=== PATIENT | male | born 1950 | race Caucasian/White ===

== ENCOUNTER 2017-02-19 07:51 | Inpatient (IN) ==
[2017-02-19] MEDS ORDERED: 0.9 % Sodium Chloride 1,000 ML IVC ONE ×3 (08:03→11:12)
[2017-02-19] MEDS ORDERED: *HR* Morphine 2 MG/ML SYRINGE IVP ONE ×2 (08:03→11:12)
[2017-02-19] MEDS ORDERED: Ondansetron 4 MG/2 ML VIAL IVP ONE ×2 (08:03→11:12)
[2017-02-19] MEDS ORDERED: Verapamil 5 MG/2 ML VIAL IVP ONE (08:04)
--- NOTE | 2017-02-19 08:05 | Emergency Department Note ---
Disposition Clinical Impression: Pneumonitis, Leukocytosis, Acute exacerbation of chronic obstructive airways disease, Diarrhea Disposition: Admitted As Inpatient General Adult HPI - General Chief complaint: ED Shortness of Breath/Dyspnea Stated complaint: LAILA Time Seen by Provider: 02/19/17 07:52 Source: patient, EMS Limitations: no limitations - History of Present Illness Pain Scale: 8 - Related Data Home Medications Medication Instructions Recorded Confirmed Albuterol Neb [Proventil Neb] 2.5 mg IH TID 02/19/17 02/19/17 Albuterol Sulfate [Albuterol 2 puff IH Q6H PRN 02/19/17 02/19/17 Inhaler] Alendronate Sodium [Fosamax] 70 mg PO WE 02/19/17 02/19/17 Alprostadil [[place]] 500 mcg UR AD PRN 02/19/17 02/19/17 Atorvastatin [Lipitor] 40 mg PO HS 02/19/17 02/19/17 Budesonide/Formoterol 160/4.5 2 puff IH BIDR 02/19/17 02/19/17 [Symbicort 160/4.5] Cetirizine HCl [All Day Allergy] 10 mg PO DAILY 02/19/17 02/19/17 Diclofenac Sodium [Voltaren] 1 appl TP BID 02/19/17 02/19/17 Gabapentin [Neurontin] 900 mg PO TID 02/19/17 02/19/17 Melatonin 10 mg PO HS 02/19/17 02/19/17 Multivitamin [Multi-Day Vitamins] 1 each PO DAILY 02/19/17 02/19/17 Nicotine Patch [Nicoderm] 7 mg TD DAILY 02/19/17 02/19/17 Omeprazole [PriLOSEC] 20 mg PO DAILY 02/19/17 02/19/17 Oxycodone HCl/Acetaminophen 1 each PO 5XD PRN 02/19/17 02/19/17 [Percocet 10-325 mg Tablet] Potassium Chloride [K-Tab ER] 10 meq PO DAILY 02/19/17 02/19/17 Sertraline [Zoloft] 100 mg PO DAILY 02/19/17 02/19/17 Theophylline Anhydrous [Oliver-24] 200 mg PO DAILY 02/19/17 02/19/17 Verapamil HCl [Verapamil ER] 180 mg PO DAILY 02/19/17 02/19/17 Zolpidem [Ambien] 10 mg PO HS 02/19/17 02/19/17 predniSONE [PredniSONE] 10 mg PO DAILY 02/19/17 02/19/17 Allergies Allergy/AdvReac Type Severity Reaction Status Date / Time tiotropium Allergy Rash Verified 03/15/16 22:23 [From Spiriva with HandiHaler] bee stings AdvReac Anaphylaxis Uncoded 02/19/17 14:16 Past Medical History - Past Medical History Medical history: Reports: atrial fibrillation, COPD, coronary artery disease, fibromyalgia, GERD, hyperlipidemia, hypertension, valvular heart disease Surgical history: Reports: appendectomy, other Psychiatric history: Reports: anxiety, depression - Social History Smoking Status: Current every day smoker Smokeless Tobacco Status: No Alcohol use: Reports: none Drug use: Reports: none Physical Exam - General Limitations: no limitations General appearance: alert, in distress Course Vital Signs Temperature 97.8 F 02/19/17 07:52 Pulse Rate 132 02/19/17 07:52 Respiratory Rate 28 02/19/17 07:52 Blood Pressure 119/67 02/19/17 07:52 O2 Sat by Pulse Oximetry 99 02/19/17 07:52 Temperature 98.5 F 02/20/17 11:07 Pulse Rate 89 02/20/17 11:07 Respiratory Rate 18 02/20/17 11:07 Blood Pressure 121/82 02/20/17 11:07 O2 Sat by Pulse Oximetry 98 02/20/17 11:07 Oxygen Delivery Oxygen Delivery Nasal Cannula Medical Decision Making - Lab Data Result diagrams: 02/20/17 03:56 02/20/17 03:56 Lab Results 02/19/17 02/19/17 02/19/17 Range/Units 08:20 08:20 08:20 WBC 21.3 H (4.3-11.1) K/mcL RBC 5.12 (4.19-5.50) M/mcL Hgb 14.7 (12.9-16.9) g/dL Hct 45.3 (37.5-50.1) % MCV 88.5 (83.0-100.0) fL MCH 28.7 (28.0-33.3) pg MCHC 32.5 (31.6-35.5) g/dL RDW 14.0 (11.5-14.5) % Plt Count 332 (140-400) K/mcL MPV 8.9 L (9.4-12.4) fL Immature Gran % 0.9 (0-4) % Seg Neutrophils % 81.3 % Lymphocytes % 9.5 % Monocytes % 7.2 % Eosinophils % 0.8 % Basophils % 0.3 % Neutrophils # 17.3 H (1.6-8.9) K/mcL Lymphocytes # 2.0 (0.6-4.6) K/mcL Monocytes # 1.5 H (0.0-1.3) K/mcL Eosinophils # 0.2 (0.0-0.6) K/mcL Basophils # 0.1 (0.0-0.2) K/mcL D-Dimer (0-500) ng/mLFEU Sodium (136-145) mEq/L Potassium (3.5-4.5) mEq/L Chloride (98-109) mEq/L Carbon Dioxide (19-29) mEq/L BUN (8-26) mg/dL Creatinine (0.72-1.25) mg/dL Est GFR ( Amer) (> 60) Est GFR (Non-Af Amer) (> 60) BUN/Creatinine Ratio (6-26) Glucose (70-99) mg/dL Calculated Osmolality (280-300) Lactic Acid 1.0 (0.5-2.2) mmol/L Calcium (8.6-10.8) mg/dL Total Bilirubin (0.2-1.2) mg/dL Direct Bilirubin (0.0-0.5) mg/dL Indirect Bilirubin (0.0-1.2) mg/dL AST (5-34) Units/L ALT (0-55) Units/L Alkaline Phosphatase (38-126) Units/L Troponin I 0.02 (0-0.03) ng/mL B-Natriuretic Peptide (0-100) pg/mL Serum Total Protein (6.0-8.3) g/dL Albumin (3.5-5.0) g/dL Globulin (2.4-3.5) g/dL Albumin/Globulin Ratio (1.1-2.2) Lipase (8-78) Units/L Stl C. diff Tox B Gene (Negative) 02/19/17 02/19/17 02/19/17 Range/Units 08:20 08:20 11:27 WBC (4.3-11.1) K/mcL RBC (4.19-5.50) M/mcL Hgb (12.9-16.9) g/dL Hct (37.5-50.1) % MCV (83.0-100.0) fL MCH (28.0-33.3) pg MCHC (31.6-35.5) g/dL RDW (11.5-14.5) % Plt Count (140-400) K/mcL MPV (9.4-12.4) fL Immature Gran % (0-4) % Seg Neutrophils % % Lymphocytes % % Monocytes % % Eosinophils % % Basophils % % Neutrophils # (1.6-8.9) K/mcL Lymphocytes # (0.6-4.6) K/mcL Monocytes # (0.0-1.3) K/mcL Eosinophils # (0.0-0.6) K/mcL Basophils # (0.0-0.2) K/mcL D-Dimer (0-500) ng/mLFEU Sodium 136 (136-145) mEq/L Potassium 4.2 (3.5-4.5) mEq/L Chloride 101 (98-109) mEq/L Carbon Dioxide 25 (19-29) mEq/L BUN 16 (8-26) mg/dL Creatinine 0.78 (0.72-1.25) mg/dL Est GFR ( Amer) > 60 (> 60) Est GFR (Non-Af Amer) > 60 (> 60) BUN/Creatinine Ratio 21 (6-26) Glucose 99 (70-99) mg/dL Calculated Osmolality 283 (280-300) Lactic Acid (0.5-2.2) mmol/L Calcium 9.6 (8.6-10.8) mg/dL Total Bilirubin 0.6 (0.2-1.2) mg/dL Direct Bilirubin 0.3 (0.0-0.5) mg/dL Indirect Bilirubin 0.3 (0.0-1.2) mg/dL AST 20 (5-34) Units/L ALT 14 (0-55) Units/L Alkaline Phosphatase 66 (38-126) Units/L Troponin I (0-0.03) ng/mL B-Natriuretic Peptide 44 (0-100) pg/mL Serum Total Protein 8.0 (6.0-8.3) g/dL Albumin 2.7 L (3.5-5.0) g/dL Globulin 5.3 H (2.4-3.5) g/dL Albumin/Globulin Ratio 0.5 L (1.1-2.2) Lipase 10 (8-78) Units/L Stl C. diff Tox B Gene Negative (Negative) 02/19/17 02/19/17 02/19/17 Range/Units 13:34 14:42 14:42 WBC (4.3-11.1) K/mcL RBC (4.19-5.50) M/mcL Hgb (12.9-16.9) g/dL Hct (37.5-50.1) % MCV (83.0-100.0) fL MCH (28.0-33.3) pg MCHC (31.6-35.5) g/dL RDW (11.5-14.5) % Plt Count (140-400) K/mcL MPV (9.4-12.4) fL Immature Gran % (0-4) % Seg Neutrophils % % Lymphocytes % % Monocytes % % Eosinophils % % Basophils % % Neutrophils # (1.6-8.9) K/mcL Lymphocytes # (0.6-4.6) K/mcL Monocytes # (0.0-1.3) K/mcL Eosinophils # (0.0-0.6) K/mcL Basophils # (0.0-0.2) K/mcL D-Dimer 1183 H (0-500) ng/mLFEU Sodium (136-145) mEq/L Potassium (3.5-4.5) mEq/L Chloride (98-109) mEq/L Carbon Dioxide (19-29) mEq/L BUN (8-26) mg/dL Creatinine (0.72-1.25) mg/dL Est GFR ( Amer) (> 60) Est GFR (Non-Af Amer) (> 60) BUN/Creatinine Ratio (6-26) Glucose (70-99) mg/dL Calculated Osmolality (280-300) Lactic Acid 0.7 0.7 (0.5-2.2) mmol/L Calcium (8.6-10.8) mg/dL Total Bilirubin (0.2-1.2) mg/dL Direct Bilirubin (0.0-0.5) mg/dL Indirect Bilirubin (0.0-1.2) mg/dL AST (5-34) Units/L ALT (0-55) Units/L Alkaline Phosphatase (38-126) Units/L Troponin I (0-0.03) ng/mL B-Natriuretic Peptide (0-100) pg/mL Serum Total Protein (6.0-8.3) g/dL Albumin (3.5-5.0) g/dL Globulin (2.4-3.5) g/dL Albumin/Globulin Ratio (1.1-2.2) Lipase (8-78) Units/L Stl C. diff Tox B Gene (Negative) Attestation Statement - Attestation Attestation: For this encounter, I have reviewed the DRY MIXER or PA documentation, treatment plan, and medical decision making; and I have had face to face time with this patient. [id number] time provided Patient presents by EMS complaining of cough, dyspnea, centralized abdominal pain. Patient appears tachypneic and dyspneic on exam. Appears older than stated age. Tachycardic narrow complex rhythm reviewed on the ECG. Patient notes she has a history of atrial fibrillation but does not take blood thinners
[2017-02-19] MEDS ORDERED: Albuterol 2.5 MG/3 ML NEBULIZER IH ONE (08:07)
--- NOTE | 2017-02-19 08:22 | Emergency Department Note ---
Disposition Clinical Impression: Pneumonitis, Acute exacerbation of chronic obstructive airways disease Leukocytosis Qualifiers: Leukocytosis type: unspecified Qualified Code(s): D72.829 - Elevated white blood cell count, unspecified Diarrhea Qualifiers: Diarrhea type: presumed infectious Qualified Code(s): A09 - Infectious gastroenteritis and colitis, unspecified Disposition: Admitted As Inpatient Forms: ED Satisfaction Letter Abdominal Pain HPI - General Chief Complaint: ED Shortness of Breath/Dyspnea Stated Complaint: LAILA Time Seen by Provider: 02/19/17 07:52 Source: patient, family, EMS Mode of arrival: EMS Limitations: no limitations Nursing Notes Reviewed: Yes Vital Signs Reviewed: Yes - History of Present Illness Pt Subjective Complaint: abdominal pain, other (short of breath, cough, fever, sweating) Onset (ago): day(s) Consistency: constant, Worsening Location: epigastric Pain Severity: moderate Pain Scale: 8 Quality: fullness (like a knot) Radiation: none Migration to: no migration Improves with: nothing Worsens with: nothing Context: other ("sick for a few days and getting worse, now having diarrhea too. ") Associated symptoms: Reports: nausea, diarrhea, fever, chills. Denies: vomiting , constipation, dysuria, hematemesis, hematochezia, melena, hematuria, anorexia , syncope Treatments prior to arrival: none (patient states that he did not take his home meds - Verapamil - today) - Related Data Home Medications Medication Instructions Recorded Confirmed Albuterol Neb [Proventil Neb] 2.5 mg IH TID 02/19/17 02/19/17 Albuterol Sulfate [Albuterol 2 puff IH Q6H PRN 02/19/17 02/19/17 Inhaler] Alendronate Sodium [Fosamax] 70 mg PO WE 02/19/17 02/19/17 Alprostadil [[place]] 500 mcg UR AD PRN 02/19/17 02/19/17 Atorvastatin [Lipitor] 40 mg PO HS 02/19/17 02/19/17 Budesonide/Formoterol 160/4.5 2 puff IH BIDR 02/19/17 02/19/17 [Symbicort 160/4.5] Cetirizine HCl [All Day Allergy] 10 mg PO DAILY 02/19/17 02/19/17 Diclofenac Sodium [Voltaren] 1 appl TP BID 02/19/17 02/19/17 Gabapentin [Neurontin] 900 mg PO TID 02/19/17 02/19/17 Melatonin 10 mg PO HS 02/19/17 02/19/17 Multivitamin [Multi-Day Vitamins] 1 each PO DAILY 02/19/17 02/19/17 Nicotine Patch [Nicoderm] 7 mg TD DAILY 02/19/17 02/19/17 Omeprazole [PriLOSEC] 20 mg PO DAILY 02/19/17 02/19/17 Oxycodone HCl/Acetaminophen 1 each PO 5XD PRN 02/19/17 02/19/17 [Percocet 10-325 mg Tablet] Potassium Chloride [K-Tab ER] 10 meq PO DAILY 02/19/17 02/19/17 Sertraline [Zoloft] 100 mg PO DAILY 02/19/17 02/19/17 Theophylline Anhydrous [Oliver-24] 200 mg PO DAILY 02/19/17 02/19/17 Verapamil HCl [Verapamil ER] 180 mg PO DAILY 02/19/17 02/19/17 Zolpidem [Ambien] 10 mg PO HS 02/19/17 02/19/17 predniSONE [PredniSONE] 10 mg PO DAILY 02/19/17 02/19/17 Allergies Allergy/AdvReac Type Severity Reaction Status Date / Time tiotropium Allergy Rash Verified 03/15/16 22:23 [From Spiriva with HandiHaler] All systems ED: reviewed and negative except as stated. Review of Systems: As Per HPI Constitutional: Reports: fever, chills, weakness. Denies: weight change, night sweats Eyes: Denies: eye pain, eye discharge, vision change ENT ED: Denies: ear pain, throat pain, congestion, dysphagia Cardiovascular: Reports: dyspnea on exertion. Denies: chest pain, palpitations (Laboratory), orthopnea, edema, syncope Respiratory: Reports: cough ("different than usual"), dyspnea ("about as bad as usual"), wheezes, sputum production ("yellow, different than usual"). Denies: hemoptysis, stridor Gastrointestinal: Reports: as per HPI, abdominal pain, nausea, diarrhea. Denies : vomiting, constipation, hematemesis, melena, hematochezia Genitourinary: Denies: urgency, dysuria, frequency, hematuria Musculoskeletal: Reports: back pain ("Chronic, low back pain" "No worse than usual"), neck pain ("also chronic"). Denies: joint swelling, arthralgia Integumentary: Denies: rash, abrasion, lesions, pruritus Neurological: Reports: weakness ("all over"). Denies: headache, numbness, paresthesias, confusion, abnormal gait, vertigo Endocrine: Reports: fatigue Hematological/Lymphatic: Denies: easy bleeding, easy bruising Abdominal Pain PMH - Past Medical History Medical history: Reports: atrial fibrillation, COPD, coronary artery disease, fibromyalgia, GERD, hyperlipidemia, hypertension, valvular heart disease Male Surgical History: Reports: Adenoidectomy, Tonsillectomy Psychiatric history: Reports: anxiety, depression - Social History Smoking status: Current every day smoker Alcohol use: Reports: none Drug use: Reports: none Physical Exam - General Limitations: no limitations General appearance: alert, in distress - Head Head exam: atraumatic, normocephalic, normal inspection - Eye Eye exam: Present: normal appearance, PERRL, EOMI. Absent: scleral icterus, conjunctival injection, periorbital swelling - ENT ENT exam: mucous membranes dry - Neck Neck exam: Present: normal inspection, full ROM, trachea midline. Absent: meningismus, lymphadenopathy - Chest Chest inspection: Present: normal inspection, symmetric chest wall rise - Respiratory Respiratory exam: Present: respiratory distress, wheezes, prolonged expiratory phase, other (course rhonchi - bilateral lower). Absent: normal lung sounds bilaterally, stridor, accessory muscle use - Cardiovascular Cardiovascular exam: Present: tachycardia, irregular rhythm. Absent: systolic murmur, diastolic murmur - Abdominal Exam Abdominal exam: Present: soft, tenderness, hyperactive bowel sounds. Absent: distention, guarding, rebound, rigidity, organomegaly, Skinner's sign, tenderness at McBurney's Point, ascites, mass, pulsatile mass Abdominal tenderness: Present: epigastrium, moderate - Extremities Exam Extremities exam: Present: normal inspection, full ROM, normal capillary refill. Absent: tenderness, pedal edema - Back Exam Back exam: Present: normal inspection - Neurological Exam Neurological exam: Present: alert, oriented X3, CN II-XII intact - Psychiatric Psychiatric exam: Present: normal affect, normal mood - Skin Skin exam: Present: warm, dry, intact, normal color Course Course Narrative: Patient presents with his for evaluation of epigastric abdominal pain for the past several days. He states, "I am just really sick." He describes feeling feverish with episodes of diaphoresis. He has had the pain for 3-4 days and diarrhea that began last night. He is tachycardic and tachypneic. Will give fluids, pain meds, check labs and scan chest and belly Labs show an elevated white blood cell count and low albumin. Chest x-ray shows no acute abnormality. However, chest CT and CT of the abdomen and pelvis , both show basilar infiltrate along with some chronic changes to both lungs. Incidental findings include lung and liver nodules. Given the patient's fever, chills, leukocytosis, change in cough and change in sputum, I am concerned that the pneumonitis is from pneumonia. Antibiotics have been ordered. Patient will be admitted. Case was discussed with the hospitalist. She recommends Rocephin and azithromycin as opposed to the vancomycin and Zosyn, which had been ordered. Unfortunately, the nurse had already given the vancomycin and Zosyn, so I canceled the order for the other antibiotics. Patient was accepted for admission. - Reevaluation(s) Reevaluation #1: pain better, HR 90, Sat 98%, BP 108/62 Time: 08:39 Vital Signs Temperature 97.8 F 02/19/17 07:52 Pulse Rate 132 02/19/17 07:52 Respiratory Rate 28 02/19/17 07:52 Blood Pressure 119/67 02/19/17 07:52 O2 Sat by Pulse Oximetry 99 02/19/17 07:52 Temperature 97.8 F 02/19/17 07:52 Pulse Rate 132 02/19/17 07:52 Respiratory Rate 28 02/19/17 07:52 Blood Pressure 119/67 02/19/17 07:52 O2 Sat by Pulse Oximetry 99 02/19/17 07:52 Oxygen Delivery Oxygen Delivery Nasal Cannula Abdominal Pain - Medical Records Medical records reviewed: Yes I reviewed the patient's medical records. - Lab Data Lab results reviewed: Yes I reviewed the patient's lab results. Lab results narrative: Laboratory Last Values WBC 21.3 K/mcL (4.3-11.1) H 02/19/17 08:20 RBC 5.12 M/mcL (4.19-5.50) 02/19/17 08:20 Hgb 14.7 g/dL (12.9-16.9) 02/19/17 08:20 Hct 45.3 % (37.5-50.1) 02/19/17 08:20 MCV 88.5 fL (83.0-100.0) 02/19/17 08:20 MCH 28.7 pg (28.0-33.3) 02/19/17 08:20 MCHC 32.5 g/dL (31.6-35.5) 02/19/17 08:20 RDW 14.0 % (11.5-14.5) 02/19/17 08:20 Plt Count 332 K/mcL (140-400) 02/19/17 08:20 MPV 8.9 fL (9.4-12.4) L 02/19/17 08:20 Immature Gran % 0.9 % (0-4) 02/19/17 08:20 Seg Neutrophils % 81.3 % 02/19/17 08:20 Lymphocytes % 9.5 % 02/19/17 08:20 Monocytes % 7.2 % 02/19/17 08:20 Eosinophils % 0.8 % 02/19/17 08:20 Basophils % 0.3 % 02/19/17 08:20 Neutrophils # 17.3 K/mcL (1.6-8.9) H 02/19/17 08:20 Lymphocytes # 2.0 K/mcL (0.6-4.6) 02/19/17 08:20 Monocytes # 1.5 K/mcL (0.0-1.3) H 02/19/17 08:20 Eosinophils # 0.2 K/mcL (0.0-0.6) 02/19/17 08:20 Basophils # 0.1 K/mcL (0.0-0.2) 02/19/17 08:20 Sodium 136 mEq/L (136-145) 02/19/17 08:20 Potassium 4.2 mEq/L (3.5-4.5) 02/19/17 08:20 Chloride 101 mEq/L (98-109) 02/19/17 08:20 Carbon Dioxide 25 mEq/L (19-29) 02/19/17 08:20 BUN 16 mg/dL (8-26) 02/19/17 08:20 Creatinine 0.78 mg/dL (0.72-1.25) 02/19/17 08:20 Est GFR ( Amer) > 60 (> 60) 02/19/17 08:20 Est GFR (Non-Af Amer) > 60 (> 60) 02/19/17 08:20 BUN/Creatinine Ratio 21 (6-26) 02/19/17 08:20 Glucose 99 mg/dL (70-99) 02/19/17 08:20 Calculated Osmolality 283 (280-300) 02/19/17 08:20 Lactic Acid 1.0 mmol/L (0.5-2.2) 02/19/17 08:20 Calcium 9.6 mg/dL (8.6-10.8) 02/19/17 08:20 Total Bilirubin 0.6 mg/dL (0.2-1.2) 02/19/17 08:20 Direct Bilirubin 0.3 mg/dL (0.0-0.5) 02/19/17 08:20 Indirect Bilirubin 0.3 mg/dL (0.0-1.2) 02/19/17 08:20 AST 20 Units/L (5-34) 02/19/17 08:20 ALT 14 Units/L (0-55) 02/19/17 08:20 Alkaline Phosphatase 66 Units/L (38-126) 02/19/17 08:20 Troponin I 0.02 ng/mL (0-0.03) 02/19/17 08:20 B-Natriuretic Peptide 44 pg/mL (0-100) 02/19/17 08:20 Serum Total Protein 8.0 g/dL (6.0-8.3) 02/19/17 08:20 Albumin 2.7 g/dL (3.5-5.0) L 02/19/17 08:20 Globulin 5.3 g/dL (2.4-3.5) H 02/19/17 08:20 Albumin/Globulin Ratio 0.5 (1.1-2.2) L 02/19/17 08:20 Lipase 10 Units/L (8-78) 02/19/17 08:20 - Radiology Data Radiology results reviewed: Yes I reviewed the patient's radiology results. Chest X-Ray 02/19/17 08:02 IMPRESSION: Moderate to severe parenchymal scarring parahilar and upper lungs with emphysema and hilar retraction. This is unchanged. D/ / Blaise Bunch MD / Blaise Bunch MD Interpreting Provider: Blaise Bunch MD Abdomen/Pelvis CT 02/19/17 08:08 IMPRESSION: Liquefied stool is seen within the colon, in keeping with patient's history of diarrhea. Fluctuating heterogeneous and nodular infiltrate is seen at the lung bases, likely reflecting pneumonitis. A new 1.4 cm left lower lobe cavitary nodule is seen which may be infectious, though neoplasm cannot be excluded. Continued CT follow-up is recommended. 1.2 cm low-density lesion is seen within the right hepatic lobe, with density greater than simple cyst, technically indeterminate. Continued CT follow-up may be obtained as clinically warranted. D/ / Alvaro Juarez MD / Alvaro Juarez MD Interpreting Provider: Alvaro Juarez MD Chest CT 02/19/17 08:08 IMPRESSION: Extensive bullous and emphysematous change bilaterally with multifocal associated marginal thickening and pleural thickening. Multifocal ill-defined parenchymal airspace opacity and nodular densities are improved from the prior. There is also improvement of the mediastinal lymph nodes. These findings are indeterminate and may be related to a chronic inflammatory/ infectious process or granulomatous process that has improved. Recurrent inflammatory/ infectious or granulomatous process would be difficult to exclude given the long interval between the 2 exams. Neoplastic nodules less likely. D/ / Saeid Monterroso / Saeid Monterroso Interpreting Provider: Saeid Monterroso
[2017-02-19 08:27] LABS: Basophils # 0.1 K/mcL (0.0-0.2); Basophils % 0.3 %; Eosinophils # 0.2 K/mcL (0.0-0.6); Eosinophils % 0.8 %; Hematocrit 45.3 % (37.5-50.1); Hemoglobin 14.7 g/dL (12.9-16.9); Immature Granulocytes % 0.9 % (0-4); Lymphocytes % 9.5 %; Mean Corpuscular HGB Conc 32.5 g/dL (31.6-35.5); Mean Corpuscular Hemoglobin 28.7 pg (28.0-33.3); Mean Corpuscular Volume 88.5 fL (83.0-100.0); Mean Platelet Volume 8.9 fL (9.4-12.4); Monocytes # 1.5 K/mcL (0.0-1.3); Monocytes % 7.2 %; Neutrophils # 17.3 K/mcL (1.6-8.9); Platelet Count 332 K/mcL (140-400); Red Blood Count 5.12 M/mcL (4.19-5.50); Segmented Neutrophils % 81.3 %
[2017-02-19 08:43] LABS: Alanine Aminotransferase 14 Units/L (0-55); Albumin 2.7 g/dL (3.5-5.0); Albumin/Globulin Ratio 0.5 (1.1-2.2); Alkaline Phosphatase 66 Units/L (38-126); Aspartate Amino Transferase 20 Units/L (5-34); BUN/Creatinine Ratio 21 (6-26); Bilirubin,Direct 0.3 mg/dL (0.0-0.5); Bilirubin,Indirect 0.3 mg/dL (0.0-1.2); Bilirubin,Total 0.6 mg/dL (0.2-1.2); Blood Urea Nitrogen 16 mg/dL (8-26); Calcium 9.6 mg/dL (8.6-10.8); Carbon Dioxide 25 mEq/L (19-29); Chloride 101 mEq/L (98-109); Globulin 5.3 g/dL (2.4-3.5); Glucose 99 mg/dL (70-99); Lipase 10 Units/L (8-78); Osmolality,Calculated 283 (280-300); Potassium 4.2 mEq/L (3.5-4.5); Sodium 136 mEq/L (136-145); eGFR For African Americans > 60 (> 60); eGFR For Non-African Americans > 60 (> 60)
[2017-02-19] MEDS ORDERED: Piperacillin/Tazobactam 4.5 GM in D5% in Water (Mini-Bag+) 100 ML IVPB ONE ×2 (11:07→12:00)
[2017-02-19] MEDS ORDERED: Vancomycin 1,000 MG in D5% in Water 250 ML IVPB ONE ×2 (11:13→12:00)
[2017-02-19] MEDS ORDERED: methylPREDNISolone 125 MG/2 ML VIAL IVP ONE (11:14)
[2017-02-19] MEDS ORDERED: Azithromycin 500 MG in D5% in Water 250 ML IVPB ONE (11:40)
[2017-02-19] MEDS ORDERED: Naloxone 0.4 MG/ML INJ IVP PRN (13:56)
[2017-02-19] MEDS ORDERED: Ondansetron 4 MG/2 ML VIAL IVP PRN (13:59)
[2017-02-19] MEDS ORDERED: Acetaminophen 325 MG TABLET PO PRN (13:59)
[2017-02-19] MEDS ORDERED: ALPROSTADIL 500 MCG UR PRN (14:08)
[2017-02-19] MEDS ORDERED: *HR* Dextrose 50 % in Water (Syg) 50 ML SYRINGE IVP PRN (14:17)
[2017-02-19] MEDS ORDERED: Dextrose Gel 15 GM PO PRN ×2 (14:17)
[2017-02-19] MEDS ORDERED: D5% in Water 1,000 ML IVC PRN (14:17)
[2017-02-19] MEDS: 0.9 % Sodium Chloride 1,000 ML IVC SCH ×2 (14:30→23:56)
[2017-02-19] MEDS: Nicotine 14 MG PATCH.TD24 TD SCH (15:15)
[2017-02-19] MEDS: Azithromycin 500 MG in D5% in Water 250 ML IVPB SCH (15:15)
[2017-02-19] MEDS: Gabapentin 300 MG CAPSULE PO SCH ×2 (15:20→21:16)
[2017-02-19] MEDS: *HR* Morphine 2 MG/ML SYRINGE IVP PRN (15:20)
[2017-02-19] MEDS: Aspirin Enteric Coated 81 MG Tablet PO SCH (15:50)
--- NOTE | 2017-02-19 16:30 | Event Note ---
Date of Encounter: 02/19/17 Time of Encounter: 16:24 Patient is seen and examined independently on 02/19/17 66 M with medical history of emphysema, steroid dependent COPD on home oxygen. He has additional medical history of atrial fibrillation, coronary artery disease, fibromyalgia, GERD tobacco abuse. He smokes 1-2 He reports 4 days history of shortness of breath, nausea, epigastric pain, fever and chills. He also reports worsening cough productive of sputum. On presentation to the ER he was found to be tachycardic heart rate in the 130s , respiratory rate 24, and hypoxic. Work up showed Leukocytosis with a total white cell count of 21,800, his hemoglobin is normal. troponin negative, Chem WNL. Chest CT shows extensive bullous emphysema, and bilateral pneumonia. On physical exam, his heart rate is now within normal limits 88 bpm, his blood pressure is normal, his respiratory rate is 20, he is saturating 96% on 2 L of oxygen by nasal cannula, he is not in any form of respiratory distress, he speaks full sentences. His conjunctiva is not pale, sclerae anicteric. He is not cyanotic. He has bilateral rales and rhonchi on the lung bases. Heart sounds S1-S2 only, no murmurs gallops or rubs. Abdomen is soft and nontender no palpable organ enlargement. Extremities with no pedal edema. Labs and imaging reviewed as stated above. Assessment and plan. 1. Presumed sepsis secondary to bilateral pneumonia, community-acquired, patient has had no recent hospital hospitalizations. Continue ceftriaxone 2 g daily, azithromycin 500 mg daily IV. Send urine for Legionella and streptococcal antigen. Obtain sputum culture, obtain blood culture. Continue oxygen supplements. BP is WNL, lactate is normal. 2. COPD exacerbation continue Solu-Medrol, nebs every 4, and albuterol when necessary. 3. Atrial fibrillation-CHADS score is 1. Patient is not on anticoagulation at home. Continue home medications. 4. Coronary artery disease patient has no chest pain, continue home medications. Tobacco cessation counseling is done. Rest of details as in DONNA Marsh's documentation.
[2017-02-19] MEDS: Ipratropium/Albuterol Neb 3 ML IH SCH ×2 (17:26→21:04)
[2017-02-19 17:31] LABS: ABG Base Excess -2.2 mEq/L (-2.0 to 3.0); ABG HCO3 24 mEq/L (21-27); ABG Oxygen Saturation 96 % (95-98); ABG PCO2 47 mmHg (35-45); ABG PH 7.32 pH Units (7.32-7.45); ABG PO2 90 mmHg (85-104); ABG TCO2 25.6 mEq/L (20-26)
[2017-02-19 17:35] LABS: Blood Gas FiO2 28 %
[2017-02-19] MEDS: Insulin LISPRO 300 UNITS/3 ML VIAL SQ SCH (17:45)
[2017-02-19] MEDS ORDERED: Melatonin 3 MG TABLET PO SCH (21:00)
[2017-02-19] MEDS ORDERED: Insulin LISPRO 300 UNITS/3 ML VIAL SQ SCH (21:00)
[2017-02-19] MEDS: Pantoprazole 40 MG VIAL IVP SCH (21:15)
[2017-02-19] MEDS: *HR* Heparin 5,000 UNIT/ML VIAL SQ SCH (21:16)
[2017-02-19] MEDS: (Diclofenac Sodium [Voltaren] 1 APPL) TP SCH (21:24)
--- NOTE | 2017-02-19 22:20 | Internal Med History&Physical ---
<Manoj Perez - Last Filed: 02/19/17 23:28> Date of Encounter: 02/19/17 Time of Encounter: 14:00 Assessment and Plan (1) Sepsis Current visit: Yes Status: Acute Patient presents with sepsis criteria secondary to bilateral pneumonia which is suspected to be community-acquired due to patient not having any recent hospitalizations. Legionella antigen and streptococcal pneumoniae antigen ordered. Sputum culture ordered. Blood cultures 2 ordered. Will administer IV ceftriaxone 2 g daily and azithromycin 500 mg daily. Patient will be placed on continuous cardiac telemetry, supplemental O2 with SPO2 monitoring, and follow-up labs ordered. Currently BP is within normal limits in lactate is normal. Qualifiers: Sepsis type: sepsis due to unspecified organism Qualified Code(s): A41.9 - Sepsis, unspecified organism (2) Leukocytosis Current visit: Yes Status: Acute Patient presents with leukocytosis secondary to sepsis. Patient's WBC on admission to ED is 21.3. Will monitor patient's WBC through follow-up labs. Qualifiers: Leukocytosis type: unspecified Qualified Code(s): D72.829 - Elevated white blood cell count, unspecified (3) Acute exacerbation of chronic obstructive airways disease Current visit: Yes Status: Acute Patient presents with acute exacerbation of COPD. On examination, patient is extremely short of breath and reports he uses oxygen nightly at 2 L. He denies use of BiPAP or CPAP. We will continue patient's albuterol when necessary, administer Solu-Medrol, and order DuoNebs every 4 scheduled. (4) Afib Current visit: Yes Status: Chronic Patient presents with history of chronic atrial fibrillation. Patient currently denies any chest pain and initial troponin is negative. CHADS score = 1. Patient placed on continuous cardiac telemetry. We will repeat EKG. Qualifiers: Atrial fibrillation type: chronic Qualified Code(s): I48.2 - Chronic atrial fibrillation (5) CAD (coronary artery disease) Current visit: Yes Status: Chronic Patient presents with history of chronic coronary artery disease. Patient currently denies any chest pain and troponin is negative. We will continue patient's home medications. Patient placed on continuous cardiac telemetry to current sepsis infection and hx of atrial fibrillation. Qualifiers: Coronary Disease-Associated Artery/Lesion type: unspecified vessel or lesion type [place] vs. transplanted heart: [place] heart Associated angina: angina presence unspecified Qualified Code(s): I25.10 - Atherosclerotic heart disease of [place] coronary artery without angina pectoris (6) GERD (gastroesophageal reflux disease) Current visit: Yes Status: Chronic Patient reports with history of chronic gastroesophageal reflux disease. IVP Zofran every 6 when necessary an IVP Protonix 40 mg twice a day ordered. Qualifiers: Esophagitis presence: esophagitis presence not specified Qualified Code(s) : K21.9 - Gastro-esophageal reflux disease without esophagitis (7) HLD (hyperlipidemia) Current visit: Yes Status: Chronic Patient presents with history of chronic hyperlipidemia. Lipid panel ordered and will continue patient's Lipitor. Qualifiers: Hyperlipidemia type: pure hypercholesterolemia Qualified Code(s): E78.00 - Pure hypercholesterolemia, unspecified; E78.0 - Pure hypercholesterolemia (8) HTN (hypertension) Current visit: Yes Status: Chronic Patient presents with history of chronic hypertension. Will monitor patient and vital signs and continue patient's verapamil. Qualifiers: Hypertension type: essential hypertension Qualified Code(s): I10 - Essential (primary) hypertension (9) DVT prophylaxis Current visit: Yes Status: Acute Patient placed on DVT prophylaxis due to current admission protocol and current symptoms. Heparin 5000 units SQ every 8 ordered. Internal Medicine - H&P: HPI Chief complaint: SOB/Dyspnea Admitted From: Emergency Dept Plans for Post Hospital Care: Home History of present illness: Mr. Bai is a 66 year old male with medical history of atrial fibrillation COPD with steroid dependency, CAD, fibromyalgia from previous shingles, HLD, HTN, valvular heart disease, and GERD presents to the ED today with a four-day history of SOB, nausea, fever, chills, and epigastric pain area and he also reports cough with sputum production. On admission to ED, patient needs sepsis protocol based on tachycardia and heart rate in 130s, RR 24, hypoxia, and leukocytosis with WBC of 21.8. Troponin is negative and patient currently denies chest pain. Chest CT today shows extensive bullous emphysema and bilateral pneumonia. On physical examination the ED, patient's heart rate is now less than 90 bpm, BP of 119/67 and RR 19 with SPO2 of 96% on 2 L of oxygen via nasal cannula. Patient is hemodynamically stable and currently in no distress. Information taken from patient, chart review, and previous medical records. Mr. Plueckhahn is at high risk for further morbidity and infection based on sepsis criteria, current symptoms, and risk factors and will be placed as inpatient. Past Med Surg Social Fam HX - Past Medical History Source: patient, old records reviewed Medical history: atrial fibrillation, COPD, coronary artery disease, fibromyalgia, GERD, hyperlipidemia, hypertension, valvular heart disease Psychiatric history: anxiety, depression - Past Surgical History Surgical History: appendectomy, other - Social History Smoking Status: Current every day smoker Packs per day: 1 PPD Smokeless Tobacco Status: No Alcohol use: none Drug use: none Current living situation: Home, With Family Activity Level: Independent ambulation Recent Out of Country Travel Within the Last 8 Weeks: No Exposure or Possible Exposure to Illness During Travel: No - Family History Sister Race: Family Member Ethnicity: Non- Living Status: Still Living Hx Family Cardiac Disorders: Yes (HD) Hx Family Cancer: Yes (Breast) Brother History Unknown: Yes Race: Family Member Ethnicity: Non- Living Status: Still Living Mother History Unknown: Yes Race: Family Member Ethnicity: Non- Living Status: Father Race: Family Member Ethnicity: Non- Living Status: Cause of : Bladder cancer Hx Family Cancer: Yes (Bladder) Internal Medicine - H&P: Meds Albuterol Neb [Proventil Neb] 2.5 mg IH TID 02/19/17 [History] Albuterol Sulfate [Albuterol Inhaler] 2 puff IH Q6H PRN 02/19/17 [History] Alendronate Sodium [Fosamax] 70 mg PO WE 02/19/17 [History] Alprostadil [[place]] 500 mcg UR AD PRN 02/19/17 [History] Atorvastatin [Lipitor] 40 mg PO HS 02/19/17 [History] Budesonide/Formoterol 160/4.5 [Symbicort 160/4.5] 2 puff IH BIDR 02/19/17 [ History] Cetirizine HCl [All Day Allergy] 10 mg PO DAILY 02/19/17 [History] Diclofenac Sodium [Voltaren] 1 appl TP BID 02/19/17 [History] Gabapentin [Neurontin] 900 mg PO TID 02/19/17 [History] Melatonin 10 mg PO HS 02/19/17 [History] Multivitamin [Multi-Day Vitamins] 1 each PO DAILY 02/19/17 [History] Nicotine Patch [Nicoderm] 7 mg TD DAILY 02/19/17 [History] Omeprazole [PriLOSEC] 20 mg PO DAILY 02/19/17 [History] Oxycodone HCl/Acetaminophen [Percocet 10-325 mg Tablet] 1 each PO 5XD PRN [History] Potassium Chloride [K-Tab ER] 10 meq PO DAILY 02/19/17 [History] Sertraline [Zoloft] 100 mg PO DAILY 02/19/17 [History] Theophylline Anhydrous [[place]-24] 200 mg PO DAILY 02/19/17 [History] Verapamil HCl [Verapamil ER] 180 mg PO DAILY 02/19/17 [History] Zolpidem [Ambien] 10 mg PO HS 02/19/17 [History] predniSONE [PredniSONE] 10 mg PO DAILY 02/19/17 [History] 3 Allergy/AdvReac Type Severity Reaction Status Date / Time tiotropium Allergy Rash Verified 03/15/16 22:23 [From Spiriva with HandiHaler] bee stings AdvReac Anaphylaxis Uncoded 02/19/17 14:16 All Systems PM: A 10-system review of systems was performed and is negative for pertinent findings except as documented above in the HPI. - Constitutional Constitutional: as per HPI, chills, fever(s), no night sweats - EENT Eyes: no change in vision, no discharge, no pain, no photophobia Ears: no ear discharge, no ear pain, no tinnitus Nose, mouth and throat: no dysphagia, no nasal discharge, no neck pain, no sore throat - Breasts Breasts: as per HPI - Cardiovascular Cardiovascular ROS IM: as per HPI, dyspnea, dyspnea on exertion, irregular heart rhythm, no chest pain, no diaphoresis, no lightheadedness, no palpitations , no syncope - Respiratory Respiratory: as per HPI, dyspnea, dyspnea on exertion, wheezing - Gastrointestinal Gastrointestinal: as per HPI, abdominal pain (Epigastric), nausea, no diarrhea, no hematemesis, no hematochezia, no melena, no vomiting - Genitourinary Genitourinary ROS male: as per HPI - Musculoskeletal Musculoskeletal ROS IM: no numbness, no tingling - Integumentary Integumentary IM: no rash, no unusual bruising - Neurological Neurological ROS: no confusion, no convulsions, no focal weakness, no numbness, no tingling, no tremor(s) - Psychiatric Psychiatric: as per HPI - Endocrine Endocrine IM: as per HPI - Hematologic/Lymphatic Hematologic/Lymphatic: no easy bruising - Allergic/Immunologic Allergic/Immunologic: as per HPI - Constitutional Vitals: Temp Pulse Resp BP Pulse Ox 98.1 F 74 16 105/60 97 02/19/17 19:42 02/19/17 19:42 02/19/17 19:42 02/19/17 19:42 02/19/17 19:42 General appearance: Present: cooperative, A&O X 3, pleasant, severe distress ( Respiratory), answers questions appropriately - Head Head exam: Present: atraumatic, normocephalic - Eye Eye exam: Present: PERRL, conjuntiva pink, sclera anicteric Pupils: Present: PERRL - ENT ENT exam: Present: normal exam, normal external ear exam - Neck Neck exam general surgery: Present: normal inspection, supple, trachea midline. Absent: lymphadenopathy - Respiratory Respiratory exam: Present: accessory muscle use, respiratory distress, wheezes. Absent: rales, rhonchi - Cardiovascular Cardiovascular exam: Present: irregular rhythm - GI/Abdominal GI/Abdominal exam: Present: normal bowel sounds, soft, no peritoneal signs. Absent: distended, tenderness - Rectal Rectal exam: Present: deferred - Additional comments: exam deferred. - Extremities Exam Extremities exam: Present: warm, radial pulses palpable and symmetrical. Absent : calf tenderness, cyanotic, pedal edema - Back Exam Back exam: Present: normal inspection - Neurological Exam Neurological exam: Present: CN II-XII intact, oriented X3, no focal deficits. Absent: pronater drift, facial droop, speech deficit - Psychiatric Psychiatric exam: Present: normal affect, normal mood - Skin Skin exam: Present: dry, intact Internal Med - H&P Results - Labs CBC & Chem 7: 02/19/17 08:20 02/19/17 08:20 - ABG Interpretation ABG results: 02/19/17 17:22 ABG pH 7.32 ABG pCO2 47 H ABG pO2 90 ABG HCO3 24 ABG Total CO2 25.6 ABG O2 Saturation 96 ABG Base Excess -2.2 L - Diagnostic Studies Chest x-ray Additional comments: Impressions Chest X-Ray 02/19/17 08:02 IMPRESSION: Moderate to severe parenchymal scarring parahilar and upper lungs with emphysema and hilar retraction. This is unchanged. D/ / Blaise Bunch MD / Blaise Bunch MD Interpreting Provider: Blaise Bunch MD CT scan - abdomen Additional comments: Impressions Abdomen/Pelvis CT 02/19/17 08:08 IMPRESSION: Liquefied stool is seen within the colon, in keeping with patient's history of diarrhea. Fluctuating heterogeneous and nodular infiltrate is seen at the lung bases, likely reflecting pneumonitis. A new 1.4 cm left lower lobe cavitary nodule is seen which may be infectious, though neoplasm cannot be excluded. Continued CT follow-up is recommended. 1.2 cm low-density lesion is seen within the right hepatic lobe, with density greater than simple cyst, technically indeterminate. Continued CT follow-up may be obtained as clinically warranted. D/ / Alvaro Juarez MD / Alvaro Juarez MD Interpreting Provider: Alvaro Juarez MD CT scan - chest Additional comments: Impressions Chest CT 02/19/17 08:08 IMPRESSION: Extensive bullous and emphysematous change bilaterally with multifocal associated marginal thickening and pleural thickening. Multifocal ill-defined parenchymal airspace opacity and nodular densities are improved from the prior. There is also improvement of the mediastinal lymph nodes. These findings are indeterminate and may be related to a chronic inflammatory/ infectious process or granulomatous process that has improved. Recurrent inflammatory/ infectious or granulomatous process would be difficult to exclude given the long interval between the 2 exams. Neoplastic nodules less likely. D/ / Saeid Monterroso / Saeid Monterroso Interpreting Provider: Saeid Monterroso <Dash Hodge T - Last Filed: 02/20/17 05:49> Date of Encounter: 02/20/17 Internal Medicine - H&P: HPI History of present illness: Mr. Plueckhahn is a 66 year old male All Systems PM: A 10-system review of systems was performed and is negative for pertinent findings except as documented above in the HPI. - Constitutional Vitals: Temp Pulse Resp BP Pulse Ox 97.8 F 93 16 150/85 95 02/20/17 03:40 02/20/17 03:40 02/20/17 04:06 02/20/17 03:40 02/20/17 04:06 Internal Med - H&P Results - Labs CBC & Chem 7: 02/20/17 03:56 02/20/17 03:56 Labs: Short CBC 02/20/17 Range/Units 03:56 WBC 20.8 H (4.3-11.1) K/mcL Hgb 12.3 L D (12.9-16.9) g/dL Hct 38.8 (37.5-50.1) % Plt Count 297 (140-400) K/mcL Neutrophils # 17.9 H (1.6-8.9) K/mcL BMP 02/20/17 03:56 Sodium 138 Potassium 4.4 Chloride 110 H Carbon Dioxide 19 BUN 10 Creatinine 0.63 L Glucose 100 H Calcium 7.8 L D Urine 02/20/17 Range/Units 04:43 Urine Color Yellow (Yellow) Urine Clarity Clear (Clear) Urine pH 6.0 (5.0-8.0) pH Units Ur Specific [place] 1.027 H (1.010-1.025) Urine Protein 30 H (Neg-Trace) mg/dL Urine Glucose (UA) Normal (Normal) mg/dL - ABG Interpretation ABG results: 02/19/17 17:22 ABG pH 7.32 ABG pCO2 47 H ABG pO2 90 ABG HCO3 24 ABG Total CO2 25.6 ABG O2 Saturation 96 ABG Base Excess -2.2 L - Attending Attestation See event note of same day
[2017-02-20] MEDS: Ipratropium/Albuterol Neb 3 ML IH SCH ×6 (00:09→22:31)
[2017-02-20 04:22] LABS: Basophils % 0.1 %; Hematocrit 38.8 % (37.5-50.1); Immature Granulocytes % 1.8 % (0-4); Lymphocytes # 1.5 K/mcL (0.6-4.6); Lymphocytes % 7.2 %; Mean Corpuscular HGB Conc 31.7 g/dL (31.6-35.5); Mean Corpuscular Hemoglobin 28.5 pg (28.0-33.3); Mean Platelet Volume 9.4 fL (9.4-12.4); Neutrophils # 17.9 K/mcL (1.6-8.9); Platelet Count 297 K/mcL (140-400); Red Blood Count 4.31 M/mcL (4.19-5.50); Segmented Neutrophils % 85.9 %
[2017-02-20 04:23] LABS: Hemoglobin 12.3 g/dL (12.9-16.9)
[2017-02-20 04:26] LABS: Activated Partial Thrombo Time 27.9 Seconds (26.0-36.0)
[2017-02-20 04:28] LABS: INR 1.3; Prothrombin Time 13.7 Seconds (9.4-12.1)
[2017-02-20 04:34] LABS: BUN/Creatinine Ratio 16 (6-26); Blood Urea Nitrogen 10 mg/dL (8-26); Calcium 7.8 mg/dL (8.6-10.8); Carbon Dioxide 19 mEq/L (19-29); Chloride 110 mEq/L (98-109); Chol/HDL Ratio 6.9 (0-4.9); Cholesterol 208 mg/dL (< 200); Glucose 100 mg/dL (70-99); HDL Cholesterol 30 mg/dL (40-59); LDL Cholesterol,Calculated 155 mg/dL (0-99); Magnesium 1.5 mg/dL (1.6-2.6); Osmolality,Calculated 285 (280-300); Potassium 4.4 mEq/L (3.5-4.5); Sodium 138 mEq/L (136-145); Triglycerides 113 mg/dL (< 150); eGFR For African Americans > 60 (> 60); eGFR For Non-African Americans > 60 (> 60)
[2017-02-20 04:49] LABS: Bilirubin,Urine Negative (Negative); Blood,Urine Negative (Negative); Clarity,Urine Clear (Clear); Color,Urine Yellow (Yellow); Glucose,Urine (UA) Normal (Normal); Ketones,Urine Negative (Negative); Leukocyte Esterase,Urine Negative (Negative); Nitrite,Urine Negative (Negative); Protein,Urine 30 mg/dL (Neg-Trace); Specific Gravity,Urine 1.027 (1.010-1.025); Urobilinogen,Urine Normal (Normal)
[2017-02-20 04:52] LABS: Bacteria,Urine None Seen per hpf (None-Few); Hyaline Casts,Urine None Seen per lpf (None-Few); RBC,Urine 0-3 per hpf (0-3); Squamous Epithelial Cell,Urine Moderate per lpf (None-Few); WBC,Urine 0-3 per hpf (0-3)
[2017-02-20] MEDS: *HR* Heparin 5,000 UNIT/ML VIAL SQ SCH ×3 (06:40→20:04)
[2017-02-20] MEDS: 0.9 % Sodium Chloride 1,000 ML IVC SCH (08:20)
[2017-02-20] MEDS: Insulin LISPRO 300 UNITS/3 ML VIAL SQ SCH ×2 (08:25→19:53)
[2017-02-20] MEDS: *HR* Morphine 2 MG/ML SYRINGE IVP PRN ×2 (08:29→15:21)
[2017-02-20] MEDS: Gabapentin 300 MG CAPSULE PO SCH ×3 (08:31→20:03)
[2017-02-20] MEDS: Aspirin Enteric Coated 81 MG Tablet PO SCH (08:31)
[2017-02-20] MEDS: Pantoprazole 40 MG VIAL IVP SCH ×2 (08:31→20:03)
[2017-02-20] MEDS: (Diclofenac Sodium [Voltaren] 1 APPL) TP SCH ×2 (08:32→20:24)
[2017-02-20] MEDS: MethylPREDNISolone 40 MG/ML VIAL IVP SCH (08:32)
[2017-02-20] MEDS: Verapamil ER (24 HR) 180 MG TABLET.ER PO SCH (08:32)
[2017-02-20] MEDS: Loratadine 10 MG TABLET PO SCH (08:32)
[2017-02-20] MEDS: Nicotine 14 MG PATCH.TD24 TD SCH (08:41)
--- NOTE | 2017-02-20 09:45 | Internal Med Progress Note ---
<Antonia Warner - Last Filed: 02/20/17 16:38> Date of Encounter: 02/20/17 Time of Encounter: 09:43 - Assessment and plan (1) Sepsis Current Visit: Yes Status: Acute Assessment and plan: n presentation to the hospital pat, white count of 20.8, chest CT showed pneumonia, so patient met sepsis criteria. Patient started on IV fluids NS @ 125ml/hr and Ceftriaxone 2g and Azithromycin 500mg. Plan: - Continue Ceftriaxone 2g and Azithromycin 500mg started 02/19 - stop IV fluids Qualifiers: Sepsis type: sepsis due to unspecified organism Qualified Code(s): A41.9 - Sepsis, unspecified organism (2) Pneumonia Current Visit: Yes Status: Acute Assessment and plan: Patient's chest CT showed multiple air bronchograms in extensive emphysema and patient was diagnosed with CAP. 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 So patient was switched to ceftriaxone 2 mg and azithromycin 500mg QD. Sputum analysis showed: moderate WBC, Bacteria observed specifically gram positive cocci, gram positive rods, and gram negative rods. Sputum was unable to be analyzed for culture due to inadequate sample. Today patient is having trouble with expelling phlegm therefore will add Mucinex. Plan: - Ceftriaxone 2g and Azithromycine 500mg QD started 02/19 - Add Mucinex Qualifiers: Pneumonia type: due to unspecified organism Laterality: bilateral Lung location: unspecified part of lung Qualified Code(s): J18.9 - Pneumonia, unspecified organism (3) Acute exacerbation of chronic obstructive airways disease Current Visit: Yes Status: Acute Assessment and plan: patient has a history of COPD steroid dependent and is on prednisone 10 mg daily at home. Patient was placed on Solumedrol 40mg IV QD and Theophylline. Continue loratadine from home. Plan: - Solu-Medrol 40 mg IV daily - theophylline 200mg by mouth daily (4) Afib Current Visit: Yes Status: Chronic Assessment and plan: Patient has a history of A. fib and is currently rate controlled in heart is regular rate and rhythm. patient is on aspirin, verapamil, Lipitor at home and will be continued. Patient is on telemetry and will continue to monitor for a fib. Will do a repeat EKG after Mg replaced. Plan: - Aspirin 81mg by mouth daily - Verapamil 180 mg PO daily - lipitor 40 mg daily - repeat EKG after Mg replaced. Qualifiers: Atrial fibrillation type: chronic Qualified Code(s): I48.2 - Chronic atrial fibrillation (5) CAD (coronary artery disease) Current Visit: Yes Status: Chronic Assessment and plan: patient denies chest pain and no elevated troponin. Will continue on home medications. Plan: - Aspirin 81mg by mouth daily - Verapamil 180 mg PO daily - lipitor 40 mg daily Qualifiers: Coronary Disease-Associated Artery/Lesion type: unspecified vessel or lesion type [place] vs. transplanted heart: [place] heart Associated angina: angina presence unspecified Qualified Code(s): I25.10 - Atherosclerotic heart disease of [place] coronary artery without angina pectoris (6) HTN (hypertension) Current Visit: Yes Status: Chronic Assessment and plan: Patient is currently normotensive and well managed on home medications. Qualifiers: Hypertension type: essential hypertension Qualified Code(s): I10 - Essential (primary) hypertension (7) DVT prophylaxis Current Visit: Yes Status: Acute Assessment and plan: heparin (8) Hypomagnesemia Current Visit: Yes Status: Acute Assessment and plan: Mg= 1.5. Will give Mg IVPB 4mg. Continue to [facility] with repeat Mg tomorrow. - Subjective Interval history: patient is a 63-year-old male past medical history of A. fib, CAD, COPD steroid dependent and diabetes presenting to the ED complaining of shortness of breath with fevers and chills admitted for sepsis secondary to pneumonia and COPD exacerbation.today patient states that he feeling better than yesterday. e has been able to breathe better but has still been coughing a lot and has had trouble getting phlegm and it getting stuck. patient denies nausea, vomiting, chest pain. - Constitutional Vitals: Temp Pulse Resp BP Pulse Ox 98.0 F 90 20 122/67 96 02/20/17 07:46 02/20/17 07:46 02/20/17 07:46 02/20/17 07:46 02/20/17 07:46 General appearance: Present: cooperative, A&O X 3, pleasant, severe distress ( Respiratory), answers questions appropriately Exam: Constitutional: Alert, in no acute distress, well nourished, well developed. Head: Normocephalic, atraumatic, normal contour and symmetric, no masses, lesions or scars Heart: Normal, regular rate and rhythm, no murmurs Lungs: + expiratory wheeze, on 3L NC satting at 100%, no labored breathing or increase work or breath, full breath sounds bilaterally, Abdomen: Soft, nondistended, nontender, and no masses palpable, bowel sounds present and normal, no guarding or rigidity. Extremities: No clubbing, cyanosis, or edema, radial pulse +2/4, capillary refill <2sec. Skin: Skin warm and dry, no lesions, no rashes, no jaundice Neurologic: Cranial nerves II through XII grossly intact, no focal deficits, strength within normal limits in all extremities Psych: Cooperative with exam, good eye contact, cognitive function intact, judgment good insight good, speech clear, thought process logical, and goal directed Internal Medicine: Result - Labs CBC & Chem 7: 02/20/17 03:56 02/20/17 03:56 Labs: Short CBC 02/20/17 Range/Units 03:56 WBC 20.8 H (4.3-11.1) K/mcL Hgb 12.3 L D (12.9-16.9) g/dL Hct 38.8 (37.5-50.1) % Plt Count 297 (140-400) K/mcL Neutrophils # 17.9 H (1.6-8.9) K/mcL BMP 02/20/17 03:56 Sodium 138 Potassium 4.4 Chloride 110 H Carbon Dioxide 19 BUN 10 Creatinine 0.63 L Glucose 100 H Calcium 7.8 L D Urine 02/20/17 Range/Units 04:43 Urine Color Yellow (Yellow) Urine Clarity Clear (Clear) Urine pH 6.0 (5.0-8.0) pH Units Ur Specific [place] 1.027 H (1.010-1.025) Urine Protein 30 H (Neg-Trace) mg/dL Urine Glucose (UA) Normal (Normal) mg/dL - ABG Interpretation ABG results: ABG ABG pH 7.32 pH Units (7.32-7.45) 02/19/17 17:22 ABG pCO2 47 mmHg (35-45) H 02/19/17 17:22 ABG pO2 90 mmHg (85-104) 02/19/17 17:22 ABG O2 Saturation 96 % (95-98) 02/19/17 17:22 PT/INR, D-dimer PT 13.7 Seconds (9.4-12.1) H 02/20/17 03:56 D-Dimer 1183 ng/mLFEU (0-500) H 02/19/17 14:42 Consult Discharge Plan - Plan [facility]errals: [facility]Primary Care Provider[facility] - <Dash Hodge T - Last Filed: 02/20/17 16:51> Date of Encounter: 02/20/17 - Constitutional Vitals: Temp Pulse Resp BP Pulse Ox 98.4 F 82 18 110/65 98 02/20/17 16:03 02/20/17 16:03 02/20/17 16:03 02/20/17 16:03 02/20/17 16:03 Internal Medicine: Result - Labs CBC & Chem 7: 02/20/17 03:56 02/20/17 03:56 Labs: Short CBC 02/20/17 Range/Units 03:56 WBC 20.8 H (4.3-11.1) K/mcL Hgb 12.3 L D (12.9-16.9) g/dL Hct 38.8 (37.5-50.1) % Plt Count 297 (140-400) K/mcL Neutrophils # 17.9 H (1.6-8.9) K/mcL BMP 02/20/17 03:56 Sodium 138 Potassium 4.4 Chloride 110 H Carbon Dioxide 19 BUN 10 Creatinine 0.63 L Glucose 100 H Calcium 7.8 L D Urine 02/20/17 Range/Units 04:43 Urine Color Yellow (Yellow) Urine Clarity Clear (Clear) Urine pH 6.0 (5.0-8.0) pH Units Ur Specific [place] 1.027 H (1.010-1.025) Urine Protein 30 H (Neg-Trace) mg/dL Urine Glucose (UA) Normal (Normal) mg/dL - ABG Interpretation ABG results: ABG ABG pH 7.32 pH Units (7.32-7.45) 02/19/17 17:22 ABG pCO2 47 mmHg (35-45) H 02/19/17 17:22 ABG pO2 90 mmHg (85-104) 02/19/17 17:22 ABG O2 Saturation 96 % (95-98) 02/19/17 17:22 PT/INR, D-dimer PT 13.7 Seconds (9.4-12.1) H 02/20/17 03:56 D-Dimer 1183 ng/mLFEU (0-500) H 02/19/17 14:42 - Attending Attestation I have independently seen and examined this patient on 02/20/17, reviewed the EMR and discussed plan of care with the patient and resident physician 66 M with medical history of emphysema, steroid dependent COPD on home oxygen. He has additional medical history of atrial fibrillation, coronary artery disease, fibromyalgia, GERD tobacco abuse. He smokes 1-2 PPD Admitted and being managed for presumed sepsis secondary to community acquired pneumonia, acute on chronic hypoxic resp failure secondary to COPD exacerbation Seen at bedside, no new complains, still coughing Physical exam: VSS< on 2L O2 by NC, sitting up in bed, having breakfast, speaks full sentences, Moist oral mucosa, not cyanotic, He is not cyanotic. He has bilateral expiratory wheezing and rhonchi on the lung bases. Heart sounds S1- S2 only, no murmurs gallops or rubs. Abdomen is soft and non-tender no palpable organ enlargement. Extremities with no pedal edema. Labs and imaging reviewed: Leukocytosis, HB stable, chem,WNL, Hypomagnesemia. Legionella and Strep Ag negative, Sputum culture: not contributory. Assessment and plan. Presumed sepsis/COPDE/Acute on chronic resp failure/COPDE/Steroid-dependence/ Leukocytosis. Continue current care Replace magnessium Rest of details as in resident physicians documentation
[2017-02-20] MEDS ORDERED: Magnesium Sulfate 2 GM in D5% in Water 100 ML IVPB ONE ×2 (11:43→13:15)
[2017-02-20] MEDS: Azithromycin 500 MG in D5% in Water 250 ML IVPB SCH (15:48)
[2017-02-20] MEDS: *HR* HYDROcodone/Acet 5/325 mg TABLET PO PRN (22:44)
[2017-02-21] MEDS: Temazepam 15 MG CAPSULE PO PRN (00:38)
[2017-02-21] MEDS: Ipratropium/Albuterol Neb 3 ML IH SCH ×7 (01:02→23:30)
[2017-02-21] MEDS: *HR* Morphine 2 MG/ML SYRINGE IVP PRN ×3 (01:05→09:35)
[2017-02-21] MEDS: Insulin LISPRO 300 UNITS/3 ML VIAL SQ SCH ×3 (01:09→18:16)
[2017-02-21] MEDS: *HR* HYDROcodone/Acet 5/325 mg TABLET PO PRN ×2 (03:17→07:48)
[2017-02-21 03:47] LABS: Basophils % 0.2 %; Eosinophils % 0.2 %; Hematocrit 36.6 % (37.5-50.1); Hemoglobin 11.4 g/dL (12.9-16.9); Lymphocytes # 2.2 K/mcL (0.6-4.6); Lymphocytes % 11.4 %; Mean Corpuscular HGB Conc 31.1 g/dL (31.6-35.5); Mean Corpuscular Hemoglobin 27.9 pg (28.0-33.3); Mean Corpuscular Volume 89.7 fL (83.0-100.0); Mean Platelet Volume 9.1 fL (9.4-12.4); Monocytes # 1.2 K/mcL (0.0-1.3); Monocytes % 6.4 %; Neutrophils # 15.4 K/mcL (1.6-8.9); Platelet Count 316 K/mcL (140-400); Red Blood Count 4.08 M/mcL (4.19-5.50); Segmented Neutrophils % 80.8 %
[2017-02-21 04:05] LABS: BUN/Creatinine Ratio 16 (6-26); Blood Urea Nitrogen 11 mg/dL (8-26); Calcium 8.2 mg/dL (8.6-10.8); Carbon Dioxide 25 mEq/L (19-29); Chloride 107 mEq/L (98-109); Glucose 96 mg/dL (70-99); Magnesium 2.1 mg/dL (1.6-2.6); Osmolality,Calculated 285 (280-300); Potassium 3.7 mEq/L (3.5-4.5); Sodium 138 mEq/L (136-145); eGFR For African Americans > 60 (> 60); eGFR For Non-African Americans > 60 (> 60)
[2017-02-21] MEDS: *HR* Heparin 5,000 UNIT/ML VIAL SQ SCH ×3 (04:39→21:05)
[2017-02-21] MEDS: Nicotine 14 MG PATCH.TD24 TD SCH (07:46)
[2017-02-21] MEDS: (Diclofenac Sodium [Voltaren] 1 APPL) TP SCH (07:46)
[2017-02-21] MEDS: Loratadine 10 MG TABLET PO SCH (07:47)
[2017-02-21] MEDS: Aspirin Enteric Coated 81 MG Tablet PO SCH (07:47)
[2017-02-21] MEDS: Verapamil ER (24 HR) 180 MG TABLET.ER PO SCH (07:48)
[2017-02-21] MEDS: Gabapentin 300 MG CAPSULE PO SCH ×3 (07:48→21:05)
[2017-02-21] MEDS: Pantoprazole 40 MG VIAL IVP SCH ×2 (07:49→21:04)
[2017-02-21] MEDS: MethylPREDNISolone 40 MG/ML VIAL IVP SCH (07:49)
--- NOTE | 2017-02-21 08:17 | Electrocardiograph Report ---
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
--- NOTE | 2017-02-21 08:17 | Electrocardiograph Report ---
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
--- NOTE | 2017-02-21 10:04 | Internal Med Progress Note ---
Date of Encounter: 02/21/17 Time of Encounter: 09:30 - Assessment and plan (1) Sepsis Current Visit: Yes Status: Acute Qualifiers: Sepsis type: sepsis due to unspecified organism Qualified Code(s): A41.9 - Sepsis, unspecified organism (2) Pneumonia Current Visit: Yes Status: Acute Qualifiers: Pneumonia type: due to unspecified organism Laterality: bilateral Lung location: unspecified part of lung Qualified Code(s): J18.9 - Pneumonia, unspecified organism (3) Acute exacerbation of chronic obstructive airways disease Current Visit: Yes Status: Acute (4) Afib Current Visit: Yes Status: Chronic Qualifiers: Atrial fibrillation type: chronic Qualified Code(s): I48.2 - Chronic atrial fibrillation (5) CAD (coronary artery disease) Current Visit: Yes Status: Chronic Qualifiers: Coronary Disease-Associated Artery/Lesion type: unspecified vessel or lesion type [place] vs. transplanted heart: [place] heart Associated angina: angina presence unspecified Qualified Code(s): I25.10 - Atherosclerotic heart disease of [place] coronary artery without angina pectoris (6) HTN (hypertension) Current Visit: Yes Status: Chronic Qualifiers: Hypertension type: essential hypertension Qualified Code(s): I10 - Essential (primary) hypertension (7) DVT prophylaxis Current Visit: Yes Status: Acute (8) Hypomagnesemia Current Visit: Yes Status: Acute - Subjective Interval history: patient is a 63-year-old male past medical history of A. fib, CAD, COPD steroid dependent and diabetes presenting to the ED complaining of shortness of breath with fevers and chills admitted for sepsis secondary to pneumonia and COPD exacerbation.Today patient states that he feeling better than yesterday. Patient states that he is bruising himself on the mobile toilet and has requested to go to the normal bathroom. He denies feeling dizzy or light headed , or weak when he gets up. PT has not evaluated today. Patient denies nausea, vomiting, chest pain. - Constitutional Vitals: Temp Pulse Resp BP Pulse Ox 98.0 F 99 16 144/113 95 02/21/17 07:10 02/21/17 08:09 02/21/17 09:19 02/21/17 07:54 02/21/17 08:02 General appearance: Present: cooperative, A&O X 3, pleasant, severe distress ( Respiratory), answers questions appropriately Exam: Constitutional: Alert, in no acute distress, well nourished, well developed. Head: Normocephalic, atraumatic, normal contour and symmetric, no masses, lesions or scars Heart: Normal, regular rate and rhythm, no murmurs Lungs: end expiratory wheezing bilaterally diffusely, decrease breath sounds at apex Abdomen: Soft, nondistended, nontender, and no masses palpable, bowel sounds present and normal, no guarding or rigidity. Extremities: multiple bruises on arms bilaterally, No clubbing, cyanosis, or edema, radial pulse +2/4, capillary refill <2sec. Skin: Skin warm and dry, no lesions, no rashes, no jaundice Neurologic: Cranial nerves II through XII grossly intact, no focal deficits, strength within normal limits in all extremities Psych: Cooperative with exam, good eye contact, cognitive function intact, judgment good insight good, speech clear, thought process logical, and goal directed Internal Medicine: Result - Labs CBC & Chem 7: 02/21/17 03:09 02/21/17 03:09 Labs: Short CBC 02/21/17 Range/Units 03:09 WBC 19.1 H (4.3-11.1) K/mcL Hgb 11.4 L (12.9-16.9) g/dL Hct 36.6 L (37.5-50.1) % Plt Count 316 (140-400) K/mcL Neutrophils # 15.4 H (1.6-8.9) K/mcL BMP 02/21/17 03:09 Sodium 138 Potassium 3.7 Chloride 107 Carbon Dioxide 25 BUN 11 Creatinine 0.69 L Glucose 96 Calcium 8.2 L - ABG Interpretation ABG results: ABG ABG pH 7.32 pH Units (7.32-7.45) 02/19/17 17:22 ABG pCO2 47 mmHg (35-45) H 02/19/17 17:22 ABG pO2 90 mmHg (85-104) 02/19/17 17:22 ABG O2 Saturation 96 % (95-98) 02/19/17 17:22 PT/INR, D-dimer PT 13.7 Seconds (9.4-12.1) H 02/20/17 03:56 D-Dimer 1183 ng/mLFEU (0-500) H 02/19/17 14:42 Consult Discharge Plan - Plan [facility]errals: [facility] [Primary Care Provider] -
[2017-02-21] MEDS: *HR* OxyCODONE/APAP 10/325 TABLET PO PRN ×2 (12:11→18:14)
--- NOTE | 2017-02-21 13:35 | Internal Med Progress Note ---
<Antonia Warner - Last Filed: 02/21/17 15:06> Date of Encounter: 02/21/17 Time of Encounter: 09:15 - Assessment and plan (1) Sepsis Current Visit: Yes Status: Acute Assessment and plan: n presentation to the hospital pat, white count of 20.8, chest CT showed pneumonia, so patient met sepsis criteria. Patient started on IV fluids NS @ 125ml/hr and Ceftriaxone 2g and Azithromycin 500mg. Fluids stopped 02/20. Plan: - Continue Ceftriaxone 2g and Azithromycin 500mg started 02/19 Qualifiers: Sepsis type: sepsis due to unspecified organism Qualified Code(s): A41.9 - Sepsis, unspecified organism (2) Pneumonia Current Visit: Yes Status: Acute Assessment and plan: Patient's chest CT showed multiple air bronchograms in extensive emphysema and patient was diagnosed with CAP. 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 So patient was switched to ceftriaxone 2 mg and azithromycin 500mg QD. Sputum analysis showed: moderate WBC, Bacteria observed specifically gram positive cocci, gram positive rods, and gram negative rods. Sputum was unable to be analyzed for culture due to inadequate sample. Today patient is having trouble with expelling phlegm therefore will added Mucinex. Plan: - Ceftriaxone 2g and Azithromycine 500mg QD started 02/19 - Mucinex Qualifiers: Pneumonia type: due to unspecified organism Laterality: bilateral Lung location: unspecified part of lung Qualified Code(s): J18.9 - Pneumonia, unspecified organism (3) Acute exacerbation of chronic obstructive airways disease Current Visit: Yes Status: Acute Assessment and plan: patient has a history of COPD steroid dependent and is on prednisone 10 mg daily at home. Patient was placed on Solumedrol 40mg IV QD and Theophylline. Continue loratadine from home. Switch and begin to wean steroids and switch to PO on 02/22. Plan: - switched from IV to PO and wean : Prednisone 60 mg PO daily - theophylline 200mg by mouth daily (4) Afib Current Visit: Yes Status: Chronic Assessment and plan: Patient has a history of A. fib and is currently rate controlled in heart is regular rate and rhythm. patient is on aspirin, verapamil, Lipitor at home and will be continued. Patient is on telemetry and will continue to monitor for a fib. Patient has been rate controlled and stable. Patient is able to be transfered to the Med surg floor 02/21. Plan: - Aspirin 81mg by mouth daily - Verapamil 180 mg PO daily - lipitor 40 mg daily - . Qualifiers: Atrial fibrillation type: chronic Qualified Code(s): I48.2 - Chronic atrial fibrillation (5) CAD (coronary artery disease) Current Visit: Yes Status: Chronic Assessment and plan: patient denies chest pain and no elevated troponin. Will continue on home medications. Plan: - Aspirin 81mg by mouth daily - Verapamil 180 mg PO daily - lipitor 40 mg daily Qualifiers: Coronary Disease-Associated Artery/Lesion type: unspecified vessel or lesion type [place] vs. transplanted heart: [place] heart Associated angina: angina presence unspecified Qualified Code(s): I25.10 - Atherosclerotic heart disease of [place] coronary artery without angina pectoris (6) HTN (hypertension) Current Visit: Yes Status: Chronic Assessment and plan: Patient's BP has been rising but he chronic pain was elevating. Home pain medication of Percocet 10-325 given 5 times a day was added. Will continue to monitor. Qualifiers: Hypertension type: essential hypertension Qualified Code(s): I10 - Essential (primary) hypertension (7) DVT prophylaxis Current Visit: Yes Status: Acute Assessment and plan: heparin (8) Hypomagnesemia Current Visit: Yes Status: Acute Assessment and plan: Mg= 2.1 Corrected from yesterday. Will redraw tomorrow. (9) Elevated d-dimer Current Visit: Yes Status: Acute Assessment and plan: Elevated d-dimer most likely 2/2 sepsis/Afib, breathing improving each day therefore unlikely PE. - Subjective Interval history: patient is a 63-year-old male past medical history of A. fib, CAD, COPD steroid dependent and diabetes presenting to the ED complaining of shortness of breath with fevers and chills admitted for sepsis secondary to pneumonia and COPD exacerbation. Today patient states that he feeling better than yesterday. He denies dizziness or lightheadedness when getting up and moving around. PT will see him later today as they stopped by earlier and he was eating. patient denies nausea, vomiting, chest pain. - Constitutional Vitals: Temp Pulse Resp BP Pulse Ox 97.7 F 88 24 119/66 90 02/21/17 11:23 02/21/17 11:23 02/21/17 11:23 02/21/17 11:23 02/21/17 11:23 General appearance: Present: cooperative, A&O X 3, pleasant, severe distress ( Respiratory), answers questions appropriately Exam: Constitutional: Alert, in no acute distress, well nourished, well developed. Head: Normocephalic, atraumatic, normal contour and symmetric, no masses, lesions or scars Heart: Normal, regular rate and rhythm, no murmurs Lungs: + expiratory wheeze, on 2L NC satting 94%, no labored breathing or increase work or breath, full breath sounds bilaterally, Abdomen: Soft, nondistended, nontender, and no masses palpable, bowel sounds present and normal, no guarding or rigidity. Extremities: No clubbing, cyanosis, or edema, radial pulse +2/4, capillary refill <2sec. Skin: Skin warm and dry, no lesions, no rashes, no jaundice Neurologic: Cranial nerves II through XII grossly intact, no focal deficits, strength within normal limits in all extremities Psych: Cooperative with exam, good eye contact, cognitive function intact, judgment good insight good, speech clear, thought process logical, and goal directed Internal Medicine: Result - Labs CBC & Chem 7: 02/21/17 03:09 02/21/17 03:09 Labs: Short CBC 02/21/17 Range/Units 03:09 WBC 19.1 H (4.3-11.1) K/mcL Hgb 11.4 L (12.9-16.9) g/dL Hct 36.6 L (37.5-50.1) % Plt Count 316 (140-400) K/mcL Neutrophils # 15.4 H (1.6-8.9) K/mcL BMP 02/21/17 03:09 Sodium 138 Potassium 3.7 Chloride 107 Carbon Dioxide 25 BUN 11 Creatinine 0.69 L Glucose 96 Calcium 8.2 L - ABG Interpretation ABG results: ABG ABG pH 7.32 pH Units (7.32-7.45) 02/19/17 17:22 ABG pCO2 47 mmHg (35-45) H 02/19/17 17:22 ABG pO2 90 mmHg (85-104) 02/19/17 17:22 ABG O2 Saturation 96 % (95-98) 02/19/17 17:22 PT/INR, D-dimer PT 13.7 Seconds (9.4-12.1) H 02/20/17 03:56 D-Dimer 1183 ng/mLFEU (0-500) H 02/19/17 14:42 Consult Discharge Plan - Plan Referrals: Roz Thomas MD [Partnered Physician] - (CARDIOLOGY WILL CALL THE PATIENT AT HOME WITH A FOLLOW UP APPOINTMENT) [facility],PCP [Primary Care Provider] - 03/03/17 9:00 am <Dash Hodge - Last Filed: 02/21/17 15:52> Date of Encounter: 02/21/17 - Constitutional Vitals: Temp Pulse Resp BP Pulse Ox 97.7 F 88 24 119/66 90 02/21/17 11:23 02/21/17 11:23 02/21/17 11:23 02/21/17 11:23 02/21/17 11:23 Internal Medicine: Result - Labs CBC & Chem 7: 02/21/17 03:09 02/21/17 03:09 Labs: Short CBC 02/21/17 Range/Units 03:09 WBC 19.1 H (4.3-11.1) K/mcL Hgb 11.4 L (12.9-16.9) g/dL Hct 36.6 L (37.5-50.1) % Plt Count 316 (140-400) K/mcL Neutrophils # 15.4 H (1.6-8.9) K/mcL BMP 02/21/17 03:09 Sodium 138 Potassium 3.7 Chloride 107 Carbon Dioxide 25 BUN 11 Creatinine 0.69 L Glucose 96 Calcium 8.2 L - ABG Interpretation ABG results: ABG ABG pH 7.32 pH Units (7.32-7.45) 02/19/17 17:22 ABG pCO2 47 mmHg (35-45) H 02/19/17 17:22 ABG pO2 90 mmHg (85-104) 02/19/17 17:22 ABG O2 Saturation 96 % (95-98) 02/19/17 17:22 PT/INR, D-dimer PT 13.7 Seconds (9.4-12.1) H 02/20/17 03:56 D-Dimer 1183 ng/mLFEU (0-500) H 02/19/17 14:42 - Attending Attestation I have independently seen and examined this patient on 03/05, reviewed the EMR and discussed plan of care with the patient and resident physician 66 M with medical history of emphysema, steroid dependent COPD on home oxygen. He has additional medical history of atrial fibrillation, coronary artery disease, fibromyalgia, GERD tobacco abuse. He smokes 1-2 PPD Admitted and being managed for presumed sepsis secondary to community acquired pneumonia, acute on chronic hypoxic resp failure secondary to COPD exacerbation Seen at bedside, no new complains, he reports improvement, a time of review, he was comfortable at rest and saturating 89-90% on room air Physical exam: VSS< on 2L O2 by NC, sitting up in bed, having breakfast, speaks full sentences, Moist oral mucosa, not cyanotic, He is not cyanotic. He has few expiratory wheezing and rhonchi is very much improved. . Heart sounds S1- S2 only, no murmurs gallops or rubs. Abdomen is soft and non-tender no palpable organ enlargement. Extremities with no pedal edema. Labs and imaging reviewed: Leukocytosis improving, HB stable, chem,WNL, Hypomagnesemia. Legionella and Strep Ag negative, Sputum culture: not contributory. Assessment and plan. Presumed sepsis/COPDE/Acute on chronic resp failure/COPDE/Steroid-dependence/ Leukocytosis. Continue current care Uncontrolled BP possibly due to pain, resume patient's own pain meds Change solmedrol tp prednisone po a.m Stable to transfer out of Rest of details as in resident physicians documentation
[2017-02-21] MEDS: Azithromycin 500 MG in D5% in Water 250 ML IVPB SCH (15:32)
[2017-02-21] MEDS: Methyl Salicylate/Menthol 28 GM TUBE TP SCH (21:07)
[2017-02-22] MEDS: Insulin LISPRO 300 UNITS/3 ML VIAL SQ SCH ×2 (00:32→11:39)
[2017-02-22] MEDS: Temazepam 15 MG CAPSULE PO PRN (01:12)
[2017-02-22] MEDS: *HR* OxyCODONE/APAP 10/325 TABLET PO PRN ×2 (01:12→08:03)
[2017-02-22] MEDS: Ipratropium/Albuterol Neb 3 ML IH SCH ×3 (03:49→11:25)
[2017-02-22] MEDS: *HR* Heparin 5,000 UNIT/ML VIAL SQ SCH (05:51)
[2017-02-22 06:48] LABS: Basophils % 0.3 %; Eosinophils # 0.1 K/mcL (0.0-0.6); Eosinophils % 0.6 %; Hematocrit 39.1 % (37.5-50.1); Hemoglobin 12.5 g/dL (12.9-16.9); Immature Granulocytes % 0.8 % (0-4); Lymphocytes # 2.7 K/mcL (0.6-4.6); Lymphocytes % 17.2 %; Mean Corpuscular Hemoglobin 29.2 pg (28.0-33.3); Mean Corpuscular Volume 91.4 fL (83.0-100.0); Mean Platelet Volume 9.1 fL (9.4-12.4); Monocytes # 1.3 K/mcL (0.0-1.3); Monocytes % 8.4 %; Neutrophils # 11.4 K/mcL (1.6-8.9); Platelet Count 308 K/mcL (140-400); Red Blood Count 4.28 M/mcL (4.19-5.50); Red Cell Distribution Width 14.2 % (11.5-14.5); Segmented Neutrophils % 72.7 %
[2017-02-22 07:02] LABS: BUN/Creatinine Ratio 10 (6-26); Blood Urea Nitrogen 7 mg/dL (8-26); Calcium 8.8 mg/dL (8.6-10.8); Carbon Dioxide 31 mEq/L (19-29); Chloride 104 mEq/L (98-109); Glucose 77 mg/dL (70-99); Magnesium 1.8 mg/dL (1.6-2.6); Osmolality,Calculated 291 (280-300); Potassium 4.1 mEq/L (3.5-4.5); Sodium 142 mEq/L (136-145); eGFR For African Americans > 60 (> 60); eGFR For Non-African Americans > 60 (> 60)
[2017-02-22] MEDS: Gabapentin 300 MG CAPSULE PO SCH (08:00)
[2017-02-22] MEDS: Pantoprazole 40 MG VIAL IVP SCH (08:00)
[2017-02-22] MEDS: Loratadine 10 MG TABLET PO SCH (08:00)
[2017-02-22] MEDS: Verapamil ER (24 HR) 180 MG TABLET.ER PO SCH (08:00)
[2017-02-22] MEDS: Aspirin Enteric Coated 81 MG Tablet PO SCH (08:00)
[2017-02-22] MEDS: Nicotine 14 MG PATCH.TD24 TD SCH (08:08)
[2017-02-22] MEDS: Methyl Salicylate/Menthol 28 GM TUBE TP SCH (08:09)
[2017-02-22] MEDS ORDERED: predniSONE 20 MG TABLET PO SCH (09:00)
--- NOTE | 2017-02-22 09:45 | Discharge Summary ---
<Dash Hodge T - Last Filed: 02/22/17 13:38> Date of Encounter: 02/22/17 - Discharge Medications Prescriptions: Azithromycin [Zithromax] 500 mg PO DAILY #5 tablet Cefdinir [Omnicef] 300 mg PO BID #9 capsule predniSONE [PredniSONE] 20 mg PO DAILY #10 tab Home Medications: Albuterol Neb [Proventil Neb] 2.5 mg IH TID 02/19/17 [History] Albuterol Sulfate [Albuterol Inhaler] 2 puff IH Q6H PRN 02/19/17 [History] Alendronate Sodium [Fosamax] 70 mg PO WE 02/19/17 [History] Alprostadil [[place]] 500 mcg UR AD PRN 02/19/17 [History] Atorvastatin [Lipitor] 40 mg PO HS 02/19/17 [History] Budesonide/Formoterol 160/4.5 [Symbicort 160/4.5] 2 puff IH BIDR 02/19/17 [ History] Cetirizine HCl [All Day Allergy] 10 mg PO DAILY 02/19/17 [History] Diclofenac Sodium [Voltaren] 1 appl TP BID 02/19/17 [History] Gabapentin [Neurontin] 900 mg PO TID 02/19/17 [History] Melatonin 10 mg PO HS 02/19/17 [History] Multivitamin [Multi-Day Vitamins] 1 each PO DAILY 02/19/17 [History] Nicotine Patch [Nicoderm] 7 mg TD DAILY 02/19/17 [History] Omeprazole [PriLOSEC] 20 mg PO DAILY 02/19/17 [History] Oxycodone HCl/Acetaminophen [Percocet 10-325 mg Tablet] 1 each PO 5XD PRN [History] Potassium Chloride [K-Tab ER] 10 meq PO DAILY 02/19/17 [History] Sertraline [Zoloft] 100 mg PO DAILY 02/19/17 [History] Theophylline Anhydrous [[place]-24] 200 mg PO DAILY 02/19/17 [History] Verapamil HCl [Verapamil ER] 180 mg PO DAILY 02/19/17 [History] Zolpidem [Ambien] 10 mg PO HS 02/19/17 [History] Azithromycin [Zithromax] 500 mg PO DAILY #5 tablet 02/22/17 [Rx] Cefdinir [Omnicef] 300 mg PO BID #9 capsule 02/22/17 [Rx] predniSONE [PredniSONE] 10 mg PO DAILY #0 02/22/17 [Rx] predniSONE [PredniSONE] 20 mg PO DAILY #10 tab 02/22/17 [Rx] Allergies/Adverse Reactions: 3 Allergy/AdvReac Type Severity Reaction Status Date / Time tiotropium Allergy Rash Verified 03/15/16 22:23 [From Spiriva with HandiHaler] bee stings AdvReac Anaphylaxis Uncoded 02/19/17 14:16 Procedures/tests Complete & Pending: Procedures Performed prior 72 hours Category Date Time Status ECG 12 lead ECG [ECG] Routine Y 02/21/17 01:01 Completed Date of admission: 02/19/17 16:03 [facility] care physician: [facility] - Patient Status Disposition: Home, Self-Care Condition: Good - Discharge Instructions Instructions: Prednisone (By mouth), Azithromycin (By mouth), Chronic Obstructive Pulmonary Disease (DC), Community-acquired Pneumonia (DC), How to Stop Smoking, [employer] (GEN) Follow Up With: Roz Thomas MD [Partnered Physician] - (CARDIOLOGY WILL CALL THE PATIENT AT HOME WITH A FOLLOW UP APPOINTMENT) [place],PCP [Primary Care Provider] - 03/03/17 9:00 am Additional Instructions: Follow-up with your primary care physician in 1-2 weeks. Return to the ED if symptoms worsen or new symptoms arise. Hospital course: Mr. Bai is a 66 year old male - Time Spent with Patient Total time spent providing and/or coordinating discharge services: Greater than 30 minutes - Constitutional Vitals: Temp Pulse Resp BP Pulse Ox 97.6 F 91 18 106/80 96 02/22/17 11:15 02/22/17 11:15 02/22/17 11:25 02/22/17 11:15 02/22/17 11:25 - Attending Attestation I have independently seen and examined this patient on 02/22/17, reviewed the EMR and discussed plan of care with the patient and resident physician 66 M with medical history of emphysema, steroid dependent COPD on home oxygen. He has additional medical history of atrial fibrillation, coronary artery disease, fibromyalgia, GERD tobacco abuse. He smokes 1-2 PPD He was managed for sepsis secondary to community acquired pneumonia, acute on chronic hypoxic resp failure secondary to COPD exacerbation Today he has made remarkable improvement, he is able to sit out of bed and saturating 94% on room air. he denies new complains Physical exam: VSS, sitting out of bed in chair, chest is CTAB, no wheezes, HS S1, S2 only, no m/g/r, Abdomen is soft and not tender, extremities with no edema Labs and imaging reviewed: Leukocytosis improving, 15.6-21 on admission, HB stable, chem,WNL, Hypomagnesemia. Legionella and Strep Ag negative, Sputum culture no growth Assessment and plan. Sepsis secondary to Pneumonia, Acute on chronic hypoxic respiratory failure, COPDE-improved Stable for discharge home on prednisone taper, antibiotics. Continue home medications Follow up with PCP and Pulmonology Home health per OT Rest of details as in resident physicians documentation <TimmyAntonia - Last Filed: 02/22/17 19:01> Date of Encounter: 02/22/17 Time of Encounter: 10:30 - Discharge Diagnosis (1) Sepsis Priority: Primary Status: Acute Qualifiers: Sepsis type: sepsis due to unspecified organism Qualified Code(s): A41.9 - Sepsis, unspecified organism (2) Pneumonia Priority: Primary Status: Acute Qualifiers: Pneumonia type: due to unspecified organism Laterality: bilateral Lung location: unspecified part of lung Qualified Code(s): J18.9 - Pneumonia, unspecified organism (3) Acute exacerbation of chronic obstructive airways disease Priority: Primary Status: Acute (4) Afib Priority: Primary Status: Acute Qualifiers: Atrial fibrillation type: chronic Qualified Code(s): I48.2 - Chronic atrial fibrillation (5) CAD (coronary artery disease) Priority: Secondary Status: Chronic Qualifiers: Coronary Disease-Associated Artery/Lesion type: unspecified vessel or lesion type [place] vs. transplanted heart: [place] heart Associated angina: angina presence unspecified Qualified Code(s): I25.10 - Atherosclerotic heart disease of [place] coronary artery without angina pectoris (6) HTN (hypertension) Priority: Secondary Status: Chronic Qualifiers: Hypertension type: essential hypertension Qualified Code(s): I10 - Essential (primary) hypertension (7) DVT prophylaxis Priority: Primary Status: Acute (8) Hypomagnesemia Priority: Primary Status: Acute (9) Elevated d-dimer Priority: Primary Status: Acute Procedures/tests Complete & Pending: Procedures Performed prior 72 hours Category Date Time Status ECG 12 lead ECG [ECG] Routine Y 02/21/17 01:01 Completed Date of admission: 02/19/17 16:03 Primary care physician: PCP [facility] - Patient Status Functional capacity at discharge: independent ambulation Overall status at discharge: patient is progressing back to baseline - Diet and Activity Activity: as per physical therapy Diet: other (cardiac diet) Hospital course: Mr. Bai is a 66 year old male past medical history of A. fib, CAD, COPD steroid dependent and diabetes presenting to the ED complaining of shortness of breath with fevers and chills admitted for COPD exacerbation and sepsis secondary to pneumonia. Patient was found to be tachycardic in the ED but patient was rate controlled with Verapamil 1.25mg. Patient admitted on continuous telemetry with no further HR problems throughout hospital stay. Patient place on Rocephin and Azithromycin (started 02/19) and Solumedrol 40mg IV daily. BC were negative. Patient progressed from 3L NC at initial admission to RA during the day and 2L at night which is his baseline. Patient did not require home oxygen. OT wanted a safety evaluation at home, shower chair, and bar handles for the toilet of which referal and prescriptions were written. Patient given Omnicef and Azithromycin for 5 days and Prednisone taper starting at 40mg to wean every 3 days back down to his home dose of Predinsone 10mg. Patient instructed to f/u with his PCP in 1-2 weeks. - Time Spent with Patient Total time spent providing and/or coordinating discharge services: - Constitutional Vitals: Temp Pulse Resp BP Pulse Ox 98.0 F 87 17 164/97 94 02/22/17 06:55 02/22/17 08:18 02/22/17 06:55 02/22/17 06:55 02/22/17 06:55 General appearance: Present: cooperative, A&O X 3, pleasant, answers questions appropriately Exam: Constitutional: Alert, in no acute distress, well nourished, well developed. Head: Normocephalic, atraumatic, normal contour and symmetric, no masses, lesions or scars Heart: Normal, regular rate and rhythm, no murmurs Lungs: + expiratory wheeze less than previous days, on RA satting at 90% while excerting himself, no labored breathing or increase work or breath, full breath sounds bilaterally, Abdomen: Soft, nondistended, nontender, and no masses palpable, bowel sounds present and normal, no guarding or rigidity. Extremities: multiple bruises on arms, No clubbing, cyanosis, or edema, radial pulse +2/4, capillary refill <2sec. Skin: Skin warm and dry, no lesions, no rashes, no jaundice Neurologic: Cranial nerves II through XII grossly intact, no focal deficits, strength within normal limits in all extremities Psych: Cooperative with exam, good eye contact, cognitive function intact, judgment good insight good, speech clear, thought process logical, and goal directed
--- NOTE | 2017-02-22 09:49 | Physician Discharge Referral ---
Home Health/Hosp Referral Info Transfer to: Home Health Attending Provider: Dr. Hodge Provider in Charge Post Discharge: PCP - Diagnosis (1) Sepsis Priority: Primary Status: Acute (2) Pneumonia Priority: Primary Status: Acute (3) Acute exacerbation of chronic obstructive airways disease Priority: Primary Status: Acute (4) Afib Priority: Primary Status: Acute (5) CAD (coronary artery disease) Priority: Secondary Status: Chronic (6) HTN (hypertension) Priority: Secondary Status: Chronic (7) DVT prophylaxis Priority: Secondary Status: Acute (8) Hypomagnesemia Priority: Primary Status: Acute (9) Elevated d-dimer Priority: Primary Status: Acute - Respiratory Orders Smoking Cessation: Smoking cessation has been advised. For more information, call the [facility] Tobacco Quit Line at 5-946-MUIW-NOW. - Activity Activity Orders: Up ad regan (Need shower chair and grab bars at toilet) - Services Needed Following services are medically necessary services: Occupational Therapy Home Care Orders: Need shower chair and grab bars to toilet. Patient does state that he renting, so he might not be able to install grab bars. - Transfer Medications Prescriptions: Cefdinir [Omnicef] 300 mg PO BID #9 capsule Home Medications: Albuterol Neb [Proventil Neb] 2.5 mg IH TID 02/19/17 [History] Albuterol Sulfate [Albuterol Inhaler] 2 puff IH Q6H PRN 02/19/17 [History] Alendronate Sodium [Fosamax] 70 mg PO WE 02/19/17 [History] Alprostadil [[place]] 500 mcg UR AD PRN 02/19/17 [History] Atorvastatin [Lipitor] 40 mg PO HS 02/19/17 [History] Budesonide/Formoterol 160/4.5 [Symbicort 160/4.5] 2 puff IH BIDR 02/19/17 [ History] Cetirizine HCl [All Day Allergy] 10 mg PO DAILY 02/19/17 [History] Diclofenac Sodium [Voltaren] 1 appl TP BID 02/19/17 [History] Gabapentin [Neurontin] 900 mg PO TID 02/19/17 [History] Melatonin 10 mg PO HS 02/19/17 [History] Multivitamin [Multi-Day Vitamins] 1 each PO DAILY 02/19/17 [History] Nicotine Patch [Nicoderm] 7 mg TD DAILY 02/19/17 [History] Omeprazole [PriLOSEC] 20 mg PO DAILY 02/19/17 [History] Oxycodone HCl/Acetaminophen [Percocet 10-325 mg Tablet] 1 each PO 5XD PRN [History] Potassium Chloride [K-Tab ER] 10 meq PO DAILY 02/19/17 [History] Sertraline [Zoloft] 100 mg PO DAILY 02/19/17 [History] Theophylline Anhydrous [Oliver-24] 200 mg PO DAILY 02/19/17 [History] Verapamil HCl [Verapamil ER] 180 mg PO DAILY 02/19/17 [History] Zolpidem [Ambien] 10 mg PO HS 02/19/17 [History] predniSONE [PredniSONE] 10 mg PO DAILY 02/19/17 [History] Cefdinir [Omnicef] 300 mg PO BID #9 capsule 02/22/17 [Rx] Allergies/Adverse Reactions: 3 Allergy/AdvReac Type Severity Reaction Status Date / Time tiotropium Allergy Rash Verified 03/15/16 22:23 [From Spiriva with HandiHaler] bee stings AdvReac Anaphylaxis Uncoded 02/19/17 14:16 Certification: Further, I certify that my clinical findings support that this patient is homebound (i.e. absences from home require considerable and taxing effort and are for medical reasons or alevism services or infrequently or short duration when for other reasons) because: Homebound Reason: Leaving home requires considerable and taxing effort due to condition Attestation: My signature below is to certify that this patient is under my care and that I, or nurse practitioner, or a physician's field technical assistant working with me, has a face-to -face encounter with this patient.
[2017-02-22 11:19] VITALS: BP 106/80
[2017-02-22] MEDS ORDERED: NON-FORMULARY MEDICATION 1 EACH EACH (Alendronate Sodium [Fosamax] 70 MG) PO SCH (14:08)
--- NOTE | 2017-02-22 14:39 | Electrocardiograph Report ---
[place] [id number] Test Date: 2017-02-21 Pat Name: Emmanuel Bai Department: 110 Room: 2N08 Gender: M [employer]: LETA : 1950 Requested By: Dash Hodge Order Number: [id number] Reading MD: Roz Thomas Measurements Intervals [place] Rate: 90 P: VT: 0 QRS: 83 QRSD: 100 T: 55 QT: 358 QTc: 406 Interpretive Statements ATRIAL FIBRILLATION POSSIBLE RIGHT VENTRICULAR CONDUCTION DELAY MODERATE ST DEPRESSION Electronically Signed On 02-22-2017 14:37:18 EDT by Roz Thomas
[2017-02-22] MEDS ORDERED: Azithromycin 250 MG TABLET PO SCH (15:00)
== END 2017-02-22 14:13 | disposition home or self-care (01) | DRG 871 ==
LOC: EMEROO 07:51 → 2NNU 07:51 → SUATTDRO 11:59 → 2NNU 13:28
PROVIDERS: ADMIT Nurse Practitioner Family; ATTEND Internal Medicine

== ENCOUNTER 2017-03-12 22:22 | Inpatient (IN) ==
[2017-03-12 22:49] LABS: Basophils # 0.1 K/mcL (0.0-0.2); Basophils % 0.3 %; Eosinophils # 0.2 K/mcL (0.0-0.6); Hematocrit 43.8 % (37.5-50.1); Hemoglobin 13.5 g/dL (12.9-16.9); Immature Granulocytes % 0.9 % (0-4); Lymphocytes # 3.2 K/mcL (0.6-4.6); Lymphocytes % 18.9 %; Mean Corpuscular HGB Conc 30.8 g/dL (31.6-35.5); Mean Corpuscular Hemoglobin 27.9 pg (28.0-33.3); Mean Corpuscular Volume 90.5 fL (83.0-100.0); Mean Platelet Volume 8.8 fL (9.4-12.4); Monocytes % 5.8 %; Neutrophils # 12.2 K/mcL (1.6-8.9); Platelet Count 389 K/mcL (140-400); Red Blood Count 4.84 M/mcL (4.19-5.50); Red Cell Distribution Width 15.3 % (11.5-14.5); Segmented Neutrophils % 73.1 %
[2017-03-12 22:59] LABS: INR 1.1; Prothrombin Time 12.1 Seconds (9.4-12.1)
[2017-03-12 23:02] LABS: Activated Partial Thrombo Time 31.8 Seconds (26.0-36.0)
[2017-03-12 23:04] LABS: BUN/Creatinine Ratio 13 (6-26); Blood Urea Nitrogen 13 mg/dL (8-26); Calcium 9.9 mg/dL (8.6-10.8); Carbon Dioxide 27 mEq/L (19-29); Chloride 99 mEq/L (98-109); Glucose 122 mg/dL (70-99); Osmolality,Calculated 289 (280-300); Sodium 139 mEq/L (136-145); eGFR For African Americans > 60 (> 60); eGFR For Non-African Americans > 60 (> 60)
[2017-03-12 23:05] LABS: Alanine Aminotransferase 13 Units/L (0-55); Albumin 3.2 g/dL (3.5-5.0); Albumin/Globulin Ratio 0.5 (1.1-2.2); Alkaline Phosphatase 74 Units/L (38-126); Aspartate Amino Transferase 13 Units/L (5-34); Bilirubin,Direct 0.2 mg/dL (0.0-0.5); Bilirubin,Indirect 0.2 mg/dL (0.0-1.2); Bilirubin,Total 0.4 mg/dL (0.2-1.2); Globulin 5.9 g/dL (2.4-3.5); Total Protein 9.1 g/dL (6.0-8.3)
[2017-03-12 23:06] LABS: Lipase < 10 Units/L (8-78)
[2017-03-12] MEDS ORDERED: Levofloxacin 750 MG/150 ML 750 MG/150 ML BAG IVPB ONE (23:36)
--- NOTE | 2017-03-12 23:40 | Emergency Department Note ---
Disposition Clinical Impression: Pneumonia Qualifiers: Pneumonia type: due to unspecified organism Laterality: left Lung location: lower lobe of lung Qualified Code(s): J18.1 - Lobar pneumonia, unspecified organism Atrial fibrillation Qualifiers: Atrial fibrillation type: paroxysmal Qualified Code(s): I48.0 - Paroxysmal atrial fibrillation Disposition: Admitted As Inpatient Condition: Good [facility]Primary Care Provider[facility] - Forms: ED Satisfaction Letter Time of Disposition: 01:40 Arrhythmia/Palpitations HPI - General Chief Complaint: ED Arrhythmia/Palpitations Stated Complaint: [facility]-Fib per [facility] Time Seen by Provider: 03/12/17 22:27 Source: patient, family Mode of arrival: ambulatory Limitations: no limitations Nursing Notes Reviewed: Yes Vital Signs Reviewed: Yes - History of Present Illness HPI Narrative: 66 year old male presents to the ED from the [facility] for complaints of atrial fibrillation. PAtient has a history of paroxsymal atrial fibrillation he has takes verampil for therapy. PAtient states that he has had a productive cough and a history of emphysema at home and that he has had sbujective fever with chills. Patinet state the last time this happened he had pneumonia. Whenever patinet has any type of exertion he displays atrial fib with RVR into the 130s, but at rest he is 90-100s. PAtient states is also hypotensiv although he states that he is typically hypotensive due to the mediation that he is on for the atrial fibrillation. Experincing midsternal chest pain without radiation anywhere - Related Data Home Medications Medication Instructions Recorded Confirmed Albuterol Neb [Proventil Neb] 2.5 mg IH TID 02/19/17 02/19/17 Albuterol Sulfate [Albuterol 2 puff IH Q6H PRN 02/19/17 02/19/17 Inhaler] Alendronate Sodium [Fosamax] 70 mg PO WE 02/19/17 02/19/17 Alprostadil [[place]] 500 mcg UR AD PRN 02/19/17 02/19/17 Atorvastatin [Lipitor] 40 mg PO HS 02/19/17 02/19/17 Budesonide/Formoterol 160/4.5 2 puff IH BIDR 02/19/17 02/19/17 [Symbicort 160/4.5] Cetirizine HCl [All Day Allergy] 10 mg PO DAILY 02/19/17 02/19/17 Diclofenac Sodium [Voltaren] 1 appl TP BID 02/19/17 02/19/17 Gabapentin [Neurontin] 900 mg PO TID 02/19/17 02/19/17 Melatonin 10 mg PO HS 02/19/17 02/19/17 Multivitamin [Multi-Day Vitamins] 1 each PO DAILY 02/19/17 02/19/17 Nicotine Patch [Nicoderm] 7 mg TD DAILY 02/19/17 02/19/17 Omeprazole [PriLOSEC] 20 mg PO DAILY 02/19/17 02/19/17 Oxycodone HCl/Acetaminophen 1 each PO 5XD PRN 02/19/17 02/19/17 [Percocet 10-325 mg Tablet] Potassium Chloride [K-Tab ER] 10 meq PO DAILY 02/19/17 02/19/17 Sertraline [Zoloft] 100 mg PO DAILY 02/19/17 02/19/17 Theophylline Anhydrous [Oliver-24] 200 mg PO DAILY 02/19/17 02/19/17 Verapamil HCl [Verapamil ER] 180 mg PO DAILY 02/19/17 02/19/17 Zolpidem [Ambien] 10 mg PO HS 02/19/17 02/19/17 Previous Rx's Medication Instructions Recorded Azithromycin [Zithromax] 500 mg PO DAILY #5 tablet 02/22/17 Cefdinir [Omnicef] 300 mg PO BID #9 capsule 02/22/17 predniSONE [PredniSONE] 10 mg PO DAILY #0 02/22/17 predniSONE [PredniSONE] 20 mg PO DAILY #10 tab 02/22/17 Allergies Allergy/AdvReac Type Severity Reaction Status Date / Time tiotropium Allergy Rash Verified 03/15/16 22:23 [From Spiriva with HandiHaler] bee stings AdvReac Anaphylaxis Uncoded 02/19/17 14:16 Constitutional: Denies: fever, chills, weakness, weight change Eyes: Denies: eye pain, eye discharge, vision change ENT ED: Denies: ear pain, throat pain, dental pain, hearing loss, epistaxis, congestion, dysphagia Cardiovascular: Reports: chest pain, palpitations, dyspnea on exertion. Denies : edema, syncope Respiratory: Reports: cough. Denies: dyspnea, wheezes, hemoptysis, stridor Gastrointestinal: Denies: abdominal pain, nausea, vomiting, diarrhea, constipation, hematemesis, melena, hematochezia Genitourinary: Denies: urgency, dysuria, frequency, hematuria Musculoskeletal: Denies: back pain, neck pain, arthralgia, myalgia Integumentary: Denies: rash, abrasion, lesions Neurological: Denies: headache, weakness, numbness, paresthesias, confusion, abnormal gait, vertigo Psychiatric: Denies: anxiety, depression, suicidal thoughts, homicidal thoughts , auditory hallucinations, visual hallucinations Endocrine: Denies: fatigue Hematological/Lymphatic: Denies: easy bleeding, easy bruising Allergic/Immunologic: Denies: facial swelling, urticaria Past Medical History - Past Medical History Medical history: Reports: atrial fibrillation, COPD, coronary artery disease, fibromyalgia, GERD, hyperlipidemia, hypertension, valvular heart disease Surgical history: Reports: appendectomy, other Psychiatric history: Reports: anxiety, depression - Social History Smoking Status: Current every day smoker Smokeless Tobacco Status: No Alcohol use: Reports: none Drug use: Reports: none Physical Exam - General Limitations: no limitations General appearance: alert, in distress - Head Head exam: atraumatic, normocephalic, normal inspection - Eye Eye exam: Present: normal appearance, PERRL, EOMI - Expanded Eye Exam Pupils: Left: reactive - ENT ENT exam: normal exam, normal oropharynx, mucous membranes moist - Expanded ENT Exam External ear exam: Present: normal external inspection Mouth exam: Present: normal external inspection Teeth exam: Present: normal inspection Throat exam: Present: normal inspection - Neck Neck exam: Present: normal inspection, full ROM, trachea midline - Chest Chest inspection: Present: normal inspection, symmetric chest wall rise - Respiratory Respiratory exam: Present: wheezes - Cardiovascular Cardiovascular exam: Present: normal rhythm, tachycardia, normal heart sounds - Abdominal Exam Abdominal exam: Present: soft, Non-Tender. Absent: tenderness, distention, guarding, rebound, rigidity - Extremities Exam Extremities exam: Present: normal inspection, full ROM. Absent: tenderness, pedal edema - Expanded Upper Extremity Exam Shoulder exam: Present: normal inspection, full ROM Arm exam: Present: normal inspection, full ROM Elbow exam: Present: normal inspection, full ROM Forearm/Wrist exam: Present: normal inspection, full ROM Hand exam: Present: normal inspection, full ROM Vascular exam: Normal: capillary refill, radial pulse - Expanded Lower Extremity Exam Hip/Pelvis exam: Present: normal inspection, full ROM Upper leg exam: Present: normal inspection, full ROM Knee exam: Present: normal inspection, full ROM Lower leg exam: Present: normal inspection, full ROM Ankle exam: Present: normal inspection, full ROM Foot/toe exam: Present: normal inspection, full ROM Neurovascular/Tendon exam: Absent: motor deficit, sensory deficit, tendon deficit - Back Exam Back exam: Present: normal inspection, full ROM. Absent: tenderness - Neurological Exam Neurological exam: Present: alert, oriented X3 - Expanded Neurological Exam Patient oriented to: Present: person, place, time Coma Scale Eye Opening: Spontaneous Coma Scale Motor Response: Obeys Commands Coma Scale Verbal Response: Oriented Coma Scale Total: 15 - Psychiatric Psychiatric exam: Present: normal affect, normal mood - Skin Skin exam: Present: warm, dry, intact, normal color Course Course Narrative: we will do a cardiac workup with CTA chest to rule out PE - Reevaluation(s) Reevaluation #1: update patient results, he is agreeable to admission to the hospital today. Time: 01:39 - Consultations Consultation #1: discussed case with Dr. Hodge and she accepts patinet for admission. Time: 01:39 Vital Signs Temperature 98.3 F 03/12/17 22:30 Pulse Rate 100 03/12/17 22:30 Respiratory Rate 20 03/12/17 22:30 Blood Pressure 116/68 03/12/17 22:30 O2 Sat by Pulse Oximetry 97 03/12/17 22:30 Temperature 98.3 F 03/12/17 22:30 Pulse Rate 110 03/12/17 23:53 Respiratory Rate 16 03/13/17 00:14 Blood Pressure 101/64 03/12/17 23:53 O2 Sat by Pulse Oximetry 96 03/13/17 00:14 Oxygen Delivery Oxygen Delivery Room Air Arrhythmia/Palpitations - Medical Records Medical records reviewed: Yes I reviewed the patient's medical records. - Lab Data Lab results reviewed: Yes I reviewed the patient's lab results. Result diagrams: 03/12/17 22:35 03/12/17 22:35 Lab Results 03/12/17 03/12/17 03/12/17 Range/Units 22:35 22:35 22:35 WBC (4.3-11.1) K/mcL RBC (4.19-5.50) M/mcL Hgb (12.9-16.9) g/dL Hct (37.5-50.1) % MCV (83.0-100.0) fL MCH (28.0-33.3) pg MCHC (31.6-35.5) g/dL RDW (11.5-14.5) % Plt Count (140-400) K/mcL MPV (9.4-12.4) fL Immature Gran % (0-4) % Seg Neutrophils % % Lymphocytes % % Monocytes % % Eosinophils % % Basophils % % Neutrophils # (1.6-8.9) K/mcL Lymphocytes # (0.6-4.6) K/mcL Monocytes # (0.0-1.3) K/mcL Eosinophils # (0.0-0.6) K/mcL Basophils # (0.0-0.2) K/mcL PT 12.1 (9.4-12.1) Seconds INR 1.1 APTT 31.8 (26.0-36.0) Seconds Sodium (136-145) mEq/L Potassium (3.5-4.5) mEq/L Chloride (98-109) mEq/L Carbon Dioxide (19-29) mEq/L BUN (8-26) mg/dL Creatinine (0.72-1.25) mg/dL Est GFR ( Amer) (> 60) Est GFR (Non-Af Amer) (> 60) BUN/Creatinine Ratio (6-26) Glucose (70-99) mg/dL Calculated Osmolality (280-300) Calcium (8.6-10.8) mg/dL Total Bilirubin 0.4 (0.2-1.2) mg/dL Direct Bilirubin 0.2 (0.0-0.5) mg/dL Indirect Bilirubin 0.2 (0.0-1.2) mg/dL AST 13 (5-34) Units/L ALT 13 (0-55) Units/L Alkaline Phosphatase 74 (38-126) Units/L Troponin I (0-0.03) ng/mL B-Natriuretic Peptide 151 H (0-100) pg/mL Serum Total Protein 9.1 H (6.0-8.3) g/dL Albumin 3.2 L (3.5-5.0) g/dL Globulin 5.9 H (2.4-3.5) g/dL Albumin/Globulin Ratio 0.5 L (1.1-2.2) Lipase < 10 (8-78) Units/L 03/12/17 03/12/17 03/12/17 Range/Units 22:35 22:35 22:49 WBC 16.7 H (4.3-11.1) K/mcL RBC 4.84 (4.19-5.50) M/mcL Hgb 13.5 (12.9-16.9) g/dL Hct 43.8 (37.5-50.1) % MCV 90.5 (83.0-100.0) fL MCH 27.9 L (28.0-33.3) pg MCHC 30.8 L (31.6-35.5) g/dL RDW 15.3 H (11.5-14.5) % Plt Count 389 (140-400) K/mcL MPV 8.8 L (9.4-12.4) fL Immature Gran % 0.9 (0-4) % Seg Neutrophils % 73.1 % Lymphocytes % 18.9 % Monocytes % 5.8 % Eosinophils % 1.0 % Basophils % 0.3 % Neutrophils # 12.2 H (1.6-8.9) K/mcL Lymphocytes # 3.2 (0.6-4.6) K/mcL Monocytes # 1.0 (0.0-1.3) K/mcL Eosinophils # 0.2 (0.0-0.6) K/mcL Basophils # 0.1 (0.0-0.2) K/mcL PT (9.4-12.1) Seconds INR APTT (26.0-36.0) Seconds Sodium 139 (136-145) mEq/L Potassium 4.0 (3.5-4.5) mEq/L Chloride 99 (98-109) mEq/L Carbon Dioxide 27 (19-29) mEq/L BUN 13 (8-26) mg/dL Creatinine 0.99 (0.72-1.25) mg/dL Est GFR ( Amer) > 60 (> 60) Est GFR (Non-Af Amer) > 60 (> 60) BUN/Creatinine Ratio 13 (6-26) Glucose 122 H (70-99) mg/dL Calculated Osmolality 289 (280-300) Calcium 9.9 (8.6-10.8) mg/dL Total Bilirubin (0.2-1.2) mg/dL Direct Bilirubin (0.0-0.5) mg/dL Indirect Bilirubin (0.0-1.2) mg/dL AST (5-34) Units/L ALT (0-55) Units/L Alkaline Phosphatase (38-126) Units/L Troponin I 0.01 (0-0.03) ng/mL B-Natriuretic Peptide (0-100) pg/mL Serum Total Protein (6.0-8.3) g/dL Albumin (3.5-5.0) g/dL Globulin (2.4-3.5) g/dL Albumin/Globulin Ratio (1.1-2.2) Lipase (8-78) Units/L - Radiology Data Radiology results reviewed: Yes I reviewed the patient's radiology results. - EKG Data EKG attestation: Yes I reviewed and interpreted this EKG. EKG results narrative: sinus tachycardia with rate of 100. NO STEMI. normal intervals.no change from 02/21/17. [id number]
[2017-03-12] MEDS ORDERED: methylPREDNISolone 125 MG/2 ML VIAL IVP ONE (23:41)
[2017-03-12] MEDS ORDERED: Ipratropium/Albuterol Neb 3 ML IH ONE (23:41)
[2017-03-13] MEDS ORDERED: 0.9 % Sodium Chloride 1,000 ML IVC SCH ×2 (01:00→02:15)
[2017-03-13] MEDS ORDERED: Naloxone 0.4 MG/ML INJ IVP PRN (02:14)
[2017-03-13] MEDS ORDERED: Acetaminophen 325 MG TABLET PO PRN (02:14)
--- NOTE | 2017-03-13 02:29 | Internal Med History&Physical ---
Date of Encounter: 03/13/17 Time of Encounter: 03:19 Assessment and Plan (1) Abdominal pain Current visit: Yes Status: Acute Abdominal pain beyond proportion of abdominal exam Lactate STAT IVF hydration Abdomen and Pelvis CTA STAT Patient is high risk for bowel ischemia/mesenteric ischemia due to hx of afib Qualifiers: Abdominal location: unspecified location Qualified Code(s): R10.9 - Unspecified abdominal pain (2) Sepsis Current visit: Yes Status: Acute Presumed, due to tachycardia, hypotension, leukocytosis and chest CT finding of resolving pneumonia Patient is on chronic steroid therapy and this may explain his leukocytosis He has no fever Lactate level is pending Presumed source for now is Pneumonia Add Cefepime and Vancomycin to Levoflox due to recent hospitalization Qualifiers: Sepsis type: sepsis due to unspecified organism Qualified Code(s): A41.9 - Sepsis, unspecified organism (3) Pneumonia Current visit: Yes Status: Acute As above Send respiratory panel Qualifiers: Pneumonia type: due to unspecified organism Laterality: left Lung location: lower lobe of lung Qualified Code(s): J18.1 - Lobar pneumonia, unspecified organism (4) Leukocytosis Current visit: Yes Status: Acute Multifactorial: Stress from abdominal event, chronic steroid therapy, possible sepsis Qualifiers: Leukocytosis type: unspecified Qualified Code(s): D72.829 - Elevated white blood cell count, unspecified (5) Afib Current visit: Yes Status: Chronic In RVR at time of presentation RVR possibly from pain, sepsis, Continue home medications for now Patient is not on anticoagulation due to CHADs score of 0 May initiate ASA after abdominal imaging is resulted and r/o hge Qualifiers: Atrial fibrillation type: paroxysmal Qualified Code(s): I48.0 - Paroxysmal atrial fibrillation (6) CAD (coronary artery disease) Current visit: Yes Status: Chronic Cycle troponin Patient has epigastric pain EKG is unchanged No recent ECHHO Obtain ECHO Qualifiers: Coronary Disease-Associated Artery/Lesion type: [place] artery [place] vs. transplanted heart: [place] heart Associated angina: without angina Qualified Code(s): I25.10 - Atherosclerotic heart disease of [place] coronary artery without angina pectoris (7) GERD (gastroesophageal reflux disease) Current visit: Yes Status: Chronic Qualifiers: Esophagitis presence: esophagitis presence not specified Qualified Code(s) : K21.9 - Gastro-esophageal reflux disease without esophagitis (8) HLD (hyperlipidemia) Current visit: Yes Status: Chronic Qualifiers: Hyperlipidemia type: unspecified Qualified Code(s): E78.5 - Hyperlipidemia , unspecified (9) HTN (hypertension) Current visit: Yes Status: Chronic Hypotensive at this time, received one dose diltiazem in ER Hold medications for now Qualifiers: Hypertension type: essential hypertension Qualified Code(s): I10 - Essential (primary) hypertension (10) Tobacco abuse Current visit: Yes Status: Chronic Internal Medicine - H&P: HPI Chief complaint: Chest pain Admitted From: Home Plans for Post Hospital Care: Home History of present illness: Mr. Bai is a 66 year old male with medical history of atrial fibrillation COPD with steroid dependency, CAD, fibromyalgia from previous shingles, HLD, HTN, valvular heart disease, and GERD Patient presented to the ER with abdominal pain, epigastric in location, severe , 10/10 with associated diaphoresis. Per ER tram, [facility] At time of review, patient is curled up complaining of severe abdominal pain, said to be sharp and radiating from his epigastrium to his chest Patient was hypotensive in the ER and is still in pain and hypotensive at my time of review He denies nausea, vomiting, diarrhea, HE denies shortness of breath above his baseline, he is on prednisone for severe bullous emphysema, he denies chest pain He is diaphoretic from his abdominal pain but his abdomen is soft and not tender He has extensive smoking history Past Med Surg Social Fam HX - Past Medical History Medical history: atrial fibrillation, COPD, coronary artery disease, fibromyalgia, GERD, hyperlipidemia, hypertension, valvular heart disease Psychiatric history: anxiety, depression - Past Surgical History Surgical History: appendectomy, other - Social History Smoking Status: Current every day smoker Smokeless Tobacco Status: No Alcohol use: none Drug use: none - Family History Sister Family Member Ethnicity: Non- Living Status: Still Living Hx Family Cardiac Disorders: Yes (HD) Hx Family Respiratory Disorders: No Hx Family Cancer: Yes (Breast) Hx Family GI Disorders: No Hx Family Endocrine Disorder: No Hx Family Neuromuscular Disorders: No Hx Family Neurologic Disorders: No Hx Family HEENT Disorders: No Hx Family Autoimmune Disorders: No Brother Family Member Ethnicity: Non- Living Status: Still Living Mother Family Member Ethnicity: Non- Living Status: Father Family Member Ethnicity: Non- Living Status: Hx Family Cancer: Yes (Bladder) Internal Medicine - H&P: Meds Albuterol Neb [Proventil Neb] 2.5 mg IH TID 02/19/17 [History] Albuterol Sulfate [Albuterol Inhaler] 2 puff IH Q6H PRN 02/19/17 [History] Alendronate Sodium [Fosamax] 70 mg PO WE 02/19/17 [History] Alprostadil [[place]] 500 mcg UR AD PRN 02/19/17 [History] Atorvastatin [Lipitor] 40 mg PO HS 02/19/17 [History] Budesonide/Formoterol 160/4.5 [Symbicort 160/4.5] 2 puff IH BIDR 02/19/17 [ History] Cetirizine HCl [All Day Allergy] 10 mg PO DAILY 02/19/17 [History] Diclofenac Sodium [Voltaren] 1 appl TP BID 02/19/17 [History] Gabapentin [Neurontin] 900 mg PO TID 02/19/17 [History] Melatonin 10 mg PO HS 02/19/17 [History] Multivitamin [Multi-Day Vitamins] 1 each PO DAILY 02/19/17 [History] Nicotine Patch [Nicoderm] 7 mg TD DAILY 02/19/17 [History] Omeprazole [PriLOSEC] 20 mg PO DAILY 02/19/17 [History] Oxycodone HCl/Acetaminophen [Percocet 10-325 mg Tablet] 1 each PO 5XD PRN [History] Potassium Chloride [K-Tab ER] 10 meq PO DAILY 02/19/17 [History] Sertraline [Zoloft] 100 mg PO DAILY 02/19/17 [History] Theophylline Anhydrous [Oliver-24] 200 mg PO DAILY 02/19/17 [History] Verapamil HCl [Verapamil ER] 180 mg PO DAILY 02/19/17 [History] Zolpidem [Ambien] 10 mg PO HS 02/19/17 [History] Azithromycin [Zithromax] 500 mg PO DAILY #5 tablet 02/22/17 [Rx] Cefdinir [Omnicef] 300 mg PO BID #9 capsule 02/22/17 [Rx] predniSONE [PredniSONE] 10 mg PO DAILY #0 02/22/17 [Rx] predniSONE [PredniSONE] 20 mg PO DAILY #10 tab 02/22/17 [Rx] 3 Allergy/AdvReac Type Severity Reaction Status Date / Time tiotropium Allergy Rash Verified 03/15/16 22:23 [From Spiriva with HandiHaler] bee stings AdvReac Anaphylaxis Uncoded 02/19/17 14:16 All Systems PM: A 10-system review of systems was performed and is negative for pertinent findings except as documented above in the HPI. - Constitutional Constitutional: no chills, no fever(s), no night sweats - EENT Eyes: no change in vision, no discharge, no pain, no photophobia Ears: no ear discharge, no ear pain, no tinnitus Nose, mouth and throat: no dysphagia, no nasal discharge, no neck pain, no sore throat - Cardiovascular Cardiovascular ROS IM: as per HPI - Respiratory Respiratory: as per HPI - Gastrointestinal Gastrointestinal: as per HPI - Musculoskeletal Musculoskeletal ROS IM: no numbness, no tingling - Integumentary Integumentary IM: no rash, no unusual bruising - Neurological Neurological ROS: no confusion, no convulsions, no focal weakness, no numbness, no tingling, no tremor(s) - Hematologic/Lymphatic Hematologic/Lymphatic: no easy bruising - Constitutional Vitals: Temp Pulse Resp BP Pulse Ox 98.3 F 137 20 91/81 98 03/12/17 22:30 03/13/17 02:15 03/13/17 02:24 03/13/17 02:24 03/13/17 02:15 General appearance: Present: A&O X 3, pleasant, severe distress (10/10 abdominal pain) - Head Head exam: Present: atraumatic, normocephalic - Eye Eye exam: Present: PERRL, conjuntiva pink, sclera anicteric Pupils: Present: PERRL - Neck Neck exam general surgery: Present: supple, trachea midline. Absent: lymphadenopathy - Respiratory Respiratory exam: Present: CTAB (Diminished air entry with no wheezing or crackles, no rales). Absent: accessory muscle use, rales, rhonchi, wheezes - Cardiovascular Cardiovascular exam: Present: RRR, +S1, +S2. Absent: diastolic murmur, gallop, rubs, systolic murmur - GI/Abdominal GI/Abdominal exam: Present: normal bowel sounds, soft, no peritoneal signs. Absent: distended, tenderness - Extremities Exam Extremities exam: Present: warm, radial pulses palpable and symmetrical. Absent : calf tenderness, cyanotic, pedal edema - Neurological Exam Neurological exam: Present: alert, CN II-XII intact, oriented X3, no focal deficits. Absent: pronater drift, facial droop, speech deficit - Skin Skin exam: Present: dry, intact Internal Med - H&P Results - Labs CBC & Chem 7: 03/12/17 22:35 03/12/17 22:35
[2017-03-13 02:47] LABS: Bilirubin,Urine Negative (Negative); Blood,Urine Negative (Negative); Clarity,Urine Clear (Clear); Color,Urine Yellow (Yellow); Glucose,Urine (UA) Normal (Normal); Ketones,Urine Negative (Negative); Leukocyte Esterase,Urine Negative (Negative); Nitrite,Urine Negative (Negative); Protein,Urine Negative (Neg-Trace); Specific Gravity,Urine > 1.030 (1.010-1.025); Urobilinogen,Urine Normal (Normal)
[2017-03-13] MEDS: *HR* HYDROmorphone (PF) 1 MG/ML SYRINGE IVP PRN (03:19)
[2017-03-13] MEDS ORDERED: Vancomycin 1,000 MG in D5% in Water 250 ML IVPB ONE (03:30)
[2017-03-13 03:37] LABS: Basophils % 0.1 %; Eosinophils % 0.1 %; Hematocrit 36.4 % (37.5-50.1); Lymphocytes # 0.5 K/mcL (0.6-4.6); Mean Corpuscular Hemoglobin 28.3 pg (28.0-33.3); Mean Corpuscular Volume 91.2 fL (83.0-100.0); Mean Platelet Volume 8.7 fL (9.4-12.4); Monocytes # 0.1 K/mcL (0.0-1.3); Monocytes % 0.7 %; Neutrophils # 14.7 K/mcL (1.6-8.9); Platelet Count 290 K/mcL (140-400); Red Blood Count 3.99 M/mcL (4.19-5.50); Red Cell Distribution Width 15.3 % (11.5-14.5); Segmented Neutrophils % 95.1 %
[2017-03-13 04:03] LABS: Hemoglobin 11.3 g/dL (12.9-16.9)
[2017-03-13 04:11] LABS: BUN/Creatinine Ratio 13 (6-26); Blood Urea Nitrogen 11 mg/dL (8-26); Carbon Dioxide 24 mEq/L (19-29); Chloride 106 mEq/L (98-109); Glucose 156 mg/dL (70-99); Osmolality,Calculated 293 (280-300); Potassium 3.7 mEq/L (3.5-4.5); Sodium 140 mEq/L (136-145); eGFR For African Americans > 60 (> 60); eGFR For Non-African Americans > 60 (> 60)
[2017-03-13 04:17] LABS: Calcium 8.2 mg/dL (8.6-10.8)
[2017-03-13] MEDS: Albuterol 2.5 MG/3 ML NEBULIZER IH SCH ×3 (04:51→11:16)
[2017-03-13] MEDS: Ipratropium/Albuterol Neb 3 ML IH SCH ×6 (04:51→20:38)
[2017-03-13 05:15] LABS: Adenovirus Not Detected (Not Detect); Bordetella Pertussis Not Detected (Not Detect); Chlamydophila pneumoniae Not Detected (Not Detect); Coronavirus 229E Not Detected (Not Detect); Coronavirus HKU1 Not Detected (Not Detect); Coronavirus NL63 Not Detected (Not Detect); Coronavirus OC43 Not Detected (Not Detect); Human Metapneumovirus Not Detected (Not Detect); Human Rhinovirus/Enterovirus Not Detected (Not Detect); Influenza A Subtype 2009 H1 Not Detected (Not Detect); Influenza A Untypeable Not Detected (Not Detect); Influenza B Not Detected (Not Detect); Mycoplasma pneumoniae Not Detected (Not Detect); Parainfluenza Virus 1 Not Detected (Not Detect); Parainfluenza Virus 2 Not Detected (Not Detect); Parainfluenza Virus 3 Not Detected (Not Detect); Parainfluenza Virus 4 Not Detected (Not Detect); Respiratory Syncytial Virus Not Detected (Not Detect)
[2017-03-13] MEDS: Vancomycin 1,000 MG in D5% in Water 250 ML IVPB SCH ×2 (05:15→16:25)
[2017-03-13] MEDS ORDERED: *HR* Enoxaparin 40 MG/0.4 ML SYRINGE SQ SCH (06:00)
[2017-03-13] MEDS: Cefepime HCl 1,000 MG in D5% in Water (Mini-Bag+) 100 ML IVPB SCH ×2 (08:41→16:24)
[2017-03-13] MEDS: *HR* HYDROcodone/Acet 5/325 mg TABLET PO PRN ×2 (08:41→16:24)
[2017-03-13] MEDS: Gabapentin 300 MG CAPSULE PO SCH ×3 (08:41→21:48)
--- NOTE | 2017-03-13 12:12 | Electrocardiograph Report ---
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
--- NOTE | 2017-03-13 12:17 | Electrocardiograph Report ---
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
--- NOTE | 2017-03-13 15:31 | Internal Med Progress Note ---
<Bozena Banuelos - Last Filed: 03/13/17 16:49> Date of Encounter: 03/13/17 Time of Encounter: 10:00 - Assessment and plan (1) Abdominal pain Current Visit: Yes Status: Acute Assessment and plan: Patient presented to the emergency department with abdominal pain beyond proportion of exam. Lactic acid is within normal limits. CT of the abdomen and pelvis shows no acute abnormality. While patient was at risk for bowel ischemia or mesenteric ischemia due to his history of atrial fibrillation, we are minimally concerned at this time. Patient is resting comfortably. Qualifiers: Abdominal location: epigastric Qualified Code(s): R10.13 - Epigastric pain (2) Sepsis Current Visit: Yes Status: Acute Assessment and plan: Patient was admitted for presumed sepsis secondary to tachycardia, hypotension, leukocysotis, and chest CT finding of resolving PNA. Leukocytosis may be explained by chronic steroid therapy. Patient has been afebrile with normal lactate. Patient has resolving PNA which is being treated with cefepime and vanc due to recent hospitalization. Qualifiers: Sepsis type: sepsis due to unspecified organism Qualified Code(s): A41.9 - Sepsis, unspecified organism (3) Pneumonia Current Visit: Yes Status: Acute Assessment and plan: As per above sepsis. CT shows resolving PNA of lower lobes. Will treat as healthcare associated PNA due to recent hospitalization. Qualifiers: Pneumonia type: due to unspecified organism Laterality: left Lung location: lower lobe of lung Qualified Code(s): J18.1 - Lobar pneumonia, unspecified organism (4) Leukocytosis Current Visit: Yes Status: Acute Assessment and plan: Most likely due to chronic steroid therapy as patient is afebrile and well- appearing. Could be part of resolution of healthcare-associated PNA Qualifiers: Leukocytosis type: unspecified Qualified Code(s): D72.829 - Elevated white blood cell count, unspecified (5) Afib Current Visit: Yes Status: Chronic Assessment and plan: Patient in RVR at time of presentation. RVR could be from pain or secondary to infection/sepsis. We will continue home medications for now. Patient in not on anticoagulation due to CHADs score of 0. Will consider started ASA tomorrow as abdominal imaging reveals no hemorrhage. Qualifiers: Atrial fibrillation type: paroxysmal Qualified Code(s): I48.0 - Paroxysmal atrial fibrillation (6) CAD (coronary artery disease) Current Visit: Yes Status: Chronic Assessment and plan: Will monitor troponin. Patient had epigastric pain upon admission, no longer in distress. EKG shows no changes. Will consider ordering or trying to obtain ECHO. Qualifiers: Coronary Disease-Associated Artery/Lesion type: [place] artery [place] vs. transplanted heart: [place] heart Associated angina: without angina Qualified Code(s): I25.10 - Atherosclerotic heart disease of [place] coronary artery without angina pectoris (7) GERD (gastroesophageal reflux disease) Current Visit: Yes Status: Chronic Assessment and plan: Will start patient on pepcid as he was having abdominal pain yesterday with no clear etiology. As he is being treated with antibiotics, we will do pepcid over protonix. Qualifiers: Esophagitis presence: esophagitis presence not specified Qualified Code(s) : K21.9 - Gastro-esophageal reflux disease without esophagitis (8) HLD (hyperlipidemia) Current Visit: Yes Status: Chronic Qualifiers: Hyperlipidemia type: unspecified Qualified Code(s): E78.5 - Hyperlipidemia , unspecified (9) HTN (hypertension) Current Visit: Yes Status: Chronic Assessment and plan: Patient hypotensive in the ER. He received one dose of diltiazem in the ER. Will consider resuming home medications tomorrow. Qualifiers: Hypertension type: essential hypertension Qualified Code(s): I10 - Essential (primary) hypertension (10) Tobacco abuse Current Visit: Yes Status: Chronic - Subjective Interval history: 66 yo male with PMHx of atrial fibrillation, COPD with steroid dependency, CAD, HLD, HTN, valvular heart disease and GERD. Patient presented to ER with severe epigastric pain [facility]. Patient was hypotensive with an elevated WBC. He was admitted for abdominal pain, sepsis, PNA, leukocytosis, and afib. Upon examination this morning, patient is resting comfortably. He does complain that he takes oxycodone at home, yet he was given hydrocodone today. He denies any abdominal pain, chest pain or shortness of air. He has not had any diarrhea, constipation, hematochezia, melana, hematuria , or dysuria. - Constitutional Vitals: Temp Pulse Resp BP Pulse Ox 98.0 F 87 17 138/81 95 03/13/17 07:47 03/13/17 08:52 03/13/17 07:47 03/13/17 07:47 03/13/17 08:52 General appearance: Present: cooperative, A&O X 3, pleasant - Head Head exam: Present: atraumatic, normal inspection, normocephalic - Respiratory Respiratory exam: Present: CTAB. Absent: rales, rhonchi, stridor, wheezes - Cardiovascular Cardiovascular exam: Present: RRR. Absent: diastolic murmur, systolic murmur - GI/Abdominal GI/Abdominal exam: Present: soft. Absent: distended, guarding, tenderness - Extremities Exam Extremities exam: Present: warm, radial pulses palpable and symmetrical. Absent : calf tenderness, pedal edema - Neurological Exam Neurological exam: Present: alert, altered, normal gait Internal Medicine: Result - Labs CBC & Chem 7: 03/13/17 03:21 03/13/17 03:21 Labs: Short CBC 03/13/17 Range/Units 03:21 WBC 15.4 H (4.3-11.1) K/mcL Hgb 11.3 L D (12.9-16.9) g/dL Hct 36.4 L (37.5-50.1) % Plt Count 290 (140-400) K/mcL Neutrophils # 14.7 H (1.6-8.9) K/mcL BMP 03/13/17 03:21 Sodium 140 Potassium 3.7 Chloride 106 Carbon Dioxide 24 BUN 11 Creatinine 0.82 Glucose 156 H Calcium 8.2 L D Cardiac Enzymes 03/13/17 Range/Units Unknown Troponin I 0.03 (0-0.03) ng/mL Urine 03/13/17 Range/Units 02:40 Urine Color Yellow (Yellow) Urine Clarity Clear (Clear) Urine pH 7.0 (5.0-8.0) pH Units Ur Specific [place] > 1.030 H (1.010-1.025) Urine Protein Negative (Neg-Trace) mg/dL Urine Glucose (UA) Normal (Normal) mg/dL - ABG Interpretation ABG results: PT/INR, D-dimer PT 12.1 Seconds (9.4-12.1) 03/12/17 22:35 - Impressions Impressions Abdomen/Pelvis CTA 03/13/17 03:17 IMPRESSION: No acute abnormality with chronic findings as detailed above. D/ / Starr Klein MD / Starr Klein MD Interpreting Provider: Starr Klein MD Consult Discharge Plan - Plan [facility] Care Provider[facility] - <Edy Bach - Last Filed: 03/13/17 19:35> Date of Encounter: 03/13/17 - Constitutional Vitals: Temp Pulse Resp BP Pulse Ox 98.0 F 87 16 138/81 97 03/13/17 07:47 03/13/17 08:52 03/13/17 16:01 03/13/17 07:47 03/13/17 16:01 Internal Medicine: Result - Labs CBC & Chem 7: 03/13/17 03:21 03/13/17 03:21 Labs: Short CBC 03/13/17 Range/Units 03:21 WBC 15.4 H (4.3-11.1) K/mcL Hgb 11.3 L D (12.9-16.9) g/dL Hct 36.4 L (37.5-50.1) % Plt Count 290 (140-400) K/mcL Neutrophils # 14.7 H (1.6-8.9) K/mcL BMP 03/13/17 03:21 Sodium 140 Potassium 3.7 Chloride 106 Carbon Dioxide 24 BUN 11 Creatinine 0.82 Glucose 156 H Calcium 8.2 L D Cardiac Enzymes 03/13/17 03/13/17 Range/Units 16:52 Unknown Troponin I 0.01 0.03 (0-0.03) ng/mL Urine 03/13/17 Range/Units 02:40 Urine Color Yellow (Yellow) Urine Clarity Clear (Clear) Urine pH 7.0 (5.0-8.0) pH Units Ur Specific [place] > 1.030 H (1.010-1.025) Urine Protein Negative (Neg-Trace) mg/dL Urine Glucose (UA) Normal (Normal) mg/dL - ABG Interpretation ABG results: PT/INR, D-dimer PT 12.1 Seconds (9.4-12.1) 03/12/17 22:35 - Impressions Impressions Abdomen/Pelvis CTA 03/13/17 03:17 IMPRESSION: No acute abnormality with chronic findings as detailed above. D/ / Starr Klein MD / Starr Klein MD Interpreting Provider: Starr Klein MD - Attending Attestation I examined this patient and my medical decision-making was reviewed with the Resident Physician, Dr. Banuelos. I agree with the documented findings, disposition and treatment plan as described except to the extent set forth below. My findings are summarized below: Patient was transferred to our hospital from the [place] due to concern for sepsis. He is being treated for pneumonia. Lung exam reveals bilateral rails and wheezes. Plan continue with broad-spectrum IV antibiotics. Obtain Quantiferon t-test to rule out TB due to bilateral apical cavitary lesions. Overall problems are new to me today.
[2017-03-13] MEDS ORDERED: Albuterol 2.5 MG/3 ML NEBULIZER IH PRN (16:00)
[2017-03-13] MEDS: MethylPREDNISolone 40 MG/ML VIAL IVP SCH (16:25)
[2017-03-13] MEDS: Famotidine 20 MG TABLET PO SCH ×2 (18:40→19:10)
[2017-03-13] MEDS: Aspirin 81 MG TAB.CHEW PO SCH (18:40)
[2017-03-13] MEDS: *HR* OxyCODONE/APAP 10/325 TABLET PO PRN (19:16)
[2017-03-13] MEDS ORDERED: Famotidine 20 MG TABLET PO SCH (21:00)
[2017-03-13] MEDS: Levofloxacin 750 MG/150 ML 750 MG/150 ML BAG IVPB SCH (21:48)
[2017-03-13] MEDS: Melatonin 3 MG TABLET PO SCH (21:48)
[2017-03-13] MEDS ORDERED: *HR* Heparin 5,000 UNIT/ML VIAL IVP ONE (23:05)
[2017-03-13] MEDS ORDERED: *HR* Heparin 5,000 UNIT/ML VIAL IVP PRN (23:05)
--- NOTE | 2017-03-13 23:09 | Event Note ---
Date of Encounter: 03/13/17 Time of Encounter: 23:07 This patient is admitted and being managed for sepsis. he had developed abdominal pain on admission with Afib with RVR and also said to have had chest pain/indigestion at 1640. His EKG was unremarkable His troponin resulted now and is 0.28. He has been started on heparin drip, low dose ACS protocol His ECHO has just been done and not reported yet Cardiology has been consulted , patient is currently chest pain free.
[2017-03-14] MEDS: Ipratropium/Albuterol Neb 3 ML IH SCH ×6 (00:01→21:03)
[2017-03-14] MEDS: MethylPREDNISolone 40 MG/ML VIAL IVP SCH ×3 (00:31→16:06)
[2017-03-14] MEDS: Cefepime HCl 1,000 MG in D5% in Water (Mini-Bag+) 100 ML IVPB SCH ×3 (00:31→16:08)
[2017-03-14 01:26] LABS: Hematocrit 34.5 % (37.5-50.1); Hemoglobin 10.9 g/dL (12.9-16.9); Mean Corpuscular HGB Conc 31.6 g/dL (31.6-35.5); Mean Corpuscular Hemoglobin 28.5 pg (28.0-33.3); Mean Corpuscular Volume 90.3 fL (83.0-100.0); Mean Platelet Volume 9.1 fL (9.4-12.4); Platelet Count 292 K/mcL (140-400); Red Blood Count 3.82 M/mcL (4.19-5.50); Red Cell Distribution Width 15.5 % (11.5-14.5)
[2017-03-14 01:33] LABS: INR 1.1
[2017-03-14 01:35] LABS: Activated Partial Thrombo Time 28.8 Seconds (26.0-36.0)
[2017-03-14] MEDS: Heparin 25,000 UNIT/500 ML D5W 25,000 UNIT/500 ML MLS IVC SCH (01:43)
[2017-03-14] MEDS: Vancomycin 1,000 MG in D5% in Water 250 ML IVPB SCH ×2 (03:48→17:08)
[2017-03-14] MEDS: *HR* OxyCODONE/APAP 10/325 TABLET PO PRN ×3 (03:56→22:08)
[2017-03-14 06:57] LABS: Basophils % 0.1 %; Hemoglobin 11.7 g/dL (12.9-16.9); Immature Granulocytes % 0.7 % (0-4); Lymphocytes # 0.8 K/mcL (0.6-4.6); Lymphocytes % 4.4 %; Mean Corpuscular HGB Conc 31.6 g/dL (31.6-35.5); Mean Corpuscular Hemoglobin 28.9 pg (28.0-33.3); Mean Corpuscular Volume 91.4 fL (83.0-100.0); Mean Platelet Volume 9.1 fL (9.4-12.4); Monocytes # 0.6 K/mcL (0.0-1.3); Neutrophils # 16.8 K/mcL (1.6-8.9); Platelet Count 318 K/mcL (140-400); Red Blood Count 4.05 M/mcL (4.19-5.50); Red Cell Distribution Width 15.6 % (11.5-14.5); Segmented Neutrophils % 91.8 %
[2017-03-14 06:59] LABS: Alanine Aminotransferase 16 Units/L (0-55); Albumin/Globulin Ratio 0.5 (1.1-2.2); Alkaline Phosphatase 58 Units/L (38-126); Aspartate Amino Transferase 20 Units/L (5-34); BUN/Creatinine Ratio 12 (6-26); Bilirubin,Total 0.2 mg/dL (0.2-1.2); Blood Urea Nitrogen 10 mg/dL (8-26); Calcium 8.9 mg/dL (8.6-10.8); Carbon Dioxide 25 mEq/L (19-29); Chloride 107 mEq/L (98-109); Globulin 4.9 g/dL (2.4-3.5); Glucose 172 mg/dL (70-99); Osmolality,Calculated 293 (280-300); Sodium 140 mEq/L (136-145); Total Protein 7.4 g/dL (6.0-8.3); eGFR For African Americans > 60 (> 60); eGFR For Non-African Americans > 60 (> 60)
[2017-03-14 07:01] LABS: Albumin 2.5 g/dL (3.5-5.0); Potassium 5.2 mEq/L (3.5-4.5)
[2017-03-14] MEDS: Famotidine 20 MG TABLET PO SCH (08:06)
[2017-03-14] MEDS: Gabapentin 300 MG CAPSULE PO SCH ×3 (08:07→22:08)
[2017-03-14] MEDS: Aspirin 81 MG TAB.CHEW PO SCH (08:07)
--- NOTE | 2017-03-14 08:26 | Internal Med Progress Note ---
<Bozena Banuelos - Last Filed: 03/14/17 14:06> Date of Encounter: 03/14/17 Time of Encounter: 08:22 - Assessment and plan (1) Elevated troponin Current Visit: Yes Status: Acute Assessment and plan: Patient with single episode of chest pain and discomfort yesterday evening. Patient describes the pain as heaviness and tightness. Serial troponins ordered last night show elevated of troponin to 1.2. Cardiology saw patient this morning and is calling this possible demand ischemia secondary to sepsis and PNA as patient's pain totally relieved after receiving his home GERD medications. Cardiology is following patient, we will follow their recommendations including the addition of a beta lily and inpatient workup for cardiac ischemia. (2) Anemia Current Visit: Yes Status: Acute Assessment and plan: Patients hemoglobin trending down to 10.9 from 13.5 on admission. We will recheck hemoglobin at 1pm. Qualifiers: Anemia type: unspecified type Qualified Code(s): D64.9 - Anemia, unspecified (3) Sepsis Current Visit: Yes Status: Acute Assessment and plan: Patient was admitted for presumed sepsis secondary to tachycardia, hypotension, leukocysotis, and chest CT finding of resolving PNA. Leukocytosis may be explained by chronic steroid therapy. Patient has been afebrile with normal lactate. Patient has resolving PNA which is being treated with cefepime and vanc due to recent hospitalization. Qualifiers: Sepsis type: sepsis due to unspecified organism Qualified Code(s): A41.9 - Sepsis, unspecified organism (4) Abdominal pain Current Visit: Yes Status: Acute Assessment and plan: Patient presented to the emergency department with abdominal pain beyond proportion of exam. Lactic acid is within normal limits. CT of the abdomen and pelvis shows no acute abnormality. While patient was at risk for bowel ischemia or mesenteric ischemia due to his history of atrial fibrillation, we are minimally concerned at this time. Patient is resting comfortably. Qualifiers: Abdominal location: epigastric Qualified Code(s): R10.13 - Epigastric pain (5) Pneumonia Current Visit: Yes Status: Acute Assessment and plan: As per above sepsis. CT shows resolving PNA of lower lobes. Will treat as healthcare associated PNA due to recent hospitalization. Qualifiers: Pneumonia type: due to unspecified organism Laterality: left Lung location: lower lobe of lung Qualified Code(s): J18.1 - Lobar pneumonia, unspecified organism (6) Leukocytosis Current Visit: Yes Status: Acute Assessment and plan: Most likely due to chronic steroid therapy as patient is afebrile and well- appearing. Could be part of resolution of healthcare-associated PNA. WBC elevated but stable. Qualifiers: Leukocytosis type: unspecified Qualified Code(s): D72.829 - Elevated white blood cell count, unspecified (7) Afib Current Visit: Yes Status: Chronic Assessment and plan: Patient in RVR at time of presentation. RVR could be from pain or secondary to infection/sepsis. We will continue home medications for now. Patient in not on anticoagulation due to CHADs score of 0. Cardiology now stating patient must be a CHADS of 2 as he has been hypertensive during his hospital course. They are treating tachycardia with a beta lily. We will follow their recommendations. Qualifiers: Atrial fibrillation type: paroxysmal Qualified Code(s): I48.0 - Paroxysmal atrial fibrillation (8) CAD (coronary artery disease) Current Visit: Yes Status: Chronic Assessment and plan: Will monitor troponin. Patient had epigastric pain upon admission, no longer in distress. EKG shows no changes. ECHO shows normal ejection fraction, yet LVH. Cardiology will order stress testing prior to discharge, and after resolution of patient's sepsis and PNA. Qualifiers: Coronary Disease-Associated Artery/Lesion type: [place] artery [place] vs. transplanted heart: [place] heart Associated angina: without angina Qualified Code(s): I25.10 - Atherosclerotic heart disease of [place] coronary artery without angina pectoris (9) GERD (gastroesophageal reflux disease) Current Visit: Yes Status: Chronic Assessment and plan: Will start patient on pepcid as he was having abdominal pain yesterday with no clear etiology. As he is being treated with antibiotics, we will do pepcid over protonix. Qualifiers: Esophagitis presence: esophagitis presence not specified Qualified Code(s) : K21.9 - Gastro-esophageal reflux disease without esophagitis (10) HLD (hyperlipidemia) Current Visit: Yes Status: Chronic Qualifiers: Hyperlipidemia type: unspecified Qualified Code(s): E78.5 - Hyperlipidemia , unspecified (11) HTN (hypertension) Current Visit: Yes Status: Chronic Assessment and plan: Patient hypotensive in the ER. He received one dose of diltiazem in the ER. Will consider resuming home medications tomorrow. Although patient does not have history of HTN, he has been hypertensive in hospital, and he shows LVH on echo. Will follow cardiology recommendations which include starting a beta lily. Qualifiers: Hypertension type: essential hypertension Qualified Code(s): I10 - Essential (primary) hypertension (12) Tobacco abuse Current Visit: Yes Status: Chronic - Subjective Interval history: 66 yo male with PMHx of atrial fibrillation, COPD with steroid dependency, CAD, HLD, HTN, valvular heart disease and GERD. Patient presented to ER with severe epigastric pain after being referred from [place] for afib with RVR. Patient was hypotensive with an elevated WBC. He was admitted for abdominal pain, sepsis, PNA, leukocytosis, and afib. Overnight, patient had an elevated troponin that continued to trend up to 1.1. He was started on a low dose heparin drip. Patient states his chest pain yesterday felt like a tightness in his chest that thumped. He said it felt like his chest was being squeezed. Coughing made it worse, so he said he has been trying not to cough. He said his chest pain has resolved since then. He denies any abdominal pain, chest pain, or shortness of air currently, however, he does complain of orthopnea during ECG examination. He has not had any diarrhea, constipation, hematochezia, melana, hematuria, or dysuria. - Constitutional Vitals: Temp Pulse Resp BP Pulse Ox 97.9 F 89 16 146/88 97 03/14/17 07:55 03/14/17 08:15 03/14/17 07:55 03/14/17 07:55 03/14/17 07:55 General appearance: Present: cooperative, A&O X 3, pleasant - Head Head exam: Present: atraumatic, normal inspection, normocephalic - Respiratory Respiratory exam: Present: CTAB. Absent: rales, rhonchi, wheezes - Cardiovascular Cardiovascular exam: Present: RRR. Absent: diastolic murmur, distant heart sounds, gallop, JVD, systolic murmur - GI/Abdominal GI/Abdominal exam: Present: soft. Absent: firm, guarding, tenderness - Extremities Exam Extremities exam: Present: normal capillary refill, radial pulses palpable and symmetrical. Absent: calf tenderness, pedal edema, tenderness - Skin Skin exam: Present: dry, warm Internal Medicine: Result - Labs CBC & Chem 7: 03/14/17 13:00 03/14/17 06:25 Labs: Short CBC 03/14/17 03/14/17 Range/Units 00:31 06:25 WBC 16.7 H 18.3 H (4.3-11.1) K/mcL Hgb 10.9 L 11.7 L (12.9-16.9) g/dL Hct 34.5 L 37.0 L (37.5-50.1) % Plt Count 292 318 (140-400) K/mcL Neutrophils # 16.8 H (1.6-8.9) K/mcL BMP 03/14/17 06:25 Sodium 140 Potassium 5.2 H D Chloride 107 Carbon Dioxide 25 BUN 10 Creatinine 0.82 Glucose 172 H Calcium 8.9 Cardiac Enzymes 03/13/17 03/13/17 03/14/17 Range/Units 16:52 22:24 06:25 Troponin I 0.01 0.28 H* 1.10 H* (0-0.03) ng/mL Liver Function 03/14/17 Range/Units 06:25 Total Bilirubin 0.2 (0.2-1.2) mg/dL AST 20 (5-34) Units/L ALT 16 (0-55) Units/L Alkaline Phosphatase 58 (38-126) Units/L Albumin 2.5 L D (3.5-5.0) g/dL - ABG Interpretation ABG results: PT/INR, D-dimer PT 12.0 Seconds (9.4-12.1) 03/14/17 00:31 Consult Discharge Plan - Plan [facility]Primary Care Provider[facility] - 03/24/17 1:30 pm <Edy Bach - Last Filed: 03/15/17 07:55> Date of Encounter: 03/14/17 - Constitutional Vitals: Temp Pulse Resp BP Pulse Ox 97.8 F 75 19 155/80 95 03/15/17 04:06 03/15/17 04:06 03/15/17 04:06 03/15/17 04:06 03/15/17 04:06 Internal Medicine: Result - Labs CBC & Chem 7: 03/15/17 04:40 03/15/17 04:40 Labs: Short CBC 03/14/17 03/15/17 Range/Units 13:00 04:40 WBC 19.0 H 20.8 H (4.3-11.1) K/mcL Hgb 11.4 L 12.4 L (12.9-16.9) g/dL Hct 35.8 L 40.7 (37.5-50.1) % Plt Count 303 390 (140-400) K/mcL Neutrophils # 17.6 H 19.2 H (1.6-8.9) K/mcL BMP 03/15/17 04:40 Sodium 139 Potassium 4.4 Chloride 103 Carbon Dioxide 26 BUN 14 Creatinine 0.82 Glucose 126 H Calcium 9.3 Cardiac Enzymes 03/14/17 03/14/17 Range/Units 08:14 14:37 Troponin I 1.31 H* 1.55 H* (0-0.03) ng/mL - ABG Interpretation ABG results: PT/INR, D-dimer PT 12.0 Seconds (9.4-12.1) 03/14/17 00:31 - Impressions Impressions Echocardiogram 03/13/17 03:35 Impressions: LVEF 60%. Normal left ventricular size and systolic function. There is evidence of mild diastolic dysfunction of the left ventricle. Normal right ventricular size and function. No significant valvular dysfunction. Lack of TR signal to estimate RVSP. IVC lacks respiratory collapse suggesting mild elevation of RA pressure. Left Ventricular Wall Motion: Rest Echo Findings All wall segments showed normal motion. Findings: Study Quality * Technically adequate exam. ECG Findings * Normal sinus rhythm. Left Ventricle * LVEF 60%. * Normal LV chamber size, wall thickness and function. * Mild left ventricular diastolic dysfunction. Aorta * Normally sized aortic root. Aortic Valve * No aortic regurgitation. * Aortic valve not well visualized. * No aortic stenosis. Mitral Valve * Normal mitral valve structure. * No mitral regurgitation. * No mitral stenosis. Tricuspid Valve * No tricuspid regurgitation. * Normal tricuspid valve structure. * Estimated RA pressure is 8 mmHg. Pulmonic Valve * Pulmonic valve is not well visualized. * No pulmonic stenosis. * No pulmonic regurgitation. Pulmonary Artery * Pulmonary artery not well visualized. Right Ventricle * Normal right ventricular structure and function. Left Atrium * Normal left atrial size. Right Atrium * Normal right atrial size. Pericardium * There is no pericardial effusion present. Interatrial Septum * No evidence of PFO by color Doppler. IVC * The IVC is not dilated. * < 50% respiratory change. - Attending Attestation I examined this patient and my medical decision-making was reviewed with the Resident Physician, Dr. Banuelos. I agree with the documented findings, disposition and treatment plan as described except to the extent set forth below. I have independently obtained history and examined the patient and my findings are summarized below: The patient's chest pain has resolved. He has been afebrile and normotensive. Lung exam reveals fine expiratory wheezes and rhonchi. Plan: Continue with IV antibiotics for pneumonia. Follow-up with cardiology regarding and basic ischemic workup for non-ST elevation CA. Continue with heparin drip per ACS protocol. He is at high risk for morbidity, mortality and complications due to continuous intravenous heparin infusion which requires intensive monitoring of coagulation parameters.
[2017-03-14] MEDS: *HR* Heparin 5,000 UNIT/ML VIAL IVP PRN ×2 (09:13→16:36)
--- NOTE | 2017-03-14 09:22 | Cardiology Consult Note ---
<Jose David Wong R - Last Filed: 03/14/17 09:51> Date of Encounter: 03/14/17 Time of Encounter: 09:22 Assessment and Plan (1) Elevated troponin Current Visit: Yes Status: Acute Troponin negative x 2, then 0.28, 0.03, 1.10, 1.31. This is in the setting of sepsis, resolving PNA on chest CT, possible fungal infection (ruling out TB), A- Fib RVR on presentation. Will trend another troponin since still uptrending. At this time, suspect demand ischemia secondary to above. Nondiagnostic for ACS. Pt reports single episode of chest tightness yesterday that he attributes to not receiving reflux meds. Once meds were given, pain resolved without recurrence. Risk factors for CAD include tobacco abuse, family hx (sister with PCI age 50), HLD, HTN as evidenced by BP while inpt and LVH on EKG. Pt denies any hx of CAD or any prior LHC. Echo shows EF 60%, normal wall motion, no significant valvular dysfunction. Await TB rule out. If negative, will recommend stress test while inpt for ischemic evaluation. Continue heparin gtt for now. On ASA and statin. Will start low dose BB. (2) PAF (paroxysmal atrial fibrillation) Current Visit: Yes Status: Chronic Known hx of PAF, not on anticoagulation due to low CHADSVASC. However, CHADSVASC is likely a 2 (Age, HTN). Per pt, no hx of HTN, but evidence of LVH on EKG and BP has been as high as 160/87 during inpt stay. Currently SR. Add low dose BB. Echo EF preserved with no significant valvular dysfunction. Currently on heparin gtt. Will need to determine long term care phlebotomist anticoagulation once TB issue is resolved/ruled out and once ischemic evaluatioon is completed (plan for stress test). Discussion w patient/family: The assessment and plan as outlined above was discussed with the patient and/or family members who expressed understanding and agreement. All questions were answered. Thank you for involving us in the care of your patient. Please call with any questions. I will discuss all the above with Dr. Floyd and make changes as necessary. History of Present Illness Consult date: 03/14/17 Requesting physician: Dash Hodge Consult reason: Elevated troponin Chief complaint: abdominal pain History of present illness: Mr. Bai is a 66 year old male with PMH of PAF, COPD, GERD, HLD, tobacco abuse that presented to the ER with abdominal pain, epigastric in location, severe, 10/10 with associated diaphoresis. [facility] Yesterday, pt reported chest tightness. Per pt, he had not had his reflux meds in 24 hours. He tells me the chest tightness felt like his GERD symptoms and resolved after his reflex meds were given. No recurrence. He is currently being treated for sepsis and TB is being ruled out. Troponins negative x 2, then 0.28, 0.03, 1.10, 1.31. Pt denies any history of CAD, has never had a LHC. Pt also denies hx of valvular heart disease which is listed in hx. Pt denies HTN, was not on any antihypertensives at home, but BP as high as 160/87 during stay. Echo reviewed that was completed 03/13/17--EF 60%, mild LVDD , no significant valvular dysfunction. Normal wall motion. Past Med Surg Social Fam HX - Past Medical History Medical history: atrial fibrillation, COPD, fibromyalgia, GERD, hyperlipidemia, hypertension Psychiatric history: anxiety, depression - Past Surgical History Surgical History: appendectomy, other - Social History Smoking Status: Current every day smoker Packs per day: 0.5 Smokeless Tobacco Status: No Alcohol use: none Drug use: none - Family History Sister Family Member Ethnicity: Non- Living Status: Still Living Hx Family Cardiac Disorders: Yes (HD) Hx Family Respiratory Disorders: No Hx Family Cancer: Yes (Breast) Hx Family GI Disorders: No Hx Family Endocrine Disorder: No Hx Family Neuromuscular Disorders: No Hx Family Neurologic Disorders: No Hx Family HEENT Disorders: No Hx Family Autoimmune Disorders: No Brother Family Member Ethnicity: Non- Living Status: Still Living Mother Family Member Ethnicity: Non- Living Status: Father Family Member Ethnicity: Non- Living Status: Hx Family Cancer: Yes (Bladder) Medications and Allergies Albuterol Neb [Proventil Neb] 2.5 mg IH TID 02/19/17 [History] Albuterol Sulfate [Albuterol Inhaler] 2 puff IH Q6H PRN 02/19/17 [History] Alendronate Sodium [Fosamax] 70 mg PO WE 02/19/17 [History] Alprostadil [[place]] 500 mcg UR AD PRN 02/19/17 [History] Atorvastatin [Lipitor] 40 mg PO HS 02/19/17 [History] Budesonide/Formoterol 160/4.5 [Symbicort 160/4.5] 2 puff IH BIDR 02/19/17 [ History] Cetirizine HCl [All Day Allergy] 10 mg PO DAILY 02/19/17 [History] Diclofenac Sodium [Voltaren] 1 appl TP BID 02/19/17 [History] Gabapentin [Neurontin] 900 mg PO TID 02/19/17 [History] Melatonin 10 mg PO HS PRN 02/19/17 [History] Omeprazole [PriLOSEC] 20 mg PO DAILY 02/19/17 [History] Oxycodone HCl/Acetaminophen [Percocet 10-325 mg Tablet] 1 each PO 5XD PRN [History] Potassium Chloride [K-Tab ER] 10 meq PO DAILY 02/19/17 [History] Theophylline Anhydrous [Oliver-24] 200 mg PO DAILY 02/19/17 [History] Verapamil HCl [Verapamil ER] 180 mg PO DAILY 02/19/17 [History] predniSONE [PredniSONE] 10 mg PO DAILY #0 02/22/17 [Rx] Nicotine Polacrilex [Nicotine Lozenge] 2 mg BC Q2H PRN 03/13/17 [History] 3 Allergy/AdvReac Type Severity Reaction Status Date / Time tiotropium Allergy Rash Verified 03/15/16 22:23 [From Spiriva with HandiHaler] bee stings AdvReac Anaphylaxis Uncoded 02/19/17 14:16 All Systems Review: A 10-system review of systems was performed and is negative for pertinent findings except as documented above in the HPI. - Cardiovascular Cardiovascular: as per HPI, chest pain at rest, dyspnea on exertion - Respiratory Respiratory: cough, dyspnea Physical Examination Vital Signs, Last 4 Hours Temp Pulse Resp BP Pulse Ox 03/14/17 08:15 89 03/14/17 07:55 97.9 F 83 16 146/88 97 Vital Signs Temp Pulse Resp BP Pulse Ox 03/14/17 08:15 89 03/14/17 07:55 97.9 F 83 16 146/88 97 03/14/17 04:08 12 98 03/14/17 03:57 98.0 F 87 16 140/77 94 03/14/17 00:02 12 95 03/13/17 23:34 97.8 F 83 19 143/82 95 03/13/17 20:40 16 94 03/13/17 20:05 98.0 F 86 20 160/87 95 03/13/17 16:25 98.1 F 104 22 140/72 96 03/13/17 16:01 16 97 03/13/17 13:40 85 Intake and Output 03/13/17 03/14/17 03/14/17 23:59 07:59 15:59 Intake Total 350 / 350 250 / 250 200 / 200 Output Total 500 / 500 675 / 675 Balance -150 / -150 -425 / -425 200 / 200 Intake: IV Fluids 350 / 350 250 / 250 200 / 200 Heparin 25,000 UNIT/500 ML D5W 100 / 100 25,000 unit In 500 ml @ 12 UNIT /KG/HR 16.512 mls/hr IVC .Q24H NATALYA Rx#:[id number] Maxipime 1,000 MG In Dextrose 5 100 / 100 100 / 100 100 / 100 % (Minibag+) 100 ML 100 ML @ 200 mls/hr IVPB Q8HR NATALYA Rx#: [id number] Levaquin Premix 750mg/150 mL 150 / 150 750 mg In 150 ml @ 100 mls/hr IVPB Q24H NATALYA Rx#:[id number] Vancocin 1,000 MG In Dextrose 5 250 / 250 % 250 ML @ 166.667 mls/hr IVPB Q12H NATALYA Rx#:[id number] Output: Urine 500 / 500 675 / 675 Other: Meal Dinner Percent of Meal Consumed 10% Weight 69.6 kg Patient Weight 03/14/17 23:59 Weight 69.6 kg General: Conversant, No Apparent Distress HEENT: Atraumatic, Normocephaly, Mucus Membranes Moist Neck: No JVD, Normal carotid pulses Cardiac: Reg Rate and Rhythm, Normal S1 and S2, No Murmur Lungs: Other (coarse, rhonchi) Neuro: Alert and responsive, No focal deficits noted Abdomen: Soft, Non-Tender Skin: No rashes noted on visualized skin Musculoskeletal: No Chest Wall Tenderness Extremities: No Clubbing, No Cyanosis, No Edema, Normal Pulses Results 03/14/17 06:25 03/14/17 06:25 Lab Results 03/13/17 03/13/17 03/14/17 16:52 22:24 00:31 WBC 16.7 H Hgb 10.9 L Hct 34.5 L Plt Count 292 INR APTT Sodium Potassium Chloride Carbon Dioxide BUN Creatinine Glucose Calcium Total Bilirubin AST ALT Alkaline Phosphatase Troponin I 0.01 0.28 H* 03/14/17 03/14/17 03/14/17 00:31 06:25 06:25 WBC 18.3 H Hgb 11.7 L Hct 37.0 L Plt Count 318 INR 1.1 APTT 28.8 Sodium 140 Potassium 5.2 H D Chloride 107 Carbon Dioxide 25 BUN 10 Creatinine 0.82 Glucose 172 H Calcium 8.9 Total Bilirubin 0.2 AST 20 ALT 16 Alkaline Phosphatase 58 Troponin I 03/14/17 03/14/17 03/14/17 06:25 07:59 08:14 WBC Hgb Hct Plt Count INR APTT 50.1 H D Sodium Potassium Chloride Carbon Dioxide BUN Creatinine Glucose Calcium Total Bilirubin AST ALT Alkaline Phosphatase Troponin I 1.10 H* 1.31 H* Short CBC 03/14/17 03/14/17 Range/Units 06:25 00:31 WBC 18.3 H 16.7 H (4.3-11.1) K/mcL Hgb 11.7 L 10.9 L (12.9-16.9) g/dL Hct 37.0 L 34.5 L (37.5-50.1) % Plt Count 318 292 (140-400) K/mcL Neutrophils # 16.8 H (1.6-8.9) K/mcL BMP 03/14/17 Range/Units 06:25 Sodium 140 (136-145) mEq/L Potassium 5.2 H D (3.5-4.5) mEq/L Chloride 107 (98-109) mEq/L Carbon Dioxide 25 (19-29) mEq/L BUN 10 (8-26) mg/dL Creatinine 0.82 (0.72-1.25) mg/dL Glucose 172 H (70-99) mg/dL Calcium 8.9 (8.6-10.8) mg/dL Cardiac Enzymes 0903/14/17 03/13/17 Range/Units 08:14 06:25 22:24 Troponin I 1.31 H* 1.10 H* 0.28 H* (0-0.03) ng/mL 03/13/17 Range/Units 16:52 Troponin I 0.01 (0-0.03) ng/mL Liver Function 03/14/17 Range/Units 06:25 Total Bilirubin 0.2 (0.2-1.2) mg/dL AST 20 (5-34) Units/L ALT 16 (0-55) Units/L Alkaline Phosphatase 58 (38-126) Units/L Albumin 2.5 L D (3.5-5.0) g/dL Impressions Echocardiogram 03/13/17 03:35 Impressions: LVEF 60%. Normal left ventricular size and systolic function. There is evidence of mild diastolic dysfunction of the left ventricle. Normal right ventricular size and function. No significant valvular dysfunction. Lack of TR signal to estimate RVSP. IVC lacks respiratory collapse suggesting mild elevation of RA pressure. Left Ventricular Wall Motion: Rest Echo Findings All wall segments showed normal motion. Findings: Study Quality * Technically adequate exam. ECG Findings * Normal sinus rhythm. Left Ventricle * LVEF 60%. * Normal LV chamber size, wall thickness and function. * Mild left ventricular diastolic dysfunction. Aorta * Normally sized aortic root. Aortic Valve * No aortic regurgitation. * Aortic valve not well visualized. * No aortic stenosis. Mitral Valve * Normal mitral valve structure. * No mitral regurgitation. * No mitral stenosis. Tricuspid Valve * No tricuspid regurgitation. * Normal tricuspid valve structure. * Estimated RA pressure is 8 mmHg. Pulmonic Valve * Pulmonic valve is not well visualized. * No pulmonic stenosis. * No pulmonic regurgitation. Pulmonary Artery * Pulmonary artery not well visualized. Right Ventricle * Normal right ventricular structure and function. Left Atrium * Normal left atrial size. Right Atrium * Normal right atrial size. Pericardium * There is no pericardial effusion present. Interatrial Septum * No evidence of PFO by color Doppler. IVC * The IVC is not dilated. * < 50% respiratory change. Active Medications Acetaminophen (Tylenol) 650 mg PO Q6HR PRN PRN Reason: Mild Pain (1-3) Stop: 09/12/17 02:15 Albuterol Sulfate (Proventil Neb) 2.5 mg IH Q2H PRN; Protocol PRN Reason: SOB/WHEEZING Stop: 09/12/17 04:01 Albuterol/Ipratropium (Duoneb) 3 ml IH [id number] [facility] Stop: 09/12/17 04:01 Last Admin: 03/14/17 08:02 Dose: 3 ml Aspirin (Aspirin) 81 mg PO DAILY [facility] Stop: 09/12/17 16:46 Last Admin: 03/14/17 08:07 Dose: 81 mg Atorvastatin Calcium (Lipitor) 40 mg PO HS [facility] Stop: 09/12/17 21:01 Last Admin: 03/13/17 21:48 Dose: 40 mg Famotidine (Pepcid) 20 mg PO BID [facility]ALYA PRN Reason: Protocol Stop: 09/12/17 17:28 Last Admin: 03/14/17 08:06 Dose: 20 mg Gabapentin (Neurontin) 300 mg PO TID [facility] Stop: 09/12/17 09:01 Last Admin: 03/14/17 08:07 Dose: 300 mg Heparin Sodium (Porcine) (Heparin) 4,000 unit IVP Q6HR PRN PRN Reason: SEE COMMENTS Stop: 09/12/17 23:06 Heparin Sodium (Porcine) (Heparin) 2,000 unit IVP Q6H PRN PRN Reason: SEE COMMENTS Stop: 09/12/17 23:06 Last Admin: 03/14/17 09:13 Dose: 2,000 unit Hydromorphone HCl (Dilaudid) 0.5 mg IVP Q4HR PRN PRN Reason: Severe Pain (7-10) Stop: 09/12/17 02:15 Last Admin: 03/13/17 03:19 Dose: 0.5 mg Levofloxacin/Dextrose (Levaquin Premix 750mg/150 Ml) 750 mg in 150 mls @ 100 mls/hr IVPB Q24H [facility]ALYA PRN Reason: Protocol Stop: 09/12/17 22:01 Last Infusion: 03/14/17 03:46 Dose: Infused Cefepime HCl 1,000 mg/ (Dextrose) 100 mls @ 200 mls/hr IVPB Q8HR [facility] Stop: 09/12/17 08:01 Last Infusion: 03/14/17 09:01 Dose: Infused Vancomycin HCl 1,000 mg/ (Dextrose) 250 mls @ 166.667 mls/hr IVPB Q12H [facility] Stop: 09/12/17 04:01 Last Admin: 03/14/17 03:48 Dose: 166.7 mls/hr Heparin Sodium/Dextrose (Heparin 25,000 Unit/500 Ml D5w) 25,000 unit in 500 mls @ 16.512 mls/hr IVC .Q24H NATALYA; 12 UNIT/KG/HR PRN Reason: Protocol Stop: 09/12/17 23:16 Last Titration: 03/14/17 09:09 Dose: 14 unit/kg/hr, 19.264 mls/hr Melatonin (Melatonin) 9 mg PO HS [facility] Stop: 09/12/17 21:01 Last Admin: 03/13/17 21:48 Dose: 9 mg Methylprednisolone (Solu-Medrol) 40 mg IVP Q8H [facility] Stop: 09/12/17 16:01 Last Admin: 03/14/17 08:07 Dose: 40 mg Naloxone HCl (Narcan) 0.4 mg IVP Q2MIN PRN PRN Reason: Opioid Reversal Stop: 09/12/17 02:15 Oxycodone/Acetaminophen (Percocet 10/325) 1 each PO 5XD PRN PRN Reason: Pain Stop: 09/12/17 18:03 Last Admin: 03/14/17 03:56 Dose: 1 each - Imaging and Cardiology Echo: report reviewed - EKG Interpretation EKG results cardiology: personally reviewed, other (12 hr tele AVG HR 88, currently SR.) Consult Discharge Plan - Plan [facility] Provider[facility] - 03/24/17 1:30 pm <Marcos Floyd - Last Filed: 03/14/17 11:09> Date of Encounter: 03/14/17 Assessment and Plan Discussion w patient/family: The assessment and plan as outlined above was discussed with the patient and/or family members who expressed understanding and agreement. All questions were answered. Thank you for involving us in the care of your patient. Please call with any questions. History of Present Illness History of present illness: Mr. Bai is a 66 year old male All Systems Review: A 10-system review of systems was performed and is negative for pertinent findings except as documented above in the HPI. Physical Examination Vital Signs, Last 4 Hours Temp Pulse Resp BP Pulse Ox 03/14/17 08:15 89 03/14/17 07:55 97.9 F 83 16 146/88 97 Results 03/14/17 06:25 03/14/17 06:25 Lab Results 03/13/17 03/13/17 03/14/17 16:52 22:24 00:31 WBC 16.7 H Hgb 10.9 L Hct 34.5 L Plt Count 292 INR APTT Sodium Potassium Chloride Carbon Dioxide BUN Creatinine Glucose Calcium Total Bilirubin AST ALT Alkaline Phosphatase Troponin I 0.01 0.28 H* 03/14/17 03/14/17 03/14/17 00:31 06:25 06:25 WBC 18.3 H Hgb 11.7 L Hct 37.0 L Plt Count 318 INR 1.1 APTT 28.8 Sodium 140 Potassium 5.2 H D Chloride 107 Carbon Dioxide 25 BUN 10 Creatinine 0.82 Glucose 172 H Calcium 8.9 Total Bilirubin 0.2 AST 20 ALT 16 Alkaline Phosphatase 58 Troponin I 03/14/17 03/14/17 03/14/17 06:25 07:59 08:14 WBC Hgb Hct Plt Count INR APTT 50.1 H D Sodium Potassium Chloride Carbon Dioxide BUN Creatinine Glucose Calcium Total Bilirubin AST ALT Alkaline Phosphatase Troponin I 1.10 H* 1.31 H* - Attending Attestation Pt seen and examined independently, chart reviewed, essentially agree with above, my evaluation as follows: CC: Shortness of breath Pt reports three month history of recurrent episodes of shortness of breath, productive cough on and off, with three hospitalizations in [facility] two months. He has been through at least three courses of antibiotics, which improve cough and reduce shortness of breath , but symptoms come back when he finishes the course of Ab. He also complains of heart racing and skipping, worsens with coughing and shortness of breath, lasts several miniutes, resolves with rest. He has an extensive hx of PAF with RVR, has not been on systemic anticoagulation due to low [id number] score. He denies symptoms of chest pain or pressure with exertion. He is resting comfortably at present. PE: Agree with above IMP/Plan 1. Elevated troponin of unclear significance, will schedule stress imaging when TB is ruled out, probably Wed. Would continue systemic anticoagulation with heparin for now. 2. PAF - maintaining NSR on current meds. 3. COPD, improved, off cigs x 48 hours, continue to encourage smoking cessation at hospital discharge, was able to decrease tobacco usage on Wellbutrin, may be candidate to resume at discharge. 4. RICARDA - untreated, has [facility], after initial screening study at home was positive.
[2017-03-14 13:57] LABS: Basophils % 0.1 %; Hematocrit 35.8 % (37.5-50.1); Hemoglobin 11.4 g/dL (12.9-16.9); Immature Granulocytes % 0.5 % (0-4); Lymphocytes # 0.7 K/mcL (0.6-4.6); Lymphocytes % 3.7 %; Mean Corpuscular HGB Conc 31.8 g/dL (31.6-35.5); Mean Corpuscular Hemoglobin 29.2 pg (28.0-33.3); Mean Corpuscular Volume 91.6 fL (83.0-100.0); Mean Platelet Volume 9.3 fL (9.4-12.4); Monocytes # 0.5 K/mcL (0.0-1.3); Monocytes % 2.6 %; Neutrophils # 17.6 K/mcL (1.6-8.9); Platelet Count 303 K/mcL (140-400); Red Blood Count 3.91 M/mcL (4.19-5.50); Red Cell Distribution Width 15.7 % (11.5-14.5); Segmented Neutrophils % 93.1 %
--- NOTE | 2017-03-14 19:16 | Electrocardiograph Report ---
[address] [address] Test Date: 2017-03-13 Pat Name: Emmanuel Bai Department: 110 Room: 2N09 Gender: M Management Manager: [id number] : 1950 Requested By: Edy Bach Order Number: [id number] Reading MD: Roz Thomas Measurements Intervals [place] Rate: 96 P: 78 ME: 177 QRS: 92 QRSD: 102 T: 89 QT: 339 QTc: 392 Interpretive Statements SINUS RHYTHM LEFT ATRIAL ENLARGEMENT BORDERLINE RIGHT AXIS DEVIATION INCOMPLETE RIGHT BUNDLE BRANCH BLOCK NONSPECIFIC ST & T-WAVE ABNORMALITY Electronically Signed On 03-14-2017 19:15:24 EDT by Roz Thomas
--- NOTE | 2017-03-14 20:27 | Electrocardiograph Report ---
[place] [address] Test Date: 2017-03-14 Pat Name: Emmanuel Bai Department: 110 Room: 2N09 Gender: M Design Lead: : 1950 Requested By: Edy Bach Order Number: [id number] Reading MD: Roz Thomas Measurements Intervals [place] Rate: 87 P: 81 GA: 139 QRS: 87 QRSD: 98 T: 74 QT: 367 QTc: 412 Interpretive Statements SINUS RHYTHM POSSIBLE RIGHT VENTRICULAR CONDUCTION DELAY Electronically Signed On 03-14-2017 20:26:15 EDT by Roz Thomas
[2017-03-14] MEDS: Levofloxacin 750 MG/150 ML 750 MG/150 ML BAG IVPB SCH (22:08)
[2017-03-14] MEDS: Melatonin 3 MG TABLET PO SCH (22:08)
[2017-03-15] MEDS: Cefepime HCl 1,000 MG in D5% in Water (Mini-Bag+) 100 ML IVPB SCH ×3 (00:35→15:20)
[2017-03-15] MEDS: MethylPREDNISolone 40 MG/ML VIAL IVP SCH ×2 (00:36→07:47)
[2017-03-15] MEDS: Ipratropium/Albuterol Neb 3 ML IH SCH ×8 (00:43→23:24)
[2017-03-15] MEDS: Vancomycin 1,000 MG in D5% in Water 250 ML IVPB SCH ×2 (04:22→16:41)
[2017-03-15] MEDS: *HR* OxyCODONE/APAP 10/325 TABLET PO PRN ×2 (04:23→18:37)
[2017-03-15] MEDS: Heparin 25,000 UNIT/500 ML D5W 25,000 UNIT/500 ML MLS IVC SCH (04:24)
[2017-03-15 05:05] LABS: Basophils % 0.1 %; Hematocrit 40.7 % (37.5-50.1); Hemoglobin 12.4 g/dL (12.9-16.9); Immature Granulocytes % 1.1 % (0-4); Lymphocytes % 4.6 %; Mean Corpuscular HGB Conc 30.5 g/dL (31.6-35.5); Mean Corpuscular Hemoglobin 27.8 pg (28.0-33.3); Mean Corpuscular Volume 91.3 fL (83.0-100.0); Monocytes # 0.4 K/mcL (0.0-1.3); Neutrophils # 19.2 K/mcL (1.6-8.9); Platelet Count 390 K/mcL (140-400); Red Blood Count 4.46 M/mcL (4.19-5.50); Red Cell Distribution Width 15.7 % (11.5-14.5); Segmented Neutrophils % 92.2 %
[2017-03-15 05:18] LABS: BUN/Creatinine Ratio 17 (6-26); Blood Urea Nitrogen 14 mg/dL (8-26); Calcium 9.3 mg/dL (8.6-10.8); Carbon Dioxide 26 mEq/L (19-29); Chloride 103 mEq/L (98-109); Glucose 126 mg/dL (70-99); Osmolality,Calculated 290 (280-300); Potassium 4.4 mEq/L (3.5-4.5); Sodium 139 mEq/L (136-145); eGFR For African Americans > 60 (> 60); eGFR For Non-African Americans > 60 (> 60)
[2017-03-15] MEDS: Aspirin 81 MG TAB.CHEW PO SCH (07:45)
[2017-03-15] MEDS: Gabapentin 300 MG CAPSULE PO SCH ×3 (07:45→21:25)
[2017-03-15] MEDS ORDERED: Tuberculin Skin Test (PPD) 5 TUB/0.1 ML VIAL ID ONE (10:04)
--- NOTE | 2017-03-15 10:31 | Event Note ---
Date of Encounter: 03/15/17 Time of Encounter: 10:28 - Cardiology Event Note Troponin uptrending--peak 1.55. Will check another troponin since continuing to uptrend. This is in setting of resolving PNA, sepsis, possible TB. Demand ischemia vs. NSTEMI. Continue heparin gtt for 24-48 hours, ASA, Statin, BB. TB still being ruled out, but given that troponin is uptrending, will continue to follow peripherally. If TB is ruled out (should know or Monday), then recommend proceed with [facility] given the elevated troponin and multiple risk factors for CAD--HTN, HLD, tobacco abuse, premature family hx. Continue to follow. Not a candidate for cardiac rehab currently given that TB is a differential. If ruled out, then will order cardiac rehab.
[2017-03-15] MEDS: hydroCHLOROthiazide 25 MG TABLET PO SCH (11:01)
[2017-03-15] MEDS: *HR* LORazepam 2 MG/ML VIAL IVP PRN (11:02)
[2017-03-15] MEDS: Nicotine 21 MG PATCH.TD24 TD SCH (11:02)
--- NOTE | 2017-03-15 17:36 | Internal Med Progress Note ---
<Bozena Banuelos - Last Filed: 03/15/17 17:46> Date of Encounter: 03/15/17 Time of Encounter: 10:00 - Assessment and plan (1) Elevated troponin Current Visit: Yes Status: Acute Assessment and plan: Demand ischemia vs NSTEMI. Heparin drip, ASA, statin, and BB. Will await TB testing results. If ruled out, then we will proceed with [facility]. (2) Sepsis Current Visit: Yes Status: Acute Assessment and plan: Patient was admitted for presumed sepsis secondary to tachycardia, hypotension, leukocysotis, and chest CT finding of resolving PNA. Leukocytosis may be explained by chronic steroid therapy. Patient has been afebrile with normal lactate. Day 3 of cefepime and vancomycin. Qualifiers: Sepsis type: sepsis due to unspecified organism Qualified Code(s): A41.9 - Sepsis, unspecified organism (3) Anemia Current Visit: Yes Status: Acute Assessment and plan: Patient's hemoglobin stable. Qualifiers: Anemia type: unspecified type Qualified Code(s): D64.9 - Anemia, unspecified (4) Abdominal pain Current Visit: Yes Status: Acute Assessment and plan: Abdominal pain has resolved with pepcid. Qualifiers: Abdominal location: epigastric Qualified Code(s): R10.13 - Epigastric pain (5) Pneumonia Current Visit: Yes Status: Acute Assessment and plan: As per above sepsis. CT shows resolving PNA of lower lobes. Will treat as healthcare associated PNA due to recent hospitalization. Qualifiers: Pneumonia type: due to unspecified organism Laterality: left Lung location: lower lobe of lung Qualified Code(s): J18.1 - Lobar pneumonia, unspecified organism (6) Leukocytosis Current Visit: Yes Status: Acute Assessment and plan: Most likely due to chronic steroid therapy as patient is afebrile and well- appearing. Could be part of resolution of healthcare-associated PNA. WBC elevated but stable. Qualifiers: Leukocytosis type: unspecified Qualified Code(s): D72.829 - Elevated white blood cell count, unspecified (7) HTN (hypertension) Current Visit: Yes Status: Chronic Assessment and plan: Patient now receiving a beta lily for HTN per cardiology. We started 25mg HCTZ today as well to bring pressures down. Qualifiers: Hypertension type: essential hypertension Qualified Code(s): I10 - Essential (primary) hypertension (8) CAD (coronary artery disease) Current Visit: Yes Status: Chronic Assessment and plan: Patient has multiple risk factors for CAD. Will proceed with [facility] after TB testing returns. Qualifiers: Coronary Disease-Associated Artery/Lesion type: [place] artery [place] vs. transplanted heart: [place] heart Associated angina: without angina Qualified Code(s): I25.10 - Atherosclerotic heart disease of [place] coronary artery without angina pectoris (9) Afib Current Visit: Yes Status: Chronic Assessment and plan: Patient in RVR at time of presentation. RVR could be from pain or secondary to infection/sepsis. We will continue home medications for now. Patient in not on anticoagulation due to CHADs score of 0. Cardiology now stating patient must be a CHADS of 2 as he has been hypertensive during his hospital course. They are treating tachycardia with a beta lily. We will follow their recommendations. Qualifiers: Atrial fibrillation type: paroxysmal Qualified Code(s): I48.0 - Paroxysmal atrial fibrillation (10) GERD (gastroesophageal reflux disease) Current Visit: Yes Status: Chronic Assessment and plan: Patient now receiving omeprazole. Qualifiers: Esophagitis presence: esophagitis presence not specified Qualified Code(s) : K21.9 - Gastro-esophageal reflux disease without esophagitis (11) HLD (hyperlipidemia) Current Visit: Yes Status: Chronic Qualifiers: Hyperlipidemia type: unspecified Qualified Code(s): E78.5 - Hyperlipidemia , unspecified (12) Tobacco abuse Current Visit: Yes Status: Chronic - Subjective Interval history: 66 yo male with PMHx of atrial fibrillation, COPD with steroid dependency, CAD, HLD, HTN, valvular heart disease and GERD. Patient presented to ER with severe epigastric pain after being referred from [place] for afib with RVR. Patient was hypotensive with an elevated WBC. He was admitted for abdominal pain, sepsis, PNA, leukocytosis, and afib. Patient is frustrated by the TB testing. He was irritable this morning and desired to go home. He denies any abdominal pain, chest pain, or shortness of air currently, however, he does complain of orthopnea. He has not had any diarrhea, constipation, hematochezia, melana, hematuria, or dysuria. - Constitutional Vitals: Temp Pulse Resp BP Pulse Ox 98.6 F 89 16 152/86 94 03/15/17 12:07 03/15/17 15:15 03/15/17 16:20 03/15/17 12:07 03/15/17 16:20 General appearance: Present: cooperative, A&O X 3 - Respiratory Respiratory exam: Present: CTAB. Absent: rales, rhonchi, stridor, wheezes - Cardiovascular Cardiovascular exam: Present: RRR. Absent: diastolic murmur, gallop, rubs, systolic murmur - GI/Abdominal GI/Abdominal exam: Present: soft. Absent: distended, firm, pulsatile mass, rigid - Extremities Exam Extremities exam: Absent: calf tenderness, pedal edema, tenderness - Skin Skin exam: Present: dry, rash, warm Internal Medicine: Result - Labs CBC & Chem 7: 03/15/17 04:40 03/15/17 04:40 Labs: Short CBC 03/15/17 Range/Units 04:40 WBC 20.8 H (4.3-11.1) K/mcL Hgb 12.4 L (12.9-16.9) g/dL Hct 40.7 (37.5-50.1) % Plt Count 390 (140-400) K/mcL Neutrophils # 19.2 H (1.6-8.9) K/mcL BMP 03/15/17 04:40 Sodium 139 Potassium 4.4 Chloride 103 Carbon Dioxide 26 BUN 14 Creatinine 0.82 Glucose 126 H Calcium 9.3 Cardiac Enzymes 03/15/17 Range/Units 12:12 Troponin I 0.76 H* (0-0.03) ng/mL - ABG Interpretation ABG results: PT/INR, D-dimer PT 12.0 Seconds (9.4-12.1) 03/14/17 00:31 Consult Discharge Plan - Plan [facility] - 03/24/17 1:30 pm <Edy Bach - Last Filed: 03/15/17 18:23> Date of Encounter: 03/15/17 - Constitutional Vitals: Temp Pulse Resp BP Pulse Ox 98.6 F 81 18 161/96 95 03/15/17 17:39 03/15/17 17:39 03/15/17 17:39 03/15/17 17:39 03/15/17 17:39 Internal Medicine: Result - Labs CBC & Chem 7: 03/15/17 04:40 03/15/17 04:40 Labs: Short CBC 03/15/17 Range/Units 04:40 WBC 20.8 H (4.3-11.1) K/mcL Hgb 12.4 L (12.9-16.9) g/dL Hct 40.7 (37.5-50.1) % Plt Count 390 (140-400) K/mcL Neutrophils # 19.2 H (1.6-8.9) K/mcL BMP 03/15/17 04:40 Sodium 139 Potassium 4.4 Chloride 103 Carbon Dioxide 26 BUN 14 Creatinine 0.82 Glucose 126 H Calcium 9.3 Cardiac Enzymes 03/15/17 Range/Units 12:12 Troponin I 0.76 H* (0-0.03) ng/mL - ABG Interpretation ABG results: PT/INR, D-dimer PT 12.0 Seconds (9.4-12.1) 03/14/17 00:31 - Attending Attestation I examined this patient and my medical decision-making was reviewed with the Resident Physician, Dr. Banuelos. I agree with the documented findings, disposition and treatment plan as described except to the extent set forth below. I have independently obtained history and examined the patient and my findings are summarized below: Patient is in no acute distress. Lung exam with bilateral wheezes and rhonchi. Heart is regular. Plan: Continue broad-spectrum IV antibiotics. Rule out TB due to bilateral apical cavitary lesions. Follow-up with cardiology regarding elevated troponin.
[2017-03-15] MEDS: Levofloxacin 750 MG/150 ML 750 MG/150 ML BAG IVPB SCH (21:22)
[2017-03-15] MEDS: Melatonin 3 MG TABLET PO SCH (21:24)
[2017-03-16] MEDS: Cefepime HCl 1,000 MG in D5% in Water (Mini-Bag+) 100 ML IVPB SCH ×3 (00:10→16:17)
[2017-03-16] MEDS: Heparin 25,000 UNIT/500 ML D5W 25,000 UNIT/500 ML MLS IVC SCH ×2 (00:45→21:06)
[2017-03-16] MEDS: Ipratropium/Albuterol Neb 3 ML IH SCH ×6 (03:25→22:18)
[2017-03-16] MEDS: Vancomycin 1,000 MG in D5% in Water 250 ML IVPB SCH (04:15)
[2017-03-16] MEDS: *HR* OxyCODONE/APAP 10/325 TABLET PO PRN ×4 (04:15→21:05)
[2017-03-16 06:01] LABS: Basophils % 0.2 %; Eosinophils # 0.1 K/mcL (0.0-0.6); Eosinophils % 0.7 %; Hematocrit 43.8 % (37.5-50.1); Hemoglobin 13.6 g/dL (12.9-16.9); Lymphocytes # 4.1 K/mcL (0.6-4.6); Lymphocytes % 25.7 %; Mean Corpuscular HGB Conc 31.1 g/dL (31.6-35.5); Mean Corpuscular Hemoglobin 27.9 pg (28.0-33.3); Mean Corpuscular Volume 89.9 fL (83.0-100.0); Mean Platelet Volume 9.1 fL (9.4-12.4); Monocytes # 1.4 K/mcL (0.0-1.3); Monocytes % 8.6 %; Neutrophils # 10.2 K/mcL (1.6-8.9); Platelet Count 370 K/mcL (140-400); Red Blood Count 4.87 M/mcL (4.19-5.50); Red Cell Distribution Width 15.6 % (11.5-14.5); Segmented Neutrophils % 63.8 %
[2017-03-16 06:07] LABS: BUN/Creatinine Ratio 17 (6-26); Blood Urea Nitrogen 17 mg/dL (8-26); Calcium 9.6 mg/dL (8.6-10.8); Carbon Dioxide 29 mEq/L (19-29); Chloride 102 mEq/L (98-109); Glucose 108 mg/dL (70-99); Osmolality,Calculated 292 (280-300); Potassium 3.9 mEq/L (3.5-4.5); Sodium 140 mEq/L (136-145); eGFR For African Americans > 60 (> 60); eGFR For Non-African Americans > 60 (> 60)
[2017-03-16] MEDS: Gabapentin 300 MG CAPSULE PO SCH ×3 (08:11→21:05)
[2017-03-16] MEDS: Aspirin 81 MG TAB.CHEW PO SCH (08:11)
[2017-03-16] MEDS: predniSONE 20 MG TABLET PO SCH (08:11)
[2017-03-16] MEDS: hydroCHLOROthiazide 25 MG TABLET PO SCH (08:11)
[2017-03-16] MEDS: Nicotine 21 MG PATCH.TD24 TD SCH (08:13)
--- NOTE | 2017-03-16 09:37 | Event Note ---
Date of Encounter: 03/16/17 Time of Encounter: 09:00 - Cardiology Event Note Cardiology awaiting TB results, not available at this time. Telemetry reviewed with average HR 89, atrial fibrillation. PVCs noted. BP 100-120s systolic. Troponins now down trending, most recent 0.76. Plan for possible LHC pending TB results. Will continue to follow peripherally until TB results available.
[2017-03-16] MEDS ORDERED: Aminoglycoside Consult 1 EACH MC ONE (13:42)
--- NOTE | 2017-03-16 15:06 | Internal Med Progress Note ---
<Bozena Banuelos - Last Filed: 03/16/17 15:11> Date of Encounter: 03/16/17 Time of Encounter: 15:04 - Assessment and plan (1) Elevated troponin Status: Acute Assessment and plan: Demand ischemia vs NSTEMI. Heparin drip, ASA, statin, and BB. -Spoke to lab. They expect TB quantiferon results tonight. - If TB ruled out, then we will proceed with LHC tomorrow. -Patient NPO after midnight for potential LHC tomorrow. (2) Afib Status: Chronic Assessment and plan: Patient in RVR at time of presentation. RVR could be from pain or secondary to infection/sepsis. -We restarted home medication of verapamil today to attempt better rate control. -Patient received metoprolol this morning for a run of tachycardia. Patients HR now below 100. Qualifiers: Atrial fibrillation type: paroxysmal Qualified Code(s): I48.0 - Paroxysmal atrial fibrillation (3) Sepsis Status: Acute Assessment and plan: Patient was admitted for presumed sepsis secondary to tachycardia, hypotension, leukocysotis, and chest CT finding of resolving PNA. Leukocytosis may be explained by chronic steroid therapy. Patient has been afebrile with normal lactate. -Day 4 of cefepime and vancomycin. Qualifiers: Sepsis type: sepsis due to unspecified organism Qualified Code(s): A41.9 - Sepsis, unspecified organism (4) HTN (hypertension) Status: Chronic Assessment and plan: Patient now receiving a beta lily for HTN per cardiology. We started 25mg HCTZ today as well to bring pressures down. Qualifiers: Hypertension type: essential hypertension Qualified Code(s): I10 - Essential (primary) hypertension (5) Anemia Status: Acute Assessment and plan: Patient's hemoglobin stable. Qualifiers: Anemia type: unspecified type Qualified Code(s): D64.9 - Anemia, unspecified (6) Abdominal pain Status: Acute Assessment and plan: Abdominal pain has resolved with pepcid. Qualifiers: Abdominal location: epigastric Qualified Code(s): R10.13 - Epigastric pain (7) Pneumonia Status: Acute Assessment and plan: As per above sepsis. CT shows resolving PNA of lower lobes. Will treat as healthcare associated PNA due to recent hospitalization. Qualifiers: Pneumonia type: due to unspecified organism Laterality: left Lung location: lower lobe of lung Qualified Code(s): J18.1 - Lobar pneumonia, unspecified organism (8) Leukocytosis Status: Acute Assessment and plan: Most likely due to chronic steroid therapy as patient is afebrile and well- appearing. Could be part of resolution of healthcare-associated PNA. WBC elevated but stable. Qualifiers: Leukocytosis type: unspecified Qualified Code(s): D72.829 - Elevated white blood cell count, unspecified (9) CAD (coronary artery disease) Status: Chronic Assessment and plan: Patient has multiple risk factors for CAD. Will proceed with [facility] after TB testing returns. Qualifiers: Coronary Disease-Associated Artery/Lesion type: [place] artery [place] vs. transplanted heart: [place] heart Associated angina: without angina Qualified Code(s): I25.10 - Atherosclerotic heart disease of [place] coronary artery without angina pectoris (10) GERD (gastroesophageal reflux disease) Status: Chronic Assessment and plan: Patient now receiving omeprazole. Qualifiers: Esophagitis presence: esophagitis presence not specified Qualified Code(s) : K21.9 - Gastro-esophageal reflux disease without esophagitis (11) HLD (hyperlipidemia) Status: Chronic Qualifiers: Hyperlipidemia type: unspecified Qualified Code(s): E78.5 - Hyperlipidemia , unspecified (12) Tobacco abuse Status: Chronic - Subjective Interval history: 66 yo male with PMHx of atrial fibrillation, COPD with steroid dependency, CAD, HLD, HTN, valvular heart disease and GERD. Patient presented to ER with severe epigastric pain after [facility] with R[facility]. Patient was hyatiepotensive with an elevated WBC. He was admitted for abdominal pain, sepsis , PNA, leukocytosis, and afib. Patient is very comfortable this morning. He says he is much more comfortable with waiting for the results of the TB testing. He denies any abdominal pain, chest pain, or shortness of air. He has not had any diarrhea, constipation, hematochezia, melana, hematuria, or dysuria. - Constitutional Vitals: Temp Pulse Resp BP Pulse Ox 97.9 F 101 18 102/69 96 03/16/17 11:12 03/16/17 11:12 03/16/17 11:12 03/16/17 11:12 03/16/17 11:12 General appearance: Present: cooperative, A&O X 3 - Respiratory Respiratory exam: Present: CTAB, rhonchi. Absent: rales, stridor, wheezes - Cardiovascular Cardiovascular exam: Present: tachycardia. Absent: diastolic murmur, systolic murmur - Extremities Exam Extremities exam: Present: normal capillary refill, radial pulses palpable and symmetrical. Absent: calf tenderness, mottling, pedal edema, tenderness - Psychiatric Psychiatric exam: Present: normal affect, normal mood - Skin Skin exam: Present: dry, intact, warm Internal Medicine: Result - Labs CBC & Chem 7: 03/16/17 05:28 03/16/17 05:28 Labs: Short CBC 03/16/17 Range/Units 05:28 WBC 16.0 H (4.3-11.1) K/mcL Hgb 13.6 (12.9-16.9) g/dL Hct 43.8 (37.5-50.1) % Plt Count 370 (140-400) K/mcL Neutrophils # 10.2 H (1.6-8.9) K/mcL BMP 03/16/17 05:28 Sodium 140 Potassium 3.9 Chloride 102 Carbon Dioxide 29 BUN 17 Creatinine 0.99 Glucose 108 H Calcium 9.6 - ABG Interpretation ABG results: PT/INR, D-dimer PT 12.0 Seconds (9.4-12.1) 03/14/17 00:31 Consult Discharge Plan - Plan Instructions: Sulfamethoxazole/Trimethoprim (By mouth), Metoprolol (By mouth), Hydrochlorothiazide (By mouth), Aspirin (By mouth), Nicotine (Absorbed through the skin), Sertraline (By mouth), Ticagrelor (By mouth), Apixaban (By mouth), Atrial Fibrillation (DC), Left Heart Catheterization (DC), How to Stop Smoking ( GEN), Coronary Intravascular Stent Placement (DC), Pneumonia (DC), Pneumonia ( GEN) Additional Instructions: RISK FACTORS: STOP SMOKING: If you smoke, STOP. Smoking or tobacco use significantly increases your risk of heart disease because nicotine causes the arteries to narrow or constrict. It also causes fats to stick to the artery. Your chances of having a heart attack are greatly increased if you continue to smoke. For more information, call the education line for smoking cessation [id number] EAT A LOW FAT/CHOLESTEROL/SODIUM DIET: This diet may help reduce your chances of having a heart attack. LIFTING: Avoid lifting anything more than 10 pounds for 5-7 days Prior to straining, laughing, sneezing and/or coughing, apply manual pressure directly over insertion site. ACTIVITY: You may walk or climb stairs as tolerated You can resume sexual activity as tolerated In general, you are encouraged to engage in a minimum of 30 minutes or more of moderate intensity physical activity, such as brisk walking, daily or at least 3 -4 times weekly BATHING Do not submerge the site into water (bath tub, hot tub, swimming pool) for 1 week. This can be a source for infection into the blood stream. You may shower after 24 hours SITE CARE: After 24 hours, you may remove the dressing and leave the site open to air. Keep the site clean and dry. Clean gently and pat dry. You can expect bruising and tenderness that gradually resolve within a week or two. Return to work as instructed per your physician Resume driving as instructed per physician Keep all scheduled follow up appointments Resume medications as instructed IMPORTANT: If prescribed a Platelet Aggregation Inhibitor such as, Plavix, Brilinta or Effient: Duration of therapy is minimum one year These medications are often used in combination with Aspirin in prevention of future heart attacks Never discontinue unless consult with your [employer] STROKE (CVA) Risk factors for a stroke are: Age, cigarette smoking, diabetes, excessive alcohol consumption, family history, high blood pressure, overweight, physical inactivity, prior stroke, heart attack, diagnosis of carotid artery stenosis or other artery disease. Warning signs: Sudden numbness or weakness of the face, arm or leg; especially on one side of the body, sudden confusion, trouble speaking or understanding, sudden trouble seeing in one or both eyes, sudden trouble walking, dizziness, loss of balance or coordination, sudden severe headache with no cause. Call 911 or go to the Emergency Room. CONGESTIVE HEART FAILURE: If you have been diagnosed with Congestive Heart Failure (CHF) and your symptoms return, make an appointment with your physician Weigh yourself daily. Notify your physician if you have a weight gain of two or more pounds in one day or five or more pounds in one week. If you experience any difficulty breathing, please call 911 BLEEDING: Although the risk of bleeding is minimal, it can happen. If you have any bleeding from the site, apply firm pressure above the puncture site for 10-15 minutes. If the bleeding does not stop, continue manual pressure and call 911 Contact your physician if: You develop a fever greater than 101 degrees Fahrenheit Your site becomes reddened or has any drainage You have an increase in pain or burning at the site or if a large knot forms at the site. If you experience chest pain, shortness of breath, dizziness, or extreme tiredness, stop the activity and rest. Please notify your physicians office if you experience any of these symptoms and they are not relieved by rest please call 911!finish antibiotcs as prescribed. Please take all medications as prescribed. follow up with PCP within one week of discharge follow up with cardiology please return to emergency department if you develop increasing shortness of breath, chest pain, fever, chills Referrals: Evans Soriano, [employer]ING [employer]ER [Advanced Practice Nurse] - (Cardiology office will call patient at home with follow up appointment) MARIANA,PCP [Primary Care Provider] - 03/24/17 1:30 pm Prescriptions: Apixaban [Eliquis] 5 mg PO BID #60 tablet Aspirin 81 mg PO DAILY #30 tab.chew hydroCHLOROthiazide [Hydrochlorothiazide] 12.5 mg PO DAILY 30 Days #30 tablet Metoprolol [Lopressor] 25 mg PO BID #60 tablet Nicotine Patch [Nicoderm] 21 mg TD DAILY #30 patch.[id number] Sertraline [Zoloft] 100 mg PO DAILY #30 tablet Sulfamethoxazole/Trimeth DS [Bactrim DS] 1 each PO BID #16 tablet Ticagrelor [Brilinta] 90 mg PO BID #60 tablet <Edy Bach - Last Filed: 03/19/17 18:46> Date of Encounter: 03/16/17 - Constitutional Vitals: Temp Pulse Resp BP Pulse Ox 97.6 F 61 13 112/66 96 03/18/17 11:14 03/18/17 11:14 03/18/17 11:14 03/18/17 11:14 03/18/17 11:14 Internal Medicine: Result - Labs CBC & Chem 7: 03/18/17 02:37 03/18/17 02:37 - ABG Interpretation ABG results: PT/INR, D-dimer PT 12.0 Seconds (9.4-12.1) 03/14/17 00:31 - Attending Attestation I examined this patient and my medical decision-making was reviewed with the Resident Physician, Dr. Banuelos. I agree with the documented findings, disposition and treatment plan as described except to the extent set forth below. My findings are summarized below: Lung exam reveals improved aeration bilaterally from yesterday. Faint wheezes. Plan: Continue broad-spectrum IV antibiotics. Awaiting quantiferon and PPD test results. If he rules out for TB he will undergo cardiac catheterization.
[2017-03-16] MEDS: *HR* LORazepam 2 MG/ML VIAL IVP PRN (15:21)
[2017-03-16 18:19] LABS: QuantiFERON Mitogen minus NIL 7.68 IU/mL
[2017-03-16] MEDS: Melatonin 3 MG TABLET PO SCH (21:05)
[2017-03-17] MEDS: Cefepime HCl 1,000 MG in D5% in Water (Mini-Bag+) 100 ML IVPB SCH ×4 (00:08→22:55)
[2017-03-17] MEDS: *HR* LORazepam 2 MG/ML VIAL IVP PRN ×3 (00:08→22:54)
[2017-03-17] MEDS: Ipratropium/Albuterol Neb 3 ML IH SCH ×7 (03:56→23:07)
[2017-03-17 04:59] LABS: Basophils # 0.1 K/mcL (0.0-0.2); Basophils % 0.4 %; Eosinophils # 0.2 K/mcL (0.0-0.6); Eosinophils % 1.4 %; Hematocrit 38.1 % (37.5-50.1); Immature Granulocytes % 2.3 % (0-4); Lymphocytes # 3.8 K/mcL (0.6-4.6); Lymphocytes % 25.7 %; Mean Corpuscular HGB Conc 31.2 g/dL (31.6-35.5); Mean Corpuscular Hemoglobin 27.6 pg (28.0-33.3); Mean Corpuscular Volume 88.4 fL (83.0-100.0); Mean Platelet Volume 8.8 fL (9.4-12.4); Monocytes # 1.1 K/mcL (0.0-1.3); Monocytes % 7.6 %; Neutrophils # 9.3 K/mcL (1.6-8.9); Platelet Count 320 K/mcL (140-400); Red Blood Count 4.31 M/mcL (4.19-5.50); Red Cell Distribution Width 15.3 % (11.5-14.5); Segmented Neutrophils % 62.6 %
[2017-03-17 05:00] LABS: Hemoglobin 11.9 g/dL (12.9-16.9)
[2017-03-17 05:13] LABS: BUN/Creatinine Ratio 20 (6-26); Blood Urea Nitrogen 21 mg/dL (8-26); Calcium 9.2 mg/dL (8.6-10.8); Carbon Dioxide 27 mEq/L (19-29); Chloride 101 mEq/L (98-109); Glucose 82 mg/dL (70-99); Osmolality,Calculated 284 (280-300); Potassium 3.9 mEq/L (3.5-4.5); Sodium 136 mEq/L (136-145); eGFR For African Americans > 60 (> 60); eGFR For Non-African Americans > 60 (> 60)
[2017-03-17 07:41] LABS: QuantiFERON NIL 0.03 IU/mL; QuantiFERON-TB Gold In-Tube NEGATIVE (Negative)
[2017-03-17] MEDS: *HR* HYDROmorphone (PF) 1 MG/ML SYRINGE IVP PRN (08:20)
[2017-03-17] MEDS ORDERED: *HR* Midazolam HCl 2 MG/2 ML VIAL ONE (09:32)
[2017-03-17] MEDS ORDERED: *HR* FentaNYL (PF) 100 MCG/2 ML VIAL ONE (09:32)
[2017-03-17] MEDS ORDERED: 0.9 % Sodium Chloride 1,000 ML ONE ×2 (09:38→11:49)
--- NOTE | 2017-03-17 09:41 | Pre-Sedation Evaluation ---
Pre-sedation evaluation - Pre-sedation checklist Date of procedure: 03/17/17 Procedure: Left heart cath Recent Vitals: Last Vital Signs Temp 98.3 F 03/17/17 06:53 Pulse 73 03/17/17 07:58 Resp 16 03/17/17 06:53 BP 144/85 03/17/17 06:53 Pulse Ox 96 03/17/17 07:58 H&P (including ROS) documented in medical record: Yes Previous reaction to sedatives/anesthetics: No Dietary Status: NPO after Midnight Dentition: dentures removed Possible difficult airway: No ASA Classification *see protocol: CLASS II-Mild systemic disease Plan of Care: Pt appropriate candidate for procedure/moderate/conscious sedation , Risks/benefits of procedure/sedation discussed w/ patient/family
--- NOTE | 2017-03-17 10:04 | Event Note ---
Date of Encounter: 03/17/17 Time of Encounter: 08:00 - Cardiology Event Note TB test negative. PLan for LHC today. RIsks versus benefits of LHC explained to patient. Patient states understanding and agreeable to proceed with LHC. Will address detention anticoagulation pending LHC results. and updated on elevated WBC of 14,8 today, appears to have chronically elevated WBC. Further recommendations pending LHC.
--- NOTE | 2017-03-17 10:05 | Internal Med Progress Note ---
<Bozena Banuelos - Last Filed: 03/17/17 16:23> Date of Encounter: 03/17/17 Time of Encounter: 09:30 - Assessment and plan (1) Elevated troponin Current Visit: Yes Status: Acute Assessment and plan: Heart Catheterization showed occulsion in RCA and LAD. Patient received 1 stent. Continue brillinta, ASA, statin, and BB. (2) Afib Current Visit: Yes Status: Chronic Assessment and plan: Patient in RVR at time of presentation. RVR could be from pain or secondary to infection/sepsis. -tachycardia well controlled on home medication of verapamil. Qualifiers: Atrial fibrillation type: paroxysmal Qualified Code(s): I48.0 - Paroxysmal atrial fibrillation (3) Sepsis Current Visit: Yes Status: Acute Assessment and plan: Patient was admitted for presumed sepsis secondary to tachycardia, hypotension, leukocysotis, and chest CT finding of resolving PNA. Leukocytosis may be explained by chronic steroid therapy. Patient has been afebrile with normal lactate. -Patient's sputum culture shows gram negative rods and alcaligenes denitrficans. -Day 5 of cefepime, DC'd vancomycin yesterday. -Day 3 of levaquin. -We will discharge him home once his official sensitivity results is back for gram negative rods. Qualifiers: Sepsis type: sepsis due to unspecified organism Qualified Code(s): A41.9 - Sepsis, unspecified organism (4) HTN (hypertension) Current Visit: Yes Status: Chronic Assessment and plan: Patient now receiving a beta lily for HTN per cardiology. We started 25mg HCTZ two days ago as well to bring pressures down. Qualifiers: Hypertension type: essential hypertension Qualified Code(s): I10 - Essential (primary) hypertension (5) Anemia Current Visit: Yes Status: Acute Assessment and plan: Patient's hemoglobin stable. Qualifiers: Anemia type: unspecified type Qualified Code(s): D64.9 - Anemia, unspecified (6) Abdominal pain Current Visit: Yes Status: Acute Assessment and plan: Abdominal pain has resolved with pepcid. Qualifiers: Abdominal location: epigastric Qualified Code(s): R10.13 - Epigastric pain (7) Pneumonia Current Visit: Yes Status: Acute Assessment and plan: As per above sepsis. CT shows resolving PNA of lower lobes. Will treat as healthcare associated PNA due to recent hospitalization. Qualifiers: Pneumonia type: due to unspecified organism Laterality: left Lung location: lower lobe of lung Qualified Code(s): J18.1 - Lobar pneumonia, unspecified organism (8) Leukocytosis Current Visit: Yes Status: Acute Assessment and plan: Most likely due to chronic steroid therapy as patient is afebrile and well- appearing. Could be part of resolution of healthcare-associated PNA. WBC elevated but stable. Qualifiers: Leukocytosis type: unspecified Qualified Code(s): D72.829 - Elevated white blood cell count, unspecified (9) CAD (coronary artery disease) Current Visit: Yes Status: Chronic Assessment and plan: Patient has multiple risk factors for CAD. -LHC this morning Qualifiers: Coronary Disease-Associated Artery/Lesion type: [place] artery [place] vs. transplanted heart: [place] heart Associated angina: without angina Qualified Code(s): I25.10 - Atherosclerotic heart disease of [place] coronary artery without angina pectoris (10) GERD (gastroesophageal reflux disease) Current Visit: Yes Status: Chronic Assessment and plan: See above abdominal pain. Qualifiers: Esophagitis presence: esophagitis presence not specified Qualified Code(s) : K21.9 - Gastro-esophageal reflux disease without esophagitis (11) HLD (hyperlipidemia) Current Visit: Yes Status: Chronic Qualifiers: Hyperlipidemia type: unspecified Qualified Code(s): E78.5 - Hyperlipidemia , unspecified (12) Tobacco abuse Current Visit: Yes Status: Chronic Assessment and plan: Nicotine replacement therapy. - Subjective Interval history: 66 yo male with PMHx of atrial fibrillation, COPD with steroid dependency, CAD, HLD, HTN, valvular heart disease and GERD. Patient presented to ER with severe epigastric pain [facility]. Patient was hyatiepotensive with an elevated WBC. He was admitted for abdominal pain, sepsis , PNA, leukocytosis, and afib. Patient is very comfortable this morning. TB testing results came back and are negative. Patient is relieved and inquisitive about LHC> He denies any abdominal pain, chest pain, or shortness of air. He has not had any diarrhea, constipation, hematochezia, melana, hematuria, or dysuria. - Constitutional Vitals: Temp Pulse Resp BP Pulse Ox 98.3 F 73 16 144/85 96 03/17/17 06:53 03/17/17 07:58 03/17/17 06:53 03/17/17 06:53 03/17/17 07:58 General appearance: Present: cooperative, A&O X 3 - Respiratory Respiratory exam: Present: CTAB. Absent: accessory muscle use, rales, rhonchi, wheezes - Cardiovascular Cardiovascular exam: Present: RRR, +S1, +S2. Absent: diastolic murmur, gallop, rubs, systolic murmur - GI/Abdominal GI/Abdominal exam: Present: normal bowel sounds, soft, no peritoneal signs. Absent: distended, tenderness - Extremities Exam Extremities exam: Present: warm, radial pulses palpable and symmetrical. Absent : calf tenderness, cyanotic, pedal edema - Skin Skin exam: Present: dry, intact Internal Medicine: Result - Labs CBC & Chem 7: 03/17/17 04:44 03/17/17 04:44 Labs: Short CBC 03/17/17 Range/Units 04:44 WBC 14.8 H (4.3-11.1) K/mcL Hgb 11.9 L D (12.9-16.9) g/dL Hct 38.1 (37.5-50.1) % Plt Count 320 (140-400) K/mcL Neutrophils # 9.3 H (1.6-8.9) K/mcL BMP 03/17/17 04:44 Sodium 136 Potassium 3.9 Chloride 101 Carbon Dioxide 27 BUN 21 Creatinine 1.03 Glucose 82 Calcium 9.2 - ABG Interpretation ABG results: PT/INR, D-dimer PT 12.0 Seconds (9.4-12.1) 03/14/17 00:31 Consult Discharge Plan - Plan Referrals: Evans Soriano, [employer] [Advanced Practice Nurse] - (Cardiology office will call patient at home with follow up appointment) [place],PCP [Primary Care Provider] - 03/24/17 1:30 pm <Patrick Alaniz H - Last Filed: 03/17/17 17:05> Date of Encounter: 03/17/17 - Constitutional Vitals: Temp Pulse Resp BP Pulse Ox 97.8 F 75 18 124/65 98 03/17/17 16:13 03/17/17 16:13 03/17/17 16:13 03/17/17 16:13 03/17/17 16:13 Internal Medicine: Result - Labs CBC & Chem 7: 03/17/17 04:44 03/17/17 04:44 Labs: Short CBC 03/17/17 Range/Units 04:44 WBC 14.8 H (4.3-11.1) K/mcL Hgb 11.9 L D (12.9-16.9) g/dL Hct 38.1 (37.5-50.1) % Plt Count 320 (140-400) K/mcL Neutrophils # 9.3 H (1.6-8.9) K/mcL BMP 03/17/17 04:44 Sodium 136 Potassium 3.9 Chloride 101 Carbon Dioxide 27 BUN 21 Creatinine 1.03 Glucose 82 Calcium 9.2 - ABG Interpretation ABG results: PT/INR, D-dimer PT 12.0 Seconds (9.4-12.1) 03/14/17 00:31 - Attending Attestation Await final sputum culture report. Continue vancomycin and cefepime Continue Brilinta, aspirin, beta lily, statin I examined this patient and my medical decision-making was reviewed with the Resident Physician. I agree with the documented findings, disposition and treatment plan as described except to the extent set forth below.
[2017-03-17] MEDS ORDERED: Tirofiban 12.5 MG/250ML 12.5 MG/250 ML BAG ONE (11:00)
[2017-03-17] MEDS ORDERED: *HR* Ticagrelor 90 MG TABLET ONE (11:19)
[2017-03-17] MEDS ORDERED: Tirofiban 12.5 MG/250ML 12.5 MG/250 ML BAG IVC SCH (11:45)
--- NOTE | 2017-03-17 11:47 | Invasive Diagnostic Lab Proc ---
Name: Emmanuel Bai Date of Study: 03/17/2017 Date: 1950 Ht: 72.0in Medical Record#: [id number] Age: 66 Wt: 147.49lb Gender: Male BSA: 1.87 Order #: [id number] BMI: 19.98 Physicians Procedure Physician: Travis Gonzalez MD Referring MD: Referring MD: Staff Name Position Time In Loretta Boland RN Monitor 09:42 AM Dillan Carrera RN Frame Catcher 09:42 AM Vero Avery RT (R) RT 09:42 AM Cat Benitez RT (R) Scrub 09:42 AM Indications Indication Non-Stemi Procedures Performed Procedure L HRT ARTERY/VENTRICLE ANGIO IV Doppler BLD Flow 1st Vessel IV Doppler BLD Flow Ad'l Vessel PRQ CARD CHENG STENT W/ANGIO 1 VSL Pre-Procedure Checklist Informed consent is complete signed and on chart. H&P is on chart. ID band is on and ID verified with patient. Patient NPO for procedure The procedure was described for the patient and questions were answered. Blood Pressure: 145/81 ECG is on chart. Rhythm: NSR Plan of Care Patient will tolerate the procedure without complications. Adequate level of comfort will be maintained. Hemodynamics will remain stable Patient will recover from procedure without complications. Respiratory function will be maintained. Cardiac rhythm will remain stable. Patient temperature will be maintained. Patient and/or family have verbalized understanding of the procedure. Patient Education Chief Complaint/Reason for Test: Cardiac Cath Developmental Category: Geriatric (65+ years) Developmentally Appropriate for Age: Yes Learning Barriers: None Education Needs: Procedure Education Method: Verbal Information Taught: Cardiac Cath Educational Evaluation: Able to repeat information Intravenous Access Time IV Size Location DC'd Fluid/Drip Rate Units RN 09:46 AM 20g 1 1/4" Patent On Arrival Rt Arm 0.9NaCl 25 ml/hr Loretta Boland RN 09:48 AM 20g 1 1/4" Patent On Arrival Rt Arm 0.9NaCl Allergies bee stings tiotropium Bee Venom Vital Signs Time BP (mmHg) HR (bpm) O2 Sat. RR (bpm) LOC 09:43 AM / % 5 = Fully awake and oriented or at pre-proc level 09:43 AM / % 4 = Oriented but drowsy 09:58 AM / % 4 = Oriented but drowsy 09:43 AM 145 / 81 65 % 8 09:48 AM 136 / 85 62 99 % 17 09:53 AM 122 / 68 62 98 % 11 09:58 AM 130 / 70 63 99 % 13 10:03 AM 133 / 72 65 99 % 13 10:08 AM 137 / 76 64 99 % 12 10:13 AM 141 / 76 66 99 % 10 10:18 AM 148 / 72 66 99 % 12 10:23 AM 146 / 71 64 99 % 12 10:28 AM 145 / 74 64 99 % 11 10:33 AM 153 / 80 64 99 % 11 10:38 AM 149 / 79 63 99 % 11 10:43 AM 148 / 73 65 99 % 13 10:48 AM 149 / 73 66 98 % 14 10:53 AM 158 / 79 67 97 % 15 10:58 AM 142 / 76 71 98 % 14 11:03 AM 147 / 83 69 95 % 14 11:08 AM 135 / 90 95 95 % 15 11:13 AM 144 / 76 69 96 % 15 11:18 AM 150 / 80 69 97 % 12 11:23 AM 154 / 86 71 97 % 8 Procedural Medications Time Medication Dose Units Method Given By 09:43 AM Versed 0.5 mg Intravenous Dillan Carrera RN 09:43 AM Fentanyl 25 mcg Intravenous Dillan Carrera RN 09:53 AM Lidocaine 2% 10 ml Subcutaneous Travis Gonzalez MD 10:11 AM Heparin 3500 units Intravenous Dillan Carrera RN 10:47 AM Adenosine 562 mg/min Intracoronary Travis Gonzalez MD 10:56 AM Adenosine 562.8 mcg/min Intracoronary Travis Gonzalez MD 11:03 AM Aggrastat Bolus: 33 ml Intravenous Dillan Carrera RN 11:03 AM Aggrastat 12.5mg/250ml 12 ml Intravenous Dillan Carrera RN 11:03 AM Heparin 500 units Intravenous Dillan Carrera RN 11:18 AM Lidocaine 2% 5 ml Subcutaneous Travis Gonzalez MD 11:18 AM Brilinta 180 mg Orally Dillan Carrera RN ASA Classification: CLASS II- Mild systemic disease (i.e. well-controlled diabetes, hypertension, asthma, cigarette smoking) Oj Score Preprocedure Postprocedure Activity 2- Moves 4 extremities sustained head lift Activity 2- Moves 4 extremities sustained head lift Circulation 2- SBP +/= 20 points of pre-anesthetic level Circulation 2- SBP +/= 20 points of pre-anesthetic level Consciousness 2- Awake and alert oriented x 3 Consciousness 2- Awake and alert oriented x 3 O2 Saturation 2- Able to maintain O2 satruation of 92% on room air O2 Saturation 2- Able to maintain O2 satruation of 92% on room air Respiratory 2- Able to deep breathe and cough well Respiratory 2- Able to deep breathe and cough well Total Score 10 Total Score 10 Contrast Agent: Isovue Diagnostic Contrast: 2 ml Total Contrast: 2 ml Fluoro Dose: 956 mGy Activated Clotting Time Time Seconds to Clot 10:09 AM 106 10:35 AM 229 11:03 AM 227 Procedure Log Time Note Enter By 09:31 AM Pt arrived to slab tripper 2 at 09:31 scoates 09:33 AM Physician arrived 09:33 scoates 09:34 AM Meet and greet completed scoates 09:35 AM Procedure start 09:35 scoates 09:42 AM Patient charges- Angio tray pack, Navilyst 3mm J, Pulse Oximetry and ACIST tubing and transducer scoates 09:42 AM Case Delayed No, inpatient scoates 09:42 AM Hair removed from procedure site in procedure lab using clippers. Bilateral groin prepped with Chloraprep by Vero Avery (R), safety strap applied then patient was draped. Skin intact. scoates 09:42 AM Loretta Boland RN Position: Monitor Time in: 09:42 scoates 09:42 AM Vitals capture started with the following parameters, Patient=Adult, Interval=5 min, Initial Bueumqkq=039 mmHg, Deflation Rate=5 mmHg, Cuff placed on Left Arm 09:42 AM Dillan Carrera RN Position: Frame Catcher Time in: 09:42 scoates 09:42 AM Vero Avery RT (R) Position: RT Time in: 09:42 scoates 09:42 AM Cat Benitez RT (R) Position: Scrub Time in: :42 scoates 09:43 AM HR=65 bpm, BPIF=576/81 mmhg, Resp=8 B/min 09:43 AM Time: :43 Patient comfortable and pain free: Yes scoates :43 AM Time: 43LOC: 5 = Fully awake and oriented or at pre-proc level scoates 09:43 AM Time: 09:43 Versed 0.5 mg Intravenous Given by Dillan Carrera RN scoates 09:43 AM Time: :43 Fentanyl 25 mcg Intravenous Given by Dillan Carrera RN scoates 09:44 AM ASA Class CLASS II- Mild systemic disease (i.e. well-controlled diabetes, hypertension, asthma, cigarette smoking) scoates 09:48 AM HR=62 bpm, PQJZ=211/85 mmhg, SpO2=99.0 %, Resp=17 B/min 09:52 AM Time out performed according to hospital policy scoates 09:52 AM Clinical Presentation: Non-STEMI scoates 09:53 AM HR=62 bpm, HHEA=173/68 mmhg, SpO2=98.0 %, Resp=11 B/min, Comment=nsr 09:53 AM Time: :53 10 ml Lidocaine 2% to right groin Subcutaneous Given by Travis Gonzalez MD scoates 09:54 AM Access obtained by percutaneous puncture. 6Fr 11cm [place] sheath placed in right Femoral artery. [id number] scoates 09:54 AM 5Fr FR 4 catheter inserted over the wire DNC scoates 09:56 AM Recorded Pressure: Ao, HR=63, Condition=Condition 1 (Aorta) Ao 125/55/85 09:56 AM Recorded Pressure: LV, HR=65, Condition=Condition 1 (Left Ventricle) LV 132/-1/3 09:57 AM Recorded Pressure: LV, Ao, HR=63, Condition=Condition 1 (Left Ventricle) LV 135/-1/5, (Aorta) Ao 144/54/91 09:57 AM Catheter selectively placed in left ventricle scoates 09:58 AM HR=63 bpm, YMQS=649/70 mmhg, SpO2=99.0 %, Resp=13 B/min, Comment=nsr 09:58 AM RCA angiography performed in multiple views. scoates 09:58 AM Catheter removed scoates 09:58 AM Time: 09:43 Patient comfortable and pain free: Yes scoates 09:58 AM Time: 09:43LOC: 4 = Oriented but drowsy scoates 09:59 AM 5Fr FL 4 catheter inserted over the wire DNC scoates 09:59 AM Recorded Pressure: Ao, HR=67, Condition=Condition 1 (Aorta) Ao 131/61/87 10:00 AM LCA angiography performed in multiple views. scoates 10:01 AM Recorded Pressure: Ao, HR=64, Condition=Condition 1 (Aorta) Ao 125/52/77 10:03 AM HR=65 bpm, TVKO=584/72 mmhg, SpO2=99.0 %, Resp=13 B/min 10:04 AM Recorded Pressure: Ao, HR=65, Condition=Condition 1 (Aorta) Ao 142/60/94 10:05 AM Physician reviewing films scoates 10:07 AM wire reinserted catheter removed scoates 10:07 AM ACT drawn scoates 10:08 AM HR=64 bpm, ZFVM=127/76 mmhg, SpO2=99.0 %, Resp=12 B/min 10:09 AM At 10:09 the ACT was 106 seconds. scoates 10:11 AM Time: 10:11 Heparin 3500 units Intravenous Given by Dillan Carrera RN scoates 10:12 AM 6Fr XB LAD 3.5 [place] Bright-Tip guide catheter was used to cannulate the PCI vessel successfully. reused? No scoates 10:12 AM Inflation device was opened. scoates 10:13 AM HR=66 bpm, GZMQ=297/76 mmhg, SpO2=99.0 %, Resp=10 B/min 10:13 AM Time: 09:58 Patient comfortable and pain free: Yes scoates 10:13 AM Time: 09:58LOC: 4 = Oriented but drowsy scoates 10:16 AM Pressure channel 1 zeroed. 10:18 AM HR=66 bpm, GTDK=955/72 mmhg, SpO2=99 %, Resp=12 B/min 10:23 AM HR=64 bpm, IUYC=673/71 mmhg, SpO2=99 %, Resp=12 B/min 10:25 AM Pressure channel 1 equalization failed. 10:25 AM Pressure channel 1 equalization failed. 10:25 AM Pressure channel 1 equalization failed. 10:25 AM Pressure channel 1 equalization failed. 10:25 AM Pressure channel 1 equalization failed. 10:26 AM Pressure channel 1 equalization failed. 10:26 AM Pressure channel 1 equalization failed. 10:26 AM Pressure channel 1 equalization failed. 10:28 AM HR=64 bpm, VKKP=157/74 mmhg, SpO2=99 %, Resp=11 B/min 10:33 AM HR=64 bpm, VQYF=289/80 mmhg, SpO2=99 %, Resp=11 B/min 10:35 AM wire reinserted catheter removed scoates 10:35 AM At 10:35 the ACT was 229 seconds. scoates 10:38 AM HR=63 bpm, YHAO=392/79 mmhg, SpO2=99 %, Resp=11 B/min 10:40 AM 6Fr XB3.0 [place] guide catheter was used to cannulate the PCI vessel successfully. reused? No scoates 10:43 AM HR=65 bpm, RMJU=777/73 mmhg, SpO2=99 %, Resp=13 B/min 10:45 AM Pressure channel 1 equalized to channel 2. 10:47 AM [place] Wire advanced to target lesion. scoates 10:47 AM FFR: Value=0.97, Condition=Condition 1, Device=VOLCANO PRIME WIRE 10:47 AM Recorded Pressure: PV1, Ao, FFR=0.97, HR=82, Condition=Condition 1 (Portal Vein) PV1 131/149/102, (Aorta) Ao 148/65/104 10:48 AM HR=66 bpm, FHUR=094/73 mmhg, SpO2=98 %, Resp=14 B/min 10:50 AM Time: 10:47 Adenosine 562 mg/min administered Intracoronary by Travis Gonzalez MD scoates 10:51 AM FFR Measurement: 0.97 circ scoates 10:51 AM adenosine dc'd scoates 10:53 AM HR=67 bpm, BRXM=060/79 mmhg, SpO2=97 %, Resp=15 B/min 10:55 AM FFR: Value=0.72, Condition=Condition 1, Device=VOLCANO PRIME WIRE 10:55 AM Recorded Pressure: PV1, Ao, FFR=0.72, HR=70, Condition=Condition 1 (Portal Vein) PV1 ?/?/?, (Aorta) Ao ?/?/? 10:56 AM [ Start FFR sample ] 10:56 AM Time: 10:56 Adenosine 562.8 mcg/min administered Intracoronary by Travis Gonzalez MD scoates 10:56 AM FFR Measurement: 0.72 lad scoates 10:57 AM wire reinserted catheter removed scoates 10:58 AM HR=71 bpm, XPBD=109/76 mmhg, SpO2=98.0 %, Resp=14 B/min 10:59 AM 6Fr JR 4 [place] Bright-Tip guide catheter was used to cannulate the PCI vessel successfully. reused? No scoates 11:00 AM .014 [employer] [place] 190cm guide wire across target lesion- successful. reused? No scoates 11:01 AM ACT drawn scoates 11:03 AM HR=69 bpm, QRSN=727/83 mmhg, SpO2=95 %, Resp=14 B/min 11:03 AM Time: 11:03 Aggrastat Bolus: 33 ml Intravenous Given by Dillan Carrera RN [place] pump scoates 11:03 AM Time: 11:03 Aggrastat 12.5mg/250ml 12 ml Intravenous Given by Dillan Carrera RN [place] pump scoates 11:03 AM At 11:03 the ACT was 227 seconds. scoates 11:03 AM Time: 11:03 Heparin 500 units Intravenous Given by Dillan Carrera RN scoates 11:04 AM 2.0 mm x 8 mm Emerge Monorail balloon across target lesion- successful. reused? No scoates 11:05 AM Balloon inflated @ 6 thomas for 15 seconds scoates 11:06 AM Balloon inflated @ 8 thomas for 16 seconds scoates 11:08 AM HR=95 bpm, EETJ=641/90 mmhg, SpO2=95.0 %, Resp=15 B/min 11:08 AM Balloon inflated @ 7 thomas for 15 seconds scoates 11:09 AM Balloon inflated @ 7 thomas for 16 seconds scoates 11:11 AM Balloon catheter removed intact. scoates 11:11 AM 3.0mm x 16mm Synergy drug-eluting stent across target lesion- successful Lot #[id number] scoates 11:12 AM Stent deployed @ 11 thomas for 13 seconds scoates 11:12 AM Stent balloon reinflated @ 16 thomas for 9 seconds scoates 11:13 AM HR=69 bpm, GJKW=949/76 mmhg, SpO2=96 %, Resp=15 B/min 11:16 AM Stent delivery system removed intact. scoates 11:16 AM Guide wire removed intact. scoates 11:16 AM Guide catheter removed intact. scoates 11:18 AM hand injection of right groin scoates 11:18 AM HR=69 bpm, OSMI=763/80 mmhg, SpO2=97 %, Resp=12 B/min 11:18 AM Time: 11:18 5 ml Lidocaine 2% to right groin Subcutaneous Given by Travis Gonzalez MD scoates 11:19 AM Time: 11:18 Brilinta 180 mg Orally Given by Dillan Carrera RN scoates 11:19 AM Procedure completed at 11:19 scoates 11:20 AM Sign out completed: Radiation Dose 956 mGy Fluoro Time: 17.3 Isovue 370 - 200ml contrast 2 ml given by Travis Gonzalez MD. Complications: NoneCardiac Rehab Consult needed: YesConfirmed administered medications: Yes scoates 11:20 AM Isovue 370 - 200ml,2 Bottle(s) used. scoates 11:20 AM Arterial sheath pulled, Angio-seal closure device used and was Successful S/N. scoates 11:21 AM Post ECG NSR scoates 11:22 AM Post Blood Pressure 150/80 scoates 11:22 AM 11:22 Post Pulses Bilateral DP & PT 1+ scoates 11:22 AM Information taught Cardiac Cath, PCI, IVUS/Flowire, and Angioseal scoates 11:22 AM Education needs Procedure, Plan of Care, and Responsibilities of Patient in Care scoates 11:22 AM Learning barriers :None scoates 11:22 AM Education Methods Verbal scoates 11:22 AM Education evaluation Able to repeat information scoates 11:22 AM Site status No bleeding/hematoma - Rt Groin as reported by Cat Bneitez RT (R) at 11:22 scoates 11:22 AM Opsite applied scoates 11:22 AM Plavix, Effient or Brilinta given Yes scoates 11:22 AM Delay to floor No scoates 11:22 AM Patient out of room: 11:22 scoates 11:22 AM Family placed in consult room. scoates 11:23 AM Report given to jared CARTER Pt taken to 2N Room #9. 11:22 scoates 11:23 AM Coronary Dominance: right scoates 11:23 AM Lesion found in Proximal RCA. Pre Stenosis: 99 Pre SUSHIL Flow: 3: Complete and Brisk Flow/Perfusion scoates 11:23 AM HR=71 bpm, RQBI=744/86 mmhg, SpO2=97 %, Resp=8 B/min 11:28 AM Lesion found in Mid RCA. Pre Stenosis: 60 Pre SUSHIL Flow: scoates 11:28 AM Lesion found in LMCA. Pre Stenosis: 40 Pre SUSHIL Flow: scoates 11:28 AM Lesion found in Proximal LAD. Pre Stenosis: 75 Pre SUSHIL Flow: scoates 11:28 AM Lesion found in Mid LAD. Pre Stenosis: 70 Pre SUSHIL Flow: scoates 11:29 AM Lesion found in Distal Circumflex. Pre Stenosis: 50 Pre SUSHIL Flow: scoates 11:29 AM Lesion found in 2nd Marginal. Pre Stenosis: 65 Pre SUSHIL Flow: scoates 11:29 AM Lesion found in Distal LAD. Pre Stenosis: 60 Pre SUSHIL Flow: scoates 11:29 AM Left Main Coronary Artery with 40% stenosis scoates 11:30 AM Proximal Left Anterior Descending Coronary Artery with 75% stenosis. If graft is supplying this territory, 0 % stenosis. scoates 11:30 AM Mid/Distal Left Anterior Descending Coronary Artery and diagonal branches with 70% stenosis. If graft is supplying this area, 0 % stenosis scoates 11:30 AM Circumflex, Obtuse Marginal, Left Posterior Descending, and Left Posterolateral Coronary Arteries with 65 % stenosis. If graft is supplying this area, 0 % stenosis scoates 11:30 AM Right Coronary, Right Posterior Descending Arteries with Right Posterolateral and Acute Marginal branches with 99 % stenosis. If graft is supplying this area, 0 % stenosis scoates 11:40 AM Report given to juanita CARTER Pt taken to 2N Room #9. 11:39 scoates Complications Complication None Hemodynamics Pressures Site Systolic/A Wave Diastolic/V Wave Mean AO 125 55 85 LV 132 -1 3 LV 135 -1 5 AO 144 54 91 AO 131 61 87 AO 125 52 77 AO 142 60 94 PV1 131 149 102 AO 148 65 104 PV1 AO Post Procedure Information Blood Pressure: 150/80 mmHg Rhythm: NSR Post procedural instructions were given Closure Device Time Device Success/Fail 03/17/2017 11:24:00 AM Angio-Seal VIP Successful Site Checks Time Location Status Staff Sheath In? Note 11:22 AM Rt Groin No bleeding/hematoma Cat Benitez RT (R) Pulses Time Site Pre-Procedure Post-Procedure Note 03/17/2017 9:46:00 AM Bilateral DP & PT 2+ 03/17/2017 9:46:00 AM Bilateral radial 2+ 11:22:00 AM Bilateral DP & PT 1+ Updated by Loretta Byrd RN on 03/17/2017 11:41:05 AM electronically signed on 03/17/2017 11:41:58 AM with status of Final
[2017-03-17] MEDS ORDERED: Heparin 1,000 UNITS/500 mL NS 500 ML ONE (11:49)
[2017-03-17] MEDS ORDERED: Nitroglycerin 1,000 MCG/10 ML VIAL IV ONE (11:49)
[2017-03-17] MEDS ORDERED: *HR* Heparin 10,000 UNIT/10 ML VIAL ONE (11:49)
[2017-03-17] MEDS ORDERED: Ondansetron 4 MG/2 ML VIAL IVP PRN (11:49)
[2017-03-17] MEDS: Aspirin 81 MG TAB.CHEW PO SCH (12:21)
[2017-03-17] MEDS: predniSONE 20 MG TABLET PO SCH (12:21)
[2017-03-17] MEDS: hydroCHLOROthiazide 25 MG TABLET PO SCH (12:21)
[2017-03-17] MEDS: Nicotine 21 MG PATCH.TD24 TD SCH (12:22)
[2017-03-17] MEDS: *HR* OxyCODONE/APAP 10/325 TABLET PO PRN ×2 (12:22→20:34)
[2017-03-17] MEDS: Gabapentin 300 MG CAPSULE PO SCH ×3 (12:32→20:17)
--- NOTE | 2017-03-17 18:15 | Electrocardiograph Report ---
[place] [id number] Test Date: 2017-03-17 Pat Name: Emmanuel Bai Department: 110 Room: 2N09 Gender: M Audiology Technician: TESSA : 1950 Requested By: David Gonzalez Order Number: [id number] Reading MD: Roz Thomas Measurements Intervals [place] Rate: 68 P: 78 [place]: 160 QRS: 87 QRSD: 96 T: 68 QT: 380 QTc: 397 Interpretive Statements SINUS RHYTHM WITH OCCASIONAL SUPRAVENTRICULAR PREMATURE COMPLEXES POSSIBLE RIGHT VENTRICULAR CONDUCTION DELAY Electronically Signed On 03-17-2017 18:14:17 EDT by Roz Thomas
[2017-03-17] MEDS: Melatonin 3 MG TABLET PO SCH (20:16)
[2017-03-18 02:48] LABS: Basophils # 0.1 K/mcL (0.0-0.2); Basophils % 0.3 %; Eosinophils # 0.1 K/mcL (0.0-0.6); Eosinophils % 0.6 %; Hematocrit 35.2 % (37.5-50.1); Hemoglobin 11.3 g/dL (12.9-16.9); Immature Granulocytes % 1.9 % (0-4); Lymphocytes % 10.9 %; Mean Corpuscular HGB Conc 32.1 g/dL (31.6-35.5); Mean Corpuscular Hemoglobin 28.4 pg (28.0-33.3); Mean Corpuscular Volume 88.4 fL (83.0-100.0); Mean Platelet Volume 8.9 fL (9.4-12.4); Monocytes # 1.1 K/mcL (0.0-1.3); Monocytes % 5.7 %; Neutrophils # 14.8 K/mcL (1.6-8.9); Platelet Count 310 K/mcL (140-400); Red Blood Count 3.98 M/mcL (4.19-5.50); Red Cell Distribution Width 15.4 % (11.5-14.5); Segmented Neutrophils % 80.6 %
[2017-03-18 02:59] LABS: BUN/Creatinine Ratio 18 (6-26); Blood Urea Nitrogen 18 mg/dL (8-26); Carbon Dioxide 28 mEq/L (19-29); Chloride 100 mEq/L (98-109); Glucose 86 mg/dL (70-99); Osmolality,Calculated 281 (280-300); Potassium 4.3 mEq/L (3.5-4.5); Sodium 135 mEq/L (136-145); eGFR For African Americans > 60 (> 60); eGFR For Non-African Americans > 60 (> 60)
[2017-03-18] MEDS: Ipratropium/Albuterol Neb 3 ML IH SCH ×3 (03:24→11:16)
[2017-03-18] MEDS: hydroCHLOROthiazide 25 MG TABLET PO SCH (08:10)
[2017-03-18] MEDS: predniSONE 20 MG TABLET PO SCH (08:11)
[2017-03-18] MEDS: Gabapentin 300 MG CAPSULE PO SCH ×2 (08:12→13:04)
[2017-03-18] MEDS: Cefepime HCl 1,000 MG in D5% in Water (Mini-Bag+) 100 ML IVPB SCH (08:12)
[2017-03-18] MEDS: Aspirin 81 MG TAB.CHEW PO SCH (08:12)
[2017-03-18] MEDS: Nicotine 21 MG PATCH.TD24 TD SCH (08:14)
[2017-03-18] MEDS: *HR* OxyCODONE/APAP 10/325 TABLET PO PRN (08:15)
[2017-03-18] MEDS ORDERED: *HR* Ticagrelor 90 MG TABLET PO SCH (09:00)
[2017-03-18] MEDS ORDERED: APIXABAN 5 MG TABLET PO SCH (09:15)
--- NOTE | 2017-03-18 10:37 | Cardiology Progress Note ---
Date of Encounter: 03/18/17 Time of Encounter: 08:30 Assessment and Plan (1) Pneumonia Current Visit: Yes Status: Acute Per cardiology: -Admitted with pneumonia. -Management per primary service. Qualifiers: Pneumonia type: due to unspecified organism Laterality: left Lung location: lower lobe of lung Qualified Code(s): J18.1 - Lobar pneumonia, unspecified organism (2) PAF (paroxysmal atrial fibrillation) Current Visit: Yes Status: Chronic Per cardiology: -Known hx of PAF, not on anticoagulation due to low CHADSVASC. However, CHADSVASC is likely a 2 (Age, HTN). -Currently SR, average HR 69. -Echo EF preserved with no significant valvular dysfunction. -On beta lily. -Started on eliquis per recommendations. Of note, is on triple therapy with asa, brilinta, and eliquis. Free 30 day card for eliquis given to patient. Will assess affordability of eliquis in outpatient setting. -Will continue to monitor in outpatient setting. (3) Elevated troponin Current Visit: Yes Status: Acute Per cardiology: -Elevated troponin with peak 1.55. -LHC yesterday with left main 40%, proximal LAD 75%, 70% mid LAD, 60% distal LAD , distal circumflex 50%, OM2 65%. proximal RCA 99% with CHENG placed, 60% mid. Will need staged outpatient procedure for LAD. -ON asa, statin, beta blokcer, and brilinta. Brilinta assistance card given to patient -Patient educated on importance of dual anti-platelet therapy uniterrupted for at least one year. Patient states understanding. -Sudarshan chest pain. -Right groin access site without ecchymosis or hematoma. -Right groin site education given to patient. Patient states understanding. -Cadiology will sign off and will follow in outpatient setting. Follow up set. Discussion w patient/family: The assessment and plan as outlined above was discussed with the patient who expressed understanding and agreement. All questions were answered. Thank you for involving us in the care of your patient. Please call with any questions. Discussed and reviewed with . Subjective Principal diagnosis: pneumonia Interval history: Patient underwent LHC yesterday with 1 CHENG placed. Patient states he feels great this morning. Patient denies issues using right leg or walking. Objective Vital Signs, Last 4 Hours Temp Pulse Resp BP Pulse Ox 03/18/17 09:07 86 03/18/17 07:59 22 97 03/18/17 06:53 98.1 F 83 16 133/84 96 General: Conversant, No Apparent Distress HEENT: Atraumatic, Normocephaly, Mucus Membranes Moist Neck: No JVD, Normal carotid pulses Cardiac: Reg Rate and Rhythm, Normal S1 and S2, No Murmur Lungs: Normal Breath Sounds, No Wheeze, Rales, Rhonchi Neuro: Alert and responsive, No focal deficits noted Abdomen: Soft, Non-Tender Skin: No rashes noted on visualized skin, Other (Right groin access site without hematoma or ecchymosis. ) Musculoskeletal: No Chest Wall Tenderness Extremities: No Clubbing, No Cyanosis, No Edema, Normal Pulses Results 03/18/17 02:37 03/18/17 02:37 Lab Results Active Medications Acetaminophen (Tylenol) 650 mg PO Q6HR PRN PRN Reason: Mild Pain (1-3) Stop: 09/12/17 02:15 Albuterol Sulfate (Proventil Neb) 2.5 mg IH Q2H PRN; Protocol PRN Reason: SOB/WHEEZING Stop: 09/12/17 04:01 Albuterol/Ipratropium (Duoneb) 3 ml IH [id number] [facility] Stop: 09/12/17 04:01 Last Admin: 03/18/17 07:56 Dose: 3 ml Apixaban (Eliquis) 5 mg PO BID [facility] Stop: 09/17/17 09:16 Last Admin: 03/18/17 10:27 Dose: 5 mg Aspirin (Aspirin) 81 mg PO DAILY [facility] Stop: 09/12/17 16:46 Last Admin: 03/18/17 08:12 Dose: 81 mg Atorvastatin Calcium (Lipitor) 40 mg PO HS [facility] Stop: 09/12/17 21:01 Last Admin: 03/17/17 20:17 Dose: 40 mg Gabapentin (Neurontin) 300 mg PO TID NATALYA Stop: 09/12/17 09:01 Last Admin: 03/18/17 08:12 Dose: 300 mg Hydrochlorothiazide (Hydrochlorothiazide) 12.5 mg PO DAILY [facility] PRN Reason: Protocol Stop: 09/14/17 09:31 Last Admin: 03/18/17 08:10 Dose: 12.5 mg Hydromorphone HCl (Dilaudid) 0.5 mg IVP Q4HR PRN PRN Reason: Severe Pain (7-10) Stop: 09/12/17 02:15 Last Admin: 03/17/17 08:20 Dose: 0.5 mg Cefepime HCl 1,000 mg/ (Dextrose) 100 mls @ 200 mls/hr IVPB Q8HR [facility] Stop: 09/12/17 08:01 Last Admin: 03/18/17 08:12 Dose: 200 mls/hr Lorazepam (Ativan) 0.5 mg IVP Q6HR PRN PRN Reason: Agitation Stop: 09/14/17 09:25 Last Admin: 03/17/17 22:54 Dose: 0.5 mg Melatonin (Melatonin) 9 mg PO HS [facility] Stop: 09/12/17 21:01 Last Admin: 03/17/17 20:16 Dose: 9 mg Metoprolol Tartrate (Lopressor) 25 mg PO BID [facility] Stop: 09/13/17 10:16 Last Admin: 03/18/17 08:11 Dose: 25 mg Naloxone HCl (Narcan) 0.4 mg IVP Q2MIN PRN PRN Reason: Opioid Reversal Stop: 09/12/17 02:15 Nicotine (Nicoderm) 21 mg TD DAILY [facility] PRN Reason: Protocol Stop: 09/14/17 09:31 Last Admin: 03/18/17 08:14 Dose: 21 mg Omeprazole (Prilosec) 20 mg PO DAILY@0730 [facility] Stop: 09/13/17 16:01 Last Admin: 03/18/17 08:11 Dose: 20 mg Ondansetron HCl (Zofran) 4 mg IVP Q6HR PRN; Protocol PRN Reason: Nausea And Vomiting Stop: 09/16/17 11:50 Oxycodone/Acetaminophen (Percocet 10/325) 1 each PO 5XD PRN PRN Reason: Pain Stop: 09/12/17 18:03 Last Admin: 03/18/17 08:15 Dose: 1 each Prednisone (Prednisone) 40 mg PO DAILY [facility] Stop: 09/15/17 09:01 Last Admin: 03/18/17 08:11 Dose: 40 mg Sertraline HCl (Zoloft) 100 mg PO DAILY [facility] Stop: 09/13/17 16:01 Last Admin: 03/18/17 08:10 Dose: 100 mg Ticagrelor (Brilinta) 90 mg PO BID [facility] Stop: 09/17/17 09:01 Last Admin: 03/18/17 08:12 Dose: 90 mg Verapamil HCl (Isoptin) 40 mg PO Q8H [facility] Stop: 09/15/17 16:01 Last Admin: 03/18/17 08:11 Dose: 40 mg Laboratory Tests 03/18/17 03/18/17 02:37 02:37 Hgb 11.3 L Creatinine 0.99 - Imaging and Cardiology Chest Xray: report reviewed Echo: report reviewed Cardiac cath: report reviewed - EKG Interpretation EKG results cardiology: other (Telemetry reviewed with average HR 69, sinus rhythm. PVCs and PACs noted.) Consult Discharge Plan - Plan Referrals: Evans Soriano, PRODUCTION PATTERN MAKER [Advanced Practice Nurse] - (Cardiology office will call patient at home with follow up appointment) MARIANA,PCP [Primary Care Provider] - 03/24/17 1:30 pm
[2017-03-18] MEDS: *HR* LORazepam 2 MG/ML VIAL IVP PRN (10:38)
[2017-03-18 11:19] VITALS: BP 112/66
--- NOTE | 2017-03-18 11:59 | Discharge Summary ---
<SloanTalat raymundo - Last Filed: 03/18/17 11:35> Date of Encounter: 03/18/17 Time of Encounter: 11:35 - Discharge Diagnosis (1) Pneumonia Priority: Primary Status: Acute Qualifiers: Pneumonia type: due to unspecified organism Laterality: left Lung location: lower lobe of lung Qualified Code(s): J18.1 - Lobar pneumonia, unspecified organism (2) Elevated troponin Priority: Secondary Status: Acute (3) PAF (paroxysmal atrial fibrillation) Priority: Secondary Status: Chronic (4) Sepsis Priority: Secondary Status: Acute Qualifiers: Sepsis type: sepsis due to unspecified organism Qualified Code(s): A41.9 - Sepsis, unspecified organism (5) HTN (hypertension) Priority: Secondary Status: Chronic Qualifiers: Hypertension type: essential hypertension Qualified Code(s): I10 - Essential (primary) hypertension (6) Anemia Priority: Secondary Status: Acute Qualifiers: Anemia type: unspecified type Qualified Code(s): D64.9 - Anemia, unspecified (7) Leukocytosis Priority: Secondary Status: Acute Qualifiers: Leukocytosis type: unspecified Qualified Code(s): D72.829 - Elevated white blood cell count, unspecified (8) CAD (coronary artery disease) Priority: Secondary Status: Chronic Qualifiers: Coronary Disease-Associated Artery/Lesion type: [place] artery [place] vs. transplanted heart: [place] heart Associated angina: without angina Qualified Code(s): I25.10 - Atherosclerotic heart disease of [place] coronary artery without angina pectoris (9) GERD (gastroesophageal reflux disease) Priority: Secondary Status: Chronic Qualifiers: Esophagitis presence: esophagitis presence not specified Qualified Code(s) : K21.9 - Gastro-esophageal reflux disease without esophagitis (10) HLD (hyperlipidemia) Priority: Secondary Status: Chronic Qualifiers: Hyperlipidemia type: unspecified Qualified Code(s): E78.5 - Hyperlipidemia , unspecified (11) Tobacco abuse Priority: Secondary Status: Chronic - Discharge Medications Prescriptions: Apixaban [Eliquis] 5 mg PO BID #60 tablet Aspirin 81 mg PO DAILY #30 tab.chew hydroCHLOROthiazide [Hydrochlorothiazide] 12.5 mg PO DAILY 30 Days #30 tablet Metoprolol [Lopressor] 25 mg PO BID #60 tablet Nicotine Patch [Nicoderm] 21 mg TD DAILY #30 patch.td24 Sertraline [Zoloft] 100 mg PO DAILY #30 tablet Sulfamethoxazole/Trimeth DS [Bactrim DS] 1 each PO BID #16 tablet Ticagrelor [Brilinta] 90 mg PO BID #60 tablet Home Medications: Albuterol Neb [Proventil Neb] 2.5 mg IH TID 02/19/17 [History] Albuterol Sulfate [Albuterol Inhaler] 2 puff IH Q6H PRN 02/19/17 [History] Alendronate Sodium [Fosamax] 70 mg PO WE 02/19/17 [History] Alprostadil [[place]] 500 mcg UR AD PRN 02/19/17 [History] Atorvastatin [Lipitor] 40 mg PO HS 02/19/17 [History] Budesonide/Formoterol 160/4.5 [Symbicort 160/4.5] 2 puff IH BIDR 02/19/17 [ History] Cetirizine HCl [All Day Allergy] 10 mg PO DAILY 02/19/17 [History] Diclofenac Sodium [Voltaren] 1 appl TP BID 02/19/17 [History] Gabapentin [Neurontin] 900 mg PO TID 02/19/17 [History] Melatonin 10 mg PO HS PRN 02/19/17 [History] Omeprazole [PriLOSEC] 20 mg PO DAILY 02/19/17 [History] Oxycodone HCl/Acetaminophen [Percocet 10-325 mg Tablet] 1 each PO 5XD PRN [History] Potassium Chloride [K-Tab ER] 10 meq PO DAILY 02/19/17 [History] Theophylline Anhydrous [Oliver-24] 200 mg PO DAILY 02/19/17 [History] Verapamil HCl [Verapamil ER] 180 mg PO DAILY 02/19/17 [History] predniSONE [PredniSONE] 10 mg PO DAILY #0 02/22/17 [Rx] Nicotine Polacrilex [Nicotine Lozenge] 2 mg BC Q2H PRN 03/13/17 [History] Acetaminophen [Tylenol] 650 mg PO Q6HR PRN tablet 03/18/17 [Rx] Apixaban [Eliquis] 5 mg PO BID #60 tablet 03/18/17 [Rx] Aspirin 81 mg PO DAILY #30 tab.chew 03/18/17 [Rx] Metoprolol [Lopressor] 25 mg PO BID #60 tablet 03/18/17 [Rx] Nicotine Patch [Nicoderm] 21 mg TD DAILY #30 patch.td24 03/18/17 [Rx] Sertraline [Zoloft] 100 mg PO DAILY #30 tablet 03/18/17 [Rx] Sulfamethoxazole/Trimeth DS [Bactrim DS] 1 each PO BID #16 tablet 03/18/17 [Rx] Ticagrelor [Brilinta] 90 mg PO BID #60 tablet 03/18/17 [Rx] hydroCHLOROthiazide [Hydrochlorothiazide] 12.5 mg PO DAILY 30 Days #30 tablet [Rx] Allergies/Adverse Reactions: 3 Allergy/AdvReac Type Severity Reaction Status Date / Time tiotropium Allergy Rash Verified 03/15/16 22:23 [From Spiriva with HandiHaler] bee stings AdvReac Anaphylaxis Uncoded 02/19/17 14:16 Procedures/tests Complete & Pending: Procedures Performed prior 72 hours Category Date Time Status CL Cardiac Catheterization [CL] Routine Presentation Designer 03/17/17 09:04 Completed ECG 12 lead ECG [ECG] Stat Y 03/17/17 11:45 Completed Date of admission: 03/13/17 01:44 [facility] care physician[facility] Consults: 03/13/17 03:40 Consult to Butcher Scullion [CONS] Routine Reason for SW Consult: Possible need for home services. 03/13/17 23:09 Consult to Cardiology [CONS] Routine Comment: Consulting Provider: Cardiology [place] Reason for Consult: Chest pain, Sepsis, Elevated troponin Call Completed: No 03/17/17 11:51 Consult to Cardiac Rehabilitation-Phase1 [CONS] Routine Comment: Reason for Consult: post op cath Call Completed: Yes - Patient Status Disposition: Home, Self-Care Condition: Good Functional capacity at discharge: independent ambulation Overall status at discharge: patient is progressing back to baseline - Discharge Instructions Instructions: Sulfamethoxazole/Trimethoprim (By mouth), Metoprolol (By mouth), Hydrochlorothiazide (By mouth), Aspirin (By mouth), Nicotine (Absorbed through the skin), Sertraline (By mouth), Ticagrelor (By mouth), Apixaban (By mouth), Atrial Fibrillation (DC), Left Heart Catheterization (DC), How to Stop Smoking ( GEN), Coronary Intravascular Stent Placement (DC), Pneumonia (DC), Pneumonia ( GEN) Follow Up With: Evans Soriano HAND BINDERY ASSEMBLY WORKER [Advanced Practice Nurse] - (Cardiology office will call patient at home with follow up appointment) MARIANA,PCP [Primary Care Provider] - 03/24/17 1:30 pm Additional Instructions: RISK FACTORS: STOP SMOKING: If you smoke, STOP. Smoking or tobacco use significantly increases your risk of heart disease because nicotine causes the arteries to narrow or constrict. It also causes fats to stick to the artery. Your chances of having a heart attack are greatly increased if you continue to smoke. For more information, call the education line for smoking cessation 1-559-RNVNWDU EAT A LOW FAT/CHOLESTEROL/SODIUM DIET: This diet may help reduce your chances of having a heart attack. LIFTING: Avoid lifting anything more than 10 pounds for 5-7 days Prior to straining, laughing, sneezing and/or coughing, apply manual pressure directly over insertion site. ACTIVITY: You may walk or climb stairs as tolerated You can resume sexual activity as tolerated In general, you are encouraged to engage in a minimum of 30 minutes or more of moderate intensity physical activity, such as brisk walking, daily or at least 3 -4 times weekly BATHING Do not submerge the site into water (bath tub, hot tub, swimming pool) for 1 week. This can be a source for infection into the blood stream. You may shower after 24 hours SITE CARE: After 24 hours, you may remove the dressing and leave the site open to air. Keep the site clean and dry. Clean gently and pat dry. You can expect bruising and tenderness that gradually resolve within a week or two. Return to work as instructed per your physician Resume driving as instructed per physician Keep all scheduled follow up appointments Resume medications as instructed IMPORTANT: If prescribed a Platelet Aggregation Inhibitor such as, Plavix, Brilinta or Effient: Duration of therapy is minimum one year These medications are often used in combination with Aspirin in prevention of future heart attacks Never discontinue unless consult with your Table Cut Off Saw Operator STROKE (CVA) Risk factors for a stroke are: Age, cigarette smoking, diabetes, excessive alcohol consumption, family history, high blood pressure, overweight, physical inactivity, prior stroke, heart attack, diagnosis of carotid artery stenosis or other artery disease. Warning signs: Sudden numbness or weakness of the face, arm or leg; especially on one side of the body, sudden confusion, trouble speaking or understanding, sudden trouble seeing in one or both eyes, sudden trouble walking, dizziness, loss of balance or coordination, sudden severe headache with no cause. Call 911 or go to the Emergency Room. CONGESTIVE HEART FAILURE: If you have been diagnosed with Congestive Heart Failure (CHF) and your symptoms return, make an appointment with your physician Weigh yourself daily. Notify your physician if you have a weight gain of two or more pounds in one day or five or more pounds in one week. If you experience any difficulty breathing, please call 911 BLEEDING: Although the risk of bleeding is minimal, it can happen. If you have any bleeding from the site, apply firm pressure above the puncture site for 10-15 minutes. If the bleeding does not stop, continue manual pressure and call 911 Contact your physician if: You develop a fever greater than 101 degrees Fahrenheit Your site becomes reddened or has any drainage You have an increase in pain or burning at the site or if a large knot forms at the site. If you experience chest pain, shortness of breath, dizziness, or extreme tiredness, stop the activity and rest. Please notify your physicians office if you experience any of these symptoms and they are not relieved by rest please call 911!finish antibiotcs as prescribed. Please take all medications as prescribed. follow up with PCP within one week of discharge follow up with cardiology please return to emergency department if you develop increasing shortness of breath, chest pain, fever, chills - Diet and Activity Activity: increase activity as tolerated Diet: low fat, low cholesterol Hospital course: Mr. Bai is a 66 year old male of Afib, COPD (steroid dependent), CAD, fibromyalgia, HLD, HTN, valvular heart disease, GERD. Patient arrived to [facility] on 03/13/15 with Chief complaint of epigastric abdominal pain with diaphoresis, and [facility] Afib [facility]. Patient was septic secondary to pneumonia. chest CTA showed no evidence of PE, stable severe chronic cavitry changes of the upper lungs with lunderlying cystic bronchiectasis and hilar retraction consistent qith sequela of chronic infection or inflammation. There was concern for TB so patient was immediately placed on contact precautions. several days later, quanteferon test came back negative. Patient was initially placed on broad spectrum antibiotics that were later de escalated based upon blood cultures. Patient was in Afib RVR likely secondary to sepsis. He was not on anticoagulation prior due to low CHADS/VASC score, but was started on ELiquis by cardiology during his hospitalization. He eventually converted back to sinus rhythm. patient's hospital course was complicated by NSTEMI. He had cardiac catheterization on 03/17/17, showing severe two vessel coronary artery disease. Patient had successful PTCA/Drug eluting stent placed in the proximal RCA. He was started on Brilllinta afterwards. Patient did well after his left heart catheterization. He was transitioned to oral antibiotics based on sensitivities from blood cultures, and was discharged home in stable condition. He was counseled on smoking cessation during his hospital stay. Plan: finish antibiotcs as prescribed. Please take all medications as prescribed. follow up with PCP within one week of discharge follow up with cardiology please return to emergency department if you develop increasing shortness of breath, chest pain, fever, chills - Time Spent with Patient Total time spent providing and/or coordinating discharge services: - Constitutional Vitals: Temp Pulse Resp BP Pulse Ox 97.6 F 61 13 112/66 96 03/18/17 11:14 03/18/17 11:14 03/18/17 11:14 03/18/17 11:14 03/18/17 11:14 General appearance: Present: cooperative, A&O X 3, no acute distress, answers questions appropriately - Head Head exam: Present: atraumatic, normocephalic - Neck Neck exam general surgery: Present: supple, trachea midline - Respiratory Additional comments: diffuse rales and rhonchi - Cardiovascular Cardiovascular exam: Present: RRR, +S1, +S2 - GI/Abdominal GI/Abdominal exam: Present: normal bowel sounds, soft. Absent: distended, tenderness - Extremities Exam Extremities exam: Present: pedal edema. Absent: cyanotic - Neurological Exam Neurological exam: Present: alert, oriented X3, no focal deficits - Psychiatric Psychiatric exam: Present: normal affect, normal mood <Patrick Alaniz - Last Filed: 03/18/17 13:05> Date of Encounter: 03/18/17 Procedures/tests Complete & Pending: Procedures Performed prior 72 hours Category Date Time Status CL Cardiac Catheterization [CL] Routine Presentation Designer 03/17/17 09:04 Completed ECG 12 lead ECG [ECG] Stat Y 03/17/17 11:45 Completed Date of admission: 03/13/17 01:44 Primary care physician: [facility] Consults: 03/13/17 03:40 Consult to Butcher Scullion [CONS] Routine Reason for SW Consult: Possible need for home services. 03/13/17 23:09 Consult to Cardiology [CONS] Routine Comment: Consulting Provider: Cardiology [place] Reason for Consult: Chest pain, Sepsis, Elevated troponin Call Completed: No 03/17/17 11:51 Consult to Cardiac Rehabilitation-Phase1 [CONS] Routine Comment: Reason for Consult: post op cath Call Completed: Yes Hospital course: Mr. Bai is a 66 year old male - Time Spent with Patient Total time spent providing and/or coordinating discharge services: - Constitutional Vitals: Temp Pulse Resp BP Pulse Ox 97.6 F 61 13 112/66 96 03/18/17 11:14 03/18/17 11:14 03/18/17 11:14 03/18/17 11:14 03/18/17 11:14 - Attending Attestation - Sepsis 2ry to gram negative pneumonia ( Alcaligenes denitrificans) complete treatment with Bactrim - NSTEMI I examined this patient and my medical decision-making was reviewed with the Resident Physician. I agree with the documented findings, disposition and treatment plan as described except to the extent set forth below.
[2017-03-18] MEDS ORDERED: FLUARIX QUAD 2017-18 36MOS UP/PF 0.5 ML SYRINGE IM ONE (13:00)
== END 2017-03-18 13:43 | disposition home or self-care (01) | DRG 853 ==
LOC: EMEROO 22:22 → 2NNU 03-13 01:44 → SUATTDRO 03-13 01:44 → 2NNU 03-13 02:29
PROVIDERS: ADMIT Internal Medicine; ATTEND Internal Medicine

== ENCOUNTER 2017-06-06 06:41 | Inpatient (IN) ==
--- NOTE | 2017-06-06 06:57 | Emergency Department Note ---
Disposition Clinical Impression: HCAP (healthcare-associated pneumonia), Atrial fibrillation with RVR, NSTEMI ( non-ST elevated myocardial infarction) Sepsis Qualifiers: Sepsis type: sepsis due to unspecified organism Qualified Code(s): A41.9 - Sepsis, unspecified organism Disposition: Admitted As Inpatient Condition: Serious Time of Disposition: 08:48 Arrhythmia/Palpitations HPI - General Chief Complaint: ED Arrhythmia/Palpitations Stated Complaint: A. fib RVR Time Seen by Provider: 06/06/17 06:57 Source: patient, family, EMS Limitations: no limitations Nursing Notes Reviewed: Yes Vital Signs Reviewed: Yes - History of Present Illness HPI Narrative: 66-year-old male with history of CAD, COPD, on Eliquis for anticoagulation for paroxysmal atrial fibrillation, presents with rapid heart rate, shortness of breath. Patient states that he woke up feeling shortness of breath and dizziness. His states that he has been symptomatically last 3 days with chest pain 6 out of 10 in his mid chest making him more short of breath. She finally was able to get him to come into the ED. He has had wheezing and productive cough. The patient also had a recent right coronary artery stent placed during hospitalization in February as, kidney by pneumonia. The patient at this time denies hemoptysis, he has been compliant on Eliquis however he did miss one dose yesterday. Patient reports intermittent low-grade fevers, denies abdominal pain nausea vomiting diarrhea constipation. Denies hematochezia or melena Pt Subjective Complaint: "heart racing", palpitations, atrial fibrillation Onset (ago): day(s) (3) Duration: intermittent Severity: moderate Arrhythmia History: atrial fibrillation, on anti-coagulants Associated symptoms: Reports: chest pain, shortness of breath, nausea. Denies: vomiting, anxiety - Related Data Home Medications Medication Instructions Recorded Confirmed Albuterol Neb [Proventil Neb] 2.5 mg IH TID 02/19/17 06/06/17 Albuterol Sulfate [Albuterol 2 puff IH Q6H PRN 02/19/17 06/06/17 Inhaler] Alendronate Sodium [Fosamax] 70 mg PO WE 02/19/17 06/06/17 Atorvastatin [Lipitor] 40 mg PO HS 02/19/17 06/06/17 Budesonide/Formoterol 160/4.5 2 puff IH BIDR 02/19/17 06/06/17 [Symbicort 160/4.5] Cetirizine HCl [All Day Allergy] 10 mg PO DAILY 02/19/17 06/06/17 Gabapentin [Neurontin] 900 mg PO TID 02/19/17 06/06/17 Melatonin 10 mg PO HS PRN 02/19/17 06/06/17 Omeprazole [PriLOSEC] 20 mg PO DAILY 02/19/17 06/06/17 Oxycodone HCl/Acetaminophen 1 each PO 5XD PRN 02/19/17 06/06/17 [Percocet 10-325 mg Tablet] Theophylline Anhydrous [Oliver-24] 200 mg PO DAILY 02/19/17 06/06/17 Verapamil HCl [Verapamil ER] 180 mg PO DAILY 02/19/17 06/06/17 Sertraline [Zoloft] 150 mg PO DAILY 06/06/17 06/06/17 Previous Rx's Medication Instructions Recorded predniSONE [PredniSONE] 10 mg PO DAILY #0 02/22/17 Acetaminophen [Tylenol] 650 mg PO Q6HR PRN tablet 03/18/17 Apixaban [Eliquis] 5 mg PO BID #60 tablet 03/18/17 Aspirin 81 mg PO DAILY #30 tab.chew 03/18/17 Metoprolol [Lopressor] 25 mg PO BID #60 tablet 03/18/17 Nicotine Patch [Nicoderm] 21 mg TD DAILY #30 patch.td24 03/18/17 hydroCHLOROthiazide 12.5 mg PO DAILY 30 Days #30 tablet 03/18/17 [Hydrochlorothiazide] Allergies Allergy/AdvReac Type Severity Reaction Status Date / Time tiotropium Allergy Rash Verified 03/15/16 22:23 [From Spiriva with HandiHaler] bee stings AdvReac Anaphylaxis Uncoded 02/19/17 14:16 All systems ED: reviewed and negative except as stated. Constitutional: Reports: fever Eyes: Denies: eye pain ENT ED: Denies: ear pain Cardiovascular: Reports: as per HPI, chest pain, palpitations, dyspnea on exertion. Denies: paroxysmal nocturnal dyspnea Respiratory: Reports: cough, dyspnea, wheezes. Denies: hemoptysis Gastrointestinal: Denies: abdominal pain, nausea, hematemesis, melena Genitourinary: Denies: urgency Musculoskeletal: Denies: back pain Integumentary: Denies: rash Past Medical History - Past Medical History Attestation: Yes The following information was validated with the patient. Source: patient Medical history: Reports: atrial fibrillation, COPD, fibromyalgia, GERD, hyperlipidemia, hypertension Surgical history: Reports: appendectomy, other Psychiatric history: Reports: anxiety, depression - Social History Smoking Status: Current every day smoker Smokeless Tobacco Status: No Alcohol use: Reports: none Drug use: Reports: none Physical Exam Constitutional: She appears in moderate respiratory distress, tachycardic irregular in the 160s. Eyes: PERRLA, sclera anicteric ENT & Mouth: MM dry Neck: normal inspection, neck is supple Resp: Coarse respiratory sounds bilaterally, expiratory wheezes pursed lip breathing. CV: Irregularly irregular rhythm no pedal edema. GI: normal inspection, soft, no guarding or rigidity Neuro: A&O3, CNII-XII grossly intact, NGUYEN Skin: on limited exam, skin intact with no rashes or lesions - General Limitations: no limitations General appearance: alert, anxious Course Course Narrative: 66-year-old male A. fib with RVR, we will try Cardizem bolus and drip, the patient will get stat labs CBC BMP troponin PT/INR VBG, will talk with cardiology patient reporting analyst to discuss that he has some likely rate-related ischemic changes with ST segment depressions and borderline ST segment elevations in aVR - Reevaluation(s) Reevaluation #1: Plan will be for admission to the inpatient hospitalist service with cardiology consult. Patient started on broad-spectrum antibiotics with Zosyn, plan is for admission currently on amiodarone drip of 1 mg/m, Cardizem up to 20, 1 L fluid bolus given, broad-spectrum antibiotics started heparinization started aspirin given patient hemodynamically stable and serious condition prior to transfer Time: 08:52 Reevaluation #2: Spoke with the lamp inspector Dr. Verduzco, she still recommends against activation states this is not clear-cut STEMI, however given his worsening ischemic changes she does recommend transfer to the Bartender Manager at this time, the Bartender Manager is on their way to chart picker the patient, he is hemodynamically stable satting 100 % laying somewhat supine, pressure with 118/61, 88 sinus rhythm, 5 EKGs were obtained on the patient, recommendation persistently from cardiology was against Activation, They Did Recommend BiPAP As Well with Pulmonology, However the Patient ABG Showed No Evidence of Hypoxemia, or Acidemia, Is 7.34 with a PCO2 40 and a PaO2 of 21. Plan is for Cath and then ICU after cath, Sepsis, NSTEMI, Afib RVR now rate controlled Time: 10:16 - Consultations Consultation #1: With relocation services specialist on-call doctor Carlos talavera, he stated that given the patient had a rate of 180 down to 150, likely this was rate dependent ischemic changes and he recommended against activation of STEMI alert, however I discussed that I did want him to evaluate the EKG if at all possible to verify that this was not meet criteria given that there is elevation in aVR and aVL. With diffuse ischemic changes in the inferior and precordial leads. He reached reviewed EKG he recommended Xopenex and amiodarone bolus of the patient's unstable cardioversion. Time: 07:50 Consultation #2: The lamp inspector called back at 07:56 after reviewing the EKG he did say there was some concern for given the ischemic changes, that you could activate the catheter lab in order to immobilize Bartender Manager team, but not clearcut about STEMI , we are trying rate control strategies at this time Cardizem is up to 10, will increase, patient tolerated this with his blood pressure he still having chest pain with some dizziness with the pads on the patient at this time, ordering fluid bolus amiodarone bolus Xopenex treatment, at this point. Repeated an EKG at 07 56, this EKG shows no STEMI criteria continued ischemic changes in V4 V5 V6 less than 1 mm elevations in aVR and aVL. Time: 07:56 Consultation #3: Evans Soriano CNP evaluated the patient at bedside, I did speak with Dr. lama as well, given the repeat EKG shows no ischemic ST elevations, however does have diffuse ischemic changes with a heart rate of 136, there is no indication for Active or Activation, Agrees with Amiodarone Bolus and Drip, Plan Is for Admission to Hospitalist Service, Dr. Holm also evaluated the patient at bedside , he does not white count of 18 but does not meet criteria for septic shock is lactate 1.5, he likely has sepsis with pneumonia, COPD exacerbation, respiratory failure A. fib with RVR, treated with Zosyn azacitidine coverage from his previous sputum culture oral beck, cardiology consult urgent, plan for urgent catheter heparinization, but no operations label clerk activation Time: 08:30 Additional Consultation(s): 9:20 we performed cardioversion 200 J biphasic, for heart rate of the 180s, the patient was dyspneic, short of breath starting to get worsening chest pain, felt like he was burning all over, he was given anxiolysis and analgesia prior to cardioversion. Cardioversion his rate went from 180s down to 120s, his blood pressure is 125/80 patient remained hemodynamically stable placed on nasal cannula, satting 100%, we did repeat draw ABG, I discussed with the fish salter on-call who came down and evaluated the patient as well as cardiology Dr. Verduzco who came down to evaluate the patient. The repeat EKG showed concerning ST segment elevations in V1 and V2. Vital Signs Temperature 99.6 F 06/06/17 06:43 Pulse Rate 178 06/06/17 06:43 Respiratory Rate 20 06/06/17 06:43 Blood Pressure 137/88 06/06/17 06:43 O2 Sat by Pulse Oximetry 99 06/06/17 06:43 Temperature 98.5 F 06/07/17 20:10 Pulse Rate 90 06/07/17 20:10 Respiratory Rate 18 06/07/17 20:10 Blood Pressure 140/77 06/07/17 20:10 O2 Sat by Pulse Oximetry 93 06/07/17 20:10 Oxygen Delivery Oxygen Delivery Nasal Cannula Arrhythmia/Palpitations - Differential Diagnosis Differential Diagnosis: Likely: sinus tachycardia, artial arrhythmia, metabolic/ electrolyte disturbance - Medical Records Medical records reviewed: Yes I reviewed the patient's medical records. - Lab Data Lab results reviewed: Yes I reviewed the patient's lab results. Result diagrams: 06/07/17 04:28 06/07/17 04:28 Lab Results 06/06/17 06/06/17 06/06/17 Range/Units 07:23 07:23 07:23 WBC 18.7 H (4.3-11.1) K/mcL RBC 4.84 (4.19-5.50) M/mcL Hgb 13.2 (12.9-16.9) g/dL Hct 41.4 (37.5-50.1) % MCV 85.5 (83.0-100.0) fL MCH 27.3 L (28.0-33.3) pg MCHC 31.9 (31.6-35.5) g/dL RDW 15.9 H (11.5-14.5) % Plt Count 268 (140-400) K/mcL MPV 9.0 L (9.4-12.4) fL Immature Gran % 0.8 (0-4) % Seg Neutrophils % 81.4 % Lymphocytes % 9.2 % Monocytes % 7.8 % Eosinophils % 0.5 % Basophils % 0.3 % Neutrophils # 15.3 H (1.6-8.9) K/mcL Lymphocytes # 1.7 (0.6-4.6) K/mcL Monocytes # 1.5 H (0.0-1.3) K/mcL Eosinophils # 0.1 (0.0-0.6) K/mcL Basophils # 0.1 (0.0-0.2) K/mcL PT 15.1 H (9.4-12.1) Seconds INR 1.4 APTT 35.6 (26.0-36.0) Seconds ABG pH (7.32-7.45) pH Units ABG pCO2 (35-45) mmHg ABG pO2 (85-104) mmHg ABG HCO3 (21-27) mEq/L ABG Total CO2 (20-26) mEq/L ABG O2 Saturation (95-98) % ABG Base Excess (-2 to 3) mEq/L VBG pH (7.32-7.42) pH Units VBG pCO2 (41-51) mmHg VBG pO2 (25-50) mmHg VBG HCO3 (21-27) mEq/L Sodium 134 L (136-145) mEq/L Potassium 3.6 (3.5-4.5) mEq/L Chloride 94 L (98-109) mEq/L Carbon Dioxide 27 (19-29) mEq/L BUN 20 (8-26) mg/dL Creatinine 0.82 (0.72-1.25) mg/dL Est GFR ( Amer) > 60 (> 60) Est GFR (Non-Af Amer) > 60 (> 60) BUN/Creatinine Ratio 24 (6-26) Glucose 98 (70-99) mg/dL Calculated Osmolality 281 (280-300) Lactic Acid (0.5-2.2) mmol/L Calcium 9.2 (8.6-10.8) mg/dL Troponin I (0-0.03) ng/mL TSH 1.869 (0.340-5.600) mcIU/mL 06/06/17 06/06/17 06/06/17 Range/Units 07:23 07:23 07:44 WBC (4.3-11.1) K/mcL RBC (4.19-5.50) M/mcL Hgb (12.9-16.9) g/dL Hct (37.5-50.1) % MCV (83.0-100.0) fL MCH (28.0-33.3) pg MCHC (31.6-35.5) g/dL RDW (11.5-14.5) % Plt Count (140-400) K/mcL MPV (9.4-12.4) fL Immature Gran % (0-4) % Seg Neutrophils % % Lymphocytes % % Monocytes % % Eosinophils % % Basophils % % Neutrophils # (1.6-8.9) K/mcL Lymphocytes # (0.6-4.6) K/mcL Monocytes # (0.0-1.3) K/mcL Eosinophils # (0.0-0.6) K/mcL Basophils # (0.0-0.2) K/mcL PT (9.4-12.1) Seconds INR APTT (26.0-36.0) Seconds ABG pH (7.32-7.45) pH Units ABG pCO2 (35-45) mmHg ABG pO2 (85-104) mmHg ABG HCO3 (21-27) mEq/L ABG Total CO2 (20-26) mEq/L ABG O2 Saturation (95-98) % ABG Base Excess (-2 to 3) mEq/L VBG pH 7.38 (7.32-7.42) pH Units VBG pCO2 50 (41-51) mmHg VBG pO2 28 (25-50) mmHg VBG HCO3 30 H (21-27) mEq/L Sodium (136-145) mEq/L Potassium (3.5-4.5) mEq/L Chloride (98-109) mEq/L Carbon Dioxide (19-29) mEq/L BUN (8-26) mg/dL Creatinine (0.72-1.25) mg/dL Est GFR ( Amer) (> 60) Est GFR (Non-Af Amer) (> 60) BUN/Creatinine Ratio (6-26) Glucose (70-99) mg/dL Calculated Osmolality (280-300) Lactic Acid 1.5 (0.5-2.2) mmol/L Calcium (8.6-10.8) mg/dL Troponin I 0.09 H* (0-0.03) ng/mL TSH (0.340-5.600) mcIU/mL 06/06/17 Range/Units 09:54 WBC (4.3-11.1) K/mcL RBC (4.19-5.50) M/mcL Hgb (12.9-16.9) g/dL Hct (37.5-50.1) % MCV (83.0-100.0) fL MCH (28.0-33.3) pg MCHC (31.6-35.5) g/dL RDW (11.5-14.5) % Plt Count (140-400) K/mcL MPV (9.4-12.4) fL Immature Gran % (0-4) % Seg Neutrophils % % Lymphocytes % % Monocytes % % Eosinophils % % Basophils % % Neutrophils # (1.6-8.9) K/mcL Lymphocytes # (0.6-4.6) K/mcL Monocytes # (0.0-1.3) K/mcL Eosinophils # (0.0-0.6) K/mcL Basophils # (0.0-0.2) K/mcL PT (9.4-12.1) Seconds INR APTT (26.0-36.0) Seconds ABG pH 7.34 (7.32-7.45) pH Units ABG pCO2 44 (35-45) mmHg ABG pO2 211 H (85-104) mmHg ABG HCO3 24 (21-27) mEq/L ABG Total CO2 25 (20-26) mEq/L ABG O2 Saturation 100 H (95-98) % ABG Base Excess -2 (-2 to 3) mEq/L VBG pH (7.32-7.42) pH Units VBG pCO2 (41-51) mmHg VBG pO2 (25-50) mmHg VBG HCO3 (21-27) mEq/L Sodium (136-145) mEq/L Potassium (3.5-4.5) mEq/L Chloride (98-109) mEq/L Carbon Dioxide (19-29) mEq/L BUN (8-26) mg/dL Creatinine (0.72-1.25) mg/dL Est GFR ( Amer) (> 60) Est GFR (Non-Af Amer) (> 60) BUN/Creatinine Ratio (6-26) Glucose (70-99) mg/dL Calculated Osmolality (280-300) Lactic Acid (0.5-2.2) mmol/L Calcium (8.6-10.8) mg/dL Troponin I (0-0.03) ng/mL TSH (0.340-5.600) mcIU/mL - Radiology Data Radiology results reviewed: Yes I reviewed the patient's radiology results. Chest X-Ray 06/06/17 06:55 IMPRESSION: Chronic lung changes including COPD with biapical bulla/blebs and adjacent scarring. The left upper lobe opacity appears worsened since February 2017. Superimposed infection would be difficult to exclude. D/ / 06/06/2017 07:39:02 [facility] Interpre[facility] Provider: Loretta Gao MD - EKG Data EKG attestation: Yes I reviewed and interpreted this EKG. Rate: tachycardia Rhythm: A.Fib (179 QRS98 Qtc 353) ST segment elevation in: aVR ST segment depression in: II, III, aVF, v3, v4, v5, v6 QTc: shortened When compared to previous EKG there are: changes noted Interpretation: nonspecific ST-T wave changes, other (Repeat EKG at 657 shows persistent AFib 139 ischemic changes in the precordial and inferior leads ST segment depressions, borderline ST segment elevation less than 1 mm in aVR and aVL repeat EKG at [address] segment elevations inferior depressions in V4 through V6 continued atrial fibrillation rate of 136) - Core Measures AMI Core Measures Followed: Yes Critical Care Time Critical Care Time: Yes Total Critical Care Time: 60 Attestation: The high probability of a clinically significant, sudden or life threatening deterioration of the [CV/RESP] system(s) required my full and direct attention, intervention and personal management. The aggregate critical care time was [60] minutes. This time is in addition to time spent performing reported procedures but includes the following: [x] Data Review and interpretation [x] Patient assessment and monitoring of vital signs [x] Documentation [x] Medication orders and management Attestation Statement - Attestation Attestation: I examined this patient and my medical decision-making was reviewed with the Resident Physician, Dr. Villalta. I agree with the documented findings, disposition and treatment plan as described except to the extent set forth below. He is a 66-year-old white male with multiple medical problems including severe COPD, CAD with recent heart catheterization, recent VA, who presents to the emergency department by EMS this morning and was actually signed out to us on arrival to our shift this morning for A. fib with RVR. According to patient's he has been feeling bad complaining of increasing chest pain for the past 2 -3 days, and woke up this morning and states he seemed a little confused was complaining of dizziness and shortness of breath as well as worsening substernal chest pain. He is on 2 L nasal cannula oxygen at home at all times and the cnc machinist 2nd shift team with Dr. Chacko did an initial assessment, had him attempt to monitor and pulse ox IV was established and he been given 10 mg of Cardizem IV and a Cardizem drip had been ordered prior to my taking over his care. On my assessment the patient did not respond to the initial Cardizem bolus, and heart rate was ranging 140s to 150s with a stable blood pressure and pulse ox was 100% on 2 L nasal cannula with no respiratory distress. Patient does have some slight pursed lip breathing and tachypnea but doing fairly well considering his rate. Patient's main complaint is some substernal heaviness that he is having as well as some dizziness. After our initial assessment we asked for a repeat Cardizem bolus, initiation of the Cardizem drip and we will reevaluate. His EKG on arrival was A. fib with RVR with significant ST depression in the inferolateral leads and ST elevation in aVR which was concerning for possible STEMI criteria although felt this was rate related as his heart rate at the time was in the 170s. We did go ahead and consult cardiology immediately upon review of the EKG, sent pictures of the EKG and discussed his course at this time. Cardiology recommended repeat bolus of Cardizem, Cardizem drip and attempting amiodarone with possible cardioversion if there is no response. Continue to watch the patient closely his blood pressures remain stable throughout his ED course. His respiratory status is not changed and he is receiving a Xopenex breathing treatment at this time. Patient's portal chest x- ray showed some worsening of a left upper lobe infiltrate, upon review his old records patient was hospitalized recently for sepsis related to pneumonia. Based on his culture results he should be placed on Zosyn, we are holding off on fluid boluses at this time based on his cardiac status, and lactate is within normal limits. Patient did not respond to the second bolus of Cardizem as well as increasing the drip. We initiated an amiodarone bolus which seemed to finally get his heart rate into the 110's with a stable blood pressure. Troponin is elevated at 0.09. We did call the morning lamp inspector he is on to give them an update of patient's status. Repeat EKG shows persistent ST depression but improvement in aVR and does not meet STEMI criteria this time although I think patient would benefit from a heart catheter today as my suspicion is that his COPD and pulmonary infection may have contributed to his onset of A. fib with RVR which is creating a demand ischemia. We will continue to monitor the patient closely , cardiology has been down to bedside to see the patient and agree with admission with catheter later today. He missed his recent Holquist dose we will start him on heparin and he has received aspirin. We have covered him with antibiotics for questionable pulmonary infection as well. We discussed the case with the hospitalist who accepted the patient for admission to intermediate level bed. Pt developed return to rapid a fib rhythm, with XK=835's and symptomatic. Pt ultimately required electrical cardioversion. Please see procedure note. Pt tolerated well, and return to SR. Repeat EKG shows ST elev, V1/V2, which is new compared to prior EKG's. Notified Cardio, who came to ED to re-evaluate pt,a nd took him to operations label clerk. Updated medicine service. Pt admitted to ICU from operations label clerk.
[2017-06-06] MEDS ORDERED: Aspirin 325 MG TABLET PO ONE (07:02)
[2017-06-06] MEDS: dilTIAZem HCl 100 MG in D5% in Water 50 ML IVC SCH ×2 (07:12→18:15)
[2017-06-06] MEDS ORDERED: Adenosine 90 MG/30 ML MLS IV ONE (07:36)
[2017-06-06 07:41] LABS: Basophils # 0.1 K/mcL (0.0-0.2); Basophils % 0.3 %; Eosinophils # 0.1 K/mcL (0.0-0.6); Eosinophils % 0.5 %; Hematocrit 41.4 % (37.5-50.1); Hemoglobin 13.2 g/dL (12.9-16.9); Immature Granulocytes % 0.8 % (0-4); Lymphocytes # 1.7 K/mcL (0.6-4.6); Lymphocytes % 9.2 %; Mean Corpuscular HGB Conc 31.9 g/dL (31.6-35.5); Mean Corpuscular Hemoglobin 27.3 pg (28.0-33.3); Mean Corpuscular Volume 85.5 fL (83.0-100.0); Monocytes # 1.5 K/mcL (0.0-1.3); Monocytes % 7.8 %; Neutrophils # 15.3 K/mcL (1.6-8.9); Platelet Count 268 K/mcL (140-400); Red Blood Count 4.84 M/mcL (4.19-5.50); Red Cell Distribution Width 15.9 % (11.5-14.5); Segmented Neutrophils % 81.4 %
[2017-06-06] MEDS ORDERED: Amiodarone Premix 150 MG/100 ML BAG IVPB ONE (07:44)
[2017-06-06] MEDS ORDERED: Amiodarone Premix 360 MG/200 ML BAG IVC ONE ×2 (07:44→08:16)
[2017-06-06 07:46] LABS: INR 1.4; Prothrombin Time 15.1 Seconds (9.4-12.1)
[2017-06-06 07:48] LABS: VBG HCO3 30 mEq/L (21-27); VBG PCO2 50 mmHg (41-51); VBG PH 7.38 pH Units (7.32-7.42); VBG PO2 28 mmHg (25-50)
[2017-06-06 07:49] LABS: Activated Partial Thrombo Time 35.6 Seconds (26.0-36.0)
[2017-06-06 07:52] LABS: BUN/Creatinine Ratio 24 (6-26); Blood Urea Nitrogen 20 mg/dL (8-26); Calcium 9.2 mg/dL (8.6-10.8); Carbon Dioxide 27 mEq/L (19-29); Chloride 94 mEq/L (98-109); Glucose 98 mg/dL (70-99); Osmolality,Calculated 281 (280-300); Potassium 3.6 mEq/L (3.5-4.5); Sodium 134 mEq/L (136-145); eGFR For African Americans > 60 (> 60); eGFR For Non-African Americans > 60 (> 60)
[2017-06-06] MEDS ORDERED: 0.9 % Sodium Chloride 500 ML IVC ONE ×2 (08:03→08:49)
[2017-06-06] MEDS: Levalbuterol Neb 1.25 MG/3 ML IH SCH ×2 (08:12→10:30)
[2017-06-06] MEDS ORDERED: Piperacillin/Tazobactam 3.375 GM in D5% in Water (Mini-Bag+) 100 ML IVPB ONE (08:17)
[2017-06-06] MEDS ORDERED: Levofloxacin 750 MG/150 ML 750 MG/150 ML BAG IVPB ONE ×2 (08:17→09:25)
[2017-06-06] MEDS ORDERED: Vancomycin 1,000 MG in D5% in Water 250 ML IVPB ONE ×2 (08:17→09:24)
[2017-06-06] MEDS ORDERED: Heparin 25,000 UNIT/500 ML D5W 25,000 UNIT/500 ML BAG IVC SCH (08:30)
[2017-06-06] MEDS ORDERED: Piperacillin/Tazobactam 3.375 GM in Water for inj. (sterile) 20 ML 20 ML IVP ONE (08:46)
[2017-06-06] MEDS ORDERED: *HR* Midazolam HCl 2 MG/2 ML VIAL IVP ONE (09:09)
[2017-06-06] MEDS ORDERED: *HR* FentaNYL (PF) 100 MCG/2 ML VIAL IVP ONE (09:09)
[2017-06-06] MEDS ORDERED: 0.9 % Sodium Chloride 1,000 ML ONE ×4 (09:18→10:38)
[2017-06-06] MEDS ORDERED: 0.9 % Sodium Chloride 1,000 ML IVC ONE (09:25)
[2017-06-06 09:57] LABS: ABG Base Excess -2 mEq/L (-2 to 3); ABG HCO3 24 mEq/L (21-27); ABG Oxygen Saturation 100 % (95-98); ABG PCO2 44 mmHg (35-45); ABG PH 7.34 pH Units (7.32-7.45); ABG PO2 211 mmHg (85-104); ABG TCO2 25 mEq/L (20-26)
[2017-06-06] MEDS ORDERED: methylPREDNISolone 125 MG/2 ML VIAL IVP ONE (09:59)
[2017-06-06] MEDS ORDERED: *HR* Midazolam HCl 5 MG/5 ML VIAL IVP ONE (10:16)
[2017-06-06] MEDS ORDERED: *HR* FentaNYL (PF) 250 MCG/5 ML VIAL ONE (10:16)
[2017-06-06] MEDS ORDERED: *HR* Heparin 10,000 UNIT/10 ML VIAL ONE (10:38)
[2017-06-06] MEDS ORDERED: Nitroglycerin 1,000 MCG/10 ML VIAL IV ONE (10:39)
--- NOTE | 2017-06-06 10:39 | Pre-Sedation Evaluation ---
Pre-sedation evaluation - Pre-sedation checklist Date of procedure: 06/06/17 Procedure: Left heart cath Recent Vitals: Last Vital Signs Temp 99.6 F 06/06/17 06:43 Pulse 94 06/06/17 10:12 Resp 18 06/06/17 10:12 BP 118/61 06/06/17 10:12 Pulse Ox 100 06/06/17 10:12 H&P (including ROS) documented in medical record: Yes Previous reaction to sedatives/anesthetics: No Dietary Status: NPO after Midnight Airway Assessment: Patient can open mouth completely, TMJ function normal, Micrognathia (under-bite, receding chin) absent, Neck with adequate range of motion Dentition: dentures removed Possible difficult airway: No ASA Classification *see protocol: [id number] to any of the above to indicate emergent Plan of Care: Pt appropriate candidate for procedure/moderate/conscious sedation , Risks/benefits of procedure/sedation discussed w/ patient/family
[2017-06-06] MEDS ORDERED: D5% in Water 100 ML ONE (10:45)
--- NOTE | 2017-06-06 10:55 | Cardiology Consult Note ---
<Evans Soriano - Last Filed: 06/06/17 15:04> Date of Encounter: 06/06/17 Time of Encounter: 07:40 (seen again with Dr. Verduzco around 0945) Assessment and Plan (1) Acute exacerbation of chronic obstructive airways disease Current Visit: No Status: Acute Per Cardiology: Seen in ER with suspected acute on chronic COPD exac. Has severe COPD. Pulm seeing. (2) Atrial fibrillation with RVR Current Visit: Yes Status: Acute Per Cardiology: Known history of paroxysmal atrial fibrillation. Noted to be A. fib RVR in the 160s to 180s. On IV Cardizem drip and status post amiodarone bolus with heart rate fluctuating 110s to 130s. Patient reevaluated on amiodarone drip status post DC clinic version per ER with conversion to sinus tachycardia. Remains on amiodarone and Cardizem drip. Recommendations to initiate IV heparin drip. Patient reportedly missed Eliquis yesterday. Can evaluate resuming during this hospital stay after catheterization. (3) NSTEMI (non-ST elevated myocardial infarction) Current Visit: Yes Status: Acute Per Cardiology: Trop only 0.09 in setting of acute on chronic COPD exac and afib RVR. ECG reviewed with ST depressions throughout and elevations in aVL and aVR. Reviewed and discussed with Dr. Diana Thomas, no STEMI alert warranted. Repeat ECGs reviewed after DC cardioversion which shows sinus tachycardia and ST elevations in V1, V2 comparable to baseline. General ST depressions slightly improved. Patient was taken to laboratory aide urgently for eval of known LAD lesion. No STEMI again activated-- was no warranted per Dr. Verduzco and Dr. Diana Thomas. Further recs after [facility]. Discussion w patient/family: The assessment and plan as outlined above was discussed with the patient and/or family members who expressed understanding and agreement. All questions were answered. Thank you for involving us in the care of your patient. Please call with any questions. History of Present Illness Consult date: 06/06/17 Requesting physician: David Villalta Consult reason: Afib RVR, ECG changes, SOB Chief complaint: SOB History of present illness: Mr. Bai is a 66 year old male with a relevant past medical history of CAD , COPD (steroid dependent), paroxysmal atrial fibrillation, fibromyalgia, hyperlipidemia, hypertension, GERD, and nicotine abuse. Patient previosuly seen by Cardiology and was being monitored for potential staged PCI of LAD. At last visit 03/2017 appeared clinically stable. Cardiology consult for concerns of A. fib with RVR and ECG changes in ER. Patient seen with at bedside. Reports over the past 3 days increased shortness breath at rest and palpitations. He reports mid epigastric pain and discomfort intermittently, reports similar to his previous [place]. He reports compliance with Plavix and Eliquis other than missed doses yesterday. He denies any active bleeding or blood loss. Denies any chest pain currently. Report recent chills and cough. Denies any nausea, vomiting, diarrhea. Reports continues to smoke. Upon initial eval, SOB improved with breathing treatment and heart rate better controlled with amiodarone bolus with amiodarone being started. On IV Cardizem gtt. ECGs reviewed and discussed with Dr. Diana Thomas, no acute STEMI criteria warranted, supected demand ischemia on ECG with afib RVR and acute on chronic COPD exac. Patient re-evaluated in ER with Dr. Verduzco, s/p DCCV by ER for recurrent afib RVR despite amio and cardizem gtts with conversion to ST. V1 with ST elevations , no changes from baseline V2. ST depression throughout slightly improved. No acute STEMI criteria warranted, however plan for urgent [facility]. He did report some mid inspiratory chest tightness with worsening SOB. Resp. at bedside with ABG pending and eval for need for BiPap. Past Med Surg Social Fam HX - Past Medical History Attestation: Yes The following information was validated with the patient. Source: patient, old records reviewed, obtained from family Medical history: atrial fibrillation, COPD, fibromyalgia, GERD, hyperlipidemia, hypertension Psychiatric history: anxiety, depression - Past Surgical History Surgical History: appendectomy, other - Social History Smoking Status: Current every day smoker Smokeless Tobacco Status: No Alcohol use: none Drug use: none - Family History Sister Family Member Ethnicity: Non- Living Status: Still Living Hx Family Cardiac Disorders: Yes (HD) Hx Family Respiratory Disorders: No Hx Family Cancer: Yes (Breast) Hx Family GI Disorders: No Hx Family Endocrine Disorder: No Hx Family Neuromuscular Disorders: No Hx Family Neurologic Disorders: No Hx Family HEENT Disorders: No Hx Family Autoimmune Disorders: No Brother Family Member Ethnicity: Non- Living Status: Still Living Mother Family Member Ethnicity: Non- Living Status: Father Family Member Ethnicity: Non- Living Status: Hx Family Cancer: Yes (Bladder) Medications and Allergies Albuterol Neb [Proventil Neb] 2.5 mg IH TID 02/19/17 [History] Albuterol Sulfate [Albuterol Inhaler] 2 puff IH Q6H PRN 02/19/17 [History] Alendronate Sodium [Fosamax] 70 mg PO WE 02/19/17 [History] Atorvastatin [Lipitor] 40 mg PO HS 02/19/17 [History] Budesonide/Formoterol 160/4.5 [Symbicort 160/4.5] 2 puff IH BIDR 02/19/17 [ History] Cetirizine HCl [All Day Allergy] 10 mg PO DAILY 02/19/17 [History] Gabapentin [Neurontin] 900 mg PO TID 02/19/17 [History] Melatonin 10 mg PO HS PRN 02/19/17 [History] Omeprazole [PriLOSEC] 20 mg PO DAILY 02/19/17 [History] Oxycodone HCl/Acetaminophen [Percocet 10-325 mg Tablet] 1 each PO 5XD PRN [History] Theophylline Anhydrous [Oliver-24] 200 mg PO DAILY 02/19/17 [History] Verapamil HCl [Verapamil ER] 180 mg PO DAILY 02/19/17 [History] predniSONE [PredniSONE] 10 mg PO DAILY #0 02/22/17 [Rx] Acetaminophen [Tylenol] 650 mg PO Q6HR PRN tablet 03/18/17 [Rx] Apixaban [Eliquis] 5 mg PO BID #60 tablet 03/18/17 [Rx] Aspirin 81 mg PO DAILY #30 tab.chew 03/18/17 [Rx] Metoprolol [Lopressor] 25 mg PO BID #60 tablet 03/18/17 [Rx] Nicotine Patch [Nicoderm] 21 mg TD DAILY #30 patch.td24 03/18/17 [Rx] hydroCHLOROthiazide [Hydrochlorothiazide] 12.5 mg PO DAILY 30 Days #30 tablet [Rx] Sertraline [Zoloft] 150 mg PO DAILY 06/06/17 [History] 3 Allergy/AdvReac Type Severity Reaction Status Date / Time tiotropium Allergy Rash Verified 03/15/16 22:23 [From Spiriva with HandiHaler] bee stings AdvReac Anaphylaxis Uncoded 02/19/17 14:16 All Systems Review: A 10-system review of systems was performed and is negative for pertinent findings except as documented above in the HPI. - Cardiovascular Cardiovascular: as per HPI, chest pain at rest, dyspnea at rest, dyspnea on exertion, irregular heart rhythm, lightheadedness, palpitations, rapid heart rate - Gastrointestinal Gastrointestinal: abdominal pain Physical Examination Selected Entries 06/06/17 10:12 06/06/17 11:45 06/06/17 12:07 Temperature 98.2 F Pulse Rate 85 Blood Pressure 118/61 O2 Sat by Pulse Oximetry 100 Oxygen Flow Rate (LPM) 6 General: Conversant HEENT: Atraumatic, Normocephaly Neck: No JVD, Normal carotid pulses Cardiac: No Murmur, Other (Irregularly irregular, tachycardic) Lungs: Other (Respirations moderately labored at rest, diminished breath sounds throughout) Neuro: Alert and responsive, No focal deficits noted Abdomen: Soft, Non-Tender Skin: No rashes noted on visualized skin Musculoskeletal: No Chest Wall Tenderness Extremities: No Edema, Normal Pulses Results 06/06/17 07:23 06/06/17 07:23 Laboratory Tests 06/06/17 06/06/17 06/06/17 07:23 07:23 07:23 WBC 18.7 H Hgb 13.2 Hct 41.4 INR 1.4 Creatinine 0.82 Est GFR (Non-Af Amer) > 60 Troponin I TSH 1.869 06/06/17 07:23 WBC Hgb Hct INR Creatinine Est GFR (Non-Af Amer) Troponin I 0.09 H* TSH ITS Impressions Chest X-Ray 06/06/17 06:55 IMPRESSION: Chronic lung changes including COPD with biapical bulla/blebs and adjacent scarring. The left upper lobe opacity appears worsened since February 2017. Superimposed infection would be difficult to exclude. D/ / 06/06/2017 07:39:02 Loretta Gao MD / earnold Interpreting Provider: Loretta Gao MD Active Medications Acetaminophen (Tylenol) 650 mg PO Q6HR PRN PRN Reason: Mild Pain (1-3) Stop: 12/06/17 11:23 Al Hydrox/Mg Hydrox/Simethicone (Maalox) 30 ml PO Q4H PRN; Protocol PRN Reason: Heartburn Stop: 12/06/17 12:42 Last Admin: 06/06/17 12:50 Dose: 30 ml Albuterol Sulfate (Proventil Neb) 2.5 mg IH TID NATALYA PRN Reason: Protocol Stop: 12/06/17 15:01 Albuterol Sulfate (Albuterol Inhaler) 2 puff IH Q6H PRN PRN Reason: Shortness Of Breath Stop: 12/06/17 11:23 Apixaban (Eliquis) 5 mg PO BID [facility] Stop: 12/06/17 21:01 Aspirin (Aspirin) 81 mg PO DAILY [facility] Stop: 12/07/17 09:01 Atorvastatin Calcium (Lipitor) 40 mg PO HS [facility] Stop: 12/06/17 21:01 Budesonide/Formoterol Fumarate (Symbicort) 2 puff IH BIDR NATALYA PRN Reason: Protocol Stop: 12/06/17 22:01 Clopidogrel Bisulfate (Plavix) 75 mg PO DAILY [facility] Stop: 12/07/17 09:01 Docusate Sodium (Colace) 100 mg PO BID [facility] Stop: 12/06/17 21:01 Gabapentin (Neurontin) 900 mg PO TID [facility] Stop: 12/06/17 15:01 Last Admin: 06/06/17 14:57 Dose: 900 mg Hydrochlorothiazide (Hydrochlorothiazide) 12.5 mg PO DAILY [facility] PRN Reason: Protocol Stop: 12/07/17 09:01 Diltiazem HCl 100 mg/ Dextrose 50 mls @ 2.5 mls/hr IVC .Q20H NATALYA PRN Reason: 5 MG/HR Stop: 12/06/17 07:01 Last Infusion: 06/06/17 08:47 Dose: 20 mg/hr, 10 mls/hr Loratadine (Claritin) 10 mg PO DAILY [facility] Stop: 12/07/17 09:01 Melatonin (Melatonin) 9 mg PO HS PRN PRN Reason: Sleep Methylprednisolone (Solu-Medrol) 40 mg IVP Q8HR [facility] Stop: 06/07/17 00:01 Last Admin: 06/06/17 14:58 Dose: 40 mg Metoprolol Tartrate (Lopressor) 25 mg PO BID NATALYA Stop: 12/06/17 21:01 Naloxone HCl (Narcan) 0.4 mg IVP Q2MIN PRN PRN Reason: Opioid Reversal Stop: 12/06/17 11:35 Nicotine (Nicoderm) 21 mg TD DAILY NATALYA PRN Reason: Protocol Stop: 12/07/17 09:01 Nitroglycerin (Nitroglycerin) 0.4 mg SL Q5MIN PRN PRN Reason: Chest Pain Stop: 12/06/17 11:25 Oxycodone/Acetaminophen (Percocet 10/325) 1 each PO 5XD PRN PRN Reason: Pain Stop: 12/06/17 11:23 Last Admin: 06/06/17 13:35 Dose: 1 each Pantoprazole Sodium (Protonix) 40 mg IVPB DAILY NATALYA Stop: 12/07/17 09:01 Prednisone (Prednisone) 10 mg PO DAILY NATALYA Stop: 12/07/17 09:01 Sertraline HCl (Zoloft) 150 mg PO DAILY NATALYA Stop: 12/07/17 09:01 Theophylline (Oliver-24) 200 mg PO DAILY NATALYA Stop: 12/07/17 09:01 - Imaging and Cardiology Cardiac cath: pending - EKG Interpretation EKG results cardiology: personally reviewed (reviewed with Dr. Diana Thomas and Dr. Verduzco) Consult Discharge Plan - Plan Referrals: Tano Das DO [Primary Care Provider] - <Bettye Verduzco - Last Filed: 06/06/17 16:18> Date of Encounter: 06/06/17 - Attending Attestation I have personally performed a face to face evaluation on this patient. I have reviewed and agree with the care plan with [employer]: Mr. Bai presented with atrial fibrillation and rapid heart rates presumably secondary to significant underlying COPD for which he is steroid dependent. While in the emergency room, he was started on a Cardizem drip and amiodarone and ultimately was cardioverted at some point. EKG in the setting of atrial fibrillation with RVR demonstrated diffuse ST depressions suggesting subendocardial ischemia in the setting of rapid heart rate. After sabianist of normal sinus rhythm, there were nondiagnostic ST changes in lead V1 and to some extent V2 although V2 is abnormal on baseline EKG. Patient is known to have CAD having recently undergone PCI in February 2017 with a residual LAD lesion. During an outpatient follow-up, he was not symptomatic and therefore was decided not to intervene. Given presence symptoms of chest tightness, elevated troponin and EKG findings, we discussed proceeding with left heart catheterization. The R/B/A of the procedure were discussed with the patient. His was at the bedside. Patient agreed to proceed. Assessment and Plan Discussion w patient/family: The assessment and plan as outlined above was discussed with the patient and/or family members who expressed understanding and agreement. All questions were answered. Thank you for involving us in the care of your patient. Please call with any questions. History of Present Illness History of present illness: Mr. Bai is a 66 year old male All Systems Review: A 10-system review of systems was performed and is negative for pertinent findings except as documented above in the HPI. Physical Examination Vital Signs, Last 4 Hours Temp Pulse Pulse Resp BP Pulse Ox 06/06/17 15:37 16 98 06/06/17 15:30 76 06/06/17 15:15 77 120/65 06/06/17 15:10 79 126/69 06/06/17 15:05 80 68 97/70 98 06/06/17 12:07 98.2 F Results 06/06/17 07:23 06/06/17 07:23
[2017-06-06] MEDS ORDERED: *HR* Bivalirudin 250 MG VIAL IVC ONE (10:56)
[2017-06-06] MEDS ORDERED: Acetaminophen 325 MG TABLET PO PRN (11:22)
[2017-06-06] MEDS ORDERED: Melatonin 3 MG TABLET PO PRN (11:22)
[2017-06-06] MEDS ORDERED: Nitroglycerin 0.4 MG TAB.SUBL SL PRN (11:24)
[2017-06-06 11:30] LABS: Thyroid Stimulating Hormone 1.869 mcIU/mL (0.340-5.600)
[2017-06-06] MEDS ORDERED: Naloxone 0.4 MG/ML INJ IVP PRN (11:34)
--- NOTE | 2017-06-06 11:38 | Pulmonology History & Physical ---
Date of Encounter: 06/06/17 Time of Encounter: 09:30 History of Present Illness Chief complaint: Chest pain HPI: Mr. Bai is a 66 year old male Past Med Surg Social Fam HX - Past Medical History Medical history: atrial fibrillation, COPD, fibromyalgia, GERD, hyperlipidemia, hypertension Psychiatric history: anxiety, depression - Past Surgical History Surgical History: appendectomy, other - Social History Smoking Status: Current every day smoker Smokeless Tobacco Status: No Alcohol use: none Drug use: none - Family History Sister Family Member Ethnicity: Non- Living Status: Still Living Hx Family Cardiac Disorders: Yes (HD) Hx Family Respiratory Disorders: No Hx Family Cancer: Yes (Breast) Hx Family GI Disorders: No Hx Family Endocrine Disorder: No Hx Family Neuromuscular Disorders: No Hx Family Neurologic Disorders: No Hx Family HEENT Disorders: No Hx Family Autoimmune Disorders: No Brother Family Member Ethnicity: Non- Living Status: Still Living Mother Family Member Ethnicity: Non- Living Status: Father Family Member Ethnicity: Non- Living Status: Hx Family Cancer: Yes (Bladder) Medications and Allergies Albuterol Neb [Proventil Neb] 2.5 mg IH TID 02/19/17 [History] Albuterol Sulfate [Albuterol Inhaler] 2 puff IH Q6H PRN 02/19/17 [History] Alendronate Sodium [Fosamax] 70 mg PO WE 02/19/17 [History] Atorvastatin [Lipitor] 40 mg PO HS 02/19/17 [History] Budesonide/Formoterol 160/4.5 [Symbicort 160/4.5] 2 puff IH BIDR 02/19/17 [ History] Cetirizine HCl [All Day Allergy] 10 mg PO DAILY 02/19/17 [History] Gabapentin [Neurontin] 900 mg PO TID 02/19/17 [History] Melatonin 10 mg PO HS PRN 02/19/17 [History] Omeprazole [PriLOSEC] 20 mg PO DAILY 02/19/17 [History] Oxycodone HCl/Acetaminophen [Percocet 10-325 mg Tablet] 1 each PO 5XD PRN [History] Theophylline Anhydrous [Oliver-24] 200 mg PO DAILY 02/19/17 [History] Verapamil HCl [Verapamil ER] 180 mg PO DAILY 02/19/17 [History] predniSONE [PredniSONE] 10 mg PO DAILY #0 02/22/17 [Rx] Acetaminophen [Tylenol] 650 mg PO Q6HR PRN tablet 03/18/17 [Rx] Apixaban [Eliquis] 5 mg PO BID #60 tablet 03/18/17 [Rx] Aspirin 81 mg PO DAILY #30 tab.chew 03/18/17 [Rx] Metoprolol [Lopressor] 25 mg PO BID #60 tablet 03/18/17 [Rx] Nicotine Patch [Nicoderm] 21 mg TD DAILY #30 patch.td24 03/18/17 [Rx] hydroCHLOROthiazide [Hydrochlorothiazide] 12.5 mg PO DAILY 30 Days #30 tablet [Rx] Sertraline [Zoloft] 150 mg PO DAILY 06/06/17 [History] 3 Allergy/AdvReac Type Severity Reaction Status Date / Time tiotropium Allergy Rash Verified 03/15/16 22:23 [From Spiriva with HandiHaler] bee stings AdvReac Anaphylaxis Uncoded 02/19/17 14:16 All Systems: A 10-system review of systems was performed and is negative for pertinent findings except as documented above in the HPI. Results - Laboratory Findings CBC and BMP: 06/06/17 07:23 06/06/17 07:23 ABG ABG pH 7.34 pH Units (7.32-7.45) 06/06/17 09:54 ABG pCO2 44 mmHg (35-45) 06/06/17 09:54 ABG pO2 211 mmHg (85-104) H 06/06/17 09:54 ABG O2 Saturation 100 % (95-98) H 06/06/17 09:54 PT/INR, D-dimer PT 15.1 Seconds (9.4-12.1) H 06/06/17 07:23 Abnormal lab findings: Abnormal lab results WBC 18.7 K/mcL (4.3-11.1) H 06/06/17 07:23 MCH 27.3 pg (28.0-33.3) L 06/06/17 07:23 RDW 15.9 % (11.5-14.5) H 06/06/17 07:23 MPV 9.0 fL (9.4-12.4) L 06/06/17 07:23 Neutrophils # 15.3 K/mcL (1.6-8.9) H 06/06/17 07:23 Monocytes # 1.5 K/mcL (0.0-1.3) H 06/06/17 07:23 PT 15.1 Seconds (9.4-12.1) H 06/06/17 07:23 ABG pO2 211 mmHg (85-104) H 06/06/17 09:54 ABG O2 Saturation 100 % (95-98) H 06/06/17 09:54 VBG HCO3 30 mEq/L (21-27) H 06/06/17 07:44 Sodium 134 mEq/L (136-145) L 06/06/17 07:23 Chloride 94 mEq/L (98-109) L 06/06/17 07:23 Troponin I 0.09 ng/mL (0-0.03) H* 06/06/17 07:23
--- NOTE | 2017-06-06 11:44 | Invasive Diagnostic Lab Proc ---
Name: Emmanuel Bai Date of Study: 06/06/2017 Date: 1950 Ht: 70.9in Medical Record#: [id number] Age: 66 Wt: 149.91lb Gender: Male BSA: 1.86 Order #: [id number] BMI: 20.99 Physicians Procedure Physician: Roz Thomas MD, FACC Referring MD: Referring MD: Staff Name Position Time In Nabila Betancourt RN Monitor 10:40 AM Carmen Shukla RN Parquetry Floor Layer 10:40 AM Nneka Orellana RT (R) Scrub 10:40 AM Indications Indication Non-Stemi Procedures Performed Procedure L HRT ARTERY/VENTRICLE ANGIO IV Doppler BLD Flow 1st Vessel PRQ CARD CHENG STENT W/ANGIO 1 VSL Pre-Procedure Checklist Informed consent is complete signed and on chart. H&P is on chart. ID band is on and ID verified with patient. Patient NPO for procedure The procedure was described for the patient and questions were answered. Blood Pressure: 118/72 ECG is on chart. Rhythm: NSR Plan of Care Patient will tolerate the procedure without complications. Adequate level of comfort will be maintained. Hemodynamics will remain stable Patient will recover from procedure without complications. Respiratory function will be maintained. Cardiac rhythm will remain stable. Patient temperature will be maintained. Patient and/or family have verbalized understanding of the procedure. Patient Education Chief Complaint/Reason for Test: Cardiac Cath Developmental Category: Geriatric (65+ years) Developmentally Appropriate for Age: Yes Learning Barriers: None Education Needs: Responsibilities of Patient in Care Education Method: Verbal Information Taught: Cardiac Cath Educational Evaluation: Able to repeat information Intravenous Access Time IV Size Location DC'd Fluid/Drip Rate Units RN 10:06 AM 18g 1 1/4" Patent On Arrival Rt Antecubital Cardizem 20 mg/hr Carmen Shukla RN 10:07 AM 18g 1 1/4" Patent On Arrival Lt Antecubital Carmen Shukla RN Allergies bee stings tiotropium Bee Venom Vital Signs Time BP (mmHg) HR (bpm) O2 Sat. RR (bpm) LOC 10:07 AM 118 / 72 111 97 % 5 = Fully awake and oriented or at pre-proc level 10:43 AM / % 5 = Fully awake and oriented or at pre-proc level 10:43 AM / % 4 = Oriented but drowsy 10:58 AM / % 4 = Oriented but drowsy 10:40 AM 115 / 81 300 96 % 25 10:45 AM 112 / 66 97 92 % 18 10:50 AM 108 / 61 84 93 % 32 10:55 AM 118 / 57 85 97 % 26 11:00 AM 122 / 59 84 100 % 27 11:05 AM 122 / 63 86 100 % 27 11:10 AM 124 / 67 85 99 % 27 11:15 AM 132 / 68 90 100 % 27 11:20 AM 99 / 64 89 98 % 27 11:26 AM 121 / 62 % Procedural Medications Time Medication Dose Units Method Given By 10:38 AM Cardizem 20 mg/hr Intravenous 10:39 AM Amiodarone 1 mg/min Intravenous 10:41 AM Oxygen 3 L/min nasal cannula Carmen Shukla RN 10:41 AM Versed 2 mg Intravenous Carmen Shukla RN 10:41 AM Fentanyl 50 mcg Intravenous Carmen Shukla RN 10:44 AM Lidocaine 2% 11 ml Subcutaneous Roz Thomas MD, FACC 10:47 AM Oxygen 4 L/min nasal cannula Carmen Shukla RN 10:49 AM Oxygen 4 L/min Oxy Mask Carmen Shukla RN 10:54 AM Angiomax 0.75mg/kg bolus: 10.5 ml Intravenous Carmen Shukla RN 10:54 AM Angiomax 1.75mg/kg/hr: 24.5 ml/hr Intravenous Carmen Shukla RN 11:06 AM Adenosine 150 mcg/kg/min Intravenous Carmen Shukla RN 11:16 AM Nitroglycerin 200 mcg Intracoronary Roz Thomas MD, FACC 11:24 AM Plavix 600 mg Orally Carmen Shukla RN ASA Classification: Emergent Procedure: ASA score is assumed Oj Score Preprocedure Postprocedure Activity 2- Moves 4 extremities sustained head lift Activity 2- Moves 4 extremities sustained head lift Circulation 2- SBP +/= 20 points of pre-anesthetic level Circulation 2- SBP +/= 20 points of pre-anesthetic level Consciousness 2- Awake and alert oriented x 3 Consciousness 2- Awake and alert oriented x 3 O2 Saturation 2- Able to maintain O2 satruation of 92% on room air O2 Saturation 2- Able to maintain O2 satruation of 92% on room air Respiratory 2- Able to deep breathe and cough well Respiratory 2- Able to deep breathe and cough well Total Score 10 Total Score 10 Contrast Agent: Isovue Diagnostic Contrast: 157 ml Total Contrast: 157 ml Fluoro Dose: 354 mGy Procedure Log Time Note Enter By 10:38 AM Pt arrived to bundle tier and labeler 2 at 10:38 tsoummers 10:39 AM CathStat 10:39 AM Vitals capture started with the following parameters, Patient=Adult, Interval=5 min, Initial [place]=705 mmHg, Deflation Rate=5 mmHg, Cuff placed on Left Arm 10:39 AM Patient arrived at 10:38 with Cardizem Intravenous drip @ 20 mg/hr tsoummers 10:39 AM Recorded ECG: LA=977 Condition=Condition 1 10:40 AM Recorded ECG: UI=913 Condition=Condition 1 10:40 AM Patient arrived at 10:39 with Amiodarone Intravenous drip @ 1 mg/min tsoummers 10:40 AM Nabila Betancourt RN Position: Monitor Time in: 10:40 tsoummers 10:40 AM Carmen Shukla RN Position: Parquetry Floor Layer Time in: 10:40 tsoummers 10:40 AM GO=534 bpm, ZFZE=032/81 mmhg, SpO2=96.0 %, Resp=25 B/min, Comment=afib 10:40 AM Nneka Orellana RT (R) Position: Scrub Time in: 10:40 tsoummers 10:40 AM Patient charges- Angio tray pack, Navilyst 3mm J, Pulse Oximetry and ACIST tubing and transducer tsoummers 10:40 AM Case Delayed No tsoummers 10:40 AM Hair removed from procedure site in procedure lab using clippers. Bilateral groin prepped with Chloraprep by Carmen Shukla RN, safety strap applied then patient was draped. Skin intact. tsoummers 10:40 AM Physican paged/called 10:40. tsoummers 10:40 AM Physican responded and notified patient is ready 10:40 tsoummers 10:40 AM Physician arrived 10:40 tsmmers 10:40 AM Meet and greet completed tsoummers 10:40 AM Sign in performed according to hospital policy. tsoummers 10:40 AM Procedure start 10:40 tsoummers 10:41 AM Time: 10:41 Oxygen on at 3 L/min per nasal cannula by Carmen Shukla RN tsoummers 10:41 AM Time: 10: Versed 2 mg Intravenous Given by [facility]: AM Time: 10:41 Fentanyl 50 mcg Intravenous Given by Carmen Shukla RN [facility] 10:42 AM Case Start 10:43 AM Time: 10:43 Patient comfortable and pain free: Yes tsoummers 10:43 AM Time: 10:43LOC: 5 = Fully awake and oriented or at pre-proc [facility] 10:44 AM Clinical Presentation: Non-STEMI tsmmers 10:44 AM Time out performed according [facility] policy [facility] 10:45 AM Time: :44 11 ml Lidocaine 2% to right groin Subcutaneous Given by Roz Thomas MD, [facility] 10:45 AM HR=97 bpm, RPRY=917/66 mmhg, SpO2=92.0 %, Resp=18 B/min, Comment=afib 10:45 AM Access obtained by percutaneous puncture. 6Fr 10cm Terumo [place] sheath placed in right Femoral artery. [id number] [facility] 10:45 AM 0.035 145cm Navilyst 3mmJ wire [id number] [facility] 10:45 AM 5Fr FL 4 catheter inserted over the wire [facility] 10:46 AM LCA angiography performed in multiple views. [facility] 10:46 AM Pressure channel 1 zeroed. 10:46 AM Recorded Pressure: Ao, HR=98, Condition=Condition 1 (Aorta) Ao 94/52/68 10:47 AM Time: 10:47 Oxygen on at 4 L/min per nasal cannula by Carmen Shukla RN [facility] 10:49 AM Catheter removed [facility] 10:49 AM 5Fr FR 4 catheter inserted over the wire [facility] 10:49 AM RCA angiography performed in multiple views. [facility] 10:50 AM Recorded Pressure: Ao, HR=86, Condition=Condition 1 (Aorta) Ao 94/59/75 10:50 AM HR=84 bpm, ALBR=133/61 mmhg, SpO2=93.0 %, Resp=32 B/min, Comment=afib 10:50 AM Time: 10:49 Oxygen on at 4 L/min per Oxy Mask by Carmen Shukla RN [facility] 10:50 AM Catheter removed [facility] 10:51 AM 5Fr Pigtail catheter inserted over the wire [facility] mm 10:51 AM Catheter selectively placed in left ventricle tsoumm 10:51 AM Bolus angiogram of left Ventricle complete: 8 ml/sec for a total of 24 mls oumm 10:52 AM Pressure channel 1 zero failed. 10:52 AM Recorded Pressure: LV, HR=89, Condition=Condition 1 (Left Ventricle) LV 86/9/11 10:52 AM Recorded Pressure: LV, Ao, HR=89, Condition=Condition 1 (Left Ventricle) LV 83/20/21, (Aorta) Ao 92/58/75 10:53 AM Catheter removed mm 10:[address] [facility] 10:54 AM Time: 10:54 Angiomax 0.75mg/kg bolus: 10.5 ml Intravenous Given by Carmen Shukla RN [place] pump [facility] 10:55 AM Time: 10:54 Angiomax 1.75mg/kg/hr: 24.5 ml/hr Intravenous Given by Carmen Shukla RN [place] pump [facility] 10:55 AM Inflation device was opened. tsoummers 10:55 AM HR=85 bpm, SIRX=669/57 mmhg, SpO2=97.0 %, Resp=26 B/min, Comment=afib 10:55 AM 6Fr XB LAD 3.5 [place] Bright-Tip guide catheter was used to cannulate the PCI vessel successfully. reused? No tsoummers 10:55 AM .014 Prowater 180cm guide wire across target lesion- successful. reused? No tsoummers 10:56 AM Lesion found in Proximal LAD. Pre Stenosis: 80 Pre SUSHIL Flow: 3: Complete and Brisk Flow/Perfusion tsoummers 10:56 AM Proximal Left Anterior Descending Coronary Artery with 80% stenosis. tsoummers 10:58 AM ACIST FFR advanced to target lesion. tsoummers 10:58 AM Time: 10:43 Patient comfortable and pain free: Yes tsoummers 10:58 AM Time: 10:43LOC: 4 = Oriented but drowsy tsoummers 11:00 AM HR=84 bpm, ASYE=528/59 mmhg, FfY7=564.0 %, Resp=27 B/min, Comment=afib 11:00 AM Pressure channel 1 zeroed. 11:05 AM HR=86 bpm, ADBB=494/63 mmhg, CnD8=974.0 %, Resp=27 B/min, Comment=afib 11:06 AM Time: 11:06 Adenosine 150 mcg/kg/min administered Intravenous by Carmen Shukla RN [facility] 11:08 AM adenosine off. 11:08 AM FFR Measurement: 0.81 [facility] 11:09 AM Flow Wire removed intact [facility] 11:09 AM 2.5 mm x 15 mm Emerge Monorail balloon across target lesion- successful. reused? No [facility] 11:10 AM HR=85 bpm, YHQK=314/67 mmhg, SpO2=99.0 %, Resp=27 B/min, Comment=afib 11:10 AM Lesion found in LMCA. Pre Stenosis: 50 Pre SUSHIL Flow: [facility] 11:11 AM Balloon inflated @ [address] [facility] 11:11 AM Left Main Coronary Artery with 50% stenosis [facility] 11:11 AM Balloon inflated @ [address] [facility] 11:12 AM Balloon inflated @ 8 thomas for 20 seconds [facility] 11:13 AM Balloon catheter removed intact. [facility] 11:13 AM 3.0mm x 38mm Synergy drug-eluting stent across target lesion- successful Lot #[id number] [facility] 11:13 AM Time: 10:58LOC: 4 = Oriented but drowsy 11:14 AM Time: 10:58 Patient comfortable and pain free: Yes [facility] 11:14 AM Stent deployed @ [address] [facility] 11:15 AM HR=90 bpm, ULOJ=861/68 mmhg, AaI3=459.0 %, Resp=27 B/min, Comment=afib 11:15 AM Stent delivery system removed intact. 11:16 AM Time: 11:16 Nitroglycerin 200 mcg Intracoronary Given by Roz Thomas MD, [facility] 11:16 AM Recorded Pressure: Ao, HR=86, Condition=Condition 1 (Aorta) Ao 107/33/64 11:16 AM Guide wire removed intact. 11:17 AM Guide catheter removed intact. [facility] 11:18 AM Bolus angiogram of right Femoral complete: 2 ml/sec for a total of 4 mls tsoumm 11:19 AM Procedure completed [facility] 11:[facility] 11:19 AM Sign out completed: Radiation Dose 354.10 mGy Fluoro Time: 7.5 Isovue 370 - 200ml contrast 157 ml given by Roz Thomas MD, FAC. Complications: NoneCardiac Rehab Consult needed: YesConfirmed administered medications: Yes oummers 11:20 AM HR=89 bpm, NIBP=99/64 mmhg, SpO2=98.0 %, Resp=27 B/min, Comment=afib 11:21 AM Isovue 370 - 200ml,1 Bottle(s) used. tsmm 11:21 AM Sheath left in place to be pulled on floor/holding area tsmmers 11:21 AM Estimated Blood Loss: minimal tsoumm 11:21 AM Post ECG Atrial Fibrillation tsoummers 11:21 AM Post Blood Pressure 132/68 tsoummers 11:21 AM Information taught IVUS/Flowire, PCI, and Cardiac Cath [facility] 11:21 AM Education needs Procedure, Plan of Care, and Responsibilities of Patient in Care [facility] 11:22 AM Learning barriers :None [facility] 11:22 AM Education Methods Verbal [facility] 11:22 AM Education evaluation Able to repeat information [facility] 11:22 AM Site status No bleeding/hematoma - Rt Groin as reported by Nneka Orellana RT (R) at 11:22 tsoummmarivel 11:22 AM Opsite applied [facility] 11:22 AM Plavix, Effient or Brilinta given Yes oummers 11:22 AM Delay to floor No tsoummers 11:22 AM No family present at this time. tsoummers 11:22 AM Complications: None tsoummers 11:22 AM Fluoro Time: 7.5 tsoummers 11:22 AM Isovue 370 - 200ml contrast 157 ml given by Roz Thomas MD, FACC. tsoummers 11:22 AM Radiation Dose 354.10 mGy tsoummmarivel 11:23 AM 11:23 Post Pulses Bilateral DP 2+ tsoummers 11:23 AM 11:23 Post Pulses Bilateral PT 1+ tsoummers 11:24 AM Time: 11:24 Plavix 600 mg Orally Given by Carmen Shukla RN 11:26 AM TOKJ=700/62 mmhg 11:26 AM Vitals capture stopped. 11:31 AM Lesion found in Proximal RCA. Pre Stenosis: 15 Pre SUSHIL Flow: tsoummers 11:31 AM Lesion found in Mid RCA. Pre Stenosis: 40 Pre SUSHIL Flow: tsoummers 11:31 AM Lesion found in Mid LAD. Pre Stenosis: 30 Pre SUSHIL Flow: tsoummers 11:32 AM Lesion found in Proximal Circumflex. Pre Stenosis: 30 Pre SUSHIL Flow: tsoummers 11:32 AM Lesion found in 1st Marginal. Pre Stenosis: 30 Pre SUSHIL Flow: tsoummers 11:32 AM Right Coronary, Right Posterior Descending Arteries with Right Posterolateral and Acute Marginal branches with 40 % stenosis. If graft is supplying this area, 0 % stenosis tsouers 11:32 AM Mid/Distal Left Anterior Descending Coronary Artery and diagonal branches with 30% stenosis. If graft is supplying this area, 0 % stenosis tsoummers 11:32 AM Circumflex, Obtuse Marginal, Left Posterior Descending, and Left Posterolateral Coronary Arteries with 30 % stenosis. If graft is supplying this area, 0 % stenosis [facility] 11:33 AM Report given to Aretha CARTER Pt taken to Room #07. 11:32 [facility] 11:33 AM Patient out of room: 11:33 clifford Complications Complication None None Hemodynamics Pressures Site Systolic/A Wave Diastolic/V Wave Mean AO 94 52 68 AO 94 59 75 LV 86 9 11 LV 83 20 21 AO 92 58 75 AO 107 33 64 Post Procedure Information Blood Pressure: 99/64 mmHg Rhythm: Atrial Fibrillation Post procedural instructions were given Closure Device Time Device Success/Fail 06/06/2017 11:27:00 AM Manual Compression Site Checks Time Location Status Staff Sheath In? Note 11:22 AM Rt Groin No bleeding/hematoma Nneka Orellana RT (R) Pulses Time Site Pre-Procedure Post-Procedure Note 11:23:00 AM Bilateral DP 2+ 11:23:00 AM Bilateral PT 1+ Updated by Nabila Betancourt RN on 06/06/2017 11:35:54 AM electronically signed on 06/06/2017 11:36:30 AM with status of Final
[2017-06-06] MEDS: Mag Hydrox/Al Hydrox/Simeth 30 ML UDC PO PRN (12:50)
--- NOTE | 2017-06-06 13:10 | Pulmonology Consult Note ---
<Manoj Amaya - Last Filed: 06/06/17 14:28> Date of Encounter: 06/06/17 Time of Encounter: 09:30 Assessment and Plan (1) NSTEMI (non-ST elevated myocardial infarction) Current Visit: Yes Status: Acute 66-year-old male presented with chest pain, atrial fibrillation rapid ventricular rate, mild ST elevation and a troponin of 0.09. SUSHIL score: 7 - Seen by cardiology recommended for emergent cardiac catheterization. Cardiac Hx from 02/2017: -LHC yesterday with left main 40%, proximal LAD 75%, 70% mid LAD, 60% distal LAD , distal circumflex 50%, OM2 65%. proximal RCA 99% with CHENG placed, 60% mid. Will need staged outpatient procedure for LAD. -Echo EF preserved with no significant valvular dysfunction. Plan: - Management per cardiology - Recommend echocardiogram - Continue with optimization of antiplatelet therapy post cardiac catheterization, beta lily, statin, Lisinopril tolerated. (2) COPD (chronic obstructive pulmonary disease) Current Visit: Yes Status: Acute Known history of COPD, oxygen dependent on 3 L at home. Last PFT performed January 2016 with spirometry demonstrating moderate obstructive ventilatory impairment with an FEV1 55% predicted. Lung volumes SVC reduced flow volume loop obstructive. Patient takes 10 mg prednisone by mouth daily at baseline. - Currently greater than 90% oxygen saturation on 3 L nasal cannula - Chest x-ray demonstrates stable bilateral apical bullous emphysema with emphysematous changes throughout his lungs. - Patient diffuse wheezing on auscultation. Plan: - Solu-Medrol 40 mg IV twice a day - 1 dose stat IV Solu-Medrol 125 mg once. - Continue theophylline 200 mg by mouth daily - Continue albuterol nebulizers 2.5 mg inhaled 3 times a day scheduled and when necessary Qualifiers: Qualified Code(s): J44.9 - Chronic obstructive pulmonary disease, unspecified (3) Atrial fibrillation with RVR Current Visit: Yes Status: Acute Patient presented with atrial fibrillation rapid ventricular rate with known history of proximal atrial fibrillation. In the emergency department his heart rate was around 180, he was symptomatic and underwent cardioversion. - Likely secondary to cardiac supply demand dysfunction. Plan: - Continue Cardizem and amiodarone drip management per cardiology and primary team. (4) CAD (coronary artery disease) Current Visit: No Status: Chronic As discussed above. Qualifiers: Coronary Disease-Associated Artery/Lesion type: [place] artery [place] vs. transplanted heart: [place] heart Associated angina: without angina Qualified Code(s): I25.10 - Atherosclerotic heart disease of [place] coronary artery without angina pectoris (5) GERD (gastroesophageal reflux disease) Current Visit: No Status: Chronic Continue 40 mg IV Protonix. Qualifiers: Esophagitis presence: esophagitis presence not specified Qualified Code(s) : K21.9 - Gastro-esophageal reflux disease without esophagitis (6) HLD (hyperlipidemia) Current Visit: No Status: Chronic Known Hx. - Continue statin Qualifiers: Hyperlipidemia type: unspecified Qualified Code(s): E78.5 - Hyperlipidemia , unspecified (7) HTN (hypertension) Current Visit: No Status: Chronic Continue management per primary team. Qualifiers: Hypertension type: essential hypertension Qualified Code(s): I10 - Essential (primary) hypertension (8) Tobacco abuse Current Visit: No Status: Chronic Daily smoker for 40+ years. Continues to smoke pack per day. - Smoking education needed. History of Present Illness Consult date: 06/06/17 Requesting physician: David Villalta Reason for consult: pneumonia Chief complaint: chest pain History of present illness: Mr. Bai is a 66 year old male with medical history of atrial fibrillation COPD with steroid dependency, CAD -CHENG to prox RCA, fibromyalgia, HLD, HTN, valvular heart disease, and GERD presents with rapid heart rate, shortness of breath. He awoke this morning with shortness of breath and dizziness. He states that he is not having chest pain for roughly 2-3 days located substernally and epigastric. He denies radiation to the jaw or the arm. He states that this chest pain is very similar to the last time he had cardiac event. He has been taking his regular medications and only missed a dose of antiplatelet therapy yesterday. He admits to be recurrent every day smoker smoking a pack per day and known history of severe emphysema which she wears 3 L nasal cannula oxygen at home. He takes 10 mg prednisone by mouth daily with severe COPD. He has known bullous emphysema and states that he had seen a cardiothoracic surgeon the past to stay that he was not a candidate for surgery for lung reduction. Upon initial evaluation in emergency department he was on 15 L high flow oxygen on oxygen mask just post cardioversion. His oxygen saturations were 100% and after reduction of his oxygen to 4 L nasal cannula he maintain oxygen saturations greater than 95%. Past Med Surg Social Fam HX - Past Medical History Medical history: atrial fibrillation, COPD, fibromyalgia, GERD, hyperlipidemia, hypertension Psychiatric history: anxiety, depression - Past Surgical History Surgical History: appendectomy, other - Social History Smoking Status: Current every day smoker Smokeless Tobacco Status: No Alcohol use: none Drug use: none - Family History Sister Family Member Ethnicity: Non- Living Status: Still Living Hx Family Cardiac Disorders: Yes (HD) Hx Family Respiratory Disorders: No Hx Family Cancer: Yes (Breast) Hx Family GI Disorders: No Hx Family Endocrine Disorder: No Hx Family Neuromuscular Disorders: No Hx Family Neurologic Disorders: No Hx Family HEENT Disorders: No Hx Family Autoimmune Disorders: No Brother Family Member Ethnicity: Non- Living Status: Still Living Mother Family Member Ethnicity: Non- Living Status: Father Family Member Ethnicity: Non- Living Status: Hx Family Cancer: Yes (Bladder) Medications and Allergies Albuterol Neb [Proventil Neb] 2.5 mg IH TID 02/19/17 [History] Albuterol Sulfate [Albuterol Inhaler] 2 puff IH Q6H PRN 02/19/17 [History] Alendronate Sodium [Fosamax] 70 mg PO WE 02/19/17 [History] Atorvastatin [Lipitor] 40 mg PO HS 02/19/17 [History] Budesonide/Formoterol 160/4.5 [Symbicort 160/4.5] 2 puff IH BIDR 02/19/17 [ History] Cetirizine HCl [All Day Allergy] 10 mg PO DAILY 02/19/17 [History] Gabapentin [Neurontin] 900 mg PO TID 02/19/17 [History] Melatonin 10 mg PO HS PRN 02/19/17 [History] Omeprazole [PriLOSEC] 20 mg PO DAILY 02/19/17 [History] Oxycodone HCl/Acetaminophen [Percocet 10-325 mg Tablet] 1 each PO 5XD PRN [History] Theophylline Anhydrous [Oliver-24] 200 mg PO DAILY 02/19/17 [History] Verapamil HCl [Verapamil ER] 180 mg PO DAILY 02/19/17 [History] predniSONE [PredniSONE] 10 mg PO DAILY #0 02/22/17 [Rx] Acetaminophen [Tylenol] 650 mg PO Q6HR PRN tablet 03/18/17 [Rx] Apixaban [Eliquis] 5 mg PO BID #60 tablet 03/18/17 [Rx] Aspirin 81 mg PO DAILY #30 tab.chew 03/18/17 [Rx] Metoprolol [Lopressor] 25 mg PO BID #60 tablet 03/18/17 [Rx] Nicotine Patch [Nicoderm] 21 mg TD DAILY #30 patch.td24 03/18/17 [Rx] hydroCHLOROthiazide [Hydrochlorothiazide] 12.5 mg PO DAILY 30 Days #30 tablet [Rx] Sertraline [Zoloft] 150 mg PO DAILY 06/06/17 [History] 3 Allergy/AdvReac Type Severity Reaction Status Date / Time tiotropium Allergy Rash Verified 03/15/16 22:23 [From Spiriva with HandiHaler] bee stings AdvReac Anaphylaxis Uncoded 02/19/17 14:16 All Systems: A 10-system review of systems was performed and is negative for pertinent findings except as documented above in the HPI. - Constitutional Constitutional: no chills, no excessive sweating, no fever(s), no headache(s) - EENT Nose, mouth and throat: no dizziness, no sore throat - Cardiovascular Cardiovascular: chest pain, chest pain at rest, dyspnea on exertion, palpitations, rapid heart rate, no radiating jaw, neck or arm pain, no slow heart rate - Respiratory Respiratory: dyspnea, dyspnea on exertion, wheezing, no hemoptysis - Gastrointestinal Gastrointestinal: abdominal pain (Epigastric discomfort), no cramping, no diarrhea, no loose stools, no nausea, no vomiting - Genitourinary Genitourinary: no hematuria - Musculoskeletal Musculoskeletal: no weakness, no muscle weakness, no neck pain - Neurological Neurological: no confusion - Psychiatric Psychiatric: no anxiety, no depression - Hematologic/Lymphatic Hematologic/Lymphatic: no easy bleeding Physical Examination Vital Signs: Vital Signs, Last 4 Hours Temp Pulse Resp BP Pulse Ox 06/06/17 12:07 98.2 F 06/06/17 11:45 98.5 F 85 18 138/77 99 General appearance: alert, other (mild distress, Very thin male with poor muscle distribution.) Eyes: nonicteric ENT: oropharynx moist Neck: supple Effort: mildly labored Auscultation: bilateral: diminished breath sounds, wheezes Cardiovascular: regular rate and rhythm Gastrointestinal: normoactive bowel sounds, soft, non-tender, non-distended Integumentary: normal Extremities: no cyanosis Musculoskeletal: no deformities normal mental status, non-focal exam mood appropriate, affect normal Results - Laboratory Findings CBC and BMP: 06/06/17 07:23 06/06/17 07:23 ABG ABG pH 7.34 pH Units (7.32-7.45) 06/06/17 09:54 ABG pCO2 44 mmHg (35-45) 06/06/17 09:54 ABG pO2 211 mmHg (85-104) H 06/06/17 09:54 ABG O2 Saturation 100 % (95-98) H 06/06/17 09:54 PT/INR, D-dimer PT 15.1 Seconds (9.4-12.1) H 06/06/17 07:23 Abnormal lab findings: Abnormal lab results WBC 18.7 K/mcL (4.3-11.1) H 06/06/17 07:23 MCH 27.3 pg (28.0-33.3) L 06/06/17 07:23 RDW 15.9 % (11.5-14.5) H 06/06/17 07:23 MPV 9.0 fL (9.4-12.4) L 06/06/17 07:23 Neutrophils # 15.3 K/mcL (1.6-8.9) H 06/06/17 07:23 Monocytes # 1.5 K/mcL (0.0-1.3) H 06/06/17 07:23 PT 15.1 Seconds (9.4-12.1) H 06/06/17 07:23 ABG pO2 211 mmHg (85-104) H 06/06/17 09:54 ABG O2 Saturation 100 % (95-98) H 06/06/17 09:54 VBG HCO3 30 mEq/L (21-27) H 06/06/17 07:44 Sodium 134 mEq/L (136-145) L 06/06/17 07:23 Chloride 94 mEq/L (98-109) L 06/06/17 07:23 Troponin I 0.09 ng/mL (0-0.03) H* 06/06/17 07:23 Consult Discharge Plan - Plan Referrals: Tano Das DO [Primary Care Provider] - <Alma Nuñez - Last Filed: 06/06/17 18:56> Date of Encounter: 06/06/17 All Systems: A 10-system review of systems was performed and is negative for pertinent findings except as documented above in the HPI. Physical Examination Vital Signs: Vital Signs, Last 4 Hours Temp Pulse Pulse Resp BP Pulse Ox 06/06/17 18:36 98.5 F 74 18 126/60 95 06/06/17 15:37 16 98 06/06/17 15:30 76 06/06/17 15:15 77 120/65 06/06/17 15:10 79 126/69 06/06/17 15:05 80 68 97/70 98 Results - Laboratory Findings CBC and BMP: 06/06/17 07:23 06/06/17 07:23 ABG ABG pH 7.34 pH Units (7.32-7.45) 06/06/17 09:54 ABG pCO2 44 mmHg (35-45) 06/06/17 09:54 ABG pO2 211 mmHg (85-104) H 06/06/17 09:54 ABG O2 Saturation 100 % (95-98) H 06/06/17 09:54 PT/INR, D-dimer PT 15.1 Seconds (9.4-12.1) H 06/06/17 07:23 Abnormal lab findings: Abnormal lab results WBC 18.7 K/mcL (4.3-11.1) H 06/06/17 07:23 MCH 27.3 pg (28.0-33.3) L 06/06/17 07:23 RDW 15.9 % (11.5-14.5) H 06/06/17 07:23 MPV 9.0 fL (9.4-12.4) L 06/06/17 07:23 Neutrophils # 15.3 K/mcL (1.6-8.9) H 06/06/17 07:23 Monocytes # 1.5 K/mcL (0.0-1.3) H 06/06/17 07:23 PT 15.1 Seconds (9.4-12.1) H 06/06/17 07:23 ABG pO2 211 mmHg (85-104) H 06/06/17 09:54 ABG O2 Saturation 100 % (95-98) H 06/06/17 09:54 VBG HCO3 30 mEq/L (21-27) H 06/06/17 07:44 Sodium 134 mEq/L (136-145) L 06/06/17 07:23 Chloride 94 mEq/L (98-109) L 06/06/17 07:23 Troponin I 0.09 ng/mL (0-0.03) H* 06/06/17 07:23 - Clinical Findings Intake & Output: Intake & Output 06/06/17 06/06/17 06/06/17 07:59 15:59 23:59 Intake Total 200 / 840 110 / 110 Output Total 200 / 200 150 / 150 Balance 0 / 640 -40 / -40 - Attending Attestation I saw the patient with the resident agree with History and Physical exam findings. 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 oriented x3 following commands, much better as compared when i saw him in the ER NECK : No JVD appreciated Pulmonary : Patient has hypoxic respiratory failure patient has chronic severe emphysema with bilateral apical bullous diease there is some increased opacities in the left apical bullae very low probability for infected bullae , patient history more of a cardiac presentation , will empirically treat him with broad spectrum antibiotics patient had severe bronchospam initially in the ER will treat him with steroids , will CT chest w/o contrast to better delineate for underlying pneumonia or infected bullae as the duration of therapy and the follow up varies if it is a infected bullae . To continue bronchodilators Cardiac : NSTEMI and A fib with RVR management according to cardiology . Renal : Labs and out put reviewed Rest of the management according to primary team. Spoke with Primary team about the recommendations.
[2017-06-06] MEDS: *HR* OxyCODONE/APAP 10/325 TABLET PO PRN ×2 (13:35→19:59)
[2017-06-06] MEDS ORDERED: *HR* Atropine Sulfate 1 MG/10 ML SYRINGE ONE (14:36)
[2017-06-06] MEDS: Gabapentin 300 MG CAPSULE PO SCH ×2 (14:57→19:59)
[2017-06-06] MEDS: MethylPREDNISolone 40 MG/ML VIAL IVP SCH ×2 (14:58→23:32)
--- NOTE | 2017-06-06 15:10 | Event Note ---
Date of Encounter: 06/06/17 Time of Encounter: 15:00 - Cardiology Event Note S/p LHC and stent to LAD per discussion with Dr. Diana Thomas. Amio gtt and Hep. gtt appears d/c'd and Eliquis resumed. Will check echo.
[2017-06-06] MEDS: Albuterol 2.5 MG/3 ML NEBULIZER IH SCH ×2 (15:34→22:26)
--- NOTE | 2017-06-06 15:55 | Internal Med History&Physical ---
Date of Encounter: 06/12/17 Time of Encounter: 15:54 Assessment and Plan (1) Acute exacerbation of chronic obstructive airways disease Status: Acute Patient is a exacerbation of COPD. Patient does have a bilateral upper lobe bullous disease. Patient has stage IV Gold COPD. Plan: Antibiotics/bronchodilators/steroids. Noninvasive ventilation management as per pulmonology. Pulmonology on the board and we will follow their recommendations. (2) Sepsis Status: Acute Likely source for sepsis is lung/pneumonia. Patient is presently on appropriate antibiotics. We will continue the same and wait for outcome. Qualifiers: Sepsis type: sepsis due to unspecified organism Qualified Code(s): A41.9 - Sepsis, unspecified organism (3) Afib Status: Chronic Patient is known to have paroxysmal A. fib. patient is admitted with A. fib with rapid ventricular rate. At this point etiology for rapid ventricular rate is multifactorial. Patient underwent cardiac catheterization. Cardiology on the board. We will follow the recommendations from cardiology. Qualifiers: Atrial fibrillation type: paroxysmal Qualified Code(s): I48.0 - Paroxysmal atrial fibrillation (4) CAD (coronary artery disease) Status: Chronic Qualifiers: Coronary Disease-Associated Artery/Lesion type: [place] artery [place] vs. transplanted heart: [place] heart Associated angina: without angina Qualified Code(s): I25.10 - Atherosclerotic heart disease of [place] coronary artery without angina pectoris (5) GERD (gastroesophageal reflux disease) Status: Chronic Stable Qualifiers: Esophagitis presence: esophagitis presence not specified Qualified Code(s) : K21.9 - Gastro-esophageal reflux disease without esophagitis (6) Elevated troponin Status: Acute he underwent cardiac catheterization. Medical decision making: This patient is a moderate to severe risk of worsening in spite of being on appropriate medication to the underlying complex comorbid conditions Internal Medicine - H&P: HPI Chief complaint: Palpitations. Admitted From: Emergency Dept Plans for Post Hospital Care: Home History of present illness: PCP: Dr Das Brief PMH: Coronary artery disease, steroid dependent COPD, paroxysmal atrial fibrillation, fibromyalgia, hyperlipidemia, hypertension, gastroesophageal reflux disease, History of present medical illness: Patient was complaining of worsening shortness of breath along with cough and mucopurulent expectoration. Patient's symptoms dramatically worsened in the last 24 hours. Patient was not able to walk even 5 steps in home and that is the reason he called squad to get him to the emergency room for further evaluation. Patient denies chest pain, dizziness , abdominal pain, nausea, diarrhea or dizziness. Workup in the emergency room: This patient had a very stormy course in the emergency room. Upon arrival patient's heart rate was in 150s and he was in atrial fibrillation with a rapid ventricular rate. Cardiology was consult. Cardiology recommended amiodarone drip. Patient was started on amiodarone drip and he developed hot flashes and his heart rate went to 180. Noted that emergency room physician decided to cardioversion. In spite of being cardioversion patient's heart rate was still in the 140s. Pulmonology was consulted and they recommended noninvasive ventilation along with antibiotics steroids and bronchodilators. Cardiology was again on the board and now they decided to take patient for cardiac catheterization. Reason for hospitalization: Atrial fibrillation with a rapid ventricular rate likely secondary to the COPD exacerbation Family history: Noncontributory Past Med Surg Social Fam HX - Past Medical History Medical history: atrial fibrillation, COPD, fibromyalgia, GERD, hyperlipidemia, hypertension Psychiatric history: anxiety, depression - Past Surgical History Surgical History: appendectomy, other - Social History Smoking Status: Current every day smoker Smokeless Tobacco Status: No Alcohol use: none Drug use: none - Family History Sister Family Member Ethnicity: Non- Living Status: Still Living Hx Family Cardiac Disorders: Yes (HD) Hx Family Respiratory Disorders: No Hx Family Cancer: Yes (Breast) Hx Family GI Disorders: No Hx Family Endocrine Disorder: No Hx Family Neuromuscular Disorders: No Hx Family Neurologic Disorders: No Hx Family HEENT Disorders: No Hx Family Autoimmune Disorders: No Brother Family Member Ethnicity: Non- Living Status: Still Living Mother Family Member Ethnicity: Non- Living Status: Father Family Member Ethnicity: Non- Living Status: Hx Family Cancer: Yes (Bladder) Internal Medicine - H&P: Meds Albuterol Neb [Proventil Neb] 2.5 mg IH TID 02/19/17 [History] Albuterol Sulfate [Albuterol Inhaler] 2 puff IH Q6H PRN 02/19/17 [History] Alendronate Sodium [Fosamax] 70 mg PO WE 02/19/17 [History] Atorvastatin [Lipitor] 40 mg PO HS 02/19/17 [History] Budesonide/Formoterol 160/4.5 [Symbicort 160/4.5] 2 puff IH BIDR 02/19/17 [ History] Cetirizine HCl [All Day Allergy] 10 mg PO DAILY 02/19/17 [History] Gabapentin [Neurontin] 900 mg PO TID 02/19/17 [History] Melatonin 10 mg PO HS PRN 02/19/17 [History] Omeprazole [PriLOSEC] 20 mg PO DAILY 02/19/17 [History] Oxycodone HCl/Acetaminophen [Percocet 10-325 mg Tablet] 1 each PO 5XD PRN [History] Theophylline Anhydrous [Oliver-24] 200 mg PO DAILY 02/19/17 [History] Verapamil HCl [Verapamil ER] 180 mg PO DAILY 02/19/17 [History] Acetaminophen [Tylenol] 650 mg PO Q6HR PRN tablet 03/18/17 [Rx] Apixaban [Eliquis] 5 mg PO BID #60 tablet 03/18/17 [Rx] Aspirin 81 mg PO DAILY #30 tab.chew 03/18/17 [Rx] Nicotine Patch [Nicoderm] 21 mg TD DAILY #30 patch.td24 03/18/17 [Rx] hydroCHLOROthiazide [Hydrochlorothiazide] 12.5 mg PO DAILY 30 Days #30 tablet [Rx] Sertraline [Zoloft] 150 mg PO DAILY 06/06/17 [History] Clopidogrel [Plavix] 75 mg PO DAILY #30 tablet 06/10/17 [Rx] Metoprolol [Lopressor] 50 mg PO BID #120 tablet 06/10/17 [Rx] Psyllium [Metamucil Fiber Singles Packet] 1 packet PO TID #21 powd.pack [Rx] Sucralfate [Carafate] 1 gm PO TIDWM #21 udc 06/10/17 [Rx] Temazepam [Restoril] 15 mg PO HS PRN #7 capsule 06/10/17 [Rx] levoFLOXacin [Levofloxacin] 750 mg PO DAILY #1 tablet 06/10/17 [Rx] predniSONE [PredniSONE] See Taper PO DAILY #20 tablet 06/10/17 [Rx] 3 Allergy/AdvReac Type Severity Reaction Status Date / Time tiotropium Allergy Rash Verified 03/15/16 22:23 [From Spiriva with HandiHaler] bee stings AdvReac Anaphylaxis Uncoded 02/19/17 14:16 All Systems PM: A 10-system review of systems was performed and is negative for pertinent findings except as documented above in the HPI. - Constitutional Constitutional: no chills, no fever(s), no night sweats - EENT Eyes: no change in vision, no discharge, no pain, no photophobia Ears: no ear discharge, no ear pain, no tinnitus Nose, mouth and throat: no dysphagia, no nasal discharge, no neck pain, no sore throat - Cardiovascular Cardiovascular ROS IM: no chest pain, no diaphoresis, no dyspnea, no lightheadedness, no palpitations, no syncope - Respiratory Respiratory: cough, dyspnea, wheezing, excessive phlegm production, change in phlegm color, pain with cough - Gastrointestinal Gastrointestinal: no abdominal pain, no diarrhea, no hematemesis, no hematochezia, no melena, no nausea, no vomiting - Musculoskeletal Musculoskeletal ROS IM: no numbness, no tingling - Integumentary Integumentary IM: no rash, no unusual bruising - Neurological Neurological ROS: no confusion, no convulsions, no focal weakness, no numbness, no tingling, no tremor(s) - Hematologic/Lymphatic Hematologic/Lymphatic: no easy bruising - Constitutional Vitals: Temp Pulse Resp BP Pulse Ox 98.2 F 76 16 120/65 98 06/06/17 12:07 06/06/17 15:30 06/06/17 15:37 06/06/17 15:15 06/06/17 15:37 General appearance: Present: A&O X 3, pleasant, no acute distress, answers questions appropriately - Head Head exam: Present: atraumatic, normocephalic - Eye Eye exam: Present: PERRL, conjuntiva pink, sclera anicteric Pupils: Present: PERRL - Neck Neck exam general surgery: Present: supple, trachea midline. Absent: lymphadenopathy - Respiratory Respiratory exam: Present: accessory muscle use, CTAB, rales, rhonchi, wheezes - Cardiovascular Cardiovascular exam: Present: RRR, +S1, +S2. Absent: diastolic murmur, gallop, rubs, systolic murmur - GI/Abdominal GI/Abdominal exam: Present: normal bowel sounds, soft, no peritoneal signs. Absent: distended, tenderness - Extremities Exam Extremities exam: Present: warm, radial pulses palpable and symmetrical. Absent : calf tenderness, cyanotic, pedal edema - Neurological Exam Neurological exam: Present: CN II-XII intact, oriented X3, no focal deficits. Absent: pronater drift, facial droop, speech deficit - Skin Skin exam: Present: dry, intact Internal Med - H&P Results - Labs CBC & Chem 7: 06/10/17 02:08 06/10/17 02:08
--- NOTE | 2017-06-06 16:35 | Event Note ---
Date of Encounter: 06/06/17 Time of Encounter: 16:35 - Cardiology Event Note Currently SR 70's.
[2017-06-06] MEDS: Cefepime HCl 2,000 MG in Water for inj. (sterile) 20 ML 20 ML IVP SCH (17:35)
[2017-06-06] MEDS: APIXABAN 5 MG TABLET PO SCH (19:58)
[2017-06-06] MEDS: Vancomycin 1,000 MG in D5% in Water 250 ML IVPB SCH (19:59)
[2017-06-06] MEDS: Budesonide/Formoterol 160/4.5 MDI IH SCH (22:26)
[2017-06-07] MEDS: Cefepime HCl 2,000 MG in Water for inj. (sterile) 20 ML 20 ML IVP SCH ×3 (01:45→15:58)
[2017-06-07 04:59] LABS: Basophils % 0.1 %; Hematocrit 36.3 % (37.5-50.1); Immature Granulocytes % 0.6 % (0-4); Lymphocytes # 1.1 K/mcL (0.6-4.6); Lymphocytes % 7.7 %; Mean Corpuscular HGB Conc 31.7 g/dL (31.6-35.5); Mean Corpuscular Volume 85.2 fL (83.0-100.0); Mean Platelet Volume 9.1 fL (9.4-12.4); Monocytes # 0.3 K/mcL (0.0-1.3); Monocytes % 2.2 %; Neutrophils # 12.7 K/mcL (1.6-8.9); Platelet Count 252 K/mcL (140-400); Red Blood Count 4.26 M/mcL (4.19-5.50); Red Cell Distribution Width 15.9 % (11.5-14.5); Segmented Neutrophils % 89.4 %
[2017-06-07 05:29] LABS: BUN/Creatinine Ratio 23 (6-26); Blood Urea Nitrogen 23 mg/dL (8-23); Calcium 7.8 mg/dL (8.6-10.3); Carbon Dioxide 26 mEq/L (23-29); Chloride 102 mEq/L (98-107); Glucose 192 mg/dL (70-105); Osmolality,Calculated 287 (280-300); Potassium 4.1 mEq/L (3.5-5.1); Sodium 134 mEq/L (136-145); eGFR For African Americans > 60 (> 60); eGFR For Non-African Americans > 60 (> 60)
[2017-06-07 05:30] LABS: Hemoglobin 11.5 g/dL (12.9-16.9)
[2017-06-07] MEDS: Nicotine 21 MG PATCH.TD24 TD SCH (08:27)
[2017-06-07] MEDS: Gabapentin 300 MG CAPSULE PO SCH ×3 (08:28→21:18)
[2017-06-07] MEDS: APIXABAN 5 MG TABLET PO SCH ×2 (08:28→21:18)
[2017-06-07] MEDS: Loratadine 10 MG TABLET PO SCH (08:28)
[2017-06-07] MEDS: hydroCHLOROthiazide 25 MG TABLET PO SCH (08:29)
[2017-06-07] MEDS: Aspirin 81 MG TAB.CHEW PO SCH (08:29)
[2017-06-07] MEDS: Pantoprazole 40 MG VIAL IVPB SCH (08:29)
[2017-06-07] MEDS: Levofloxacin 750 MG/150 ML 750 MG/150 ML BAG IVPB SCH (08:31)
[2017-06-07] MEDS ORDERED: predniSONE 10 MG TABLET PO SCH (09:00)
--- NOTE | 2017-06-07 09:07 | Internal Med Progress Note ---
<Anh Monahan - Last Filed: 06/07/17 13:32> Date of Encounter: 06/07/17 Time of Encounter: 08:30 - Assessment and plan (1) Sepsis Current Visit: Yes Status: Acute Assessment and plan: - 3 SIRS criteria (tachycardia, tachypnea and leukocytosis) with lactic acid 1.5 on admission. - Likely secondary to suspected RADHA pneumonia as seen on CXR. - Blood cultures pending. Will obtain sputum culture if possible. - Improves as leukocytosis decreased and tachycardia & tachypnea resolved. - Continue hydration with IV fluid. - Continue IV vancomycin, cefepime and levofloxacin for now. Further de- escalation based on clinical picture and culture result. - Continue to monitor closely. Qualifiers: Sepsis type: sepsis due to unspecified organism Qualified Code(s): A41.9 - Sepsis, unspecified organism (2) Pneumonia Current Visit: No Status: Suspected Assessment and plan: - Significant leukocytosis with worsened left upper lobe opacity on CXR suspicious of pneumonia. - Patient reports respiratory status back to baseline. - Continue IV vancomycin, cefepime and levofloxacin for now. Further de- escalation based on clinical picture and culture result. Qualifiers: Pneumonia type: due to unspecified organism Laterality: left Lung location: upper lobe of lung Qualified Code(s): J18.1 - Lobar pneumonia, unspecified organism (3) Afib Current Visit: No Status: Chronic Assessment and plan: - Known history of paroxysmal atrial fibrillation. - Was noted to have A-fib RVR in the 160s to 180s in ED. Had Cardizem drip, amiodarone bolus and DC cardioversion in ED. - Was on Cardizem drip overnight but discontinued this morning. - Currently rate controlled at rate of 70s. - Continue Metoprolol for rate control and Eliquis for anticoagulation. - Cardiology thinks patient's A-fib RVR in ED is precipitated by missing metoprolol at home. Per cardiology, no other rate-control medication needed at this time but patient will need outpatient follow up with EP after discharge for the juanjose-tachy problem. - Continue telemetry monitoring. Qualifiers: Atrial fibrillation type: paroxysmal Qualified Code(s): I48.0 - Paroxysmal atrial fibrillation (4) NSTEMI (non-ST elevated myocardial infarction) Current Visit: Yes Status: Acute Assessment and plan: - With chest pain and elevated troponin 0.09 on admission. - Initial ECG showed ST depressions throughout and elevations in aVL and aVR. No STEMI alert warranted per cardiology at that time. 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 - LHC on 06/06/17 found 2-vessel CAD, LVEF 65% and a CHENG placed in the proximal LAD. FFR mresurement: 0.81 of the LMCA. - Continue aspirin, Plavix, Lipitor, metoprolol, nitroglycerin prn. (5) CAD (coronary artery disease) Current Visit: No Status: Chronic Assessment and plan: - See above. Qualifiers: Coronary Disease-Associated Artery/Lesion type: [place] artery [place] vs. transplanted heart: [place] heart Associated angina: without angina Qualified Code(s): I25.10 - Atherosclerotic heart disease of [place] coronary artery without angina pectoris (6) COPD (chronic obstructive pulmonary disease) Current Visit: Yes Status: Acute Assessment and plan: - Continue bronchodilators, Symbicort and supplemental oxygen. Qualifiers: COPD type: emphysema Emphysema type: unspecified Qualified Code(s): J43.9 - Emphysema, unspecified (7) HTN (hypertension) Current Visit: No Status: Chronic Assessment and plan: - BP within normal range. - Continue current hypertensive regimen. Qualifiers: Hypertension type: essential hypertension Qualified Code(s): I10 - Essential (primary) hypertension (8) HLD (hyperlipidemia) Current Visit: No Status: Chronic Assessment and plan: - Continue Lipitor. Qualifiers: Hyperlipidemia type: unspecified Qualified Code(s): E78.5 - Hyperlipidemia , unspecified (9) Tobacco abuse Current Visit: No Status: Chronic Assessment and plan: - Known smoking history for more than 40 years. - Smoking cessation counseling. - Continue nicotine patch. (10) DVT prophylaxis Current Visit: No Status: Acute Assessment and plan: - Continue Eliquis - Subjective Interval history: Patient was seen and examined this morning. Patient reports breathing back to his baseline and denies chest pain/discomfort, fever, chills. Patient still has some cough but it's mostly dry cough. - Constitutional Vitals: Temp Pulse Resp BP Pulse Ox 98.0 F 72 20 135/77 95 06/07/17 07:09 06/07/17 07:42 06/07/17 07:40 06/07/17 07:09 06/07/17 07:40 General appearance: Present: A&O X 3, pleasant, no acute distress, answers questions appropriately - Head Head exam: Present: atraumatic, normocephalic - Eye Eye exam: Present: EOMI, conjuntiva pink, sclera anicteric - Neck Neck exam general surgery: Present: supple, trachea midline. Absent: lymphadenopathy - Respiratory Respiratory exam: Present: decreased breath sounds, wheezes (occasional). Absent: accessory muscle use - Cardiovascular Cardiovascular exam: Present: RRR, +S1, +S2 - GI/Abdominal GI/Abdominal exam: Present: normal bowel sounds, soft, no peritoneal signs. Absent: distended, tenderness - Extremities Exam Extremities exam: Present: warm. Absent: cyanotic, pedal edema - Neurological Exam Neurological exam: Present: oriented X3, no focal deficits. Absent: facial droop, speech deficit - Skin Skin exam: Present: dry, warm Internal Medicine: Result - Labs CBC & Chem 7: 06/07/17 04:28 06/07/17 04:28 Labs: Short CBC 06/07/17 Range/Units 04:28 WBC 14.2 H (4.3-11.1) K/mcL Hgb 11.5 L D (12.9-16.9) g/dL Hct 36.3 L (37.5-50.1) % Plt Count 252 (140-400) K/mcL Neutrophils # 12.7 H (1.6-8.9) K/mcL BMP 06/07/17 04:28 Sodium 134 L Potassium 4.1 Chloride 102 Carbon Dioxide 26 BUN 23 Creatinine 0.99 Glucose 192 H Calcium 7.8 L - ABG Interpretation ABG results: ABG ABG pH 7.34 pH Units (7.32-7.45) 06/06/17 09:54 ABG pCO2 44 mmHg (35-45) 06/06/17 09:54 ABG pO2 211 mmHg (85-104) H 06/06/17 09:54 ABG O2 Saturation 100 % (95-98) H 06/06/17 09:54 PT/INR, D-dimer PT 15.1 Seconds (9.4-12.1) H 06/06/17 07:23 Consult Discharge Plan - Plan [facility] Provider[facility] - 06/14/17 2:30 pm <Edy Bach - Last Filed: 06/07/17 18:26> Date of Encounter: 06/07/17 - Constitutional Vitals: Temp Pulse Resp BP Pulse Ox 97.8 F 82 15 134/70 89 06/07/17 17:09 06/07/17 17:09 06/07/17 17:09 06/07/17 17:09 06/07/17 17:09 Internal Medicine: Result - Labs CBC & Chem 7: 06/07/17 04:28 06/07/17 04:28 Labs: Short CBC 06/07/17 Range/Units 04:28 WBC 14.2 H (4.3-11.1) K/mcL Hgb 11.5 L D (12.9-16.9) g/dL Hct 36.3 L (37.5-50.1) % Plt Count 252 (140-400) K/mcL Neutrophils # 12.7 H (1.6-8.9) K/mcL BMP 06/07/17 04:28 Sodium 134 L Potassium 4.1 Chloride 102 Carbon Dioxide 26 BUN 23 Creatinine 0.99 Glucose 192 H Calcium 7.8 L - ABG Interpretation ABG results: ABG ABG pH 7.34 pH Units (7.32-7.45) 06/06/17 09:54 ABG pCO2 44 mmHg (35-45) 06/06/17 09:54 ABG pO2 211 mmHg (85-104) H 06/06/17 09:54 ABG O2 Saturation 100 % (95-98) H 06/06/17 09:54 PT/INR, D-dimer PT 15.1 Seconds (9.4-12.1) H 06/06/17 07:23 - Impressions Impressions Echocardiogram Limited Views 06/06/17 15:10 Impressions: LVEF 55-60%. Normal LV chamber size, wall thickness and function. Left Ventricular Wall Motion: Rest Echo Findings All wall segments showed normal motion. Findings: Study Quality * Technically adequate exam. ECG Findings * Normal sinus rhythm. Left Ventricle * LVEF 55-60%. * Normal LV chamber size, wall thickness and function. * Atypical septal motion noted. Right Ventricle * Normal right ventricular structure and function. IVC * Normal IVC dimensions and inspiratory collapse. Pericardium * The pericardium appears normal. Aorta * Normally sized aortic root. Chest CT 06/07/17 09:00 IMPRESSION: 1. No finding in the chest to account for the history of acute respiratory failure. 2. Chronic appearing changes in the lungs, with large cavitary lesions in the bilateral upper lobes, with cystic bronchiectasis and hilar retraction. Findings are likely sequelae of prior infection/inflammation, including fungal/TB or sarcoidosis. Of note is a small amount of nodular debris within the cavitary left upper lobe lesion, new from the previous exam. A developing aspergilloma (fungal disease), is a consideration. 3. Scattered predominantly subcentimeter pulmonary nodules, not significantly changed from previous examinations. Continued yearly surveillance should be considered. 4. Moderate emphysema. D/ / 06/07/2017 10:10:15 Narayan Galvan MD / michael Interpreting Provider: Narayan Galvan MD - Attending Attestation I conducted a face to face diagnostic evaluation of this patient and my medical decision-making was reviewed with the Resident Physician, Dr Anh Monahan. I agree with the documented findings, disposition and treatment plan as described except to the extent set forth below: We will continue with broad-spectrum antibiotic coverage with cefepime and vancomycin and Levaquin. On exam he has notable expiratory wheezes. There is no lower extremity edema. I provided 5 minutes of smoking cessation counseling to this patient today. Edy Bach MD
--- NOTE | 2017-06-07 09:35 | Cardiology Progress Note ---
Date of Encounter: 06/07/17 Time of Encounter: 09:00 Assessment and Plan (1) Acute exacerbation of chronic obstructive airways disease Current Visit: No Status: Acute Per Cardiology: -acute on chronic COPD exac. -Has severe COPD. Pulm seeing. -States breathing improved today. -Management per primary and pulmonary services. (2) Atrial fibrillation with RVR Current Visit: Yes Status: Acute Per Cardiology: -Known history of paroxysmal atrial fibrillation. -Noted to be A. fib RVR in the 160s to 180s on admisison. -Previously on cardizem drip and amio bolus. -Underwent DCCV in ER. -Currently off cardizem drip. -Average HR overnight noted to be 60, sinus rhythm, Off of cardizem. -On beta lily. -On eliquis for anticoagulation. -Unable to further titrate medications due to average HR 60. -Can consider outpatient evaluation by EP. (3) NSTEMI (non-ST elevated myocardial infarction) Current Visit: Yes Status: Acute Per Cardiology: -S/p LHC yesterday with CHENG to proximal LAD. -On asa, statin, beta lily, and plavix. -Educated on importance of dual anti-platelet therapy uninterrupted for at least 30 days, will re-evaluate in outpatient setting regarding stopping ASA due to triple therapy. Patient states understanding. -Denies chest pain. -Right groin site with mild ecchymosis, no hematoma noted. Right groin site management education explained to patient. Patient states understanding. -LImited TTE pending. -IF not significant findings on TTE, anticipate cardiology sign off. -Will set up outpatient follow up. Discussion w patient/family: The assessment and plan as outlined above was discussed with the patient who expressed understanding and agreement. All questions were answered. Thank you for involving us in the care of your patient. Please call with any questions. Discussed and reviewed with . Subjective Principal diagnosis: a.fib RVR, COPD exacerbation, AMI. Interval history: Patient states he feels much better this morning. Denies chest pain. States shortness of breath is much improved. Objective Vital Signs, Last 4 Hours Temp Pulse Resp BP Pulse Ox 06/07/17 07:42 72 06/07/17 07:40 71 20 95 06/07/17 07:09 98.0 F 68 20 135/77 97 General: Conversant, No Apparent Distress HEENT: Atraumatic, Normocephaly, Mucus Membranes Moist Neck: No JVD, Normal carotid pulses Cardiac: Reg Rate and Rhythm, Normal S1 and S2, No Murmur Lungs: Other (Lung sounds diminished throughout. ) Neuro: Alert and responsive, No focal deficits noted Abdomen: Soft, Non-Tender Skin: No rashes noted on visualized skin, Other (Right groin access site without hematoma, mild ecchymosis. ) Musculoskeletal: No Chest Wall Tenderness Extremities: No Clubbing, No Cyanosis, No Edema, Normal Pulses Results 06/07/17 04:28 06/07/17 04:28 Lab Results Active Medications Acetaminophen (Tylenol) 650 mg PO Q6HR PRN PRN Reason: Mild Pain (1-3) Stop: 12/06/17 11:23 Al Hydrox/Mg Hydrox/Simethicone (Maalox) 30 ml PO Q4H PRN; Protocol PRN Reason: Heartburn Stop: 12/06/17 12:42 Last Admin: 06/06/17 12:50 Dose: 30 ml Albuterol Sulfate (Proventil Neb) 2.5 mg IH TID NATALYA PRN Reason: Protocol Stop: 12/06/17 15:01 Last Admin: 06/06/17 22:26 Dose: 2.5 mg Albuterol Sulfate (Albuterol Inhaler) 2 puff IH Q6H PRN PRN Reason: Shortness Of Breath Stop: 12/06/17 11:23 Apixaban (Eliquis) 5 mg PO BID [facility] Stop: 12/06/17 21:01 Last Admin: 06/07/17 08:28 Dose: 5 mg Aspirin (Aspirin) 81 mg PO DAILY [facility] Stop: 12/07/17 09:01 Last Admin: 06/07/17 08:29 Dose: 81 mg Atorvastatin Calcium (Lipitor) 40 mg PO HS [facility] Stop: 12/06/17 21:01 Last Admin: 06/06/17 19:58 Dose: 40 mg Budesonide/Formoterol Fumarate (Symbicort) 2 puff IH BIDR NATALYA PRN Reason: Protocol Stop: 12/06/17 22:01 Last Admin: 06/06/17 22:26 Dose: 2 puff Clopidogrel Bisulfate (Plavix) 75 mg PO DAILY [facility] Stop: 12/07/17 09:01 Last Admin: 06/07/17 08:28 Dose: 75 mg Docusate Sodium (Colace) 100 mg PO BID [facility] Stop: 12/06/17 21:01 Last Admin: 06/07/17 08:28 Dose: 100 mg Gabapentin (Neurontin) 900 mg PO TID [facility] Stop: 12/06/17 15:01 Last Admin: 06/07/17 08:28 Dose: 900 mg Hydrochlorothiazide (Hydrochlorothiazide) 12.5 mg PO DAILY [facility] PRN Reason: Protocol Stop: 12/07/17 09:01 Last Admin: 06/07/17 08:29 Dose: 12.5 mg Cefepime HCl 2,000 mg/ Sterile (Water) 20 mls @ 300 mls/hr IVP Q8H [facility] Stop: 12/06/17 17:01 Last Admin: 06/07/17 08:31 Dose: 300 mls/hr Levofloxacin/Dextrose (Levaquin Premix 750mg/150 Ml) 750 mg in 150 mls @ 100 mls/hr IVPB DAILY [facility] PRN Reason: Protocol Stop: 12/07/17 09:01 Last Admin: 06/07/17 08:31 Dose: 100 mls/hr Vancomycin HCl 1,000 mg/ (Dextrose) 250 mls @ 167 mls/hr IVPB Q12H [facility] PRN Reason: Protocol Stop: 12/06/17 21:01 Last Infusion: 06/06/17 22:00 Dose: Infused Loratadine (Claritin) 10 mg PO DAILY [facility] Stop: 12/07/17 09:01 Last Admin: 06/07/17 08:28 Dose: 10 mg Melatonin (Melatonin) 9 mg PO HS PRN PRN Reason: Sleep Metoprolol Tartrate (Lopressor) 25 mg PO BID [facility] Stop: 12/06/17 21:01 Last Admin: 06/07/17 08:28 Dose: 25 mg Naloxone HCl (Narcan) 0.4 mg IVP Q2MIN PRN PRN Reason: Opioid Reversal Stop: 12/06/17 11:35 Nicotine (Nicoderm) 21 mg TD DAILY [facility] PRN Reason: Protocol Stop: 12/07/17 09:01 Last Admin: 06/07/17 08:27 Dose: 21 mg Nitroglycerin (Nitroglycerin) 0.4 mg SL Q5MIN PRN PRN Reason: Chest Pain Stop: 12/06/17 11:25 Oxycodone/Acetaminophen (Percocet 10/325) 1 each PO 5XD PRN PRN Reason: Pain Stop: 12/06/17 11:23 Last Admin: 06/06/17 19:59 Dose: 1 each Pantoprazole Sodium (Protonix) 40 mg IVPB DAILY NATALYA Stop: 12/07/17 09:01 Last Admin: 06/07/17 08:29 Dose: 40 mg Sertraline HCl (Zoloft) 150 mg PO DAILY NATALYA Stop: 12/07/17 09:01 Last Admin: 06/07/17 08:29 Dose: 150 mg Theophylline (Oliver-24) 200 mg PO DAILY NATALYA Stop: 12/07/17 09:01 Last Admin: 06/07/17 08:28 Dose: 200 mg Laboratory Tests 06/07/17 06/07/17 04:28 04:28 WBC 14.2 H Hgb 11.5 L D Potassium 4.1 Creatinine 0.99 - Imaging and Cardiology Chest Xray: report reviewed Echo: report reviewed Cardiac cath: report reviewed - EKG Interpretation EKG results cardiology: other (Telemetry reviewed with average HR previous 12 hours noted to be 60, sinus rhythm. PACs noted.) Consult Discharge Plan - Plan Referrals: Tano Das DO [Primary Care Provider] -
[2017-06-07] MEDS: *HR* OxyCODONE/APAP 10/325 TABLET PO PRN ×3 (09:48→21:18)
[2017-06-07] MEDS: Vancomycin 1,000 MG in D5% in Water 250 ML IVPB SCH ×2 (09:49→21:17)
[2017-06-07] MEDS: Albuterol 2.5 MG/3 ML NEBULIZER IH SCH ×3 (10:06→22:42)
[2017-06-07] MEDS: Budesonide/Formoterol 160/4.5 MDI IH SCH ×2 (10:40→22:42)
--- NOTE | 2017-06-07 11:02 | Pulmonology Progress Note ---
Date of Encounter: 06/07/17 Time of Encounter: 11:00 Assessment and Plan (1) Acute exacerbation of chronic obstructive airways disease Current Visit: No Status: Acute Patient presented with most likely viral exacerbation of COPD which probably has triggered A fib with RVR which led to NSTEMI , to continue steroids and antibiotics . 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 Interval history: Patient symptoms are better Objective PUL Vital signs: Last Vital Signs Temp 98.0 F 06/07/17 07:09 Pulse 78 06/07/17 09:58 Resp 22 06/07/17 09:58 BP 135/77 06/07/17 07:09 Pulse Ox 95 06/07/17 09:58 Auscultation: bilateral: other (scattered crackles ) Results - Laboratory Findings CBC and BMP: 06/07/17 04:28 06/07/17 04:28 ABG ABG pH 7.34 pH Units (7.32-7.45) 06/06/17 09:54 ABG pCO2 44 mmHg (35-45) 06/06/17 09:54 ABG pO2 211 mmHg (85-104) H 06/06/17 09:54 ABG O2 Saturation 100 % (95-98) H 06/06/17 09:54 PT/INR, D-dimer PT 15.1 Seconds (9.4-12.1) H 06/06/17 07:23 Abnormal lab findings: Abnormal lab results WBC 14.2 K/mcL (4.3-11.1) H 06/07/17 04:28 Hgb 11.5 g/dL (12.9-16.9) L D 06/07/17 04:28 Hct 36.3 % (37.5-50.1) L 06/07/17 04:28 MCH 27.0 pg (28.0-33.3) L 06/07/17 04:28 RDW 15.9 % (11.5-14.5) H 06/07/17 04:28 MPV 9.1 fL (9.4-12.4) L 06/07/17 04:28 Neutrophils # 12.7 K/mcL (1.6-8.9) H 06/07/17 04:28 PT 15.1 Seconds (9.4-12.1) H 06/06/17 07:23 ABG pO2 211 mmHg (85-104) H 06/06/17 09:54 ABG O2 Saturation 100 % (95-98) H 06/06/17 09:54 VBG HCO3 30 mEq/L (21-27) H 06/06/17 07:44 Sodium 134 mEq/L (136-145) L 06/07/17 04:28 Glucose 192 mg/dL (70-105) H 06/07/17 04:28 POC Glucose 137 (58-89) H 06/06/17 12:10 Calcium 7.8 mg/dL (8.6-10.3) L 06/07/17 04:28 Troponin I 0.09 ng/mL (0-0.03) H* 06/06/17 07:23 - Clinical Findings Intake & Output: Intake & Output 06/06/17 06/07/17 06/07/17 23:59 07:59 15:59 Intake Total 397.0 / 397.0 24.2 / 24.2 480 / 480 Output Total 150 / 150 325 / 325 Balance 247.0 / 247.0 -300.8 / -300.8 480 / 480 Weight 62.2 kg Consult Discharge Plan - Plan [facility]errals: [facility] Care Provider[facility] - 06/14/17 2:30 pm
--- NOTE | 2017-06-07 11:05 | Event Note ---
Date of Encounter: 06/07/17 Time of Encounter: 11:04 - Cardiology Event Note Limited TTE with LVEF 55-60%, no segmental wall motion abnormalities. Cardiology will sign off and will follow in outpatient setting. Follow up set.
[2017-06-07] MEDS ORDERED: Aminoglycoside Consult 1 EACH MC ONE (12:17)
--- NOTE | 2017-06-07 13:13 | Electrocardiograph Report ---
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
--- NOTE | 2017-06-07 13:14 | Electrocardiograph Report ---
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
--- NOTE | 2017-06-07 17:59 | Electrocardiograph Report ---
[address] [address] Test Date: 2017-06-06 Pat Name: Emmanuel Bai Department: 104 Room: 2N07 Gender: M Human Intelligence: RENALDO : 1950 Requested By: David Villalta Order Number: [id number] Reading MD: Vinayak Summers MD Measurements Intervals [place] Rate: 122 P: 85 FL: 162 QRS: 89 QRSD: 94 T: -69 QT: 337 QTc: 410 Interpretive Statements SINUS TACHYCARDIA WITH FREQUENT SUPRAVENTRICULAR PREMATURE COMPLEXES DIFFUSE ISCHEMIC CHANGES Electronically Signed On 06-07-2017 17:57:33 EST by Vinayak Summers MD
--- NOTE | 2017-06-07 17:59 | Electrocardiograph Report ---
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
[2017-06-08] MEDS: Cefepime HCl 2,000 MG in Water for inj. (sterile) 20 ML 20 ML IVP SCH ×2 (00:36→08:08)
[2017-06-08 04:07] LABS: Basophils % 0.1 %; Hemoglobin 10.8 g/dL (12.9-16.9)
[2017-06-08 04:09] LABS: Lymphocytes # 1.7 K/mcL (0.6-4.6); Mean Corpuscular HGB Conc 31.8 g/dL (31.6-35.5); Mean Corpuscular Hemoglobin 27.5 pg (28.0-33.3); Mean Corpuscular Volume 86.5 fL (83.0-100.0); Mean Platelet Volume 9.4 fL (9.4-12.4); Platelet Count 276 K/mcL (140-400); Red Blood Count 3.93 M/mcL (4.19-5.50); Segmented Neutrophils % 84.9 %
[2017-06-08 04:22] LABS: BUN/Creatinine Ratio 21 (6-26); Blood Urea Nitrogen 19 mg/dL (8-23); Calcium 8.4 mg/dL (8.6-10.3); Carbon Dioxide 27 mEq/L (23-29); Chloride 101 mEq/L (98-107); Glucose 119 mg/dL (70-105); Osmolality,Calculated 287 (280-300); Potassium 3.7 mEq/L (3.5-5.1); Sodium 137 mEq/L (136-145); eGFR For African Americans > 60 (> 60); eGFR For Non-African Americans > 60 (> 60)
[2017-06-08 04:27] LABS: Neutrophils # 24.4 K/mcL (1.6-8.9)
[2017-06-08 04:30] LABS: Anisocytosis 1+ (Not Present); Platelet Estimate Normal (Normal)
[2017-06-08] MEDS: hydroCHLOROthiazide 25 MG TABLET PO SCH (08:05)
[2017-06-08] MEDS: Aspirin 81 MG TAB.CHEW PO SCH (08:05)
[2017-06-08] MEDS: Nicotine 21 MG PATCH.TD24 TD SCH (08:05)
[2017-06-08] MEDS: Pantoprazole 40 MG VIAL IVPB SCH (08:05)
[2017-06-08] MEDS: *HR* OxyCODONE/APAP 10/325 TABLET PO PRN ×3 (08:06→20:05)
[2017-06-08] MEDS: Gabapentin 300 MG CAPSULE PO SCH ×3 (08:06→20:05)
[2017-06-08] MEDS: Loratadine 10 MG TABLET PO SCH (08:06)
[2017-06-08] MEDS: APIXABAN 5 MG TABLET PO SCH ×2 (08:07→20:05)
[2017-06-08] MEDS: Levofloxacin 750 MG/150 ML 750 MG/150 ML BAG IVPB SCH ×2 (08:07→17:55)
[2017-06-08] MEDS: Vancomycin 1,000 MG in D5% in Water 250 ML IVPB SCH (08:08)
--- NOTE | 2017-06-08 09:05 | Internal Med Progress Note ---
Addendum entered and electronically signed by Anh Monahan DO 06/08/17 16:25: Stool test negative for C. difficile. Case was discussed with Dr. Bach. Will continue IV levofloxacin for now and NOT start PO vancomycin. Original Note: <Anh Monahan - Last Filed: 06/08/17 15:01> Date of Encounter: 06/08/17 Time of Encounter: 07:30 - Assessment and plan (1) Sepsis Current Visit: Yes Status: Acute Assessment and plan: - 3 SIRS criteria (tachycardia, tachypnea and leukocytosis) with lactic acid 1.5 on admission. - Likely related to suspected C. difficile diarrhea at this time. - Sputum gram stain from no bacteria with culture pending. - Blood cultures NGTD. - Continue hydration with PO fluid. - Discontinue IV vancomycin, cefepime and levofloxacin. - Start PO vancomycin for suspected C. difficile diarrhea. - Continue to monitor closely. Qualifiers: Sepsis type: sepsis due to unspecified organism Qualified Code(s): A41.9 - Sepsis, unspecified organism (2) Diarrhea Current Visit: No Status: Acute Assessment and plan: - Reported 5-6 black watery bowel movements starting last night. - Concern of C. difficile diarrhea, especially given patient is on multiple antibiotics and WBC doubles compared to yesterday. - Stool C. difficile test result pending. - Will start PO vancomycin 125 gram PO QID. 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 - Per pulmonology, patient has bilateral apical giant bullae and no imaging evidence of infected bullae. Patient has severe emphysema with chronic scarring but no new consolidative opacity on CT chest. There is minimal nodular debris which can be fungus growing but no evidence of chronic cavitatory aspergillosis. Pulmonology recommends follow up imaging as outpatient if patient has sudden worsening of respiratory symptoms - Patient reports respiratory status remains at baseline. - Will discontinue IV vancomycin, cefepime and levofloxacin for now, especially given the concern of C. difficile diarrhea. (4) Afib Current Visit: No Status: Chronic Assessment and plan: - Known history of paroxysmal atrial fibrillation. - Was noted to have A-fib RVR in the 160s to 180s in ED. Had Cardizem drip, amiodarone bolus and DC cardioversion in ED. - Was on Cardizem drip overnight but discontinued this morning. - Was in A-fib at rate to 110s but then self-converted to sinus rhythm. - Continue Eliquis for anticoagulation but will increase metoprolol to 50 mg PO BID for better rate control. - Cardiology thinks patient's A-fib RVR in ED is precipitated by missing metoprolol at home. Per cardiology, no other rate-control medication needed at this time but patient will need outpatient follow up with EP after discharge for the juanjose-tachy problem. - Continue telemetry monitoring. Qualifiers: Atrial fibrillation type: paroxysmal Qualified Code(s): I48.0 - Paroxysmal atrial fibrillation (5) NSTEMI (non-ST elevated myocardial infarction) Current Visit: Yes Status: Acute Assessment and plan: - With chest pain and elevated troponin 0.09 on admission. - Initial ECG showed ST depressions throughout and elevations in aVL and aVR. No STEMI alert warranted per cardiology at that time. But repeat ECG after DC cardioversion showed sinus tachycardia and ST elevations in V1 and V2 so patient was taken to director of cath lab urgently for evaluate of known LAD lesion. - LHC on 06/06/17 found 2-vessel CAD, LVEF 65% and a CHENG placed in the proximal LAD. FFR measurement: 0.81 of the LMCA. - Continue aspirin, Plavix, Lipitor, metoprolol, nitroglycerin prn. (6) CAD (coronary artery disease) Current Visit: No Status: Chronic Assessment and plan: - See above. Qualifiers: Coronary Disease-Associated Artery/Lesion type: [place] artery [place] vs. transplanted heart: [place] heart Associated angina: without angina Qualified Code(s): I25.10 - Atherosclerotic heart disease of [place] coronary artery without angina pectoris (7) COPD (chronic obstructive pulmonary disease) Current Visit: Yes Status: Acute Assessment and plan: - Continue bronchodilators, Symbicort and supplemental oxygen. Qualifiers: COPD type: emphysema Emphysema type: unspecified Qualified Code(s): J43.9 - Emphysema, unspecified (8) HTN (hypertension) Current Visit: No Status: Chronic Assessment and plan: - BP within normal range. - Continue current hypertensive regimen. Qualifiers: Hypertension type: essential hypertension Qualified Code(s): I10 - Essential (primary) hypertension (9) HLD (hyperlipidemia) Current Visit: No Status: Chronic Assessment and plan: - Continue Lipitor. Qualifiers: Hyperlipidemia type: unspecified Qualified Code(s): E78.5 - Hyperlipidemia , unspecified (10) Tobacco abuse Current Visit: No Status: Chronic Assessment and plan: - Known smoking history for more than 40 years. - Smoking cessation counseling. - Continue nicotine patch. (11) DVT prophylaxis Current Visit: No Status: Acute Assessment and plan: - Continue Eliquis - Subjective Interval history: Patient was noted to have A-fib at rate of 110s earlier this morning but then self-convert back to sinus rhythm. Patient was seen and examined this morning. Patient reports breathing remains at his baseline and denies chest pain/ discomfort, fever, chills. Patient does have 5-6 bowel movements since last night which patient describes as black water stool. Patient reports no known diagnosis of C. difficile infection - Constitutional Vitals: Temp Pulse Resp BP Pulse Ox 98.9 F 118 20 125/82 92 06/08/17 07:55 06/08/17 07:55 06/08/17 07:55 06/08/17 07:55 06/08/17 07:55 General appearance: Present: A&O X 3, pleasant, no acute distress, answers questions appropriately - Head Head exam: Present: atraumatic, normocephalic - Eye Eye exam: Present: EOMI, conjuntiva pink, sclera anicteric - Neck Neck exam general surgery: Present: supple, trachea midline. Absent: lymphadenopathy - Respiratory Respiratory exam: Present: wheezes. Absent: accessory muscle use, rales, rhonchi - Cardiovascular Cardiovascular exam: Present: tachycardia - GI/Abdominal GI/Abdominal exam: Present: normal bowel sounds, soft, no peritoneal signs. Absent: distended, tenderness - Extremities Exam Extremities exam: Present: warm. Absent: calf tenderness, cyanotic, pedal edema - Neurological Exam Neurological exam: Present: alert, oriented X3, no focal deficits. Absent: facial droop, speech deficit - Skin Skin exam: Present: dry, warm Internal Medicine: Result - Labs CBC & Chem 7: 06/08/17 03:32 06/08/17 03:32 Labs: Short CBC 06/08/17 Range/Units 03:32 WBC 28.7 H D (4.3-11.1) K/mcL Hgb 10.8 L (12.9-16.9) g/dL Hct 34.0 L (37.5-50.1) % Plt Count 276 (140-400) K/mcL Neutrophils # 24.4 H (1.6-8.9) K/mcL BMP 06/08/17 03:32 Sodium 137 Potassium 3.7 Chloride 101 Carbon Dioxide 27 BUN 19 Creatinine 0.91 Glucose 119 H Calcium 8.4 L - ABG Interpretation ABG results: ABG ABG pH 7.34 pH Units (7.32-7.45) 06/06/17 09:54 ABG pCO2 44 mmHg (35-45) 06/06/17 09:54 ABG pO2 211 mmHg (85-104) H 06/06/17 09:54 ABG O2 Saturation 100 % (95-98) H 06/06/17 09:54 PT/INR, D-dimer PT 15.1 Seconds (9.4-12.1) H 06/06/17 07:23 - Impressions Impressions Echocardiogram Limited Views 06/06/17 15:10 Impressions: LVEF 55-60%. Normal LV chamber size, wall thickness and function. Left Ventricular Wall Motion: Rest Echo Findings All wall segments showed normal motion. Findings: Study Quality * Technically adequate exam. ECG Findings * Normal sinus rhythm. Left Ventricle * LVEF 55-60%. * Normal LV chamber size, wall thickness and function. * Atypical septal motion noted. Right Ventricle * Normal right ventricular structure and function. IVC * Normal IVC dimensions and inspiratory collapse. Pericardium * The pericardium appears normal. Aorta * Normally sized aortic root. Chest CT 06/07/17 09:00 IMPRESSION: 1. No finding in the chest to account for the history of acute respiratory failure. 2. Chronic appearing changes in the lungs, with large cavitary lesions in the bilateral upper lobes, with cystic bronchiectasis and hilar retraction. Findings are likely sequelae of prior infection/inflammation, including fungal/TB or sarcoidosis. Of note is a small amount of nodular debris within the cavitary left upper lobe lesion, new from the previous exam. A developing aspergilloma (fungal disease), is a consideration. 3. Scattered predominantly subcentimeter pulmonary nodules, not significantly changed from previous examinations. Continued yearly surveillance should be considered. 4. Moderate emphysema. D/ / 06/07/2017 10:10:15 Narayan Galvan MD / dagmar Interpreting Provider: Narayan Galvan MD Consult Discharge Plan - Plan [facility]errals: [facility]Primary Care Provider[facility] - 06/14/17 2:30 pm <Edy Bach - Last Filed: 06/09/17 08:03> Date of Encounter: 06/08/17 - Constitutional Vitals: Temp Pulse Resp BP Pulse Ox 98.8 F 95 20 105/69 95 06/09/17 07:49 06/09/17 07:49 06/09/17 07:49 06/09/17 07:49 06/09/17 07:49 Internal Medicine: Result - Labs CBC & Chem 7: 06/09/17 04:17 06/09/17 04:17 Labs: Short CBC 06/09/17 Range/Units 04:17 WBC 15.8 H (4.3-11.1) K/mcL Hgb 11.6 L (12.9-16.9) g/dL Hct 36.6 L (37.5-50.1) % Plt Count 302 (140-400) K/mcL Neutrophils # 10.6 H (1.6-8.9) K/mcL BMP 06/09/17 04:17 Sodium 138 Potassium 3.8 Chloride 102 Carbon Dioxide 33 H BUN 15 Creatinine 0.86 Glucose 80 Calcium 8.6 - ABG Interpretation ABG results: ABG ABG pH 7.34 pH Units (7.32-7.45) 06/06/17 09:54 ABG pCO2 44 mmHg (35-45) 06/06/17 09:54 ABG pO2 211 mmHg (85-104) H 06/06/17 09:54 ABG O2 Saturation 100 % (95-98) H 06/06/17 09:54 PT/INR, D-dimer PT 15.1 Seconds (9.4-12.1) H 06/06/17 07:23 - Attending Attestation I conducted a face to face diagnostic evaluation of this patient and my medical decision-making was reviewed with the Resident Physician, Dr Anh Monahan. I agree with the documented findings, disposition and treatment plan as described except to the extent set forth below: Patient reports shortness of breath today, moderate at rest, worse with ambulation. His oxygen saturation is 91-94% on room air. He does report having diarrhea today. Abdomen is soft and nontender. We will continue with antibiotics, steroids. Check C. difficile toxin. Edy Bach MD
--- NOTE | 2017-06-08 10:51 | Pulmonology Progress Note ---
Date of Encounter: 06/08/17 Time of Encounter: 10:30 Assessment and Plan (1) Acute exacerbation of chronic obstructive airways disease Current Visit: No Status: Acute Patient presented with most likely exacerbation of COPD which probably has triggered A fib with RVR which led to NSTEMI , to continue steroids and antibiotics . To continue the current regimen of bronchodilators . (2) NSTEMI (non-ST elevated myocardial infarction) Current Visit: Yes Status: Acute Patient doesnt have any chest pain to continue management according to cardiology , his episodic shortness of breadth correlates with A fib with RVR . 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 Subjective Principal diagnosis: a.fib RVR, COPD exacerbation, AMI. 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 Now he is back to baseline Objective PUL Vital signs: Last Vital Signs Temp 98.9 F 06/08/17 07:55 Pulse 96 06/08/17 10:01 Resp 20 06/08/17 07:55 BP 125/82 06/08/17 07:55 Pulse Ox 92 06/08/17 07:55 Auscultation: bilateral: wheezes Results - Laboratory Findings CBC and BMP: 06/08/17 03:32 06/08/17 03:32 ABG ABG pH 7.34 pH Units (7.32-7.45) 06/06/17 09:54 ABG pCO2 44 mmHg (35-45) 06/06/17 09:54 ABG pO2 211 mmHg (85-104) H 06/06/17 09:54 ABG O2 Saturation 100 % (95-98) H 06/06/17 09:54 PT/INR, D-dimer PT 15.1 Seconds (9.4-12.1) H 06/06/17 07:23 Abnormal lab findings: Abnormal lab results WBC 28.7 K/mcL (4.3-11.1) H D 06/08/17 03:32 RBC 3.93 M/mcL (4.19-5.50) L 06/08/17 03:32 Hgb 10.8 g/dL (12.9-16.9) L 06/08/17 03:32 Hct 34.0 % (37.5-50.1) L 06/08/17 03:32 MCH 27.5 pg (28.0-33.3) L 06/08/17 03:32 RDW 16.0 % (11.5-14.5) H 06/08/17 03:32 Neutrophils # 24.4 K/mcL (1.6-8.9) H 06/08/17 03:32 Monocytes # 2.0 K/mcL (0.0-1.3) H 06/08/17 03:32 Anisocytosis 1+ (Not Present) A 06/08/17 03:32 PT 15.1 Seconds (9.4-12.1) H 06/06/17 07:23 ABG pO2 211 mmHg (85-104) H 06/06/17 09:54 ABG O2 Saturation 100 % (95-98) H 06/06/17 09:54 VBG HCO3 30 mEq/L (21-27) H 06/06/17 07:44 Glucose 119 mg/dL (70-105) H 06/08/17 03:32 POC Glucose 137 (58-89) H 06/06/17 12:10 Calcium 8.4 mg/dL (8.6-10.3) L 06/08/17 03:32 Troponin I 0.09 ng/mL (0-0.03) H* 06/06/17 07:23 - Microbiology Findings Microbiology Findings: Microbiology, Last 48 Hours 06/07/17 15:00 Sputum Culture - Final Sputum - Clinical Findings Intake & Output: Intake & Output 06/07/17 06/08/17 06/08/17 23:59 07:59 15:59 Intake Total 1070 / 1070 Output Total 350 / 350 200 / 200 Balance 720 / 720 -180 / -180 Weight 64.7 kg Consult Discharge Plan - Plan [facility]errals: [facility] [Primary Care Provider[facility] - 06/14/17 2:30 pm
[2017-06-08] MEDS: Albuterol 2.5 MG/3 ML NEBULIZER IH SCH ×3 (11:03→22:05)
[2017-06-08] MEDS: Budesonide/Formoterol 160/4.5 MDI IH SCH ×2 (11:03→22:05)
[2017-06-08] MEDS ORDERED: Furosemide 40 MG/4 ML VIAL IVP ONE (12:36)
[2017-06-08] MEDS ORDERED: Vancomycin Oral Soln 250 MG/5 ML UDC PO SCH (17:00)
[2017-06-09 05:02] LABS: Basophils % 0.2 %; Eosinophils # 0.3 K/mcL (0.0-0.6); Hematocrit 36.6 % (37.5-50.1); Hemoglobin 11.6 g/dL (12.9-16.9); Lymphocytes # 2.9 K/mcL (0.6-4.6); Lymphocytes % 18.4 %; Mean Corpuscular HGB Conc 31.7 g/dL (31.6-35.5); Mean Corpuscular Hemoglobin 27.6 pg (28.0-33.3); Mean Corpuscular Volume 86.9 fL (83.0-100.0); Mean Platelet Volume 9.5 fL (9.4-12.4); Monocytes # 1.7 K/mcL (0.0-1.3); Monocytes % 10.9 %; Neutrophils # 10.6 K/mcL (1.6-8.9); Platelet Count 302 K/mcL (140-400); Red Blood Count 4.21 M/mcL (4.19-5.50); Red Cell Distribution Width 16.1 % (11.5-14.5); Segmented Neutrophils % 67.5 %
[2017-06-09 05:06] LABS: BUN/Creatinine Ratio 17 (6-26); Blood Urea Nitrogen 15 mg/dL (8-23); Calcium 8.6 mg/dL (8.6-10.3); Carbon Dioxide 33 mEq/L (23-29); Chloride 102 mEq/L (98-107); Glucose 80 mg/dL (70-105); Osmolality,Calculated 286 (280-300); Potassium 3.8 mEq/L (3.5-5.1); Sodium 138 mEq/L (136-145); eGFR For African Americans > 60 (> 60); eGFR For Non-African Americans > 60 (> 60)
[2017-06-09] MEDS: APIXABAN 5 MG TABLET PO SCH ×2 (07:56→21:23)
[2017-06-09] MEDS: hydroCHLOROthiazide 25 MG TABLET PO SCH (07:56)
[2017-06-09] MEDS: Gabapentin 300 MG CAPSULE PO SCH ×3 (07:56→21:23)
[2017-06-09] MEDS: Mag Hydrox/Al Hydrox/Simeth 30 ML UDC PO PRN (07:56)
[2017-06-09] MEDS: Nicotine 21 MG PATCH.TD24 TD SCH (07:56)
[2017-06-09] MEDS: Aspirin 81 MG TAB.CHEW PO SCH (07:57)
[2017-06-09] MEDS: Loratadine 10 MG TABLET PO SCH (07:57)
[2017-06-09] MEDS: Levofloxacin 750 MG/150 ML 750 MG/150 ML BAG IVPB SCH (07:57)
[2017-06-09] MEDS: *HR* OxyCODONE/APAP 10/325 TABLET PO PRN ×4 (08:04→22:03)
[2017-06-09] MEDS: Albuterol 2.5 MG/3 ML NEBULIZER IH SCH ×3 (08:14→21:33)
[2017-06-09] MEDS: Budesonide/Formoterol 160/4.5 MDI IH SCH ×2 (08:17→21:34)
--- NOTE | 2017-06-09 08:55 | Internal Med Progress Note ---
<Anh Monahan - Last Filed: 06/09/17 09:51> Date of Encounter: 06/09/17 Time of Encounter: 08:00 - Assessment and plan (1) Diarrhea Current Visit: No Status: Acute Assessment and plan: - Reported 5-6 black watery bowel movements starting 06/07/17 night. - Stool test for C. difficile negative. - Likely viral gastroenteritis and will check GI infection panel. - Patient still reports having 5 water bowel movements overnight.. - Continue supportive care. Qualifiers: Diarrhea type: presumed infectious Qualified Code(s): A09 - Infectious gastroenteritis and colitis, unspecified (2) Sepsis Current Visit: Yes Status: Acute Assessment and plan: - 3 SIRS criteria (tachycardia, tachypnea and leukocytosis) with lactic acid 1.5 on admission. - Likely related to suspected pneumonia. Current diarrhea likely from viral gastroenteritis likely also plays some role. - Sputum gram stain from no bacteria with culture pending. - Blood cultures NGTD. - Improves as tachycardia and tachypnea resolved along with decrease in leukocytosis. - Continue hydration with PO fluid. - Continue IV levofloxacin (since 06/07/17) for suspected pneumonia. 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 - Per pulmonology, patient has bilateral apical giant bullae and no imaging evidence of infected bullae. Patient has severe emphysema with chronic scarring but no new consolidative opacity on CT chest. There is minimal nodular debris which can be fungus growing but no evidence of chronic cavitatory aspergillosis. Pulmonology recommends follow up imaging as outpatient if patient has sudden worsening of respiratory symptoms - Patient reports respiratory status remains at baseline. - Continue IV levofloxacin (since 06/07/17) for suspected pneumonia (4) Afib Current Visit: No Status: Chronic Assessment and plan: - Known history of paroxysmal atrial fibrillation. - Was noted to have A-fib RVR in the 160s to 180s in ED. Had Cardizem drip, amiodarone bolus and DC cardioversion in ED. - Was on Cardizem drip overnight but discontinued this morning. - Currently rate controlled. - Continue metoprolol for rate control and Eliquis for anticoagulation. - Cardiology thinks patient's A-fib RVR in ED is precipitated by missing metoprolol at home. Per cardiology, no other rate-control medication needed at this time but patient will need outpatient follow up with EP after discharge for the juanjose-tachy problem. - Continue telemetry monitoring. Qualifiers: Atrial fibrillation type: paroxysmal Qualified Code(s): I48.0 - Paroxysmal atrial fibrillation (5) NSTEMI (non-ST elevated myocardial infarction) Current Visit: Yes Status: Acute Assessment and plan: - With chest pain and elevated troponin 0.09 on admission. - Initial ECG showed ST depressions throughout and elevations in aVL and aVR. No STEMI alert warranted per cardiology at that time. But repeat ECG after DC cardioversion showed sinus tachycardia and ST elevations in V1 and V2 so patient was taken to clinical laboratory director urgently for evaluate of known LAD lesion. - LHC on 06/06/17 found 2-vessel CAD, LVEF 65% and a CHENG placed in the proximal LAD. FFR measurement: 0.81 of the LMCA. - Continue aspirin, Plavix, Lipitor, metoprolol, nitroglycerin prn. (6) CAD (coronary artery disease) Current Visit: No Status: Chronic Assessment and plan: - See above. Qualifiers: Coronary Disease-Associated Artery/Lesion type: [place] artery [place] vs. transplanted heart: [place] heart Associated angina: without angina Qualified Code(s): I25.10 - Atherosclerotic heart disease of [place] coronary artery without angina pectoris (7) COPD (chronic obstructive pulmonary disease) Current Visit: Yes Status: Acute Assessment and plan: - Continue bronchodilators, Symbicort and supplemental oxygen. Qualifiers: COPD type: emphysema Emphysema type: unspecified Qualified Code(s): J43.9 - Emphysema, unspecified (8) HTN (hypertension) Current Visit: No Status: Chronic Assessment and plan: - BP within normal range. - Continue current hypertensive regimen. Qualifiers: Hypertension type: essential hypertension Qualified Code(s): I10 - Essential (primary) hypertension (9) HLD (hyperlipidemia) Current Visit: No Status: Chronic Assessment and plan: - Continue Lipitor. Qualifiers: Hyperlipidemia type: unspecified Qualified Code(s): E78.5 - Hyperlipidemia , unspecified (10) Tobacco abuse Current Visit: No Status: Chronic Assessment and plan: - Known smoking history for more than 40 years. - Smoking cessation counseling. - Continue nicotine patch. (11) DVT prophylaxis Current Visit: No Status: Acute Assessment and plan: - Continue Eliquis - Subjective Interval history: Patient was seen and examined this morning. Patient reports feeling weak today and still has 5 dark brown watery bowel movements overnight. Patient denies chest pain/discomfort, shortness of breath, fever, chills. - Constitutional Vitals: Temp Pulse Resp BP Pulse Ox 98.8 F 99 20 105/69 95 06/09/17 07:49 06/09/17 08:15 06/09/17 07:49 06/09/17 07:49 06/09/17 07:49 General appearance: Present: mild distress, A&O X 3, answers questions appropriately - Head Head exam: Present: atraumatic, normocephalic - Eye Eye exam: Present: EOMI, sclera anicteric - Neck Neck exam general surgery: Present: supple, trachea midline - Respiratory Respiratory exam: Present: wheezes. Absent: accessory muscle use, rales, rhonchi - Cardiovascular Cardiovascular exam: Present: RRR, +S1, +S2 - GI/Abdominal GI/Abdominal exam: Present: normal bowel sounds, soft, no peritoneal signs. Absent: distended, tenderness - Extremities Exam Extremities exam: Present: warm. Absent: cyanotic, pedal edema - Neurological Exam Neurological exam: Present: alert, oriented X3. Absent: facial droop, speech deficit - Skin Skin exam: Present: dry, intact, warm Internal Medicine: Result - Labs CBC & Chem 7: 06/09/17 04:17 06/09/17 04:17 Labs: Short CBC 06/09/17 Range/Units 04:17 WBC 15.8 H (4.3-11.1) K/mcL Hgb 11.6 L (12.9-16.9) g/dL Hct 36.6 L (37.5-50.1) % Plt Count 302 (140-400) K/mcL Neutrophils # 10.6 H (1.6-8.9) K/mcL BMP 06/09/17 04:17 Sodium 138 Potassium 3.8 Chloride 102 Carbon Dioxide 33 H BUN 15 Creatinine 0.86 Glucose 80 Calcium 8.6 - ABG Interpretation ABG results: ABG ABG pH 7.34 pH Units (7.32-7.45) 06/06/17 09:54 ABG pCO2 44 mmHg (35-45) 06/06/17 09:54 ABG pO2 211 mmHg (85-104) H 06/06/17 09:54 ABG O2 Saturation 100 % (95-98) H 06/06/17 09:54 PT/INR, D-dimer PT 15.1 Seconds (9.4-12.1) H 06/06/17 07:23 Consult Discharge Plan - Plan [facility]errals: [facility] [Primary Care Provider[facility] - 06/14/17 2:30 pm <Edy Bach - Last Filed: 06/09/17 18:15> Date of Encounter: 06/09/17 - Constitutional Vitals: Temp Pulse Resp BP Pulse Ox 99.5 F 91 20 120/73 98 06/09/17 16:24 06/09/17 16:24 06/09/17 16:24 06/09/17 16:24 06/09/17 16:24 Internal Medicine: Result - Labs CBC & Chem 7: 06/09/17 04:17 06/09/17 04:17 Labs: Short CBC 06/09/17 Range/Units 04:17 WBC 15.8 H (4.3-11.1) K/mcL Hgb 11.6 L (12.9-16.9) g/dL Hct 36.6 L (37.5-50.1) % Plt Count 302 (140-400) K/mcL Neutrophils # 10.6 H (1.6-8.9) K/mcL BMP 06/09/17 04:17 Sodium 138 Potassium 3.8 Chloride 102 Carbon Dioxide 33 H BUN 15 Creatinine 0.86 Glucose 80 Calcium 8.6 - ABG Interpretation ABG results: ABG ABG pH 7.34 pH Units (7.32-7.45) 06/06/17 09:54 ABG pCO2 44 mmHg (35-45) 06/06/17 09:54 ABG pO2 211 mmHg (85-104) H 06/06/17 09:54 ABG O2 Saturation 100 % (95-98) H 06/06/17 09:54 PT/INR, D-dimer PT 15.1 Seconds (9.4-12.1) H 06/06/17 07:23 - Attending Attestation I conducted a face to face diagnostic evaluation of this patient and my medical decision-making was reviewed with the Resident Physician. I agree with the documented findings, disposition and treatment plan as described except to the extent set forth below: Continue with steroids, inhaled bronchodilators and Levaquin. Add Restoril for sleeping aid. Continue PT OT. Add incentive spirometry. Patient continues to have diarrhea. C. difficile was negative. GI infectious panel was negative. I will add Imodium. Edy Bach MD
--- NOTE | 2017-06-09 12:59 | Pulmonology Progress Note ---
Date of Encounter: 06/09/17 Time of Encounter: 13:00 Assessment and Plan (1) Acute exacerbation of chronic obstructive airways disease Current Visit: No Status: Acute Patient presented with most likely exacerbation of COPD which probably has triggered A fib with RVR which led to NSTEMI , to continue prednisone 40 mg po .and antibiotics .He is on chronic prednisone 10 mg OD he should tapered to that dose . To continue the current regimen of bronchodilators . (2) NSTEMI (non-ST elevated myocardial infarction) Current Visit: Yes Status: Acute Patient doesnt have any chest pain to continue management according to cardiology , his episodic shortness of breadth correlates with A fib with RVR . 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 Subjective Principal diagnosis: a.fib RVR, COPD exacerbation, AMI. 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 Now he is back to baseline Objective PUL Vital signs: Last Vital Signs Temp 99.3 F 06/09/17 12:24 Pulse 87 06/09/17 12:24 Resp 20 06/09/17 12:24 BP 123/81 06/09/17 12:24 Pulse Ox 98 06/09/17 12:24 General appearance: no acute distress Auscultation: bilateral: wheezes Cardiovascular: irregular rhythm Results - Laboratory Findings CBC and BMP: 06/09/17 04:17 06/09/17 04:17 ABG ABG pH 7.34 pH Units (7.32-7.45) 06/06/17 09:54 ABG pCO2 44 mmHg (35-45) 06/06/17 09:54 ABG pO2 211 mmHg (85-104) H 06/06/17 09:54 ABG O2 Saturation 100 % (95-98) H 06/06/17 09:54 PT/INR, D-dimer PT 15.1 Seconds (9.4-12.1) H 06/06/17 07:23 Abnormal lab findings: Abnormal lab results WBC 15.8 K/mcL (4.3-11.1) H 06/09/17 04:17 Hgb 11.6 g/dL (12.9-16.9) L 06/09/17 04:17 Hct 36.6 % (37.5-50.1) L 06/09/17 04:17 MCH 27.6 pg (28.0-33.3) L 06/09/17 04:17 RDW 16.1 % (11.5-14.5) H 06/09/17 04:17 Neutrophils # 10.6 K/mcL (1.6-8.9) H 06/09/17 04:17 Monocytes # 1.7 K/mcL (0.0-1.3) H 06/09/17 04:17 Anisocytosis 1+ (Not Present) A 06/08/17 03:32 PT 15.1 Seconds (9.4-12.1) H 06/06/17 07:23 ABG pO2 211 mmHg (85-104) H 06/06/17 09:54 ABG O2 Saturation 100 % (95-98) H 06/06/17 09:54 VBG HCO3 30 mEq/L (21-27) H 06/06/17 07:44 Carbon Dioxide 33 mEq/L (23-29) H 06/09/17 04:17 POC Glucose 137 (58-89) H 06/06/17 12:10 Troponin I 0.09 ng/mL (0-0.03) H* 06/06/17 07:23 - Microbiology Findings Microbiology Findings: Microbiology, Last 48 Hours 06/07/17 15:00 Sputum Culture - Final Sputum - Clinical Findings Intake & Output: Intake & Output 06/08/17 06/09/17 06/09/17 23:59 07:59 15:59 Intake Total 790 / 790 360 / 360 Output Total 400 / 400 220 / 220 Balance 390 / 390 -220 / -220 360 / 360 Weight 62.9 kg Consult Discharge Plan - Plan [facility]: [facility] Care Provider[facility] - 06/14/17 2:30 pm
[2017-06-09 16:13] LABS: Adenovirus F 40/41 PCR Not detected (Not detect); Astrovirus PCR Not detected (Not detect); C.difficile Toxin A/B by PCR Not detected (Not detect); Campylobacter by PCR Not detected (Not detect); Cryptosporidium by PCR Not detected (Not detect); Cyclospora cayetanensis PCR Not detected (Not detect); E. coli O157 by PCR Not detected (Not detect); Entamoeba histolytica PCR Not detected (Not detect); Enteroaggregative E.coli(EAEC) Not detected (Not detect); Enteropathogenic E.coli(EPEC) Not detected (Not detect); Enterotoxigenic E.coli (ETEC) Not detected (Not detect); Giardia lamblia PCR Not detected (Not detect); Norovirus GI/GII PCR Not detected (Not detect); Plesiomonas shigelloides PCR Not detected (Not detect); Rotavirus A PCR Not detected (Not detect); Salmonella PCR Not detected (Not detect); Sapovirus PCR Not detected (Not detect); Shig/EnteroinvasiveE coli EIEC Not detected (Not detect); Shigalike tox-prod E coli STEC Not detected (Not detect); Vibrio PCR Not detected (Not detect); Vibrio cholerae PCR Not detected (Not detect); Yersinia enterocolitica PCR Not detected (Not detect)
[2017-06-09] MEDS: Psyllium 1 PACKET POWD.PACK PO SCH ×2 (17:53→20:07)
[2017-06-09] MEDS ORDERED: Temazepam 15 MG CAPSULE PO PRN (18:12)
[2017-06-10 04:08] LABS: Basophils # 0.1 K/mcL (0.0-0.2); Basophils % 0.6 %; Eosinophils # 0.5 K/mcL (0.0-0.6); Eosinophils % 3.3 %; Hematocrit 36.8 % (37.5-50.1); Hemoglobin 11.1 g/dL (12.9-16.9); Immature Granulocytes % 3.4 % (0-4); Lymphocytes # 2.9 K/mcL (0.6-4.6); Lymphocytes % 18.9 %; Mean Corpuscular HGB Conc 30.2 g/dL (31.6-35.5); Mean Corpuscular Hemoglobin 26.5 pg (28.0-33.3); Mean Corpuscular Volume 87.8 fL (83.0-100.0); Mean Platelet Volume 9.6 fL (9.4-12.4); Monocytes # 1.6 K/mcL (0.0-1.3); Monocytes % 10.5 %; Neutrophils # 9.8 K/mcL (1.6-8.9); Platelet Count 353 K/mcL (140-400); Red Blood Count 4.19 M/mcL (4.19-5.50); Red Cell Distribution Width 16.1 % (11.5-14.5); Segmented Neutrophils % 63.3 %
[2017-06-10 04:27] LABS: BUN/Creatinine Ratio 18 (6-26); Blood Urea Nitrogen 15 mg/dL (8-23); Calcium 8.6 mg/dL (8.6-10.3); Carbon Dioxide 31 mEq/L (23-29); Chloride 100 mEq/L (98-107); Glucose 77 mg/dL (70-105); Osmolality,Calculated 282 (280-300); Sodium 136 mEq/L (136-145); eGFR For African Americans > 60 (> 60); eGFR For Non-African Americans > 60 (> 60)
--- NOTE | 2017-06-10 07:45 | Pulmonology Progress Note ---
Date of Encounter: 06/10/17 Time of Encounter: 07:40 Assessment and Plan (1) Acute exacerbation of chronic obstructive airways disease Status: Acute Patient presented with most likely exacerbation of COPD which probably has triggered A fib with RVR which led to NSTEMI , to continue prednisone 40 mg po .and antibiotics .He is on chronic prednisone 10 mg OD he should tapered to that dose .Send home on 5 days of oral antibiotics To continue the current regimen of bronchodilators . (2) NSTEMI (non-ST elevated myocardial infarction) Status: Acute Patient doesnt have any chest pain to continue management according to cardiology , his episodic shortness of breadth correlates with A fib with RVR . (3) Bulla of lung Status: Chronic Patient has bilateral apical giant bullae , there is no imaging evidence of infected bullae , patient has severe emphysema CT scan chronic scarring no new consolidative opacity , there is minimal nodular debris which can be fungus growing , no evidence of chronic cavitatory aspergillosis to do follow up imaging as outpatient if he has sudden worsening of his COPD symptoms . Subjective Principal diagnosis: a.fib RVR, COPD exacerbation, AMI. 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 Objective PUL Vital signs: Last Vital Signs Temp 99.2 F 06/10/17 07:34 Pulse 89 06/10/17 07:34 Resp 18 06/10/17 07:34 BP 117/72 06/10/17 07:34 Pulse Ox 97 06/10/17 07:34 Auscultation: bilateral: rhonchi (scattered rhonchi) Results - Laboratory Findings CBC and BMP: 06/10/17 02:08 06/10/17 02:08 ABG ABG pH 7.34 pH Units (7.32-7.45) 06/06/17 09:54 ABG pCO2 44 mmHg (35-45) 06/06/17 09:54 ABG pO2 211 mmHg (85-104) H 06/06/17 09:54 ABG O2 Saturation 100 % (95-98) H 06/06/17 09:54 PT/INR, D-dimer PT 15.1 Seconds (9.4-12.1) H 06/06/17 07:23 Abnormal lab findings: Abnormal lab results WBC 15.4 K/mcL (4.3-11.1) H 06/10/17 02:08 Hgb 11.1 g/dL (12.9-16.9) L 06/10/17 02:08 Hct 36.8 % (37.5-50.1) L 06/10/17 02:08 MCH 26.5 pg (28.0-33.3) L 06/10/17 02:08 MCHC 30.2 g/dL (31.6-35.5) L 06/10/17 02:08 RDW 16.1 % (11.5-14.5) H 06/10/17 02:08 Neutrophils # 9.8 K/mcL (1.6-8.9) H 06/10/17 02:08 Monocytes # 1.6 K/mcL (0.0-1.3) H 06/10/17 02:08 Anisocytosis 1+ (Not Present) A 06/08/17 03:32 PT 15.1 Seconds (9.4-12.1) H 06/06/17 07:23 ABG pO2 211 mmHg (85-104) H 06/06/17 09:54 ABG O2 Saturation 100 % (95-98) H 06/06/17 09:54 VBG HCO3 30 mEq/L (21-27) H 06/06/17 07:44 Carbon Dioxide 31 mEq/L (23-29) H 06/10/17 02:08 POC Glucose 137 (58-89) H 06/06/17 12:10 Troponin I 0.09 ng/mL (0-0.03) H* 06/06/17 07:23 - Microbiology Findings Microbiology Findings: Microbiology, Last 48 Hours 06/07/17 15:00 Sputum Culture - Final Sputum - Clinical Findings Intake & Output: Intake & Output 06/09/17 06/09/17 06/10/17 15:59 23:59 07:59 Intake Total 480 / 480 240 / 240 0 / 0 Output Total 200 / 200 Balance 480 / 480 40 / 40 0 / 0 Weight 62.9 kg Consult Discharge Plan - Plan Instructions: Myocardial Infarction (DC), Atrial Fibrillation (DC), Chronic Obstructive Pulmonary Disease (DC), Pneumonia (DC) Additional Instructions: Please take prednisone taper using 10-mg tablets: 4 tablets daily x 2 days, then 3 tablets daily x 2 days, followed by 2 tablets daily x 2 days and finally 1 tablets (10 mg) daily. Please take one more day of prescribed levofloxacin 750 mg by mouth daily to finish 5-day course of antibiotic therapy. Please take prescribed Plavix 75 mg daily. Please note that your metoprolol (Lopressor) has been increased to 50 mg twice a day. You can use prescribed sucralfate for abdominal discomfort and psyllium as needed for your diarrhea. Please follow up with your primary care provider [facility] within a week regarding your hospitalization and the need of referral to cardiology/electrophysiology regarding your juanjose-tachy problem. Referrals: [facility],PCP [Primary Care Provider] - 06/14/17 2:30 pm Prescriptions: Clopidogrel [Plavix] 75 mg PO DAILY #30 tablet levoFLOXacin [Levofloxacin] 750 mg PO DAILY #1 tablet Metoprolol [Lopressor] 50 mg PO BID #120 tablet predniSONE [PredniSONE] See Taper PO DAILY #20 tablet Psyllium [Metamucil Fiber Singles Packet] 1 packet PO TID #21 powd.pack Sucralfate [Carafate] 1 gm PO TIDWM #21 udc Temazepam [Restoril] 15 mg PO HS PRN #7 capsule PRN Reason: Insomnia
[2017-06-10] MEDS: Levofloxacin 750 MG/150 ML 750 MG/150 ML BAG IVPB SCH (08:09)
[2017-06-10] MEDS: Nicotine 21 MG PATCH.TD24 TD SCH (08:10)
[2017-06-10] MEDS: Psyllium 1 PACKET POWD.PACK PO SCH (08:10)
[2017-06-10] MEDS: Loratadine 10 MG TABLET PO SCH (08:11)
[2017-06-10] MEDS: Gabapentin 300 MG CAPSULE PO SCH (08:11)
[2017-06-10] MEDS: APIXABAN 5 MG TABLET PO SCH (08:11)
[2017-06-10] MEDS: Albuterol 2.5 MG/3 ML NEBULIZER IH SCH (08:12)
[2017-06-10] MEDS: Aspirin 81 MG TAB.CHEW PO SCH (08:12)
[2017-06-10] MEDS: hydroCHLOROthiazide 25 MG TABLET PO SCH (08:13)
[2017-06-10] MEDS: Budesonide/Formoterol 160/4.5 MDI IH SCH (08:13)
[2017-06-10] MEDS: *HR* OxyCODONE/APAP 10/325 TABLET PO PRN (08:13)
--- NOTE | 2017-06-10 08:59 | Discharge Summary ---
<Anh Monahan - Last Filed: 06/10/17 10:38> Date of Encounter: 06/10/17 Time of Encounter: 07:45 - Discharge Diagnosis (1) Sepsis Priority: Primary Status: Acute Qualifiers: Sepsis type: sepsis due to unspecified organism Qualified Code(s): A41.9 - Sepsis, unspecified organism (2) Acute and chronic respiratory failure Priority: Secondary Status: Acute Qualifiers: Respiratory failure complication: unspecified whether with hypoxia or hypercapnia Qualified Code(s): J96.20 - Acute and chronic respiratory failure , unspecified whether with hypoxia or hypercapnia (3) Diarrhea Priority: Secondary Status: Acute Qualifiers: Diarrhea type: presumed infectious Qualified Code(s): A09 - Infectious gastroenteritis and colitis, unspecified (4) Bulla of lung Priority: Secondary Status: Chronic (5) Afib Priority: Secondary Status: Chronic Qualifiers: Atrial fibrillation type: paroxysmal Qualified Code(s): I48.0 - Paroxysmal atrial fibrillation (6) NSTEMI (non-ST elevated myocardial infarction) Priority: Secondary Status: Acute (7) CAD (coronary artery disease) Priority: Secondary Status: Chronic Qualifiers: Coronary Disease-Associated Artery/Lesion type: [place] artery [place] vs. transplanted heart: [place] heart Associated angina: without angina Qualified Code(s): I25.10 - Atherosclerotic heart disease of [place] coronary artery without angina pectoris (8) COPD (chronic obstructive pulmonary disease) Priority: Secondary Status: Acute Qualifiers: COPD type: emphysema Emphysema type: unspecified Qualified Code(s): J43.9 - Emphysema, unspecified (9) HTN (hypertension) Priority: Secondary Status: Chronic Qualifiers: Hypertension type: essential hypertension Qualified Code(s): I10 - Essential (primary) hypertension (10) HLD (hyperlipidemia) Priority: Secondary Status: Chronic Qualifiers: Hyperlipidemia type: unspecified Qualified Code(s): E78.5 - Hyperlipidemia , unspecified (11) Tobacco abuse Priority: Secondary Status: Chronic - Discharge Medications Prescriptions: Clopidogrel [Plavix] 75 mg PO DAILY #30 tablet levoFLOXacin [Levofloxacin] 750 mg PO DAILY #1 tablet Metoprolol [Lopressor] 50 mg PO BID #120 tablet predniSONE [PredniSONE] See Taper PO DAILY #20 tablet Psyllium [Metamucil Fiber Singles Packet] 1 packet PO TID #21 powd.pack Sucralfate [Carafate] 1 gm PO TIDWM #21 udc Temazepam [Restoril] 15 mg PO HS PRN #7 capsule PRN Reason: Insomnia Home Medications: Albuterol Neb [Proventil Neb] 2.5 mg IH TID 02/19/17 [History] Albuterol Sulfate [Albuterol Inhaler] 2 puff IH Q6H PRN 02/19/17 [History] Alendronate Sodium [Fosamax] 70 mg PO WE 02/19/17 [History] Atorvastatin [Lipitor] 40 mg PO HS 02/19/17 [History] Budesonide/Formoterol 160/4.5 [Symbicort 160/4.5] 2 puff IH BIDR 02/19/17 [ History] Cetirizine HCl [All Day Allergy] 10 mg PO DAILY 02/19/17 [History] Gabapentin [Neurontin] 900 mg PO TID 02/19/17 [History] Melatonin 10 mg PO HS PRN 02/19/17 [History] Omeprazole [PriLOSEC] 20 mg PO DAILY 02/19/17 [History] Oxycodone HCl/Acetaminophen [Percocet 10-325 mg Tablet] 1 each PO 5XD PRN [History] Theophylline Anhydrous [Oliver-24] 200 mg PO DAILY 02/19/17 [History] Verapamil HCl [Verapamil ER] 180 mg PO DAILY 02/19/17 [History] Acetaminophen [Tylenol] 650 mg PO Q6HR PRN tablet 03/18/17 [Rx] Apixaban [Eliquis] 5 mg PO BID #60 tablet 03/18/17 [Rx] Aspirin 81 mg PO DAILY #30 tab.chew 03/18/17 [Rx] Nicotine Patch [Nicoderm] 21 mg TD DAILY #30 patch.td24 03/18/17 [Rx] hydroCHLOROthiazide [Hydrochlorothiazide] 12.5 mg PO DAILY 30 Days #30 tablet [Rx] Sertraline [Zoloft] 150 mg PO DAILY 06/06/17 [History] Clopidogrel [Plavix] 75 mg PO DAILY #30 tablet 06/10/17 [Rx] Metoprolol [Lopressor] 50 mg PO BID #120 tablet 06/10/17 [Rx] Psyllium [Metamucil Fiber Singles Packet] 1 packet PO TID #21 powd.pack [Rx] Sucralfate [Carafate] 1 gm PO TIDWM #21 udc 06/10/17 [Rx] Temazepam [Restoril] 15 mg PO HS PRN #7 capsule 06/10/17 [Rx] levoFLOXacin [Levofloxacin] 750 mg PO DAILY #1 tablet 06/10/17 [Rx] predniSONE [PredniSONE] See Taper PO DAILY #20 tablet 06/10/17 [Rx] Allergies/Adverse Reactions: 3 Allergy/AdvReac Type Severity Reaction Status Date / Time tiotropium Allergy Rash Verified 03/15/16 22:23 [From Spiriva with [employer]] bee stings AdvReac Anaphylaxis Uncoded 02/19/17 14:16 Procedures/tests Complete & Pending: Procedures Performed prior 72 hours Category Date Time Status CT chest wo con [CT] Routine Cat Scan 06/07/17 09:00 Completed Date of admission: 06/06/17 10:46 [facility] care physician: [facility] Consults: 06/06/17 11:26 Consult to Cardiac Rehabilitation-Phase1 [CONS] Routine Comment: Reason for Consult: CAD s/p PCI Call Completed: Yes 06/06/17 18:37 Consult to Pulmonology [CONS] Routine Consulting Provider: Pulm Crit Care [facility] Sleep Jadyn Reason for Consult: COPD, half-way steroid use Call Completed: Yes Discharging clinician: Anh Monahan Anticipated date of discharge: 06/10/17 - Patient Status Disposition: Home Health Service Condition: Good Functional capacity at discharge: independent ambulation Overall status at discharge: patient is progressing back to baseline - Discharge Instructions Instructions: Myocardial Infarction (DC), Atrial Fibrillation (DC), Chronic Obstructive Pulmonary Disease (DC), Pneumonia (DC) Follow Up With: [facility] [Primary Care Provider[facility] - 06/14/17 2:30 pm Additional Instructions: Please take prednisone taper using 10-mg tablets: 4 tablets daily x 2 days, then 3 tablets daily x 2 days, followed by 2 tablets daily x 2 days and finally 1 tablets (10 mg) daily. Please take one more day of prescribed levofloxacin 750 mg by mouth daily to finish 5-day course of antibiotic therapy. Please take prescribed Plavix 75 mg daily. Please note that your metoprolol (Lopressor) has been increased to 50 mg twice a day. You can use prescribed sucralfate for abdominal discomfort and psyllium as needed for your diarrhea. Please follow up with your primary care provider [facility] within a week regarding your hospitalization and the need of referral to cardiology/electrophysiology regarding your juanjose-tachy problem. - Diet and Activity Activity: increase activity as tolerated Diet: low fat, low cholesterol Hospital course: Mr. Bai is a 66 year-old male with PMH of A-fib, COPD on home steroid, CAD with CHENG to prox RCA, HLD, HTN who presented to [facility] ED with rapid heart rate and shortness of breath. Patient was noted to have A-fib RVR in the 160s to 180s and got Cardizem drip, amiodarone bolus and DC cardioversion in ED. Repeat ECG after DC cardioversion showed sinus tachycardia and ST elevations in V1 and V2 so patient was taken to cath lab technologist urgently for evaluate of known LAD lesion. LHC on 06/06/17 found 2-vessel CAD, LVEF 65% and a CHENG placed in the proximal LAD. FFR measurement: 0.81 of the LMCA. Patient was admitted on for sepsis likely secondary to suspected RADHA pneumonia as CXR showed worsened left upper lobe opacity and started on IV vancomycin, cefepime and levofloxacin. Patient's respiratory status significantly improves since admission. Cardiology thinks patient's A-fib RVR in ED is precipitated by missing metoprolol at home. Per cardiology, no other rate-control medication needed at this time but patient will need outpatient follow up with EP after discharge for the juanjose-tachy problem. Patient started to have watery diarrhea 5 -6 times a day starting 06/07/17 night and IV vancomycin and cefepime was discontinued for the concern of C. difficile. Stool test for C. difficile and GI infection panel are all negative. On 06/10/17, patient reports feeling much better and the stool is still loosen but becomes more formed. Given patient improves clinically and remains hemodynamically stable, patient can be discharge home with home health. Patient is instructed to take prednisone taper using 10-mg tablets: 4 tablets daily x 2 days, then 3 tablets daily x 2 days, followed by 2 tablets daily x 2 days and finally 1 tablets (10 mg) daily. Patient also needs to take one more day of prescribed levofloxacin 750 mg by mouth daily to finish 5-day course of antibiotic therapy. Patient will continue Plavix 75 mg daily and increase of metoprolol (Lopressor) to 50 mg twice a day. Patient can use prescribed sucralfate for abdominal discomfort and psyllium as needed for your diarrhea. Patient will need follow-up with his primary care provider [facility] within a week regarding your hospitalization and the need of referral to cardiology/electrophysiology regarding his juanjose-tachy problem. Patient expressed his understanding and agreement with the plan. All questions were answered. - Time Spent with Patient Total time spent providing and/or coordinating discharge services: Greater than 30 minutes (46 minutes) - Constitutional Vitals: Temp Pulse Resp BP Pulse Ox 99.2 F 89 18 117/72 92 06/10/17 07:34 06/10/17 07:41 06/10/17 08:16 06/10/17 07:34 06/10/17 08:16 General appearance: Present: mild distress, A&O X 3, answers questions appropriately - Head Head exam: Present: atraumatic, normocephalic - Eye Eye exam: Present: EOMI, conjuntiva pink, sclera anicteric - Neck Neck exam general surgery: Present: normal inspection, supple, trachea midline - Respiratory Respiratory exam: Present: wheezes (few). Absent: accessory muscle use, rales, rhonchi - Cardiovascular Cardiovascular exam: Present: RRR, +S1, +S2 - GI/Abdominal GI/Abdominal exam: Present: normal bowel sounds, soft, no peritoneal signs. Absent: distended, tenderness - Extremities Exam Extremities exam: Present: warm. Absent: cyanotic, pedal edema - Neurological Exam Neurological exam: Present: alert, oriented X3, no focal deficits. 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 Bai is a 66 year old male - Time Spent with Patient Total time spent providing and/or coordinating discharge services: - Constitutional Vitals: Temp Pulse Resp BP Pulse Ox 98.2 F 68 20 108/59 96 06/10/17 11:09 06/10/17 11:09 06/10/17 11:09 06/10/17 11:09 06/10/17 11:09 - Attending Attestation I conducted a face to face diagnostic evaluation of this patient and my medical decision-making was reviewed with the Resident Physician, Dr Anh Monahan. I agree with the documented findings, disposition and treatment plan as described except to the extent set forth below: Patient is in no acute distress. Heart is regular. Lungs are clear bilaterally. There is no lower extremity edema. I counseled the patient extensively regarding smoking cessation emphasizing the benefits of quitting smoking. The patient is medically stable for discharge home. Edy Bach MD
[2017-06-10] MEDS ORDERED: predniSONE 20 MG TABLET PO SCH (09:00)
[2017-06-10 11:13] VITALS: BP 108/59
== END 2017-06-10 12:18 | disposition home health service (06) | DRG 853 ==
LOC: EMEROO 06:41 → SUATTDRO 10:46 → 2NNU 10:46
PROVIDERS: ADMIT Internal Medicine; ATTEND Internal Medicine

== ENCOUNTER 2017-07-12 14:16 | Observation (INO) ==
[2017-07-12] MEDS ORDERED: 0.9 % Sodium Chloride 1,000 ML IVC ONE ×2 (14:28→15:05)
[2017-07-12] MEDS ORDERED: 0.9 % Sodium Chloride 1,000 ML ONE (14:30)
--- NOTE | 2017-07-12 14:39 | Emergency Department Note ---
START Narrative - START START: I examined this patient and my medical decision-making was reviewed with the Resident Physician. I agree with the documented findings, disposition and treatment plan as described except to the extent set forth below. 66 yo M presented to the ER for sob, rapid heart racing. hx of A fib requiring cardioversion despite cardizem, amiodarone. he was having some chest pressure. he's doing much better now after cardizem bolus and gtt and 2L of NS. wbc count is up from steroids. had this recent pneumonia that was treated. Patient is looking and feeling much better after the Cardizem and fluids. His heart rate now has dropped down to the 80s. His blood pressure is stabilized. He is on blood thinners all the time at home. We will admit to the hospitalist. His chest x-ray did not reveal any new findings as compared to previous. Total critical care time of 40 minutes spent in medically resuscitating as well as chemically cardioverting this patient back into normal sinus rhythm. See previous hospital course note below. from previous visit to hospital May 2017: Hospital course: Mr. Bai is a 66 year-old male with PMH of A-fib, COPD on home steroid, CAD with CHENG to prox RCA, HLD, HTN who presented to [facility] ED with rapid heart rate and shortness of breath. Patient was noted to have A-fib RVR in the 160s to 180s and got Cardizem drip, amiodarone bolus and DC cardioversion in ED. Repeat ECG after DC cardioversion showed sinus tachycardia and ST elevations in V1 and V2 so patient was taken to chemical laboratory scientist urgently for evaluate of known LAD lesion. LHC on 06/06/17 found 2-vessel CAD, LVEF 65% and a CHENG placed in the proximal LAD. FFR measurement: 0.81 of the LMCA. Patient was admitted on for sepsis likely secondary to suspected RADHA pneumonia as CXR showed worsened left upper lobe opacity and started on IV vancomycin, cefepime and levofloxacin. Patient's respiratory status significantly improves since admission. Cardiology thinks patient's A-fib RVR in ED is precipitated by missing metoprolol at home. Per cardiology, no other rate-control medication needed at this time but patient will need outpatient follow up with EP after discharge for the juanjose-tachy problem. Patient started to have watery diarrhea 5 -6 times a day starting 06/07/17 night and IV vancomycin and cefepime was discontinued for the concern of C. difficile. Stool test for C. difficile and GI infection panel are all negative. On 06/10/17, patient reports feeling much better and the stool is still loosen but becomes more formed. Given patient improves clinically and remains hemodynamically stable, patient can be discharge home with home health. Patient is instructed to take prednisone taper using 10-mg tablets: 4 tablets daily x 2 days, then 3 tablets daily x 2 days, followed by 2 tablets daily x 2 days and finally 1 tablets (10 mg) daily. Patient also needs to take one more day of prescribed levofloxacin 750 mg by mouth daily to finish 5-day course of antibiotic therapy. Patient will continue Plavix 75 mg daily and increase of metoprolol (Lopressor) to 50 mg twice a day. Patient can use prescribed sucralfate for abdominal discomfort and psyllium as needed for your diarrhea. Patient will need follow-up with his primary care provider [facility] within a week regarding your hospitalization and the need of referral to cardiology/electrophysiology regarding his juanjose-tachy problem.
[2017-07-12 14:44] LABS: Hematocrit 36.9 % (37.5-50.1); Hemoglobin 11.6 g/dL (12.9-16.9); Mean Corpuscular HGB Conc 31.4 g/dL (31.6-35.5); Mean Corpuscular Hemoglobin 26.1 pg (28.0-33.3); Mean Corpuscular Volume 82.9 fL (83.0-100.0); Mean Platelet Volume 9.1 fL (9.4-12.4); Platelet Count 428 K/mcL (140-400); Red Blood Count 4.45 M/mcL (4.19-5.50); Red Cell Distribution Width 16.2 % (11.5-14.5); Segmented Neutrophils % 76.1 %
[2017-07-12 14:45] LABS: Basophils # 0.1 K/mcL (0.0-0.2); Basophils % 0.2 %; Eosinophils # 0.2 K/mcL (0.0-0.6); Eosinophils % 0.7 %; Immature Granulocytes % 0.9 % (0-4); Lymphocytes % 13.9 %; Monocytes # 1.8 K/mcL (0.0-1.3); Monocytes % 8.2 %; Neutrophils # 16.2 K/mcL (1.6-8.9)
[2017-07-12 14:48] LABS: INR 1.3; Prothrombin Time 14.3 Seconds (9.4-12.1)
[2017-07-12 14:51] LABS: Activated Partial Thrombo Time 32.7 Seconds (26.0-36.0)
[2017-07-12] MEDS ORDERED: methylPREDNISolone 125 MG/2 ML VIAL IVP ONE (14:54)
[2017-07-12 14:57] LABS: Calcium 9.4 mg/dL (8.6-10.3); Carbon Dioxide 25 mEq/L (23-29); Chloride 102 mEq/L (98-107); Potassium 3.7 mEq/L (3.5-5.1); Sodium 135 mEq/L (136-145)
--- NOTE | 2017-07-12 15:00 | Emergency Department Note ---
Disposition Clinical Impression: Atrial fibrillation with RVR, COPD exacerbation Disposition: Admitted As Inpatient Condition: Fair SOB HPI - General Chief Complaint: ED Shortness of Breath/Dyspnea Stated Complaint: afib/LAILA Time Seen by Provider: 07/12/17 14:27 Source: patient, EMS Limitations: no limitations Nursing Notes Reviewed: Yes Vital Signs Reviewed: Yes - History of Present Illness Patient presents today for shortness of breath and "A. fib acting up". He should has been having shortness of breath chest pain and palpitations. Patient 's initial heart rate was A. fib RVR with a ventricular rate of 172. The patient is on L Santiago and aspirin, Lopressor for rate control, prednisone albuterol Symbicort and theophylline for COPD. He has other medications for pain as well as blood pressure. Patient states he started feeling bad yesterday. He is unable to take his medications do have that he was feeling. Symptoms have just gotten progressively worsened to the point that he had to return to the emergency department. Patient states chest pain is in the left lower chest near the epigastrium. Described as just a sharp pain. The patient is uncomfortable in bed and will undergo fluid bolus as well as Cardizem. Cardizem bolus will be given followed by drip. - Related Data Home Medications Medication Instructions Recorded Confirmed Albuterol Neb [Proventil Neb] 2.5 mg IH TID 02/19/17 07/12/17 Albuterol Sulfate [Albuterol 2 puff IH Q6H PRN 02/19/17 07/12/17 Inhaler] Alendronate Sodium [Fosamax] 70 mg PO WE 02/19/17 07/12/17 Atorvastatin [Lipitor] 40 mg PO HS 02/19/17 07/12/17 Budesonide/Formoterol 160/4.5 2 puff IH BIDR 02/19/17 07/12/17 [Symbicort 160/4.5] Cetirizine HCl [All Day Allergy] 10 mg PO DAILY 02/19/17 07/12/17 Gabapentin [Neurontin] 900 mg PO TID 02/19/17 07/12/17 Melatonin 10 mg PO HS PRN 02/19/17 07/12/17 Omeprazole [PriLOSEC] 20 mg PO DAILY 02/19/17 07/12/17 Oxycodone HCl/Acetaminophen 1 each PO 5XD PRN 02/19/17 07/12/17 [Percocet 10-325 mg Tablet] Theophylline Anhydrous [Oliver-24] 200 mg PO DAILY 02/19/17 07/12/17 Verapamil HCl [Verapamil ER] 180 mg PO DAILY 02/19/17 07/12/17 Sertraline [Zoloft] 150 mg PO DAILY 06/06/17 07/12/17 Diclofenac Sodium [Voltaren] 2 gm TP BID 07/12/17 07/12/17 Nicotine Polacrilex [Nicotine 2 mg BC Q2H PRN 07/12/17 07/12/17 Lozenge] hydroCHLOROthiazide 12.5 mg PO DAILY 07/12/17 07/12/17 [Hydrochlorothiazide] predniSONE [PredniSONE] 10 mg PO DAILY 07/12/17 07/12/17 Previous Rx's Medication Instructions Recorded Apixaban [Eliquis] 5 mg PO BID #60 tablet 03/18/17 Clopidogrel [Plavix] 75 mg PO DAILY #30 tablet 06/10/17 Metoprolol [Lopressor] 50 mg PO BID #120 tablet 06/10/17 Sucralfate [Carafate] 1 gm PO TIDWM #21 udc 06/10/17 Allergies Allergy/AdvReac Type Severity Reaction Status Date / Time tiotropium Allergy Rash Verified 03/15/16 22:23 [From Spiriva with HandiHaler] bee stings AdvReac Anaphylaxis Uncoded 02/19/17 14:16 Review of Systems: CONSTITUTIONAL: No weight loss, fever, chills, weakness or fatigue. HEENT: Eyes: No visual changes. Ears, Nose, Throat: No hearing loss, difficulty talking or unable to swallow. SKIN: No rash or itching. CARDIOVASCULAR: Chest pain RESPIRATORY: Shortness of breath GASTROINTESTINAL: Nausea; epigastric discomfort GENITOURINARY: No burning on urination or hematuria. NEUROLOGICAL: No headache, dizziness, syncope, paralysis, ataxia, numbness or tingling in the extremities. No change in bowel or bladder control. MUSCULOSKELETAL: No muscle pain, back pain, joint pain or stiffness. Past Medical History - Past Medical History Medical history: Reports: atrial fibrillation, COPD, fibromyalgia, GERD, hyperlipidemia, hypertension Surgical history: Reports: appendectomy, other Psychiatric history: Reports: anxiety, depression - Social History Smoking Status: Current every day smoker Smokeless Tobacco Status: No Alcohol use: Reports: none Drug use: Reports: none Physical Exam General: Patient with difficulty breathing as well as chest pain, patient uncomfortable in bed. Head: Normocephalic Atraumatic Eyes: PERRL, EOMI ENT: Airway patent, no stridor Neck: supple, no meningismus Chest: Diffuse wheezing Cardiac: Tachycardic Abdomen: soft, nontender, nondistended; no guarding, rebound, or tenderness to percussion Musculoskeletal: Calves symmetric, nontender, no palpable cord Skin: No rash, normal skin tone Neuro: Alert and Oriented to person, place, and time; No focal deficit - General Limitations: no limitations General appearance: alert, in distress Course - Reevaluation(s) Reevaluation #1: Patient initially responded really well with Cardizem bolus and fluids. Cardizem drip has been placed and it was increased to 15. Patient's heart rate is now 123. The patient's chest pain and epigastric pain have resolved. - Consultations Consultation #1: Discussed with hospitalist. Patient accepted for admission. Vital Signs Temperature 98.1 F 07/12/17 14:19 Pulse Rate 169 07/12/17 14:19 Respiratory Rate 12 07/12/17 14:19 Blood Pressure 92/73 07/12/17 14:19 O2 Sat by Pulse Oximetry 99 07/12/17 14:19 Temperature 98.7 F 07/12/17 23:32 Pulse Rate 60 07/12/17 23:32 Respiratory Rate 16 07/12/17 23:32 Blood Pressure 114/55 07/12/17 23:32 O2 Sat by Pulse Oximetry 99 07/12/17 23:32 Oxygen Delivery Oxygen Delivery Room Air Shortness of Breath/Dyspnea - Lab Data Result diagrams: 07/12/17 14:34 07/12/17 14:34 Lab Results 07/12/17 07/12/17 07/12/17 Range/Units 14:34 14:34 14:34 WBC 21.3 H (4.3-11.1) K/mcL RBC 4.45 (4.19-5.50) M/mcL Hgb 11.6 L (12.9-16.9) g/dL Hct 36.9 L (37.5-50.1) % MCV 82.9 L (83.0-100.0) fL MCH 26.1 L (28.0-33.3) pg MCHC 31.4 L (31.6-35.5) g/dL RDW 16.2 H (11.5-14.5) % Plt Count 428 H (140-400) K/mcL MPV 9.1 L (9.4-12.4) fL Immature Gran % 0.9 (0-4) % Seg Neutrophils % 76.1 % Lymphocytes % 13.9 % Monocytes % 8.2 % Eosinophils % 0.7 % Basophils % 0.2 % Neutrophils # 16.2 H (1.6-8.9) K/mcL Lymphocytes # 3.0 (0.6-4.6) K/mcL Monocytes # 1.8 H (0.0-1.3) K/mcL Eosinophils # 0.2 (0.0-0.6) K/mcL Basophils # 0.1 (0.0-0.2) K/mcL PT 14.3 H (9.4-12.1) Seconds INR 1.3 APTT 32.7 (26.0-36.0) Seconds Sodium 135 L (136-145) mEq/L Potassium 3.7 (3.5-5.1) mEq/L Chloride 102 (98-107) mEq/L Carbon Dioxide 25 (23-29) mEq/L BUN 20 (8-23) mg/dL Creatinine 0.87 (0.70-1.30) mg/dL Est GFR ( Amer) > 60 (> 60) Est GFR (Non-Af Amer) > 60 (> 60) BUN/Creatinine Ratio 23 (6-26) Glucose 101 (70-105) mg/dL Calculated Osmolality 283 (280-300) Calcium 9.4 (8.6-10.3) mg/dL Magnesium 1.9 (1.6-2.6) mg/dL Troponin I (< 0.04) ng/mL B-Natriuretic Peptide (Less than 100) pg/mL Chlamy pneumoniae PCR (Not Detect) Adenovirus (PCR) (Not Detect) B. pertussis DNA (PCR) (Not Detect) B.parapertussis DNA PCR (Not Detect) Coronavirus OC43 (PCR) (Not Detect) Coronavirus HKU1 (PCR) (Not Detect) Coronavirus 229E (PCR) (Not Detect) Coronavirus NL63 (PCR) (Not Detect) Human Metapneumovir PCR (Not Detect) Influenza A (H1) PCR (Not Detect) Influ A (H1N1/09) PCR (Not Detect) Influenza A (H3) PCR (Not Detect) Influenza A Untype (PCR) (Not Detect) Influenza Type B (PCR) (Not Detect) M.pneumoniae DNA (PCR) (Not Detect) Parainfluenza 1 (PCR) (Not Detect) Parainfluenza 2 (PCR) (Not Detect) Parainfluenza 3 (PCR) (Not Detect) Parainfluenza 4 (PCR) (Not Detect) RSV (PCR) (Not Detect) Entero/Rhino (PCR) (Not Detect) 07/12/17 07/12/17 07/12/17 Range/Units 14:34 14:34 18:09 WBC (4.3-11.1) K/mcL RBC (4.19-5.50) M/mcL Hgb (12.9-16.9) g/dL Hct (37.5-50.1) % MCV (83.0-100.0) fL MCH (28.0-33.3) pg MCHC (31.6-35.5) g/dL RDW (11.5-14.5) % Plt Count (140-400) K/mcL MPV (9.4-12.4) fL Immature Gran % (0-4) % Seg Neutrophils % % Lymphocytes % % Monocytes % % Eosinophils % % Basophils % % Neutrophils # (1.6-8.9) K/mcL Lymphocytes # (0.6-4.6) K/mcL Monocytes # (0.0-1.3) K/mcL Eosinophils # (0.0-0.6) K/mcL Basophils # (0.0-0.2) K/mcL PT (9.4-12.1) Seconds INR APTT (26.0-36.0) Seconds Sodium (136-145) mEq/L Potassium (3.5-5.1) mEq/L Chloride (98-107) mEq/L Carbon Dioxide (23-29) mEq/L BUN (8-23) mg/dL Creatinine (0.70-1.30) mg/dL Est GFR ( Amer) (> 60) Est GFR (Non-Af Amer) (> 60) BUN/Creatinine Ratio (6-26) Glucose (70-105) mg/dL Calculated Osmolality (280-300) Calcium (8.6-10.3) mg/dL Magnesium (1.6-2.6) mg/dL Troponin I 0.03 (< 0.04) ng/mL B-Natriuretic Peptide 147 H (Less than 100) pg/mL Chlamy pneumoniae PCR Not Detected (Not Detect) Adenovirus (PCR) Not Detected (Not Detect) B. pertussis DNA (PCR) Not Detected (Not Detect) B.parapertussis DNA PCR Not Detected (Not Detect) Coronavirus OC43 (PCR) Not Detected (Not Detect) Coronavirus HKU1 (PCR) Not Detected (Not Detect) Coronavirus 229E (PCR) Not Detected (Not Detect) Coronavirus NL63 (PCR) Not Detected (Not Detect) Human Metapneumovir PCR Not Detected (Not Detect) Influenza A (H1) PCR Not Detected (Not Detect) Influ A (H1N1/09) PCR Not Detected (Not Detect) Influenza A (H3) PCR Not Detected (Not Detect) Influenza A Untype (PCR) Not Detected (Not Detect) Influenza Type B (PCR) Not Detected (Not Detect) M.pneumoniae DNA (PCR) Not Detected (Not Detect) Parainfluenza 1 (PCR) Not Detected (Not Detect) Parainfluenza 2 (PCR) Not Detected (Not Detect) Parainfluenza 3 (PCR) Not Detected (Not Detect) Parainfluenza 4 (PCR) Not Detected (Not Detect) RSV (PCR) Not Detected (Not Detect) Entero/Rhino (PCR) Not Detected (Not Detect)
[2017-07-12 15:02] LABS: BUN/Creatinine Ratio 23 (6-26); Blood Urea Nitrogen 20 mg/dL (8-23); Glucose 101 mg/dL (70-105); Osmolality,Calculated 283 (280-300); eGFR For African Americans > 60 (> 60); eGFR For Non-African Americans > 60 (> 60)
[2017-07-12 15:49] LABS: Magnesium 1.9 mg/dL (1.6-2.6)
[2017-07-12] MEDS ORDERED: Melatonin 3 MG TABLET PO PRN (18:09)
[2017-07-12] MEDS ORDERED: NON-FORMULARY MEDICATION 1 EACH EACH (Alendronate Sodium [Fosamax] 70 MG) PO SCH (18:15)
[2017-07-12] MEDS ORDERED: Naloxone 0.4 MG/ML INJ IVP PRN (18:23)
--- NOTE | 2017-07-12 18:40 | Event Note ---
Date of Encounter: 07/12/17 Time of Encounter: 18:38 1. A. fib with rapid ventricular response likely secondary to acute COPD exacerbation due to acute bacterial bronchitis Continue Cardizem drip, Solu-Medrol, Xopenex, oxygen therapy, Rocephin Continue Eliquis 2. GERD, omeprazole 3. Hypertension, stable 4. Hyperlipidemia, stable 5. Chronic respiratory failure Omeprazole for GI prophylaxis and Eliquis for DVT prophylaxis. The patient will be admitted for observation. Full code. Time spent on this admission 40 minutes H&P will be completed by Wilman Lee NP
--- NOTE | 2017-07-12 18:48 | Internal Med History&Physical ---
<Wilman Lee J - Last Filed: 07/12/17 18:46> Date of Encounter: 07/12/17 Time of Encounter: 18:46 Assessment and Plan (1) Atrial fibrillation with RVR Current visit: Yes Status: Acute A-fib RVR, secondary to acute exacerbation of COPD due to acute bacterial bronchitis Continue Cardizem drip cold to titrate heart rate less than 100 and conversion normal sinus rhythm may discontinue Solu-Medrol, Xopenex and O2 therapy Rocephin CBC D and BMP in the morning (2) Acute exacerbation of chronic obstructive airways disease Current visit: Yes Status: Acute Acute exacerbation of COPD. 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 His chronic respiratory failure has had multiple admissions for acute exacerbation of COPD. Additionally, he has many lung problems including biapical giant bullae, bronchiectasis and COPD and emphysema. He reports he has had an increase and inhaler use due to increased shortness of breath and wheezing. Additionally, he has been reporting URI symptoms and chills as well as night sweats. There is some concern for fluids well. Initial rapid influenza negative. We will obtain respiratory infectious panel. -xopenex -Solumedrol -spo2 monitoring -O2 per nasal canula titrate to maintain spo2 greater than 92% (3) Chronic respiratory failure Current visit: Yes Status: Acute Qualifiers: Respiratory failure complication: hypoxia Qualified Code(s): J96.11 - Chronic respiratory failure with hypoxia (4) HLD (hyperlipidemia) Current visit: Yes Status: Chronic Continue statin Qualifiers: Hyperlipidemia type: unspecified Qualified Code(s): E78.5 - Hyperlipidemia , unspecified (5) HTN (hypertension) Current visit: Yes Status: Chronic h/o HTN. Stable, continue antihypertensives Qualifiers: Hypertension type: essential hypertension Qualified Code(s): I10 - Essential (primary) hypertension (6) DVT prophylaxis Current visit: Yes Status: [facility] Internal Medicine - H&P: HPI Chief complaint: SOB, URI SYMPTOMS, A-fib RVR Admitted From: Home Plans for Post Hospital Care: Home History of present illness: Mr. Bai is a 66 year old male Patient presents today for shortness of breath and "A. fib acting up". He should has been having shortness of breath chest pain and palpitations. Patient 's initial heart rate was A. fib RVR with a ventricular rate of 172. The patient is on L Santiago and aspirin, Lopressor for rate control, prednisone albuterol Symbicort and theophylline for COPD. He has other medications for pain as well as blood pressure. Patient states he started feeling bad yesterday. He is unable to take his medications do have that he was feeling. Symptoms have just gotten progressively worsened to the point that he had to return to the emergency department. Patient states chest pain is in the left lower chest near the epigastrium. Described as just a sharp pain. The patient is uncomfortable in bed and will undergo fluid bolus as well as Cardizem. Cardizem bolus will be given followed by drip. Past Med Surg Social Fam HX - Past Medical History Medical history: atrial fibrillation, COPD, fibromyalgia, GERD, hyperlipidemia, hypertension Psychiatric history: anxiety, depression - Past Surgical History Surgical History: appendectomy, other - Social History Smoking Status: Current every day smoker Packs per day: 1/2 Smokeless Tobacco Status: No Alcohol use: none Drug use: none - Family History Sister Family Member Ethnicity: Non- Living Status: Still Living Hx Family Cardiac Disorders: Yes (HD) Hx Family Respiratory Disorders: No Hx Family Cancer: Yes (Breast) Hx Family GI Disorders: No Hx Family Endocrine Disorder: No Hx Family Neuromuscular Disorders: No Hx Family Neurologic Disorders: No Hx Family HEENT Disorders: No Hx Family Autoimmune Disorders: No Brother Family Member Ethnicity: Non- Living Status: Still Living Mother Family Member Ethnicity: Non- Living Status: Father Family Member Ethnicity: Non- Living Status: Age at : 83 Cause of : bladder cancer Hx Family Cancer: Yes (Bladder) Internal Medicine - H&P: Meds Albuterol Neb [Proventil Neb] 2.5 mg IH TID 02/19/17 [History] Albuterol Sulfate [Albuterol Inhaler] 2 puff IH Q6H PRN 02/19/17 [History] Alendronate Sodium [Fosamax] 70 mg PO WE 02/19/17 [History] Atorvastatin [Lipitor] 40 mg PO HS 02/19/17 [History] Budesonide/Formoterol 160/4.5 [Symbicort 160/4.5] 2 puff IH BIDR 02/19/17 [ History] Cetirizine HCl [All Day Allergy] 10 mg PO DAILY 02/19/17 [History] Gabapentin [Neurontin] 900 mg PO TID 02/19/17 [History] Melatonin 10 mg PO HS PRN 02/19/17 [History] Omeprazole [PriLOSEC] 20 mg PO DAILY 02/19/17 [History] Oxycodone HCl/Acetaminophen [Percocet 10-325 mg Tablet] 1 each PO 5XD PRN [History] Theophylline Anhydrous [Oliver-24] 200 mg PO DAILY 02/19/17 [History] Verapamil HCl [Verapamil ER] 180 mg PO DAILY 02/19/17 [History] Apixaban [Eliquis] 5 mg PO BID #60 tablet 03/18/17 [Rx] Sertraline [Zoloft] 150 mg PO DAILY 06/06/17 [History] Clopidogrel [Plavix] 75 mg PO DAILY #30 tablet 06/10/17 [Rx] Metoprolol [Lopressor] 50 mg PO BID #120 tablet 06/10/17 [Rx] Sucralfate [Carafate] 1 gm PO TIDWM #21 udc 06/10/17 [Rx] Diclofenac Sodium [Voltaren] 2 gm TP BID 07/12/17 [History] Nicotine Polacrilex [Nicotine Lozenge] 2 mg BC Q2H PRN 07/12/17 [History] hydroCHLOROthiazide [Hydrochlorothiazide] 12.5 mg PO DAILY 07/12/17 [History] predniSONE [PredniSONE] 10 mg PO DAILY 07/12/17 [History] 3 Allergy/AdvReac Type Severity Reaction Status Date / Time tiotropium Allergy Rash Verified 03/15/16 22:23 [From Spiriva with HandiHaler] bee stings AdvReac Anaphylaxis Uncoded 02/19/17 14:16 All Systems PM: A 10-system review of systems was performed and is negative for pertinent findings except as documented above in the HPI. - Constitutional Constitutional: as per HPI - EENT Eyes: as per HPI Ears: as per HPI Nose, mouth and throat: as per HPI - Cardiovascular Cardiovascular ROS IM: as per HPI - Respiratory Respiratory: as per HPI - Gastrointestinal Gastrointestinal: no abdominal pain, no diarrhea, no hematemesis, no hematochezia, no melena, no nausea, no vomiting - Musculoskeletal Musculoskeletal ROS IM: no numbness, no tingling - Integumentary Integumentary IM: no rash, no unusual bruising - Neurological Neurological ROS: no confusion, no convulsions, no focal weakness, no numbness, no tingling, no tremor(s) - Hematologic/Lymphatic Hematologic/Lymphatic: no easy bruising - Constitutional Vitals: Temp Pulse Resp BP Pulse Ox 98.3 F 84 19 131/63 99 07/12/17 18:38 07/12/17 18:38 07/12/17 18:38 07/12/17 18:38 07/12/17 18:38 General appearance: Present: cooperative, mild distress, A&O X 3, answers questions appropriately - Head Head exam: Present: atraumatic, normocephalic - Eye Eye exam: Present: PERRL, conjuntiva pink, sclera anicteric Pupils: Present: PERRL - Neck Neck exam general surgery: Present: supple, trachea midline. Absent: lymphadenopathy - Respiratory Respiratory exam: Present: decreased breath sounds, prolonged expiratory phase, respiratory distress, wheezes (EXPIRATORY BL), tachypnea. Absent: accessory muscle use, chest wall tenderness, rales, rhonchi, stridor - Cardiovascular Cardiovascular exam: Present: RRR, +S1, +S2 - GI/Abdominal GI/Abdominal exam: Present: normal bowel sounds, soft, no peritoneal signs. Absent: distended, tenderness - Extremities Exam Extremities exam: Present: warm, radial pulses palpable and symmetrical. Absent : calf tenderness, cyanotic, pedal edema - Neurological Exam Neurological exam: Present: alert. Absent: facial droop, speech deficit - Skin Skin exam: Present: dry, intact Internal Med - H&P Results - Labs CBC & Chem 7: 07/12/17 14:34 07/12/17 14:34 - EKG Data -: EKG Interpreted by Myself Rate: tachycardia - EKG Data EKG comments: A-fib with RVR 07/12/17 18:49 - Impressions Impressions Chest X-Ray 07/12/17 14:28 IMPRESSION: 1. No acute process. 2. Unchanged exam with chronic changes in the upper lobes. D/ / Titi Oliveira MD / Titi Oliveira MD Interpreting Provider: Titi Oliveira MD <Patrick Alaniz H - Last Filed: 07/12/17 21:34> Date of Encounter: 07/12/17 Internal Medicine - H&P: HPI History of present illness: Mr. Bai is a 66 year old male All Systems PM: A 10-system review of systems was performed and is negative for pertinent findings except as documented above in the HPI. - Constitutional Vitals: Temp Pulse Resp BP Pulse Ox 98.3 F 84 19 131/63 99 07/12/17 18:38 07/12/17 18:38 07/12/17 18:38 07/12/17 18:38 07/12/17 18:38 Internal Med - H&P Results - Labs CBC & Chem 7: 07/12/17 14:34 07/12/17 14:34 Labs: Cardiac Enzymes 07/12/17 Range/Units 19:20 Troponin I < 0.03 (< 0.04) ng/mL - Attending Attestation 1. A. fib with rapid ventricular response likely secondary to acute COPD exacerbation due to acute bacterial bronchitis Continue Cardizem drip, Solu-Medrol, Xopenex, oxygen therapy, Rocephin Continue Eliquis 2. GERD, omeprazole 3. Hypertension, stable 4. Hyperlipidemia, stable 5. Chronic respiratory failure Omeprazole for GI prophylaxis and Eliquis for DVT prophylaxis. The patient will be admitted for observation. Full code. Time spent on this admission 40 minutes I have personally performed a face to face evaluation on this patient. I have reviewed and agree with the care plan. History and Exam by me shows:
[2017-07-12 19:18] LABS: Adenovirus Not Detected (Not Detect); Bordetella Pertussis Not Detected (Not Detect); Chlamydophila pneumoniae Not Detected (Not Detect); Coronavirus 229E Not Detected (Not Detect); Coronavirus HKU1 Not Detected (Not Detect); Coronavirus NL63 Not Detected (Not Detect); Coronavirus OC43 Not Detected (Not Detect); Human Metapneumovirus Not Detected (Not Detect); Human Rhinovirus/Enterovirus Not Detected (Not Detect); Influenza A Subtype 2009 H1 Not Detected (Not Detect); Influenza A Untypeable Not Detected (Not Detect); Influenza B Not Detected (Not Detect); Mycoplasma pneumoniae Not Detected (Not Detect); Parainfluenza Virus 1 Not Detected (Not Detect); Parainfluenza Virus 2 Not Detected (Not Detect); Parainfluenza Virus 3 Not Detected (Not Detect); Parainfluenza Virus 4 Not Detected (Not Detect); Respiratory Syncytial Virus Not Detected (Not Detect)
[2017-07-12] MEDS: cefTRIAXone 1,000 MG in Water for inj. (sterile) 10 ML IVP SCH (20:56)
[2017-07-12] MEDS: Nicotine 14 MG PATCH.TD24 TD SCH (22:35)
[2017-07-12] MEDS: Gabapentin 300 MG CAPSULE PO SCH (22:36)
[2017-07-12] MEDS: Apixaban 5 MG TABLET PO SCH (22:36)
[2017-07-12] MEDS: Verapamil ER (24 HR) 180 MG TABLET.ER PO SCH (22:36)
[2017-07-12] MEDS: Diclofenac Sodium [Voltaren] 2 GM TP SCH (22:47)
[2017-07-12] MEDS: Levalbuterol Neb 1.25 MG/3 ML IH SCH (22:50)
[2017-07-13] MEDS: MethylPREDNISolone 40 MG/ML VIAL IVP SCH ×5 (00:13→23:41)
[2017-07-13] MEDS: Levalbuterol Neb 1.25 MG/3 ML IH SCH ×4 (04:09→22:08)
[2017-07-13 05:01] LABS: Basophils % 0.2 %; Hemoglobin 11.1 g/dL (12.9-16.9); Immature Granulocytes % 0.7 % (0-4); Lymphocytes # 1.4 K/mcL (0.6-4.6); Lymphocytes % 12.1 %; Mean Corpuscular HGB Conc 31.7 g/dL (31.6-35.5); Mean Corpuscular Hemoglobin 26.2 pg (28.0-33.3); Mean Corpuscular Volume 82.5 fL (83.0-100.0); Mean Platelet Volume 9.3 fL (9.4-12.4); Monocytes # 0.1 K/mcL (0.0-1.3); Monocytes % 1.2 %; Neutrophils # 9.9 K/mcL (1.6-8.9); Platelet Count 387 K/mcL (140-400); Red Blood Count 4.24 M/mcL (4.19-5.50); Red Cell Distribution Width 16.1 % (11.5-14.5); Segmented Neutrophils % 85.8 %
[2017-07-13 05:44] LABS: BUN/Creatinine Ratio 33 (6-26); Blood Urea Nitrogen 20 mg/dL (8-23); Calcium 8.3 mg/dL (8.6-10.3); Carbon Dioxide 24 mEq/L (23-29); Chloride 108 mEq/L (98-107); Glucose 131 mg/dL (70-105); Osmolality,Calculated 288 (280-300); Potassium 4.2 mEq/L (3.5-5.1); Sodium 137 mEq/L (136-145); eGFR For African Americans > 60 (> 60); eGFR For Non-African Americans > 60 (> 60)
[2017-07-13] MEDS ORDERED: *HR* Heparin 5,000 UNIT/ML VIAL SQ SCH (06:00)
--- NOTE | 2017-07-13 08:55 | Internal Med Progress Note ---
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 Patient has multiple admission for COPD exacerbation. CT chest shows continued biapical giant bullae, bronchiectasis, and severe emphysema. -xopenex -continue required respiratory support -spo2 monitoring -O2 per nasal canula titrate to maintain spo2 between 88-92% - continue ceftriaxone (2) Atrial fibrillation with RVR Current Visit: Yes Status: Acute Assessment and plan: afib most likely secondary to acute exacerbation of COPD. received cardizem drip. currently cardizem is d/c due to sinus rhythm. see above (3) Chronic respiratory failure Current Visit: Yes Status: Acute Assessment and plan: chronic Qualifiers: Respiratory failure complication: hypoxia Qualified Code(s): J96.11 - Chronic respiratory failure with hypoxia (4) DVT prophylaxis Current Visit: Yes Status: Acute Assessment and plan: eliquis (5) HLD (hyperlipidemia) Current Visit: Yes Status: Chronic Assessment and plan: continue statin Qualifiers: Hyperlipidemia type: unspecified Qualified Code(s): E78.5 - Hyperlipidemia , unspecified (6) HTN (hypertension) Current Visit: Yes Status: Chronic Assessment and plan: currently stable, continue home HTN meds Qualifiers: Hypertension type: essential hypertension Qualified Code(s): I10 - Essential (primary) hypertension (7) Abdominal pain Current Visit: No Status: Acute Assessment and plan: reported abd pain this AM. most likely due to not receiving opioids since yesterday AM. - restarted percocet 10. - started pepto. - increased omeprazole to 40qd. - hold carbonated or caffeinated beverages. - if progresses, will consider EGD. Qualifiers: Abdominal location: epigastric Qualified Code(s): R10.13 - Epigastric pain - Subjective Interval history: Mr Bai is 66 yo M w/ hx of afib, copd, fibromyalgia, GERD, hld, htn presented to ED SOB and palpitations presented with SOB, and afib. No events overnight, no new complaints. Patient denies chest fluttering, chest pain, numbness/tingling, nausea/vomiting - Constitutional Vitals: Temp Pulse Resp BP Pulse Ox 98.1 F 64 16 129/62 100 07/13/17 07:04 07/13/17 07:04 07/13/17 07:04 07/13/17 07:04 07/13/17 07:04 General appearance: Present: cooperative, mild distress, A&O X 3, answers questions appropriately - Respiratory Respiratory exam: Present: prolonged expiratory phase, wheezes, tachypnea. Absent: accessory muscle use, chest wall tenderness, rales, respiratory distress , rhonchi, stridor - Cardiovascular Cardiovascular exam: Present: RRR, +S1, +S2. Absent: diastolic murmur, gallop, rubs, systolic murmur - GI/Abdominal GI/Abdominal exam: Present: normal bowel sounds, soft, no peritoneal signs. Absent: distended, tenderness - Extremities Exam Extremities exam: Present: warm, radial pulses palpable and symmetrical. Absent : calf tenderness, cyanotic, pedal edema - Psychiatric Psychiatric exam: Present: normal affect, normal mood Internal Medicine: Result - Labs CBC & Chem 7: 07/13/17 04:20 07/13/17 04:20 Labs: Short CBC 07/13/17 Range/Units 04:20 WBC 11.6 H (4.3-11.1) K/mcL Hgb 11.1 L (12.9-16.9) g/dL Hct 35.0 L (37.5-50.1) % Plt Count 387 (140-400) K/mcL Neutrophils # 9.9 H (1.6-8.9) K/mcL BMP 07/13/17 04:20 Sodium 137 Potassium 4.2 Chloride 108 H Carbon Dioxide 24 BUN 20 Creatinine 0.61 L Glucose 131 H Calcium 8.3 L Cardiac Enzymes 07/12/17 Range/Units 19:20 Troponin I < 0.03 (< 0.04) ng/mL - ABG Interpretation ABG results: PT/INR, D-dimer PT 14.3 Seconds (9.4-12.1) H 07/12/17 14:34 Consult Discharge Plan - Plan [facility] Provider[facility] - <Bo Tellez - Last Filed: 07/13/17 19:25> Date of Encounter: 07/13/17 - Assessment and plan (1) Acute exacerbation of chronic obstructive airways disease Current Visit: Yes Status: Acute (2) Chronic respiratory failure Current Visit: Yes Status: Acute Qualifiers: Respiratory failure complication: hypoxia Qualified Code(s): J96.11 - Chronic respiratory failure with hypoxia (3) HLD (hyperlipidemia) Current Visit: Yes Status: Chronic Qualifiers: Hyperlipidemia type: mixed hyperlipidemia Qualified Code(s): E78.2 - Mixed hyperlipidemia (4) HTN (hypertension) Current Visit: Yes Status: Chronic Qualifiers: Hypertension type: essential hypertension Qualified Code(s): I10 - Essential (primary) hypertension (5) Afib Current Visit: No Status: Chronic Qualifiers: Atrial fibrillation type: paroxysmal Qualified Code(s): I48.0 - Paroxysmal atrial fibrillation (6) Tobacco abuse Current Visit: Yes Status: Chronic - Constitutional Vitals: Temp Pulse Resp BP Pulse Ox 97.9 F 82 15 152/80 94 07/13/17 16:00 07/13/17 16:00 07/13/17 16:00 07/13/17 16:00 07/13/17 16:00 Internal Medicine: Result - Labs CBC & Chem 7: 07/13/17 04:20 07/13/17 04:20 Labs: Short CBC 07/13/17 Range/Units 04:20 WBC 11.6 H (4.3-11.1) K/mcL Hgb 11.1 L (12.9-16.9) g/dL Hct 35.0 L (37.5-50.1) % Plt Count 387 (140-400) K/mcL Neutrophils # 9.9 H (1.6-8.9) K/mcL BMP 07/13/17 04:20 Sodium 137 Potassium 4.2 Chloride 108 H Carbon Dioxide 24 BUN 20 Creatinine 0.61 L Glucose 131 H Calcium 8.3 L Cardiac Enzymes 07/12/17 Range/Units 19:20 Troponin I < 0.03 (< 0.04) ng/mL - ABG Interpretation ABG results: PT/INR, D-dimer PT 14.3 Seconds (9.4-12.1) H 07/12/17 14:34 - Attending Attestation I examined this patient and my medical decision-making was reviewed with the Resident Physician on 07/13/17. I agree with the documented findings, disposition and treatment plan as described except to the extent set forth below. Mr Bai has been admitted for acute exac COPD and parox a fib. He remains moderate to high risk due to potential for worsening clinical status. Mr Jacques feels OK at this time. Breathing is somewhat better. In sinus rhythm now. No fever. Exam Alert. Comfortable Mucus membranes dry Heart reg Wheeze present No edema I/P 1. Exac COPD 2. Parox a fib Further diagnoses and plan as above
[2017-07-13] MEDS: Loratadine 10 MG TABLET PO SCH (08:58)
[2017-07-13] MEDS: hydroCHLOROthiazide 25 MG TABLET PO SCH (08:59)
[2017-07-13] MEDS ORDERED: predniSONE 10 MG TABLET PO SCH (09:00)
[2017-07-13] MEDS ORDERED: VERAPAMIL HCL 180 MG PO SCH (09:00)
[2017-07-13] MEDS: Apixaban 5 MG TABLET PO SCH ×2 (09:00→21:03)
[2017-07-13] MEDS: Gabapentin 300 MG CAPSULE PO SCH ×3 (09:01→21:03)
[2017-07-13] MEDS: Nicotine 14 MG PATCH.TD24 TD SCH (09:02)
[2017-07-13] MEDS: Diclofenac Sodium [Voltaren] 2 GM TP SCH (09:06)
[2017-07-13] MEDS ORDERED: Bismuth Subsalicylate 120 ML ORAL SUSPENSION PO PRN (10:09)
[2017-07-13] MEDS: *HR* OxyCODONE/APAP 10/325 TABLET PO PRN ×2 (10:29→21:08)
--- NOTE | 2017-07-13 16:20 | Electrocardiograph Report ---
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
--- NOTE | 2017-07-13 16:22 | Electrocardiograph Report ---
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
[2017-07-13] MEDS: Mag Hydrox/Al Hydrox/Simeth 30 ML UDC PO SCH ×2 (18:36→21:03)
[2017-07-13] MEDS: cefTRIAXone 1,000 MG in Water for inj. (sterile) 10 ML IVP SCH (18:36)
[2017-07-13] MEDS: Verapamil ER (24 HR) 180 MG TABLET.ER PO SCH (18:37)
[2017-07-13] MEDS ORDERED: Temazepam 15 MG CAPSULE PO PRN (18:44)
[2017-07-14] MEDS: Levalbuterol Neb 1.25 MG/3 ML IH SCH ×2 (03:40→10:36)
[2017-07-14 04:23] LABS: Mean Platelet Volume 9.2 fL (9.4-12.4)
[2017-07-14 04:24] LABS: Hematocrit 31.2 % (37.5-50.1); Hemoglobin 9.7 g/dL (12.9-16.9); Mean Corpuscular HGB Conc 31.1 g/dL (31.6-35.5); Mean Corpuscular Hemoglobin 25.9 pg (28.0-33.3); Mean Corpuscular Volume 83.4 fL (83.0-100.0); Platelet Count 392 K/mcL (140-400); Red Blood Count 3.74 M/mcL (4.19-5.50); Red Cell Distribution Width 16.2 % (11.5-14.5)
[2017-07-14 04:48] LABS: BUN/Creatinine Ratio 30 (6-26); Blood Urea Nitrogen 26 mg/dL (8-23); Calcium 8.3 mg/dL (8.6-10.3); Carbon Dioxide 26 mEq/L (23-29); Chloride 106 mEq/L (98-107); Glucose 162 mg/dL (70-105); Osmolality,Calculated 290 (280-300); Potassium 3.8 mEq/L (3.5-5.1); Sodium 136 mEq/L (136-145); eGFR For African Americans > 60 (> 60); eGFR For Non-African Americans > 60 (> 60)
[2017-07-14] MEDS: MethylPREDNISolone 40 MG/ML VIAL IVP SCH ×2 (06:24→11:49)
[2017-07-14] MEDS: Mag Hydrox/Al Hydrox/Simeth 30 ML UDC PO SCH ×2 (08:46→11:49)
[2017-07-14] MEDS: Gabapentin 300 MG CAPSULE PO SCH ×2 (08:47→15:53)
[2017-07-14] MEDS: Apixaban 5 MG TABLET PO SCH (08:48)
[2017-07-14] MEDS: hydroCHLOROthiazide 25 MG TABLET PO SCH (08:48)
[2017-07-14] MEDS: *HR* OxyCODONE/APAP 10/325 TABLET PO PRN (08:48)
[2017-07-14] MEDS: Loratadine 10 MG TABLET PO SCH (08:48)
[2017-07-14] MEDS: Nicotine 14 MG PATCH.TD24 TD SCH (08:49)
[2017-07-14] MEDS ORDERED: Megestrol Acetate 400 MG/10 ML UDC PO SCH (09:00)
[2017-07-14 09:21] LABS: Basophils % 0.1 %; Hematocrit 37.1 % (37.5-50.1); Immature Granulocytes % 0.9 % (0-4); Lymphocytes % 4.3 %; Mean Corpuscular HGB Conc 29.6 g/dL (31.6-35.5); Mean Corpuscular Volume 87.7 fL (83.0-100.0); Monocytes # 0.5 K/mcL (0.0-1.3); Monocytes % 2.2 %; Platelet Count 352 K/mcL (140-400); Red Blood Count 4.23 M/mcL (4.19-5.50); Red Cell Distribution Width 16.4 % (11.5-14.5); Segmented Neutrophils % 92.5 %
[2017-07-14 09:57] LABS: Platelet Estimate Normal (Normal); Target Cells 1+ (Not Present)
--- NOTE | 2017-07-14 11:41 | Discharge Summary ---
<Singh Man - Last Filed: 07/14/17 15:07> Date of Encounter: 07/14/17 Time of Encounter: 11:35 - Discharge Diagnosis (1) Acute exacerbation of chronic obstructive airways disease Priority: Primary Status: Acute (2) Atrial fibrillation with RVR Priority: Secondary Status: Acute (3) Chronic respiratory failure Priority: Secondary Status: Acute Qualifiers: Respiratory failure complication: hypoxia Qualified Code(s): J96.11 - Chronic respiratory failure with hypoxia (4) DVT prophylaxis Priority: Secondary Status: Acute (5) HLD (hyperlipidemia) Priority: Secondary Status: Chronic Qualifiers: Hyperlipidemia type: mixed hyperlipidemia Qualified Code(s): E78.2 - Mixed hyperlipidemia (6) HTN (hypertension) Priority: Secondary Status: Chronic Qualifiers: Hypertension type: essential hypertension Qualified Code(s): I10 - Essential (primary) hypertension (7) Abdominal pain Priority: Secondary Status: Acute Qualifiers: Abdominal location: epigastric Qualified Code(s): R10.13 - Epigastric pain - Discharge Medications Prescriptions: Levofloxacin [Levaquin] 500 mg PO DAILY 5 Days #5 tablet Megestrol Acetate [Megace] 40 mg PO DAILY 30 Days #30 tablet predniSONE [PredniSONE] 40 mg PO DAILY #6 tablet Home Medications: Albuterol Neb [Proventil Neb] 2.5 mg IH TID 02/19/17 [History] Albuterol Sulfate [Albuterol Inhaler] 2 puff IH Q6H PRN 02/19/17 [History] Alendronate Sodium [Fosamax] 70 mg PO WE 02/19/17 [History] Atorvastatin [Lipitor] 40 mg PO HS 02/19/17 [History] Budesonide/Formoterol 160/4.5 [Symbicort 160/4.5] 2 puff IH BIDR 02/19/17 [ History] Cetirizine HCl [All Day Allergy] 10 mg PO DAILY 02/19/17 [History] Gabapentin [Neurontin] 900 mg PO TID 02/19/17 [History] Melatonin 10 mg PO HS PRN 02/19/17 [History] Omeprazole [PriLOSEC] 20 mg PO DAILY 02/19/17 [History] Oxycodone HCl/Acetaminophen [Percocet 10-325 mg Tablet] 1 each PO 5XD PRN [History] Theophylline Anhydrous [Oliver-24] 200 mg PO DAILY 02/19/17 [History] Verapamil HCl [Verapamil ER] 180 mg PO DAILY 02/19/17 [History] Apixaban [Eliquis] 5 mg PO BID #60 tablet 03/18/17 [Rx] Sertraline [Zoloft] 150 mg PO DAILY 06/06/17 [History] Clopidogrel [Plavix] 75 mg PO DAILY #30 tablet 06/10/17 [Rx] Metoprolol [Lopressor] 50 mg PO BID #120 tablet 06/10/17 [Rx] Sucralfate [Carafate] 1 gm PO TIDWM #21 udc 06/10/17 [Rx] Diclofenac Sodium [Voltaren] 2 gm TP BID 07/12/17 [History] Nicotine Polacrilex [Nicotine Lozenge] 2 mg BC Q2H PRN 07/12/17 [History] hydroCHLOROthiazide [Hydrochlorothiazide] 12.5 mg PO DAILY 07/12/17 [History] predniSONE [PredniSONE] 10 mg PO DAILY 07/12/17 [History] Levofloxacin [Levaquin] 500 mg PO DAILY 5 Days #5 tablet 07/14/17 [Rx] Megestrol Acetate [Megace] 40 mg PO DAILY 30 Days #30 tablet 07/14/17 [Rx] predniSONE [PredniSONE] 40 mg PO DAILY #6 tablet 07/14/17 [Rx] Allergies/Adverse Reactions: 3 Allergy/AdvReac Type Severity Reaction Status Date / Time tiotropium Allergy Rash Verified 03/15/16 22:23 [From Spiriva with HandiHaler] bee stings AdvReac Anaphylaxis Uncoded 02/19/17 14:16 Procedures/tests Complete & Pending: Procedures Performed prior 72 hours Category Date Time Status ECG 12 lead ECG [ECG] Routine Y 07/12/17 15:35 Completed Date of admission: 07/12/17 18:23 [facility] care physician: [facility] Consults: 07/12/17 18:43 Consult to Nutrition [CONS] Routine Comment: Consulting Provider: NUTRITION Reason for Dietary Consult: MST Score Consult to Costuming Supervisor [CONS] Routine Reason for SW Consult: meals on wheels, possible HH set up - Patient Status Disposition: Home Health Service Condition: Good Functional capacity at discharge: independent ambulation Overall status at discharge: patient is progressing back to baseline - Discharge Instructions Instructions: Prednisone (By mouth), Levofloxacin (By mouth), Atrial Fibrillation (DC), How to Stop Smoking (DC), Chronic Obstructive Pulmonary Disease (DC), Chronic Hypertension (DC) Follow Up With: Tano Das DO [Partnered Physician] - 07/20/17 9:30 am [facility] [Primary Care Provider[facility] - Additional Instructions: Patient to hold home dose of prednisone, and take the taper dose of 40 mg prednisone for 5 days, then continue on his home dose. Patient to finish course of levaquin for 5 days. - Diet and Activity Activity: increase activity as tolerated Diet: low salt diet Interval History: Mr Bai is a 66 yo M w/ pmh of afib, copd, fibromyalgia, GERD,HLD, HTN presented to Ed on the 07/12/17 with SOB and palpitations. On admission patient was found to be in Afib w/ RVR which was believed to be from his exacerbation of COPD. He was started on cardizem drip. EKG confirmed his afib. For his COPD exacerbation, he received supportive care including solumederol and ceftriaxone. CXR saw no acute process. By his first morning, his symptoms had resolved, and he was hemodynamically stable. Patient is discharged on day 3 of admission with a taper dose of steroids and levaquin for 5 days. To have follow up with PCP within 1 week. Hospital course: Mr. Bai is a 66 year old male Time spent discussing smoking cessation with patient: more than 10 minutes - Time Spent with Patient Total time spent providing and/or coordinating discharge services: Greater than 30 minutes - Constitutional Vitals: Temp Pulse Resp BP Pulse Ox 98.8 F 70 16 136/76 98 07/14/17 04:19 07/14/17 04:19 07/14/17 10:36 07/14/17 04:19 07/14/17 10:36 General appearance: Present: cooperative, mild distress, A&O X 3, answers questions appropriately - Respiratory Respiratory exam: Present: prolonged expiratory phase, wheezes. Absent: accessory muscle use, chest wall tenderness, decreased breath sounds, CTAB, rales, respiratory distress, rhonchi, stridor, tachypnea - Cardiovascular Cardiovascular exam: Present: RRR, +S1, +S2. Absent: diastolic murmur, gallop, rubs, systolic murmur - GI/Abdominal GI/Abdominal exam: Present: normal bowel sounds, soft, no peritoneal signs. Absent: distended, tenderness - Extremities Exam Extremities exam: Present: warm, radial pulses palpable and symmetrical. Absent : calf tenderness, cyanotic, pedal edema - Psychiatric Psychiatric exam: Present: normal affect, normal mood <Bo Tellez - Last Filed: 07/14/17 17:00> Date of Encounter: 07/14/17 - Discharge Diagnosis (1) Chronic respiratory failure Priority: Primary Status: Resolved Qualifiers: Respiratory failure complication: hypoxia Qualified Code(s): J96.11 - Chronic respiratory failure with hypoxia (2) Acute exacerbation of chronic obstructive airways disease Status: Resolved (3) HLD (hyperlipidemia) Status: Chronic Qualifiers: Hyperlipidemia type: mixed hyperlipidemia Qualified Code(s): E78.2 - Mixed hyperlipidemia (4) HTN (hypertension) Status: Chronic Qualifiers: Hypertension type: essential hypertension Qualified Code(s): I10 - Essential (primary) hypertension (5) Afib Priority: Secondary Status: Chronic Qualifiers: Atrial fibrillation type: paroxysmal Qualified Code(s): I48.0 - Paroxysmal atrial fibrillation (6) Tobacco abuse Priority: Secondary Status: Chronic Procedures/tests Complete & Pending: Procedures Performed prior 72 hours Category Date Time Status ECG 12 lead ECG [ECG] Routine Y 07/12/17 15:35 Completed Date of admission: 07/12/17 17:25 [facility] care physician: [facility] Consults: 07/12/17 18:43 Consult to Nutrition [CONS] Routine Comment: Consulting Provider: NUTRITION Reason for Dietary Consult: MST Score Consult to Costuming Supervisor [CONS] Routine Reason for SW Consult: meals on wheels, possible HH set up Hospital course: Mr. Bai is a 66 year old male - Time Spent with Patient Total time spent providing and/or coordinating discharge services: 39min - Constitutional Vitals: Temp Pulse Resp BP Pulse Ox 98.2 F 73 16 144/59 95 07/14/17 16:03 07/14/17 16:03 07/14/17 16:03 07/14/17 16:03 07/14/17 16:03 - Attending Attestation I examined this patient and my medical decision-making was reviewed with the Resident Physician on 1/26/18. I agree with the documented findings, disposition and treatment plan as described except to the extent set forth below. Mr Georgie has been admitted for acute exac COPD and parox a fib. Today he feels well and feels he is at baseline. He is afebrile with stable vitals. His WBC has elevated and he says this happens when he is on steroids. Recheck of labs reveals slight improvement in WBC with predomiant mature neutrophils. He feels ready for discharge home with outpatient follow up. Exam alert. Comfortable Mucus membranes moist Heart reg Lungs diminished and clear Abd soft Plan D/C to home Follow WBC as outpatient Complete abx and steroids Follow with cardiology as arranged.
--- NOTE | 2017-07-14 15:06 | Physician Discharge Referral ---
Home Health/Hosp Referral Info Transfer to: Home Health Provider in Charge Post Discharge: PCP - Diagnosis (1) Acute exacerbation of chronic obstructive airways disease Priority: Primary Status: Acute (2) Atrial fibrillation with RVR Priority: Secondary Status: Acute (3) Chronic respiratory failure Priority: Secondary Status: Acute (4) DVT prophylaxis Priority: Secondary Status: Acute (5) HLD (hyperlipidemia) Priority: Secondary Status: Chronic (6) HTN (hypertension) Priority: Secondary Status: Chronic (7) Abdominal pain Priority: Secondary Status: Acute - Respiratory Orders Smoking Cessation: Smoking cessation has been advised. For more information, call the [place] Tobacco Quit Line at 4-896-SLHB-NOW. - Diet/Nutrition Diet/Nutrition Orders: Cardiac - Activity Activity Orders: Up ad regan - Services Needed Following services are medically necessary services: Nursing, Home Health Aide, Physical Therapy, Occupational Therapy - Transfer Medications Prescriptions: Levofloxacin [Levaquin] 500 mg PO DAILY 5 Days #5 tablet predniSONE [PredniSONE] 40 mg PO DAILY 3 Days #3 tablet Home Medications: Albuterol Neb [Proventil Neb] 2.5 mg IH TID 02/19/17 [History] Albuterol Sulfate [Albuterol Inhaler] 2 puff IH Q6H PRN 02/19/17 [History] Alendronate Sodium [Fosamax] 70 mg PO WE 02/19/17 [History] Atorvastatin [Lipitor] 40 mg PO HS 02/19/17 [History] Budesonide/Formoterol 160/4.5 [Symbicort 160/4.5] 2 puff IH BIDR 02/19/17 [ History] Cetirizine HCl [All Day Allergy] 10 mg PO DAILY 02/19/17 [History] Gabapentin [Neurontin] 900 mg PO TID 02/19/17 [History] Melatonin 10 mg PO HS PRN 02/19/17 [History] Omeprazole [PriLOSEC] 20 mg PO DAILY 02/19/17 [History] Oxycodone HCl/Acetaminophen [Percocet 10-325 mg Tablet] 1 each PO 5XD PRN [History] Theophylline Anhydrous [Oliver-24] 200 mg PO DAILY 02/19/17 [History] Verapamil HCl [Verapamil ER] 180 mg PO DAILY 02/19/17 [History] Apixaban [Eliquis] 5 mg PO BID #60 tablet 03/18/17 [Rx] Sertraline [Zoloft] 150 mg PO DAILY 06/06/17 [History] Clopidogrel [Plavix] 75 mg PO DAILY #30 tablet 06/10/17 [Rx] Metoprolol [Lopressor] 50 mg PO BID #120 tablet 06/10/17 [Rx] Sucralfate [Carafate] 1 gm PO TIDWM #21 udc 06/10/17 [Rx] Diclofenac Sodium [Voltaren] 2 gm TP BID 07/12/17 [History] Nicotine Polacrilex [Nicotine Lozenge] 2 mg BC Q2H PRN 07/12/17 [History] hydroCHLOROthiazide [Hydrochlorothiazide] 12.5 mg PO DAILY 07/12/17 [History] predniSONE [PredniSONE] 10 mg PO DAILY 07/12/17 [History] Levofloxacin [Levaquin] 500 mg PO DAILY 5 Days #5 tablet 07/14/17 [Rx] predniSONE [PredniSONE] 40 mg PO DAILY 3 Days #3 tablet 07/14/17 [Rx] Allergies/Adverse Reactions: 3 Allergy/AdvReac Type Severity Reaction Status Date / Time tiotropium Allergy Rash Verified 03/15/16 22:23 [From Spiriva with HandiHaler] bee stings AdvReac Anaphylaxis Uncoded 02/19/17 14:16 Certification: Further, I certify that my clinical findings support that this patient is homebound (i.e. absences from home require considerable and taxing effort and are for medical reasons or synagogue services or infrequently or short duration when for other reasons) because: Homebound Reason: Severity of cardiac or pulmonary status limits activity tolerance Attestation: My signature below is to certify that this patient is under my care and that I, or nurse practitioner, or a physician's events administrative assistant working with me, has a face-to -face encounter with this patient.
[2017-07-14 16:20] VITALS: BP 142/72
== END 2017-07-14 16:44 | disposition home health service (06) ==
LOC: EMEROO 14:16 → 2NENU 14:16
PROVIDERS: ADMIT Internal Medicine; ATTEND Internal Medicine

== ENCOUNTER 2017-07-22 11:16 | Observation (INO) ==
[2017-07-22] MEDS ORDERED: methylPREDNISolone 125 MG/2 ML VIAL IVP ONE (11:25)
[2017-07-22] MEDS ORDERED: Ipratropium/Albuterol Neb 3 ML IH ONE (11:25)
--- NOTE | 2017-07-22 11:33 | Emergency Department Note ---
Disposition Clinical Impression: Acute exacerbation of chronic obstructive airways disease Congestive heart failure Qualifiers: Congestive heart failure type: unspecified Congestive heart failure chronicity : unspecified Qualified Code(s): I50.9 - Heart failure, unspecified Disposition: Admitted As Inpatient Condition: Fair SOB HPI - General Chief Complaint: ED Shortness of Breath/Dyspnea Stated Complaint: ed dyspnea Time Seen by Provider: 07/22/17 11:18 Nursing Notes Reviewed: Yes Vital Signs Reviewed: Yes - History of Present Illness Mr. Bai, a 66 yo male, presents from home via EMS for evaluation of dyspnea. Onset last night and progressive. Patient notes he was recently discharged from this facility for the same thing. His notes he has a history of going into A. fib with exacerbations of his COPD. Patient notes he has had chills as well as chest pain with deep inspiration and with cough located in the midsternal line; this is nonradiating and not associated with unusual back pains, nausea, or diaphoresis. His cough is nonproductive. Per EMS: Patient was tripoding and to Make to a respiratory rate of 27 on arrival. They say he was A. fib RVR. His breathing improved with albuterol Atrovent nebs in route. PMH: Paroxysmal A. fib with RVR, emphysema, COPD dependent on 2 L oxygen at night, hypertension, hyperlipidemia, protein calorie malnutrition, CAD with stent 2 Habits: Current every day [id number] per day; [id number]-[id number] history smoking Antiplatelet: aspirin, plavix Anticoagulant: eliquis Rate control: lopressor ROS: Positive: As above Negative: Headache, fever, palpitations, unusual back pains, diaphoresis, abdominal pain, lightheadedness or vertigo, changes in bowel or bladder - Related Data Home Medications Medication Instructions Recorded Confirmed Albuterol Neb [Proventil Neb] 2.5 mg IH TID 02/19/17 07/22/17 Albuterol Sulfate [Albuterol 2 puff IH Q6H PRN 02/19/17 07/22/17 Inhaler] Alendronate Sodium [Fosamax] 70 mg PO WE 02/19/17 07/22/17 Atorvastatin [Lipitor] 40 mg PO HS 02/19/17 07/22/17 Budesonide/Formoterol 160/4.5 2 puff IH BIDR 02/19/17 07/22/17 [Symbicort 160/4.5] Cetirizine HCl [All Day Allergy] 10 mg PO DAILY 02/19/17 07/22/17 Gabapentin [Neurontin] 900 mg PO TID 02/19/17 07/22/17 Melatonin 10 mg PO HS PRN 02/19/17 07/22/17 Omeprazole [PriLOSEC] 20 mg PO DAILY 02/19/17 07/22/17 Oxycodone HCl/Acetaminophen 1 tab PO 5XD PRN 02/19/17 07/22/17 [Percocet 10-325 mg Tablet] Theophylline Anhydrous [Oliver-24] 200 mg PO DAILY 02/19/17 07/22/17 Verapamil HCl [Verapamil ER] 180 mg PO DAILY 02/19/17 07/22/17 Sertraline [Zoloft] 150 mg PO DAILY 06/06/17 07/22/17 Diclofenac Sodium [Voltaren] 2 gm TP BID 07/12/17 07/22/17 Nicotine Polacrilex [Nicotine 2 mg BC Q2H PRN 07/12/17 07/22/17 Lozenge] hydroCHLOROthiazide 12.5 mg PO DAILY 07/12/17 07/22/17 [Hydrochlorothiazide] Previous Rx's Medication Instructions Recorded Apixaban [Eliquis] 5 mg PO BID #60 tablet 03/18/17 Clopidogrel [Plavix] 75 mg PO DAILY #30 tablet 06/10/17 Metoprolol [Lopressor] 50 mg PO BID #120 tablet 06/10/17 Sucralfate [Carafate] 1 gm PO TIDWM #21 udc 06/10/17 Megestrol Acetate [Megace] 40 mg PO DAILY 30 Days #30 tablet 07/14/17 predniSONE [PredniSONE] 40 mg PO DAILY #6 tablet 07/14/17 Allergies Allergy/AdvReac Type Severity Reaction Status Date / Time tiotropium Allergy Rash Verified 03/15/16 22:23 [From Spiriva with HandiHaler] bee stings Allergy Anaphylaxis Uncoded 07/22/17 12:51 All systems ED: reviewed and negative except as stated. Review of Systems: As Per HPI Past Medical History - Past Medical History Medical history: Reports: atrial fibrillation, COPD, fibromyalgia, GERD, hyperlipidemia, hypertension Surgical history: Reports: appendectomy, other Psychiatric history: Reports: anxiety, depression - Social History Smoking Status: Current every day smoker Smokeless Tobacco Status: Yes Alcohol use: Reports: none Drug use: Reports: none Physical Exam - General General appearance: alert - Head Head exam: atraumatic, normocephalic - Eye Eye exam: Present: normal appearance, PERRL, EOMI. Absent: scleral icterus, conjunctival injection - ENT ENT exam: mucous membranes moist, normal external ear exam - Neck Neck exam: Present: normal inspection, full ROM, trachea midline - Chest Chest inspection: Present: symmetric chest wall rise - Expanded Chest Exam Trauma: Absent: crepitus - Respiratory Respiratory exam: Present: wheezes, accessory muscle use, prolonged expiratory phase. Absent: stridor - Expanded Respiratory Exam Location: wheezes: Left, Right, decreased breath sounds: Left, Right - Cardiovascular Cardiovascular exam: Present: regular rate, normal rhythm, normal heart sounds - Abdominal Exam Abdominal exam: Present: soft, Non-Tender, normal bowel sounds. Absent: distention, guarding, rebound, rigidity - Extremities Exam Extremities exam: Present: normal inspection, normal capillary refill. Absent: tenderness, pedal edema - Back Exam Back exam: Present: normal inspection. Absent: tenderness - Neurological Exam Neurological exam: Present: alert, oriented X3. Absent: motor sensory deficit - Psychiatric Psychiatric exam: Present: normal affect, normal mood - Skin Skin exam: Present: warm, dry, intact, normal color. Absent: rash, cyanosis, diaphoresis Course Course Narrative: Chart check shows patient was admitted a 07/12 and discharged 07/14. Diagnoses: A. fib with RVR secondary to acute exacerbation of COPD due to acute bacterial bronchitis, chronic respiratory failure with hypoxia, moderate non-severe protein calorie malnutrition due to chronic illness Cardiac cath 06/06/17 showed 80% stenosis proximal LAD with CHENG placement. 30% stenosis of mid LAD. 30% stenosis prox circumflex & 30% 1st marginal. 15% instent stenosis in prox RCA, 40% stenosis mid RCS. No thrombus presents. Echocardiogram 06/06/17 showed LVEF 55-60% with normal LV size/thickness/ function. Patient has marked leukocytosis at 26.5. Anemia with hemoglobin 10.5; at the lower end of his normal range. Mild hyponatremia with normal renal function. Elevated BNP at 222. We will give him a small dose of Lasix and carefully watch his blood pressure. Troponin below upper limit of normal. Will recommend the hospitalist trend. Chest x-ray is not concerning for pneumonia. I discussed the above with the patient and at bedside. They are agreeable to admission for continued evaluation and management both for his acute exacerbation of COPD as well as possible new diagnosis of congestive heart failure. I discussed the patient with the admitting hospitalist who agrees to accept the patient for continued evaluation and management. Chest X-Ray 07/22/17 11:40 IMPRESSION: Stable appearing chest with chronic findings as detailed above. D/ / Starr Klein MD / Starr Klein MD Interpreting Provider: Starr Klein MD Vital Signs Temperature 98.9 F 07/22/17 11:20 Pulse Rate 82 07/22/17 11:20 Respiratory Rate 20 07/22/17 11:20 Blood Pressure 99/58 07/22/17 11:20 O2 Sat by Pulse Oximetry 96 07/22/17 11:20 Temperature 98.9 F 07/22/17 11:33 Pulse Rate 126 07/22/17 13:17 Respiratory Rate 14 07/22/17 13:17 Blood Pressure 105/79 07/22/17 13:17 O2 Sat by Pulse Oximetry 97 07/22/17 13:17 Oxygen Delivery Oxygen Delivery Nasal Cannula Shortness of Breath/Dyspnea - Medical Records Medical records reviewed: Yes I reviewed the patient's medical records. - Lab Data Result diagrams: 07/22/17 11:46 07/22/17 11:46 Lab Results 07/22/17 07/22/17 07/22/17 Range/Units 11:46 11:46 11:46 WBC 26.5 H (4.3-11.1) K/mcL RBC 3.99 L (4.19-5.50) M/mcL Hgb 10.5 L (12.9-16.9) g/dL Hct 32.7 L (37.5-50.1) % MCV 82.0 L (83.0-100.0) fL MCH 26.3 L (28.0-33.3) pg MCHC 32.1 (31.6-35.5) g/dL RDW 17.5 H (11.5-14.5) % Plt Count 391 (140-400) K/mcL MPV 9.1 L (9.4-12.4) fL Immature Gran % 1.6 (0-4) % Seg Neutrophils % 80.5 % Lymphocytes % 8.9 % Monocytes % 7.9 % Eosinophils % 0.9 % Basophils % 0.2 % Neutrophils # 21.3 H (1.6-8.9) K/mcL Lymphocytes # 2.4 (0.6-4.6) K/mcL Monocytes # 2.1 H (0.0-1.3) K/mcL Eosinophils # 0.2 (0.0-0.6) K/mcL Basophils # 0.1 (0.0-0.2) K/mcL Platelet Estimate Normal (Normal) Target Cells 1+ A (Not Present) Sodium 132 L (136-145) mEq/L Potassium 4.4 (3.5-5.1) mEq/L Chloride 98 (98-107) mEq/L Carbon Dioxide 30 H (23-29) mEq/L BUN 16 (8-23) mg/dL Creatinine 0.82 (0.70-1.30) mg/dL Est GFR ( Amer) > 60 (> 60) Est GFR (Non-Af Amer) > 60 (> 60) BUN/Creatinine Ratio 20 (6-26) Glucose 78 (70-105) mg/dL Calculated Osmolality 274 L (280-300) Lactic Acid 0.8 (0.5-2.2) mmol/L Calcium 8.9 (8.6-10.3) mg/dL Total Bilirubin 0.7 (0.3-1.0) mg/dL Direct Bilirubin 0.1 (0.0-0.2) mg/dL Indirect Bilirubin 0.6 (0.0-1.2) mg/dL AST 16 (13-39) Units/L ALT 34 (7-52) Units/L Alkaline Phosphatase 45 (34-104) Units/L Troponin I (< 0.04) ng/mL B-Natriuretic Peptide (Less than 100) pg/mL Serum Total Protein 7.1 (6.4-8.9) g/dL Albumin 3.0 L (3.5-5.7) g/dL Globulin 4.1 H (2.4-3.5) g/dL Albumin/Globulin Ratio 0.7 L (1.1-2.2) Urine Color (Yellow) Urine Clarity (Clear) Urine pH (5.0-8.0) pH Units Ur Specific [place] (1.010-1.025) Urine Protein (Neg-Trace) mg/dL Urine Glucose (UA) (Normal) mg/dL Urine Ketones (Negative) mg/dL Urine Blood (Negative) Urine Nitrite (Negative) Urine Bilirubin (Negative) Urine Urobilinogen (Normal) mg/dL Ur Leukocyte Esterase (Negative) 07/22/17 07/22/17 07/22/17 Range/Units 11:46 11:46 12:30 WBC (4.3-11.1) K/mcL RBC (4.19-5.50) M/mcL Hgb (12.9-16.9) g/dL Hct (37.5-50.1) % MCV (83.0-100.0) fL MCH (28.0-33.3) pg MCHC (31.6-35.5) g/dL RDW (11.5-14.5) % Plt Count (140-400) K/mcL MPV (9.4-12.4) fL Immature Gran % (0-4) % Seg Neutrophils % % Lymphocytes % % Monocytes % % Eosinophils % % Basophils % % Neutrophils # (1.6-8.9) K/mcL Lymphocytes # (0.6-4.6) K/mcL Monocytes # (0.0-1.3) K/mcL Eosinophils # (0.0-0.6) K/mcL Basophils # (0.0-0.2) K/mcL Platelet Estimate (Normal) Target Cells (Not Present) Sodium (136-145) mEq/L Potassium (3.5-5.1) mEq/L Chloride (98-107) mEq/L Carbon Dioxide (23-29) mEq/L BUN (8-23) mg/dL Creatinine (0.70-1.30) mg/dL Est GFR ( Amer) (> 60) Est GFR (Non-Af Amer) (> 60) BUN/Creatinine Ratio (6-26) Glucose (70-105) mg/dL Calculated Osmolality (280-300) Lactic Acid (0.5-2.2) mmol/L Calcium (8.6-10.3) mg/dL Total Bilirubin (0.3-1.0) mg/dL Direct Bilirubin (0.0-0.2) mg/dL Indirect Bilirubin (0.0-1.2) mg/dL AST (13-39) Units/L ALT (7-52) Units/L Alkaline Phosphatase (34-104) Units/L Troponin I < 0.03 (< 0.04) ng/mL B-Natriuretic Peptide 222 H (Less than 100) pg/mL Serum Total Protein (6.4-8.9) g/dL Albumin (3.5-5.7) g/dL Globulin (2.4-3.5) g/dL Albumin/Globulin Ratio (1.1-2.2) Urine Color Yellow (Yellow) Urine Clarity Clear (Clear) Urine pH 8.0 (5.0-8.0) pH Units Ur Specific [place] 1.016 (1.010-1.025) Urine Protein 30 H (Neg-Trace) mg/dL Urine Glucose (UA) Normal (Normal) mg/dL Urine Ketones Trace H (Negative) mg/dL Urine Blood Moderate H (Negative) Urine Nitrite Negative (Negative) Urine Bilirubin Negative (Negative) Urine Urobilinogen Normal (Normal) mg/dL Ur Leukocyte Esterase Negative (Negative) - EKG Data EKG attestation: Yes I reviewed and interpreted this EKG. EKG results narrative: EKG dated 22 July 2017 at 11:21 interpreted as sinus rhythm with rate of 81. Normal intervals. Normal axis. ST depression in precordial leads present on comparison EKG. [address] elevation isolated in lead V2. Compared to previous EKG dated 11/11/2014 showing no acute ischemic changes. It is concerning for cardiac strain. Critical Care Time Critical Care Time: Yes Total Critical Care Time: 35 Attestation: Critical care time is 35 minutes managing patient's chest pain and shortness of breath. Attestation Statement - Attestation Attestation: Patient was seen with resident physician. I reviewed the history, physical, assessment and plan, and agree with the findings. I also personally evaluated this patient and had [id number] time with this patient. 66-year-old male presents emergency Department with onset of shortness of breath since chest ray. Patient says it feels like his COPD or pneumonia which he gets with some frequency. Patient states that this feels more like his COPD and pneumonia issues. He did have some chest pain last night but he said only with deep inspiration or with cough. Described more of a chest wall pain. He does not cardiac history however. Patient's on 2 L of oxygen at home and he said he still feels short of breath despite his usual oxygen regimen. He has not had fevers or chills no swelling of the lower extremities. No increase in weight. On examination vital signs mildly hypotensive but otherwise okay. Pulse ox was 95% on his 2 L. ENT unremarkable. Heart regular rhythm and rate. Lungs diffuse wheezing throughout barrel chested. Abdomen soft nontender. Extremities no swelling largely unremarkable. Neurologically intact. Psych patient appears appropriate. Skin no obvious rashes. ED course we will do workup for pneumonia influenza COPD and potential cardiac chest pain. His initial EKG demonstrates some ST segment depression which is seen in prior EKGs. He does have 1-lead with a little bit of elevation that was not seen previously but seems to be consistent more with cardiac strain and acute NM. He is not actively having chest pain. Once workup is complete I anticipate will admit the patient to the hospitalist service for chest pain and difficulty breathing. Patient had a markedly elevated white cell count, but no source of infection. His workup revealed a more of a CHF picture with some COPD. Patient was treated with nebulizer treatments. We spoke with the hospitalist service to arrange for admission. Critical care time 35 minutes. Agree with resident physician assessment and plan.
[2017-07-22] MEDS ORDERED: 0.9 % Sodium Chloride 500 ML IVC ONE (11:39)
[2017-07-22 11:58] LABS: Basophils % 0.2 %
[2017-07-22 11:59] LABS: Basophils # 0.1 K/mcL (0.0-0.2); Eosinophils % 0.9 %; Hematocrit 32.7 % (37.5-50.1); Hemoglobin 10.5 g/dL (12.9-16.9); Immature Granulocytes % 1.6 % (0-4); Lymphocytes # 2.4 K/mcL (0.6-4.6); Lymphocytes % 8.9 %; Mean Corpuscular HGB Conc 32.1 g/dL (31.6-35.5); Mean Corpuscular Hemoglobin 26.3 pg (28.0-33.3); Mean Platelet Volume 9.1 fL (9.4-12.4); Monocytes # 2.1 K/mcL (0.0-1.3); Monocytes % 7.9 %; Neutrophils # 21.3 K/mcL (1.6-8.9); Platelet Count 391 K/mcL (140-400); Red Blood Count 3.99 M/mcL (4.19-5.50); Red Cell Distribution Width 17.5 % (11.5-14.5); Segmented Neutrophils % 80.5 %
[2017-07-22 12:02] LABS: Eosinophils # 0.2 K/mcL (0.0-0.6)
[2017-07-22 12:12] LABS: Alanine Aminotransferase 34 Units/L (7-52); Albumin/Globulin Ratio 0.7 (1.1-2.2); Alkaline Phosphatase 45 Units/L (34-104); Aspartate Amino Transferase 16 Units/L (13-39); BUN/Creatinine Ratio 20 (6-26); Bilirubin,Direct 0.1 mg/dL (0.0-0.2); Bilirubin,Indirect 0.6 mg/dL (0.0-1.2); Bilirubin,Total 0.7 mg/dL (0.3-1.0); Blood Urea Nitrogen 16 mg/dL (8-23); Calcium 8.9 mg/dL (8.6-10.3); Carbon Dioxide 30 mEq/L (23-29); Chloride 98 mEq/L (98-107); Globulin 4.1 g/dL (2.4-3.5); Glucose 78 mg/dL (70-105); Osmolality,Calculated 274 (280-300); Potassium 4.4 mEq/L (3.5-5.1); Sodium 132 mEq/L (136-145); Total Protein 7.1 g/dL (6.4-8.9); eGFR For African Americans > 60 (> 60); eGFR For Non-African Americans > 60 (> 60)
[2017-07-22 12:38] LABS: Platelet Estimate Normal (Normal); Target Cells 1+ (Not Present)
[2017-07-22 12:53] LABS: Bilirubin,Urine Negative (Negative); Blood,Urine Moderate (Negative); Clarity,Urine Clear (Clear); Color,Urine Yellow (Yellow); Glucose,Urine (UA) Normal (Normal); Ketones,Urine Trace mg/dL (Negative); Leukocyte Esterase,Urine Negative (Negative); Nitrite,Urine Negative (Negative); Protein,Urine 30 mg/dL (Neg-Trace); Specific Gravity,Urine 1.016 (1.010-1.025); Urobilinogen,Urine Normal (Normal)
[2017-07-22 12:58] LABS: Bacteria,Urine None Seen per hpf (None-Few); Hyaline Casts,Urine None Seen per lpf (None-Few); Squamous Epithelial Cell,Urine Many per lpf (None-Few); WBC,Urine 0-3 per hpf (0-3)
[2017-07-22] MEDS ORDERED: Furosemide 20 MG/2 ML VIAL IVP ONE (13:19)
--- NOTE | 2017-07-22 16:44 | Internal Med History&Physical ---
Date of Encounter: 07/22/17 Time of Encounter: 16:00 Assessment and Plan (1) COPD exacerbation Current visit: No Status: Acute -Patient on baseline oxygen requirements -Will continue albuterol nebs and IV Solu-Medrol; also start IV Levaquin -Respiratory panel ordered (2) Atrial fibrillation with RVR Current visit: No Status: Acute -Patient on Cardizem drip (3) Bulla of lung Current visit: No Status: Chronic -Patient with stable bilateral apical bullous emphysema with emphysematous changes throughout his lungs (4) HLD (hyperlipidemia) Current visit: No Status: Chronic -Continue statin Qualifiers: Hyperlipidemia type: unspecified Qualified Code(s): E78.5 - Hyperlipidemia , unspecified (5) HTN (hypertension) Current visit: No Status: Chronic -Continue home medications Qualifiers: Hypertension type: essential hypertension Qualified Code(s): I10 - Essential (primary) hypertension (6) Chronic respiratory failure Current visit: No Status: Resolved -On baseline O2 requirement Qualifiers: Respiratory failure complication: hypoxia Qualified Code(s): J96.11 - Chronic respiratory failure with hypoxia (7) DVT prophylaxis Current visit: No Status: Acute -Continue home dose of Eliquis Internal Medicine - H&P: HPI Chief complaint: Shortness of breath Admitted From: Home History of present illness: Patient is a 66-year-old male with past medical history significant for atrial fibrillation, CAD -CHENG to prox RCA, valvular heart disease, HLD, HTN and stable bilateral apical bullous emphysema with emphysematous changes throughout his lungs who presents to the ER on 07/22/17 due to shortness of breath and nonproductive cough. Patient reports that his symptoms have been present for approximately one day and reports associated symptoms of chills. Patient decided to come to the ER for evaluation. The ER, patient was found to have white blood cell count 26.5; chest x-ray showed stable appearing chest with chronic findings. Examination of patient on the floor, revealed the patient was also in atrial fibrillation with RVR and Cardizem drip was started. Patient will be admitted to the medical surgical floor for COPD exacerbation and atrial fibrillation with RVR. Past Med Surg Social Fam HX - Past Medical History Medical history: atrial fibrillation, COPD, fibromyalgia, GERD, hyperlipidemia, hypertension Psychiatric history: anxiety, depression - Past Surgical History Surgical History: appendectomy, other - Social History Smoking Status: Current every day smoker Smokeless Tobacco Status: Yes Alcohol use: none Drug use: none - Family History Sister Family Member Ethnicity: Non- Living Status: Still Living Hx Family Cardiac Disorders: Yes (HD) Hx Family Respiratory Disorders: No Hx Family Cancer: Yes (Breast) Hx Family GI Disorders: No Hx Family Endocrine Disorder: No Hx Family Neuromuscular Disorders: No Hx Family Neurologic Disorders: No Hx Family HEENT Disorders: No Hx Family Autoimmune Disorders: No Brother Family Member Ethnicity: Non- Living Status: Still Living Mother Family Member Ethnicity: Non- Living Status: Father Family Member Ethnicity: Non- Living Status: Age at : 73 Cause of : BLADDER CANCER Hx Family Cardiac Disorders: No Hx Family Respiratory Disorders: No Hx Family Cancer: Yes Hx Family Endocrine Disorder: No Hx Family Medical Disorders: Yes Internal Medicine - H&P: Meds Albuterol Neb [Proventil Neb] 2.5 mg IH TID 02/19/17 [History] Albuterol Sulfate [Albuterol Inhaler] 2 puff IH Q6H PRN 02/19/17 [History] Alendronate Sodium [Fosamax] 70 mg PO WE 02/19/17 [History] Atorvastatin [Lipitor] 40 mg PO HS 02/19/17 [History] Budesonide/Formoterol 160/4.5 [Symbicort 160/4.5] 2 puff IH BIDR 02/19/17 [ History] Cetirizine HCl [All Day Allergy] 10 mg PO DAILY 02/19/17 [History] Gabapentin [Neurontin] 900 mg PO TID 02/19/17 [History] Melatonin 10 mg PO HS PRN 02/19/17 [History] Omeprazole [PriLOSEC] 20 mg PO DAILY 02/19/17 [History] Oxycodone HCl/Acetaminophen [Percocet 10-325 mg Tablet] 1 tab PO 5XD PRN [History] Theophylline Anhydrous [Oliver-24] 200 mg PO DAILY 02/19/17 [History] Verapamil HCl [Verapamil ER] 180 mg PO DAILY 02/19/17 [History] Apixaban [Eliquis] 5 mg PO BID #60 tablet 03/18/17 [Rx] Sertraline [Zoloft] 150 mg PO DAILY 06/06/17 [History] Clopidogrel [Plavix] 75 mg PO DAILY #30 tablet 06/10/17 [Rx] Metoprolol [Lopressor] 50 mg PO BID #120 tablet 06/10/17 [Rx] Sucralfate [Carafate] 1 gm PO TIDWM #21 udc 06/10/17 [Rx] Diclofenac Sodium [Voltaren] 2 gm TP BID 07/12/17 [History] Nicotine Polacrilex [Nicotine Lozenge] 2 mg BC Q2H PRN 07/12/17 [History] hydroCHLOROthiazide [Hydrochlorothiazide] 12.5 mg PO DAILY 07/12/17 [History] Megestrol Acetate [Megace] 40 mg PO DAILY 30 Days #30 tablet 07/14/17 [Rx] predniSONE [PredniSONE] 40 mg PO DAILY #6 tablet 07/14/17 [Rx] 3 Allergy/AdvReac Type Severity Reaction Status Date / Time tiotropium Allergy Rash Verified 03/15/16 22:23 [From Spiriva with HandiHaler] bee stings Allergy Anaphylaxis Uncoded 07/22/17 12:51 All Systems PM: A 10-system review of systems was performed and is negative for pertinent findings except as documented above in the HPI. - Constitutional Vitals: Temp Pulse Resp BP Pulse Ox 98.9 F 117 17 114/51 96 07/22/17 14:04 07/22/17 14:04 07/22/17 14:04 07/22/17 14:04 07/22/17 14:04 General appearance: Present: A&O X 3, no acute distress - Eye Eye exam: Present: normal appearance - ENT ENT exam: Present: mucous membranes moist - Respiratory Respiratory exam: Present: CTAB. Absent: accessory muscle use, rales, rhonchi, wheezes - Cardiovascular Cardiovascular exam: Present: RRR, +S1, +S2. Absent: diastolic murmur, gallop, rubs, systolic murmur - GI/Abdominal GI/Abdominal exam: Present: normal bowel sounds, soft, no peritoneal signs. Absent: distended, tenderness - Extremities Exam Extremities exam: Absent: pedal edema - Expanded Lower Extremities Exam Lower Leg exam: Absent: swelling - Neurological Exam Neurological exam: Present: oriented X3 - Psychiatric Psychiatric exam: Present: normal mood - Skin Skin exam: Present: normal color Internal Med - H&P Results - Labs CBC & Chem 7: 07/22/17 11:46 07/22/17 11:46
[2017-07-22] MEDS ORDERED: Naloxone 0.4 MG/ML INJ IVP PRN (16:58)
[2017-07-22] MEDS ORDERED: Nicotine 2 MG GUM BC PRN (17:04)
[2017-07-22] MEDS: Levofloxacin 750 MG/150 ML 750 MG/150 ML BAG IVPB SCH (18:28)
[2017-07-22 18:51] LABS: Adenovirus Not Detected (Not Detect); Bordetella Pertussis Not Detected (Not Detect); Chlamydophila pneumoniae Not Detected (Not Detect); Coronavirus 229E Not Detected (Not Detect); Coronavirus HKU1 Not Detected (Not Detect); Coronavirus NL63 Not Detected (Not Detect); Coronavirus OC43 Not Detected (Not Detect); Human Metapneumovirus Not Detected (Not Detect); Human Rhinovirus/Enterovirus Not Detected (Not Detect); Influenza A Subtype 2009 H1 Not Detected (Not Detect); Influenza A Untypeable Not Detected (Not Detect); Influenza B Not Detected (Not Detect); Mycoplasma pneumoniae Not Detected (Not Detect); Parainfluenza Virus 1 Not Detected (Not Detect); Parainfluenza Virus 2 Not Detected (Not Detect); Parainfluenza Virus 3 Not Detected (Not Detect); Parainfluenza Virus 4 Not Detected (Not Detect); Respiratory Syncytial Virus Not Detected (Not Detect)
[2017-07-22] MEDS: Albuterol 2.5 MG/3 ML NEBULIZER IH SCH (20:13)
[2017-07-22] MEDS: Budesonide/Formoterol 160/4.5 MDI IH SCH (20:14)
[2017-07-22] MEDS ORDERED: Gabapentin 300 MG CAPSULE PO SCH (21:00)
[2017-07-22] MEDS: Apixaban 5 MG TABLET PO SCH (22:08)
[2017-07-22] MEDS: (Diclofenac Sodium [Voltaren] 2 GM) TP SCH (22:44)
[2017-07-22] MEDS: MethylPREDNISolone 40 MG/ML VIAL IVP SCH (22:49)
[2017-07-23] MEDS: Albuterol 2.5 MG/3 ML NEBULIZER IH SCH ×4 (00:09→10:51)
[2017-07-23 04:37] LABS: Basophils % 0.2 %; Hemoglobin 11.6 g/dL (12.9-16.9); Immature Granulocytes % 1.7 % (0-4); Lymphocytes # 1.2 K/mcL (0.6-4.6); Lymphocytes % 6.2 %; Mean Corpuscular HGB Conc 31.4 g/dL (31.6-35.5); Mean Corpuscular Hemoglobin 25.6 pg (28.0-33.3); Mean Corpuscular Volume 81.5 fL (83.0-100.0); Mean Platelet Volume 9.4 fL (9.4-12.4); Monocytes # 0.3 K/mcL (0.0-1.3); Monocytes % 1.7 %; Neutrophils # 17.6 K/mcL (1.6-8.9); Platelet Count 502 K/mcL (140-400); Red Blood Count 4.54 M/mcL (4.19-5.50); Red Cell Distribution Width 17.4 % (11.5-14.5); Segmented Neutrophils % 90.2 %
[2017-07-23 04:58] LABS: BUN/Creatinine Ratio 34 (6-26); Blood Urea Nitrogen 31 mg/dL (8-23); Calcium 9.3 mg/dL (8.6-10.3); Carbon Dioxide 27 mEq/L (23-29); Chloride 100 mEq/L (98-107); Glucose 122 mg/dL (70-105); Osmolality,Calculated 292 (280-300); Potassium 4.4 mEq/L (3.5-5.1); Sodium 137 mEq/L (136-145); eGFR For African Americans > 60 (> 60); eGFR For Non-African Americans > 60 (> 60)
[2017-07-23] MEDS: Budesonide/Formoterol 160/4.5 MDI IH SCH ×2 (07:33→20:53)
[2017-07-23] MEDS: Loratadine 10 MG TABLET PO SCH (08:29)
[2017-07-23] MEDS: Verapamil ER (24 HR) 180 MG TABLET.ER PO SCH (08:29)
[2017-07-23] MEDS: Apixaban 5 MG TABLET PO SCH ×2 (08:29→22:09)
[2017-07-23] MEDS: hydroCHLOROthiazide 25 MG TABLET PO SCH (08:30)
[2017-07-23] MEDS: (Diclofenac Sodium [Voltaren] 2 GM) TP SCH ×2 (08:32→22:09)
[2017-07-23] MEDS: MethylPREDNISolone 40 MG/ML VIAL IVP SCH ×2 (08:32→16:20)
[2017-07-23] MEDS: *HR* OxyCODONE/APAP 10/325 TABLET PO PRN ×2 (11:53→22:12)
--- NOTE | 2017-07-23 15:30 | Internal Med Progress Note ---
Date of Encounter: 07/23/17 Time of Encounter: 15:25 - Assessment and plan (1) Acute exacerbation of chronic obstructive airways disease Current Visit: Yes Status: Acute Assessment and plan: 66/male Admitted with worsening shortness of breath. Using accessory muscles of respiration. Has polyphonic rhonchi. Pulmonary function test: 01/2016: FEV1= 55%, FVC= 77% Noted that patient has elevated white blood cell count ( 26K) upon arrival which is trending downwards now (19.5K) Patient is presently on Intravenous Levofloxacin 750 mg every 24 hours. Intravenous Solu-Medrol 40 mg every 8 hours. Inhaled bronchodilators every 4 hours. Assessment: Acute exacerbation of COPD. Plan: We will continue present treatment for now. Close monitoring of the respiratory status. We will get labs tomorrow. (2) Atrial fibrillation with RVR Current Visit: No Status: Acute Assessment and plan: Noted that patient was in atrial fibrillation with rapid ventricular rate upon arrival. Patient received IV Cardizem and a drip form. Patient is presently off drip. Rate control: Metoprolol 50 mg twice a day/verapamil 180 mg once a day extended release. Anticoagulation: Brianaquis Patient's heart rate is very well controlled at this point. We will still keep the order for intravenous Cardizem if needed. (3) CAD (coronary artery disease) Current Visit: No Status: Chronic Assessment and plan: Patient is known to have a coronary artery disease. Echocardiogram: 05/2017: EF: 55-60%. Normal LV chamber size, wall segments showed normal motion Cardiac catheterization: 05/2017: Stent with PTCA, drug-eluting stent in proximal LAD We will continue DAPT Qualifiers: Coronary Disease-Associated Artery/Lesion type: [place] artery [place] vs. transplanted heart: [place] heart Associated angina: without angina Qualified Code(s): I25.10 - Atherosclerotic heart disease of [place] coronary artery without angina pectoris (4) HTN (hypertension) Current Visit: No Status: Chronic Assessment and plan: Continue home medication Qualifiers: Hypertension type: essential hypertension Qualified Code(s): I10 - Essential (primary) hypertension (5) DVT prophylaxis Current Visit: No Status: Acute Assessment and plan: Eliquis Medical decision making: This patient has a moderate to severe risk of worsening in spite of being on appropriate medication due to the underlying complex comorbid conditions. - Subjective Interval history: Patient seen and examined. Chart reviewed. Patient is comfortably lying in bed. Patient does have occasional cough/shortness of breath. Patient denies any chest pain at this point. - Constitutional Vitals: Temp Pulse Resp BP Pulse Ox 98.1 F 83 14 130/77 98 07/23/17 14:54 07/23/17 14:54 07/23/17 14:54 07/23/17 14:54 07/23/17 14:54 General appearance: Present: A&O X 3, no acute distress - Head Head exam: Present: atraumatic, normocephalic - Eye Eye exam: Present: PERRL, conjuntiva pink, sclera anicteric Pupils: Present: PERRL - Neck Neck exam general surgery: Present: supple, trachea midline. Absent: lymphadenopathy - Respiratory Respiratory exam: Present: CTAB. Absent: accessory muscle use, rales, rhonchi, wheezes - Cardiovascular Cardiovascular exam: Present: RRR, +S1, +S2. Absent: diastolic murmur, gallop, rubs, systolic murmur - GI/Abdominal GI/Abdominal exam: Present: normal bowel sounds, soft, no peritoneal signs. Absent: distended, tenderness - Extremities Exam Extremities exam: Present: warm, radial pulses palpable and symmetrical. Absent : calf tenderness, cyanotic, pedal edema - Neurological Exam Neurological exam: Present: CN II-XII intact, oriented X3, no focal deficits. Absent: pronater drift, facial droop, speech deficit - Skin Skin exam: Present: dry, intact Internal Medicine: Result - Labs CBC & Chem 7: 07/23/17 03:56 07/23/17 03:56 Labs: Short CBC 07/23/17 Range/Units 03:56 WBC 19.5 H (4.3-11.1) K/mcL Hgb 11.6 L (12.9-16.9) g/dL Hct 37.0 L (37.5-50.1) % Plt Count 502 H (140-400) K/mcL Neutrophils # 17.6 H (1.6-8.9) K/mcL BMP 07/23/17 03:56 Sodium 137 Potassium 4.4 Chloride 100 Carbon Dioxide 27 BUN 31 H Creatinine 0.91 Glucose 122 H Calcium 9.3 Consult Discharge Plan - Plan [facility]: [facility] [Primary Care Provider] -
[2017-07-23] MEDS: Levofloxacin 750 MG/150 ML 750 MG/150 ML BAG IVPB SCH (16:20)
[2017-07-23] MEDS: Melatonin 3 MG TABLET PO PRN (22:13)
[2017-07-24] MEDS: MethylPREDNISolone 40 MG/ML VIAL IVP SCH ×4 (00:09→23:24)
[2017-07-24 03:56] LABS: Basophils % 0.2 %; Lymphocytes % 3.1 %; Mean Corpuscular Hemoglobin 25.7 pg (28.0-33.3); Monocytes % 1.8 %
[2017-07-24 03:58] LABS: Basophils # 0.1 K/mcL (0.0-0.2); Hematocrit 32.5 % (37.5-50.1); Hemoglobin 10.5 g/dL (12.9-16.9); Immature Granulocytes % 2.1 % (0-4); Lymphocytes # 1.1 K/mcL (0.6-4.6); Mean Corpuscular HGB Conc 32.3 g/dL (31.6-35.5); Mean Corpuscular Volume 79.7 fL (83.0-100.0); Mean Platelet Volume 9.3 fL (9.4-12.4); Monocytes # 0.6 K/mcL (0.0-1.3); Neutrophils # 31.6 K/mcL (1.6-8.9); Platelet Count 467 K/mcL (140-400); Red Blood Count 4.08 M/mcL (4.19-5.50); Red Cell Distribution Width 17.3 % (11.5-14.5); Segmented Neutrophils % 92.8 %
[2017-07-24 04:29] LABS: Alanine Aminotransferase 31 Units/L (7-52); Albumin 3.2 g/dL (3.5-5.7); Albumin/Globulin Ratio 0.8 (1.1-2.2); Alkaline Phosphatase 49 Units/L (34-104); Aspartate Amino Transferase 22 Units/L (13-39); BUN/Creatinine Ratio 40 (6-26); Bilirubin,Total 0.3 mg/dL (0.3-1.0); Blood Urea Nitrogen 39 mg/dL (8-23); Calcium 8.7 mg/dL (8.6-10.3); Carbon Dioxide 28 mEq/L (23-29); Chloride 99 mEq/L (98-107); Globulin 4.2 g/dL (2.4-3.5); Glucose 144 mg/dL (70-105); Osmolality,Calculated 290 (280-300); Potassium 4.2 mEq/L (3.5-5.1); Sodium 134 mEq/L (136-145); Total Protein 7.4 g/dL (6.4-8.9); eGFR For African Americans > 60 (> 60); eGFR For Non-African Americans > 60 (> 60)
[2017-07-24 04:50] LABS: Hypersegmented Neutrophils Present (Not Present)
[2017-07-24] MEDS: hydroCHLOROthiazide 25 MG TABLET PO SCH (08:25)
[2017-07-24] MEDS: Apixaban 5 MG TABLET PO SCH ×2 (08:26→20:44)
[2017-07-24] MEDS: Verapamil ER (24 HR) 180 MG TABLET.ER PO SCH (08:26)
[2017-07-24] MEDS: Loratadine 10 MG TABLET PO SCH (08:26)
[2017-07-24] MEDS: (Diclofenac Sodium [Voltaren] 2 GM) TP SCH (08:27)
[2017-07-24] MEDS: *HR* OxyCODONE/APAP 10/325 TABLET PO PRN ×3 (08:28→23:24)
[2017-07-24 09:43] LABS: Basophils % 0.2 %; Hemoglobin 10.8 g/dL (12.9-16.9); Lymphocytes % 2.9 %; Mean Platelet Volume 8.8 fL (9.4-12.4); Monocytes % 2.6 %
[2017-07-24 09:44] LABS: Basophils # 0.1 K/mcL (0.0-0.2); Hematocrit 33.6 % (37.5-50.1); Immature Granulocytes % 2.3 % (0-4); Lymphocytes # 1.1 K/mcL (0.6-4.6); Mean Corpuscular HGB Conc 32.1 g/dL (31.6-35.5); Mean Corpuscular Hemoglobin 26.1 pg (28.0-33.3); Mean Corpuscular Volume 81.2 fL (83.0-100.0); Platelet Count 484 K/mcL (140-400); Red Blood Count 4.14 M/mcL (4.19-5.50); Red Cell Distribution Width 17.2 % (11.5-14.5)
[2017-07-24 09:46] LABS: Neutrophils # 34.6 K/mcL (1.6-8.9)
[2017-07-24 10:05] LABS: Platelet Estimate Increased (Normal)
[2017-07-24] MEDS: Albuterol 2.5 MG/3 ML NEBULIZER IH PRN ×3 (10:50→20:01)
[2017-07-24] MEDS: Budesonide/Formoterol 160/4.5 MDI IH SCH ×2 (10:50→20:01)
[2017-07-24 12:54] LABS: Immature Reticulocyte % 19.8 % (11.0-38.0); Retculocyte # 0.04 M/mcL (0.05-0.10); Reticulocyte % 1.1 % (1.6-2.8)
[2017-07-24 13:31] LABS: Folate 12.3 ng/mL (3.0-16.0)
--- NOTE | 2017-07-24 15:38 | Oncology Inp Consult Note ---
<Thi Montalvo L - Last Filed: 07/25/17 09:31> Date of Encounter: 07/24/17 Time of Encounter: 15:00 Assessment and Plan (1) Leukocytosis Status: Acute Assessment and plan: Mr. Bai has had chronically elevated neutrophil predominant leukocytosis since 2013 which has acutely worsened over most recent hospital stay. No lymphoctosis, no basophila. Tending lab work shows average WBC count around 15 k/mcL, neutrophil count greatly varies over time anywhere from 9-19 k/mcL. He has had COPD for a number of years and has been on steroids chronically in the past. Currently an everyday smoker. He likely has a leukemoid reaction given his recent COPD exacerbation, in the setting of chronically elevated leukocytosis. With continued monitoring we would expect his WBC counts to return back to baseline. If he does not achieve baseline continued workup for lymphoproliferative disorder would be warranted at that time. CXR and CT imaging as discussed in HPI, recommended continued annual surveillance per radiology recommendations for scattered subcentimeter nodules. Anemia workup has been ordered including B12, folate, iron profile, ferritin, ldh and retic count. Results pending. Blood smear reviewed per Dr. Ravi, significant for hypersegmented neutrophils. HPI significant for for unintended weight loss, he denies difficulty swallowing. Discussed plan as outlined above with patient and hospitalist team. Will arranged for an outpatient follow up with Dr. Ravi in about 2 weeks. Qualifiers: Leukocytosis type: unspecified Qualified Code(s): D72.829 - Elevated white blood cell count, unspecified - Data of Consult Patient: new to practice Consult date: 07/24/17 Requesting Physician: Connor Holm MD Primary Care Provider[facility] - Consult Narrative Reason for consult: Anemia, leukocytosis History of present illness: Mr. Bai is a 66 year old male with past medical history significant for atrial fibrillation, CAD, valvular heart disease, HLD, HTN and stable bilateral apical bullous emphysema. Mr. Bai presented to the ER on 07/22/17 due to shortness of breath, chill and nonproductive cough for about one day prior to admission. He was found to have white blood cell count 26.5; chest x-ray showed stable appearing chest with chronic findings. He reports chills with recent admission, denies night sweats or fatigue. He has had about a 30 pound weight loss over the past 4 years, likely attributed to his advanced COPD/Emphysema, he denies difficulty swallowing or issue with bleeding. He takes Eliquis for A-Fib. Chest CT from 06/07/17 shows chronic appearing changes in the lungs, with large cavitary lesions in the bilateral upper lobes, with cystic bronchiectasis and hilar retraction along with scattered predominantly subcentimeter pulmonary nodules, not significantly changed from previous examinations. Pulmonology was consulted during this admission and felt there was no imaging evidence of infected bullae and that there is minimal nodular debris which can be fungus growing and no evidence of cavitatory aspergilliosis. They recommended outpatient imaging if he has sudden worsening COPD symptoms. I encouraged continued yearly surveillance as recommended per radiology for nodules, he was given free lung screening program information. Past Med Surg Social Fam HX - Past Medical History Medical history: atrial fibrillation, COPD, fibromyalgia, GERD, hyperlipidemia, hypertension Psychiatric history: anxiety, depression - Past Surgical History Surgical History: appendectomy, other - Social History Smoking Status: Current every day smoker Smokeless Tobacco Status: Yes Alcohol use: none Drug use: none - Family History Sister Family Member Ethnicity: Non- Living Status: Still Living Hx Family Cardiac Disorders: Yes (HD) Hx Family Respiratory Disorders: No Hx Family Cancer: Yes (Breast) Hx Family GI Disorders: No Hx Family Endocrine Disorder: No Hx Family Neuromuscular Disorders: No Hx Family Neurologic Disorders: No Hx Family HEENT Disorders: No Hx Family Autoimmune Disorders: No Brother Family Member Ethnicity: Non- Living Status: Still Living Mother Family Member Ethnicity: Non- Living Status: Father Family Member Ethnicity: Non- Living Status: Age at : 73 Cause of : BLADDER CANCER Hx Family Cardiac Disorders: No Hx Family Respiratory Disorders: No Hx Family Cancer: Yes Hx Family Endocrine Disorder: No Hx Family Medical Disorders: Yes Medications and Allergies Albuterol Neb [Proventil Neb] 2.5 mg IH TID 02/19/17 [History] Albuterol Sulfate [Albuterol Inhaler] 2 puff IH Q6H PRN 02/19/17 [History] Alendronate Sodium [Fosamax] 70 mg PO WE 02/19/17 [History] Atorvastatin [Lipitor] 40 mg PO HS 02/19/17 [History] Budesonide/Formoterol 160/4.5 [Symbicort 160/4.5] 2 puff IH BIDR 02/19/17 [ History] Cetirizine HCl [All Day Allergy] 10 mg PO DAILY 02/19/17 [History] Gabapentin [Neurontin] 900 mg PO TID 02/19/17 [History] Melatonin 10 mg PO HS PRN 02/19/17 [History] Omeprazole [PriLOSEC] 20 mg PO DAILY 02/19/17 [History] Oxycodone HCl/Acetaminophen [Percocet 10-325 mg Tablet] 1 tab PO 5XD PRN [History] Theophylline Anhydrous [Oliver-24] 200 mg PO DAILY 02/19/17 [History] Verapamil HCl [Verapamil ER] 180 mg PO DAILY 02/19/17 [History] Apixaban [Eliquis] 5 mg PO BID #60 tablet 03/18/17 [Rx] Sertraline [Zoloft] 150 mg PO DAILY 06/06/17 [History] Clopidogrel [Plavix] 75 mg PO DAILY #30 tablet 06/10/17 [Rx] Metoprolol [Lopressor] 50 mg PO BID #120 tablet 06/10/17 [Rx] Sucralfate [Carafate] 1 gm PO TIDWM #21 udc 06/10/17 [Rx] Diclofenac Sodium [Voltaren] 2 gm TP BID 07/12/17 [History] Nicotine Polacrilex [Nicotine Lozenge] 2 mg BC Q2H PRN 07/12/17 [History] hydroCHLOROthiazide [Hydrochlorothiazide] 12.5 mg PO DAILY 07/12/17 [History] Megestrol Acetate [Megace] 40 mg PO DAILY 30 Days #30 tablet 07/14/17 [Rx] predniSONE [PredniSONE] 40 mg PO DAILY #6 tablet 07/14/17 [Rx] 3 Allergy/AdvReac Type Severity Reaction Status Date / Time tiotropium Allergy Rash Verified 03/15/16 22:23 [From Spiriva with HandiHaler] bee stings Allergy Anaphylaxis Uncoded 07/22/17 12:51 Constitutional: Present: chills, weight loss. Absent: fever(s) Eyes: Absent: change in vision Cardiovascular: Present: irregular heart rhythm. Absent: chest pain, palpitations Respiratory: Present: cough, dyspnea on exertion, wheezing Gastrointestinal: Absent: abdominal pain, hematemesis, hematochezia, melena, nausea, vomiting Additional comments: Denies dysuria Musculoskeletal: Absent: muscle cramps, muscle weakness Integumentary: Absent: wounds Neurological: Absent: numbness, syncope, tingling, vertigo Hematologic/Lymphatic: Absent: easy bleeding, lymphadenopathy Oncology - Exam - Constitutional Vitals: Temp Pulse Resp BP Pulse Ox 97.9 F 87 16 133/67 97 07/24/17 15:27 07/24/17 15:27 07/24/17 15:27 07/24/17 15:27 07/24/17 15:27 General appearance: cooperative, no acute distress, thin, no febrile Exam: Chronically ill appearing - Head Head exam: Present: atraumatic - ENT ENT exam: Present: mucous membranes moist - Respiratory Respiratory exam: Present: wheezes - Cardiovascular Cardiovascular exam: Present: irregular rhythm - GI/Abdominal GI/Abdominal exam: Present: normal bowel sounds, soft. Absent: guarding, tenderness - Extremities Exam Extremities exam: Present: normal inspection. Absent: calf tenderness - Neurological Exam Neurological exam: Present: alert, oriented X3, no focal deficits, strengths equal and symetr throughout - Psychiatric Psychiatric exam: Present: normal affect, normal mood - Skin Skin exam: Present: normal color, warm Oncology - Results Labs: Short CBC 07/24/17 07/24/17 Range/Units 02:24 09:33 WBC 34.0 H* D 37.6 H* (4.3-11.1) K/mcL Hgb 10.5 L 10.8 L (12.9-16.9) g/dL Hct 32.5 L 33.6 L (37.5-50.1) % Plt Count 467 H 484 H (140-400) K/mcL Neutrophils # 31.6 H 34.6 H (1.6-8.9) K/mcL BMP 07/24/17 02:24 Sodium 134 L Potassium 4.2 Chloride 99 Carbon Dioxide 28 BUN 39 H Creatinine 0.97 Glucose 144 H Calcium 8.7 Liver Function 07/24/17 Range/Units 02:24 Total Bilirubin 0.3 (0.3-1.0) mg/dL AST 22 (13-39) Units/L ALT 31 (7-52) Units/L Alkaline Phosphatase 49 (34-104) Units/L Albumin 3.2 L (3.5-5.7) g/dL Consult Discharge Plan - Plan [facility]errals: [facility] [Primary Care Provider] - <Michael Ravi - Last Filed: 07/25/17 11:22> Date of Encounter: 07/24/17 - Data of Consult Requesting Physician: Bo Tellez DO Primary Care Provider: PCP [place] - Consult Narrative History of present illness: Mr. Bai is a 66 year old male Oncology - Exam - Constitutional Vitals: Temp Pulse Resp BP Pulse Ox 97.8 F 87 16 154/89 98 07/25/17 08:02 07/25/17 08:02 07/25/17 11:08 07/25/17 08:02 07/25/17 11:08 Oncology - Results Labs: Short CBC 07/25/17 Range/Units 02:49 WBC 25.9 H (4.3-11.1) K/mcL Hgb 10.8 L (12.9-16.9) g/dL Hct 34.3 L (37.5-50.1) % Plt Count 436 H (140-400) K/mcL Neutrophils # 24.4 H (1.6-8.9) K/mcL BMP 07/24/17 07/25/17 02:24 02:49 Sodium 134 L 136 Potassium 4.2 4.3 Chloride 99 102 Carbon Dioxide 28 27 BUN 39 H 39 H Creatinine 0.97 0.92 Glucose 144 H 145 H Calcium 8.7 8.8 Liver Function 07/24/17 07/25/17 Range/Units 02:24 02:49 Total Bilirubin 0.3 0.3 (0.3-1.0) mg/dL AST 22 34 (13-39) Units/L ALT 31 41 (7-52) Units/L Alkaline Phosphatase 49 47 (34-104) Units/L Albumin 3.2 L 3.2 L (3.5-5.7) g/dL - Attending Attestation Seen and examined patient and agree with the plan. He likely has leukemoid reaction superimposed on leukocytosis 2/2 steroids. Hypersegmented neutrophils could be related to iron deficiency. B12 and folate are normal. I suspect that his leukocytosis is an indiosyncratic elevation on top of a baseline elevated WBC. Plan to recheck in 2 weeks. I dont suspect any myeloproliferative disorder at this time. Given the worsening anemia and microcytosis, obtained iron studies which are low. Recommend endoscopic evaluation prior to f/u with me. Patient has had significant weight loss over the past 4 years.
--- NOTE | 2017-07-24 16:46 | Internal Med Progress Note ---
Date of Encounter: 07/24/17 Time of Encounter: 16:44 - Assessment and plan (1) Acute exacerbation of chronic obstructive airways disease Current Visit: Yes Status: Acute Assessment and plan: 66/male Admitted with worsening shortness of breath. Using accessory muscles of respiration. Has polyphonic rhonchi. Pulmonary function test: 01/2016: FEV1= 55%, FVC= 77% Noted that patient has elevated white blood cell count ( 26K) upon arrival which is trending downwards now (19.5K) Patient is presently on Intravenous Levofloxacin 750 mg every 24 hours. Intravenous Solu-Medrol 40 mg every 8 hours. Inhaled bronchodilators every 4 hours. Assessment: Acute exacerbation of COPD. Plan: We will continue present treatment for now. Close monitoring of the respiratory status. We will get labs tomorrow. 07/24/2017 Patient is feeling much better as compared to yesterday. He is a third day of antibiotics. Noted that patient's white blood cell count is elevated. Also noted that hematology oncology was consulted by night team. We will follow the recommendations from hematology oncology. Home in next 1-2 days. (2) Atrial fibrillation with RVR Current Visit: No Status: Acute Assessment and plan: Noted that patient was in atrial fibrillation with rapid ventricular rate upon arrival. Patient received IV Cardizem and a drip form. Patient is presently off drip. Rate control: Metoprolol 50 mg twice a day/verapamil 180 mg once a day extended release. Anticoagulation: Eliquis Patient's heart rate is very well controlled at this point. We will still keep the order for intravenous Cardizem if needed. (3) CAD (coronary artery disease) Current Visit: No Status: Chronic Assessment and plan: Patient is known to have a coronary artery disease. Echocardiogram: 05/2017: EF: 55-60%. Normal LV chamber size, wall segments showed normal motion Cardiac catheterization: 05/2017: Stent with PTCA, drug-eluting stent in proximal LAD We will continue DAPT Qualifiers: Coronary Disease-Associated Artery/Lesion type: [place] artery [place] vs. transplanted heart: [place] heart Associated angina: without angina Qualified Code(s): I25.10 - Atherosclerotic heart disease of [place] coronary artery without angina pectoris (4) HTN (hypertension) Current Visit: No Status: Chronic Assessment and plan: Continue home medication Qualifiers: Hypertension type: essential hypertension Qualified Code(s): I10 - Essential (primary) hypertension (5) DVT prophylaxis Current Visit: No Status: Acute Assessment and plan: Tr Medical decision making: This patient has a moderate to severe risk of worsening in spite of being on appropriate medication due to the underlying complex comorbid conditions. - Subjective Interval history: Patient seen and examined. Chart reviewed. Patient is comfortably lying in bed. Patient does have occasional cough/shortness of breath. Patient denies any chest pain at this point. 07/24/2017 Patient seen and examined. Chart reviewed. Patient is comfortably sitting in a chair. Patient denies any chest pain, nausea, vomiting, abdominal pain, dizziness and diarrhea. Patient denies any history of malignancy. - Constitutional Vitals: Temp Pulse Resp BP Pulse Ox 97.9 F 87 16 133/67 97 07/24/17 15:27 07/24/17 15:27 07/24/17 15:27 07/24/17 15:27 07/24/17 15:27 General appearance: Present: A&O X 3, no acute distress - Head Head exam: Present: atraumatic, normocephalic - Eye Eye exam: Present: PERRL, conjuntiva pink, sclera anicteric Pupils: Present: PERRL - Neck Neck exam general surgery: Present: supple, trachea midline. Absent: lymphadenopathy - Respiratory Respiratory exam: Present: CTAB. Absent: accessory muscle use, rales, rhonchi, wheezes - Cardiovascular Cardiovascular exam: Present: RRR, +S1, +S2. Absent: diastolic murmur, gallop, rubs, systolic murmur - GI/Abdominal GI/Abdominal exam: Present: normal bowel sounds, soft, no peritoneal signs. Absent: distended, tenderness - Extremities Exam Extremities exam: Present: warm, radial pulses palpable and symmetrical. Absent : calf tenderness, cyanotic, pedal edema - Neurological Exam Neurological exam: Present: CN II-XII intact, oriented X3, no focal deficits. Absent: pronater drift, facial droop, speech deficit - Skin Skin exam: Present: dry, intact Internal Medicine: Result - Labs CBC & Chem 7: 07/24/17 09:33 07/24/17 02:24 Labs: Short CBC 07/24/17 07/24/17 Range/Units 02:24 09:33 WBC 34.0 H* D 37.6 H* (4.3-11.1) K/mcL Hgb 10.5 L 10.8 L (12.9-16.9) g/dL Hct 32.5 L 33.6 L (37.5-50.1) % Plt Count 467 H 484 H (140-400) K/mcL Neutrophils # 31.6 H 34.6 H (1.6-8.9) K/mcL BMP 07/24/17 02:24 Sodium 134 L Potassium 4.2 Chloride 99 Carbon Dioxide 28 BUN 39 H Creatinine 0.97 Glucose 144 H Calcium 8.7 Liver Function 07/24/17 Range/Units 02:24 Total Bilirubin 0.3 (0.3-1.0) mg/dL AST 22 (13-39) Units/L ALT 31 (7-52) Units/L Alkaline Phosphatase 49 (34-104) Units/L Albumin 3.2 L (3.5-5.7) g/dL Consult Discharge Plan - Plan [facility]errals: [facility] [Primary Care Provider] -
[2017-07-24 16:58] LABS: % Iron Saturation 8 % (20-55); Ferritin 557 ng/ml (20-250); Iron 21 mcg/dL (65-175); Lactate Dehydrogenase 226 Units/L (140-271); Transferrin 185 mg/dL (203-362)
[2017-07-24] MEDS: Levofloxacin 750 MG/150 ML 750 MG/150 ML BAG IVPB SCH (18:43)
[2017-07-24] MEDS: Melatonin 3 MG TABLET PO PRN (23:24)
[2017-07-25 04:23] LABS: Hemoglobin 10.8 g/dL (12.9-16.9); Lymphocytes % 2.9 %; Mean Corpuscular Hemoglobin 25.6 pg (28.0-33.3); Monocytes % 1.4 %; Red Blood Count 4.22 M/mcL (4.19-5.50); Segmented Neutrophils % 94.1 %
[2017-07-25 04:24] LABS: Basophils % 0.1 %; Hematocrit 34.3 % (37.5-50.1); Immature Granulocytes % 1.5 % (0-4); Lymphocytes # 0.8 K/mcL (0.6-4.6); Mean Corpuscular HGB Conc 31.5 g/dL (31.6-35.5); Mean Corpuscular Volume 81.3 fL (83.0-100.0); Monocytes # 0.4 K/mcL (0.0-1.3); Nucleated Red Blood Cells 0.1 /100 WBC (0); Platelet Count 436 K/mcL (140-400); Red Cell Distribution Width 17.2 % (11.5-14.5)
[2017-07-25 04:28] LABS: Neutrophils # 24.4 K/mcL (1.6-8.9)
[2017-07-25 05:06] LABS: Alanine Aminotransferase 41 Units/L (7-52); Albumin 3.2 g/dL (3.5-5.7); Albumin/Globulin Ratio 0.8 (1.1-2.2); Alkaline Phosphatase 47 Units/L (34-104); Aspartate Amino Transferase 34 Units/L (13-39); BUN/Creatinine Ratio 42 (6-26); Bilirubin,Total 0.3 mg/dL (0.3-1.0); Blood Urea Nitrogen 39 mg/dL (8-23); Calcium 8.8 mg/dL (8.6-10.3); Carbon Dioxide 27 mEq/L (23-29); Chloride 102 mEq/L (98-107); Glucose 145 mg/dL (70-105); Osmolality,Calculated 294 (280-300); Potassium 4.3 mEq/L (3.5-5.1); Sodium 136 mEq/L (136-145); Total Protein 7.2 g/dL (6.4-8.9); eGFR For African Americans > 60 (> 60); eGFR For Non-African Americans > 60 (> 60)
[2017-07-25 05:13] LABS: Platelet Estimate Increased (Normal); Toxic Granulation Present (Not Present)
[2017-07-25 05:14] LABS: Large Platelets Present (Not Present)
--- NOTE | 2017-07-25 08:32 | Internal Med Progress Note ---
Date of Encounter: 07/25/17 Time of Encounter: 08:28 - Constitutional Vitals: Temp Pulse Resp BP Pulse Ox 97.8 F 87 18 154/89 99 07/25/17 08:02 07/25/17 08:02 07/25/17 08:02 07/25/17 08:02 07/25/17 08:02 General appearance: Present: A&O X 3, no acute distress Internal Medicine: Result - Labs CBC & Chem 7: 07/25/17 02:49 07/25/17 02:49 Labs: Short CBC 07/24/17 07/25/17 Range/Units 09:33 02:49 WBC 37.6 H* 25.9 H (4.3-11.1) K/mcL Hgb 10.8 L 10.8 L (12.9-16.9) g/dL Hct 33.6 L 34.3 L (37.5-50.1) % Plt Count 484 H 436 H (140-400) K/mcL Neutrophils # 34.6 H 24.4 H (1.6-8.9) K/mcL BMP 07/24/17 07/25/17 02:24 02:49 Sodium 134 L 136 Potassium 4.2 4.3 Chloride 99 102 Carbon Dioxide 28 27 BUN 39 H 39 H Creatinine 0.97 0.92 Glucose 144 H 145 H Calcium 8.7 8.8 Liver Function 07/24/17 07/25/17 Range/Units 02:24 02:49 Total Bilirubin 0.3 0.3 (0.3-1.0) mg/dL AST 22 34 (13-39) Units/L ALT 31 41 (7-52) Units/L Alkaline Phosphatase 49 47 (34-104) Units/L Albumin 3.2 L 3.2 L (3.5-5.7) g/dL Consult Discharge Plan - Plan [facility]errals: [facility] [Primary Care Provider] -
[2017-07-25] MEDS: MethylPREDNISolone 40 MG/ML VIAL IVP SCH (08:59)
[2017-07-25] MEDS: Verapamil ER (24 HR) 180 MG TABLET.ER PO SCH (08:59)
[2017-07-25] MEDS: Loratadine 10 MG TABLET PO SCH (08:59)
[2017-07-25] MEDS: Apixaban 5 MG TABLET PO SCH (08:59)
[2017-07-25] MEDS: hydroCHLOROthiazide 25 MG TABLET PO SCH (08:59)
[2017-07-25] MEDS: *HR* OxyCODONE/APAP 10/325 TABLET PO PRN (09:04)
[2017-07-25] MEDS: Albuterol 2.5 MG/3 ML NEBULIZER IH PRN (11:06)
[2017-07-25] MEDS: Budesonide/Formoterol 160/4.5 MDI IH SCH (11:06)
[2017-07-25 11:44] VITALS: BP 127/85
--- NOTE | 2017-07-25 13:30 | Discharge Summary ---
<Manoj Amaya - Last Filed: 07/25/17 17:42> Date of Encounter: 07/25/17 Time of Encounter: 13:29 - Discharge Diagnosis (1) Acute exacerbation of chronic obstructive airways disease Priority: Primary Status: Resolved (2) CAD (coronary artery disease) Priority: Secondary Status: Chronic Qualifiers: Coronary Disease-Associated Artery/Lesion type: [place] artery [place] vs. transplanted heart: [place] heart Associated angina: without angina Qualified Code(s): I25.10 - Atherosclerotic heart disease of [place] coronary artery without angina pectoris (3) PAF (paroxysmal atrial fibrillation) Priority: Secondary Status: Chronic (4) COPD exacerbation Priority: Primary Status: Acute - Discharge Medications Prescriptions: levoFLOXacin [Levaquin] 750 mg PO DAILY 2 Days #2 tablet predniSONE [PredniSONE] 40 mg PO DAILY 5 Days #10 tablet Home Medications: Albuterol Neb [Proventil Neb] 2.5 mg IH TID 02/19/17 [History] Albuterol Sulfate [Albuterol Inhaler] 2 puff IH Q6H PRN 02/19/17 [History] Alendronate Sodium [Fosamax] 70 mg PO WE 02/19/17 [History] Atorvastatin [Lipitor] 40 mg PO HS 02/19/17 [History] Budesonide/Formoterol 160/4.5 [Symbicort 160/4.5] 2 puff IH BIDR 02/19/17 [ History] Cetirizine HCl [All Day Allergy] 10 mg PO DAILY 02/19/17 [History] Gabapentin [Neurontin] 900 mg PO TID 02/19/17 [History] Melatonin 10 mg PO HS PRN 02/19/17 [History] Omeprazole [PriLOSEC] 20 mg PO DAILY 02/19/17 [History] Oxycodone HCl/Acetaminophen [Percocet 10-325 mg Tablet] 1 tab PO 5XD PRN [History] Theophylline Anhydrous [Oliver-24] 200 mg PO DAILY 02/19/17 [History] Verapamil HCl [Verapamil ER] 180 mg PO DAILY 02/19/17 [History] Apixaban [Eliquis] 5 mg PO BID #60 tablet 03/18/17 [Rx] Sertraline [Zoloft] 150 mg PO DAILY 06/06/17 [History] Clopidogrel [Plavix] 75 mg PO DAILY #30 tablet 06/10/17 [Rx] Metoprolol [Lopressor] 50 mg PO BID #120 tablet 06/10/17 [Rx] Sucralfate [Carafate] 1 gm PO TIDWM #21 udc 06/10/17 [Rx] Diclofenac Sodium [Voltaren] 2 gm TP BID 07/12/17 [History] Nicotine Polacrilex [Nicotine Lozenge] 2 mg BC Q2H PRN 07/12/17 [History] hydroCHLOROthiazide [Hydrochlorothiazide] 12.5 mg PO DAILY 07/12/17 [History] Megestrol Acetate [Megace] 40 mg PO DAILY 30 Days #30 tablet 07/14/17 [Rx] predniSONE [PredniSONE] 40 mg PO DAILY #6 tablet 07/14/17 [Rx] levoFLOXacin [Levaquin] 750 mg PO DAILY 2 Days #2 tablet 07/25/17 [Rx] predniSONE [PredniSONE] 40 mg PO DAILY 5 Days #10 tablet 07/25/17 [Rx] Allergies/Adverse Reactions: 3 Allergy/AdvReac Type Severity Reaction Status Date / Time tiotropium Allergy Rash Verified 03/15/16 22:23 [From Spiriva with HandiHaler] bee stings Allergy Anaphylaxis Uncoded 07/22/17 12:51 Procedures/tests Complete & Pending: Procedures Performed prior 72 hours Category Date Time Status ECG 12 lead ECG [ECG] Routine Y 07/22/17 13:42 Completed Date of admission: 07/22/17 17:23 [facility] care physician: [facility] Consults: 07/24/17 04:25 Consult to Oncology Hematology [CONS] Routine Consulting Provider: Michael Ravi Reason for Consult: chronic leukocytosis; R/O leukemia Call Completed: No Discharging clinician: Manoj Amaya Anticipated date of discharge: 07/25/17 - Patient Status Disposition: Home Health Service Condition: Fair Overall status at discharge: patient is progressing back to baseline - Discharge Instructions Instructions: Prednisone (By mouth), Levofloxacin (By mouth), Heart Failure (DC ), Atrial Fibrillation (DC), Chronic Obstructive Pulmonary Disease (DC), Sepsis (DC), Chronic Hypertension (DC), Cigarette Smoking and Your Health, Packaging Clerk (GEN) Follow Up With: Davon Dasilva MD [Partnered Physician] - (requested an appointment the office will call patient at home with appointment date and time) Michael Rvai [Non-Partnered Physician] - 08/08/17 8:30 am [facility],PCP [Primary Care Provider] - 08/01/17 1:30 pm Juan Jose Jaime MD [Partnered Physician] - (requested an appointment for an EGD next week the office will call patient at home with appointment date and time if you have not heard from them by the beginning of next week please call them ) Additional Instructions: Follow up with PCP in 3-5 days Follow up with Oncology in 2 weeks Follow up with your anime artist Take medications as prescribed - Diet and Activity Activity: increase activity as tolerated Diet: advance to your usual diet Interval History: Mr. 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 He is started on IV steroids, bronchodilators, Levaquin for antibiotic coverage and placed on nasal cannula oxygen to maintain oxygen saturations 8893%. He continued to history improvement with weaning of the steroids and oxygen requirements. He uses bronchodilators as scheduled with improvement in his overall condition. His a history of leukocytosis his WBC count went from 19.5-37.16 by hematology who believe it secondary to a leukemoid reaction and IV steroids. The patient did not have any other findings of infectious source. His days he started trending down over 25.9 on 07/25/2017 at which time he felt back to baseline seen about a patient bedside and deemed stable for discharge with close follow-up with his primary care provider, pulmonology, hematology in 2 weeks. The patient was agreeable and this provided prednisone 40 mg by mouth for 5 days and recommended to hold his other chronic steroids other than his inhaled steroids during this time. He was provided the remainder of his Levaquin by mouth. Hospital course: Mr. Bai is a 66 year old male - Time Spent with Patient Total time spent providing and/or coordinating discharge services: - Constitutional Vitals: Temp Pulse Resp BP Pulse Ox 97.6 F 78 16 127/85 94 07/25/17 11:43 07/25/17 11:43 07/25/17 11:43 07/25/17 11:43 07/25/17 11:43 General appearance: Present: A&O X 3, no acute distress - Head Head exam: Present: atraumatic, normocephalic - Eye Eye exam: Present: PERRL, conjuntiva pink, sclera anicteric Pupils: Present: PERRL - Neck Neck exam general surgery: Present: supple, trachea midline. Absent: lymphadenopathy - Respiratory Respiratory exam: Present: CTAB. Absent: accessory muscle use, rales, rhonchi, wheezes - Cardiovascular Cardiovascular exam: Present: RRR, +S1, +S2. Absent: diastolic murmur, gallop, rubs, systolic murmur - GI/Abdominal GI/Abdominal exam: Present: normal bowel sounds, soft, no peritoneal signs. Absent: distended, tenderness - Extremities Exam Extremities exam: Present: warm, radial pulses palpable and symmetrical. Absent : calf tenderness, cyanotic, pedal edema - Neurological Exam Neurological exam: Present: CN II-XII intact, oriented X3, no focal deficits. Absent: pronater drift, facial droop, speech deficit - Skin Skin exam: Present: dry, intact <Bo Tellez - Last Filed: 07/25/17 18:34> Date of Encounter: 07/25/17 - Discharge Diagnosis (1) Acute exacerbation of chronic obstructive airways disease Priority: Primary Status: Acute (2) Afib Priority: Secondary Status: Chronic Qualifiers: Atrial fibrillation type: paroxysmal Qualified Code(s): I48.0 - Paroxysmal atrial fibrillation (3) CAD (coronary artery disease) Status: Chronic Qualifiers: Coronary Disease-Associated Artery/Lesion type: [place] artery [place] vs. transplanted heart: [place] heart Associated angina: without angina Qualified Code(s): I25.10 - Atherosclerotic heart disease of [place] coronary artery without angina pectoris (4) HTN (hypertension) Priority: Secondary Status: Chronic Qualifiers: Hypertension type: essential hypertension Qualified Code(s): I10 - Essential (primary) hypertension (5) Tobacco abuse Priority: Secondary Status: Chronic (6) Leukocytosis Priority: Secondary Status: Chronic Qualifiers: Leukocytosis type: leukemoid reaction Qualified Code(s): D72.823 - Leukemoid reaction Date of admission: 07/22/17 17:23 Primary care physician: [facility] Consults: 07/24/17 04:25 Consult to Oncology Hematology [CONS] Routine Consulting Provider: Michael Ravi Reason for Consult: chronic leukocytosis; R/O leukemia Call Completed: No Hospital course: Mr. Bai is a 66 year old male - Time Spent with Patient Total time spent providing and/or coordinating discharge services: 37min - Constitutional Vitals: Temp Pulse Resp BP Pulse Ox 97.6 F 78 16 127/85 94 07/25/17 11:43 07/25/17 11:43 07/25/17 11:43 07/25/17 11:43 07/25/17 11:43 - Attending Attestation I examined this patient and my medical decision-making was reviewed with the Resident Physician on 07/25/17. I agree with the documented findings, disposition and treatment plan as described except to the extent set forth below. Mr Bai has been admitted for acute exac COPD. He is now on room air and vitals are stable. He did not understand the timing of some of his home meds and this has been reviewed with him by pharmacy. He is ready for discharge home. Exam alert. Comfortable Mucus membranes dry Heart reg No wheeze Plan D/C home today
--- NOTE | 2017-07-25 13:34 | Physician Discharge Referral ---
Home Health/Hosp Referral Info Transfer to: Home Health Provider in Charge Post Discharge: PCP - Diagnosis (1) Leukocytosis Priority: Primary Status: Acute (2) Acute exacerbation of chronic obstructive airways disease Priority: Primary Status: Resolved (3) Afib Priority: Secondary Status: Chronic (4) HTN (hypertension) Priority: Secondary Status: Chronic (5) Tobacco abuse Priority: Secondary Status: Chronic (6) COPD exacerbation Priority: Primary Status: Acute - Respiratory Orders Smoking Cessation: Smoking cessation has been advised. For more information, call the [place] Tobacco Quit Line at 4-527-ZTZD-NOW. - Diet/Nutrition Diet/Nutrition Orders: Cardiac - Activity Activity Orders: Ambulate - Services Needed Following services are medically necessary services: Nursing, Home Health Aide, Physical Therapy, Occupational Therapy, Med Social Work - Transfer Medications Home Medications: Albuterol Neb [Proventil Neb] 2.5 mg IH TID 02/19/17 [History] Albuterol Sulfate [Albuterol Inhaler] 2 puff IH Q6H PRN 02/19/17 [History] Alendronate Sodium [Fosamax] 70 mg PO WE 02/19/17 [History] Atorvastatin [Lipitor] 40 mg PO HS 02/19/17 [History] Budesonide/Formoterol 160/4.5 [Symbicort 160/4.5] 2 puff IH BIDR 02/19/17 [ History] Cetirizine HCl [All Day Allergy] 10 mg PO DAILY 02/19/17 [History] Gabapentin [Neurontin] 900 mg PO TID 02/19/17 [History] Melatonin 10 mg PO HS PRN 02/19/17 [History] Omeprazole [PriLOSEC] 20 mg PO DAILY 02/19/17 [History] Oxycodone HCl/Acetaminophen [Percocet 10-325 mg Tablet] 1 tab PO 5XD PRN [History] Theophylline Anhydrous [Oliver-24] 200 mg PO DAILY 02/19/17 [History] Verapamil HCl [Verapamil ER] 180 mg PO DAILY 02/19/17 [History] Apixaban [Eliquis] 5 mg PO BID #60 tablet 03/18/17 [Rx] Sertraline [Zoloft] 150 mg PO DAILY 06/06/17 [History] Clopidogrel [Plavix] 75 mg PO DAILY #30 tablet 06/10/17 [Rx] Metoprolol [Lopressor] 50 mg PO BID #120 tablet 06/10/17 [Rx] Sucralfate [Carafate] 1 gm PO TIDWM #21 udc 06/10/17 [Rx] Diclofenac Sodium [Voltaren] 2 gm TP BID 07/12/17 [History] Nicotine Polacrilex [Nicotine Lozenge] 2 mg BC Q2H PRN 07/12/17 [History] hydroCHLOROthiazide [Hydrochlorothiazide] 12.5 mg PO DAILY 07/12/17 [History] Megestrol Acetate [Megace] 40 mg PO DAILY 30 Days #30 tablet 07/14/17 [Rx] predniSONE [PredniSONE] 40 mg PO DAILY #6 tablet 07/14/17 [Rx] Allergies/Adverse Reactions: 3 Allergy/AdvReac Type Severity Reaction Status Date / Time tiotropium Allergy Rash Verified 03/15/16 22:23 [From Spiriva with HandiHaler] bee stings Allergy Anaphylaxis Uncoded 07/22/17 12:51 Certification: Further, I certify that my clinical findings support that this patient is homebound (i.e. absences from home require considerable and taxing effort and are for medical reasons or buddhism services or infrequently or short duration when for other reasons) because: Homebound Reason: Severity of cardiac or pulmonary status limits activity tolerance Attestation: My signature below is to certify that this patient is under my care and that I, or nurse practitioner, or a physician's food and beverage assistant manager working with me, has a face-to -face encounter with this patient.
--- NOTE | 2017-07-25 14:23 | Oncology Inp Progress Note ---
Date of Encounter: 07/25/17 Time of Encounter: 14:00 (1) Leukocytosis Status: Chronic Assessment and plan: Mr. Bai has had chronically elevated neutrophil predominant leukocytosis since 2013 which has acutely worsened over most recent hospital stay. No lymphocytosis, no basophilia. Tending lab work shows average WBC count around 15 k/mcL, neutrophil count greatly varies over time anywhere from 9-19 k/mcL. He has had COPD for a number of years and has been on steroids chronically in the past. Currently an everyday smoker. He likely has a leukemoid reaction given his recent COPD exacerbation, in the setting of chronically elevated leukocytosis. With continued monitoring we would expect his WBC counts to return back to baseline. If he does not achieve baseline continued workup for lymphoproliferative disorder would be warranted at that time. His WBC is improving and trending downward today. Hgb stable, he does take Eliquis for cardiac indications. CXR and CT imaging as discussed in HPI, recommended continued annual surveillance per radiology recommendations for scattered subcentimeter nodules. B12, folate, LDH normal; iron low at 21 with 8% saturation, ferritin 557, retic count low. He has started oral iron. Blood smear reviewed per Dr. Ravi, significant for hypersegmented neutrophils. HPI significant for for unintended weight loss, he denies difficulty swallowing. I have arranged for him to have GI consultation on outpatient basis for EGD and potential colonoscopy as well. He has never have a screening colonoscopy, given his low iron counts this may be a reasonable procedure Discussed plan as outlined above with patient and hospitalist team. He will follow up with Dr. Ravi in about 2 weeks for continued blood count monitoring, review of EGD/colonoscopy results. Qualifiers: Leukocytosis type: leukemoid reaction Qualified Code(s): D72.823 - Leukemoid reaction Oncology: Subj Interval history: Mr. Bai is feeling well today. Respiratory symptoms have stabilized. He is planned to discharge home soon. - Constitutional Vitals: Vital Signs Temp Pulse Resp BP Pulse Ox 07/25/17 11:43 97.6 F 78 16 127/85 94 07/25/17 11:08 16 98 07/25/17 08:02 97.8 F 87 18 154/89 99 07/25/17 05:33 98.8 F 82 16 125/84 97 07/24/17 20:03 16 98 07/24/17 19:02 98.9 F 83 16 136/80 98 07/24/17 15:27 97.9 F 87 16 133/67 97 Intake and Output 07/24/17 07/25/17 07/25/17 23:59 07:59 15:59 Intake Total 600 / 600 0 / 0 560 / 560 Output Total 575 / 575 Balance 600 / 600 -575 / -575 560 / 560 Intake: IV Fluids 150 / 150 Levaquin Premix 750mg/150 mL 150 / 150 750 mg In 150 ml @ 100 mls/hr IVPB Q24H [facility] Rx#:[id number] Oral 450 / 450 0 / 0 560 / 560 Output: Urine 575 / 575 Other: Meal Lunch Percent of Meal Consumed 100% General appearance: cooperative, no acute distress, no febrile - Head Head exam: Present: atraumatic - Respiratory Respiratory exam: Present: decreased breath sounds, wheezes - Cardiovascular Cardiovascular exam: Present: RRR, +S1, +S2 - GI/Abdominal GI/Abdominal exam: Present: normal bowel sounds, soft. Absent: tenderness - Extremities Exam Extremities exam: Present: normal inspection. Absent: calf tenderness - Neurological Exam Neurological exam: Present: alert, oriented X3, no focal deficits, strengths equal and symetr throughout - Psychiatric Psychiatric exam: Present: normal affect, normal mood - Skin Skin exam: Present: normal color, warm Oncology: Obj Data - Labs CBC & Chem 7: 07/25/17 02:49 07/25/17 02:49 Consult Discharge Plan - Plan Instructions: Prednisone (By mouth), Levofloxacin (By mouth), Heart Failure (DC ), Atrial Fibrillation (DC), Chronic Obstructive Pulmonary Disease (DC), Sepsis (DC), Chronic Hypertension (DC), Cigarette Smoking and Your Health, Software Test Developer (GEN) Additional Instructions: Follow up with PCP in 3-5 days Follow up with Oncology in 2 weeks Follow up with your privacy director Take medications as prescribed Referrals: Davon Dasilva MD [Partnered Physician] - (requested an appointment the office will call patient at home with appointment date and time) Michael Ravi [Non-Partnered Physician] - 08/08/17 8:30 am [facility],PCP [Primary Care Provider] - 08/01/17 1:30 pm Juan Jose Jaime MD [Partnered Physician] - (requested an appointment for an EGD next week the office will call patient at home with appointment date and time if you have not heard from them by the beginning of next week please call them ) Prescriptions: levoFLOXacin [Levaquin] 750 mg PO DAILY 2 Days #2 tablet predniSONE [PredniSONE] 40 mg PO DAILY 5 Days #10 tablet
[2017-07-25] MEDS ORDERED: levoFLOXacin 750 MG TABLET PO SCH (18:00)
--- NOTE | 2017-07-25 19:27 | Electrocardiograph Report ---
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
--- NOTE | 2017-07-25 19:38 | Electrocardiograph Report ---
[place] [id number] Test Date: 2017-07-22 Pat Name: Emmanuel Bai Department: 102 Room: 2NE21 Gender: M Change Management Lead: : 1950 Requested By: Jag Wagner Order Number: [id number] Reading MD: Vinayak Summers MD Measurements Intervals [place] Rate: 126 P: ID: 0 QRS: 86 QRSD: 92 T: 79 QT: 296 QTc: 371 Interpretive Statements ATRIAL FIBRILLATION WITH RAPID VENTRICULAR RESPONSE MINIMAL VOLTAGE CRITERIA FOR LVH Electronically Signed On 07-25-2017 19:37:08 EST by Vinayak Summers MD
--- NOTE | 2017-07-25 19:44 | Electrocardiograph Report ---
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
[2017-07-26] MEDS ORDERED: (Alendronate Sodium [Fosamax] 70 MG) PO SCH (06:30)
== END 2017-07-25 16:59 | disposition home health service (06) | DRG 191 ==
LOC: EMEROO 11:16 → 2NENU 11:16 → SUATTDRO 17:23
PROVIDERS: ADMIT Internal Medicine; ATTEND Internal Medicine

== ENCOUNTER 2017-08-07 15:23 | Inpatient (IN) ==
[2017-08-07] MEDS ORDERED: Ipratropium/Albuterol Neb 3 ML IH ONE (15:46)
[2017-08-07] MEDS ORDERED: methylPREDNISolone 125 MG/2 ML VIAL IVP ONE (15:46)
--- NOTE | 2017-08-07 15:58 | Emergency Department Note ---
Disposition Clinical Impression: Multifocal atrial tachycardia, Acute exacerbation of chronic obstructive airways disease Congestive heart failure Qualifiers: Heart failure type: unspecified Heart failure chronicity: unspecified Qualified Code(s): I50.9 - Heart failure, unspecified Disposition: Admitted As Inpatient Condition: Fair Time of Disposition: 18:26 SOB HPI - General Chief Complaint: ED Shortness of Breath/Dyspnea Stated Complaint: LAILA,diaphoresis,Weight loss Time Seen by Provider: 08/07/17 15:46 Source: patient, family Limitations: no limitations Nursing Notes Reviewed: Yes Vital Signs Reviewed: Yes - History of Present Illness 67-year-old male history of COPD, A. fib, anticoagulated on Eliquis plantar shortness of breath, he was recently discharged for COPD exacerbation, given steroids, his chronic elevated white blood cell count he says, he is brought in by EMS as he is more short of breath, requiring oxygen at all times, he states that when he was discharged before he did not have oxygen requirement except for when necessary. But thinks that he needs oxygen all the time. He said worsening productive cough. Patient reports intermittent low-grade fevers, cough congestion and wheezing. He reports 3 out of 10 worsening chest pain with inspiration. Pt Subjective Complaint: shortness of breath Onset (ago): hour(s) Context: occurred during exertion Severity: moderate Consistency/Duration: intermittent Known history of: COPD, asthma Associated symptoms: Reports: wheezing. Denies: chest pain, pain with inspiration, fever, cough, orthopnea, lower extremity pain - Related Data Home Medications Medication Instructions Recorded Confirmed Albuterol Neb [Proventil Neb] 2.5 mg IH TID 02/19/17 08/07/17 Albuterol Sulfate [Albuterol 2 puff IH Q6H PRN 02/19/17 08/07/17 Inhaler] Alendronate Sodium [Fosamax] 70 mg PO WE 02/19/17 08/07/17 Atorvastatin [Lipitor] 40 mg PO HS 02/19/17 08/07/17 Budesonide/Formoterol 160/4.5 2 puff IH BIDR 02/19/17 08/07/17 [Symbicort 160/4.5] Cetirizine HCl [All Day Allergy] 10 mg PO DAILY 02/19/17 08/07/17 Gabapentin [Neurontin] 900 mg PO TID 02/19/17 08/07/17 Omeprazole [PriLOSEC] 20 mg PO DAILY 02/19/17 08/07/17 Oxycodone HCl/Acetaminophen 1 tab PO 5XD PRN 02/19/17 08/07/17 [Percocet 10-325 mg Tablet] Theophylline Anhydrous [Oliver-24] 200 mg PO DAILY 02/19/17 08/07/17 Verapamil HCl [Verapamil ER] 180 mg PO DAILY 02/19/17 08/07/17 Sertraline [Zoloft] 150 mg PO DAILY 06/06/17 08/07/17 hydroCHLOROthiazide 12.5 mg PO DAILY 07/12/17 08/07/17 [Hydrochlorothiazide] Metoprolol [Lopressor] 25 mg PO BID 08/07/17 08/07/17 Multivitamin [One Daily 1 each PO DAILY 08/07/17 08/07/17 Multivitamin] Potassium Chloride [K-Tab ER] 10 meq PO DAILY 08/07/17 predniSONE [PredniSONE] 10 mg PO DAILY 08/07/17 08/07/17 Previous Rx's Medication Instructions Recorded Apixaban [Eliquis] 5 mg PO BID #60 tablet 03/18/17 Clopidogrel [Plavix] 75 mg PO DAILY #30 tablet 06/10/17 Allergies Allergy/AdvReac Type Severity Reaction Status Date / Time tiotropium Allergy Rash Verified 08/07/17 15:42 [From Spiriva with HandiHaler] bee stings Allergy Anaphylaxis Uncoded 08/07/17 15:42 All systems ED: reviewed and negative except as stated. Review of Systems: As Per HPI Constitutional: Reports: fever, chills Eyes: Denies: eye pain ENT ED: Denies: ear pain, throat pain Cardiovascular: Reports: chest pain Respiratory: Reports: as per HPI, cough, dyspnea, wheezes. Denies: hemoptysis Gastrointestinal: Denies: abdominal pain Genitourinary: Denies: urgency Musculoskeletal: Denies: back pain Integumentary: Denies: rash Neurological: Denies: headache Past Medical History - Past Medical History Attestation: Yes The following information was validated with the patient. Source: patient Medical history: Reports: atrial fibrillation, COPD, fibromyalgia, GERD, hyperlipidemia, hypertension, myocardial infarction Surgical history: Reports: appendectomy, other Psychiatric history: Reports: anxiety, depression - Social History Smoking Status: Current every day smoker Smokeless Tobacco Status: Yes Alcohol use: Reports: none Drug use: Reports: none Physical Exam Constitutional: Thin elderly male, Moderate respiratory distress Neck: normal inspection, neck is supple, no JVD Resp: Diffuse coarse inspiratory and expiratory wheezes. CV: RRR, no murmurs/gallops/rubs, S1 and S2 heard Extremity: +2 bilateral radial and posterial tibial pulses, S1 pitting edema bilaterally GI: normal inspection, Soft, NTND, no peritoneal signs, no palpable abdominal aortic aneurysm Back: normal inspection, no tenderness to palpation Neuro: A&O3, no gross motor or sensory deficits bilaterally MSK: normal inspection, bilateral UE and LE with normal ROM Skin: No rashes, skin warm, dry, intact - General Limitations: no limitations General appearance: alert Course Course Narrative: Chronic COPD or, I think may need long-term oxygen, and daily oxygen throughout the day, it worsening symptoms 5-6 days after his discharge and is bouncing back to emergency department for worsening shortness of breath, 3 duo nebs were given, at after evaluation the patient still had coarse breath sounds, and a 5 mL of albuterol was also added, patient then went into a tachycardic arrhythmia , which appears to be multifocal atrial tachycardia on repeat EKG. She was symptomatically care, as for diuresis given that the patient has some lower sternal edema, elevated BMP worsening his baseline. admitted to [facility] Vital Signs Temperature 97.9 F 08/07/17 15:37 Pulse Rate 95 08/07/17 15:37 Respiratory Rate 32 08/07/17 15:37 Blood Pressure 121/75 08/07/17 15:37 O2 Sat by Pulse Oximetry 94 08/07/17 15:37 Temperature 98.8 F 08/08/17 15:11 Pulse Rate 114 08/08/17 18:55 Respiratory Rate 22 08/08/17 19:26 Blood Pressure 111/67 08/08/17 18:55 O2 Sat by Pulse Oximetry 93 08/08/17 19:26 Oxygen Delivery Oxygen Delivery Nasal Cannula Shortness of Breath/Dyspnea - Differential Diagnosis Likely: acute exacerbation of chronic obstructive airways disease, congestive heart failure, pneumonia, pulmonary embolism - Medical Records Medical records reviewed: Yes I reviewed the patient's medical records. - Lab Data Lab results reviewed: Yes I reviewed the patient's lab results. Result diagrams: 08/08/17 03:34 08/08/17 03:34 Lab Results 08/07/17 08/07/17 08/07/17 Range/Units 15:50 15:50 15:50 WBC 19.0 H (4.3-11.1) K/mcL RBC 4.61 (4.19-5.50) M/mcL Hgb 11.6 L (12.9-16.9) g/dL Hct 38.5 (37.5-50.1) % MCV 83.5 (83.0-100.0) fL MCH 25.2 L (28.0-33.3) pg MCHC 30.1 L (31.6-35.5) g/dL RDW 18.5 H (11.5-14.5) % Plt Count 525 H (140-400) K/mcL MPV 9.0 L (9.4-12.4) fL Immature Gran % 0.9 (0-4) % Seg Neutrophils % 75.2 % Lymphocytes % 15.8 % Monocytes % 7.2 % Eosinophils % 0.7 % Basophils % 0.2 % Neutrophils # 14.3 H (1.6-8.9) K/mcL Lymphocytes # 3.0 (0.6-4.6) K/mcL Monocytes # 1.4 H (0.0-1.3) K/mcL Eosinophils # 0.1 (0.0-0.6) K/mcL Basophils # 0.0 (0.0-0.2) K/mcL Sodium 138 (136-145) mEq/L Potassium 4.0 (3.5-5.1) mEq/L Chloride 100 (98-107) mEq/L Carbon Dioxide 29 (23-29) mEq/L BUN 19 (8-23) mg/dL Creatinine 0.88 (0.70-1.30) mg/dL Est GFR ( Amer) > 60 (> 60) Est GFR (Non-Af Amer) > 60 (> 60) BUN/Creatinine Ratio 22 (6-26) Glucose 103 (70-105) mg/dL Calculated Osmolality 289 (280-300) Lactic Acid (0.5-2.2) mmol/L Calcium 10.1 (8.6-10.3) mg/dL Troponin I < 0.03 (< 0.04) ng/mL B-Natriuretic Peptide (Less than 100) pg/mL 08/07/17 08/07/17 Range/Units 15:50 16:24 WBC (4.3-11.1) K/mcL RBC (4.19-5.50) M/mcL Hgb (12.9-16.9) g/dL Hct (37.5-50.1) % MCV (83.0-100.0) fL MCH (28.0-33.3) pg MCHC (31.6-35.5) g/dL RDW (11.5-14.5) % Plt Count (140-400) K/mcL MPV (9.4-12.4) fL Immature Gran % (0-4) % Seg Neutrophils % % Lymphocytes % % Monocytes % % Eosinophils % % Basophils % % Neutrophils # (1.6-8.9) K/mcL Lymphocytes # (0.6-4.6) K/mcL Monocytes # (0.0-1.3) K/mcL Eosinophils # (0.0-0.6) K/mcL Basophils # (0.0-0.2) K/mcL Sodium (136-145) mEq/L Potassium (3.5-5.1) mEq/L Chloride (98-107) mEq/L Carbon Dioxide (23-29) mEq/L BUN (8-23) mg/dL Creatinine (0.70-1.30) mg/dL Est GFR ( Amer) (> 60) Est GFR (Non-Af Amer) (> 60) BUN/Creatinine Ratio (6-26) Glucose (70-105) mg/dL Calculated Osmolality (280-300) Lactic Acid 1.3 (0.5-2.2) mmol/L Calcium (8.6-10.3) mg/dL Troponin I (< 0.04) ng/mL B-Natriuretic Peptide 268 H (Less than 100) pg/mL - Radiology Data Radiology results reviewed: Yes I reviewed the patient's radiology results. Chest X-Ray 08/07/17 15:46 IMPRESSION: 1. No significant change. D/ / Geoff Reyes MD / Geoff Reyes MD Interpreting Provider: Geoff Reyes MD - EKG Data EKG attestation: Yes I reviewed and interpreted this EKG. EKG shows normal: Reports: sinus rhythm Rate: Reports: normal Rhythm: Reports: NSR (81 bpm HI interval 134 curiosity [address] segment elevations or depressions. [place],) Interpretation: Reports: nonspecific ST-T wave changes, other (Repeat EKG shows rate of 139 QRS 95, irregular P waves, suggestive of multifocal atrial tachycardia with lateral ischemia and V4 V5.) - Core Measures AMI Core Measures Followed: Yes Attestation Statement - Attestation Attestation: I, Chris Mason, examined this patient and my medical decision-making was reviewed with the SCALE EXPERT/PA/Advanced Practice Nurse/Resident Physician. I agree with the documented findings, disposition and treatment plan as described except to the extent set forth below. 67-year-old male presents emergency Department with concerns of increased difficulty breathing. Patient states he is recently admitted to the hospital for similar symptoms which were diagnosed as a COPD exacerbation. Patient denies missing any of his medications. Patient is diaphoretic and hypotensive during the initial evaluation. This improved with rest in the emergency department. had an elevated white blood cell count however his chest x- ray did not show it acute change and he was afebrile. Initial troponin negative. EKG did not show evidence of STEMI. Patient comfortable with the plan for admission to the hospital for further care and evaluation.
[2017-08-07 16:15] LABS: Basophils % 0.2 %; Eosinophils # 0.1 K/mcL (0.0-0.6); Eosinophils % 0.7 %; Hematocrit 38.5 % (37.5-50.1); Hemoglobin 11.6 g/dL (12.9-16.9); Immature Granulocytes % 0.9 % (0-4); Lymphocytes % 15.8 %; Mean Corpuscular HGB Conc 30.1 g/dL (31.6-35.5); Mean Corpuscular Hemoglobin 25.2 pg (28.0-33.3); Mean Corpuscular Volume 83.5 fL (83.0-100.0); Monocytes # 1.4 K/mcL (0.0-1.3); Monocytes % 7.2 %; Neutrophils # 14.3 K/mcL (1.6-8.9); Platelet Count 525 K/mcL (140-400); Red Blood Count 4.61 M/mcL (4.19-5.50); Red Cell Distribution Width 18.5 % (11.5-14.5); Segmented Neutrophils % 75.2 %
[2017-08-07 16:33] LABS: BUN/Creatinine Ratio 22 (6-26); Blood Urea Nitrogen 19 mg/dL (8-23); Calcium 10.1 mg/dL (8.6-10.3); Carbon Dioxide 29 mEq/L (23-29); Chloride 100 mEq/L (98-107); Glucose 103 mg/dL (70-105); Osmolality,Calculated 289 (280-300); Sodium 138 mEq/L (136-145); eGFR For Non-African Americans > 60 (> 60)
[2017-08-07] MEDS ORDERED: Albuterol 2.5 MG/3 ML NEBULIZER IH ONE (16:56)
[2017-08-07] MEDS ORDERED: Furosemide 40 MG/4 ML VIAL IVP ONE (17:38)
[2017-08-07] MEDS ORDERED: Naloxone 0.4 MG/ML INJ IVP PRN (20:33)
[2017-08-07 20:47] LABS: ABG Base Excess 4 mEq/L (-2 to 3); ABG HCO3 27 mEq/L (21-27); ABG Oxygen Saturation 97 % (95-98); ABG PCO2 35 mmHg (35-45); ABG PH 7.49 pH Units (7.32-7.45); ABG PO2 84 mmHg (85-104); ABG TCO2 28 mEq/L (20-26)
--- NOTE | 2017-08-07 20:50 | Internal Med History&Physical ---
Date of Encounter: 08/07/17 Time of Encounter: 20:45 Assessment and Plan (1) Acute exacerbation of chronic obstructive airways disease Current visit: No Status: Resolved 67/male Known to have a background history of for COPD. Has multiple previous admissions for COPD exacerbation. Admitted today due to the worsening oxygen demand. On examination: Barrel-shaped chest, Using accessory muscles of respiration/notable intercostal retraction/Catracho nasi Polyphonic wheezing noted. Cavernous breath sounds in infraclavicular areas bilaterally. Irregularly irregular heart rate Assessment: Acute exacerbation of COPD is likely precipitating cause for atrial fibrillation with rapid ventricular rate. Chronically elevated WBC. Advanced stage IV GOLD COPD Plan: Admit as inpatient. Intravenous ceftriaxone 1 g every 24 hours. Intravenous and azithromycin 500 mg every 24 hours Intravenous salmeterol 40 mg every 6 hours Inhaled bronchodilators every 4 hours. Intravenous Cardizem 5 mg per hour to titrate heart rate between 60 and 90. Resume home medications. Anticoagulation:Tr Couch have examined this patient in room number 3B34 Patient's RN was present with me. Plan of care explained to the patient. (2) Atrial fibrillation with RVR Current visit: No Status: Acute See above (3) CAD (coronary artery disease) Current visit: No Status: Chronic Patient has extensive coronary artery disease. Patient underwent cardiac catheterization in the recent past. Patient is presently on Plavix. Qualifiers: Coronary Disease-Associated Artery/Lesion type: [place] artery [place] vs. transplanted heart: [place] heart Associated angina: without angina Qualified Code(s): I25.10 - Atherosclerotic heart disease of [place] coronary artery without angina pectoris (4) HLD (hyperlipidemia) Current visit: No Status: Chronic Resume home medication Qualifiers: Hyperlipidemia type: unspecified Qualified Code(s): E78.5 - Hyperlipidemia , unspecified (5) HTN (hypertension) Current visit: No Status: Chronic Resume home medication Qualifiers: Hypertension type: essential hypertension Qualified Code(s): I10 - Essential (primary) hypertension (6) DVT prophylaxis Current visit: No Status: Acute In view of the critically ill patient he needs duel DVT prophylaxis. Tr/JERMAINE Medical decision making: This patient has a moderate to severe risk of worsening in spite of being on appropriate medication due to the underlying chronic comorbid conditions. Internal Medicine - H&P: HPI Chief complaint: Shortness of breath Admitted From: Emergency Dept Plans for Post Hospital Care: Home History of present illness: PCP: Dr Delores Le PMH: Coronary artery disease, steroid-dependent COPD, paroxysmal atrial fibrillation, fibromyalgia, hypertension, hyperlipidemia, GERD, chronically elevated WBC History of present medical illness: Patient was complaining of worsening shortness of breath for the past 48 hours. Patient noted that she is oxygen demand has persistently getting worse and he needs to be on oxygen for most of the day. Patient was also experiencing worsening coughing along with the change in the color of sputum. Due to his persistent worsening symptoms patient decided to call [facility] for [facility] evaluation. [facility] evaluated patient at his home and brought to the emergency room. Patient denies abdominal pain, nausea, vomiting, dizziness or diarrhea. Patient does have a cold clammy extremities and diaphoresis. Patient was also complaining of palpitation when I examined this patient Workup in the emergency room: Patient was evaluated in the emergency room. Basic labs were drawn. Noted that his white blood cell count is 19,000 which is persistent with his previous numbers. CTA chest shows bilateral bullous disease which did not change from the previous imaging. Patient was given steroids/bronchodilators in the emergency room. Reason for admission: Acute exacerbation of COPD which requires intravenous antibiotics/steroids and close respiratory monitoring Past Med Surg Social Fam HX - Past Medical History Medical history: atrial fibrillation, COPD, fibromyalgia, GERD, hyperlipidemia, hypertension, myocardial infarction Psychiatric history: anxiety, depression - Past Surgical History Surgical History: appendectomy, other - Social History Smoking Status: Current every day smoker Smokeless Tobacco Status: Yes Alcohol use: none Drug use: none - Family History Sister Family Member Ethnicity: Non- Living Status: Still Living Hx Family Cardiac Disorders: Yes (HD) Hx Family Respiratory Disorders: No Hx Family Cancer: Yes (Breast) Hx Family GI Disorders: No Hx Family Endocrine Disorder: No Hx Family Neuromuscular Disorders: No Hx Family Neurologic Disorders: No Hx Family HEENT Disorders: No Hx Family Autoimmune Disorders: No Brother Family Member Ethnicity: Non- Living Status: Still Living Mother Family Member Ethnicity: Non- Living Status: Father Family Member Ethnicity: Non- Living Status: Hx Family Cardiac Disorders: No Hx Family Respiratory Disorders: No Hx Family Cancer: Yes Hx Family Endocrine Disorder: No Internal Medicine - H&P: Meds Albuterol Neb [Proventil Neb] 2.5 mg IH TID 02/19/17 [History] Albuterol Sulfate [Albuterol Inhaler] 2 puff IH Q6H PRN 02/19/17 [History] Alendronate Sodium [Fosamax] 70 mg PO WE 02/19/17 [History] Atorvastatin [Lipitor] 40 mg PO HS 02/19/17 [History] Budesonide/Formoterol 160/4.5 [Symbicort 160/4.5] 2 puff IH BIDR 02/19/17 [ History] Cetirizine HCl [All Day Allergy] 10 mg PO DAILY 02/19/17 [History] Gabapentin [Neurontin] 900 mg PO TID 02/19/17 [History] Omeprazole [PriLOSEC] 20 mg PO DAILY 02/19/17 [History] Oxycodone HCl/Acetaminophen [Percocet 10-325 mg Tablet] 1 tab PO 5XD PRN [History] Theophylline Anhydrous [Oliver-24] 200 mg PO DAILY 02/19/17 [History] Verapamil HCl [Verapamil ER] 180 mg PO DAILY 02/19/17 [History] Apixaban [Eliquis] 5 mg PO BID #60 tablet 03/18/17 [Rx] Sertraline [Zoloft] 150 mg PO DAILY 06/06/17 [History] Clopidogrel [Plavix] 75 mg PO DAILY #30 tablet 06/10/17 [Rx] hydroCHLOROthiazide [Hydrochlorothiazide] 12.5 mg PO DAILY 07/12/17 [History] Metoprolol [Lopressor] 25 mg PO BID 08/07/17 [History] Multivitamin [One Daily Multivitamin] 1 each PO DAILY 08/07/17 [History] Potassium Chloride [K-Tab ER] 10 meq PO DAILY 08/07/17 [History] predniSONE [PredniSONE] 10 mg PO DAILY 08/07/17 [History] 3 Allergy/AdvReac Type Severity Reaction Status Date / Time tiotropium Allergy Rash Verified 08/07/17 15:42 [From Spiriva with HandiHaler] bee stings Allergy Anaphylaxis Uncoded 08/07/17 15:42 All Systems PM: A 10-system review of systems was performed and is negative for pertinent findings except as documented above in the HPI. - Constitutional Constitutional: no chills, no fever(s), no night sweats - EENT Eyes: no change in vision, no discharge, no pain, no photophobia Ears: no ear discharge, no ear pain, no tinnitus Nose, mouth and throat: no dysphagia, no nasal discharge, no neck pain, no sore throat - Cardiovascular Cardiovascular ROS IM: diaphoresis, irregular heart rhythm, palpitations, no chest pain, no dyspnea, no lightheadedness, no syncope - Respiratory Respiratory: cough, dyspnea, wheezing, excessive phlegm production - Gastrointestinal Gastrointestinal: no abdominal pain, no diarrhea, no hematemesis, no hematochezia, no melena, no nausea, no vomiting - Musculoskeletal Musculoskeletal ROS IM: no numbness, no tingling - Integumentary Integumentary IM: no rash, no unusual bruising - Neurological Neurological ROS: no confusion, no convulsions, no focal weakness, no numbness, no tingling, no tremor(s) - Hematologic/Lymphatic Hematologic/Lymphatic: no easy bruising - Constitutional Vitals: Temp Pulse Resp BP Pulse Ox 97.4 F L 95 19 120/76 96 08/07/17 19:41 08/07/17 19:41 08/07/17 19:41 08/07/17 19:41 08/07/17 19:41 General appearance: Present: mild distress, A&O X 3, pleasant, answers questions appropriately - Head Head exam: Present: atraumatic, normocephalic - Eye Eye exam: Present: PERRL, conjuntiva pink, sclera anicteric Pupils: Present: PERRL - Neck Neck exam general surgery: Present: supple, trachea midline. Absent: lymphadenopathy - Respiratory Respiratory exam: Present: CTAB. Absent: accessory muscle use, rales, rhonchi, wheezes - Cardiovascular Cardiovascular exam: Present: RRR, +S1, +S2. Absent: diastolic murmur, gallop, rubs, systolic murmur - GI/Abdominal GI/Abdominal exam: Present: normal bowel sounds, soft, no peritoneal signs. Absent: distended, tenderness - Extremities Exam Extremities exam: Present: warm, radial pulses palpable and symmetrical. Absent : calf tenderness, cyanotic, pedal edema - Neurological Exam Neurological exam: Present: CN II-XII intact, oriented X3, no focal deficits. Absent: pronater drift, facial droop, speech deficit - Skin Skin exam: Present: dry, intact Internal Med - H&P Results - Labs CBC & Chem 7: 08/07/17 15:50 08/07/17 15:50
[2017-08-07] MEDS ORDERED: Azithromycin 500 MG in D5% in Water 250 ML IVPB SCH (21:00)
[2017-08-07] MEDS: cefTRIAXone 1,000 MG in Water for inj. (sterile) 20 ML 10 ML IVPB SCH (21:59)
[2017-08-07] MEDS: Apixaban 5 MG TABLET PO SCH (22:00)
[2017-08-07] MEDS: Gabapentin 300 MG CAPSULE PO SCH (22:00)
[2017-08-07] MEDS: MethylPREDNISolone 40 MG/ML VIAL IVP SCH (23:38)
[2017-08-07] MEDS: Ipratropium/Albuterol Neb 3 ML IH SCH (23:58)
[2017-08-08] MEDS: Ipratropium/Albuterol Neb 3 ML IH SCH ×7 (01:11→23:55)
[2017-08-08 04:19] LABS: Basophils % 0.1 %; Hematocrit 35.7 % (37.5-50.1); Hemoglobin 11.1 g/dL (12.9-16.9); Immature Granulocytes % 0.7 % (0-4); Lymphocytes # 0.7 K/mcL (0.6-4.6); Lymphocytes % 2.9 %; Mean Corpuscular HGB Conc 31.1 g/dL (31.6-35.5); Mean Corpuscular Hemoglobin 25.5 pg (28.0-33.3); Mean Corpuscular Volume 81.9 fL (83.0-100.0); Mean Platelet Volume 9.1 fL (9.4-12.4); Monocytes # 0.5 K/mcL (0.0-1.3); Neutrophils # 23.5 K/mcL (1.6-8.9); Platelet Count 518 K/mcL (140-400); Red Blood Count 4.36 M/mcL (4.19-5.50); Red Cell Distribution Width 18.2 % (11.5-14.5); Segmented Neutrophils % 94.3 %
[2017-08-08 04:23] LABS: INR 1.7
[2017-08-08 04:26] LABS: Activated Partial Thrombo Time 34.5 Seconds (26.0-36.0)
[2017-08-08 04:43] LABS: Alanine Aminotransferase 22 Units/L (7-52); Albumin 3.3 g/dL (3.5-5.7); Albumin/Globulin Ratio 0.8 (1.1-2.2); Alkaline Phosphatase 54 Units/L (34-104); Aspartate Amino Transferase 15 Units/L (13-39); BUN/Creatinine Ratio 27 (6-26); Bilirubin,Total 0.4 mg/dL (0.3-1.0); Blood Urea Nitrogen 22 mg/dL (8-23); Calcium 9.3 mg/dL (8.6-10.3); Carbon Dioxide 28 mEq/L (23-29); Chloride 99 mEq/L (98-107); Chol/HDL Ratio 3.7 (0-4.9); Cholesterol 197 mg/dL (< 200); Globulin 4.4 g/dL (2.4-3.5); Glucose 136 mg/dL (70-105); HDL Cholesterol 53 mg/dL (40-59); LDL Cholesterol,Calculated 121 mg/dL (0-99); Magnesium 1.9 mg/dL (1.6-2.6); Osmolality,Calculated 289 (280-300); Sodium 137 mEq/L (136-145); Total Protein 7.7 g/dL (6.4-8.9); Triglycerides 117 mg/dL (< 150); eGFR For Non-African Americans > 60 (> 60)
[2017-08-08 04:46] LABS: Platelet Estimate Increased (Normal)
[2017-08-08] MEDS: MethylPREDNISolone 40 MG/ML VIAL IVP SCH ×3 (06:11→17:13)
[2017-08-08] MEDS: Verapamil ER (24 HR) 180 MG TABLET.ER PO SCH (09:18)
[2017-08-08] MEDS: Apixaban 5 MG TABLET PO SCH ×2 (09:18→21:27)
[2017-08-08] MEDS: Gabapentin 300 MG CAPSULE PO SCH ×3 (09:18→21:27)
[2017-08-08] MEDS: cefTRIAXone 1,000 MG in Water for inj. (sterile) 20 ML 10 ML IVPB SCH (09:19)
[2017-08-08] MEDS: hydroCHLOROthiazide 25 MG TABLET PO SCH (09:19)
[2017-08-08] MEDS ORDERED: Ipratropium/Albuterol Neb 3 ML ONE (09:30)
--- NOTE | 2017-08-08 16:00 | Internal Med Progress Note ---
Date of Encounter: 08/08/17 Time of Encounter: 15:55 - Assessment and plan (1) COPD exacerbation Current Visit: Yes Status: Acute Assessment and plan: presented with worsening SOB; was recently discharged for similar issue. Chest CTA negative for pulmonary embolism. CXR non-acute. Cont IV ceftriaxone, Rocephin, steroids and breathing treatments. Pulmonology consult (2) Atrial fibrillation with RVR Current Visit: No Status: Acute Assessment and plan: hx known A. fib. EKG with A. fib RVR. Initially rate controlled with cardizem gtt however BP did not tolerate. Now with HRs in low 100s-110. BP remains soft/ borderline. Cont home BB, CCB. Monitor blood pressure and heart rate. Cardiology consulted. Cont eliquis. Give one time dose digoxoin. Resume Cardizem gtt if needed and BP can tolerate. (3) Sepsis Current Visit: No Status: Acute Assessment and plan: meets sepsis criteria with tachycardia, elevated WBC and suspected COPD exacerbation. Tachycardia could be related to a-fib RVR, elevated WBC could be from steroids. Lactic acid normal. Does not appear acutely toxic. Continue IV ATB as noted above. Qualifiers: Sepsis type: sepsis due to unspecified organism Qualified Code(s): A41.9 - Sepsis, unspecified organism (4) CAD (coronary artery disease) Current Visit: No Status: Chronic Assessment and plan: hx CAD. Underwent LHC in the recent past. Cont BB, Plavix. Qualifiers: Coronary Disease-Associated Artery/Lesion type: [place] artery [place] vs. transplanted heart: [place] heart Associated angina: without angina Qualified Code(s): I25.10 - Atherosclerotic heart disease of [place] coronary artery without angina pectoris (5) HTN (hypertension) Current Visit: No Status: Chronic Assessment and plan: per hx. BP soft/borderline. Monitor Qualifiers: Hypertension type: essential hypertension Qualified Code(s): I10 - Essential (primary) hypertension (6) Chronic respiratory failure Current Visit: No Status: Resolved Assessment and plan: per hx. with underlying COPD. On home oxygen at 2 L. Qualifiers: Respiratory failure complication: hypoxia Qualified Code(s): J96.11 - Chronic respiratory failure with hypoxia (7) DVT prophylaxis Current Visit: No Status: Acute Assessment and plan: elquis - Subjective Interval history: Seen and examined at bedside. Patient is due to be, information obtained from chart review and patient report. Still with shortness of breath but overall improved from yesterday he says. No CP. - Constitutional Vitals: Temp Pulse Resp BP Pulse Ox 98.8 F 110 16 95/64 95 08/08/17 15:11 08/08/17 15:11 08/08/17 15:11 08/08/17 15:11 08/08/17 15:11 General appearance: Present: mild distress, A&O X 3, pleasant, answers questions appropriately - Head Head exam: Present: atraumatic, normocephalic - Eye Eye exam: Present: PERRL, conjuntiva pink, sclera anicteric Pupils: Present: PERRL - Neck Neck exam general surgery: Present: supple, trachea midline. Absent: lymphadenopathy - Respiratory Respiratory exam: Present: CTAB, rhonchi, wheezes. Absent: accessory muscle use , rales - Cardiovascular Cardiovascular exam: Present: RRR, +S1, +S2. Absent: diastolic murmur, gallop, rubs, systolic murmur - GI/Abdominal GI/Abdominal exam: Present: normal bowel sounds, soft, no peritoneal signs. Absent: distended, tenderness - Extremities Exam Extremities exam: Present: warm, radial pulses palpable and symmetrical. Absent : calf tenderness, cyanotic, pedal edema - Neurological Exam Neurological exam: Present: CN II-XII intact, oriented X3, no focal deficits. Absent: pronater drift, facial droop, speech deficit - Skin Skin exam: Present: dry, intact Internal Medicine: Result - Labs CBC & Chem 7: 08/08/17 03:34 08/08/17 03:34 Labs: Short CBC 08/08/17 Range/Units 03:34 WBC 24.9 H (4.3-11.1) K/mcL Hgb 11.1 L (12.9-16.9) g/dL Hct 35.7 L (37.5-50.1) % Plt Count 518 H (140-400) K/mcL Neutrophils # 23.5 H (1.6-8.9) K/mcL BMP 08/08/17 03:34 Sodium 137 Potassium 4.0 Chloride 99 Carbon Dioxide 28 BUN 22 Creatinine 0.83 Glucose 136 H Calcium 9.3 Cardiac Enzymes 08/07/17 08/08/17 08/08/17 Range/Units 20:58 03:34 09:04 Troponin I < 0.03 < 0.03 < 0.03 (< 0.04) ng/mL Liver Function 08/08/17 Range/Units 03:34 Total Bilirubin 0.4 (0.3-1.0) mg/dL AST 15 (13-39) Units/L ALT 22 (7-52) Units/L Alkaline Phosphatase 54 (34-104) Units/L Albumin 3.3 L (3.5-5.7) g/dL - ABG Interpretation ABG results: ABG ABG pH 7.49 pH Units (7.32-7.45) H 08/07/17 20:44 ABG pCO2 35 mmHg (35-45) 08/07/17 20:44 ABG pO2 84 mmHg (85-104) L 08/07/17 20:44 ABG O2 Saturation 97 % (95-98) 08/07/17 20:44 PT/INR, D-dimer PT 18.0 Seconds (9.4-12.1) H 08/08/17 03:34 - Impressions Impressions Head CT 08/07/17 20:40 IMPRESSION: No acute intracranial abnormality. D/ / Rico Parry MD / Rico Parry MD Interpreting Provider: Rico Parry MD Consult Discharge Plan - Plan Referrals: Margie Estrella DO [Primary Care Provider] -
[2017-08-08] MEDS ORDERED: *HR* Digoxin 0.5 MG/2 ML AMPUL IVP ONE (16:38)
[2017-08-08] MEDS: *HR* OxyCODONE/APAP 10/325 TABLET PO PRN ×2 (18:05→21:30)
[2017-08-08 18:20] LABS: Adenovirus Not Detected (Not Detect); Bordetella Pertussis Not Detected (Not Detect); Chlamydophila pneumoniae Not Detected (Not Detect); Coronavirus 229E Not Detected (Not Detect); Coronavirus HKU1 Not Detected (Not Detect); Coronavirus NL63 Not Detected (Not Detect); Coronavirus OC43 Not Detected (Not Detect); Human Metapneumovirus Not Detected (Not Detect); Human Rhinovirus/Enterovirus Not Detected (Not Detect); Influenza A Subtype 2009 H1 Not Detected (Not Detect); Influenza A Untypeable Not Detected (Not Detect); Influenza B Not Detected (Not Detect); Mycoplasma pneumoniae Not Detected (Not Detect); Parainfluenza Virus 1 Not Detected (Not Detect); Parainfluenza Virus 2 Not Detected (Not Detect); Parainfluenza Virus 3 Not Detected (Not Detect); Parainfluenza Virus 4 Not Detected (Not Detect); Respiratory Syncytial Virus Not Detected (Not Detect)
[2017-08-08] MEDS ORDERED: Levalbuterol Neb 1.25 MG/3 ML ONE (19:08)
--- NOTE | 2017-08-08 20:11 | Event Note ---
Date of Encounter: 08/08/17 Time of Encounter: 19:30 Called by RN to evaluate patient in AFib with RVR. He was admitted for COPD exacerbation/CAP and has P-A-Fib. He's not been rate controlled all day and is on a Cardizem drip at 10 and Metoprolol 25 PO BID. He had one dose of Dig 0.5 mg PO earlier in the day. He's maintaining an SpO2 > 94% on L/min. His CXR shoes a possible new RUL consolidation vs mass. His ABG is pending. He will be moved to when a bed is available and titrate the Cardizem drip to a HR < 100 bpm. His Metoprolol dose was increased to 50 PO BID. His BP is stable. We will continue to follow throughout the night.
[2017-08-08] MEDS: Levofloxacin 750 MG/150 ML 750 MG/150 ML BAG IVPB SCH (20:25)
[2017-08-08] MEDS ORDERED: Levalbuterol 1 PUFF INHALER IH SCH (22:00)
[2017-08-09] MEDS: MethylPREDNISolone 40 MG/ML VIAL IVP SCH ×4 (00:52→16:28)
[2017-08-09] MEDS: Ipratropium/Albuterol Neb 3 ML IH SCH ×6 (03:42→23:39)
[2017-08-09] MEDS ORDERED: 0.9 % Sodium Chloride 500 ML ONE (06:11)
[2017-08-09 06:51] LABS: Hematocrit 27.5 % (37.5-50.1); Hemoglobin 8.6 g/dL (12.9-16.9); Mean Corpuscular HGB Conc 31.3 g/dL (31.6-35.5); Mean Corpuscular Hemoglobin 25.2 pg (28.0-33.3); Mean Corpuscular Volume 80.6 fL (83.0-100.0); Platelet Count 396 K/mcL (140-400); Red Blood Count 3.41 M/mcL (4.19-5.50); Red Cell Distribution Width 17.8 % (11.5-14.5)
[2017-08-09 07:23] LABS: BUN/Creatinine Ratio 35 (6-26); Blood Urea Nitrogen 36 mg/dL (8-23); Calcium 8.5 mg/dL (8.6-10.3); Carbon Dioxide 29 mEq/L (23-29); Chloride 99 mEq/L (98-107); Glucose 130 mg/dL (70-105); Osmolality,Calculated 290 (280-300); Potassium 4.2 mEq/L (3.5-5.1); Sodium 135 mEq/L (136-145); eGFR For Non-African Americans > 60 (> 60)
[2017-08-09] MEDS: Gabapentin 300 MG CAPSULE PO SCH ×3 (07:44→21:35)
[2017-08-09] MEDS: hydroCHLOROthiazide 25 MG TABLET PO SCH (07:44)
[2017-08-09] MEDS: Apixaban 5 MG TABLET PO SCH (07:44)
[2017-08-09] MEDS: *HR* OxyCODONE/APAP 10/325 TABLET PO PRN ×3 (07:45→22:12)
[2017-08-09] MEDS: Verapamil ER (24 HR) 180 MG TABLET.ER PO SCH (07:45)
--- NOTE | 2017-08-09 07:58 | Internal Med Progress Note ---
Date of Encounter: 08/09/17 Time of Encounter: 08:10 - Assessment and plan (1) Acute and chronic respiratory failure Current Visit: Yes Status: Acute Assessment and plan: Patient continues to have acute on chronic respiratory failure with acute worsening respiratory distress. Continue bronchodilators. We will place patient on Xopenex to minimize effect of beta agonists on heart rate. Continue BiPAP as needed if patient tolerates. We will consult pulmonology for further recommendations. Chest x-ray done yesterday shows dense opacification in right upper lobe concerning for interval filling of large cavity. This could be causing patient's acute respiratory distress. He remains at high risk for complications. CODE STATUS has been changed to DNR/DNI per patient wishes. Prognosis is guarded. Qualifiers: Respiratory failure complication: hypoxia Qualified Code(s): J96.21 - Acute and chronic respiratory failure with hypoxia (2) Sepsis Current Visit: Yes Status: Suspected Assessment and plan: Continue broad-spectrum IV antibiotics. Patient is on vancomycin, Zosyn and Levaquin. WBC count trending up. Could be related to steroid use. We will continue to monitor blood counts, follow blood cultures. Qualifiers: Sepsis type: methicillin resistant Staphylococcus aureus Qualified Code(s) : A41.02 - Sepsis due to Methicillin resistant Staphylococcus aureus (3) Atrial fibrillation with RVR Current Visit: Yes Status: Acute Assessment and plan: Patient was placed on intravenous Cardizem drip last night but developed hypotension. His metoprolol dosage was also increased. He is now on 5 mg/h of IV diltiazem. His blood pressure has improved but we will continue to monitor closely. Wean off diltiazem drip as tolerated. (4) CAD (coronary artery disease) Current Visit: Yes Status: Chronic Assessment and plan: Troponins remain negative. No chest pain. Recent PCI with drug-eluting stent in May. Qualifiers: Coronary Disease-Associated Artery/Lesion type: [place] artery [place] vs. transplanted heart: [place] heart Associated angina: without angina Qualified Code(s): I25.10 - Atherosclerotic heart disease of [place] coronary artery without angina pectoris (5) COPD exacerbation Current Visit: Yes Status: Acute Assessment and plan: Continue bronchodilators and O2 supplementation. BiPAP as needed. (6) HTN (hypertension) Current Visit: Yes Status: Chronic Assessment and plan: Monitor blood pressure closely. Patient becoming hypotensive with use of Cardizem. Will adjust antihypertensives accordingly. Hold antihypertensives if systolic blood pressure less than 100. Qualifiers: Hypertension type: essential hypertension Qualified Code(s): I10 - Essential (primary) hypertension (7) Pneumonia Current Visit: Yes Status: Suspected Assessment and plan: Continue broad-spectrum antibiotics. Await culture results. Qualifiers: Pneumonia type: due to unspecified organism Laterality: unspecified laterality Lung location: unspecified part of lung Qualified Code(s): J18.9 - Pneumonia, unspecified organism (8) DVT prophylaxis Current Visit: Yes Status: Acute Assessment and plan: Patient is on eliquis. However, given the rapid opacification of cavitary lesion in the lung, concerning for bleed. Hold Eluquis per pulmonology recommendations. - Subjective Interval history: Patient complaining of shortness of breath this morning. Was placed on BiPAP temporarily but has asked to remove it. Continues to be dyspneic and tachypneic. Denies any chest pain. No palpitations. Denies any dizziness or lightheadedness. Discussed CODE STATUS with patient and he wishes to be DNR and DNI. - Constitutional Vitals: Temp Pulse Resp BP Pulse Ox 97.7 F 111 20 123/77 96 08/09/17 07:36 08/09/17 07:36 08/09/17 07:39 08/09/17 03:43 08/09/17 07:39 General appearance: Present: cooperative, A&O X 3, severe distress, answers questions appropriately - Eye Eye exam: Present: EOMI, PERRL, conjuntiva pink, sclera anicteric - Neck Neck exam general surgery: Present: supple, trachea midline. Absent: lymphadenopathy - Respiratory Respiratory exam: Present: accessory muscle use, decreased breath sounds ( Bilaterally diminished), prolonged expiratory phase, respiratory distress, rhonchi, wheezes. Absent: rales - Cardiovascular Cardiovascular exam: Present: RRR, +S1, +S2. Absent: diastolic murmur, gallop, rubs, systolic murmur - GI/Abdominal GI/Abdominal exam: Present: normal bowel sounds, soft, no peritoneal signs. Absent: distended, tenderness - Extremities Exam Extremities exam: Present: warm, radial pulses palpable and symmetrical. Absent : calf tenderness, cyanotic, pedal edema - Neurological Exam Neurological exam: Present: alert, CN II-XII intact, oriented X3, no focal deficits. Absent: facial droop, speech deficit - Skin Skin exam: Present: dry, intact Internal Medicine: Result - Labs CBC & Chem 7: 08/09/17 06:38 08/09/17 06:38 Labs: Short CBC 08/09/17 Range/Units 06:38 WBC 25.6 H (4.3-11.1) K/mcL Hgb 8.6 L D (12.9-16.9) g/dL Hct 27.5 L (37.5-50.1) % Plt Count 396 (140-400) K/mcL BMP 08/09/17 06:38 Sodium 135 L Potassium 4.2 Chloride 99 Carbon Dioxide 29 BUN 36 H Creatinine 1.02 Glucose 130 H Calcium 8.5 L Cardiac Enzymes 08/08/17 08/08/17 Range/Units 09:04 18:59 Troponin I < 0.03 < 0.03 (< 0.04) ng/mL - ABG Interpretation ABG results: ABG ABG pH 7.49 pH Units (7.32-7.45) H 08/07/17 20:44 ABG pCO2 35 mmHg (35-45) 08/07/17 20:44 ABG pO2 84 mmHg (85-104) L 08/07/17 20:44 ABG O2 Saturation 97 % (95-98) 08/07/17 20:44 PT/INR, D-dimer PT 18.0 Seconds (9.4-12.1) H 08/08/17 03:34 - Impressions Impressions Chest X-Ray 08/08/17 19:27 IMPRESSION: Dense opacification in the right upper lobe which likely represents interval filling of a large cavitary lesion described on prior CT. Rapid interval change may represent superimposed infection. Pulmonary follow-up recommended with consideration for bronchoscopy. D/ / Geoff Mcduffie MD / Geoff Mcduffie MD Interpreting Provider: Geoff Mcduffie MD Consult Discharge Plan - Plan Referrals: Margie Estrella DO [Primary Care Provider] -
[2017-08-09] MEDS: Levofloxacin 750 MG/150 ML 750 MG/150 ML BAG IVPB SCH (08:14)
--- NOTE | 2017-08-09 10:02 | Pulmonology Consult Note ---
Date of Encounter: 08/09/17 Time of Encounter: 08:00 Assessment and Plan (1) Cough with hemoptysis Current Visit: Yes Status: Acute Patient is having worsening hemoptysis for past 2 days with rapid fluid collection in the bullae more looks like bleeding with back ground of Eliquis and Plavix . Will hold of eliquis as it is for A FIB . Plavix cannot be stopped because he has Left main CHENG , high chance of in stent thrombosis V/Q mismatch is stable will hold off Bronchoscopy as it wont benefit if the bleeding more inside the bullae . unlikely the bullae got infected within one day . (2) Acute and chronic respiratory failure Current Visit: Yes Status: Acute To continue O2 supplementation with SPO2 around 92% . Will need BIPAP over night and Prn during the day Qualifiers: Respiratory failure complication: hypoxia Qualified Code(s): J96.21 - Acute and chronic respiratory failure with hypoxia (3) COPD exacerbation Current Visit: Yes Status: Acute To continue bronchodilators and steroids (4) Congestive heart failure Current Visit: Yes Status: Acute Management according to cardiology Qualifiers: Heart failure type: unspecified Heart failure chronicity: unspecified Qualified Code(s): I50.9 - Heart failure, unspecified (5) Pneumonia Current Visit: Yes Status: Suspected CT chest some infltrates around the bullae with possible infection of bullae agree with Vancomycin and Zosyn which would have good penetration to lung cavity . 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 Had some BIPAP in the morning , pulmonary was consulted because of CXR show rapid accumulation of fluid in the cavity . Past Med Surg Social Fam HX - Past Medical History Medical history: atrial fibrillation, COPD, fibromyalgia, GERD, hyperlipidemia, hypertension, myocardial infarction Psychiatric history: anxiety, depression - Past Surgical History Surgical History: appendectomy, other - Social History Smoking Status: Current every day smoker Smokeless Tobacco Status: Yes Alcohol use: none Drug use: none - Family History Sister Family Member Ethnicity: Non- Living Status: Still Living Hx Family Cardiac Disorders: Yes (HD) Hx Family Respiratory Disorders: No Hx Family Cancer: Yes (Breast) Hx Family GI Disorders: No Hx Family Endocrine Disorder: No Hx Family Neuromuscular Disorders: No Hx Family Neurologic Disorders: No Hx Family HEENT Disorders: No Hx Family Autoimmune Disorders: No Brother Family Member Ethnicity: Non- Living Status: Still Living Mother Family Member Ethnicity: Non- Living Status: Father Family Member Ethnicity: Non- Living Status: Hx Family Cardiac Disorders: No Hx Family Respiratory Disorders: No Hx Family Cancer: Yes Hx Family Endocrine Disorder: No Medications and Allergies Albuterol Neb [Proventil Neb] 2.5 mg IH TID 02/19/17 [History] Albuterol Sulfate [Albuterol Inhaler] 2 puff IH Q6H PRN 02/19/17 [History] Alendronate Sodium [Fosamax] 70 mg PO WE 02/19/17 [History] Atorvastatin [Lipitor] 40 mg PO HS 02/19/17 [History] Budesonide/Formoterol 160/4.5 [Symbicort 160/4.5] 2 puff IH BIDR 02/19/17 [ History] Cetirizine HCl [All Day Allergy] 10 mg PO DAILY 02/19/17 [History] Gabapentin [Neurontin] 900 mg PO TID 02/19/17 [History] Omeprazole [PriLOSEC] 20 mg PO DAILY 02/19/17 [History] Oxycodone HCl/Acetaminophen [Percocet 10-325 mg Tablet] 1 tab PO 5XD PRN [History] Theophylline Anhydrous [Oliver-24] 200 mg PO DAILY 02/19/17 [History] Verapamil HCl [Verapamil ER] 180 mg PO DAILY 02/19/17 [History] Apixaban [Eliquis] 5 mg PO BID #60 tablet 03/18/17 [Rx] Sertraline [Zoloft] 150 mg PO DAILY 06/06/17 [History] Clopidogrel [Plavix] 75 mg PO DAILY #30 tablet 06/10/17 [Rx] hydroCHLOROthiazide [Hydrochlorothiazide] 12.5 mg PO DAILY 07/12/17 [History] Metoprolol [Lopressor] 25 mg PO BID 08/07/17 [History] Multivitamin [One Daily Multivitamin] 1 each PO DAILY 08/07/17 [History] Potassium Chloride [K-Tab ER] 10 meq PO DAILY 08/07/17 [History] predniSONE [PredniSONE] 10 mg PO DAILY 08/07/17 [History] 3 Allergy/AdvReac Type Severity Reaction Status Date / Time tiotropium Allergy Rash Verified 08/07/17 15:42 [From Spiriva with HandiHaler] bee stings Allergy Anaphylaxis Uncoded 08/07/17 15:42 All Systems: All other review of systems were negative except what mentioned in HPI Physical Examination Vital Signs: Vital Signs, Last 4 Hours Temp Pulse Resp BP Pulse Ox 08/09/17 08:29 123 26 104/68 93 08/09/17 07:39 20 96 08/09/17 07:36 97.7 F 111 19 94 Effort: mildly labored Auscultation: bilateral: wheezes Cardiovascular: irregular rhythm Results - Laboratory Findings CBC and BMP: 08/09/17 06:38 08/09/17 06:38 ABG ABG pH 7.49 pH Units (7.32-7.45) H 08/07/17 20:44 ABG pCO2 35 mmHg (35-45) 08/07/17 20:44 ABG pO2 84 mmHg (85-104) L 08/07/17 20:44 ABG O2 Saturation 97 % (95-98) 08/07/17 20:44 PT/INR, D-dimer PT 18.0 Seconds (9.4-12.1) H 08/08/17 03:34 Abnormal lab findings: Abnormal lab results WBC 25.6 K/mcL (4.3-11.1) H 08/09/17 06:38 RBC 3.41 M/mcL (4.19-5.50) L 08/09/17 06:38 Hgb 8.6 g/dL (12.9-16.9) L D 08/09/17 06:38 Hct 27.5 % (37.5-50.1) L 08/09/17 06:38 MCV 80.6 fL (83.0-100.0) L 08/09/17 06:38 MCH 25.2 pg (28.0-33.3) L 08/09/17 06:38 MCHC 31.3 g/dL (31.6-35.5) L 08/09/17 06:38 RDW 17.8 % (11.5-14.5) H 08/09/17 06:38 MPV 9.0 fL (9.4-12.4) L 08/09/17 06:38 Neutrophils # 23.5 K/mcL (1.6-8.9) H 08/08/17 03:34 Platelet Estimate Increased (Normal) H 08/08/17 03:34 PT 18.0 Seconds (9.4-12.1) H 08/08/17 03:34 ABG pH 7.49 pH Units (7.32-7.45) H 08/07/17 20:44 ABG pO2 84 mmHg (85-104) L 08/07/17 20:44 ABG Total CO2 28 mEq/L (20-26) H 08/07/17 20:44 ABG Base Excess 4 mEq/L (-2 to 3) H 08/07/17 20:44 Sodium 135 mEq/L (136-145) L 08/09/17 06:38 BUN 36 mg/dL (8-23) H 08/09/17 06:38 BUN/Creatinine Ratio 35 (6-26) H 08/09/17 06:38 Glucose 130 mg/dL (70-105) H 08/09/17 06:38 Calcium 8.5 mg/dL (8.6-10.3) L 08/09/17 06:38 Phosphorus 5.0 mg/dL (2.7-4.5) H 08/08/17 03:34 B-Natriuretic Peptide 182 pg/mL (Less than 100) H 08/08/17 03:34 Albumin 3.3 g/dL (3.5-5.7) L 08/08/17 03:34 Globulin 4.4 g/dL (2.4-3.5) H 08/08/17 03:34 Albumin/Globulin Ratio 0.8 (1.1-2.2) L 08/08/17 03:34 LDL Cholesterol, Calc 121 mg/dL (0-99) H 08/08/17 03:34 - Clinical Findings Intake & Output: Intake & Output 08/08/17 08/09/17 08/09/17 23:59 07:59 15:59 Intake Total 940 / 940 135 / 135 120 / 120 Output Total 300 / 300 Balance 940 / 940 -165 / -165 120 / 120 Consult Discharge Plan - Plan Referrals: Margie Estrella DO [Primary Care Provider] -
--- NOTE | 2017-08-09 10:31 | Cardiology Consult Note ---
Addendum entered and electronically signed by Cassandra Osman CNP 08/09/17 11: 48: Upon re-assessment, BP hypotensive and HR 70s. Stop cardizem drip, will not uptitrate BB. IF BP will allow, recommend titrating BB for better HR control. Original Note: <Cassandra Osman - Last Filed: 08/09/17 11:43> Date of Encounter: 08/09/17 Time of Encounter: 08:30 Assessment and Plan (1) Pneumonia Current Visit: Yes Status: Suspected Per cardiology: -Admitted with pneumonia. -Management per primary service. Qualifiers: Pneumonia type: due to unspecified organism Laterality: unspecified laterality Lung location: unspecified part of lung Qualified Code(s): J18.9 - Pneumonia, unspecified organism (2) CAD (coronary artery disease) Current Visit: Yes Status: Chronic Per cardiology: -Known CAD s/p [facility] 05/2017 [facility] with 50% left main with FFR 0.81, 80% proximal LAD with CHENG placed, 30% mid LAD, 30% proximal circumflex, 30% OM1, 15% ISR proximal RCA, 40% mid RCA. -On plavix, eliquis, beta lily, and statin. Not on asa due to need for eliquis for a.fib. -Deneis chest pain. -ECG with ST, ST depressions noted, however patient had previously on 07/12/17. -Troponins negative x3. -05/2017 TTE with LVEF 55-60%, no segmental wall motion abnormalities noted. -Continue current medical regimen. Qualifiers: Coronary Disease-Associated Artery/Lesion type: [place] artery [place] vs. transplanted heart: [place] heart Associated angina: without angina Qualified Code(s): I25.10 - Atherosclerotic heart disease of [place] coronary artery without angina pectoris (3) Tobacco abuse Current Visit: No Status: Chronic Per cardiology: -KNown tobbaco abuse. -Smoking cessation education reviewed with patient. (4) PAF (paroxysmal atrial fibrillation) Current Visit: No Status: Chronic Per cardiology: -Known PAF. -ON beta lily, verapamil, and eliquis for anticoagulation. CUrrently on cardizem drip at 5mg/hour. -ECG with possible MAT. -Telemetry reviewed with average HR previous 12 hours noted ot be 96. -[id number] score 3 (age, HTN, vascular disease). ON eliquis. -Will increase beta lily, wean cardizem drip to off as tolerated for HR less than 100. -Of note, on eliquis for anticoagulation, now with worsening anemia. -If anemia worsens, or active bleeding noted, reasonable to hold eliquis, however would be at an increased risk of CVA/embolic event. Patient updated and states understanding. (5) Anemia Current Visit: No Status: Acute Per cardiology: -Worsening anemia noted. -Denies active bleeding. -Recommend anemia work up. -Management per primary service. Qualifiers: Anemia type: unspecified type Qualified Code(s): D64.9 - Anemia, unspecified Discussion w patient/family: The assessment and plan as outlined above was discussed with the patient who expressed understanding and agreement. All questions were answered. Thank you for involving us in the care of your patient. Please call with any questions. Discussed and reviewed with . History of Present Illness Consult date: 08/08/17 Requesting physician: Toya Danielson Consult reason: a.fib RVR Chief complaint: shortness of breath History of present illness: Mr. Bai is a 67 year old male with a relevant past medical history of [place] , CAD s/p PCI, PAF on eliquis, COPD, HTN, GERD, anxiety, depression. Patient presented to [facility] with complaints of increased shortness of breath. Patient has known COPD and has O2 as needed at home. Patient states he was unable to breath at home so he came in. Denies chest pain. Denies palpitations or fluttering. Denies bleeding or blood loss. Past Med Surg Social Fam HX - Past Medical History Attestation: Yes The following information was validated with the patient. Source: patient, old records reviewed Medical history: atrial fibrillation, COPD, fibromyalgia, GERD, hyperlipidemia, hypertension, myocardial infarction Psychiatric history: anxiety, depression - Past Surgical History Surgical History: appendectomy, other - Social History Smoking Status: Current every day smoker Smokeless Tobacco Status: Yes Alcohol use: none Drug use: none - Family History Sister Family Member Ethnicity: Non- Living Status: Still Living Hx Family Cardiac Disorders: Yes (HD) Hx Family Respiratory Disorders: No Hx Family Cancer: Yes (Breast) Hx Family GI Disorders: No Hx Family Endocrine Disorder: No Hx Family Neuromuscular Disorders: No Hx Family Neurologic Disorders: No Hx Family HEENT Disorders: No Hx Family Autoimmune Disorders: No Brother Family Member Ethnicity: Non- Living Status: Still Living Mother Family Member Ethnicity: Non- Living Status: Father Family Member Ethnicity: Non- Living Status: Hx Family Cardiac Disorders: No Hx Family Respiratory Disorders: No Hx Family Cancer: Yes Hx Family Endocrine Disorder: No Medications and Allergies Albuterol Neb [Proventil Neb] 2.5 mg IH TID 02/19/17 [History] Albuterol Sulfate [Albuterol Inhaler] 2 puff IH Q6H PRN 02/19/17 [History] Alendronate Sodium [Fosamax] 70 mg PO WE 02/19/17 [History] Atorvastatin [Lipitor] 40 mg PO HS 02/19/17 [History] Budesonide/Formoterol 160/4.5 [Symbicort 160/4.5] 2 puff IH BIDR 02/19/17 [ History] Cetirizine HCl [All Day Allergy] 10 mg PO DAILY 02/19/17 [History] Gabapentin [Neurontin] 900 mg PO TID 02/19/17 [History] Omeprazole [PriLOSEC] 20 mg PO DAILY 02/19/17 [History] Oxycodone HCl/Acetaminophen [Percocet 10-325 mg Tablet] 1 tab PO 5XD PRN [History] Theophylline Anhydrous [Oliver-24] 200 mg PO DAILY 02/19/17 [History] Verapamil HCl [Verapamil ER] 180 mg PO DAILY 02/19/17 [History] Apixaban [Eliquis] 5 mg PO BID #60 tablet 03/18/17 [Rx] Sertraline [Zoloft] 150 mg PO DAILY 06/06/17 [History] Clopidogrel [Plavix] 75 mg PO DAILY #30 tablet 06/10/17 [Rx] hydroCHLOROthiazide [Hydrochlorothiazide] 12.5 mg PO DAILY 07/12/17 [History] Metoprolol [Lopressor] 25 mg PO BID 08/07/17 [History] Multivitamin [One Daily Multivitamin] 1 each PO DAILY 08/07/17 [History] Potassium Chloride [K-Tab ER] 10 meq PO DAILY 08/07/17 [History] predniSONE [PredniSONE] 10 mg PO DAILY 08/07/17 [History] 3 Allergy/AdvReac Type Severity Reaction Status Date / Time tiotropium Allergy Rash Verified 08/07/17 15:42 [From Spiriva with HandiHaler] bee stings Allergy Anaphylaxis Uncoded 08/07/17 15:42 All Systems Review: The remainder of the systems were reviewed and are negative - Cardiovascular Cardiovascular: as per HPI, dyspnea at rest, dyspnea on exertion Physical Examination Vital Signs, Last 4 Hours Temp Pulse Resp BP Pulse Ox 08/09/17 08:29 123 26 104/68 93 08/09/17 07:39 20 96 08/09/17 07:36 97.7 F 111 19 94 General: Conversant, Other (conversational dyspnea noted. ) HEENT: Atraumatic, Normocephaly, Mucus Membranes Moist Neck: No JVD, Normal carotid pulses Cardiac: Reg Rate and Rhythm, Normal S1 and S2, No Murmur Lungs: Other (Lung sounds coarse and with inspiratory wheezes. ) Neuro: Alert and responsive, No focal deficits noted Abdomen: Soft, Non-Tender Skin: No rashes noted on visualized skin Musculoskeletal: No Chest Wall Tenderness Extremities: No Clubbing, No Cyanosis, No Edema, Normal Pulses Results 08/09/17 06:38 08/09/17 06:38 Lab Results Impressions Chest X-Ray 08/08/17 19:27 IMPRESSION: Dense opacification in the right upper lobe which likely represents interval filling of a large cavitary lesion described on prior CT. Rapid interval change may represent superimposed infection. Pulmonary follow-up recommended with consideration for bronchoscopy. D/ / Geoff Mcduffie MD / Geoff Mcduffie MD Interpreting Provider: Geoff Mcduffie MD Active Medications Albuterol/Ipratropium (Duoneb) 3 ml IH [id number] NATALYA Stop: 02/06/18 20:46 Last Admin: 08/09/17 07:39 Dose: 3 ml Atorvastatin Calcium (Lipitor) 40 mg PO HS NATALYA Stop: 02/06/18 21:01 Last Admin: 08/08/17 21:27 Dose: 40 mg Budesonide/Formoterol Fumarate (Symbicort) 2 puff IH BIDR NATALYA PRN Reason: Protocol Stop: 02/08/18 10:01 Last Admin: 08/09/17 10:37 Dose: 2 puff Clopidogrel Bisulfate (Plavix) 75 mg PO DAILY NATALYA Stop: 02/07/18 09:01 Last Admin: 08/09/17 07:44 Dose: 75 mg Gabapentin (Neurontin) 900 mg PO TID NATALYA Stop: 02/06/18 21:01 Last Admin: 08/09/17 07:44 Dose: 900 mg Hydrochlorothiazide (Hydrochlorothiazide) 12.5 mg PO DAILY NATALYA Stop: 02/07/18 09:01 Last Admin: 08/09/17 07:44 Dose: 12.5 mg Diltiazem HCl 125 mg/ Sodium (Chloride) 125 mls @ 5 mls/hr IVC .Q24H NATALYA; 5 MG/ HR PRN Reason: Protocol Stop: 02/06/18 21:01 Last Titration: 08/09/17 10:30 Dose: 0 mg/hr, 0 mls/hr Levofloxacin/Dextrose (Levaquin Premix 750mg/150 Ml) 750 mg in 150 mls @ 100 mls/hr IVPB DAILY NATALYA PRN Reason: Protocol Stop: 02/07/18 20:01 Last Admin: 08/09/17 08:14 Dose: 100 mls/hr Piperacillin Sod/Tazobactam (Sod 3.375 gm/ Sodium Chloride) 100 mls @ 25 mls/ hr IVPB Q8HR [facility] Stop: 02/08/18 00:01 Last Admin: 08/09/17 08:13 Dose: 25 mls/hr Vancomycin HCl 1,000 mg/ (Sodium Chloride) 250 mls @ 167 mls/hr IVPB Q12H NATALYA PRN Reason: Protocol Stop: 02/07/18 20:01 Last Admin: 08/09/17 08:14 Dose: 167 mls/hr Levalbuterol HCl (Xopenex) 1.25 mg IH [id number] [facility] Stop: 02/08/18 10:01 Last Admin: 08/09/17 10:35 Dose: 1.25 mg Methylprednisolone (Solu-Medrol) 40 mg IVP Q6HR [facility] Stop: 02/07/18 00:01 Last Admin: 08/09/17 08:42 Dose: 40 mg Metoprolol Tartrate (Lopressor) 50 mg PO BID NATALYA Stop: 02/07/18 21:01 Last Admin: 08/09/17 07:45 Dose: 50 mg Naloxone HCl (Narcan) 0.4 mg IVP Q2MIN PRN PRN Reason: SEE COMMENTS Stop: 02/06/18 20:34 Omeprazole (Prilosec) 20 mg PO DAILY NATALYA PRN Reason: Protocol Stop: 02/07/18 09:01 Last Admin: 08/09/17 07:44 Dose: 20 mg Oxycodone/Acetaminophen (Percocet 10/325) 1 each PO 5XD PRN PRN Reason: Pain Stop: 02/06/18 20:36 Last Admin: 08/09/17 07:45 Dose: 1 each Sertraline HCl (Zoloft) 150 mg PO DAILY NATALYA Stop: 02/07/18 09:01 Last Admin: 08/09/17 07:45 Dose: 150 mg Verapamil HCl (Calan Sr) 180 mg PO DAILY NATALYA Stop: 02/07/18 09:01 Last Admin: 08/09/17 07:45 Dose: 180 mg Laboratory Tests 08/07/17 08/07/17 08/08/17 15:50 20:58 03:34 WBC Hgb Potassium Creatinine Magnesium Troponin I < 0.03 < 0.03 < 0.03 08/08/17 08/08/17 08/08/17 03:34 09:04 18:59 WBC Hgb Potassium Creatinine Magnesium 1.9 Troponin I < 0.03 < 0.03 08/09/17 08/09/17 06:38 06:38 WBC 25.6 H Hgb 8.6 L D Potassium 4.2 Creatinine 1.02 Magnesium Troponin I - Imaging and Cardiology Chest Xray: report reviewed Echo: report reviewed Cardiac cath: report reviewed - EKG Interpretation EKG results cardiology: personally reviewed (ECG reviewed with ST.), other ( Telemetry reviewed with average HR previous 12 hours noted to be 96, SR. PVCs noted.) Consult Discharge Plan - Plan Referrals: Margie Estrella DO [Primary Care Provider] - <Bettye Verduzco - Last Filed: 08/09/17 13:53> Date of Encounter: 08/09/17 - Attending Attestation I examined this patient and my medical decision-making was reviewed with the GLASS DESIGNER. I agree with the documented findings, disposition and treatment plan as described. Mr. Bai was admitted with PNA c/b AF RVR. Now back in NSR. Recommend stopping cardizem gtt, continue outpatient medications - metoprolol, verapamil. Patient is on eliquis for anticoagulation as well as plavix for recently placed coronary stent in May 2017. Troponins negative. No new ECG changes when compared to prior. Will defer anemia workup to primary service. No bleeding reported. Patient should ideally not stop antiplatelet agent unless there is life threatening bleeding given recent drug eluting stent placement. No further cardiac recommendations. Please call with questions. Will sign off. Assessment and Plan Discussion w patient/family: The assessment and plan as outlined above was discussed with the patient and/or family members who expressed understanding and agreement. All questions were answered. Thank you for involving us in the care of your patient. Please call with any questions. History of Present Illness History of present illness: Mr. Bai is a 67 year old male All Systems Review: The remainder of the systems were reviewed and are negative Physical Examination Vital Signs, Last 4 Hours Temp Pulse Resp BP Pulse Ox 08/09/17 11:19 97.6 F 76 19 90/54 94 08/09/17 10:40 18 95 08/09/17 10:38 79 18 87/56 94 Results 08/09/17 06:38 08/09/17 06:38 Lab Results 08/08/17 08/09/17 08/09/17 18:59 06:38 06:38 WBC 25.6 H Hgb 8.6 L D Hct 27.5 L Plt Count 396 Sodium 135 L Potassium 4.2 Chloride 99 Carbon Dioxide 29 BUN 36 H Creatinine 1.02 Glucose 130 H Calcium 8.5 L Troponin I < 0.03
[2017-08-09] MEDS: Levalbuterol Neb 1.25 MG/3 ML IH SCH ×3 (10:35→20:21)
[2017-08-09] MEDS: Budesonide/Formoterol 160/4.5 1 PUFF INH IH SCH ×2 (10:37→20:15)
[2017-08-09 10:51] LABS: ABG Base Excess 3 mEq/L (-2 to 3); ABG HCO3 26 mEq/L (21-27); ABG Oxygen Saturation 93 % (95-98); ABG PCO2 36 mmHg (35-45); ABG PH 7.48 pH Units (7.32-7.45); ABG PO2 60 mmHg (85-104); ABG TCO2 28 mEq/L (20-26)
--- NOTE | 2017-08-09 14:25 | Event Note ---
Date of Encounter: 08/09/17 Time of Encounter: 14:23 - Cardiology Event Note Spoke with insurance job titles, concerns for bleeding. Eliquis being held. Would recommend continuing plavix, unless life threatening. Patient with recent drug eluding stent placed 05/2017, known left main disease. Patient would be at high risk of stent thrombosis, PA, . Will continue to monitor.
[2017-08-09] MEDS ORDERED: 0.9 % Sodium Chloride 500 ML IVC ONE (18:05)
[2017-08-09] MEDS ORDERED: NON-FORMULARY MEDICATION 1 EACH EACH (Alendronate Sodium [Fosamax] 70 MG) PO SCH (20:35)
[2017-08-09] MEDS: clonazePAM 0.5 MG TABLET PO PRN (21:34)
[2017-08-09 22:38] LABS: Basophils % 0.1 %; Hematocrit 26.5 % (37.5-50.1); Hemoglobin 8.3 g/dL (12.9-16.9); Immature Granulocytes % 1.6 % (0-4); Immature Platelets 2.4 % (1.1-6.1); Lymphocytes # 0.7 K/mcL (0.6-4.6); Mean Corpuscular HGB Conc 31.3 g/dL (31.6-35.5); Mean Corpuscular Hemoglobin 25.7 pg (28.0-33.3); Mean Platelet Volume 9.4 fL (9.4-12.4); Monocytes # 0.7 K/mcL (0.0-1.3); Monocytes % 2.8 %; Neutrophils # 22.2 K/mcL (1.6-8.9); Nucleated Red Blood Cells 0.1 /100 WBC (0); Platelet Count 384 K/mcL (140-400); Red Blood Count 3.23 M/mcL (4.19-5.50); Red Cell Distribution Width 17.6 % (11.5-14.5); Segmented Neutrophils % 92.5 %
[2017-08-09 22:59] LABS: Toxic Granulation Present (Not Present)
[2017-08-09 23:00] LABS: Large Platelets Present (Not Present); Platelet Estimate Normal (Normal)
[2017-08-10] MEDS: MethylPREDNISolone 40 MG/ML VIAL IVP SCH ×5 (01:45→16:50)
[2017-08-10] MEDS: Ipratropium/Albuterol Neb 3 ML IH SCH ×6 (04:01→23:11)
[2017-08-10] MEDS: Levalbuterol Neb 1.25 MG/3 ML IH SCH ×4 (04:02→22:20)
[2017-08-10] MEDS: Budesonide/Formoterol 160/4.5 1 PUFF INH IH SCH ×2 (07:46→19:41)
[2017-08-10] MEDS: Gabapentin 300 MG CAPSULE PO SCH ×3 (08:04→20:32)
[2017-08-10] MEDS: Verapamil ER (24 HR) 180 MG TABLET.ER PO SCH (08:04)
[2017-08-10] MEDS: *HR* OxyCODONE/APAP 10/325 TABLET PO PRN ×3 (08:05→20:31)
[2017-08-10] MEDS: hydroCHLOROthiazide 25 MG TABLET PO SCH (08:05)
[2017-08-10] MEDS: Levofloxacin 750 MG/150 ML 750 MG/150 ML BAG IVPB SCH (08:05)
[2017-08-10 08:30] LABS: Basophils % 0.2 %; Hemoglobin 8.1 g/dL (12.9-16.9); Lymphocytes % 4.8 %
[2017-08-10 08:32] LABS: Basophils # 0.1 K/mcL (0.0-0.2); Hematocrit 26.3 % (37.5-50.1); Immature Granulocytes % 1.3 % (0-4); Lymphocytes # 1.3 K/mcL (0.6-4.6); Mean Corpuscular HGB Conc 30.8 g/dL (31.6-35.5); Mean Corpuscular Hemoglobin 25.4 pg (28.0-33.3); Mean Corpuscular Volume 82.4 fL (83.0-100.0); Mean Platelet Volume 9.3 fL (9.4-12.4); Monocytes # 1.5 K/mcL (0.0-1.3); Monocytes % 5.7 %; Neutrophils # 23.1 K/mcL (1.6-8.9); Platelet Count 338 K/mcL (140-400); Red Blood Count 3.19 M/mcL (4.19-5.50); Red Cell Distribution Width 17.8 % (11.5-14.5)
[2017-08-10 08:49] LABS: BUN/Creatinine Ratio 36 (6-26); Blood Urea Nitrogen 35 mg/dL (8-23); Calcium 8.6 mg/dL (8.6-10.3); Carbon Dioxide 28 mEq/L (23-29); Chloride 105 mEq/L (98-107); Glucose 123 mg/dL (70-105); Osmolality,Calculated 295 (280-300); Potassium 3.8 mEq/L (3.5-5.1); Sodium 138 mEq/L (136-145); eGFR For Non-African Americans > 60 (> 60)
[2017-08-10 09:19] LABS: Platelet Estimate Normal (Normal)
--- NOTE | 2017-08-10 11:36 | Pulmonology Progress Note ---
Date of Encounter: 08/10/17 Time of Encounter: 11:00 Assessment and Plan (1) Cough with hemoptysis Current Visit: Yes Status: Acute Patient is hemoptysis is coming down if it worsens again will do bronchoscopy with airway examination , will put him on schedule tomorrow will keep him NPO after midnight (2) Acute and chronic respiratory failure Current Visit: Yes Status: Acute Patient is back to his baseline O2 requirements . Will continue to monitor if the hemoptysis worsen will pursue with bronchoscopy tomorrow .Patient agrees with the plan . Qualifiers: Respiratory failure complication: hypoxia Qualified Code(s): J96.21 - Acute and chronic respiratory failure with hypoxia (3) COPD exacerbation Current Visit: Yes Status: Acute To continue Bronchodilator regimen and steroids . Reviewed CT scan which showed fluid filled with bullous cavity most likely bleeding , with new ground glass opacity , the hemoptysis is coming down after stopping eliquis . Will NPo after Midnight in case we need Bronchoscopy . (4) Congestive heart failure Current Visit: Yes Status: Acute To continue management according to primary team Qualifiers: Heart failure type: unspecified Heart failure chronicity: unspecified Qualified Code(s): I50.9 - Heart failure, unspecified (5) Pneumonia Current Visit: Yes Status: Suspected To continue broad spectrum antibiotics Qualifiers: Pneumonia type: due to unspecified organism Laterality: right Lung location: unspecified part of lung Qualified Code(s): J18.9 - Pneumonia, unspecified organism Subjective Principal diagnosis: COPD exacerbation with bleeding into bullous cavity Interval history: 67 year old male with Severe COPD presented with COPD exacerbation developed hemoptysis and bleeding into bullous cavity Eliquis was stopped now the hemoptysis is minimal , cough is minimal patient is feeling lot better patient oxygenation is stable Objective PUL Vital signs: Last Vital Signs Temp 98.6 F 08/10/17 07:29 Pulse 99 08/10/17 07:29 Resp 18 08/10/17 11:08 BP 116/67 08/10/17 07:29 Pulse Ox 98 08/10/17 11:08 Auscultation: bilateral: wheezes (very scattered wheezes ) Cardiovascular: irregular rhythm Results - Laboratory Findings CBC and BMP: 08/10/17 16:27 08/10/17 08:17 ABG ABG pH 7.48 pH Units (7.32-7.45) H 08/09/17 10:33 ABG pCO2 36 mmHg (35-45) 08/09/17 10:33 ABG pO2 60 mmHg (85-104) L 08/09/17 10:33 ABG O2 Saturation 93 % (95-98) L 08/09/17 10:33 PT/INR, D-dimer PT 18.0 Seconds (9.4-12.1) H 08/08/17 03:34 Abnormal lab findings: Abnormal lab results WBC 26.2 K/mcL (4.3-11.1) H 08/10/17 08:17 RBC 3.19 M/mcL (4.19-5.50) L 08/10/17 08:17 Hgb 8.1 g/dL (12.9-16.9) L 08/10/17 08:17 Hct 26.3 % (37.5-50.1) L 08/10/17 08:17 MCV 82.4 fL (83.0-100.0) L 08/10/17 08:17 MCH 25.4 pg (28.0-33.3) L 08/10/17 08:17 MCHC 30.8 g/dL (31.6-35.5) L 08/10/17 08:17 RDW 17.8 % (11.5-14.5) H 08/10/17 08:17 MPV 9.3 fL (9.4-12.4) L 08/10/17 08:17 Neutrophils # 23.1 K/mcL (1.6-8.9) H 08/10/17 08:17 Monocytes # 1.5 K/mcL (0.0-1.3) H 08/10/17 08:17 Nucleated RBCs/100 WBC 0.1 /100 WBC (0) H 08/09/17 22:28 Toxic Granulation Present (Not Present) A 08/09/17 22:28 Large Platelets Present (Not Present) A 08/09/17 22:28 PT 18.0 Seconds (9.4-12.1) H 08/08/17 03:34 ABG pH 7.48 pH Units (7.32-7.45) H 08/09/17 10:33 ABG pO2 60 mmHg (85-104) L 08/09/17 10:33 ABG Total CO2 28 mEq/L (20-26) H 08/09/17 10:33 ABG O2 Saturation 93 % (95-98) L 08/09/17 10:33 BUN 35 mg/dL (8-23) H 08/10/17 08:17 BUN/Creatinine Ratio 36 (6-26) H 08/10/17 08:17 Glucose 123 mg/dL (70-105) H 08/10/17 08:17 Phosphorus 5.0 mg/dL (2.7-4.5) H 08/08/17 03:34 B-Natriuretic Peptide 182 pg/mL (Less than 100) H 08/08/17 03:34 Albumin 3.3 g/dL (3.5-5.7) L 08/08/17 03:34 Globulin 4.4 g/dL (2.4-3.5) H 08/08/17 03:34 Albumin/Globulin Ratio 0.8 (1.1-2.2) L 08/08/17 03:34 LDL Cholesterol, Calc 121 mg/dL (0-99) H 08/08/17 03:34 - Clinical Findings Intake & Output: Intake & Output 08/09/17 08/10/17 08/10/17 23:59 07:59 15:59 Intake Total 570 / 570 100 / 100 Output Total 240 / 240 700 / 700 240 / 240 Balance 330 / 330 -600 / -600 -240 / -240 Weight 63.6 kg - VTE Documentation of Mechanical Device: Graduated compression elastic hosiery Consult Discharge Plan - Plan Referrals: Margie Estrella DO [Primary Care Provider] - 08/15/17 1:30 pm
--- NOTE | 2017-08-10 12:19 | Cardiology Progress Note ---
Date of Encounter: 08/10/17 Time of Encounter: 12:17 Assessment and Plan (1) PAF (paroxysmal atrial fibrillation) Current Visit: No Status: Chronic Per cardiology: -Known PAF. -ON beta lily, verapamil. -ECG with possible MAT. -Telemetry reviewed with average HR previous 12 hours noted ot be 96. NSR -[id number] score 3 (age, HTN, vascular disease). eliquis stopped due to worsening edema and concern for possible bleeding into lung cavity as discussed with pulmonology and seen on CT scan. Recommend restarting low dose asa secondary for recent stent and CVA prevention. Cardiology will sign off. Please call with questions. (2) CAD (coronary artery disease) Current Visit: Yes Status: Chronic Per cardiology: -Known CAD s/p C 05/2017 [facility] with 50% left main with FFR 0.81, 80% proximal LAD with CHENG placed, 30% mid LAD, 30% proximal circumflex, 30% OM1, 15% ISR proximal RCA, 40% mid RCA. -On plavix, beta lily, and statin. Was not on asa due to need for eliquis for a.fib. Now off eliquis. Recommend restarting asa. -Deneis chest pain. -ECG with ST, ST depressions noted, however patient had previously on 07/12/17. -Troponins negative x3. -05/2017 [facility]TE with LVEF 55-60%, no segmental wall motion abnormalities noted. -Continue medical regimen. Qualifiers: Coronary Disease-Associated Artery/Lesion type: [place] artery [place] vs. transplanted heart: [place] heart Associated angina: without angina Qualified Code(s): I25.10 - Atherosclerotic heart disease of [place] coronary artery without angina pectoris (3) Pneumonia Current Visit: Yes Status: Suspected Per cardiology: -Admitted with pneumonia. -Management per primary service. Qualifiers: Pneumonia type: due to unspecified organism Laterality: right Lung location: unspecified part of lung Qualified Code(s): J18.9 - Pneumonia, unspecified organism (4) Tobacco abuse Current Visit: No Status: Chronic Per cardiology: -KNown tobbaco abuse. -Smoking cessation education reviewed with patient. Discussion w patient/family: The assessment and plan as outlined above was discussed with the patient and/or family members who expressed understanding and agreement. All questions were answered. Thank you for involving us in the care of your patient. Please call with any questions. Objective Vital Signs, Last 4 Hours Temp Pulse Resp BP Pulse Ox 08/10/17 11:32 98.1 F 79 113/62 99 08/10/17 11:08 18 98 Results 08/10/17 08:17 08/10/17 08:17 Lab Results 08/09/17 08/10/17 08/10/17 22:28 08:17 08:17 WBC 24.0 H 26.2 H Hgb 8.3 L 8.1 L Hct 26.5 L 26.3 L Plt Count 384 338 Sodium 138 Potassium 3.8 Chloride 105 Carbon Dioxide 28 BUN 35 H Creatinine 0.97 Glucose 123 H Calcium 8.6 - VTE Documentation of Mechanical Device: Graduated compression elastic hosiery Consult Discharge Plan - Plan Referrals: Margie Estrella DO [Primary Care Provider] - 08/15/17 1:30 pm
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
--- NOTE | 2017-08-10 15:26 | Electrocardiograph Report ---
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
[2017-08-10] MEDS: Aspirin 81 MG TAB.CHEW PO SCH (15:39)
--- NOTE | 2017-08-10 16:13 | Electrocardiograph Report ---
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
[2017-08-10 16:54] LABS: Hematocrit 24.5 % (37.5-50.1); Hemoglobin 7.6 g/dL (12.9-16.9)
[2017-08-10] MEDS: clonazePAM 0.5 MG TABLET PO PRN (20:32)
--- NOTE | 2017-08-10 20:39 | Electrocardiograph Report ---
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
--- NOTE | 2017-08-10 20:40 | Electrocardiograph Report ---
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
--- NOTE | 2017-08-10 20:43 | Electrocardiograph Report ---
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
[2017-08-10 21:48] LABS: Hematocrit 24.1 % (37.5-50.1); Hemoglobin 7.3 g/dL (12.9-16.9)
[2017-08-11] MEDS ORDERED: 0.9 % Sodium Chloride 250 ML ONE (02:35)
[2017-08-11] MEDS: MethylPREDNISolone 40 MG/ML VIAL IVP SCH ×5 (02:58→23:36)
[2017-08-11] MEDS: Levalbuterol Neb 1.25 MG/3 ML IH SCH ×4 (03:54→19:53)
[2017-08-11] MEDS: Ipratropium/Albuterol Neb 3 ML IH SCH ×6 (03:54→23:37)
[2017-08-11] MEDS: Budesonide/Formoterol 160/4.5 1 PUFF INH IH SCH ×2 (07:33→19:49)
[2017-08-11] MEDS: *HR* OxyCODONE/APAP 10/325 TABLET PO PRN ×2 (09:07→20:37)
[2017-08-11] MEDS: Gabapentin 300 MG CAPSULE PO SCH ×3 (09:07→20:37)
[2017-08-11] MEDS: hydroCHLOROthiazide 25 MG TABLET PO SCH (09:07)
[2017-08-11] MEDS: Verapamil ER (24 HR) 180 MG TABLET.ER PO SCH (09:08)
[2017-08-11] MEDS: Aspirin 81 MG TAB.CHEW PO SCH (09:08)
[2017-08-11] MEDS: Levofloxacin 750 MG/150 ML 750 MG/150 ML BAG IVPB SCH (09:09)
[2017-08-11 09:18] LABS: Basophils % 0.1 %; Hematocrit 28.6 % (37.5-50.1); Immature Granulocytes % 1.5 % (0-4); Lymphocytes # 1.2 K/mcL (0.6-4.6); Lymphocytes % 6.1 %; Mean Corpuscular HGB Conc 31.1 g/dL (31.6-35.5); Mean Corpuscular Volume 83.6 fL (83.0-100.0); Mean Platelet Volume 9.4 fL (9.4-12.4); Monocytes # 1.4 K/mcL (0.0-1.3); Monocytes % 6.7 %; Neutrophils # 17.4 K/mcL (1.6-8.9); Platelet Count 340 K/mcL (140-400); Red Blood Count 3.42 M/mcL (4.19-5.50); Red Cell Distribution Width 17.7 % (11.5-14.5); Segmented Neutrophils % 85.6 %
[2017-08-11 09:19] LABS: Hemoglobin 8.9 g/dL (12.9-16.9)
[2017-08-11 09:20] LABS: BUN/Creatinine Ratio 33 (6-26); Blood Urea Nitrogen 26 mg/dL (8-23); Calcium 8.9 mg/dL (8.6-10.3); Carbon Dioxide 30 mEq/L (23-29); Chloride 106 mEq/L (98-107); Glucose 107 mg/dL (70-105); Osmolality,Calculated 295 (280-300); Potassium 4.6 mEq/L (3.5-5.1); Sodium 140 mEq/L (136-145); eGFR For Non-African Americans > 60 (> 60)
--- NOTE | 2017-08-11 12:37 | Internal Med Progress Note ---
Date of Encounter: 08/11/17 Time of Encounter: 08:20 - Assessment and plan (1) Cough with hemoptysis Current Visit: Yes Status: Acute Assessment and plan: Stable. No acute worsening. Pulmonology following. Stopped anticoagulation at this time. Remains on aspirin and Plavix. Moderate risk for complications. (2) Acute and chronic respiratory failure Current Visit: Yes Status: Acute Assessment and plan: Improving. Continue to treat underlying conditions. We will transition to oral steroids. Qualifiers: Respiratory failure complication: hypoxia Qualified Code(s): J96.21 - Acute and chronic respiratory failure with hypoxia (3) Sepsis Current Visit: Yes Status: Suspected Assessment and plan: Cultures are so far negative. Will de-escalate antibiotics. Qualifiers: Sepsis type: methicillin resistant Staphylococcus aureus Qualified Code(s) : A41.02 - Sepsis due to Methicillin resistant Staphylococcus aureus (4) Atrial fibrillation with RVR Current Visit: Yes Status: Acute Assessment and plan: Heart rate mostly controlled with intermittent elevation with activity. Continue metoprolol at current dose. Place patient on low-dose metoprolol as needed if His heart rate persistently is greater than 110/m. (5) CAD (coronary artery disease) Current Visit: Yes Status: Chronic Assessment and plan: On aspirin, statin, metoprolol. Qualifiers: Coronary Disease-Associated Artery/Lesion type: [place] artery [place] vs. transplanted heart: ute heart Associated angina: without angina Qualified Code(s): I25.10 - Atherosclerotic heart disease of [place] coronary artery without angina pectoris (6) COPD exacerbation Current Visit: Yes Status: Acute Assessment and plan: Continue bronchodilators. We will taper steroids. (7) HTN (hypertension) Current Visit: Yes Status: Chronic Assessment and plan: Blood pressure is well controlled at this time. Qualifiers: Hypertension type: essential hypertension Qualified Code(s): I10 - Essential (primary) hypertension (8) Pneumonia Current Visit: Yes Status: Suspected Assessment and plan: On broad-spectrum antibiotics. We will begin to de-escalate at this time as no cultures are positive so far. Will send sputum for culture. Qualifiers: Pneumonia type: due to unspecified organism Laterality: right Lung location: unspecified part of lung Qualified Code(s): J18.9 - Pneumonia, unspecified organism (9) Anemia Current Visit: Yes Status: Acute Assessment and plan: Anemia improved after 1 unit packed red blood cell transfusion. We will continue to monitor blood counts. Anemia due to bleeding into her right upper lobe cavitary lesion while patient was on anticoagulation. Anticoagulation has now been held. Qualifiers: Anemia type: other cause Other causes of anemia: acute posthemorrhagic Qualified Code(s): D62 - Acute posthemorrhagic anemia (10) DVT prophylaxis Current Visit: Yes Status: Acute Assessment and plan: On SCDs. - Subjective Interval history: Patient continues to improve. Currently on 2 L O2 supplementation. No chest pain. Does have cough and continued mild hemoptysis. - Constitutional Vitals: Temp Pulse Resp BP Pulse Ox 97.7 F 99 20 133/76 96 08/11/17 10:43 08/11/17 10:43 08/11/17 11:42 08/11/17 10:43 08/11/17 11:42 General appearance: Present: cooperative, A&O X 3, severe distress, answers questions appropriately - Neck Neck exam general surgery: Present: supple, trachea midline. Absent: lymphadenopathy - Respiratory Respiratory exam: Present: prolonged expiratory phase, wheezes. Absent: accessory muscle use, rales, rhonchi - Cardiovascular Cardiovascular exam: Present: RRR, +S1, +S2. Absent: diastolic murmur, gallop, rubs, systolic murmur - GI/Abdominal GI/Abdominal exam: Present: normal bowel sounds, soft, no peritoneal signs. Absent: distended, tenderness - Extremities Exam Extremities exam: Present: warm, radial pulses palpable and symmetrical. Absent : calf tenderness, cyanotic, pedal edema - Neurological Exam Neurological exam: Present: CN II-XII intact, oriented X3, no focal deficits. Absent: facial droop, speech deficit Internal Medicine: Result - Labs CBC & Chem 7: 08/11/17 08:54 08/11/17 08:54 Labs: Short CBC 08/10/17 08/10/17 08/11/17 Range/Units 16:27 21:29 08:54 WBC 20.3 H (4.3-11.1) K/mcL Hgb 7.6 L 7.3 L 8.9 L D (12.9-16.9) g/dL Hct 24.5 L 24.1 L 28.6 L (37.5-50.1) % Plt Count 340 (140-400) K/mcL Neutrophils # 17.4 H (1.6-8.9) K/mcL BMP 08/11/17 08:54 Sodium 140 Potassium 4.6 Chloride 106 Carbon Dioxide 30 H BUN 26 H Creatinine 0.79 Glucose 107 H Calcium 8.9 - ABG Interpretation ABG results: ABG ABG pH 7.48 pH Units (7.32-7.45) H 08/09/17 10:33 ABG pCO2 36 mmHg (35-45) 08/09/17 10:33 ABG pO2 60 mmHg (85-104) L 08/09/17 10:33 ABG O2 Saturation 93 % (95-98) L 08/09/17 10:33 PT/INR, D-dimer PT 18.0 Seconds (9.4-12.1) H 08/08/17 03:34 - VTE Documentation of Mechanical Device: Intermittent pneumatic compression device Consult Discharge Plan - Plan Referrals: Margie Estrella DO [Primary Care Provider] - 08/15/17 1:30 pm
--- NOTE | 2017-08-11 14:28 | Pulmonology Progress Note ---
Date of Encounter: 08/11/17 Time of Encounter: 02:15 Assessment and Plan (1) Cough with hemoptysis Current Visit: Yes Status: Acute Patient is hemoptysis is coming down if it worsens again will do bronchoscopy with airway examination , will put him on schedule tomorrow will keep him NPO after midnight 08/11 Patient Hemoptysis was minimal will hold off Bronchoscopy today (2) Acute and chronic respiratory failure Current Visit: Yes Status: Acute Patient is on minimal O2 requirements . Will continue to monitor if the hemoptysis worsen will pursue with bronchoscopy tomorrow .Patient agrees with the plan . Qualifiers: Respiratory failure complication: hypoxia Qualified Code(s): J96.21 - Acute and chronic respiratory failure with hypoxia (3) COPD exacerbation Current Visit: Yes Status: Acute To continue Bronchodilator regimen and steroids . Reviewed CT scan which showed fluid filled with bullous cavity most likely bleeding , with new ground glass opacity , the hemoptysis is coming down after stopping eliquis . Will NPo after Midnight in case we need Bronchoscopy . 08/11 minimal hemoptysis will hold off Bronchsocopy . (4) Congestive heart failure Current Visit: Yes Status: Acute To continue management according to primary team Qualifiers: Heart failure type: unspecified Heart failure chronicity: unspecified Qualified Code(s): I50.9 - Heart failure, unspecified (5) Pneumonia Current Visit: Yes Status: Suspected To continue broad spectrum antibiotics Qualifiers: Pneumonia type: due to unspecified organism Laterality: right Lung location: unspecified part of lung Qualified Code(s): J18.9 - Pneumonia, unspecified organism Subjective Principal diagnosis: COPD exacerbation with bleeding into bullous cavity Interval history: 67 year old male with Severe COPD presented with COPD exacerbation developed hemoptysis and bleeding into bullous cavity Eliquis was stopped now the hemoptysis is minimal , cough is minimal patient is feeling lot better patient oxygenation is stable 08/11 . Patient Hemoptysis is minimal will hold off bronchoscopy today , patient cough with sputum production is also reduced . Patient feeling lot better . Objective PUL Vital signs: Last Vital Signs Temp 97.7 F 08/11/17 10:43 Pulse 99 08/11/17 10:43 Resp 20 08/11/17 11:42 BP 133/76 08/11/17 10:43 Pulse Ox 96 08/11/17 11:42 Auscultation: bilateral: wheezes Results - Laboratory Findings CBC and BMP: 08/11/17 08:54 08/11/17 08:54 ABG ABG pH 7.48 pH Units (7.32-7.45) H 08/09/17 10:33 ABG pCO2 36 mmHg (35-45) 08/09/17 10:33 ABG pO2 60 mmHg (85-104) L 08/09/17 10:33 ABG O2 Saturation 93 % (95-98) L 08/09/17 10:33 PT/INR, D-dimer PT 18.0 Seconds (9.4-12.1) H 08/08/17 03:34 Abnormal lab findings: Abnormal lab results WBC 20.3 K/mcL (4.3-11.1) H 08/11/17 08:54 RBC 3.42 M/mcL (4.19-5.50) L 08/11/17 08:54 Hgb 8.9 g/dL (12.9-16.9) L D 08/11/17 08:54 Hct 28.6 % (37.5-50.1) L 08/11/17 08:54 MCH 26.0 pg (28.0-33.3) L 08/11/17 08:54 MCHC 31.1 g/dL (31.6-35.5) L 08/11/17 08:54 RDW 17.7 % (11.5-14.5) H 08/11/17 08:54 Neutrophils # 17.4 K/mcL (1.6-8.9) H 08/11/17 08:54 Monocytes # 1.4 K/mcL (0.0-1.3) H 08/11/17 08:54 Nucleated RBCs/100 WBC 0.1 /100 WBC (0) H 08/09/17 22:28 Toxic Granulation Present (Not Present) A 08/09/17 22:28 Large Platelets Present (Not Present) A 08/09/17 22:28 PT 18.0 Seconds (9.4-12.1) H 08/08/17 03:34 ABG pH 7.48 pH Units (7.32-7.45) H 08/09/17 10:33 ABG pO2 60 mmHg (85-104) L 08/09/17 10:33 ABG Total CO2 28 mEq/L (20-26) H 08/09/17 10:33 ABG O2 Saturation 93 % (95-98) L 08/09/17 10:33 Carbon Dioxide 30 mEq/L (23-29) H 08/11/17 08:54 BUN 26 mg/dL (8-23) H 08/11/17 08:54 BUN/Creatinine Ratio 33 (6-26) H 08/11/17 08:54 Glucose 107 mg/dL (70-105) H 08/11/17 08:54 Phosphorus 1.8 mg/dL (2.7-4.5) L 08/11/17 08:54 B-Natriuretic Peptide 182 pg/mL (Less than 100) H 08/08/17 03:34 Albumin 3.3 g/dL (3.5-5.7) L 08/08/17 03:34 Globulin 4.4 g/dL (2.4-3.5) H 08/08/17 03:34 Albumin/Globulin Ratio 0.8 (1.1-2.2) L 08/08/17 03:34 LDL Cholesterol, Calc 121 mg/dL (0-99) H 08/08/17 03:34 - Clinical Findings Intake & Output: Intake & Output 08/10/17 08/11/17 08/11/17 23:59 07:59 15:59 Intake Total 710 / 710 300 / 300 240 / 240 Output Total 350 / 350 400 / 400 300 / 300 Balance 360 / 360 -100 / -100 -60 / -60 - VTE Documentation of Mechanical Device: Intermittent pneumatic compression device Consult Discharge Plan - Plan Referrals: Margie Estrella DO [Primary Care Provider] - 08/15/17 1:30 pm
[2017-08-11] MEDS: clonazePAM 0.5 MG TABLET PO PRN (23:36)
[2017-08-12 03:16] LABS: Basophils # 0.1 K/mcL (0.0-0.2); Basophils % 0.3 %; Hematocrit 28.8 % (37.5-50.1); Hemoglobin 8.9 g/dL (12.9-16.9); Immature Granulocytes % 3.3 % (0-4); Immature Platelets 2.5 % (1.1-6.1); Lymphocytes # 1.1 K/mcL (0.6-4.6); Mean Corpuscular HGB Conc 30.9 g/dL (31.6-35.5); Mean Corpuscular Hemoglobin 25.9 pg (28.0-33.3); Mean Corpuscular Volume 83.7 fL (83.0-100.0); Mean Platelet Volume 9.2 fL (9.4-12.4); Monocytes % 5.7 %; Neutrophils # 15.2 K/mcL (1.6-8.9); Nucleated Red Blood Cells 0.1 /100 WBC (0); Platelet Count 392 K/mcL (140-400); Red Blood Count 3.44 M/mcL (4.19-5.50); Red Cell Distribution Width 17.7 % (11.5-14.5); Segmented Neutrophils % 84.7 %
[2017-08-12] MEDS: Levalbuterol Neb 1.25 MG/3 ML IH SCH ×5 (04:05→23:47)
[2017-08-12] MEDS: Ipratropium/Albuterol Neb 3 ML IH SCH ×6 (04:05→23:36)
[2017-08-12] MEDS: MethylPREDNISolone 40 MG/ML VIAL IVP SCH (06:23)
--- NOTE | 2017-08-12 08:15 | Internal Med Progress Note ---
Date of Encounter: 08/12/17 Time of Encounter: 09:48 - Assessment and plan (1) Cough with hemoptysis Current Visit: Yes Status: Acute Assessment and plan: Improving. Continue to hold anticoagulation. Blood counts have remained stable since yesterday. Pulmonology following. Patient may need bronchoscopy depending on pulmonology evaluation. (2) Acute and chronic respiratory failure Current Visit: Yes Status: Acute Assessment and plan: Resolved now. Patient on room air and saturating at 96%. We will continue to monitor by pulse oximetry. Qualifiers: Respiratory failure complication: hypoxia Qualified Code(s): J96.21 - Acute and chronic respiratory failure with hypoxia (3) Sepsis Current Visit: Yes Status: Acute Assessment and plan: No clear organism identified. WBC count is improving. Sepsis due to pneumonia. On Levaquin and Zosyn at this time. Will continue while we await sputum culture results. Qualifiers: Sepsis type: sepsis due to unspecified organism Qualified Code(s): A41.9 - Sepsis, unspecified organism (4) Atrial fibrillation with RVR Current Visit: Yes Status: Acute Assessment and plan: Rate controlled. Not on anticoagulation anymore due to hemoptysis and bleeding into right upper lobe cavity. (5) CAD (coronary artery disease) Current Visit: Yes Status: Chronic Assessment and plan: Continue aspirin, Plavix, beta lily and statin. Qualifiers: Coronary Disease-Associated Artery/Lesion type: [place] artery [place] vs. transplanted heart: eagle heart Associated angina: without angina Qualified Code(s): I25.10 - Atherosclerotic heart disease of [place] coronary artery without angina pectoris (6) COPD exacerbation Current Visit: Yes Status: Acute (7) HTN (hypertension) Current Visit: Yes Status: Chronic Assessment and plan: Blood pressure elevated this morning. Add amlodipine to hypertensive regimen Qualifiers: Hypertension type: essential hypertension Qualified Code(s): I10 - Essential (primary) hypertension (8) Pneumonia Current Visit: Yes Status: Acute Assessment and plan: Continue current antibiotics. Await sputum culture results Qualifiers: Pneumonia type: due to unspecified organism Laterality: right Lung location: unspecified part of lung Qualified Code(s): J18.9 - Pneumonia, unspecified organism (9) Anemia Current Visit: Yes Status: Acute Assessment and plan: Stable blood counts. Will continue to monitor. Anemia due to hemoptysis and bleeding in the right upper lobe cavitary lesion. Qualifiers: Anemia type: other cause Other causes of anemia: acute posthemorrhagic Qualified Code(s): D62 - Acute posthemorrhagic anemia (10) DVT prophylaxis Current Visit: Yes Status: Acute Assessment and plan: with SCDs alone at this time due to continued hemoptysis. - Subjective Interval history: Patient doing well overall. Sats remaining greater than 96% on room air. Continues to have cough and hemoptysis although this seems to be improving overall. No chest pain. No palpitations. No fever reported overnight. - Constitutional Vitals: Temp Pulse Resp BP Pulse Ox 97.7 F 79 14 180/92 99 08/12/17 07:27 08/12/17 07:27 08/12/17 07:27 08/12/17 07:27 08/12/17 07:27 General appearance: Present: cooperative, mild distress, A&O X 3, severe distress, answers questions appropriately - Neck Neck exam general surgery: Present: supple, trachea midline. Absent: lymphadenopathy - Respiratory Respiratory exam: Present: prolonged expiratory phase. Absent: accessory muscle use, rales, rhonchi, wheezes Additional comments: Coarse breath sounds bilaterally - Cardiovascular Cardiovascular exam: Present: RRR, +S1, +S2. Absent: diastolic murmur, gallop, rubs, systolic murmur - GI/Abdominal GI/Abdominal exam: Present: normal bowel sounds, soft, no peritoneal signs. Absent: distended, tenderness - Extremities Exam Extremities exam: Present: warm, radial pulses palpable and symmetrical. Absent : calf tenderness, cyanotic, pedal edema - Neurological Exam Neurological exam: Present: CN II-XII intact, oriented X3, no focal deficits. Absent: facial droop, speech deficit Internal Medicine: Result - Labs CBC & Chem 7: 08/12/17 02:56 08/11/17 08:54 Labs: Short CBC 08/11/17 08/12/17 Range/Units 08:54 02:56 WBC 20.3 H 17.9 H (4.3-11.1) K/mcL Hgb 8.9 L D 8.9 L (12.9-16.9) g/dL Hct 28.6 L 28.8 L (37.5-50.1) % Plt Count 340 392 (140-400) K/mcL Neutrophils # 17.4 H 15.2 H (1.6-8.9) K/mcL BMP 08/11/17 08:54 Sodium 140 Potassium 4.6 Chloride 106 Carbon Dioxide 30 H BUN 26 H Creatinine 0.79 Glucose 107 H Calcium 8.9 - ABG Interpretation ABG results: ABG ABG pH 7.48 pH Units (7.32-7.45) H 08/09/17 10:33 ABG pCO2 36 mmHg (35-45) 08/09/17 10:33 ABG pO2 60 mmHg (85-104) L 08/09/17 10:33 ABG O2 Saturation 93 % (95-98) L 08/09/17 10:33 PT/INR, D-dimer PT 18.0 Seconds (9.4-12.1) H 08/08/17 03:34 - VTE Documentation of Mechanical Device: Intermittent pneumatic compression device Consult Discharge Plan - Plan Referrals: Margie Estrella DO [Primary Care Provider] - 08/15/17 1:30 pm
[2017-08-12] MEDS: Piperacillin/Tazobactam 3.375 GM in 0.9 % Sodium Chloride Mini Bag 100 ML IVPB SCH ×3 (08:18→23:37)
[2017-08-12] MEDS: Levofloxacin 750 MG/150 ML 750 MG/150 ML BAG IVPB SCH (08:18)
[2017-08-12] MEDS: Gabapentin 300 MG CAPSULE PO SCH ×3 (08:19→16:33)
[2017-08-12] MEDS: hydroCHLOROthiazide 25 MG TABLET PO SCH ×2 (08:19→10:40)
[2017-08-12] MEDS: Aspirin 81 MG TAB.CHEW PO SCH ×2 (08:19→10:39)
[2017-08-12] MEDS: Verapamil ER (24 HR) 180 MG TABLET.ER PO SCH ×2 (08:19→10:39)
[2017-08-12] MEDS: predniSONE 20 MG TABLET PO SCH ×2 (08:20→10:39)
[2017-08-12] MEDS: Budesonide/Formoterol 160/4.5 1 PUFF INH IH SCH ×2 (11:37→21:34)
--- NOTE | 2017-08-12 12:07 | Pulmonology Progress Note ---
Date of Encounter: 08/12/17 Time of Encounter: 08:00 Assessment and Plan (1) Cough with hemoptysis Current Visit: Yes Status: Acute Patient is hemoptysis is coming down if it worsens again will do bronchoscopy with airway examination , will put him on schedule tomorrow will keep him NPO after midnight 08/11 Patient Hemoptysis was minimal will hold off Bronchoscopy today 08/12 still having minimal hemoptysis now he is back on Room air will hold off bronchoscopy (2) Acute and chronic respiratory failure Current Visit: Yes Status: Acute Patient is on Room air . Will continue to monitor if the hemoptysis worsen will pursue with bronchoscopy tomorrow .Patient agrees with the plan . Qualifiers: Respiratory failure complication: hypoxia Qualified Code(s): J96.21 - Acute and chronic respiratory failure with hypoxia (3) COPD exacerbation Current Visit: Yes Status: Acute To continue Bronchodilator regimen and steroids . Reviewed CT scan which showed fluid filled with bullous cavity most likely bleeding , with new ground glass opacity , the hemoptysis is coming down after stopping eliquis . Will NPo after Midnight in case we need Bronchoscopy . 08/11 minimal hemoptysis will hold off Bronchsocopy . 08/12 minimal hemloptysis will hold off Bronchoscopy (4) Congestive heart failure Current Visit: Yes Status: Acute To continue management according to primary team Qualifiers: Heart failure type: unspecified Heart failure chronicity: unspecified Qualified Code(s): I50.9 - Heart failure, unspecified (5) Pneumonia Current Visit: Yes Status: Acute To continue Zosyn and Levaquin Qualifiers: Pneumonia type: due to unspecified organism Laterality: right Lung location: unspecified part of lung Qualified Code(s): J18.9 - Pneumonia, unspecified organism Subjective Principal diagnosis: COPD exacerbation with bleeding into bullous cavity Interval history: 67 year old male with Severe COPD presented with COPD exacerbation developed hemoptysis and bleeding into bullous cavity Eliquis was stopped now the hemoptysis is minimal , cough is minimal patient is feeling lot better patient oxygenation is stable 08/11 . Patient Hemoptysis is minimal will hold off bronchoscopy today , patient cough with sputum production is also reduced . Patient feeling lot better . 08/12 Examined the cup his hemoptysis is very minimal , patient is back on Room air says he is feeling lot better . Objective PUL Vital signs: Last Vital Signs Temp 98.8 F 08/12/17 11:23 Pulse 91 08/12/17 11:23 Resp 20 08/12/17 11:23 BP 118/59 08/12/17 11:23 Pulse Ox 92 08/12/17 11:23 Auscultation: bilateral: wheezes Cardiovascular: irregular rhythm Results - Laboratory Findings CBC and BMP: 08/12/17 02:56 08/11/17 08:54 ABG ABG pH 7.48 pH Units (7.32-7.45) H 08/09/17 10:33 ABG pCO2 36 mmHg (35-45) 08/09/17 10:33 ABG pO2 60 mmHg (85-104) L 08/09/17 10:33 ABG O2 Saturation 93 % (95-98) L 08/09/17 10:33 PT/INR, D-dimer PT 18.0 Seconds (9.4-12.1) H 08/08/17 03:34 Abnormal lab findings: Abnormal lab results WBC 17.9 K/mcL (4.3-11.1) H 08/12/17 02:56 RBC 3.44 M/mcL (4.19-5.50) L 08/12/17 02:56 Hgb 8.9 g/dL (12.9-16.9) L 08/12/17 02:56 Hct 28.8 % (37.5-50.1) L 08/12/17 02:56 MCH 25.9 pg (28.0-33.3) L 08/12/17 02:56 MCHC 30.9 g/dL (31.6-35.5) L 08/12/17 02:56 RDW 17.7 % (11.5-14.5) H 08/12/17 02:56 MPV 9.2 fL (9.4-12.4) L 08/12/17 02:56 Neutrophils # 15.2 K/mcL (1.6-8.9) H 08/12/17 02:56 Nucleated RBCs/100 WBC 0.1 /100 WBC (0) H 08/12/17 02:56 Toxic Granulation Present (Not Present) A 08/09/17 22:28 Large Platelets Present (Not Present) A 08/09/17 22:28 PT 18.0 Seconds (9.4-12.1) H 08/08/17 03:34 ABG pH 7.48 pH Units (7.32-7.45) H 08/09/17 10:33 ABG pO2 60 mmHg (85-104) L 08/09/17 10:33 ABG Total CO2 28 mEq/L (20-26) H 08/09/17 10:33 ABG O2 Saturation 93 % (95-98) L 08/09/17 10:33 Carbon Dioxide 30 mEq/L (23-29) H 08/11/17 08:54 BUN 26 mg/dL (8-23) H 08/11/17 08:54 BUN/Creatinine Ratio 33 (6-26) H 08/11/17 08:54 Glucose 107 mg/dL (70-105) H 08/11/17 08:54 Phosphorus 1.8 mg/dL (2.7-4.5) L 08/11/17 08:54 B-Natriuretic Peptide 182 pg/mL (Less than 100) H 08/08/17 03:34 Albumin 3.3 g/dL (3.5-5.7) L 08/08/17 03:34 Globulin 4.4 g/dL (2.4-3.5) H 08/08/17 03:34 Albumin/Globulin Ratio 0.8 (1.1-2.2) L 08/08/17 03:34 LDL Cholesterol, Calc 121 mg/dL (0-99) H 08/08/17 03:34 - Microbiology Findings Microbiology Findings: Microbiology, Last 48 Hours 08/11/17 16:56 Sputum Culture - Preliminary Sputum - Clinical Findings Intake & Output: Intake & Output 08/11/17 08/12/17 08/12/17 23:59 07:59 15:59 Intake Total 600 / 600 100 / 100 250 / 250 Output Total 550 / 550 1050 / 1050 350 / 350 Balance 50 / 50 -950 / -950 -100 / -100 Weight 64.5 kg - VTE Documentation of Mechanical Device: Intermittent pneumatic compression device Consult Discharge Plan - Plan Referrals: Margie Estrella DO [Primary Care Provider] - 08/15/17 1:30 pm
[2017-08-12] MEDS: *HR* OxyCODONE/APAP 10/325 TABLET PO PRN ×3 (12:38→22:46)
[2017-08-12] MEDS: clonazePAM 0.5 MG TABLET PO PRN (22:46)
[2017-08-13] MEDS: Ipratropium/Albuterol Neb 3 ML IH SCH ×5 (04:06→20:33)
[2017-08-13] MEDS: Budesonide/Formoterol 160/4.5 1 PUFF INH IH SCH ×2 (07:55→20:33)
[2017-08-13] MEDS: Aspirin 81 MG TAB.CHEW PO SCH (08:10)
[2017-08-13] MEDS: Verapamil ER (24 HR) 180 MG TABLET.ER PO SCH (08:35)
[2017-08-13] MEDS: hydroCHLOROthiazide 25 MG TABLET PO SCH (08:35)
[2017-08-13] MEDS: predniSONE 20 MG TABLET PO SCH (08:36)
[2017-08-13] MEDS: Gabapentin 300 MG CAPSULE PO SCH ×3 (08:36→20:10)
[2017-08-13] MEDS: Piperacillin/Tazobactam 3.375 GM in 0.9 % Sodium Chloride Mini Bag 100 ML IVPB SCH ×2 (08:36→15:27)
[2017-08-13] MEDS: Levofloxacin 750 MG/150 ML 750 MG/150 ML BAG IVPB SCH (08:37)
[2017-08-13] MEDS: *HR* OxyCODONE/APAP 10/325 TABLET PO PRN ×2 (08:44→20:10)
--- NOTE | 2017-08-13 09:21 | Pulmonology Progress Note ---
Date of Encounter: 08/13/17 Time of Encounter: 09:00 Assessment and Plan (1) Cough with hemoptysis Current Visit: Yes Status: Acute Patient is hemoptysis is coming down if it worsens again will do bronchoscopy with airway examination , will put him on schedule tomorrow will keep him NPO after midnight 08/11 Patient Hemoptysis was minimal will hold off Bronchoscopy today 08/12 still having minimal hemoptysis now he is back on Room air will hold off bronchoscopy 08/13 still having minimal hemoptyis back on Room air with improved aeration in the RUL , will Discuss case with our Interventional Shipping And Receiving Specialist for his opinion before sending him home . To Keep him NPO after Midnight . (2) Acute and chronic respiratory failure Current Visit: Yes Status: Resolved Patient is on Room air . Will continue to monitor if the hemoptysis worsen will pursue with bronchoscopy tomorrow .Patient agrees with the plan . Qualifiers: Respiratory failure complication: hypoxia Qualified Code(s): J96.21 - Acute and chronic respiratory failure with hypoxia (3) COPD exacerbation Current Visit: Yes Status: Acute To continue Bronchodilator regimen and steroids . Reviewed CT scan which showed fluid filled with bullous cavity most likely bleeding , with new ground glass opacity , the hemoptysis is coming down after stopping eliquis . Will NPo after Midnight in case we need Bronchoscopy . 08/11 minimal hemoptysis will hold off Bronchsocopy . 08/12 minimal hemloptysis will hold off Bronchoscopy 08/13 minimal hemoptysis will hold off Bronchoscopy will discuss case with our interventional three dimensional art instructor before discharge (4) Congestive heart failure Current Visit: Yes Status: Acute To continue management according to primary team Qualifiers: Heart failure type: unspecified Heart failure chronicity: unspecified Qualified Code(s): I50.9 - Heart failure, unspecified (5) Pneumonia Current Visit: Yes Status: Acute To continue Zosyn and Levaquin for RUL pneumonia the aeration of the RUL is better than previous CXR Qualifiers: Pneumonia type: due to unspecified organism Laterality: right Lung location: unspecified part of lung Qualified Code(s): J18.9 - Pneumonia, unspecified organism Subjective Principal diagnosis: COPD exacerbation with bleeding into bullous cavity Interval history: 67 year old male with Severe COPD presented with COPD exacerbation developed hemoptysis and bleeding into bullous cavity Eliquis was stopped now the hemoptysis is minimal , cough is minimal patient is feeling lot better patient oxygenation is stable 08/11 . Patient Hemoptysis is minimal will hold off bronchoscopy today , patient cough with sputum production is also reduced . Patient feeling lot better . 08/12 Examined the cup his hemoptysis is very minimal , patient is back on Room air says he is feeling lot better . 08/13 same amount of hemoptysis , patient denies any shortness of breadth lying comfortably resting on Room air Objective PUL Vital signs: Last Vital Signs Temp 97.6 F 08/13/17 06:53 Pulse 80 08/13/17 06:53 Resp 20 08/13/17 07:55 BP 143/73 08/13/17 06:53 Pulse Ox 96 08/13/17 07:55 Auscultation: bilateral: wheezes (scattered wheezes ) Results - Laboratory Findings CBC and BMP: 08/12/17 02:56 08/11/17 08:54 ABG ABG pH 7.48 pH Units (7.32-7.45) H 08/09/17 10:33 ABG pCO2 36 mmHg (35-45) 08/09/17 10:33 ABG pO2 60 mmHg (85-104) L 08/09/17 10:33 ABG O2 Saturation 93 % (95-98) L 08/09/17 10:33 PT/INR, D-dimer PT 18.0 Seconds (9.4-12.1) H 08/08/17 03:34 Abnormal lab findings: Abnormal lab results WBC 17.9 K/mcL (4.3-11.1) H 08/12/17 02:56 RBC 3.44 M/mcL (4.19-5.50) L 08/12/17 02:56 Hgb 8.9 g/dL (12.9-16.9) L 08/12/17 02:56 Hct 28.8 % (37.5-50.1) L 08/12/17 02:56 MCH 25.9 pg (28.0-33.3) L 08/12/17 02:56 MCHC 30.9 g/dL (31.6-35.5) L 08/12/17 02:56 RDW 17.7 % (11.5-14.5) H 08/12/17 02:56 MPV 9.2 fL (9.4-12.4) L 08/12/17 02:56 Neutrophils # 15.2 K/mcL (1.6-8.9) H 08/12/17 02:56 Nucleated RBCs/100 WBC 0.1 /100 WBC (0) H 08/12/17 02:56 Toxic Granulation Present (Not Present) A 08/09/17 22:28 Large Platelets Present (Not Present) A 08/09/17 22:28 PT 18.0 Seconds (9.4-12.1) H 08/08/17 03:34 ABG pH 7.48 pH Units (7.32-7.45) H 08/09/17 10:33 ABG pO2 60 mmHg (85-104) L 08/09/17 10:33 ABG Total CO2 28 mEq/L (20-26) H 08/09/17 10:33 ABG O2 Saturation 93 % (95-98) L 08/09/17 10:33 Carbon Dioxide 30 mEq/L (23-29) H 08/11/17 08:54 BUN 26 mg/dL (8-23) H 08/11/17 08:54 BUN/Creatinine Ratio 33 (6-26) H 08/11/17 08:54 Glucose 107 mg/dL (70-105) H 08/11/17 08:54 Phosphorus 1.8 mg/dL (2.7-4.5) L 08/11/17 08:54 B-Natriuretic Peptide 182 pg/mL (Less than 100) H 08/08/17 03:34 Albumin 3.3 g/dL (3.5-5.7) L 08/08/17 03:34 Globulin 4.4 g/dL (2.4-3.5) H 08/08/17 03:34 Albumin/Globulin Ratio 0.8 (1.1-2.2) L 08/08/17 03:34 LDL Cholesterol, Calc 121 mg/dL (0-99) H 08/08/17 03:34 - Microbiology Findings Microbiology Findings: Microbiology, Last 48 Hours 08/11/17 16:56 Sputum Culture - Preliminary Sputum Gram Negative Gary Yeast Species - Clinical Findings Intake & Output: Intake & Output 08/12/17 08/13/17 08/13/17 23:59 07:59 15:59 Intake Total 100 / 100 100 / 100 Output Total 275 / 275 700 / 700 Balance -175 / -175 -600 / -600 - VTE Documentation of Mechanical Device: Intermittent pneumatic compression device Consult Discharge Plan - Plan Referrals: Margie Estrella DO [Primary Care Provider] - 08/15/17 1:30 pm
--- NOTE | 2017-08-13 10:21 | Internal Med Progress Note ---
Date of Encounter: 08/13/17 Time of Encounter: 10:00 - Assessment and plan (1) Cough with hemoptysis Current Visit: Yes Status: Acute Assessment and plan: With bleeding into right upper lobe cavitary lesion. Pulmonology following. No bronchial plan for today. Resume diet. Stable blood counts. We will continue to monitor for now. Anticoagulation stopped. (2) Acute and chronic respiratory failure Current Visit: Yes Status: Resolved Assessment and plan: Improved. Patient is on room air at this time. Qualifiers: Respiratory failure complication: hypoxia Qualified Code(s): J96.21 - Acute and chronic respiratory failure with hypoxia (3) Sepsis Current Visit: Yes Status: Acute Assessment and plan: Sputum culture growing gram-negative rods and yeast. Continue current antibiotics while we await culture results. Qualifiers: Sepsis type: sepsis due to unspecified organism Qualified Code(s): A41.9 - Sepsis, unspecified organism (4) Atrial fibrillation with RVR Current Visit: Yes Status: Chronic Assessment and plan: Rate controlled. Continue metoprolol. (5) CAD (coronary artery disease) Current Visit: Yes Status: Chronic Assessment and plan: Continue aspirin and statin and Plavix. Qualifiers: Coronary Disease-Associated Artery/Lesion type: [place] artery [place] vs. transplanted heart: [place] heart Associated angina: without angina Qualified Code(s): I25.10 - Atherosclerotic heart disease of [place] coronary artery without angina pectoris (6) COPD exacerbation Current Visit: Yes Status: Acute Assessment and plan: Continue current management with bronchodilators. Tapering steroids. (7) HTN (hypertension) Current Visit: Yes Status: Chronic Assessment and plan: Blood pressure is fairly controlled. Continue antihypertensive regimen. Qualifiers: Hypertension type: essential hypertension Qualified Code(s): I10 - Essential (primary) hypertension (8) Pneumonia Current Visit: Yes Status: Acute Assessment and plan: Awaiting final culture results. Sputum culture growing gram-negative rods. Qualifiers: Pneumonia type: due to unspecified organism Laterality: right Lung location: unspecified part of lung Qualified Code(s): J18.9 - Pneumonia, unspecified organism (9) Anemia Current Visit: Yes Status: Acute Assessment and plan: Stable. Continue to monitor. Related to hemoptysis Qualifiers: Anemia type: other cause Other causes of anemia: acute posthemorrhagic Qualified Code(s): D62 - Acute posthemorrhagic anemia (10) DVT prophylaxis Current Visit: Yes Status: Acute Assessment and plan: SCDs alone. Not on anticoagulation due to hemoptysis - Subjective Interval history: Patient remained stable. No new complaints at this time. Cough and shortness of breath and wheezing. Hemoptysis persists but is not getting any worse. Remains on room air. - Constitutional Vitals: Temp Pulse Resp BP Pulse Ox 97.6 F 80 20 143/73 96 08/13/17 06:53 08/13/17 06:53 08/13/17 07:55 08/13/17 06:53 08/13/17 07:55 General appearance: Present: cooperative, mild distress, A&O X 3, severe distress, answers questions appropriately - Neck Neck exam general surgery: Present: supple, trachea midline. Absent: lymphadenopathy - Respiratory Respiratory exam: Present: prolonged expiratory phase, wheezes. Absent: accessory muscle use, rales, rhonchi - Cardiovascular Cardiovascular exam: Present: RRR, +S1, +S2. Absent: diastolic murmur, gallop, rubs, systolic murmur - GI/Abdominal GI/Abdominal exam: Present: normal bowel sounds, soft, no peritoneal signs. Absent: distended, tenderness - Extremities Exam Extremities exam: Present: warm, radial pulses palpable and symmetrical. Absent : calf tenderness, cyanotic, pedal edema - Neurological Exam Neurological exam: Present: CN II-XII intact, oriented X3, no focal deficits. Absent: facial droop, speech deficit - Skin Skin exam: Present: dry, intact Internal Medicine: Result - Labs CBC & Chem 7: 08/12/17 02:56 08/11/17 08:54 - ABG Interpretation ABG results: ABG ABG pH 7.48 pH Units (7.32-7.45) H 08/09/17 10:33 ABG pCO2 36 mmHg (35-45) 08/09/17 10:33 ABG pO2 60 mmHg (85-104) L 08/09/17 10:33 ABG O2 Saturation 93 % (95-98) L 08/09/17 10:33 PT/INR, D-dimer PT 18.0 Seconds (9.4-12.1) H 08/08/17 03:34 - Impressions Impressions Chest X-Ray 08/13/17 07:00 IMPRESSION: Improved aeration of right upper lobe, with suggestion of right apical pneumothorax. Continued follow-up is recommended. Otherwise, no significant interval change since previous examination. D/ / 08/13/2017 08:16:17 Refugio Rodriguez MD / [email or web address] Interpreting Provider: Refugio Rodriguez MD - VTE Documentation of Mechanical Device: Intermittent pneumatic compression device Consult Discharge Plan - Plan Referrals: Margie Estrella DO [Primary Care Provider] - 08/15/17 1:30 pm
[2017-08-13] MEDS: Levalbuterol Neb 1.25 MG/3 ML IH SCH ×2 (15:23→20:34)
[2017-08-14] MEDS: Ipratropium/Albuterol Neb 3 ML IH SCH ×3 (00:04→07:57)
[2017-08-14] MEDS: Piperacillin/Tazobactam 3.375 GM in 0.9 % Sodium Chloride Mini Bag 100 ML IVPB SCH ×3 (00:17→15:48)
[2017-08-14] MEDS: Levalbuterol Neb 1.25 MG/3 ML IH SCH ×4 (04:22→21:42)
[2017-08-14] MEDS: *HR* Metoprolol 5 MG/5 ML VIAL IVP PRN (05:57)
--- NOTE | 2017-08-14 07:20 | Event Note ---
Date of Encounter: 08/14/17 Time of Encounter: 07:20 Called to see pt in A-Flutter with RVR. Not c/o cp and BP stable. Gave his PRN lopressor and his scheduled PO Metoprolol early. His HR is improving to 120s and I signed out acute change to his regular doctor.
[2017-08-14 07:32] LABS: Basophils # 0.1 K/mcL (0.0-0.2); Basophils % 0.5 %; Eosinophils # 0.1 K/mcL (0.0-0.6); Eosinophils % 0.3 %; Hematocrit 32.5 % (37.5-50.1); Hemoglobin 10.4 g/dL (12.9-16.9); Immature Granulocytes % 5.1 % (0-4); Lymphocytes # 2.9 K/mcL (0.6-4.6); Lymphocytes % 11.9 %; Mean Corpuscular Hemoglobin 25.9 pg (28.0-33.3); Mean Corpuscular Volume 80.8 fL (83.0-100.0); Mean Platelet Volume 9.2 fL (9.4-12.4); Monocytes # 1.4 K/mcL (0.0-1.3); Monocytes % 5.5 %; Neutrophils # 18.9 K/mcL (1.6-8.9); Platelet Count 360 K/mcL (140-400); Red Blood Count 4.02 M/mcL (4.19-5.50); Red Cell Distribution Width 18.3 % (11.5-14.5); Segmented Neutrophils % 76.7 %
[2017-08-14] MEDS: Budesonide/Formoterol 160/4.5 1 PUFF INH IH SCH ×2 (07:57→21:42)
[2017-08-14 08:30] LABS: BUN/Creatinine Ratio 29 (6-26); Blood Urea Nitrogen 22 mg/dL (8-23); Calcium 8.8 mg/dL (8.6-10.3); Carbon Dioxide 27 mEq/L (23-29); Chloride 103 mEq/L (98-107); Glucose 85 mg/dL (70-105); Osmolality,Calculated 287 (280-300); Potassium 3.6 mEq/L (3.5-5.1); Sodium 137 mEq/L (136-145); eGFR For Non-African Americans > 60 (> 60)
[2017-08-14] MEDS: hydroCHLOROthiazide 25 MG TABLET PO SCH (08:32)
[2017-08-14] MEDS: clonazePAM 0.5 MG TABLET PO PRN (08:32)
[2017-08-14] MEDS: Gabapentin 300 MG CAPSULE PO SCH ×3 (08:32→21:30)
[2017-08-14] MEDS: Verapamil ER (24 HR) 180 MG TABLET.ER PO SCH (08:32)
[2017-08-14] MEDS: predniSONE 20 MG TABLET PO SCH (08:33)
[2017-08-14] MEDS: Aspirin 81 MG TAB.CHEW PO SCH (08:33)
[2017-08-14 08:34] LABS: Platelet Estimate Normal (Normal)
[2017-08-14] MEDS: Levofloxacin 750 MG/150 ML 750 MG/150 ML BAG IVPB SCH (08:34)
[2017-08-14 08:35] LABS: Anisocytosis 1+ (Not Present)
[2017-08-14] MEDS ORDERED: Ipratropium/Albuterol Neb 3 ML IH PRN (09:37)
--- NOTE | 2017-08-14 09:55 | Pulmonology Progress Note ---
Date of Encounter: 08/14/17 Time of Encounter: 07:50 Assessment and Plan (1) Cough with hemoptysis Current Visit: Yes Status: Acute Patient hemoptysis has slowed down now and and offered bronchoscopy, patient declined and he will think about it. Discussed with the nurse to resume diet and keep him nothing by mouth postmidnight in case he will need bronchoscopy tomorrow. Overall prognosis is poor and to continue current treatment. (2) Acute exacerbation of chronic obstructive airways disease Current Visit: No Status: Suspected Continue bronchodilators with systemic steroid as well as antibiotics Subjective Principal diagnosis: COPD exacerbation with bleeding into bullous cavity Interval history: Patient stated his hemoptysis is less and his breathing slightly better. Objective PUL Vital signs: Last Vital Signs Temp 99.7 F H 08/14/17 06:41 Pulse 90 08/14/17 06:41 Resp 22 08/14/17 07:57 BP 104/57 08/14/17 06:41 Pulse Ox 90 08/14/17 07:57 General appearance: appears uncomfortable Eyes: nonicteric Mallampati (class): 2 Neck: supple Effort: mildly labored Auscultation: bilateral: diminished breath sounds Percussion: bilateral: not dull Cardiovascular: irregular rhythm Gastrointestinal: normoactive bowel sounds, non-distended Extremities: cyanosis normal mental status, non-focal exam anxious Results - Laboratory Findings CBC and BMP: 08/14/17 07:17 08/14/17 07:17 ABG ABG pH 7.48 pH Units (7.32-7.45) H 08/09/17 10:33 ABG pCO2 36 mmHg (35-45) 08/09/17 10:33 ABG pO2 60 mmHg (85-104) L 08/09/17 10:33 ABG O2 Saturation 93 % (95-98) L 08/09/17 10:33 PT/INR, D-dimer PT 18.0 Seconds (9.4-12.1) H 08/08/17 03:34 Abnormal lab findings: Abnormal lab results WBC 24.6 K/mcL (4.3-11.1) H 08/14/17 07:17 RBC 4.02 M/mcL (4.19-5.50) L 08/14/17 07:17 Hgb 10.4 g/dL (12.9-16.9) L D 08/14/17 07:17 Hct 32.5 % (37.5-50.1) L 08/14/17 07:17 MCV 80.8 fL (83.0-100.0) L 08/14/17 07:17 MCH 25.9 pg (28.0-33.3) L 08/14/17 07:17 RDW 18.3 % (11.5-14.5) H 08/14/17 07:17 MPV 9.2 fL (9.4-12.4) L 08/14/17 07:17 Immature Gran % 5.1 % (0-4) H 08/14/17 07:17 Neutrophils # 18.9 K/mcL (1.6-8.9) H 08/14/17 07:17 Monocytes # 1.4 K/mcL (0.0-1.3) H 08/14/17 07:17 Nucleated RBCs/100 WBC 0.1 /100 WBC (0) H 08/12/17 02:56 Toxic Granulation Present (Not Present) A 08/09/17 22:28 Large Platelets Present (Not Present) A 08/09/17 22:28 Anisocytosis 1+ (Not Present) A 08/14/17 07:17 PT 18.0 Seconds (9.4-12.1) H 08/08/17 03:34 ABG pH 7.48 pH Units (7.32-7.45) H 08/09/17 10:33 ABG pO2 60 mmHg (85-104) L 08/09/17 10:33 ABG Total CO2 28 mEq/L (20-26) H 08/09/17 10:33 ABG O2 Saturation 93 % (95-98) L 08/09/17 10:33 BUN/Creatinine Ratio 29 (6-26) H 08/14/17 07:17 Phosphorus 1.8 mg/dL (2.7-4.5) L 08/11/17 08:54 B-Natriuretic Peptide 182 pg/mL (Less than 100) H 08/08/17 03:34 Albumin 3.3 g/dL (3.5-5.7) L 08/08/17 03:34 Globulin 4.4 g/dL (2.4-3.5) H 08/08/17 03:34 Albumin/Globulin Ratio 0.8 (1.1-2.2) L 08/08/17 03:34 LDL Cholesterol, Calc 121 mg/dL (0-99) H 08/08/17 03:34 - Microbiology Findings Microbiology Findings: Microbiology, Last 48 Hours 08/11/17 16:56 Sputum Culture - Preliminary Sputum Gram Negative Gary Yeast Species Gram Negative Gary#2 - Clinical Findings Intake & Output: Intake & Output 08/13/17 08/14/17 08/14/17 23:59 07:59 15:59 Intake Total 100 / 100 100 / 100 50 / 50 Balance 100 / 100 100 / 100 50 / 50 Weight 65.7 kg - VTE Documentation of Mechanical Device: Intermittent pneumatic compression device Consult Discharge Plan - Plan Referrals: Margie Estrella DO [Primary Care Provider] - 08/15/17 1:30 pm
--- NOTE | 2017-08-14 13:38 | Internal Med Progress Note ---
Date of Encounter: 08/14/17 Time of Encounter: 09:30 - Assessment and plan (1) Cough with hemoptysis Current Visit: Yes Status: Acute Assessment and plan: With underlying COPD and right upper lobe cavity with possible bleeding into cavity. Improving hemoptysis. Pulmonology recommended bronchoscopy but patient reluctant at this time. Continue to hold anticoagulation. (2) Acute and chronic respiratory failure Current Visit: Yes Status: Acute Assessment and plan: He is dyspneic and tachypneic today. Placed back on nasal cannula. Continue O2 supplementation and treat underlying COPD. Qualifiers: Respiratory failure complication: hypoxia Qualified Code(s): J96.21 - Acute and chronic respiratory failure with hypoxia (3) Sepsis Current Visit: Yes Status: Acute Assessment and plan: Sputum culture growing 2 gram-negative rods. Blood cultures negative. On Zosyn and Levaquin. Await Final culture results before changing antibiotics. Qualifiers: Sepsis type: sepsis due to unspecified organism Qualified Code(s): A41.9 - Sepsis, unspecified organism (4) Atrial fibrillation with RVR Current Visit: Yes Status: Chronic Assessment and plan: Patient went into rapid A. fib earlier this morning. Responded well to IV metoprolol. Heart rate is better controlled now. Continue oral metoprolol at current dose. Continue monitoring with telemetry. Rapid A. fib likely caused by hypoxia and acute respiratory distress. (5) CAD (coronary artery disease) Current Visit: Yes Status: Chronic Assessment and plan: On aspirin and Plavix. Qualifiers: Coronary Disease-Associated Artery/Lesion type: [place] artery [place] vs. transplanted heart: [place] heart Associated angina: without angina Qualified Code(s): I25.10 - Atherosclerotic heart disease of [place] coronary artery without angina pectoris (6) COPD exacerbation Current Visit: Yes Status: Acute Assessment and plan: continue bronchodilators. On oral prednisone. (7) HTN (hypertension) Current Visit: Yes Status: Chronic Assessment and plan: Controlled at this time. Patient having low normal blood pressure. We will continue to monitor closely. Qualifiers: Hypertension type: essential hypertension Qualified Code(s): I10 - Essential (primary) hypertension (8) Pneumonia Current Visit: Yes Status: Acute Assessment and plan: Being managed with Zosyn and Levaquin. Awaiting sputum culture results. Qualifiers: Pneumonia type: due to unspecified organism Laterality: right Lung location: unspecified part of lung Qualified Code(s): J18.9 - Pneumonia, unspecified organism (9) Anemia Current Visit: Yes Status: Acute Assessment and plan: Blood counts improved today. Hemoglobin 10.4. acute on chronic anemia related to hemoptysis Qualifiers: Anemia type: other cause Other causes of anemia: acute posthemorrhagic Qualified Code(s): D62 - Acute posthemorrhagic anemia (10) DVT prophylaxis Current Visit: Yes Status: Acute Assessment and plan: on SCDs alone. No medical anticoagulation due to hemoptysis - Subjective Interval history: Patient is feeling short of breath and having palpitations. His heart rhythm went into A. fib with RVR earlier this morning. He is also continued to have mild amount of hemodialysis. Pulmonology evaluated him earlier today and recommended bronchoscopy. He declined this procedure at this time and will reconsider it. He denies any chest pain. Does feel anxious and short of breath. - Constitutional Vitals: Temp Pulse Resp BP Pulse Ox 98.3 F 85 20 90/53 92 08/14/17 10:48 08/14/17 10:48 08/14/17 11:01 08/14/17 10:48 08/14/17 11:01 General appearance: Present: cooperative, mild distress, A&O X 3, severe distress, answers questions appropriately - Neck Neck exam general surgery: Present: supple, trachea midline. Absent: lymphadenopathy - Respiratory Respiratory exam: Present: prolonged expiratory phase, wheezes. Absent: accessory muscle use, rales, rhonchi - Cardiovascular Cardiovascular exam: Present: RRR, +S1, +S2. Absent: diastolic murmur, gallop, rubs, systolic murmur - GI/Abdominal GI/Abdominal exam: Present: normal bowel sounds, soft, no peritoneal signs. Absent: distended, tenderness - Extremities Exam Extremities exam: Present: warm, radial pulses palpable and symmetrical. Absent : calf tenderness, cyanotic, pedal edema - Neurological Exam Neurological exam: Present: CN II-XII intact, oriented X3, no focal deficits. Absent: facial droop, speech deficit - Psychiatric Psychiatric exam: Present: anxious Internal Medicine: Result - Labs CBC & Chem 7: 08/14/17 07:17 08/14/17 07:17 Labs: Short CBC 08/14/17 Range/Units 07:17 WBC 24.6 H (4.3-11.1) K/mcL Hgb 10.4 L D (12.9-16.9) g/dL Hct 32.5 L (37.5-50.1) % Plt Count 360 (140-400) K/mcL Neutrophils # 18.9 H (1.6-8.9) K/mcL BMP 08/14/17 07:17 Sodium 137 Potassium 3.6 Chloride 103 Carbon Dioxide 27 BUN 22 Creatinine 0.77 Glucose 85 Calcium 8.8 - ABG Interpretation ABG results: ABG ABG pH 7.48 pH Units (7.32-7.45) H 08/09/17 10:33 ABG pCO2 36 mmHg (35-45) 08/09/17 10:33 ABG pO2 60 mmHg (85-104) L 08/09/17 10:33 ABG O2 Saturation 93 % (95-98) L 08/09/17 10:33 PT/INR, D-dimer PT 18.0 Seconds (9.4-12.1) H 08/08/17 03:34 - Impressions Impressions Chest X-Ray 08/13/17 07:00 IMPRESSION: 1. Improved aeration of right upper lobe, with suggestion of right apical pneumothorax. Short interval follow-up is recommended. 2. Otherwise, no significant interval change since previous examination. The findings were sent to the [facility]iology [facility] to be communicated to a licensed caregiver. D/ / 08/13/2017 08:16:17 Refugio Rodriguez MD / dang Interpreting Provider: Refugio Rodriguez MD - VTE Documentation of Mechanical Device: Intermittent pneumatic compression device Consult Discharge Plan - Plan Referrals: Margie Estrella DO [Primary Care Provider] - 08/15/17 1:30 pm
[2017-08-14] MEDS: *HR* OxyCODONE/APAP 10/325 TABLET PO PRN (21:30)
[2017-08-15] MEDS: Piperacillin/Tazobactam 3.375 GM in 0.9 % Sodium Chloride Mini Bag 100 ML IVPB SCH ×2 (00:31→11:39)
[2017-08-15] MEDS: *HR* OxyCODONE/APAP 10/325 TABLET PO PRN ×2 (04:29→09:30)
[2017-08-15] MEDS: Levalbuterol Neb 1.25 MG/3 ML IH SCH ×4 (04:38→21:51)
[2017-08-15 07:25] LABS: Platelet Count 358 K/mcL (140-400)
[2017-08-15 07:27] LABS: Hemoglobin 9.9 g/dL (12.9-16.9); Mean Corpuscular HGB Conc 31.9 g/dL (31.6-35.5); Mean Corpuscular Hemoglobin 26.2 pg (28.0-33.3); Mean Platelet Volume 9.5 fL (9.4-12.4); Red Blood Count 3.78 M/mcL (4.19-5.50); Red Cell Distribution Width 18.6 % (11.5-14.5)
[2017-08-15 07:29] LABS: BUN/Creatinine Ratio 33 (6-26); Blood Urea Nitrogen 31 mg/dL (8-23); Calcium 8.5 mg/dL (8.6-10.3); Carbon Dioxide 29 mEq/L (23-29); Chloride 102 mEq/L (98-107); Glucose 117 mg/dL (70-105); Osmolality,Calculated 294 (280-300); Potassium 3.3 mEq/L (3.5-5.1); Sodium 138 mEq/L (136-145); eGFR For Non-African Americans > 60 (> 60)
[2017-08-15 08:23] LABS: Lymphocytes # 5.2 K/mcL (0.6-4.6); Neutrophils # 23.5 K/mcL (1.6-8.9); Platelet Estimate Normal (Normal); Smudge Cells Present (Not Present)
[2017-08-15] MEDS: Gabapentin 300 MG CAPSULE PO SCH ×3 (09:12→20:11)
[2017-08-15] MEDS: predniSONE 20 MG TABLET PO SCH (09:14)
[2017-08-15] MEDS: Verapamil ER (24 HR) 180 MG TABLET.ER PO SCH (09:15)
[2017-08-15] MEDS: hydroCHLOROthiazide 25 MG TABLET PO SCH (09:15)
[2017-08-15] MEDS: Aspirin 81 MG TAB.CHEW PO SCH (09:16)
[2017-08-15] MEDS: Levofloxacin 750 MG/150 ML 750 MG/150 ML BAG IVPB SCH (09:17)
[2017-08-15] MEDS: Budesonide/Formoterol 160/4.5 1 PUFF INH IH SCH ×2 (09:56→21:51)
[2017-08-15] MEDS ORDERED: 0.9 % Sodium Chloride 500 ML IVC ONE (12:33)
[2017-08-15] MEDS ORDERED: Meropenem 1,000 MG in 0.9 % Sodium Chloride Mini Bag 100 ML IVPB SCH (13:00)
[2017-08-15] MEDS ORDERED: 0.9 % Sodium Chloride 1,000 ML IVC ONE (15:51)
--- NOTE | 2017-08-15 15:55 | Pulmonology Progress Note ---
Date of Encounter: 08/15/17 Time of Encounter: 13:30 Assessment and Plan (1) Cough with hemoptysis Current Visit: Yes Status: Resolved Patient hemoptysis has slowed down now and and offered bronchoscopy, patient declined and he will think about it. Discussed with the nurse to resume diet and keep him nothing by mouth postmidnight in case he will need bronchoscopy tomorrow. Overall prognosis is poor and to continue current treatment. 08/15 Today patient is feeling better and his hemoptysis has improved. Discussed with primary team regarding case culture and to change his antibiotics. Patient does not want bronchoscopy and he does not want to be nothing by mouth we will clinically monitor him please call for any questions. I also recommended infectious disease for recommendations regarding antibiotics. (2) Acute exacerbation of chronic obstructive airways disease Current Visit: No Status: Suspected Continue bronchodilators with systemic steroid as well as antibiotics Subjective Principal diagnosis: COPD exacerbation with bleeding into bullous cavity Interval history: Patient stated his hemoptysis is better and he is feeling better Objective PUL Vital signs: Last Vital Signs Temp 97.9 F 08/15/17 15:28 Pulse 71 08/15/17 15:28 Resp 20 08/15/17 15:28 BP 74/46 08/15/17 15:45 Pulse Ox 90 08/15/17 15:28 General appearance: no acute distress Eyes: nonicteric ENT: oropharynx moist Neck: supple Effort: mildly labored Auscultation: bilateral: diminished breath sounds, egophony Percussion: bilateral: not dull Cardiovascular: regular rate and rhythm Gastrointestinal: normoactive bowel sounds, non-distended Extremities: no cyanosis normal mental status, non-focal exam mood appropriate Results - Laboratory Findings CBC and BMP: 08/15/17 06:43 08/15/17 06:43 ABG ABG pH 7.48 pH Units (7.32-7.45) H 08/09/17 10:33 ABG pCO2 36 mmHg (35-45) 08/09/17 10:33 ABG pO2 60 mmHg (85-104) L 08/09/17 10:33 ABG O2 Saturation 93 % (95-98) L 08/09/17 10:33 PT/INR, D-dimer PT 18.0 Seconds (9.4-12.1) H 08/08/17 03:34 Abnormal lab findings: Abnormal lab results WBC 32.6 K/mcL (4.3-11.1) H* 08/15/17 06:43 RBC 3.78 M/mcL (4.19-5.50) L 08/15/17 06:43 Hgb 9.9 g/dL (12.9-16.9) L 08/15/17 06:43 Hct 31.0 % (37.5-50.1) L 08/15/17 06:43 MCV 82.0 fL (83.0-100.0) L 08/15/17 06:43 MCH 26.2 pg (28.0-33.3) L 08/15/17 06:43 RDW 18.6 % (11.5-14.5) H 08/15/17 06:43 Immature Gran % 5.1 % (0-4) H 08/14/17 07:17 Band Neutrophils % 16.0 % (0-4) H 08/15/17 06:43 Neutrophils # 23.5 K/mcL (1.6-8.9) H 08/15/17 06:43 Lymphocytes # 5.2 K/mcL (0.6-4.6) H 08/15/17 06:43 Monocytes # 2.0 K/mcL (0.0-1.3) H 08/15/17 06:43 Eosinophils # 2.0 K/mcL (0.0-0.6) H 08/15/17 06:43 Nucleated RBCs/100 WBC 0.1 /100 WBC (0) H 08/12/17 02:56 Smudge Cells Present (Not Present) A 08/15/17 06:43 Toxic Granulation Present (Not Present) A 08/09/17 22:28 Large Platelets Present (Not Present) A 08/09/17 22:28 Anisocytosis 1+ (Not Present) A 08/14/17 07:17 PT 18.0 Seconds (9.4-12.1) H 08/08/17 03:34 ABG pH 7.48 pH Units (7.32-7.45) H 08/09/17 10:33 ABG pO2 60 mmHg (85-104) L 08/09/17 10:33 ABG Total CO2 28 mEq/L (20-26) H 08/09/17 10:33 ABG O2 Saturation 93 % (95-98) L 08/09/17 10:33 Potassium 3.3 mEq/L (3.5-5.1) L 08/15/17 06:43 BUN 31 mg/dL (8-23) H 08/15/17 06:43 BUN/Creatinine Ratio 33 (6-26) H 08/15/17 06:43 Glucose 117 mg/dL (70-105) H 08/15/17 06:43 Calcium 8.5 mg/dL (8.6-10.3) L 08/15/17 06:43 Phosphorus 1.8 mg/dL (2.7-4.5) L 08/11/17 08:54 B-Natriuretic Peptide 182 pg/mL (Less than 100) H 08/08/17 03:34 Albumin 3.3 g/dL (3.5-5.7) L 08/08/17 03:34 Globulin 4.4 g/dL (2.4-3.5) H 08/08/17 03:34 Albumin/Globulin Ratio 0.8 (1.1-2.2) L 08/08/17 03:34 LDL Cholesterol, Calc 121 mg/dL (0-99) H 08/08/17 03:34 - Microbiology Findings Microbiology Findings: Microbiology, Last 48 Hours 08/11/17 16:56 Sputum Culture - Preliminary Sputum Acinetobacter ursingii Ruchi albicans Pseudomonas aeruginosa - Clinical Findings Intake & Output: Intake & Output 08/14/17 08/15/17 08/15/17 23:59 07:59 15:59 Intake Total 100 / 100 100 / 100 Output Total 200 / 200 Balance 100 / 100 -200 / -200 100 / 100 Weight 66 kg - VTE Documentation of Mechanical Device: Intermittent pneumatic compression device Consult Discharge Plan - Plan Referrals: Margie Estrella DO [Primary Care Provider] - 08/15/17 1:30 pm
--- NOTE | 2017-08-15 19:14 | Internal Med Progress Note ---
Date of Encounter: 08/16/17 Time of Encounter: 11:00 - Assessment and plan (1) Acute and chronic respiratory failure Current Visit: Yes Status: Acute Assessment and plan: Patient with improvement in shortness of breath this morning Will continue treatment for COPD exacerbation as below Continue supplemental oxygen as needed Qualifiers: Respiratory failure complication: hypoxia Qualified Code(s): J96.21 - Acute and chronic respiratory failure with hypoxia (2) COPD exacerbation Current Visit: Yes Status: Acute Assessment and plan: continue bronchodilators. On oral prednisone. (3) Cough with hemoptysis Current Visit: Yes Status: Acute Assessment and plan: With underlying COPD and right upper lobe cavity with possible bleeding into cavity. Improving hemoptysis. Pulmonology recommended bronchoscopy but patient reluctant at this time. Continue to hold anticoagulation. (4) DVT prophylaxis Current Visit: Yes Status: Acute Assessment and plan: on SCDs alone. No medical anticoagulation due to hemoptysis - Subjective Interval history: Patient with improvement in shortness of breath with hypotension this morning - Constitutional Vitals: Temp Pulse Resp BP Pulse Ox 97.9 F 71 16 92/53 91 08/15/17 15:28 08/15/17 15:28 08/15/17 16:35 08/15/17 17:31 08/15/17 16:35 General appearance: Present: cooperative, mild distress, A&O X 3, no acute distress, severe distress, answers questions appropriately - Respiratory Respiratory exam: Present: CTAB. Absent: accessory muscle use, rales, rhonchi, wheezes - Cardiovascular Cardiovascular exam: Present: RRR, +S1, +S2. Absent: diastolic murmur, gallop, rubs, systolic murmur - Skin Skin exam: Present: pallor Internal Medicine: Result - Labs CBC & Chem 7: 08/15/17 06:43 08/15/17 06:43 Labs: Short CBC 08/15/17 Range/Units 06:43 WBC 32.6 H* (4.3-11.1) K/mcL Hgb 9.9 L (12.9-16.9) g/dL Hct 31.0 L (37.5-50.1) % Plt Count 358 (140-400) K/mcL Neutrophils # 23.5 H (1.6-8.9) K/mcL BMP 08/15/17 06:43 Sodium 138 Potassium 3.3 L Chloride 102 Carbon Dioxide 29 BUN 31 H Creatinine 0.93 Glucose 117 H Calcium 8.5 L - ABG Interpretation ABG results: ABG ABG pH 7.48 pH Units (7.32-7.45) H 08/09/17 10:33 ABG pCO2 36 mmHg (35-45) 08/09/17 10:33 ABG pO2 60 mmHg (85-104) L 08/09/17 10:33 ABG O2 Saturation 93 % (95-98) L 08/09/17 10:33 PT/INR, D-dimer PT 18.0 Seconds (9.4-12.1) H 08/08/17 03:34 - VTE Documentation of Mechanical Device: Intermittent pneumatic compression device Consult Discharge Plan - Plan Referrals: Margie Estrelal DO [Primary Care Provider] - 08/15/17 1:30 pm
[2017-08-15] MEDS: 0.9 % Sodium Chloride 1,000 ML IVC SCH (20:11)
[2017-08-16] MEDS: Levalbuterol Neb 1.25 MG/3 ML IH SCH ×4 (03:43→22:16)
[2017-08-16] MEDS: *HR* OxyCODONE/APAP 10/325 TABLET PO PRN ×3 (05:22→20:56)
[2017-08-16] MEDS: 0.9 % Sodium Chloride 1,000 ML IVC SCH ×2 (05:23→13:50)
[2017-08-16] MEDS: *HR* Metoprolol 5 MG/5 ML VIAL IVP PRN (06:28)
--- NOTE | 2017-08-16 06:35 | Event Note ---
Date of Encounter: 08/16/17 Time of Encounter: 06:31 67 M with Hx of A fib c RVR. Notified by nursing that patient was back in a fib with RVR. Patient's Rate was in the 130s. Patient's BP however was 85/62. Patient was currently getting 1L NS at rate of 100. Patietnt missed evenign dose of lopressor 2/2 to low BP. I reviewed patient's chart and saw that patient responded to IV lopressor earlier this admission when in afib with RVR with a similar BP. Told nurse to run IV fluids wide open and to push 5mg IV metoprolol after half the bolus had been received and then to finish the rest of the Liter bolus.
[2017-08-16 08:37] LABS: Hematocrit 27.9 % (37.5-50.1); Hemoglobin 8.6 g/dL (12.9-16.9); Mean Corpuscular HGB Conc 30.8 g/dL (31.6-35.5); Mean Corpuscular Hemoglobin 25.5 pg (28.0-33.3); Mean Corpuscular Volume 82.8 fL (83.0-100.0); Mean Platelet Volume 9.2 fL (9.4-12.4); Nucleated Red Blood Cells 0.1 /100 WBC (0); Platelet Count 319 K/mcL (140-400); Red Blood Count 3.37 M/mcL (4.19-5.50); Red Cell Distribution Width 18.6 % (11.5-14.5)
[2017-08-16] MEDS: predniSONE 20 MG TABLET PO SCH (08:45)
[2017-08-16] MEDS: Aspirin 81 MG TAB.CHEW PO SCH (08:45)
[2017-08-16] MEDS: Verapamil ER (24 HR) 180 MG TABLET.ER PO SCH (08:45)
[2017-08-16] MEDS: hydroCHLOROthiazide 25 MG TABLET PO SCH (08:46)
[2017-08-16] MEDS: Gabapentin 300 MG CAPSULE PO SCH ×3 (08:46→20:53)
[2017-08-16 09:08] LABS: Lymphocytes # 1.4 K/mcL (0.6-4.6); Monocytes # 1.1 K/mcL (0.0-1.3); Neutrophils # 32.1 K/mcL (1.6-8.9)
[2017-08-16 09:09] LABS: Platelet Estimate Normal (Normal); Toxic Granulation Present (Not Present)
[2017-08-16 09:38] LABS: BUN/Creatinine Ratio 32 (6-26); Blood Urea Nitrogen 22 mg/dL (8-23); Calcium 7.5 mg/dL (8.6-10.3); Carbon Dioxide 25 mEq/L (23-29); Chloride 104 mEq/L (98-107); Glucose 98 mg/dL (70-105); Osmolality,Calculated 281 (280-300); Potassium 3.3 mEq/L (3.5-5.1); Sodium 134 mEq/L (136-145); eGFR For Non-African Americans > 60 (> 60)
--- NOTE | 2017-08-16 10:58 | Infectious Disease Consult ---
Date of Encounter: 08/16/17 Time of Encounter: 11:00 Assessment and Plan (1) Sepsis Status: Acute Assessment and plan: Severe sepsis 3 SIRS criteria present: Elevated temperature, leukocytosis, tachycardia Evidence of organ malfunction with acute on chronic respiratory failure Significant abnormalities seen on chest CT suggestive of infection Had received 1 dose azithromycin and 2 doses Rocephin Antibiotic coverage broadened on 08/08 with Levaquin, Zosyn, vancomycin (for 3 total doses) Patient been started on meropenem on 08/15 after results of sputum culture Blood cultures performed on 08/07 were negative for growth Qualifiers: Sepsis type: sepsis due to unspecified organism Qualified Code(s): A41.9 - Sepsis, unspecified organism (2) Pneumonia Status: Acute Assessment and plan: Causative organism Acinetobacter and psuedomonas Would appreciate bronch for further evaluation of material newly present in RUL bulla Patient has history of treatment for histoplasmosis in 2013 Significant groundglass present as well as bullous changes with cavitary lesions that have potentially filled with proteinaceous or hemorrhagic material WBC has trended upwards from 19-35.3 Patient has receiving systemic steroids since prior to admission, possibly contributory Culture obtained on 08/11 shows 3 bacteria: Acinetobacter asingii C. albicans Pseudomonas aeruginosa Had received 1 dose azithromycin and 2 doses Rocephin Antibiotic coverage broadened on 08/08 with Levaquin, Zosyn, vancomycin (for 3 total doses) Patient been started on meropenem on 08/15 following results of sputum culture Following discussion with the patient he would be willing to undergo bronchoscopy if it could be done earlier in the day Patient scheduled for bronchoscopy on 08/18 at 1115 NPO after midnight Will stop Meropenem Start cefepime Wait for sensitivities for acinetobacter Consider swallow eval Qualifiers: Pneumonia type: due to unspecified organism Laterality: right Lung location: unspecified part of lung Qualified Code(s): J18.9 - Pneumonia, unspecified organism (3) Cough with hemoptysis Status: Acute Assessment and plan: Patient reports hemoptysis since 08/08/17 Has been seen by pulmonology and patient previously refused bronchoscopy States improvement in hemoptysis over several days, though has continued Recommend bronchoscopy with pulmonology Plan as above (4) Acute and chronic respiratory failure Status: Acute Assessment and plan: History of COPD stage IV with long-standing smoking as well as reported exposure to agent orange Bullous changes seen on chest CT Acute decompensation respiratory status likely due to acute exacerbation COPD and pneumonia Plan as above and per primary Qualifiers: Respiratory failure complication: hypoxia Qualified Code(s): J96.21 - Acute and chronic respiratory failure with hypoxia (5) Acute exacerbation of chronic obstructive airways disease Status: Suspected Assessment and plan: Continue plan per primary (6) Atrial fibrillation with RVR Status: Chronic Assessment and plan: Patient seen and evaluated by cardiology Eliquis stopped after onset of hemoptysis Currently on metoprolol and verapamil Continue management per primary team and cardiology (7) CAD (coronary artery disease) Status: Chronic Assessment and plan: Patient has history of coronary artery disease RI with CHENG placement in 06/04 Continue Plavix despite hemoptysis due to significant risk of stent occlusion Qualifiers: Coronary Disease-Associated Artery/Lesion type: [place] artery [place] vs. transplanted heart: [place] heart Associated angina: without angina Qualified Code(s): I25.10 - Atherosclerotic heart disease of [place] coronary artery without angina pectoris (8) Abnormal CT scan of lung Status: Acute Assessment and plan: Plan as above Infectious Disease HPI - Data of Consult Patient: known to practice within the last 3 years Consult date: 08/16/17 Requesting Physician: Jamie Vazquez Primary Care Provider: Silvino Riddle - Consult Narrative Reason for consult: Leukocytosis History of present illness: Mr. Bai is a 67yo male w/ PMHx of COPD, A-fib, HTN, RI (with CHENG in 06/04 ) and hld that presented to the [facility] ED on 08/07 for SOB. Infectious disease was consulted on 08/16 for possible antibiotic coverage. He has a significant history of COPD exacerbations and was recently discharged for COPD exacerbation, for which he was given steroids and antibiotics. After being home for several days he reports that he began to feels worse. Patient says that he uses oxygen only at night time at home, but he came into the hospital b/c he was having increased dyspnea and cough. He states he had a worsening productive cough and reports intermittent low grade fevers, cough and wheezing. He also describes his pleuritic chest pain about a 3/10. After presenting to the ER, he was initially diagnosed with another exacerbation of COPD, as well as having atrial fibrillation with RVR. He received breathing treatment, steroids, azithromycin, ceftriaxone, and cardizem drip. A CTA performed at the ER shows no evidence of PE but, mild ground glass opacities in the middle right lobe, severe chronic bronchiectasis and cavitary lesion in b/l upper lobes. On the evening of 08/08 a rapid response was called because he developed A-fib w / RVR. Increase on the metoprolol was needed, but a CXR was obtained that showed a new URL opacification and he was started on Vancomycin, Zosyn, and levaquin. On 08/09 the patient developed worsened hemoptysis and pulmonology was consulted. He stated that the hemoptysis was there 2 days ago, but now its much worse. Patients blood thinners were put on hold, but clopidogrel is still continued for his coronary stent. CT scan on 08/09 showed new hyperdense material w/in large bullae in R upper lobe, new centriolobular nodule w/in R lower lobe. A bronchoscopy was recommended by pulmonology, but the patient needed to think about it. Over the next couple of days his hemoptysis improved and a bronchoscopy was not performed. On 08/14 the patient declined a bronchoscopy. Preliminary sputum culture on 08/11 revealed the growth of Acintetobacter ursingii, Ruchi albicans, and Pseudomonas aeruginosa. During my encounter today, the patient was sitting in his chair eating breakfast. He states that he is continuing to have hemoptysis that has been relatively stable since the day before. He reports having continued fatigue and weakness that started when he came into the hospital. He denies having had any fevers or chills, reports continued shortness of breath, denies any pain in his chest, but right flank pain with coughing. He states that he has been a smoker for 50 years, but had quit 9 days prior. He states that he had exposure to [place] during [place]. He lives at home with his currently and they have 6 pets (dogs and cats). Their adult son is with them for a couple months, but he has not traveled at all recently. His does report that she has been dealing with a cold for several weeks. I asked him about having issues with swallowing and choking on his food and he reports that to him it feels like he is having some problems with swallowing, but he reports having a fluorscopic swallow eval preformed at the [facility] several months-year ago showed no problems. The patient stated that he has no objection for doing the bronchoscopy, however, he does not want to be fasting for significant time prior and would like to have it done early in the morning (if possible). Patient denies SCHERER, fevers, chills or nightsweats. Patient denies chest pain, palpitations, syncope. Patient admits to SOB, wheezing and a productive cough. Patient states that when he coughs he gets pain in his lower back on the right side. Patient denies burning sensation, hematuria or dysuria, but does admit to urge incontinence. CC: Jamie Vazquez Past Med Surg Social Fam HX - Past Medical History Medical history: atrial fibrillation, COPD, fibromyalgia, GERD, hyperlipidemia, hypertension, myocardial infarction Psychiatric history: anxiety, depression - Past Surgical History Surgical History: appendectomy, other - Social History Smoking Status: Current every day smoker Smokeless Tobacco Status: Yes Alcohol use: none Drug use: none - Family History Sister Family Member Ethnicity: Non- Living Status: Still Living Hx Family Cardiac Disorders: Yes (HD) Hx Family Respiratory Disorders: No Hx Family Cancer: Yes (Breast) Hx Family GI Disorders: No Hx Family Endocrine Disorder: No Hx Family Neuromuscular Disorders: No Hx Family Neurologic Disorders: No Hx Family HEENT Disorders: No Hx Family Autoimmune Disorders: No Brother Family Member Ethnicity: Non- Living Status: Still Living Mother Family Member Ethnicity: Non- Living Status: Father Family Member Ethnicity: Non- Living Status: Hx Family Cardiac Disorders: No Hx Family Respiratory Disorders: No Hx Family Cancer: Yes Hx Family Endocrine Disorder: No Infectious Disease-CN:Meds Albuterol Neb [Proventil Neb] 2.5 mg IH TID 02/19/17 [History] Albuterol Sulfate [Albuterol Inhaler] 2 puff IH Q6H PRN 02/19/17 [History] Alendronate Sodium [Fosamax] 70 mg PO WE 02/19/17 [History] Atorvastatin [Lipitor] 40 mg PO HS 02/19/17 [History] Budesonide/Formoterol 160/4.5 [Symbicort 160/4.5] 2 puff IH BIDR 02/19/17 [ History] Cetirizine HCl [All Day Allergy] 10 mg PO DAILY 02/19/17 [History] Gabapentin [Neurontin] 900 mg PO TID 02/19/17 [History] Omeprazole [PriLOSEC] 20 mg PO DAILY 02/19/17 [History] Oxycodone HCl/Acetaminophen [Percocet 10-325 mg Tablet] 1 tab PO 5XD PRN [History] Theophylline Anhydrous [Oliver-24] 200 mg PO DAILY 02/19/17 [History] Verapamil HCl [Verapamil ER] 180 mg PO DAILY 02/19/17 [History] Apixaban [Eliquis] 5 mg PO BID #60 tablet 03/18/17 [Rx] Sertraline [Zoloft] 150 mg PO DAILY 06/06/17 [History] Clopidogrel [Plavix] 75 mg PO DAILY #30 tablet 06/10/17 [Rx] hydroCHLOROthiazide [Hydrochlorothiazide] 12.5 mg PO DAILY 07/12/17 [History] Metoprolol [Lopressor] 25 mg PO BID 08/07/17 [History] Multivitamin [One Daily Multivitamin] 1 each PO DAILY 08/07/17 [History] Potassium Chloride [K-Tab ER] 10 meq PO DAILY 08/07/17 [History] predniSONE [PredniSONE] 10 mg PO DAILY 08/07/17 [History] 3 Allergy/AdvReac Type Severity Reaction Status Date / Time tiotropium Allergy Rash Verified 08/07/17 15:42 [From Spiriva with HandiHaler] bee stings Allergy Anaphylaxis Uncoded 08/07/17 15:42 Review of systems: Gen: Denies fever, denies chills, reports weakness, reports fatigue CV: Denies chest pain, denies palpitations Resp: Reports shortness of breath, reports pleuritic pain as per history of present illness, reports coughing, reports hemoptysis, denies changes in phlegm production, denies wheeze GI: Denies nausea, denies vomiting, denies abdominal pain, denies constipation, denies diarrhea, denies hematochezia, denies melena MSK: Reports mild tenderness in the, denies muscle weakness Neuro: Denies headache, denies confusion, denies focal weakness, denies numbness , denies tingling, denies vision changes : Denies flank pain, denies dysuria, denies hematuria Exam - Constitutional Vitals: Temp Pulse Resp BP Pulse Ox 98.8 F 89 16 95/40 92 08/16/17 08:02 08/16/17 08:02 08/16/17 08:02 08/16/17 08:02 08/16/17 08:02 - Additional findings Additional findings: General: Cooperative, pleasant, no acute distress, alert and oriented 3, answers questions appropriately, nasal cannula in place HEENT: Normocephalic, atraumatic, neck supple, trachea midline, Conjunctiva pink , sclera anicteric, oral mucosa moist, no orophargeal erythema or exudates Respiratory: No accessory muscle usage, diffuse rhonchi, wheezing throughout, bibasilar Rales present Cardiovascular: Regular rate and rhythm, S1 and S2 present, no murmurs/rubs/ gallops/clicks appreciated GI/abdominal: Nondistended, nontender, soft, normal bowel sounds, no peritoneal signs Extremities: No calf tenderness, noncyanotic, no pedal edema appreciated, warm, lower extremity pulses palpable and symmetrical Neurological: Alert and oriented 3, no facial droop, no focal deficits Skin: Dry, intact, normal color Infectious Disease CN: Results - Labs CBC & Chem 7: 08/16/17 08:11 08/16/17 08:11 Cultures: Cultures 08/11/17 16:56 Sputum Culture - Preliminary Sputum Acinetobacter ursingii Ruchi albicans Pseudomonas aeruginosa Serology: Serology 08/08/17 Range/Units 14:36 Chlamy pneumoniae PCR Not Detected (Not Detect) Adenovirus (PCR) Not Detected (Not Detect) B. pertussis DNA (PCR) Not Detected (Not Detect) B.parapertussis DNA PCR Not Detected (Not Detect) Coronavirus OC43 (PCR) Not Detected (Not Detect) Coronavirus HKU1 (PCR) Not Detected (Not Detect) Coronavirus 229E (PCR) Not Detected (Not Detect) Coronavirus NL63 (PCR) Not Detected (Not Detect) Human Metapneumovir PCR Not Detected (Not Detect) Influenza A (H1) PCR Not Detected (Not Detect) Influ A (H1N1/09) PCR Not Detected (Not Detect) Influenza A (H3) PCR Not Detected (Not Detect) Influenza A Untype (PCR) Not Detected (Not Detect) Influenza Type B (PCR) Not Detected (Not Detect) M.pneumoniae DNA (PCR) Not Detected (Not Detect) Parainfluenza 1 (PCR) Not Detected (Not Detect) Parainfluenza 2 (PCR) Not Detected (Not Detect) Parainfluenza 3 (PCR) Not Detected (Not Detect) Parainfluenza 4 (PCR) Not Detected (Not Detect) RSV (PCR) Not Detected (Not Detect) Entero/Rhino (PCR) Not Detected (Not Detect) - VTE Documentation of Mechanical Device: Intermittent pneumatic compression device Consult Discharge Plan - Plan Referrals: Margie Estrella DO [Primary Care Provider] - - Attending Attestation I examined this patient and my medical decision-making was reviewed with the Resident Physician. I agree with the documented findings, disposition and treatment plan as described except to the extent set forth below. This is an addendum to original report dictated by resident physician. Please refer to Dr. Jennings note for full detail. Patient is 67-year-old gentleman who I have seen previously back in 2003 2004 and treated for positive pulmonary histoplasmosis per serology. Patient has been doing well until recently when he was admitted to [place] with COPD exacerbation. Patient was treated with high-dose steroids and levofloxacin and discharged home to finish a seven-day course. Patient stated he felt better little bit and then he came back on August 07 with shortness of breath cough sputum production. Since admission patient was noted to be in A. fib with RVR. CT of the chest reveals large bullae bilaterally and the one on the right chest has white material noted. Not sure if that was a hematoma blood proteins or infection. I did review the CT scan with Dr. desai. Patient was started on broad-spectrum antibiotics we were consulted to evaluate the patient and make further recommendations. Clinically the patient seems comfortable he states he feels better since his been here. He does look like she has lost some weight and he looks like he has some cachexia compared to lying you have before. At this point patient is on broad-spectrum antibiotics, I will DC the meropenem and start cefepime. His cultures were positive for Pseudomonas, Acinetobacter is and Ruchi species. Await the Acinetobacter to finalize and we might have to readjust antibiotics. Patient has been placed on contact and droplet precautions. There is no evidence of this patient has any multidrug resistant bacteria at this point but we will wait for the cultures to finalize. Patient agreed with us to have a bronchoscopy. This has been scheduled for Monday at 11:15. Please send the a L4 cytology, Gram stain, cultures, AFB smear, AFB, GMS stain and fungal culture. Monitor labs and for prophylaxis toxicity. If BAL is not revealing, consider repeating fungal serologies.
[2017-08-16] MEDS ORDERED: Capsaicin 0.025% 60 GM TUBE TP PRN (11:34)
[2017-08-16] MEDS: Budesonide/Formoterol 160/4.5 1 PUFF INH IH SCH ×2 (11:50→22:17)
[2017-08-16] MEDS ORDERED: Cefepime HCl 1,000 MG in D5% in Water (Mini-Bag+) 100 ML IVPB SCH (16:00)
[2017-08-16] MEDS: Cefepime HCl 2,000 MG in Water for inj. (sterile) 20 ML 20 ML IVP SCH (17:00)
--- NOTE | 2017-08-16 19:17 | Internal Med Progress Note ---
Date of Encounter: 08/17/17 Time of Encounter: 11:00 - Assessment and plan (1) Acute and chronic respiratory failure Current Visit: Yes Status: Acute Assessment and plan: Patient with continued shortness of breath this morning Will continue treatment for COPD exacerbation as below Continue supplemental oxygen as needed (2) COPD exacerbation Current Visit: Yes Status: Acute Assessment and plan: continue bronchodilators. On oral prednisone. (3) Cough with hemoptysis Current Visit: Yes Status: Acute Assessment and plan: Patient with continued hemoptysis this morning and has now decided to proceed with recommendations for bronchoscopy Pulmonology following with scheduled thoracoscopy on 08/18/17 Continue to hold anticoagulation. (4) DVT prophylaxis Current Visit: Yes Status: Acute Assessment and plan: on SCDs alone. No medical anticoagulation due to hemoptysis - Subjective Interval history: Patient with improvement in shortness of breath with hypotension this morning Patient also with continued hemoptysis and has decided not to go through with recommended bronchoscopy - Constitutional Vitals: Temp Pulse Resp BP Pulse Ox 98.5 F 84 22 89/49 88 08/16/17 15:00 08/16/17 15:00 08/16/17 15:38 08/16/17 15:00 08/16/17 15:38 General appearance: Present: cooperative, mild distress, A&O X 3, no acute distress, severe distress, answers questions appropriately - Respiratory Respiratory exam: Present: CTAB. Absent: accessory muscle use, rales, rhonchi, wheezes - Cardiovascular Cardiovascular exam: Present: RRR, +S1, +S2. Absent: diastolic murmur, gallop, rubs, systolic murmur Internal Medicine: Result - Labs CBC & Chem 7: 08/16/17 08:11 08/16/17 08:11 Labs: Short CBC 08/16/17 Range/Units 08:11 WBC 35.3 H* (4.3-11.1) K/mcL Hgb 8.6 L (12.9-16.9) g/dL Hct 27.9 L (37.5-50.1) % Plt Count 319 (140-400) K/mcL Neutrophils # 32.1 H (1.6-8.9) K/mcL BMP 08/16/17 08:11 Sodium 134 L Potassium 3.3 L Chloride 104 Carbon Dioxide 25 BUN 22 Creatinine 0.68 L Glucose 98 Calcium 7.5 L - ABG Interpretation ABG results: ABG ABG pH 7.48 pH Units (7.32-7.45) H 08/09/17 10:33 ABG pCO2 36 mmHg (35-45) 08/09/17 10:33 ABG pO2 60 mmHg (85-104) L 08/09/17 10:33 ABG O2 Saturation 93 % (95-98) L 08/09/17 10:33 PT/INR, D-dimer PT 18.0 Seconds (9.4-12.1) H 08/08/17 03:34 - VTE Documentation of Mechanical Device: Intermittent pneumatic compression device Consult Discharge Plan - Plan Referrals: Margie Estrella DO [Primary Care Provider] -
[2017-08-17] MEDS: Cefepime HCl 2,000 MG in Water for inj. (sterile) 20 ML 20 ML IVP SCH ×4 (01:03→23:32)
[2017-08-17] MEDS: 0.9 % Sodium Chloride 1,000 ML IVC SCH ×2 (01:04→12:09)
[2017-08-17] MEDS: GuaiFENesin/Dextromethorphan TABLET PO SCH ×3 (02:21→21:05)
[2017-08-17] MEDS: Levalbuterol Neb 1.25 MG/3 ML IH SCH ×2 (03:42→10:19)
--- NOTE | 2017-08-17 07:39 | Infectious Disease Progress No ---
Date of Encounter: 08/17/17 Time of Encounter: 07:15 - Assessment and Plan (1) Sepsis Current Visit: Yes Status: Acute Severe sepsis 3 SIRS criteria present: Elevated temperature, leukocytosis, tachycardia Evidence of organ malfunction with acute on chronic respiratory failure Significant abnormalities seen on chest CT suggestive of infection Had received 1 dose azithromycin and 2 doses Rocephin Antibiotic coverage broadened on 08/08 with Levaquin, Zosyn, vancomycin (for 3 total doses) Patient been started on meropenem on 08/15 after results of sputum culture Meropenem stopped on 08/16 and patient started on cefepime Blood cultures performed on 08/07 were negative for growth Repeat blood cultures ordered the morning of 08/17 as patient has continued sepsis Qualifiers: Qualified Code(s): A41.9 - Sepsis, unspecified organism (2) Pneumonia Current Visit: Yes Status: Acute Causative organism Acinetobacter and psuedomonas Patient has history of treatment for histoplasmosis in 2003 Significant groundglass present as well as bullous changes with cavitary lesions that have potentially filled with proteinaceous or hemorrhagic material WBC has trended upwards from 19 -> 35.3 Patient has receiving systemic steroids since prior to admission, possibly contributory Culture obtained on 08/11 shows 2 bacteria and 1 fungus: Acinetobacter asingii C. albicans Pseudomonas aeruginosa Had received 1 dose azithromycin and 2 doses Rocephin Antibiotic coverage broadened on 08/08 with Levaquin, Zosyn, vancomycin (for 3 total doses) Patient been started on meropenem on 08/15 following results of sputum culture Meropenem stopped on 08/16 Following discussion with the patient he would be willing to undergo bronchoscopy if it could be done earlier in the day Patient showing significant work in breathing to maintain oxygen saturation in the 80s There is significant concern of deterioration in his respiratory status Patient scheduled for bronchoscopy on 08/18 at 1115 NPO after midnight Continue cefepime Wait for sensitivities for acinetobacter Consider use of venti mask, NRB, or bipap if needed Qualifiers: Qualified Code(s): J18.9 - Pneumonia, unspecified organism (3) Cough with hemoptysis Current Visit: Yes Status: Acute Patient reports hemoptysis since 08/08/17 Has been seen by pulmonology and patient had previously refused bronchoscopy, but is wanting to undergo bronchoscopy for discussion on 08/16 States improvement in hemoptysis over several days, though has continued Bronchoscopy scheduled with Dr. Dasilva Monday 11:15 NPO at midnight Plan as above (4) Acute and chronic respiratory failure Current Visit: Yes Status: Acute History of COPD stage IV with long-standing smoking as well as reported exposure to agent orange Previously treated for histoplasmosis in 2003 Bullous changes seen on chest CT Acute decompensation respiratory status likely due to acute exacerbation COPD and pneumonia Plan as above and per primary Qualifiers: Qualified Code(s): J96.21 - Acute and chronic respiratory failure with hypoxia (5) Acute exacerbation of chronic obstructive airways disease Current Visit: No Status: Suspected Continue plan per primary (6) Atrial fibrillation with RVR Current Visit: Yes Status: Chronic Patient seen and evaluated by cardiology Eliquis stopped after onset of hemoptysis Currently on metoprolol and verapamil Continue management per primary team and cardiology (7) CAD (coronary artery disease) Current Visit: Yes Status: Chronic Patient has history of coronary artery disease [place] with CHENG placement in 06/04 Continue Plavix despite hemoptysis due to significant risk of stent occlusion Qualifiers: Qualified Code(s): I25.10 - Atherosclerotic heart disease of [place] coronary artery without angina pectoris (8) Abnormal CT scan of lung Current Visit: Yes Status: Acute Plan as above (9) Generalized weakness Current Visit: Yes Status: Acute Patient reports generalized weakness He feels it is getting worse Likely improve with treatment of his pneumonia Recommend PT/OT - Subjective Interval history: Patient awake but appears uncomfortable this morning. He is able to converse with mild conversational dyspnea. He reports that he has had continued cough with hemoptysis throughout the entire evening. He also has been somewhat short of breath. He feels that he has been breathing better after his supplemental oxygen was humidified. He denies having any fevers, chills, nausea, or abdominal pain. He does report generalized weakness. Speaking with his nurse today, he has a hard time breathing through his nose maintain a better oxygen saturation with oxygen mask in place using the patient found it less comfortable. Patient remains septic. Leukocytosis present by yesterday's labs, patient has had episodes of tachycardia, especially when he short of breath. Patient has been tachypneic and has had mild fever. Infect Dis PN-Objective Data - Labs CBC & Chem 7: 08/17/17 11:13 08/17/17 11:13 Labs: Laboratory Results - last 24 hr 08/16/17 08/16/17 08:11 08:11 WBC 35.3 H* RBC 3.37 L Hgb 8.6 L Hct 27.9 L MCV 82.8 L MCH 25.5 L MCHC 30.8 L RDW 18.6 H Plt Count 319 MPV 9.2 L Seg Neutrophils % 79.0 Band Neutrophils % 12.0 H Lymphocytes % 4.0 Monocytes % 3.0 Metamyelocytes % 2.0 H Neutrophils # 32.1 H Lymphocytes # 1.4 Monocytes # 1.1 Nucleated RBCs/100 WBC 0.1 H Toxic Granulation Present A Platelet Estimate Normal Sodium 134 L Potassium 3.3 L Chloride 104 Carbon Dioxide 25 BUN 22 Creatinine 0.68 L Est GFR ( Amer) > 60 Est GFR (Non-Af Amer) > 60 BUN/Creatinine Ratio 32 H Glucose 98 Calculated Osmolality 281 Calcium 7.5 L Cultures: Cultures 08/11/17 16:56 Sputum Culture - Preliminary Sputum Acinetobacter ursingii Ruchi albicans Pseudomonas aeruginosa Serology 08/08/17 Range/Units 14:36 Chlamy pneumoniae PCR Not Detected (Not Detect) Adenovirus (PCR) Not Detected (Not Detect) B. pertussis DNA (PCR) Not Detected (Not Detect) B.parapertussis DNA PCR Not Detected (Not Detect) Coronavirus OC43 (PCR) Not Detected (Not Detect) Coronavirus HKU1 (PCR) Not Detected (Not Detect) Coronavirus 229E (PCR) Not Detected (Not Detect) Coronavirus NL63 (PCR) Not Detected (Not Detect) Human Metapneumovir PCR Not Detected (Not Detect) Influenza A (H1) PCR Not Detected (Not Detect) Influ A (H1N1/09) PCR Not Detected (Not Detect) Influenza A (H3) PCR Not Detected (Not Detect) Influenza A Untype (PCR) Not Detected (Not Detect) Influenza Type B (PCR) Not Detected (Not Detect) M.pneumoniae DNA (PCR) Not Detected (Not Detect) Parainfluenza 1 (PCR) Not Detected (Not Detect) Parainfluenza 2 (PCR) Not Detected (Not Detect) Parainfluenza 3 (PCR) Not Detected (Not Detect) Parainfluenza 4 (PCR) Not Detected (Not Detect) RSV (PCR) Not Detected (Not Detect) Entero/Rhino (PCR) Not Detected (Not Detect) Exam - Constitutional Vitals: Temp Pulse Resp BP Pulse Ox 99.9 F H 116 23 125/63 90 08/17/17 06:51 08/17/17 06:51 08/17/17 06:51 08/17/17 06:51 08/17/17 06:51 - Additional findings Additional findings: General: Cooperative, pleasant, in moderate distress, alert and oriented 3, answers questions appropriately, nasal cannula in place HEENT: Normocephalic, atraumatic, neck supple, trachea midline, Conjunctiva pink , sclera anicteric Respiratory: Patient using accessory muscles of respiration, diffuse rhonchi, wheezing throughout, bibasilar Rales present Cardiovascular: Tachycardia, S1 and S2 present, no murmurs/rubs/gallops/clicks appreciated GI/abdominal: Nondistended, nontender, soft, normal bowel sounds, no peritoneal signs Extremities: No calf tenderness, noncyanotic, no pedal edema appreciated, warm, lower extremity pulses palpable and symmetrical Neurological: Alert and oriented 3, no facial droop, no focal deficits Skin: Dry, intact, normal color - VTE Documentation of Mechanical Device: Intermittent pneumatic compression device Consult Discharge Plan - Plan Referrals: Margie Estrella DO [Primary Care Provider] - - Attending Attestation I examined this patient and my medical decision-making was reviewed with the Resident Physician. I agree with the documented findings, disposition and treatment plan as described except to the extent set forth below. Patient doing much worse clinically. Requiring higher O2. Continues to have significant hemoptysis. Patient is DNR/DNI some not sure he will be a candidate for bronchoscopy right now because he is decompensating. Spoke with nursing staff acid notify the family of the patient's condition With respiratory therapy and increased O2 demand requiring either BiPAP or may be a nonrebreather mask I spoke also the hospitalist team will increase his antibiotics even though I am not sure we are treating but the patient is clinically deteriorating fast. DC cefepime start vancomycin and Zosyn. Prognosis very poor
[2017-08-17] MEDS: Aspirin 81 MG TAB.CHEW PO SCH (08:49)
[2017-08-17] MEDS: Gabapentin 300 MG CAPSULE PO SCH ×3 (08:50→21:05)
[2017-08-17] MEDS: predniSONE 20 MG TABLET PO SCH (08:50)
[2017-08-17] MEDS: hydroCHLOROthiazide 25 MG TABLET PO SCH (08:50)
[2017-08-17] MEDS: Verapamil ER (24 HR) 180 MG TABLET.ER PO SCH (09:02)
[2017-08-17] MEDS: *HR* OxyCODONE/APAP 10/325 TABLET PO PRN ×2 (09:02→23:43)
[2017-08-17] MEDS: Budesonide/Formoterol 160/4.5 1 PUFF INH IH SCH ×2 (10:19→20:30)
[2017-08-17 11:25] LABS: Nucleated Red Blood Cells 0.1 /100 WBC (0)
[2017-08-17 11:27] LABS: Hemoglobin 8.7 g/dL (12.9-16.9); Mean Corpuscular HGB Conc 31.1 g/dL (31.6-35.5); Mean Corpuscular Volume 83.6 fL (83.0-100.0); Mean Platelet Volume 9.5 fL (9.4-12.4); Platelet Count 311 K/mcL (140-400); Red Blood Count 3.35 M/mcL (4.19-5.50)
[2017-08-17 11:42] LABS: BUN/Creatinine Ratio 31 (6-26); Blood Urea Nitrogen 19 mg/dL (8-23); Calcium 7.1 mg/dL (8.6-10.3); Carbon Dioxide 23 mEq/L (23-29); Chloride 109 mEq/L (98-107); Glucose 104 mg/dL (70-105); Osmolality,Calculated 285 (280-300); Potassium 3.4 mEq/L (3.5-5.1); Sodium 136 mEq/L (136-145); eGFR For Non-African Americans > 60 (> 60)
[2017-08-17] MEDS: Ipratropium/Albuterol Neb 3 ML IH SCH ×4 (12:05→23:55)
[2017-08-17 12:30] LABS: ABG Base Excess 1 mEq/L (-2 to 3); ABG HCO3 26 mEq/L (21-27); ABG Oxygen Saturation 85 % (95-98); ABG PCO2 42 mmHg (35-45); ABG PO2 50 mmHg (85-104); ABG TCO2 27 mEq/L (20-26)
--- NOTE | 2017-08-17 16:07 | Internal Med Progress Note ---
Date of Encounter: 08/17/17 Time of Encounter: 11:00 - Assessment and plan (1) Sepsis Current Visit: Yes Status: Acute Assessment and plan: Secondary to pneumonia; cultures positive for Acinetobacter and psuedomonas Patient with worsening respiratory failure and increased leukocytosis Patient will be transferred to a higher acuity floor Infectious disease following and appreciate recommendations Qualifiers: Sepsis type: sepsis due to unspecified organism Qualified Code(s): A41.9 - Sepsis, unspecified organism (2) Pneumonia Current Visit: Yes Status: Acute Assessment and plan: Cultures as above; ID following for recommendations of antibiotics Qualifiers: Pneumonia type: due to unspecified organism Laterality: right Lung location: unspecified part of lung Qualified Code(s): J18.9 - Pneumonia, unspecified organism (3) Acute and chronic respiratory failure Current Visit: Yes Status: Acute Assessment and plan: Patient worsening shortness of breath today and will be placed on BiPAP Patient also will continue hemoptysis Pulmonology following with recommendations for bronchoscopy on 08/18/17 Qualifiers: Respiratory failure complication: hypoxia Qualified Code(s): J96.21 - Acute and chronic respiratory failure with hypoxia (4) COPD exacerbation Current Visit: Yes Status: Acute Assessment and plan: Secondary to the above;continue bronchodilators. On oral prednisone. (5) Cough with hemoptysis Current Visit: Yes Status: Acute (6) Atrial fibrillation with RVR Current Visit: Yes Status: Chronic Assessment and plan: Rate controlled on calcium channel lily and beta lily Eliquis discontinued due to hemoptysis (7) DVT prophylaxis Current Visit: Yes Status: Acute Assessment and plan: on SCDs alone. No medical anticoagulation due to hemoptysis - Subjective Interval history: Patient with increased work of breathing and shortness of breath this morning and continued hypoxia on high flow oxygen. Patient also with continued hemoptysis and has decided not to go through with recommended bronchoscopy - Constitutional Vitals: Temp Pulse Resp BP Pulse Ox 97.3 F L 71 28 95/59 90 08/17/17 10:42 08/17/17 10:42 08/17/17 15:45 08/17/17 10:42 08/17/17 15:45 General appearance: Present: cooperative, mild distress, A&O X 3, no acute distress, severe distress, answers questions appropriately - Respiratory Respiratory exam: Present: respiratory distress, wheezes Internal Medicine: Result - Labs CBC & Chem 7: 08/17/17 11:13 08/17/17 11:13 Labs: Short CBC 08/17/17 Range/Units 11:13 WBC 40.2 H* (4.3-11.1) K/mcL Hgb 8.7 L (12.9-16.9) g/dL Hct 28.0 L (37.5-50.1) % Plt Count 311 (140-400) K/mcL BMP 08/17/17 11:13 Sodium 136 Potassium 3.4 L Chloride 109 H Carbon Dioxide 23 BUN 19 Creatinine 0.62 L Glucose 104 Calcium 7.1 L - ABG Interpretation ABG results: ABG ABG pH 7.40 pH Units (7.32-7.45) 08/17/17 12:17 ABG pCO2 42 mmHg (35-45) 08/17/17 12:17 ABG pO2 50 mmHg (85-104) L* 08/17/17 12:17 ABG O2 Saturation 85 % (95-98) L 08/17/17 12:17 PT/INR, D-dimer PT 18.0 Seconds (9.4-12.1) H 08/08/17 03:34 - VTE Documentation of Mechanical Device: Intermittent pneumatic compression device Consult Discharge Plan - Plan Referrals: Margie Estrella DO [Primary Care Provider] -
--- NOTE | 2017-08-17 16:53 | Pulmonology Progress Note ---
Date of Encounter: 08/17/17 Time of Encounter: 16:30 Assessment and Plan (1) Cough with hemoptysis Current Visit: Yes Status: Acute Patient hemoptysis has slowed down now and and offered bronchoscopy, patient declined and he will think about it. Discussed with the nurse to resume diet and keep him nothing by mouth postmidnight in case he will need bronchoscopy tomorrow. Overall prognosis is poor and to continue current treatment. 08/15 Today patient is feeling better and his hemoptysis has improved. Discussed with primary team regarding case culture and to change his antibiotics. Patient does not want bronchoscopy and he does not want to be nothing by mouth we will clinically monitor him please call for any questions. I also recommended infectious disease for recommendations regarding antibiotics. 08/17 patient continued to have hemoptysis and to have explained to him about bronchoscopy and he agreed. Patient tentatively is scheduled to have procedure tomorrow and have advised him not to eat or drink anything after midnight. Patient understand his condition could deteriorate with bronchoscopy. (2) Acute exacerbation of chronic obstructive airways disease Current Visit: No Status: Suspected Continue bronchodilators with systemic steroid as well as antibiotics Subjective Principal diagnosis: COPD exacerbation with bleeding into bullous cavity Interval history: Patient continued to have hemoptysis Objective PUL Vital signs: Last Vital Signs Temp 97.3 F L 08/17/17 16:16 Pulse 80 08/17/17 16:16 Resp 21 08/17/17 16:16 BP 91/53 08/17/17 16:16 Pulse Ox 89 08/17/17 16:16 General appearance: appears uncomfortable Eyes: nonicteric Neck: supple Effort: mildly labored Auscultation: bilateral: diminished breath sounds, rhonchi Percussion: bilateral: not dull Cardiovascular: regular rate and rhythm Gastrointestinal: normoactive bowel sounds, non-distended Extremities: no cyanosis normal mental status, non-focal exam mood appropriate Results - Laboratory Findings CBC and BMP: 08/17/17 11:13 08/17/17 11:13 ABG ABG pH 7.40 pH Units (7.32-7.45) 08/17/17 12:17 ABG pCO2 42 mmHg (35-45) 08/17/17 12:17 ABG pO2 50 mmHg (85-104) L* 08/17/17 12:17 ABG O2 Saturation 85 % (95-98) L 08/17/17 12:17 PT/INR, D-dimer PT 18.0 Seconds (9.4-12.1) H 08/08/17 03:34 Abnormal lab findings: Abnormal lab results WBC 40.2 K/mcL (4.3-11.1) H* 08/17/17 11:13 RBC 3.35 M/mcL (4.19-5.50) L 08/17/17 11:13 Hgb 8.7 g/dL (12.9-16.9) L 08/17/17 11:13 Hct 28.0 % (37.5-50.1) L 08/17/17 11:13 MCH 26.0 pg (28.0-33.3) L 08/17/17 11:13 MCHC 31.1 g/dL (31.6-35.5) L 08/17/17 11:13 RDW 19.0 % (11.5-14.5) H 08/17/17 11:13 Immature Gran % 5.1 % (0-4) H 08/14/17 07:17 Band Neutrophils % 12.0 % (0-4) H 08/16/17 08:11 Metamyelocytes % 2.0 % (0) H 08/16/17 08:11 Neutrophils # 32.1 K/mcL (1.6-8.9) H 08/16/17 08:11 Eosinophils # 2.0 K/mcL (0.0-0.6) H 08/15/17 06:43 Nucleated RBCs/100 WBC 0.1 /100 WBC (0) H 08/17/17 11:13 Smudge Cells Present (Not Present) A 08/15/17 06:43 Toxic Granulation Present (Not Present) A 08/16/17 08:11 Large Platelets Present (Not Present) A 08/09/17 22:28 Anisocytosis 1+ (Not Present) A 08/14/17 07:17 PT 18.0 Seconds (9.4-12.1) H 08/08/17 03:34 ABG pO2 50 mmHg (85-104) L* 08/17/17 12:17 ABG Total CO2 27 mEq/L (20-26) H 08/17/17 12:17 ABG O2 Saturation 85 % (95-98) L 08/17/17 12:17 Potassium 3.4 mEq/L (3.5-5.1) L 08/17/17 11:13 Chloride 109 mEq/L (98-107) H 08/17/17 11:13 Creatinine 0.62 mg/dL (0.70-1.30) L 08/17/17 11:13 BUN/Creatinine Ratio 31 (6-26) H 08/17/17 11:13 Calcium 7.1 mg/dL (8.6-10.3) L 08/17/17 11:13 Phosphorus 1.8 mg/dL (2.7-4.5) L 08/11/17 08:54 B-Natriuretic Peptide 182 pg/mL (Less than 100) H 08/08/17 03:34 Albumin 3.3 g/dL (3.5-5.7) L 08/08/17 03:34 Globulin 4.4 g/dL (2.4-3.5) H 08/08/17 03:34 Albumin/Globulin Ratio 0.8 (1.1-2.2) L 08/08/17 03:34 LDL Cholesterol, Calc 121 mg/dL (0-99) H 08/08/17 03:34 - Microbiology Findings Microbiology Findings: Microbiology, Last 48 Hours 08/11/17 16:56 Sputum Culture - Preliminary Sputum Acinetobacter ursingii Ruchi albicans Pseudomonas aeruginosa - Clinical Findings Intake & Output: Intake & Output 08/17/17 08/17/17 08/17/17 07:59 15:59 23:59 Intake Total 510 / 510 140 / 140 240 / 240 Output Total 750 / 750 250 / 250 150 / 150 Balance -240 / -240 -110 / -110 90 / 90 - VTE Documentation of Mechanical Device: Intermittent pneumatic compression device Consult Discharge Plan - Plan Referrals: Margie Estrella, [Primary Care Provider] -
[2017-08-17 18:07] LABS: Monocytes # 1.6 K/mcL (0.0-1.3); Neutrophils # 33.8 K/mcL (1.6-8.9)
[2017-08-17 18:14] LABS: Platelet Estimate Normal (Normal)
[2017-08-17 18:15] LABS: Anisocytosis 1+ (Not Present); Hypochromasia Present (Not Present); Toxic Granulation Present (Not Present)
[2017-08-17] MEDS: clonazePAM 0.5 MG TABLET PO PRN (21:12)
[2017-08-18] MEDS: Ipratropium/Albuterol Neb 3 ML IH SCH ×6 (03:31→23:50)
--- NOTE | 2017-08-18 07:17 | Electrocardiograph Report ---
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
--- NOTE | 2017-08-18 07:17 | Electrocardiograph Report ---
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
--- NOTE | 2017-08-18 07:22 | Electrocardiograph Report ---
[place] [address] Test Date: 2017-08-14 Pat Name: Emmanuel Bai Department: 112 Room: 2N03 Gender: M Pet Sitting: : 1950 Requested By: Vinay Contreras Order Number: [id number] Reading MD: Titi Dumont DO Measurements Intervals [place] Rate: 143 P: FL: 0 QRS: 87 QRSD: 159 T: 0 QT: 202 QTc: 285 Interpretive Statements ATRIAL FLUTTER/TACHYCARDIA WITH RAPID VENTRICULAR RESPONSE INTRAVENTRICULAR CONDUCTION DELAY LEFT VENTRICULAR HYPERTROPHY ST-T CHANGES DUE TO HYPERTROPHY AND/OR ISCHEMIA Electronically Signed On 08-18-2017 7:21:08 EST by Titi Dumont DO
[2017-08-18] MEDS: Budesonide/Formoterol 160/4.5 1 PUFF INH IH SCH ×2 (07:39→20:13)
[2017-08-18] MEDS ORDERED: *HR* EPINEPHrine 1 MG/10 ML SYRINGE INTRATRACH PRN (08:25)
[2017-08-18] MEDS ORDERED: *HR* FentaNYL (PF) 100 MCG/2 ML VIAL IVP ONE (08:25)
[2017-08-18] MEDS ORDERED: Tetracaine/Benzocaine/Butamben 1 SPRAY AEROSOL MM ONE (08:25)
[2017-08-18] MEDS ORDERED: Albuterol 2.5 MG/3 ML NEBULIZER IH ONE (08:25)
[2017-08-18] MEDS ORDERED: Lidocaine Viscous Oral Soln 15 ML SOLUTION MM ONE (08:25)
[2017-08-18] MEDS ORDERED: *HR* Midazolam HCl 2 MG/2 ML VIAL IVP ONE (08:25)
--- NOTE | 2017-08-18 08:25 | Pre-Sedation Evaluation ---
Pre-sedation evaluation - Pre-sedation checklist Date of procedure: 08/18/17 Procedure: Left heart cath Recent Vitals: Last Vital Signs Temp 97.4 F L 08/18/17 06:54 Pulse 91 08/18/17 06:54 Resp 24 08/18/17 07:45 BP 155/92 08/18/17 06:54 Pulse Ox 92 08/18/17 07:45 H&P (including ROS) documented in medical record: Yes Previous reaction to sedatives/anesthetics: No Dietary Status: NPO after Midnight Dentition: dentures removed Possible difficult airway: No ASA Classification *see protocol: CLASS III-Severe systemic disease Plan of Care: Pt appropriate candidate for procedure/moderate/conscious sedation , Risks/benefits of procedure/sedation discussed w/ patient/family
[2017-08-18] MEDS: hydroCHLOROthiazide 25 MG TABLET PO SCH (08:30)
[2017-08-18] MEDS: predniSONE 20 MG TABLET PO SCH (08:34)
[2017-08-18] MEDS: Gabapentin 300 MG CAPSULE PO SCH ×3 (08:36→21:10)
[2017-08-18] MEDS: GuaiFENesin/Dextromethorphan TABLET PO SCH (08:37)
[2017-08-18] MEDS: Verapamil ER (24 HR) 180 MG TABLET.ER PO SCH (08:38)
[2017-08-18] MEDS: Cefepime HCl 2,000 MG in Water for inj. (sterile) 20 ML 20 ML IVP SCH ×3 (08:39→23:29)
[2017-08-18] MEDS: Aspirin 81 MG TAB.CHEW PO SCH (08:39)
--- NOTE | 2017-08-18 08:42 | Pulmonology Progress Note ---
Date of Encounter: 08/18/17 Time of Encounter: 08:35 Assessment and Plan (1) Cough with hemoptysis Current Visit: Yes Status: Acute Patient hemoptysis has slowed down now and and offered bronchoscopy, patient declined and he will think about it. Discussed with the nurse to resume diet and keep him nothing by mouth postmidnight in case he will need bronchoscopy tomorrow. Overall prognosis is poor and to continue current treatment. 08/15 Today patient is feeling better and his hemoptysis has improved. Discussed with primary team regarding case culture and to change his antibiotics. Patient does not want bronchoscopy and he does not want to be nothing by mouth we will clinically monitor him please call for any questions. I also recommended infectious disease for recommendations regarding antibiotics. 08/17 patient continued to have hemoptysis and to have explained to him about bronchoscopy and he agreed. Patient tentatively is scheduled to have procedure tomorrow and have advised him not to eat or drink anything after midnight. Patient understand his condition could deteriorate with bronchoscopy. 08/18 patient was scheduled for bronchoscopy, however due to his worsening respiratory status this procedure would be high risk and his hemoptysis is less for that reason procedure was canceled and this was discussed with his family at the bedside. (2) Acute exacerbation of chronic obstructive airways disease Current Visit: No Status: Suspected Continue bronchodilators with systemic steroid as well as antibiotics (3) Acute and chronic respiratory failure Current Visit: Yes Status: Acute Patient has respiratory failure and procedure is being canceled. Advised patient and his family to try noninvasive ventilation. Qualifiers: Respiratory failure complication: hypoxia and hypercapnia Qualified Code(s) : J96.21 - Acute and chronic respiratory failure with hypoxia; J96.22 - Acute and chronic respiratory failure with hypercapnia; J96.22 - Acute and chronic respiratory failure with hypercapnia; J96.22 - Acute and chronic respiratory failure with hypercapnia Subjective Principal diagnosis: COPD exacerbation with bleeding into bullous cavity Interval history: Patient clinically has deteriorated and more shortness of breath, however hemoptysis is less. Objective PUL Vital signs: Last Vital Signs Temp 97.4 F L 08/18/17 06:54 Pulse 91 08/18/17 06:54 Resp 24 08/18/17 07:45 BP 155/92 08/18/17 06:54 Pulse Ox 89 08/18/17 07:55 General appearance: appears uncomfortable (Patient in moderate respiratory distress) Eyes: nonicteric ENT: oropharynx dry Neck: supple Effort: very labored Auscultation: bilateral: diminished breath sounds, rhonchi Percussion: bilateral: not dull Cardiovascular: irregular rhythm Gastrointestinal: normoactive bowel sounds, non-distended Extremities: cyanosis unable to assess due to mental status anxious Results - Laboratory Findings CBC and BMP: 08/17/17 11:13 08/17/17 11:13 ABG ABG pH 7.40 pH Units (7.32-7.45) 08/17/17 12:17 ABG pCO2 42 mmHg (35-45) 08/17/17 12:17 ABG pO2 50 mmHg (85-104) L* 08/17/17 12:17 ABG O2 Saturation 85 % (95-98) L 08/17/17 12:17 PT/INR, D-dimer PT 18.0 Seconds (9.4-12.1) H 08/08/17 03:34 Abnormal lab findings: Abnormal lab results WBC 40.2 K/mcL (4.3-11.1) H* 08/17/17 11:13 RBC 3.35 M/mcL (4.19-5.50) L 08/17/17 11:13 Hgb 8.7 g/dL (12.9-16.9) L 08/17/17 11:13 Hct 28.0 % (37.5-50.1) L 08/17/17 11:13 MCH 26.0 pg (28.0-33.3) L 08/17/17 11:13 MCHC 31.1 g/dL (31.6-35.5) L 08/17/17 11:13 RDW 19.0 % (11.5-14.5) H 08/17/17 11:13 Immature Gran % 5.1 % (0-4) H 08/14/17 07:17 Band Neutrophils % 10.0 % (0-4) H 08/17/17 11:13 Metamyelocytes % 2.0 % (0) H 08/17/17 11:13 Neutrophils # 33.8 K/mcL (1.6-8.9) H 08/17/17 11:13 Monocytes # 1.6 K/mcL (0.0-1.3) H 08/17/17 11:13 Eosinophils # 2.0 K/mcL (0.0-0.6) H 08/15/17 06:43 Nucleated RBCs/100 WBC 0.1 /100 WBC (0) H 08/17/17 11:13 Smudge Cells Present (Not Present) A 08/15/17 06:43 Toxic Granulation Present (Not Present) A 08/17/17 11:13 Large Platelets Present (Not Present) A 08/09/17 22:28 Hypochromasia Present (Not Present) A 08/17/17 11:13 Anisocytosis 1+ (Not Present) A 08/17/17 11:13 PT 18.0 Seconds (9.4-12.1) H 08/08/17 03:34 ABG pO2 50 mmHg (85-104) L* 08/17/17 12:17 ABG Total CO2 27 mEq/L (20-26) H 08/17/17 12:17 ABG O2 Saturation 85 % (95-98) L 08/17/17 12:17 Potassium 3.4 mEq/L (3.5-5.1) L 08/17/17 11:13 Chloride 109 mEq/L (98-107) H 08/17/17 11:13 Creatinine 0.62 mg/dL (0.70-1.30) L 08/17/17 11:13 BUN/Creatinine Ratio 31 (6-26) H 08/17/17 11:13 Calcium 7.1 mg/dL (8.6-10.3) L 08/17/17 11:13 Phosphorus 1.8 mg/dL (2.7-4.5) L 08/11/17 08:54 B-Natriuretic Peptide 182 pg/mL (Less than 100) H 08/08/17 03:34 Albumin 3.3 g/dL (3.5-5.7) L 08/08/17 03:34 Globulin 4.4 g/dL (2.4-3.5) H 08/08/17 03:34 Albumin/Globulin Ratio 0.8 (1.1-2.2) L 08/08/17 03:34 LDL Cholesterol, Calc 121 mg/dL (0-99) H 08/08/17 03:34 - Microbiology Findings Microbiology Findings: Microbiology, Last 48 Hours 08/11/17 16:56 Sputum Culture - Preliminary Sputum Acinetobacter ursingii Ruchi albicans Pseudomonas aeruginosa - Clinical Findings Intake & Output: Intake & Output 08/17/17 08/18/17 08/18/17 23:59 07:59 15:59 Intake Total 260 / 260 20 / 20 Output Total 150 / 150 150 / 150 Balance 110 / 110 -130 / -130 - VTE Documentation of Mechanical Device: Intermittent pneumatic compression device Consult Discharge Plan - Plan Referrals: Margie Estrella DO [Primary Care Provider] -
[2017-08-18] MEDS: 0.9 % Sodium Chloride 1,000 ML IVC SCH (08:53)
[2017-08-18 09:25] LABS: Hemoglobin 9.4 g/dL (12.9-16.9); Mean Corpuscular Hemoglobin 25.5 pg (28.0-33.3); Mean Platelet Volume 9.4 fL (9.4-12.4); Nucleated Red Blood Cells 0.1 /100 WBC (0)
[2017-08-18 09:26] LABS: Hematocrit 30.2 % (37.5-50.1); Mean Corpuscular HGB Conc 31.1 g/dL (31.6-35.5); Mean Corpuscular Volume 82.1 fL (83.0-100.0); Platelet Count 363 K/mcL (140-400); Red Blood Count 3.68 M/mcL (4.19-5.50)
[2017-08-18 09:42] LABS: BUN/Creatinine Ratio 46 (6-26); Blood Urea Nitrogen 27 mg/dL (8-23); Calcium 8.2 mg/dL (8.6-10.3); Carbon Dioxide 26 mEq/L (23-29); Chloride 106 mEq/L (98-107); Glucose 112 mg/dL (70-105); Osmolality,Calculated 294 (280-300); Potassium 3.6 mEq/L (3.5-5.1); Sodium 139 mEq/L (136-145); eGFR For Non-African Americans > 60 (> 60)
[2017-08-18 10:59] LABS: Lymphocytes # 0.8 K/mcL (0.6-4.6); Monocytes # 1.7 K/mcL (0.0-1.3); Neutrophils # 39.5 K/mcL (1.6-8.9); Platelet Estimate Normal (Normal)
[2017-08-18] MEDS: clonazePAM 0.5 MG TABLET PO PRN (12:45)
[2017-08-18] MEDS ORDERED: Ondansetron 4 MG/2 ML VIAL IVP PRN (13:49)
[2017-08-18] MEDS: methylPREDNISolone 125 MG/2 ML VIAL IVP SCH ×2 (15:56→23:29)
--- NOTE | 2017-08-18 17:36 | Palliative - Consult Note ---
Date of Encounter: 08/18/17 Time of Encounter: 17:40 - Assessment and Plan (1) Counseling regarding advanced care planning and goals of care Current Visit: Yes Status: Acute Assessment and plan: Patient unable to stay awake during conversation. Roz is at bedside. She states pt has never completed advanced directives that she is aware of. They share no children and have been for 33 yrs. He has many sibling in the [place] area that will be visiting. Discussed current clinical status - he is already DNR/DNI and has been very verbal he does not want intubated and on ventilator. understands that he is very ill, but hoping that he is still strong enough to fight infection, and hoping he stabilizes enough to have bronchoscopy. We discussed at length, that if his condition worsens, and they desire to transition to keeping him comfortable, that he would be eligible for hospice. She verbalized understanding, however, at this point, still wants to continue all current support and hope he improves. I did discuss my concerns that he has been here quite some time, and his condition has worsened. She verbalized understanding. Will continue to monitor and follow (2) Acute exacerbation of chronic obstructive airways disease Current Visit: No Status: Suspected (3) Pneumonia Current Visit: Yes Status: Acute Qualifiers: Pneumonia type: due to unspecified organism Laterality: right Lung location: unspecified part of lung Qualified Code(s): J18.9 - Pneumonia, unspecified organism (4) Afib Current Visit: No Status: Chronic Qualifiers: Atrial fibrillation type: paroxysmal Qualified Code(s): I48.0 - Paroxysmal atrial fibrillation Palliative-CN HPI - Data of Consult Consult date: 08/18/17 Requesting Physician: Jamie Vazquez Primary Care Provider: Silvino Riddle - Consult Narrative History of present illness: Mr. Bai is a 67 year old male who has been admitted for now 12 days and being treated for COPD, respiratory failure and pneumonia. He also has had hemoptysis during this stay. Sputum culture + for Ruchi, Pseudomonas, and acinetobacter. He is a long time pt of Dr Dasilva. He had refused bronchoscopy earlier in stay. He was on schedule for bronchoscopy today, however, his respiratory status declined and Dr. Dasilva did not feel pt stable enough for procedure. He has been adamant he does not want intubated. His leukocytosis is continuing to worsen despite antibiotic therapy and currently 44,000. Has remained hypoxic despite high flow oxygen and bipap. He has prior medical history of Tobacco abuse, steroid-dependent COPD, paroxysmal atrial fibrillation , fibromyalgia, hypertension, hyperlipidemia, GERD, chronically elevated WBC CAD with stent placement. Eliquis had to be discontinued r/t hemoptysis. is at bedside during my visit. They share no children together - she has 2. He came from large family, but they are all in [place]. He has 2 siblings here now and another 6 are supposed to visit this weekend. Patient is lethargic during my visit, and is arousable, but falls back to sleep during assessment and conversation. He appears in mild respiratory distress with accessory muscle use. Denies pain or discomfort. CC: Jamie Vazquez Past Med Surg Social Fam HX - Past Medical History Medical history: atrial fibrillation, COPD, fibromyalgia, GERD, hyperlipidemia, hypertension, myocardial infarction Psychiatric history: anxiety, depression - Past Surgical History Surgical History: appendectomy, other - Social History Smoking Status: Current every day smoker Smokeless Tobacco Status: Yes Alcohol use: none Drug use: none - Family History Sister Family Member Ethnicity: Non- Living Status: Still Living Hx Family Cardiac Disorders: Yes (HD) Hx Family Respiratory Disorders: No Hx Family Cancer: Yes (Breast) Hx Family GI Disorders: No Hx Family Endocrine Disorder: No Hx Family Neuromuscular Disorders: No Hx Family Neurologic Disorders: No Hx Family HEENT Disorders: No Hx Family Autoimmune Disorders: No Brother Family Member Ethnicity: Non- Living Status: Still Living Mother Family Member Ethnicity: Non- Living Status: Father Family Member Ethnicity: Non- Living Status: Hx Family Cardiac Disorders: No Hx Family Respiratory Disorders: No Hx Family Cancer: Yes Hx Family Endocrine Disorder: No Medications and Allergies Albuterol Neb [Proventil Neb] 2.5 mg IH TID 02/19/17 [History] Albuterol Sulfate [Albuterol Inhaler] 2 puff IH Q6H PRN 02/19/17 [History] Alendronate Sodium [Fosamax] 70 mg PO WE 02/19/17 [History] Atorvastatin [Lipitor] 40 mg PO HS 02/19/17 [History] Budesonide/Formoterol 160/4.5 [Symbicort 160/4.5] 2 puff IH BIDR 02/19/17 [ History] Cetirizine HCl [All Day Allergy] 10 mg PO DAILY 02/19/17 [History] Gabapentin [Neurontin] 900 mg PO TID 02/19/17 [History] Omeprazole [PriLOSEC] 20 mg PO DAILY 02/19/17 [History] Oxycodone HCl/Acetaminophen [Percocet 10-325 mg Tablet] 1 tab PO 5XD PRN [History] Theophylline Anhydrous [Oliver-24] 200 mg PO DAILY 02/19/17 [History] Verapamil HCl [Verapamil ER] 180 mg PO DAILY 02/19/17 [History] Apixaban [Eliquis] 5 mg PO BID #60 tablet 03/18/17 [Rx] Sertraline [Zoloft] 150 mg PO DAILY 06/06/17 [History] Clopidogrel [Plavix] 75 mg PO DAILY #30 tablet 06/10/17 [Rx] hydroCHLOROthiazide [Hydrochlorothiazide] 12.5 mg PO DAILY 07/12/17 [History] Metoprolol [Lopressor] 25 mg PO BID 08/07/17 [History] Multivitamin [One Daily Multivitamin] 1 each PO DAILY 08/07/17 [History] Potassium Chloride [K-Tab ER] 10 meq PO DAILY 08/07/17 [History] predniSONE [PredniSONE] 10 mg PO DAILY 08/07/17 [History] 3 Allergy/AdvReac Type Severity Reaction Status Date / Time tiotropium Allergy Rash Verified 08/07/17 15:42 [From Spiriva with HandiHaler] bee stings Allergy Anaphylaxis Uncoded 08/07/17 15:42 ROS unobtainable: due to mental status Palliative Care-Exam - Constitutional Vitals: Temp Pulse Resp BP Pulse Ox 97.4 F L 79 30 114/74 89 08/18/17 16:12 08/18/17 16:12 08/18/17 16:31 08/18/17 16:12 08/18/17 16:31 General appearance: Present: mild distress - Head Head Exam: Present: normal inspection, normocephalic - Eye Eye exam: Present: normal appearance, PERRL - Respiratory Respiratory exam: Present: accessory muscle use, decreased breath sounds Additional comments: Remains on bipap - Cardiovascular Cardiovascular exam: Present: +S1, +S2 - GI/Abdominal Exam GI/Abdominal exam: Present: distended, normal bowel sounds, soft - Extremities Exam Extremities exam: Present: normal capillary refill, normal inspection - Neurological Exam Additional comments: Patient lethargic at this time. Does arouse but Does not stay awake to follow commands. - Skin Skin exam: Present: dry, pallor, warm Internal Medicine - CN: Reslt - Labs CBC & Chem 7: 08/18/17 08:56 08/18/17 08:56 Labs: Short CBC 08/17/17 08/18/17 Range/Units 11:13 08:56 WBC 42.0 H* (4.3-11.1) K/mcL Hgb 9.4 L (12.9-16.9) g/dL Hct 30.2 L (37.5-50.1) % Plt Count 363 (140-400) K/mcL Neutrophils # 33.8 H 39.5 H (1.6-8.9) K/mcL BMP 08/18/17 08:56 Sodium 139 Potassium 3.6 Chloride 106 Carbon Dioxide 26 BUN 27 H Creatinine 0.59 L Glucose 112 H Calcium 8.2 L - ABG Interpretation ABG results: ABG ABG pH 7.40 pH Units (7.32-7.45) 08/17/17 12:17 ABG pCO2 42 mmHg (35-45) 08/17/17 12:17 ABG pO2 50 mmHg (85-104) L* 08/17/17 12:17 ABG O2 Saturation 85 % (95-98) L 08/17/17 12:17 PT/INR, D-dimer PT 18.0 Seconds (9.4-12.1) H 08/08/17 03:34 Consult Discharge Plan - Plan Referrals: Lisbeth Ewing PURCHASING COORDINATOR [Advanced Practice Nurse] - 08/25/17 10:00 am Palliative Quality Palliative Quality: Screen for Code Status: Yes, Screen for Goals of Care: Yes, Screen for Pain: Yes, If Pain Regimen Started, Initiate Bowel Regimen: NA, Screen for Nausea/Vomitting: Yes Code Status: 08/07/17 20:33 Resuscitation Status: Active [RES] Routine Comment: Resuscitation Status: [id number]
--- NOTE | 2017-08-18 18:38 | Internal Med Progress Note ---
Date of Encounter: 08/18/17 Time of Encounter: 11:00 - Assessment and plan (1) Sepsis Current Visit: Yes Status: Acute Assessment and plan: Secondary to pneumonia; cultures positive for Acinetobacter and psuedomonas Patient with worsening respiratory failure and increased leukocytosis Patient with poor prognosis and palliative consulted Qualifiers: Sepsis type: sepsis due to unspecified organism Qualified Code(s): A41.9 - Sepsis, unspecified organism (2) Pneumonia Current Visit: Yes Status: Acute Assessment and plan: Cultures as above; ID/pulmonology following and agree the patient's poor prognosis Palliative care following Qualifiers: Pneumonia type: due to unspecified organism Laterality: right Lung location: unspecified part of lung Qualified Code(s): J18.9 - Pneumonia, unspecified organism (3) Acute and chronic respiratory failure Current Visit: Yes Status: Acute Assessment and plan: Patient worsening shortness of breath today and will be placed on BiPAP Patient also will continue hemoptysis Pulmonology following and is too unstable for bronchoscopy Agreement with palliative care Qualifiers: Respiratory failure complication: hypoxia Qualified Code(s): J96.21 - Acute and chronic respiratory failure with hypoxia (4) COPD exacerbation Current Visit: Yes Status: Acute Assessment and plan: Secondary to the above;continue bronchodilators. On oral prednisone. (5) Cough with hemoptysis Current Visit: Yes Status: Acute Assessment and plan: Patient with continued hemoptysis this morning but too unstable for bronchoscopy (6) Atrial fibrillation with RVR Current Visit: Yes Status: Chronic (7) DVT prophylaxis Current Visit: Yes Status: Acute Assessment and plan: on SCDs alone. No medical anticoagulation due to hemoptysis - Subjective Interval history: Patient with continued increased work of breathing and shortness of breath this morning and continued hypoxia on high flow oxygen. Patient was placed on BiPAP and palliative care consult as he is too unstable from bronchoscopy per pulmonology - Constitutional Vitals: Temp Pulse Resp BP Pulse Ox 97.4 F L 79 30 114/74 89 08/18/17 16:12 08/18/17 16:12 08/18/17 16:31 08/18/17 16:12 08/18/17 16:31 General appearance: Present: cooperative, mild distress, A&O X 3, no acute distress, severe distress, answers questions appropriately - Respiratory Respiratory exam: Present: respiratory distress, tachypnea - Cardiovascular Cardiovascular exam: Present: tachycardia - Skin Skin exam: Present: pallor Internal Medicine: Result - Labs CBC & Chem 7: 08/18/17 08:56 08/18/17 08:56 Labs: Short CBC 08/18/17 Range/Units 08:56 WBC 42.0 H* (4.3-11.1) K/mcL Hgb 9.4 L (12.9-16.9) g/dL Hct 30.2 L (37.5-50.1) % Plt Count 363 (140-400) K/mcL Neutrophils # 39.5 H (1.6-8.9) K/mcL BMP 08/18/17 08:56 Sodium 139 Potassium 3.6 Chloride 106 Carbon Dioxide 26 BUN 27 H Creatinine 0.59 L Glucose 112 H Calcium 8.2 L - ABG Interpretation ABG results: ABG ABG pH 7.40 pH Units (7.32-7.45) 08/17/17 12:17 ABG pCO2 42 mmHg (35-45) 08/17/17 12:17 ABG pO2 50 mmHg (85-104) L* 08/17/17 12:17 ABG O2 Saturation 85 % (95-98) L 08/17/17 12:17 PT/INR, D-dimer PT 18.0 Seconds (9.4-12.1) H 08/08/17 03:34 - VTE Documentation of Mechanical Device: Intermittent pneumatic compression device Consult Discharge Plan - Plan Referrals: Lisbeth Ewing CNP [Advanced Practice Nurse] - 08/25/17 10:00 am
[2017-08-18] MEDS: *HR* Metoprolol 5 MG/5 ML VIAL IVP PRN (20:54)
[2017-08-19] MEDS: Ipratropium/Albuterol Neb 3 ML IH SCH ×6 (04:10→23:27)
[2017-08-19] MEDS: Budesonide/Formoterol 160/4.5 1 PUFF INH IH SCH ×2 (07:43→19:59)
--- NOTE | 2017-08-19 08:46 | Palliative Progress Note ---
Date of Encounter: 08/19/17 Time of Encounter: 07:40 - Assessment and plan (1) Acute exacerbation of chronic obstructive airways disease Current Visit: No Status: Suspected Assessment and plan: Breathing appears stable but not really improved. plan per hospitalist team. (2) Counseling regarding advanced care planning and goals of care Current Visit: Yes Status: Acute Assessment and plan: DNR CCA DNI, she is much more awake and alert than when seen by my nurse practitioner yesterday. Agree that he for hospice care. Does not improve. She did have [facility] home [facility] prior to admission. We will continue to follow. (3) Pneumonitis Current Visit: No Status: Acute Assessment and plan: Blood culture negative, however the sputum is showing a Citrobacter Ruchi and Pseudomonas he is on antibiotics plan per hospitalist team - Time Spent With Patient Total time spent is greater than 50% in coordination of care (as documented) at patient's floor/unit and/or counseling patient: - Subjective Interval history: Patient states no real changes in his breathing. Has family coming in today. She is on high flow mask at this time, using BiPAP at night. Seems to be tolerating this well. - Constitutional Vitals: Abnormal lab results WBC 42.0 K/mcL (4.3-11.1) H* 08/18/17 08:56 RBC 3.68 M/mcL (4.19-5.50) L 08/18/17 08:56 Hgb 9.4 g/dL (12.9-16.9) L 08/18/17 08:56 Hct 30.2 % (37.5-50.1) L 08/18/17 08:56 MCV 82.1 fL (83.0-100.0) L 08/18/17 08:56 MCH 25.5 pg (28.0-33.3) L 08/18/17 08:56 MCHC 31.1 g/dL (31.6-35.5) L 08/18/17 08:56 RDW 19.0 % (11.5-14.5) H 08/18/17 08:56 Immature Gran % 5.1 % (0-4) H 08/14/17 07:17 Metamyelocytes % 2.0 % (0) H 08/17/17 11:13 Neutrophils # 39.5 K/mcL (1.6-8.9) H 08/18/17 08:56 Monocytes # 1.7 K/mcL (0.0-1.3) H 08/18/17 08:56 Eosinophils # 2.0 K/mcL (0.0-0.6) H 08/15/17 06:43 Nucleated RBCs/100 WBC 0.1 /100 WBC (0) H 08/18/17 08:56 Smudge Cells Present (Not Present) A 08/15/17 06:43 Toxic Granulation Present (Not Present) A 08/17/17 11:13 Large Platelets Present (Not Present) A 08/09/17 22:28 Hypochromasia Present (Not Present) A 08/17/17 11:13 Anisocytosis 1+ (Not Present) A 08/17/17 11:13 PT 18.0 Seconds (9.4-12.1) H 08/08/17 03:34 ABG pO2 50 mmHg (85-104) L* 08/17/17 12:17 ABG Total CO2 27 mEq/L (20-26) H 08/17/17 12:17 ABG O2 Saturation 85 % (95-98) L 08/17/17 12:17 BUN 27 mg/dL (8-23) H 08/18/17 08:56 Creatinine 0.59 mg/dL (0.70-1.30) L 08/18/17 08:56 BUN/Creatinine Ratio 46 (6-26) H 08/18/17 08:56 Glucose 112 mg/dL (70-105) H 08/18/17 08:56 Calcium 8.2 mg/dL (8.6-10.3) L 08/18/17 08:56 Phosphorus 1.8 mg/dL (2.7-4.5) L 08/11/17 08:54 B-Natriuretic Peptide 182 pg/mL (Less than 100) H 08/08/17 03:34 Albumin 3.3 g/dL (3.5-5.7) L 08/08/17 03:34 Globulin 4.4 g/dL (2.4-3.5) H 08/08/17 03:34 Albumin/Globulin Ratio 0.8 (1.1-2.2) L 08/08/17 03:34 LDL Cholesterol, Calc 121 mg/dL (0-99) H 08/08/17 03:34 General appearance: Present: no acute distress - Respiratory Respiratory exam: Present: decreased breath sounds (Overall decreased), rhonchi , wheezes (Right greater than left) - Cardiovascular Cardiovascular exam: Present: RRR (Not tachycardic at this time did notice the patient had a very high heart rate earlier per the I signs.) - GI/Abdominal GI/Abdominal exam: Present: normal bowel sounds, soft. Absent: tenderness - Extremities Exam Extremities exam: Present: normal inspection. Absent: pedal edema, tenderness - Neurological Exam Neurological exam: Present: alert - Psychiatric Psychiatric exam: Absent: agitated, anxious - Skin Skin exam: Present: dry, warm Palliative Quality Palliative Quality: Screen for Code Status: Yes, Screen for Goals of Care: Yes, Screen for Pain: Yes, If Pain Regimen Started, Initiate Bowel Regimen: NA, Screen for Nausea/Vomitting: Yes Code Status: 08/07/17 20:33 Resuscitation Status: Active [RES] Routine Comment: Resuscitation Status: [id number] - Labs CBC & Chem 7: 08/18/17 08:56 08/18/17 08:56 Labs: Laboratory Results - last 24 hr 08/18/17 08/18/17 08:56 08:56 WBC 42.0 H* RBC 3.68 L Hgb 9.4 L Hct 30.2 L MCV 82.1 L MCH 25.5 L MCHC 31.1 L RDW 19.0 H Plt Count 363 MPV 9.4 Seg Neutrophils % 92.0 Band Neutrophils % 2.0 Lymphocytes % 2.0 Monocytes % 4.0 Neutrophils # 39.5 H Lymphocytes # 0.8 Monocytes # 1.7 H Nucleated RBCs/100 WBC 0.1 H Platelet Estimate Normal Sodium 139 Potassium 3.6 Chloride 106 Carbon Dioxide 26 BUN 27 H Creatinine 0.59 L Est GFR ( Amer) > 60 Est GFR (Non-Af Amer) > 60 BUN/Creatinine Ratio 46 H Glucose 112 H Calculated Osmolality 294 Calcium 8.2 L - ABG Interpretation ABG results: ABG ABG pH 7.40 pH Units (7.32-7.45) 08/17/17 12:17 ABG pCO2 42 mmHg (35-45) 08/17/17 12:17 ABG pO2 50 mmHg (85-104) L* 08/17/17 12:17 ABG O2 Saturation 85 % (95-98) L 08/17/17 12:17 PT/INR, D-dimer PT 18.0 Seconds (9.4-12.1) H 08/08/17 03:34 Consult Discharge Plan - Plan Referrals: Lisbeth Ewing CNP [Advanced Practice Nurse] - 08/25/17 10:00 am
[2017-08-19] MEDS: methylPREDNISolone 125 MG/2 ML VIAL IVP SCH ×2 (09:41→16:08)
[2017-08-19] MEDS: Gabapentin 300 MG CAPSULE PO SCH ×3 (09:44→20:48)
[2017-08-19] MEDS: Verapamil ER (24 HR) 180 MG TABLET.ER PO SCH (09:44)
[2017-08-19] MEDS: hydroCHLOROthiazide 25 MG TABLET PO SCH (09:45)
[2017-08-19] MEDS: Aspirin 81 MG TAB.CHEW PO SCH (09:45)
[2017-08-19] MEDS: Cefepime HCl 2,000 MG in Water for inj. (sterile) 20 ML 20 ML IVP SCH ×2 (09:50→16:09)
[2017-08-19 11:14] LABS: Hematocrit 31.3 % (37.5-50.1); Hemoglobin 9.8 g/dL (12.9-16.9); Mean Corpuscular HGB Conc 31.3 g/dL (31.6-35.5); Nucleated Red Blood Cells 0.1 /100 WBC (0); Red Cell Distribution Width 19.4 % (11.5-14.5)
[2017-08-19 11:16] LABS: Mean Corpuscular Hemoglobin 25.5 pg (28.0-33.3); Mean Corpuscular Volume 81.3 fL (83.0-100.0); Platelet Count 411 K/mcL (140-400); Red Blood Count 3.85 M/mcL (4.19-5.50)
[2017-08-19 11:32] LABS: BUN/Creatinine Ratio 63 (6-26); Blood Urea Nitrogen 45 mg/dL (8-23); Calcium 8.7 mg/dL (8.6-10.3); Carbon Dioxide 23 mEq/L (23-29); Chloride 106 mEq/L (98-107); Glucose 149 mg/dL (70-105); Osmolality,Calculated 310 (280-300); Potassium 3.6 mEq/L (3.5-5.1); Sodium 143 mEq/L (136-145); eGFR For Non-African Americans > 60 (> 60)
[2017-08-19 12:08] LABS: Large Platelets Present (Not Present); Lymphocytes # 2.4 K/mcL (0.6-4.6); Monocytes # 2.4 K/mcL (0.0-1.3); Neutrophils # 34.9 K/mcL (1.6-8.9); Platelet Estimate Normal (Normal); Toxic Granulation Present (Not Present)
[2017-08-19 12:09] LABS: Anisocytosis 1+ (Not Present); Macrocytosis Present (Not Present); Microcytosis Present (Not Present)
[2017-08-19] MEDS: *HR* Metoprolol 5 MG/5 ML VIAL IVP PRN ×2 (12:11→19:47)
[2017-08-19] MEDS: 0.9 % Sodium Chloride 1,000 ML IVC SCH (12:11)
[2017-08-19] MEDS ORDERED: *HR* LORazepam 2 MG/ML VIAL IVP ONE (13:19)
[2017-08-19] MEDS ORDERED: *HR* LORazepam 2 MG/ML VIAL ONE (13:23)
[2017-08-19] MEDS ORDERED: *HR* LORazepam 2 MG/ML VIAL IVP PRN ×2 (14:53→22:31)
[2017-08-19] MEDS ORDERED: Morphine Oral CONC 5 MG/0.25 ML ORAL.SYG PO PRN (15:41)
[2017-08-19] MEDS ORDERED: MORPHINE SUL Oral CONC 10 MG/0.5 ML ORAL.SYG PO PRN (16:30)
--- NOTE | 2017-08-19 17:06 | Internal Med Progress Note ---
Date of Encounter: 08/19/17 Time of Encounter: 13:00 - Assessment and plan (1) Acute and chronic respiratory failure Current Visit: Yes Status: Acute Assessment and plan: Patient with worsening respiratory status even on BiPAP Pulmonology following and is too unstable for bronchoscopy Pulmonology and infectious disease in agreement with palliative care Qualifiers: Respiratory failure complication: hypoxia Qualified Code(s): J96.21 - Acute and chronic respiratory failure with hypoxia (2) Counseling regarding goals of care Current Visit: Yes Status: Acute Assessment and plan: Family meeting was held with patient in the room with recommendations to proceed with palliative care due to patient's worsening respiratory status, him not wanting intubation and being too unstable for bronchoscopy Discussed with palliative care with recommendations for morphine oral concentration every 2 hours as needed (3) Sepsis Current Visit: Yes Status: Acute Assessment and plan: Secondary to pneumonia; cultures positive for Acinetobacter and psuedomonas Patient with worsening respiratory failure and increased leukocytosis Patient with poor prognosis and palliative consulted Qualifiers: Sepsis type: sepsis due to unspecified organism Qualified Code(s): A41.9 - Sepsis, unspecified organism (4) Pneumonia Current Visit: Yes Status: Acute Assessment and plan: Cultures as above; ID/pulmonology following and agree the patient's poor prognosis Palliative care following Qualifiers: Pneumonia type: due to unspecified organism Laterality: right Lung location: unspecified part of lung Qualified Code(s): J18.9 - Pneumonia, unspecified organism (5) COPD exacerbation Current Visit: Yes Status: Acute Assessment and plan: Secondary to the above. . (6) Cough with hemoptysis Current Visit: Yes Status: Acute Assessment and plan: Patient too unstable for bronchoscopy per pulmonology (7) Atrial fibrillation with RVR Current Visit: Yes Status: Chronic Assessment and plan: Rate controlled (8) DVT prophylaxis Current Visit: Yes Status: Acute Assessment and plan: on SCDs alone. No medical anticoagulation due to hemoptysis - Subjective Interval history: Patient worsening respiratory status this morning. In respiratory distress using accessory muscles for breathing on BiPAP Family meeting was held with patient in the room with recommendations to proceed with palliative care due to patient not wanting intubation and being too unstable for bronchoscopy - Constitutional Vitals: Temp Pulse Resp BP Pulse Ox 97.7 F 88 27 145/82 92 08/19/17 11:08 08/19/17 12:20 08/19/17 15:48 08/19/17 15:48 08/19/17 15:48 General appearance: Present: cooperative, mild distress, A&O X 3, no acute distress, severe distress, answers questions appropriately - Respiratory Respiratory exam: Present: accessory muscle use, respiratory distress, tachypnea - Skin Skin exam: Present: pallor Internal Medicine: Result - Labs CBC & Chem 7: 08/19/17 10:17 08/19/17 10:17 Labs: Short CBC 08/19/17 Range/Units 10:17 WBC 39.7 H* (4.3-11.1) K/mcL Hgb 9.8 L (12.9-16.9) g/dL Hct 31.3 L (37.5-50.1) % Plt Count 411 H (140-400) K/mcL Neutrophils # 34.9 H (1.6-8.9) K/mcL BMP 08/19/17 10:17 Sodium 143 Potassium 3.6 Chloride 106 Carbon Dioxide 23 BUN 45 H Creatinine 0.71 Glucose 149 H Calcium 8.7 - ABG Interpretation ABG results: ABG ABG pH 7.40 pH Units (7.32-7.45) 08/17/17 12:17 ABG pCO2 42 mmHg (35-45) 08/17/17 12:17 ABG pO2 50 mmHg (85-104) L* 08/17/17 12:17 ABG O2 Saturation 85 % (95-98) L 08/17/17 12:17 PT/INR, D-dimer PT 18.0 Seconds (9.4-12.1) H 08/08/17 03:34 - VTE Documentation of Mechanical Device: Graduated compression elastic hosiery Consult Discharge Plan - Plan Referrals: Lisbeth Ewing RESTAURANT GREETER [Advanced Practice Nurse] - 08/25/17 10:00 am
[2017-08-19] MEDS ORDERED: *HR* HYDROmorphone (PF) 1 MG/ML SYRINGE IVP ONE (19:09)
[2017-08-19] MEDS ORDERED: *HR* Morphine 2 MG/ML SYRINGE IVP SCH (22:30)
[2017-08-19] MEDS ORDERED: *HR* Morphine 2 MG/ML SYRINGE IVP PRN (23:31)
--- NOTE | 2017-08-19 23:47 | Event Note ---
Date of Encounter: 08/19/17 Time of Encounter: 23:43 called for meds on this patient. Order was missunderstood and orginally put in as morphine 3 mg iv q 1 hr scheduled should have been prn. I reviewed the order and called the floor to correct it. the RN did so. Order is now correct 3 mg morphine q 1 hr prn sob/pain in a palliative patient (use of morphine is authorized in palliative patients. Will consider change to fentanyl.
[2017-08-19] MEDS ORDERED: *HR* FentaNYL (PF) 100 MCG/2 ML VIAL IVP PRN (23:48)
[2017-08-19] MEDS ORDERED: MORPHINE SUL Oral CONC 10 MG/0.5 ML ORAL.SYG SL PRN (23:51)
--- NOTE | 2017-08-19 23:55 | Event Note ---
Date of Encounter: 08/19/17 Time of Encounter: 23:53 d/t opoid shrotage I will stop iv morphine and use 25 mcg fentanyl every hr prn for sob or pain. order was changed also oral morphine is ok SL even though the patient is unable to swallow order changed to reflect sl administration
[2017-08-20] MEDS: methylPREDNISolone 125 MG/2 ML VIAL IVP SCH ×2 (03:10→08:21)
[2017-08-20] MEDS: Cefepime HCl 2,000 MG in Water for inj. (sterile) 20 ML 20 ML IVP SCH ×2 (03:10→08:22)
[2017-08-20] MEDS: Ipratropium/Albuterol Neb 3 ML IH SCH ×2 (03:40→08:03)
[2017-08-20] MEDS: hydroCHLOROthiazide 25 MG TABLET PO SCH (07:41)
[2017-08-20] MEDS: Verapamil ER (24 HR) 180 MG TABLET.ER PO SCH (07:41)
[2017-08-20] MEDS: Gabapentin 300 MG CAPSULE PO SCH ×2 (07:41→07:48)
[2017-08-20] MEDS: Aspirin 81 MG TAB.CHEW PO SCH (07:41)
[2017-08-20] MEDS: 0.9 % Sodium Chloride 1,000 ML IVC SCH (07:42)
[2017-08-20] MEDS: Budesonide/Formoterol 160/4.5 1 PUFF INH IH SCH (08:03)
--- NOTE | 2017-08-20 08:04 | Palliative Progress Note ---
Date of Encounter: 08/20/17 Time of Encounter: 07:15 - Assessment and plan (1) Acute exacerbation of chronic obstructive airways disease Current Visit: No Status: Suspected Assessment and plan: Breathing is definitely worse, patient is now BiPAP dependent and also unresponsive to voice yesterday the patient was at least talking to me and was on high flow mask. (2) Counseling regarding advanced care planning and goals of care Current Visit: Yes Status: Acute Assessment and plan: DNR CCA DNI, he is much less awake today and there is no family present. I have discussed with the attending hospitalist hospice will be counseled to. He will not be able to admit today, however they can give family full disclosure and admission could take place tomorrow if can be worked out. (3) Pneumonitis Current Visit: No Status: Acute Assessment and plan: Blood culture negative, however the sputum is showing a Citrobacter Ruchi and Pseudomonas he is on antibiotics plan per hospitalist team Plan continues to be poor hospitalist team patient is declining. Medications were adjusted last night for comfort. - Time Spent With Patient Total time spent is greater than 50% in coordination of care (as documented) at patient's floor/unit and/or counseling patient: - Subjective Interval history: Patient is now unresponsive to verbal, since family decided last night to make the patient comfort care only. Question comfort care. I have discussed with the sending hospitalist, he has authorized me to go ahead and consult hospice. Patient is comfortable at this time after medication adjustments last night. - Constitutional Vitals: Abnormal lab results WBC 39.7 K/mcL (4.3-11.1) H* 08/19/17 10:17 RBC 3.85 M/mcL (4.19-5.50) L 08/19/17 10:17 Hgb 9.8 g/dL (12.9-16.9) L 08/19/17 10:17 Hct 31.3 % (37.5-50.1) L 08/19/17 10:17 MCV 81.3 fL (83.0-100.0) L 08/19/17 10:17 MCH 25.5 pg (28.0-33.3) L 08/19/17 10:17 MCHC 31.3 g/dL (31.6-35.5) L 08/19/17 10:17 RDW 19.4 % (11.5-14.5) H 08/19/17 10:17 Plt Count 411 K/mcL (140-400) H 08/19/17 10:17 Immature Gran % 5.1 % (0-4) H 08/14/17 07:17 Metamyelocytes % 2.0 % (0) H 08/17/17 11:13 Neutrophils # 34.9 K/mcL (1.6-8.9) H 08/19/17 10:17 Monocytes # 2.4 K/mcL (0.0-1.3) H 08/19/17 10:17 Eosinophils # 2.0 K/mcL (0.0-0.6) H 08/15/17 06:43 Nucleated RBCs/100 WBC 0.1 /100 WBC (0) H 08/19/17 10:17 Smudge Cells Present (Not Present) A 08/15/17 06:43 Toxic Granulation Present (Not Present) A 08/19/17 10:17 Large Platelets Present (Not Present) A 08/19/17 10:17 Hypochromasia Present (Not Present) A 08/17/17 11:13 Anisocytosis 1+ (Not Present) A 08/19/17 10:17 Microcytosis Present (Not Present) A 08/19/17 10:17 Macrocytosis Present (Not Present) A 08/19/17 10:17 PT 18.0 Seconds (9.4-12.1) H 08/08/17 03:34 ABG pO2 50 mmHg (85-104) L* 08/17/17 12:17 ABG Total CO2 27 mEq/L (20-26) H 08/17/17 12:17 ABG O2 Saturation 85 % (95-98) L 08/17/17 12:17 BUN 45 mg/dL (8-23) H 08/19/17 10:17 BUN/Creatinine Ratio 63 (6-26) H 08/19/17 10:17 Glucose 149 mg/dL (70-105) H 08/19/17 10:17 Calculated Osmolality 310 (280-300) H 08/19/17 10:17 Phosphorus 1.8 mg/dL (2.7-4.5) L 08/11/17 08:54 B-Natriuretic Peptide 182 pg/mL (Less than 100) H 08/08/17 03:34 Albumin 3.3 g/dL (3.5-5.7) L 08/08/17 03:34 Globulin 4.4 g/dL (2.4-3.5) H 08/08/17 03:34 Albumin/Globulin Ratio 0.8 (1.1-2.2) L 08/08/17 03:34 LDL Cholesterol, Calc 121 mg/dL (0-99) H 08/08/17 03:34 General appearance: Present: no acute distress - Respiratory Respiratory exam: Present: decreased breath sounds - Cardiovascular Cardiovascular exam: Present: RRR - GI/Abdominal GI/Abdominal exam: Present: normal bowel sounds, soft. Absent: tenderness - Extremities Exam Extremities exam: Present: normal inspection. Absent: pedal edema, tenderness - Neurological Exam Neurological exam: Present: altered - Psychiatric Psychiatric exam: Absent: agitated, anxious - Skin Skin exam: Present: dry, warm Palliative Quality Palliative Quality: Screen for Code Status: Yes, Screen for Goals of Care: Yes, Screen for Pain: Yes, If Pain Regimen Started, Initiate Bowel Regimen: NA, Screen for Nausea/Vomitting: Yes Code Status: 08/19/17 20:07 CODE [Resuscitation Status: Active] [RES] Routine Comment: Resuscitation Status: DNR-Comfort Care - Labs CBC & Chem 7: 08/19/17 10:17 08/19/17 10:17 Labs: Laboratory Results - last 24 hr 08/19/17 08/19/17 10:17 10:17 WBC 39.7 H* RBC 3.85 L Hgb 9.8 L Hct 31.3 L MCV 81.3 L MCH 25.5 L MCHC 31.3 L RDW 19.4 H Plt Count 411 H MPV 10.0 Seg Neutrophils % 86.0 Band Neutrophils % 2.0 Lymphocytes % 6.0 Monocytes % 6.0 Neutrophils # 34.9 H Lymphocytes # 2.4 Monocytes # 2.4 H Nucleated RBCs/100 WBC 0.1 H Toxic Granulation Present A Platelet Estimate Normal Large Platelets Present A Anisocytosis 1+ A Microcytosis Present A Macrocytosis Present A Sodium 143 Potassium 3.6 Chloride 106 Carbon Dioxide 23 BUN 45 H Creatinine 0.71 Est GFR ( Amer) > 60 Est GFR (Non-Af Amer) > 60 BUN/Creatinine Ratio 63 H Glucose 149 H Calculated Osmolality 310 H Calcium 8.7 - ABG Interpretation ABG results: ABG ABG pH 7.40 pH Units (7.32-7.45) 08/17/17 12:17 ABG pCO2 42 mmHg (35-45) 08/17/17 12:17 ABG pO2 50 mmHg (85-104) L* 08/17/17 12:17 ABG O2 Saturation 85 % (95-98) L 08/17/17 12:17 PT/INR, D-dimer PT 18.0 Seconds (9.4-12.1) H 08/08/17 03:34 Consult Discharge Plan - Plan Referrals: Lisbeth Ewing, CAKE DECORATOR [Advanced Practice Nurse] - 08/25/17 10:00 am
[2017-08-20 08:09] VITALS: BP 82/48
--- NOTE | 2017-08-20 16:30 | Event Note ---
Date of Encounter: 08/20/17 Time of Encounter: 10:55 Notified by the nurse about patient being unresponsive and not breathing. On examination of the patient, he was unresponsive, pupils were bilaterally dilated without bilateral conjunctival reflex and did not respond to painful stimuli. Heart sounds were not auscultated and no spontaneous breathing was observed. Patient was pronounced at 11:55 on 08/20/17. Family was present at the bedside at pronouncement.
--- NOTE | 2017-08-20 16:35 | Discharge Summary ---
- NOTES TO OUTPATIENT PROVIDER Notes to Outpatient Provider: Orders not resulted at time of discharge: Pending orders 08/17/17 11:13 Culture,Blood,Additional [BC] Routine 08/19/17 12:10 EKG [ECG 12 lead ECG] [ECG] Routine Date of Encounter: 08/20/17 Time of Encounter: 11:55 - Discharge Diagnosis (1) Acute and chronic respiratory failure Priority: Primary Status: Acute Respiratory failure complication: hypoxia (2) Counseling regarding goals of care Priority: Secondary Status: Acute (3) Sepsis Priority: Primary Status: Acute Qualifiers: Sepsis type: sepsis due to unspecified organism Qualified Code(s): A41.9 - Sepsis, unspecified organism (4) Pneumonia Priority: Primary Status: Acute Qualifiers: Pneumonia type: due to unspecified organism Laterality: right Lung location: unspecified part of lung Qualified Code(s): J18.9 - Pneumonia, unspecified organism (5) COPD exacerbation Priority: Secondary Status: Acute (6) Cough with hemoptysis Priority: Primary Status: Acute (7) Atrial fibrillation with RVR Priority: Secondary Status: Chronic Hospital course: Mr. Bai is a 67 year old male - Time Spent with Patient Total time spent providing and/or coordinating discharge services: - Discharge Medications Home Medications: Albuterol Neb [Proventil Neb] 2.5 mg IH TID 02/19/17 [History] Albuterol Sulfate [Albuterol Inhaler] 2 puff IH Q6H PRN 02/19/17 [History] Alendronate Sodium [Fosamax] 70 mg PO WE 02/19/17 [History] Atorvastatin [Lipitor] 40 mg PO HS 02/19/17 [History] Budesonide/Formoterol 160/4.5 [Symbicort 160/4.5] 2 puff IH BIDR 02/19/17 [ History] Cetirizine HCl [All Day Allergy] 10 mg PO DAILY 02/19/17 [History] Gabapentin [Neurontin] 900 mg PO TID 02/19/17 [History] Omeprazole [PriLOSEC] 20 mg PO DAILY 02/19/17 [History] Oxycodone HCl/Acetaminophen [Percocet 10-325 mg Tablet] 1 tab PO 5XD PRN [History] Theophylline Anhydrous [Oliver-24] 200 mg PO DAILY 02/19/17 [History] Verapamil HCl [Verapamil ER] 180 mg PO DAILY 02/19/17 [History] Apixaban [Eliquis] 5 mg PO BID #60 tablet 03/18/17 [Rx] Sertraline [Zoloft] 150 mg PO DAILY 06/06/17 [History] Clopidogrel [Plavix] 75 mg PO DAILY #30 tablet 06/10/17 [Rx] hydroCHLOROthiazide [Hydrochlorothiazide] 12.5 mg PO DAILY 07/12/17 [History] Metoprolol [Lopressor] 25 mg PO BID 08/07/17 [History] Multivitamin [One Daily Multivitamin] 1 each PO DAILY 08/07/17 [History] Potassium Chloride [K-Tab ER] 10 meq PO DAILY 08/07/17 [History] predniSONE [PredniSONE] 10 mg PO DAILY 08/07/17 [History] Allergies/Adverse Reactions: 3 Allergy/AdvReac Type Severity Reaction Status Date / Time tiotropium Allergy Rash Verified 08/07/17 15:42 [From Spiriva with [employer]] bee stings Allergy Anaphylaxis Uncoded 08/07/17 15:42 Date of admission: 08/07/17 20:33 Primary care physician: Silvino Riddle Consults: 08/08/17 16:38 Consult to Cardiology [CONS] Routine Comment: Consulting Provider: Cardiology [facility] Reason for Consult: A. fib with RVR Call Completed: Yes Consult to Pulmonology [CONS] Routine Consulting Provider: Pulm Crit Care [facility] Sleep [facility] Reason for Consult: COPD exacerbation Call Completed: Yes 08/16/17 08:33 Consult to Infectious Diseases [CONS] Routine Consulting Provider: Infectious Disease [facility] Reason for Consult: Leukocytosis Time Notified: 08:00 Call Completed: Yes 08/18/17 16:49 Consult to Palliative Care [CONS] Routine Comment: Consulting Provider: Palliative Care [place] Reason for Consult: Poor prognosis for acute respiratory failure with hemoptysis Time Notified: 15:00 Call Completed: Yes 08/19/17 10:26 Consult to Speech Therapy [CONS] Stat Comment: Evaluate, develop and implement POC Reason for Consult: coughing with pills/food. not tolerating well. Time Notified: 10:27 Call Completed: Yes - Constitutional Vitals: Temp Pulse Resp BP Pulse Ox 98.4 F 90 24 82/48 86 08/20/17 07:00 08/20/17 08:30 08/20/17 08:30 08/20/17 08:03 08/20/17 08:30 General appearance: Present: cooperative, mild distress, A&O X 3, no acute distress, severe distress, answers questions appropriately - Patient Status Disposition: Condition: Undetermined - Discharge Instructions Follow Up With: Lisbeth Ewing [employer] CALL CENTER AGENT [Advanced Practice Nurse] - 08/25/17 10:00 am - VTE Documentation of Mechanical Device: Intermittent pneumatic compression device
--- NOTE | 2017-08-20 16:59 | Death Note ---
Discharge Sum: Summary - Date and Time Date of admission: 08/07/17 20:33 Date of : 08/20/17 Time of : 11:55 - Summary Details: Patient was a 67-year-old man with past medical history significant for atrial fibrillation, coronary arterial disease hypertension and hyperlipidemia who presented to the ER on 08/07/17 due to shortness of breath. Patient was complaining of worsening shortness of breath for the past 48 hours prior to admission although states that patient has had several months of shortness of breath. Patient was also experiencing worsening cough along with change in the color of sputum. Due to his persistent worsening symptoms patient decided to call squad for further evaluation. In the ER, patient was noted to have a white blood cell count is 19,000. CTA chest shows bilateral bullous disease which did not change from the previous imaging. He was admitted to medical surgical floor for acute toxic respiratory failure in addition to atrial fibrillation with RVR. During patients hospital stay he was found to have hemoptysis and pulmonology was consulted with recommendation for bronchoscopy which patient declined due to not wanting to be nothing by mouth after midnight. He was being treated for COPD exacerbation and pneumonia with IV antibiotics. He was also being treated for atrial fibrillation with RVR. However, patients leukocytosis continued to worsen and respiratory status started to decline as patient was requiring higher amounts of oxygenation. Infectious disease was consulted with adjustments to the IV antibiotics. Readdressed with patient about having bronchoscopy which he agreed but was now too unstable per pulmonology. Patient was now requiring NIPPV and was transferred to a higher acuity floor; patient was a DNR CCA non-intubation. Due to patients poor prognosis, palliative care was consulted with for recommendations for hospice. Patient was made comfortable per his and family request. He was pronounced on 08/20/17 at 11:55. - Additional Data Confirmation of as documented by pronouncing clinician: no pulse, no respirations, no heart sounds, pupils fixed and dilated Family: at bedside Attending physician: Jamie Vazquez Discharge Sum: Diag - PCOD Probable Cause of : Respiratory arrest Discharge Sum: Prov - Provider Primary care physician: Silvino Riddle Consults: 08/08/17 16:38 Consult to Cardiology [CONS] Routine Comment: Consulting Provider: Cardiology [place] Reason for Consult: A. fib with RVR Call Completed: Yes Consult to Pulmonology [CONS] Routine Consulting Provider: Pulm Crit Care [facility] [place] Reason for Consult: COPD exacerbation Call Completed: Yes 08/16/17 08:33 Consult to Infectious Diseases [CONS] Routine Consulting Provider: Infectious Disease [facility] Reason for Consult: Leukocytosis Time Notified: 08:00 Call Completed: Yes 08/18/17 16:49 Consult to Palliative Care [CONS] Routine Comment: Consulting Provider: Palliative Care [place] Reason for Consult: Poor prognosis for acute respiratory failure with hemoptysis Time Notified: 15:00 Call Completed: Yes 08/19/17 10:26 Consult to Speech Therapy [CONS] Stat Comment: Evaluate, develop and implement POC Reason for Consult: coughing with pills/food. not tolerating well. Time Notified: 10:27 Call Completed: Yes
--- NOTE | 2017-08-22 20:00 | Electrocardiograph Report ---
[place] [id number] Test Date: 2017-08-19 Pat Name: Emmanuel Bai Department: 110 Room: 2N03 Gender: M [employer] Records Clerk: : 1950 Requested By: Jamie Vazquez Order Number: [id number] Reading MD: Roz Thomas Measurements Intervals [place] Rate: 95 P: 83 CA: 137 QRS: 87 QRSD: 102 T: 76 QT: 345 QTc: 398 Interpretive Statements SINUS RHYTHM WITH FREQUENT VENTRICULAR PREMATURE COMPLEXES INCOMPLETE RIGHT BUNDLE BRANCH BLOCK ABNORMAL RHYTHM ECG Electronically Signed On 08-22-2017 19:59:09 EST by Roz Thomas
== END 2017-08-20 13:50 | disposition expired | DRG 871 ==
LOC: EMEROO 15:23 → 3BNU 15:23 → SUATTDRO 20:33 → 2NNU 08-08 20:35 → 2ANU 08-12 14:33 → 2NNU 08-17 17:55
PROVIDERS: ADMIT Nurse Practitioner Family; ATTEND Hospitalist